=== PATIENT | male | born 1945 | race Caucasian/White ===

== ENCOUNTER 2017-10-25 11:58 | Emergency (ER) | payer MEDICARE ==
[~2017-10-25] VITALS: Ht 180.3 cm; Wt 113.4 kg
[2017-10-25] MEDS ORDERED: morphine INJ 10 MG/ML 1ML (SYR OR VIAL) IM STA (12:48)
--- NOTE | 2017-10-25 12:50 | ED Integumentary General ---
General Chief Complaint: Skin/Wound Problems Stated Complaint: LUMP ON BACK OF NECK Nursing Triage Note: dr attempted to naomi neck abscess, unable to get anything out Source: patient, caregiver Exam Limitations: no limitations History of Present Illness Date Seen by Provider: Oct 25, 2017 Time Seen by Provider: 12:40 Initial Comments 71-year-old male patient presents to the emergency department for complaints of a lump of the back of the neck. Patient states it's been there for years and has previously gotten inflamed. Today it is much worse. Reports being seen by Dr. Pitt today who attempted to the naomi the area without success. Timing/Duration: getting worse, other (worse 1 week) Severity: moderate Possible Cause: no cause identified Modifying Factors: worse with other (worse with palpation) Allergies and Home Medications Allergies Coded Allergies: No Known Drug Allergies (Unverified , 10/25/17) Home Medications Hydrocodone/Acetaminophen 1 Each Tablet, 1 EACH PO Q4H PRN for pain Prescribed by: REYES REDMOND on 10/25/17 1347 Sulfamethoxazole/Trimethoprim 1 Each Tablet, 1 EACH PO BID Prescribed by: REYES REDMOND on 10/25/17 1347 Patient Home Medication List Home Medication List Reviewed: Yes Constitutional: No chills, No fever, No malaise EENTM: no symptoms reported Respiratory: no symptoms reported Cardiovascular: no symptoms reported Gastrointestinal: no symptoms reported Musculoskeletal: no symptoms reported Skin: see HPI, lumps (posterior neck) Psychiatric/Neurological: No Symptoms Reported All Other Systems Reviewed Negative Unless Noted: Yes (Negative excepted noted.) Past Xsvfvvn-Pxhnuu-Izzpvj Hx Patient Social History Recent Foreign Travel: No Contact w/Someone Who Travel: No Recent Infectious Disease Expo: No Respiratory History of Respiratory Disorde: Yes Respiratory Disorders: Pneumonia Cardiovascular History of Cardiac Disorders: Yes (heart failure with lower extremity edema) Cardiac Disorders: Atrial Fibrillation (paroxysmal atrial fibrillation), Cardiomyopathy, Hypertension Neurological History of Neurological Disord: Yes (neuritis and neuralgia; dizziness) Gastrointestinal History of Gastrointestinal Di: Yes Gastrointestinal Disorders: Gastroesophageal Reflux, Hepatitis (alcohol- induced hepatitis) Musculoskeletal History of Musculoskeletal Dis: Yes (generalized muscle weakness, unsteadiness on feet) Endocrine History of Endocrine Disorders: Yes Endocrine Disorders: Diabetes, Non-Insulin dep Reviewed Nursing Assessment Reviewed/Agree w Nursing PMH: Yes Family Medical History Significant Family History: No Pertinent Family Hx Physical Exam Vital Signs Vital Signs - First Documented 10/25/17 12:32 Temp 97.9 Pulse 81 Resp 20 B/P (MAP) 101/62 (75) Pulse Ox 98 O2 Delivery Room Air Capillary Refill : Less Than 3 Seconds General Appearance: WD/WN, no apparent distress HEENT: PERRL/EOMI, pharynx normal Neck: full range of motion, supple, other (6 x 6 cm area of swelling, fluctuance, erythema, and warmth with a central scab. Tender to palpation. Findings consistent with an infected sebaceous cyst.) Cardiovascular: regular rate, rhythm, no murmur Respiratory: lungs clear, normal breath sounds, no respiratory distress, no accessory muscle use Extremities: normal capillary refill Neurologic/Psychiatric: alert, normal mood/affect, oriented x 3 Skin: normal color, warm/dry, other (6 x6 cm area of swelling, fluctuance, erythema, and warmth with a central scabof the posterior neck. Tender to palpation. Findings consistent with an infected sebaceous cyst.) Skin Problem Location: neck (posterior neck) Skin Problem Character: abscess, erythema, swelling, tenderness, thickening, warm I&D : Site: posterior neck Blade Size: 11 I & D Procedure: betadine prep, sterile drapes applied, sterile dressing applied Packing/Drain: 1/4 Jimmy Drain (0 Prolene to secure the jimmy drain) Progress 2 cm incision made over the fluctuant area. a large amount of foul smelling yellowish-green, thick, chunky drainage expressed. blood loss minimal. patient tolerated the procedure well. Progress/Results/Core Measures Results/Orders My Orders Orders - REYES REDMOND Morphine Injection (Morphine Injection (10/25/17 12:48) Wound Culture (10/25/17 12:48) Lidocaine/Epi 2% 1:100,000 (Xylocaine/Ep (10/25/17 13:00) Sulfamethoxazole/Trimet Ds Tab (Bactrim (10/25/17 14:00) Hydrocodone/Apap 5/325 Tablet (Lortab 5 (10/25/17 14:00) Medications Given in ED Vital Signs/I&O Vital Sign - Last 12Hours 10/25/17 10/25/17 12:32 14:25 Temp 97.9 97.9 Pulse 81 81 Resp 20 20 B/P (MAP) 101/62 (75) 101/62 (75) Pulse Ox 98 98 O2 Delivery Room Air Room Air Blood Pressure Mean: 75 Departure Communication (Admissions) Progress Notes Patient seen and evaluated. Incision and drainage performed. Plan for discharge to home. Impression Impression: Primary Impression: Abscess of skin of neck Additional Impression: Sebaceous cyst Disposition: Condition: Improved Departure-Patient Inst. Decision time for Depature: 13:44 Referrals: CRUZITO CHASE RICHARD A DO (PCP/Family) Primary Care Physician Patient Instructions: Abscess Incision and Drainage (DC) Add. Discharge Instructions: All discharge instructions reviewed with patient and/or family. Voiced understanding. Medications as instructed. Continue usual home medications. Remove the dressing and Shower with antibacterial soap beginning tomorrow. Pat the wound dry and to redress the wound after the shower. Change the dressing twice daily with gauze, ABDs pad, and tape. Follow-up with Dr. Chase within the next 5-7 days for recheck and drain removal. Discuss possible need for cyst excision with Dr. Chase. Call for appointment time. Return to the emergency department for worsened redness, fever, or any other concerns. Scripts Hydrocodone/Acetaminophen (Hydrocodone-Acetamin 5-325 mg) 1 Each Tablet 1 EACH PO Q4H Y for pain, #20 TAB 0 Refills Prov: REYES REDMOND 10/25/17 Sulfamethoxazole/Trimethoprim (Bactrim Ds Tablet) 1 Each Tablet 1 EACH PO BID, #20 TAB 0 Refills Prov: REYES REDMOND 10/25/17 Images Head/Face 1 - Cellulitis, Swelling, Tenderness, Other-See Progress Note (sebaceous cyst abscess) Copy Copies To 1: MACHO PITT GRETCHEN L PA Oct 25, 2017 12:50
[2017-10-25] MEDS ORDERED: LIDOCAINE/EPI 2% 1:100,00 (XYLOCAINE) 20 ML VIAL INJ ONE (13:00)
[2017-10-25] MEDS ORDERED: HYDR-3812 PO (13:47)
[2017-10-25] MEDS ORDERED: SULF1TAB35 PO (13:47)
[2017-10-25] MEDS ORDERED: HYDROcodone/APAP 5 MG/325 MG (LORTAB) TAB PO ONE (14:00)
[2017-10-25] MEDS ORDERED: TRIM/SULFAMETH 160/800 (SEPTRA DS) TAB PO ONE (14:00)
[2017-10-25 14:25] VITALS: BP 101/62
== END 2017-10-25 14:02 | disposition home or self-care (01) ==
LOC: EDUNIT# 11:58 → ER 12:03
DX: L72.3 Sebaceous cyst (principal); L02.11 Cutaneous abscess of neck; K21.9 Gastro-esophageal reflux disease without esophagitis; E11.9 Type 2 diabetes mellitus without complications; I48.91 Unspecified atrial fibrillation; I10 Essential (primary) hypertension; Z87.01 Personal history of pneumonia (recurrent)
CPT/HCPCS: 87070; 87205; 96372

== ENCOUNTER 2017-12-12 05:35 | Outpatient (CLI) | payer MEDICARE ==
[~2017-12-12] VITALS: Ht 180.3 cm; Wt 113.4 kg
[~2017-12-12 05:35] MED LIST: HYDR-3812 PO; SULF1TAB35 PO
[2017-12-13] MEDS ORDERED: CYAN100088 PO (10:14)
[2017-12-13] MEDS ORDERED: DIGO125T PO (10:14)
[2017-12-13] MEDS ORDERED: LISI10TA2 PO (10:14)
[2017-12-13] MEDS ORDERED: DILT240C87 PO (10:14)
[2017-12-13] MEDS ORDERED: POLY119P5 PO (10:14)
[2017-12-13] MEDS ORDERED: HYDR-3812 PO (10:14)
[2017-12-13] MEDS ORDERED: TRAZ150T72 PO (10:14)
[2017-12-13] MEDS ORDERED: METF500T5 PO (10:14)
[2017-12-13] MEDS ORDERED: WARF2.5T82 PO (10:14)
[2017-12-13] MEDS ORDERED: POTA-51 PO (10:14)
[2017-12-13] MEDS ORDERED: FOLI1TAB24 PO (10:14)
[2017-12-13] MEDS ORDERED: MULT-593 PO (10:14)
[2017-12-13] MEDS ORDERED: ACET325T49 PO (10:14)
[2017-12-13] MEDS ORDERED: WARF-47 PO (10:14)
== END 2017-12-12 16:00 ==
LOC: PREOP 05:35
PROVIDERS: ATTEND Specialist
DX: Z01.818 Encounter for other preprocedural examination (principal); H26.499 Other secondary cataract, unspecified eye

== ENCOUNTER 2017-12-20 08:07 | Day surgery (SDC) | payer MEDICARE ==
[~2017-12-20] VITALS: Ht 180.3 cm; Wt 113.4 kg
[~2017-12-20 08:07] MED LIST changes: +ACET325T49 PO; +CYAN100088 PO; +DIGO125T PO; +DILT240C87 PO; +FOLI1TAB24 PO; +LISI10TA2 PO; +METF500T5 PO; +MULT-593 PO; +POLY119P5 PO; +POTA-51 PO; +TRAZ150T72 PO; +WARF-47 PO; +WARF2.5T82 PO
[2017-12-20 08:16] VITALS: BP 133/79
[2017-12-20] MEDS: TETRACAINE 0.5% OPHTH SOLN 4 ML BTL (SINGLE DOSE ONLY) OU PRN ×4 (08:21→08:51)
[2017-12-20] MEDS: TROPICAMIDE 1% OPH SOLN (MYDRIACYL) 15 ML BTL OU PRN ×3 (08:25→08:51)
[2017-12-20] MEDS: PHENYLEPHRINE 10% OPHTH (NEO-SYN) 5 ML BTL OU PRN ×3 (08:25→08:51)
[2017-12-20 09:43] VITALS: BP 133/79
--- NOTE | 2017-12-20 09:46 | Ophthalmology Operative Report ---
YAG Capsulotomy PREOPERATIVE DIAGNOSIS: Secondary Cataract Both Eye POSTOPERATIVE DIAGNOSIS: Secondary Cataract Both Eye PROCEDURE: YAG Capsulotomy, both eye SURGEON: Dennys Adams ANESTHESIA: Topical anesthesia COMPLICATIONS: None ESTIMATED BLOOD LOSS: Minimal DESCRIPTION OF PROCEDURE: After proper informed consent was obtained, the patient's, a 72 male both eye received one drop of Tropicamide and one drop of Tetracaine. The patient was then placed at the YAG laser and using a power of [4.0 ] millijoules and [R 28, L 29 ] bursts were used to fashion a central capsulotomy. The patient tolerated the procedure well without complications and the patient's pressure was [11, 12 ] shortly after the laser. DENNYS ADAMS MD Dec 20, 2017 09:45
--- NOTE | 2017-12-20 09:46 | Ophthalmologist Pre-Op Note ---
Pre-Operative Progress Note H&P Reviewed The H&P was reviewed, patient examined and no changes noted. Date H&P Reviewed: Dec 20, 2017 Time H&P Reviewed: 09:46 Pre-Op Dx Secondary Cataract, Both Eye DARYN ADAMS MD Dec 20, 2017 09:46
== END 2017-12-20 09:43 | disposition home or self-care (01) ==
LOC: SDC 08:07
PROVIDERS: ATTEND Specialist
DX: H26.40 Unspecified secondary cataract (principal); E11.36 Type 2 diabetes mellitus with diabetic cataract; I48.91 Unspecified atrial fibrillation; I42.9 Cardiomyopathy, unspecified; R17 Unspecified jaundice; M79.2 Neuralgia and neuritis, unspecified; F17.200 Nicotine dependence, unspecified, uncomplicated; Z79.01 Long term (current) use of anticoagulants; Z79.84 Long term (current) use of oral hypoglycemic drugs; Z79.899 Other long term (current) drug therapy
CPT/HCPCS: 82962

== ENCOUNTER 2018-07-09 01:35 | Inpatient (IN) | payer MEDICARE ==
[~2018-07-09] VITALS: Ht 180.3 cm; Wt 81.4 kg
[2018-07-09] VITALS (28 sets, daily range): BP systolic 82–138; BP diastolic 46–89
[~2018-07-09 01:35] MED LIST changes: +METF-397 PO; -METF500T5 PO
[2018-07-09] MEDS ORDERED: NS IV 1000 ML 1,000 ML IV ONE (01:44)
[2018-07-09 01:48] LABS: BASOPHILS # (AUTO) 0.1 10^3/uL (0.0-0.1); BASOPHILS % (AUTO) 1 % (0-10); EOSINOPHILS # (AUTO) 0.2 10^3/uL (0.0-0.3); EOSINOPHILS % (AUTO) 2 % (0-10); HEMATOCRIT 32 % (40-54); HEMOGLOBIN 10.5 G/DL (13.3-17.7); LYMPHOCYTES # (AUTO) 2.4 X 10^3 (1.0-4.0); LYMPHOCYTES % (AUTO) 23 % (12-44); MEAN CORPUSCULAR HEMOGLOBIN 33 PG (25-34); MEAN CORPUSCULAR HGB CONC 33 G/DL (32-36); MEAN CORPUSCULAR VOLUME 101 FL (80-99); MEAN PLATELET VOLUME 9.8 FL (7.4-10.4); MONOCYTES % (AUTO) 9 % (0-12); NEUTROPHILS # (AUTO) 6.7 X 10^3 (1.8-7.8); NEUTROPHILS % (AUTO) 65 % (42-75); PLATELET COUNT 365 10^3/uL (130-400); RED BLOOD COUNT 3.14 10^6/uL (4.35-5.85); RED CELL DISTRIBUTION WIDTH 17.6 % (10.0-14.5); WHITE BLOOD COUNT 10.3 10^3/uL (4.3-11.0)
[2018-07-09 01:56] LABS: PROTHROMBIN TIME PATIENT 13.3 SEC (12.2-14.7)
[2018-07-09] MEDS ORDERED: CHLO25CA10 PO (02:07)
[2018-07-09] MEDS ORDERED: FURO-125 PO (02:07)
[2018-07-09] MEDS ORDERED: PANT40TA2 PO (02:07)
[2018-07-09] MEDS ORDERED: PREG50CA2 PO (02:07)
[2018-07-09] MEDS ORDERED: AMOX500C2 PO (02:07)
[2018-07-09 02:15] LABS: ALANINE AMINOTRANSFERASE 11 U/L (0-55); ALBUMIN 2.6 GM/DL (3.2-4.5); ALKALINE PHOSPHATASE 123 U/L (40-136); BILIRUBIN,TOTAL 0.4 MG/DL (0.1-1.0); BUN/CREATININE RATIO 13; CALCIUM 8.9 MG/DL (8.5-10.1); CARBON DIOXIDE 25 MMOL/L (21-32); CHLORIDE 103 MMOL/L (98-107); GFR ESTIMATED > 60; GLUCOSE 106 MG/DL (70-105); POTASSIUM 4.4 MMOL/L (3.6-5.0); SODIUM 137 MMOL/L (135-145); TOTAL PROTEIN 5.6 GM/DL (6.4-8.2)
--- NOTE | 2018-07-09 02:18 | ED General ---
General Chief Complaint: Cardiac/General Problems Stated Complaint: POSSIBLE HYPOTENSION Nursing Triage Note: BROUGHT IN BY [facility] FOR LOW BLOOD PRESSURE, LETHARGY, LOW SPO2 S/P FALL APPROX. 2230 07/08/18 Nursing Sepsis Screen: No Definite Risk Source of Information: Patient, Caregiver, EMS, [facility] Records Exam Limitations: Physical Impairments History of Present Illness Date Seen by Provider: Jul 09, 2018 Time Seen by Provider: 01:33 Initial Comments This 72-year-old gentleman from [facility] presents to the emergency room via EMS with altered mental status, hypotension, and hypoxia. He reportedly was found down after a fall in his room. They felt he likely slid out of his bed. Initially there was felt to be no injury. However , around 23:00 he developed slurred speech and hypotension. These symptoms worsened and EMS was activated. His fall was unwitnessed. Patient answers some questions on assessment and denies pain. He is hypoxic and requiring oxygen supplementation. He has a wet sounding cough. [facility] staff reports he was readmitted to them on July 02 after having been admitted at [facility] for treatment of pneumonia. He has history of GI bleed and is presently on warfarin for atrial fibrillation. Allergies and Home Medications Allergies Coded Allergies: No Known Drug Allergies (Unverified , 10/25/17) Home Medications Acetaminophen 325 Mg Tablet, 650 MG PO Q6H PRN for PAIN/FEVER, (Reported) Cyanocobalamin (Vitamin B-12) 1,000 Mcg Tablet, 1,000 MCG PO DAILY, (Reported) Digoxin 125 Mcg Tablet, 125 MCG PO DAILY, (Reported) Diltiazem HCl 240 Mg Capsule.er, 240 MG PO DAILY, (Reported) Folic Acid 1 Mg Tablet, 1 MG PO DAILY, (Reported) Lisinopril 10 Mg Tablet, 10 MG PO DAILY, (Reported) Metformin HCl 500 Mg Tablet, 500 MG PO BID WITH MEALS, (Reported) Multivitamin with Minerals 1 Each Tablet, 1 EACH PO DAILY, (Reported) Pantoprazole Sodium 40 Mg Tablet.dr, 40 MG PO DAILY, (Reported) Potassium Chloride 20 Meq Tablet.er, 20 MEQ PO DAILY, (Reported) Trazodone HCl 150 Mg Tablet, 150 MG PO HS, (Reported) Warfarin Sodium 2.5 Mg Tablet, 2.5 MG PO Q48H, (Reported) alternate with 2mg dose Patient Home Medication List Home Medication List Reviewed: Yes Review of Systems Review of Systems Constitutional: see HPI, weakness EENTM: no symptoms reported Respiratory: cough Cardiovascular: see HPI Gastrointestinal: no symptoms reported Genitourinary: no symptoms reported Musculoskeletal: no symptoms reported Skin: see HPI Psychiatric/Neurological: See HPI Hematologic/Lymphatic: No Symptoms Reported Immunological/Allergic: no symptoms reported Past Atvvqzz-Wapzmk-Enfask Hx Past Med/Social Hx: Reviewed Nursing Past Med/Soc Hx Patient Social History Alcohol Use: Past History Recreational Drug Use: No Smoking Status: Unknown if Ever Smoked 2nd Hand Smoke Exposure: No Recent Foreign Travel: No Contact w/Someone Who Travel: No Recent Infectious Disease Expo: No Recent Hopitalizations: No Immunizations Up To Date Tetanus Booster (TDap): Unknown Seasonal Allergies Seasonal Allergies: No Past Medical History Surgeries: No (UNKNOWN) Respiratory: Yes Pneumonia Cardiac: Yes (heart failure with lower extremity edema) Atrial Fibrillation, Cardiomyopathy, Hypertension Neurological: Yes (neuritis and neuralgia; dizziness) Genitourinary: No Gastrointestinal: Yes Gastroesophageal Reflux, Hepatitis Musculoskeletal: Yes (generalized muscle weakness, unsteadiness on feet) Endocrine: Yes Diabetes, Non-Insulin dep HEENT: No Cancer: No Psychosocial: No Blood Disorders: No Family Medical History No Pertinent Family Hx Physical Exam-Suspected Sepsis Physical Exam Vital Signs Vital Signs - First Documented Capillary Refill : Less Than 3 Seconds Blood Pressure Mean: 61 Height, Weight, BMI Height: 5'11.00" Weight: 230lbs. 0.0oz. 104.940186sa; BMI Method:Estimated General Appearance: No Apparent Distress, WD/WN, Other (lethargic) HEENT: PERRL/EOMI, Normal ENT Inspection Neck: Normal Inspection Respiratory: No Accessory Muscle Use, No Respiratory Distress, Crackles (coarse , wet) Cardiovascular: Regular Rate, Rhythm, No Edema, No Murmur Gastrointestinal: Normal Bowel Sounds, Non Tender, Soft Extremity: Normal Inspection, No Pedal Edema Neurologic/Psychiatric: Alert, Disoriented, Other (weak) Skin: normal color, other (Pale and cool) Focused Exam Lactate Level 07/09/18 01:50: Lactic Acid Level 1.00 Lactic Acid Level Progress/Results/Core Measures Suspected Sepsis Recent Fever Within 48 Hours: No Infection Criteria Present: Documented Infection New/Unexplained Altered Menta: No Sepsis Screen: No Definite Risk SIRS Temperature:98.1 Pulse: 72 Respiratory Rate: 20 Laboratory Tests 07/09/18 01:40: White Blood Count 10.3 Blood Pressure 84 /49 Mean: 61 07/09/18 01:50: Lactic Acid Level 1.00 Laboratory Tests 07/09/18 01:40: Creatinine 0.90, INR Comment 1.0, Platelet Count 365, Total Bilirubin 0.4 Results/Orders Lab Results Laboratory Tests Test 07/09/18 01:40 07/09/18 01:50 07/09/18 02:20 07/09/18 06:00 Range/Units White Blood Count 10.3 4.3-11.0 10^3/uL Red Blood Count 3.14 L 4.35-5.85 10^6/uL Hemoglobin 10.5 L 13.3-17.7 G/DL Hematocrit 32 L 40-54 % Mean Corpuscular Volume 101 H 80-99 FL Mean Corpuscular Hemoglobin 33 25-34 PG Mean Corpuscular Hemoglobin Concent 33 32-36 G/DL Red Cell Distribution Width 17.6 H 10.0-14.5 % Platelet Count 365 130-400 10^3/uL Mean Platelet Volume 9.8 7.4-10.4 FL Neutrophils (%) (Auto) 65 42-75 % Lymphocytes (%) (Auto) 23 12-44 % Monocytes (%) (Auto) 9 0-12 % Eosinophils (%) (Auto) 2 0-10 % Basophils (%) (Auto) 1 0-10 % Neutrophils # (Auto) 6.7 1.8-7.8 X 10^3 Lymphocytes # (Auto) 2.4 1.0-4.0 X 10^3 Monocytes # (Auto) 1.0 0.0-1.0 X 10^3 Eosinophils # (Auto) 0.2 0.0-0.3 10^3/uL Basophils # (Auto) 0.1 0.0-0.1 10^3/uL Prothrombin Time 13.3 12.2-14.7 SEC INR Comment 1.0 0.8-1.4 Activated Partial Thromboplast Time 35 24-35 SEC Sodium Level 137 135-145 MMOL/L Potassium Level 4.4 3.6-5.0 MMOL/L Chloride Level 103 98-107 MMOL/L Carbon Dioxide Level 25 21-32 MMOL/L Anion Gap 9 5-14 MMOL/L Blood Urea Nitrogen 12 7-18 MG/DL Creatinine 0.90 0.60-1.30 MG/DL Estimat Glomerular Filtration Rate > 60 BUN/Creatinine Ratio 13 Glucose Level 106 H 70-105 MG/DL Calcium Level 8.9 8.5-10.1 MG/DL Corrected Calcium 10.0 8.5-10.1 MG/DL Total Bilirubin 0.4 0.1-1.0 MG/DL Aspartate Amino Transf (AST/SGOT) 15 5-34 U/L Alanine Aminotransferase (ALT/SGPT) 11 0-55 U/L Alkaline Phosphatase 123 40-136 U/L B-Type Natriuretic Peptide 83.2 <100.0 PG/ML Total Protein 5.6 L 6.4-8.2 GM/DL Albumin 2.6 L 3.2-4.5 GM/DL Lactic Acid Level 1.00 0.50-2.00 MMOL/L Digoxin Level 0.69 L 0.80-2.00 NG/ML Urine Color YELLOW Urine Clarity CLEAR Urine pH 5 5-9 Urine Specific [place] 1.015 L 1.016-1.022 Urine Protein NEGATIVE NEGATIVE Urine Glucose (UA) NEGATIVE NEGATIVE Urine Ketones NEGATIVE NEGATIVE Urine Nitrite NEGATIVE NEGATIVE Urine Bilirubin NEGATIVE NEGATIVE Urine Urobilinogen NORMAL NORMAL MG/DL Urine Leukocyte Esterase 1+ H NEGATIVE Urine RBC (Auto) NEGATIVE NEGATIVE Urine RBC RARE /HPF Urine WBC RARE /HPF Urine Squamous Epithelial Cells RARE /HPF Urine Crystals NONE /LPF Urine Bacteria TRACE /HPF Urine Casts PRESENT /LPF Urine Hyaline Casts 2-5 H /LPF Urine Mucus MODERATE H /LPF Urine Culture Indicated NO Blood Gas Puncture Site L RAD Blood Gas Patient Temperature 97.0 Arterial Blood pH 7.34 *L 7.37-7.43 Arterial Blood Partial Pressure CO2 49 H 35-45 MMHG Arterial Blood Partial Pressure O2 46 L 79-93 MMHG Arterial Blood HCO3 26 23-27 MMOL/L Arterial Blood Total CO2 27.8 21.0-31.0 MMOL/L Arterial Blood Oxygen Saturation 79 L 94-100 % Arterial Blood Base Excess 0.9 -2.5-2.5 MMOL/L Brian Test YES-POS Blood Gas Ventilator Setting NO Blood Gas Inspired Oxygen 2L Glucometer 107 70-110 MG/DL Micro Results Microbiology 07/09/18 Influenza Types A,B Antigen (YOSSI) - Final, Complete My Orders Orders - LIONEL MAC MD Cbc With Automated Diff (07/09/18 01:43) Comprehensive Metabolic Panel (07/09/18 01:43) Blood Culture (07/09/18 01:43) Sputum Culture (07/09/18 01:43) Urinalysis (07/09/18 01:43) Urine Culture (07/09/18 01:43) Protime With Inr (07/09/18 01:43) Partial Thromboplastin Time (07/09/18 01:43) Chest 1 View, Ap/Pa Only (07/09/18 01:43) Saline Lock/Iv-Start (07/09/18 01:43) Saline Lock/Iv-Start (07/09/18 01:43) Vital Signs Adult Sepsis Patie Q15M (07/09/18 01:43) O2 (07/09/18 01:43) Remove Rings In Anticipation O (07/09/18 01:43) Lactic Acid Analyzer (07/09/18 01:43) Saline Lock/Iv-Start (07/09/18 01:44) Ns Iv 1000 Ml (Sodium Chloride 0.9%) (07/09/18 01:44) BNP (07/09/18 01:44) Influenza A And B Antigens (07/09/18 01:44) Ct Head/Cervical Spine Wo (07/09/18 02:06) Ct Chest/Abdomen/Pelvis Wo (07/09/18 02:09) Gleason Cath (07/09/18 02:09) Piperacillin Sodium/Tazobactam (Zosyn Vi (07/09/18 03:00) Digoxin (07/09/18 02:59) Medications Given in ED Current Medications Medications Dose Ordered Sig/Benito Route Start Time Stop Time Status Last Admin Dose Admin Piperacillin Sod/ Tazobactam Sod 4.5 gm/Sodium Chloride 100 ml @ 200 mls/hr ONCE ONCE IV 07/09/18 03:00 07/09/18 03:29 DC 07/09/18 03:03 200 MLS/HR Sodium Chloride 1,000 ml @ 0 mls/hr Q0M ONCE IV 07/09/18 01:44 07/09/18 01:45 DC 07/09/18 01:52 0 MLS/HR Vital Signs/I&O 1107/09/18 07/09/18 07/09/18 01:36 01:36 04:11 04:20 Temp 98.1 98.1 Pulse 72 64 Resp 20 14 B/P (MAP) 84/49 (61) 108/58 (75) Pulse Ox 98 97 94 O2 Delivery Simple Mask Simple Mask Simple Mask Room Air O2 Flow Rate 10.00 10.00 6.00 07/09/18 07/09/18 07/09/18 07/09/18 04:29 04:45 05:00 05:14 Temp 96.4 Pulse 65 64 64 Resp 12 11 12 B/P (MAP) 102/68 (79) 107/61 (76) 89/48 (62) Pulse Ox 94 94 93 93 O2 Delivery Room Air Room Air Room Air Nasal Cannula O2 Flow Rate 2.00 07/09/18 07/09/18 07/09/18 07/09/18 05:14 05:15 05:28 05:30 Pulse 64 61 65 65 Resp 12 14 B/P (MAP) 82/46 (58) 93/59 (70) Pulse Ox 96 94 100 O2 Delivery Nasal Cannula Nasal Cannula O2 Flow Rate 2.00 2.00 07/09/18 07/09/18 07/09/18 07/09/18 05:45 06:00 06:02 06:15 Temp 97.0 Pulse 62 64 63 Resp 11 12 12 B/P (MAP) 105/63 (77) 109/62 (78) 112/62 (79) Pulse Ox 99 100 100 O2 Delivery Nasal Cannula Nasal Cannula Nasal Cannula O2 Flow Rate 2.00 2.00 2.00 07/09/18 07/09/18 07/09/18 06:30 06:45 06:50 Pulse 64 65 Resp 12 B/P (MAP) 104/64 (77) 111/57 (75) Pulse Ox 95 94 92 O2 Delivery Nasal Cannula Nasal Cannula Nasal Cannula O2 Flow Rate 2.00 2.00 2.00 Capillary Refill : Less Than 3 Seconds Blood Pressure Mean: 61 Progress Note : Progress Note Hypotension resolved with 2 L IV fluids. There was concern that he may have an intracranial or intra-abdominal bleed given the hypotension and change in mental status. CT scan of the head revealed no intracranial hemorrhage. CT of the chest, abdomen and pelvis revealed a right lower lobe pneumonia but no evidence of internal bleeding. Antibiotics were started in the ER after blood cultures were drawn. Diagnostic Imaging Diagonstic Imaging: Xray Plain Films/CT/US/NM/MRI: chest Comments Chest x-ray viewed by me. Report not yet available. Probable basilar atelectasis with no overt pneumonia identified. Diagonstic Imaging: CT Plain Films/CT/US/NM/MRI: c-spine, head Comments CT head and C-spine viewed by me and stat rad report reviewed. No acute findings identified. Diagonstic Imaging: CT Plain Films/CT/US/NM/MRI: chest, abdomen, pelvis Comments CT viewed by me and [facility] report reviewed. There is a right lower lobe pneumonia and small pleural effusion. No evidence of internal bleeding. Departure Communication (Admissions) Time/Spoke to Admitting Phy: 03:00 Dr. Pitt Impression Primary Impression: Right lower lobe pneumonia Qualified Codes: J18.1 - Lobar pneumonia, unspecified organism Additional Impressions: Hypoxia Hypotension Qualified Codes: I95.9 - Hypotension, unspecified Altered mental status Qualified Codes: R41.82 - Altered mental status, unspecified Fall Qualified Codes: W19.XXXA - Unspecified fall, initial encounter Disposition: ADMITTED INPATIENT Condition: Improved Admissions Decision to Admit Reason: Admit from ER (General) Decision to Admit/Date: Jul 09, 2018 Time/Decision to Admit Time: 01:35 Departure-Patient Inst. Referrals: MACHO PITT DO (PCP/Family) Primary Care Physician LIONEL MAC MD Jul 09, 2018 02:18
[2018-07-09 02:27] LABS: BILIRUBIN,URINE NEGATIVE (NEGATIVE); CLARITY,URINE CLEAR; COLOR,URINE YELLOW; GLUCOSE, URINE (UA) NEGATIVE (NEGATIVE); KETONES,URINE NEGATIVE (NEGATIVE); LEUKOCYTE ESTERASE ,URINE 1+ (NEGATIVE); NITRITE,URINE NEGATIVE (NEGATIVE); PH,URINE 5 (5-9); PROTEIN,URINE NEGATIVE (NEGATIVE); UROBILINOGEN,URINE NORMAL (NORMAL)
[2018-07-09 02:48] LABS: BACTERIA,URINE TRACE /HPF; RBC,URINE RARE /HPF; SQUAMOUS EPITHELIAL CELL,UR RARE /HPF; WBC,URINE RARE /HPF
[2018-07-09] MEDS ORDERED: PIPERACILLIN SODIUM/TAZOBACTAM 4.5 GM in NS (IVPB) 100 ML IV ONE (03:00)
[2018-07-09] MEDS ORDERED: NS IV 1000 ML 1,000 ML ONE (05:07)
[2018-07-09] MEDS ORDERED: PHARMACY TO DOSE IV SCH (05:30)
[2018-07-09] MEDS ORDERED: CATHETER FLUSH 10 ML SYR IV PRN (05:30)
[2018-07-09] MEDS ORDERED: ONDANSETRON 4 MG/2 ML (SDV) Z0FRAN IV PRN (05:30)
--- NOTE | 2018-07-09 05:32 | Pulmonary Consultation ---
History of Present Illness History of Present Illness Date of Consultation 07/09/18 05:27 Date of Admission Allergies and Home Medications Allergies Coded Allergies: No Known Drug Allergies (Unverified , 10/25/17) Home Medications Acetaminophen 325 Mg Tablet, 650 MG PO Q6H PRN for PAIN/FEVER, (Reported) Cyanocobalamin (Vitamin B-12) 1,000 Mcg Tablet, 1,000 MCG PO DAILY, (Reported) Digoxin 125 Mcg Tablet, 125 MCG PO DAILY, (Reported) Diltiazem HCl 240 Mg Capsule.er, 240 MG PO DAILY, (Reported) Folic Acid 1 Mg Tablet, 1 MG PO DAILY, (Reported) Lisinopril 10 Mg Tablet, 10 MG PO DAILY, (Reported) Metformin HCl 500 Mg Tablet, 500 MG PO BID WITH MEALS, (Reported) Multivitamin with Minerals 1 Each Tablet, 1 EACH PO DAILY, (Reported) Pantoprazole Sodium 40 Mg Tablet.dr, 40 MG PO DAILY, (Reported) Potassium Chloride 20 Meq Tablet.er, 20 MEQ PO DAILY, (Reported) Trazodone HCl 150 Mg Tablet, 150 MG PO HS, (Reported) Warfarin Sodium 2.5 Mg Tablet, 2.5 MG PO Q48H, (Reported) alternate with 2mg dose Past Ehqxdqi-Leghjl-Znymoi Hx Patient Social History Alcohol Use: Past History Recreational Drug Use: No Smoking Status: Unknown if Ever Smoked 2nd Hand Smoke Exposure: No Recent Foreign Travel: No Contact w/Someone Who Travel: No Recent Infectious Disease Expo: No Recent Hopitalizations: No Immunizations Up To Date Tetanus Booster (TDap): Unknown Seasonal Allergies Seasonal Allergies: No Past Medical History Surgeries: No (UNKNOWN) Respiratory: Yes Pneumonia Cardiac: Yes (heart failure with lower extremity edema) Atrial Fibrillation, Cardiomyopathy, Hypertension Neurological: Yes (neuritis and neuralgia; dizziness) Genitourinary: No Gastrointestinal: Yes Gastroesophageal Reflux, Hepatitis Musculoskeletal: Yes (generalized muscle weakness, unsteadiness on feet) Endocrine: Yes Diabetes, Non-Insulin dep HEENT: No Cancer: No Psychosocial: No Blood Disorders: No Family Medical History No Pertinent Family Hx Sepsis Event Evaluation Height, Weight, BMI Height: 5'11.00" Weight: 180lbs. 6.0oz. 81.956012vh; 25.2 BMI Method:Estimated Exam Exam Vital Signs Date Time Temp Pulse Resp B/P (MAP) Pulse Ox O2 Delivery O2 Flow Rate FiO2 07/09/18 05:14 93 Nasal Cannula 2.00 07/09/18 04:29 96.4 65 12 102/68 (79) 94 Room Air 07/09/18 04:11 98.1 64 14 108/58 (75) 97 Simple Mask 6.00 07/09/18 01:36 Simple Mask 10.00 07/09/18 01:36 98.1 72 20 84/49 (61) 98 Simple Mask 10.00 I & O 07/09/18 07:00 Intake Total 2400 ml Balance 2400 ml Height & Weight Height: 5'11.00" Weight: 180lbs. 6.0oz. 81.194425pc; 25.2 BMI Method:Estimated Capillary Refill: Less Than 3 Seconds Results Lab Laboratory Tests 07/09/18 01:40 Assessment/Plan Assessment/Plan Pneumonia with hypoxia -Change Abx to Jamin Talbot for now -Pt was recently in hospital at [facility] cultures -Urine strep, legionella ag -oxygen Hypotension probably secondary to dehydration -NS at 125 -Will give 1 liter bolus NS Confusion/dementia DVT/GI ppx -SCDs -protonix -Lovenox NEREYDA DUMONT DO Jul 09, 2018 05:32
[2018-07-09] MEDS: CATHETER FLUSH 10 ML SYR IV SCH ×3 (05:35→21:49)
[2018-07-09] MEDS: NS IV 1000 ML 1,000 ML IV SCH ×2 (05:36→15:22)
[2018-07-09] MEDS ORDERED: RT-ALBUTEROL SULF 2.5 MG/3 ML PRE-MIX VIAL INH PRN (05:45)
[2018-07-09] MEDS ORDERED: NS IV 1000 ML 1,000 ML IV SCH (05:45)
[2018-07-09 06:09] LABS: ABG BASE EXCESS 0.9 MMOL/L (-2.5-2.5); ABG OXYGEN SATURATION 79 % (94-100); ABG PCO2 49 MMHG (35-45); ABG PO2 46 MMHG (79-93); ABG TCO2 27.8 MMOL/L (21.0-31.0)
[2018-07-09 06:13] LABS: ALLENS TEST YES-POS
[2018-07-09 06:14] LABS: INSPIRED O2 2L; VENTILATOR NO
[2018-07-09 06:15] LABS: ABG PH 7.34 (7.37-7.43)
--- NOTE | 2018-07-09 06:29 | Diagnostic Imaging Report ---
CLINICAL INDICATION: Patient with low blood pressure, lethargy, low oxygen saturation status post fall approximately 2230 hours on 07/08/2018 . EXAM: Head CT without IV contrast. Axial CT scan of the cervical spine with sagittal and coronal reformations. COMPARISON: None. FINDINGS: Head CT: There is no evidence of acute cerebral infarct, intracranial hemorrhage, or gross mass effect. There is diffuse brain parenchymal volume loss seen. There is patchy and confluent areas of low-attenuation white matter changes throughout both cerebral hemispheres, likely representing chronic small vessel ischemic disease. There is normal petit-white matter distinction. There is no significant midline shift or herniation. There is no evidence of hydrocephalus. The basal cisterns are unremarkable. The skull, extracranial soft tissue, and orbits are unremarkable. The paranasal sinuses are unremarkable. Temporal bones show no significant abnormality. Cervical spine: There is no acute cervical spine fracture or dislocation. There is chronic compression deformity involving the upper endplate of the T2 vertebra and inferior endplate of the C3 vertebra. There is diffuse disc bulge at the C4-C5 with associated usqpmrbd-[id number] bilateral neural foramen narrowing. There is at least mild central canal narrowing. There is wqiuvmch-mm-cqzpec loss of intervertebral disc height at the C4-C5 level. There are degenerative spurs seen throughout cervical spine and facet arthropathy. The neck soft tissue structures show no significant abnormality for patient's age. There is an incompletely visualized right pleural effusion and azygous lobe. IMPRESSION: 1: Age-related brain parenchymal changes with no evidence of acute intracranial process or intracranial hemorrhage. There is no skull fracture. 2: Multilevel cervical spine degenerative disease with no acute fracture or dislocation. 3: Right pleural effusion and azygous lobe. I agree with [employer] report. Dictated by: Dictated on workstation # [id number]
[2018-07-09] MEDS: RT-ALBUTEROL/IPRATROPIUM 3 ML (DUONEB) VIAL INH SCH ×3 (06:49→14:16)
--- NOTE | 2018-07-09 07:04 | Diagnostic Imaging Report ---
Clinical indication: Patient brought in by EMS with low blood pressure, lethargy, low oxygen saturation status post fall. Exam: Portable chest x-ray upright view. Comparison: None. Findings: There is decreased aeration right lung with patchy airspace opacification right lung base concerning for infiltrate or atelectasis. There is concern for right pleural effusion. There is no pneumothorax. Azygous lobe is seen. Left lung is clear. There is cardiomegaly with no significant pulmonary vascular congestion. There are degenerative spurs involving the thoracic spine. Impression: 1: There is right basilar atelectasis versus infiltrate and small right pleural effusion. 2: There is cardiomegaly with no significant pulmonary vascular congestion. Dictated by: Dictated on workstation # [id number]
[2018-07-09] MEDS ORDERED: VANCOMYCIN 1,750 MG/NS 500 ML IVPB IV NR ×2 (07:35)
--- NOTE | 2018-07-09 07:38 | History & Physicial ---
History of Present Illness History of Present Illness Reason for visit/HPI Patient recent resident of [facility] and [facility]. Patient had an unwitnessed fall. Patient's blood pressure 50/30, lethargic and low pulse ox. Patient recently and [facility] for pneumonia. Patient in acute mental status change and slurred speech. Patient transferred to emergency room area Chest x-ray shows opacified right lung base concerning for infiltrate or atelectasis and right pleural effusion. Patient has are moist and difficult to understand. Patient admitted to ICU Date of Admission Jul 09, 2018 at 03:27 Time Seen by a Provider: 07:33 I consulted on this patient on 07/09/18 07:26 Attending Physician Sigifredo Pitt DO Admitting Physician Sigifredo Pitt DO Consult Allergies and Home Medications Allergies Coded Allergies: No Known Drug Allergies (Unverified , 10/25/17) Home Medications Acetaminophen 325 Mg Tablet, 650 MG PO Q6H PRN for PAIN/FEVER, (Reported) Cyanocobalamin (Vitamin B-12) 1,000 Mcg Tablet, 1,000 MCG PO DAILY, (Reported) Digoxin 125 Mcg Tablet, 125 MCG PO DAILY, (Reported) Diltiazem HCl 240 Mg Capsule.er, 240 MG PO DAILY, (Reported) Folic Acid 1 Mg Tablet, 1 MG PO DAILY, (Reported) Lisinopril 10 Mg Tablet, 10 MG PO DAILY, (Reported) Metformin HCl 500 Mg Tablet, 500 MG PO BID WITH MEALS, (Reported) Multivitamin with Minerals 1 Each Tablet, 1 EACH PO DAILY, (Reported) Pantoprazole Sodium 40 Mg Tablet.dr, 40 MG PO DAILY, (Reported) Potassium Chloride 20 Meq Tablet.er, 20 MEQ PO DAILY, (Reported) Trazodone HCl 150 Mg Tablet, 150 MG PO HS, (Reported) Warfarin Sodium 2.5 Mg Tablet, 2.5 MG PO Q48H, (Reported) alternate with 2mg dose Patient Home Medication List Home Medication List Reviewed: No Past Tfubvka-Bdbedf-Htlbgo Hx Patient Social History Employed/Student: retired Alcohol Use: Regular Use Number of Drinks Today: 1 Alcohol Beverage of Choice: Whiskey, Wine Recreational Drug Use: No Smoking Status: Unknown if Ever Smoked 2nd Hand Smoke Exposure: No Physical Abuse Screen: No Sexual Abuse: No Recent Foreign Travel: No Contact w/other who traveled: No Recent Hopitalizations: No Recent Infectious Disease Expo: No Immunizations Up To Date Tetanus Booster (TDap): Unknown Date of Pneumonia Vaccine: May 07, 2018 Date of Influenza Vaccine: May 14, 2018 Seasonal Allergies Seasonal Allergies: No Surgeries No (UNKNOWN) Respiratory Yes Cardiovascular Yes (heart failure with lower extremity edema) Atrial Fibrillation, Cardiomyopathy, Hypertension Neurological Yes (neuritis and neuralgia; dizziness) Genitourinary Yes (current UTI) Gastrointestinal Yes (ileus) Gastroesophageal Reflux, Liver Disease/Jaundice, Gastrointestinal Bleed, Hepatitis Musculoskeletal Yes (generalized muscle weakness, unsteadiness on feet) Endocrine History of Endocrine Disorders: Yes Endocrine Disorders: Diabetes, Non-Insulin dep HEENT History of HEENT Disorders: No Loss of Vision: Denies Hearing Impairment: Denies Cancer No Psychosocial History of Psychiatric Problem: Yes Behavioral Health Disorders: Anxiety, Depression Integumentary History of Skin or Integumenta: No Blood Transfusions History of Blood Disorders: Yes (anemia) Family Medical History Significant Family History: No Pertinent Family Hx Review of Systems Constitutional: weakness EENTM: no symptoms reported Respiratory: other (Congestion and chest) Cardiovascular: no symptoms reported, other (History of atrial fib but sounds sinus) Gastrointestinal: no symptoms reported Genitourinary: no symptoms reported, other (Recent history of UTI) Physical Exam Vital Signs Vital Signs - First Documented Capillary Refill : Less Than 3 Seconds Height, Weight, BMI Height: 5'11.00" Weight: 180lbs. 6.0oz. [id number]; 25.2 BMI Method:Estimated General Appearance: No Apparent Distress, WD/WN Eyes: Bilateral Eye Normal Inspection HEENT: Normal ENT Inspection Neck: Full Range of Motion, Normal Inspection Respiratory: No Accessory Muscle Use, No Respiratory Distress, Other (Lung congestion) Cardiovascular: Regular Rate, Rhythm Assessment/Plan Assessment and Plan Unwitnessed fall. Hypotension. Lethargy. Acute mental status change. Pneumonia. DO NOT RESUSCITATE. Hypoxia. History of atrial fibrillation Admission Diagnosis Admission Status: Inpatient Order (span 2 midnights) Reason for Inpatient Admission: On weakness for. Hypotension. Pathology. Treatment status change. Pneumonia. Hypoxia Clinical Quality Measures DVT/VTE Risk/Contraindication: Risk Factor Score Per Nursin RFS Level Per Nursing on Admit: 4+=Very High SIGIFREDO PITT DO Jul 09, 2018 07:38
[2018-07-09] MEDS: ENOXAPARIN 40 MG/0.4 ML (LOVENOX) SYR SC SCH (08:16)
[2018-07-09] MEDS: PIPERACILLIN/TAZO 4.5 GM/NS 100 ML IV SCH ×4 (08:17→17:42)
--- NOTE | 2018-07-09 08:36 | Diagnostic Imaging Report ---
Clinical indication: Patient brought in by EMS for low blood pressure, lethargy, low oxygen saturation. Patient status post fall approximately 2230 hrs on 07/08/2018. Exam: CT scan of the chest, abdomen, and pelvis performed without IV or enteric contrast. Sagittal and coronal reformatted images are created. Comparison: None. Findings: CT chest: Azygous lobe is seen. There is a small to moderate-sized right pleural effusion. There is patchy consolidation involving the posterior aspect of the right lower lobe with volume loss seen. There is also mild patchy consolidation involving the left lung base posteriorly which may represent atelectasis versus infiltrate. There is a 7 mm nodule involving the lateral periphery of the middle lobe with adjacent consolidation. The remainder of the lungs are clear. Limited visualization of the thyroid gland is unremarkable. There is subcentimeter mediastinal and hilar lymph nodes. There is coronary artery calcification seen. There is mild pericardial fluid seen. There is no axillary lymphadenopathy. Extrathoracic soft tissue shows gynecomastia bilaterally. There is a mild compression deformity of the T6 vertebra with no cortical disruption which appears to be chronic. CT abdomen and pelvis: There is a chronic appearing anterior wedge compression deformity of the T12 vertebra and chronic Schmorl's nodes. There is also prominent chronic Schmorl's node involving the upper L1 endplate. There are hypertrophic spurs and facet arthropathy involving the lumbar spine. The liver, spleen, and adrenal glands are unremarkable. There is small hyperdense stone seen within the fundus of the gallbladder. There is no significant gallbladder wall thickening. There is a moderate amount of fluid in the gallbladder. There is mild atrophy of the pancreas. There is mild to moderate fat stranding adjacent to both kidneys which may be age-related. There is a roughly 10 mm cyst involving the upper posterior lateral aspect of the left kidney. There is also a cyst involving the posterior lateral aspect of the mid left kidney. There is no renal mass, hydronephrosis, or renal stones seen. There is a Gleason catheter seen within the bladder which is near completely decompressed. There is marked bladder wall thickening seen. There is a small to moderate amount of stool within the rectum. There is colonic diverticula involving the sigmoid colon, descending colon, and ascending colon regions. There is no evidence of diverticulitis. Appendix is unremarkable. There is no significant intra-abdominal free air or free fluid. There are small subcentimeter mesenteric lymph nodes seen. These are nonspecific. There are small subcentimeter periaortic lymph nodes also seen. There is no intestinal obstruction seen. There is no intra-abdominal mass. There are phleboliths seen in the pelvis. There are vascular calcifications seen. The extra-abdominal and extra pelvic soft tissue structures are unremarkable. Abdominal aorta is nonaneurysmal. Impression: 1: There is a small to moderate-sized right pleural effusion with right basilar atelectasis. Superimposed infiltrate can't be completely excluded. 2: There is mild left lung base atelectasis versus infiltrate posteriorly. 3: There is diffuse bladder wall thickening and the bladder is near completely decompressed with Gleason catheter within it. This may be related to bladder contraction or dystonia. Cystitis also can't be completely excluded. 4: There is fat stranding adjacent to both kidneys with no other acute abnormality seen. Urinalysis would help exclude any possibility of pyelonephritis. 5: Cholelithiasis with no CT evidence of cholecystitis. 6: Diverticulosis with no CT evidence of diverticulitis. 7: Likely chronic appearing compression deformities of the T6 vertebra, T12, and L1 vertebra. I agree with [employer] report. Dictated by: Dictated on workstation # [id number]
[2018-07-09] MEDS ORDERED: AZITHROMYCIN 500 MG/NS 250 ML IVPB IV SCH ×2 (09:00)
[2018-07-09 09:35] LABS: ABG BASE EXCESS -0.8 MMOL/L (-2.5-2.5); ABG OXYGEN SATURATION 100 % (94-100); ABG PCO2 47 MMHG (35-45); ABG PO2 280 MMHG (79-93); ABG TCO2 26.1 MMOL/L (21.0-31.0)
[2018-07-09 09:36] LABS: ABG PH 7.33 (7.37-7.43); ALLENS TEST YES-POS
[2018-07-09 09:37] LABS: INSPIRED O2 15; PATIENT TEMP 96.9; VENTILATOR NO
--- NOTE | 2018-07-09 09:39 | Diagnostic Imaging Report ---
Clinical indication: Patient with extreme wheezing and shortness of air. Exam: Portable chest x-ray upright view. Comparisons: Chest x-ray dated 07/09/2018. Findings: There is development of a small to moderate-sized right pleural effusion and slight increase groundglass opacification involving the right lung base concerning for lung infiltrate and/or atelectasis. There is mild patchy left lung base atelectasis versus infiltrate. There is no left pleural effusion. There is no pneumothorax. Stable cardiomegaly. Pulmonary vasculature is mildly congested. Azygous lobe is noted. The remainder of this exam shows no significant interval change compared to the prior study of comparison. Impression: 1: Slight increase of the small to moderate right pleural effusion and slightly increased right basilar atelectasis versus infiltrate. 2: There is development of mild left basilar atelectasis versus infiltrate. Dictated by: Dictated on workstation # [id number]
--- NOTE | 2018-07-09 09:54 | Speech Therapy Progress Note ---
Therapy Progress Note Patient was seen in the ICU this am per physician's order for dysphagia evaluation. Nursing was waiting on Respiratory Therapy to arrive to do their assessment to determine safety to proceed with the dysphagia evaluation. Patient was noted to present with fullness in the laryngeal area due to excessive phlegm. Patient was also noted to have difficulty breathing with O2 canula in place. Respiratory Therapy staff arrived and following assessment determined patient was not safe for PO trials. ST will follow up with second attempt for dysphagia evaluation when he is cleared for PO trials. JOE LYONS Jul 09, 2018 09:54
--- NOTE | 2018-07-09 10:07 | Pulmonary Progress Note ---
Standard Progress Note Progress Notes Time Seen by Provider: 09:50 Called to bedside secondary to progressive respiratory distress. Pt is now on NRB. He is lethargic however following commands. RT attempt BiPAP however pt did not tolerated. Repeat labs and CXR are pending. PT is currently a DNR. His BS are diminished bilaterally and coarse. Pt does move all extremities with heavy prompting. This 72-year-old gentleman from [facility] presents to the emergency room via EMS with altered mental status, hypotension, and hypoxia. He reportedly was found down after a fall in his room. They felt he likely slid out of his bed. Initially there was felt to be no injury. However , around 23:00 he developed slurred speech and hypotension. These symptoms worsened and EMS was activated. His fall was unwitnessed. Patient answers some questions on assessment and denies pain. He is hypoxic and requiring oxygen supplementation. He has a wet sounding cough. [facility] staff reports he was readmitted to them on July 02 after having been admitted at [facility] for treatment of pneumonia. He has history of GI bleed and is presently on warfarin for atrial fibrillation. Assessment & Plan Pneumonia with hypoxia -Change Abx to Jamin Talbot for now -Pt was recently in hospital at [facility] -Villafuerte cultures -Urine strep, legionella ag -oxygen Respiratory failure -BiPAP - pt did not tolerate -Will place patient on Vapotherm -currently on NRB -Repeat labs and CXR - pending Hypotension probably secondary to dehydration -NS at 125 -Will give 1 liter bolus NS Confusion/dementia - DVT/GI ppx -SCDs -protonix -Lovenox UPdate 1100: -Called to bedside stat secondary to worsening respiratory status. Pt now appears not to be able to protect his airway. He is gargling. He will move right side however appears to be weaker on the left side. PT appears to be having waxing and waning symptoms since 2300 last night. Pt has not received any sedation. Critical Care: Critically Ill Patient Time spent with patient (mins): 60 Focused Exam Lactate Level 07/09/18 01:50: Lactic Acid Level 1.00 Time of Focused Exam: 11:11 Respiratory: Accessory Muscle Use, Crackles, Decreased Breath Sounds, Respiratory Distress, Rhonci Cardiovascular: Regular Rate, Rhythm, No Edema, No Gallop Capillary Refill: Less Than 3 Seconds Skin: warm/dry, cool NEREYDA DUMONT DO Jul 09, 2018 10:07
[2018-07-09 10:16] LABS: BUN/CREATININE RATIO 13; CALCIUM 8.2 MG/DL (8.5-10.1); CARBON DIOXIDE 25 MMOL/L (21-32); CHLORIDE 108 MMOL/L (98-107); CREATININE SERUM 0.71 MG/DL (0.60-1.30); GFR ESTIMATED > 60; GLUCOSE 125 MG/DL (70-105); PHOSPHORUS 4.3 MG/DL (2.3-4.7); POTASSIUM 3.4 MMOL/L (3.6-5.0); SODIUM 140 MMOL/L (135-145)
[2018-07-09] MEDS: MAGNESIUM 1 GM/100 ML IVPB 100 ML IV SCH ×4 (11:45→15:22)
[2018-07-09] MEDS ORDERED: methylPREDNISolone 125 MG (Solu-MEDROL) VIAL IVP NR (11:45)
[2018-07-09] MEDS ORDERED: FUROSEMIDE 40 MG/4 ML INJ (LASIX) IVP NR (11:45)
--- NOTE | 2018-07-09 11:54 | Diagnostic Imaging Report ---
PROCEDURE: CT angiography of the head and CT angiography of the neck with and without contrast. TECHNIQUE: Contiguous noncontrast images were obtained from the skull base through the vertex. After intravenous contrast administration, helical CT angiography of the neck was performed. Source data was reformatted into multiple MIP projections. Delayed post contrast acquisition was also obtained. INDICATION: Altered mental status. COMPARISON: CT head performed earlier same day 9 hours prior. FINDINGS: Noncontrast CT head: No hyperdense hemorrhage or space-occupying mass. No hydrocephalus or midline shift. Global atrophy is unchanged. Periventricular white matter hypoattenuation is stable and compatible with chronic microvascular ischemic disease. No acute skull fracture. CTA neck: Conventional three-vessel branching pattern from the aortic arch. The bilateral common carotid arteries are widely patent. There is atherosclerotic plaquing of the proximal internal carotid arteries bilaterally which results in less than 25% stenosis on the right and approximately 30-40% stenosis on the left NASCET criteria. The cervical portions of bilateral internal carotid arteries are widely patent. External carotid arteries are patent centrally. The left vertebral artery is dominant with a hypoplastic right vertebral artery. However, both vertebral arteries remain patent throughout the neck. The right vertebral artery terminates in PICA. No cervical lymphadenopathy. Airway is patent. Lung apices are clear. CTA head: The distal internal carotid arteries are patent. No supraclinoid saccular aneurysm. Calcified plaquing is present in the distal internal carotid arteries which does not appear to be flow-limiting. The bilateral M1 and M2 divisions of the middle cerebral arteries are patent. The left vertebral intracranial segments supplies the basilar artery. Basilar artery is widely patent without significant stenosis. The bilateral posterior cerebral arteries are patent. There is no saccular aneurysm within the posterior or anterior communicating arteries. No basilar tip aneurysm. IMPRESSION: 1. No acute intracranial hemorrhage. 2. No occlusion or high-grade stenosis within the major neck arteries. 3. No intracranial major artery occlusion or significant stenosis. Dictated by: Dictated on workstation # [id number]
[2018-07-09] MEDS: POTASSIUM CL 10MEQ/50ML IVPB 50 ML IV SCH ×6 (12:15→18:13)
[2018-07-09] MEDS: methylPREDNISolone 40 MG/ML (Solu-MEDROL) VIAL IV SCH (18:15)
[2018-07-09 19:38] LABS: BUN/CREATININE RATIO 10; CALCIUM 8.9 MG/DL (8.5-10.1); CARBON DIOXIDE 26 MMOL/L (21-32); CHLORIDE 102 MMOL/L (98-107); GFR ESTIMATED > 60; GLUCOSE 196 MG/DL (70-105); MAGNESIUM 1.7 MG/DL (1.8-2.4); PHOSPHORUS 3.9 MG/DL (2.3-4.7); POTASSIUM 4.1 MMOL/L (3.6-5.0); SODIUM 137 MMOL/L (135-145)
[2018-07-09] MEDS ORDERED: VANCOMYCIN 1250 MG/NS 250 ML IVPB IV SCH ×2 (20:00)
[2018-07-09] MEDS: RT-ALBUTEROL SULF 2.5 MG/3 ML PRE-MIX VIAL INH SCH (22:19)
[2018-07-10] VITALS (12 sets, daily range): BP systolic 102–136; BP diastolic 57–105
[2018-07-10] MEDS: methylPREDNISolone 40 MG/ML (Solu-MEDROL) VIAL IV SCH (00:47)
[2018-07-10] MEDS: PIPERACILLIN/TAZO 4.5 GM/NS 100 ML IV SCH ×2 (00:47)
[2018-07-10] MEDS ORDERED: 1/2 NS IV SOLUTION 1,000 ML IV PRN (01:58)
[2018-07-10] MEDS ORDERED: LORazepam 1 MG (ATIVAN) TAB PO PRN (02:00)
[2018-07-10] MEDS ORDERED: ONDANSETRON 4 MG (ZOFRAN) ORAL DISSOLVE TAB SL PRN (02:00)
[2018-07-10] MEDS ORDERED: ANTACID SUSP 30 ML UDC (MYLANTA) PO PRN (02:00)
[2018-07-10] MEDS ORDERED: SENNA W/DOCUSATE (SENOKOT S) TABLET PO PRN (02:00)
[2018-07-10] MEDS ORDERED: ONDANSETRON 4 MG/2 ML (SDV) Z0FRAN IV PRN (02:00)
[2018-07-10] MEDS ORDERED: D5 1/2 NS 1000 ML IV SOLUTION 1,000 ML IV PRN (02:00)
[2018-07-10] MEDS ORDERED: LORazepam INJ 2 MG/ML (ATIVAN) VIAL ONE (03:17)
[2018-07-10] MEDS: LORazepam INJ 2 MG/ML (ATIVAN) VIAL IV PRN (03:21)
[2018-07-10 03:42] LABS: BASOPHILS % (AUTO) 0 % (0-10); EOSINOPHILS % (AUTO) 0 % (0-10); HEMATOCRIT 34 % (40-54); HEMOGLOBIN 11.1 G/DL (13.3-17.7); LYMPHOCYTES # (AUTO) 0.6 X 10^3 (1.0-4.0); LYMPHOCYTES % (AUTO) 9 % (12-44); MEAN CORPUSCULAR HEMOGLOBIN 32 PG (25-34); MEAN CORPUSCULAR HGB CONC 33 G/DL (32-36); MEAN CORPUSCULAR VOLUME 99 FL (80-99); MEAN PLATELET VOLUME 10.1 FL (7.4-10.4); MONOCYTES # (AUTO) 0.1 X 10^3 (0.0-1.0); MONOCYTES % (AUTO) 1 % (0-12); NEUTROPHILS # (AUTO) 5.8 X 10^3 (1.8-7.8); NEUTROPHILS % (AUTO) 90 % (42-75); PLATELET COUNT 355 10^3/uL (130-400); RED BLOOD COUNT 3.43 10^6/uL (4.35-5.85); RED CELL DISTRIBUTION WIDTH 16.6 % (10.0-14.5); WHITE BLOOD COUNT 6.4 10^3/uL (4.3-11.0)
[2018-07-10 04:05] LABS: BAND NEUTROPHILS 0 %; BASOPHILS % (MANUAL) 0 %; BUN/CREATININE RATIO 11; CALCIUM 8.8 MG/DL (8.5-10.1); CARBON DIOXIDE 24 MMOL/L (21-32); CHLORIDE 103 MMOL/L (98-107); CREATININE SERUM 0.65 MG/DL (0.60-1.30); EOSINOPHILS % (MANUAL) 0 %; GFR ESTIMATED > 60; GLUCOSE 199 MG/DL (70-105); LYMPHOCYTES % (MANUAL) 4 %; MAGNESIUM 1.4 MG/DL (1.8-2.4); MONOCYTES % (MANUAL) 4 %; NEUTROPHILS % (MANUAL) 92 %; PHOSPHORUS 3.3 MG/DL (2.3-4.7); POTASSIUM 3.7 MMOL/L (3.6-5.0); SODIUM 138 MMOL/L (135-145)
[2018-07-10 04:06] LABS: ANISOCYTOSIS SLIGHT; HYPOCHROMASIA SLIGHT; TARGET CELLS SLIGHT
[2018-07-10 04:07] LABS: PROTHROMBIN TIME PATIENT 13.1 SEC (12.2-14.7)
[2018-07-10] MEDS: NS IV 1000 ML 1,000 ML IV SCH (04:33)
--- NOTE | 2018-07-10 05:25 | Pulmonary Progress Note ---
Subjective Time Seen by a Provider: 05:32 Subjective/Events-last exam PT is doing better respiratory olivas. He is now on RA oxygen. Sepsis Event Evaluation Height, Weight, BMI Height: 5'11.00" Weight: 180lbs. 6.0oz. 81.093527sx; 25.2 BMI Method:Estimated Focused Exam Lactate Level 07/09/18 01:50: Lactic Acid Level 1.00 Time of Focused Exam: 11:11 Exam Exam Vital Signs Date Time Temp Pulse Resp B/P (MAP) Pulse Ox O2 Delivery O2 Flow Rate FiO2 07/10/18 04:00 Nasal Cannula 2.00 07/10/18 04:00 89 29 132/77 (95) Nasal Cannula 2.00 07/10/18 03:00 81 15 136/75 (95) Nasal Cannula 2.00 07/10/18 02:00 96 13 135/79 (97) Nasal Cannula 2.00 07/10/18 01:00 90 07/10/18 01:00 90 13 102/66 (78) Nasal Cannula 2.00 07/10/18 00:10 97.6 07/10/18 00:00 86 18 111/57 (75) Nasal Cannula 2.00 07/10/18 00:00 Nasal Cannula 2.00 07/09/18 23:00 84 17 112/72 (85) 99 Nasal Cannula 2.00 07/09/18 22:19 100 Nasal Cannula 2.50 07/09/18 22:00 81 10 121/89 (100) 100 Nasal Cannula 2.00 07/09/18 21:00 84 15 107/65 (79) 100 Nasal Cannula 2.00 07/09/18 20:51 97.8 07/09/18 20:00 86 18 115/71 (86) 100 Nasal Cannula 2.00 07/09/18 20:00 Nasal Cannula 2.00 07/09/18 19:00 91 07/09/18 19:00 91 28 112/66 (81) 100 Nasal Cannula 2.00 07/09/18 18:00 92 13 117/66 (83) 100 Nasal Cannula 2.00 07/09/18 17:00 93 14 121/68 (85) 100 Nasal Cannula 2.00 07/09/18 16:21 97.5 Nasal Cannula 2.00 07/09/18 16:15 Nasal Cannula 2.00 07/09/18 16:00 88 12 114/82 (93) 100 Nasal Cannula 2.00 07/09/18 15:00 92 12 122/67 (85) 92 Vapotherm 40.00 07/09/18 14:16 96 Room Air 07/09/18 14:00 85 13 126/80 (95) 100 Vapotherm 40.00 07/09/18 13:00 90 07/09/18 13:00 96 9 138/75 (96) 94 Vapotherm 40.00 07/09/18 12:00 91 8 104/70 (81) 100 Vapotherm 40.00 07/09/18 12:00 Nasal Cannula 2.00 07/09/18 11:00 96 29 126/62 (83) 97 Vapotherm 40.00 07/09/18 10:00 87 11 132/77 (95) 93 Vapotherm 40.00 07/09/18 09:46 100 Vapotherm 10.00 100 07/09/18 09:00 97.0 Vapotherm 40.00 07/09/18 09:00 93 21 138/75 (96) 94 Vapotherm 40.00 07/09/18 08:38 Nasal Cannula 2.00 07/09/18 08:00 79 10 121/61 (81) 100 Nasal Cannula 2.00 07/09/18 07:00 69 07/09/18 07:00 69 13 123/62 (82) 100 Nasal Cannula 2.00 07/09/18 06:50 92 Nasal Cannula 2.00 07/09/18 06:45 65 12 111/57 (75) 94 Nasal Cannula 2.00 07/09/18 06:30 64 11 104/64 (77) 95 Nasal Cannula 2.00 07/09/18 06:15 63 12 112/62 (79) 100 Nasal Cannula 2.00 07/09/18 06:02 97.0 07/09/18 06:00 64 12 109/62 (78) 100 Nasal Cannula 2.00 07/09/18 05:45 62 11 105/63 (77) 99 Nasal Cannula 2.00 07/09/18 05:30 65 14 93/59 (70) 100 Nasal Cannula 2.00 07/09/18 05:28 65 94 I & O 07/10/18 07:00 Intake Total 5580.0 ml Output Total 5700 ml Balance -120.0 ml Height & Weight Height: 5'11.00" Weight: 180lbs. 6.0oz. 81.949613nj; 25.2 BMI Method:Estimated General Appearance: No Apparent Distress, WD/WN, Other (lethargic) HEENT: PERRL/EOMI, Normal ENT Inspection Neck: Normal Inspection Respiratory: Accessory Muscle Use, Crackles, Decreased Breath Sounds, Respiratory Distress, Rhonci Cardiovascular: Regular Rate, Rhythm, No Edema, No Gallop Capillary Refill: Less Than 3 Seconds Extremity: Normal Inspection, No Pedal Edema Neurologic/Psychiatric: Alert, Disoriented, Other (weak) Results Lab Laboratory Tests 07/09/18 01:40 07/09/18 09:49 07/09/18 19:13 07/10/18 03:25 Assessment/Plan Assessment/Plan Pneumonia with hypoxia - D/C Zosyn, Vanco-- No leukocytosis or fever since admission -Pt was recently in hospital at [facility] -Villafuerte cultures neg thus far -Urine strep, legionella ag -oxygen Right pleural effusion secondary to congestion -Hep lock IVF - Confusion/dementia Alcohol dependance -Alcohol withdrawal protocol -- pt has only received 1mg of Ativan through the night. DVT/GI ppx -SCDs -protonix -Lovenox RN states patient just wants to go home and drink alcohol. Will consult hospice for education. Transfer to floor. PT is ok from pulmonary standpoint for discharge without Abx. NEREYDA DUMONT DO Jul 10, 2018 05:25
[2018-07-10] MEDS ORDERED: KCL 20 MEQ TAB (K-DUR) PO SCH (06:00)
[2018-07-10] MEDS ORDERED: MAGNESIUM 1 GM/100 ML IVPB 100 ML IV SCH (06:00)
[2018-07-10] MEDS ORDERED: POTASSIUM CL 10MEQ/50ML IVPB 50 ML IV SCH (06:00)
[2018-07-10] MEDS: CATHETER FLUSH 10 ML SYR IV SCH ×3 (06:30→23:54)
--- NOTE | 2018-07-10 07:37 | Diagnostic Imaging Report ---
INDICATION: Pneumonia, hypoxemia Portable chest 3:17 AM There is a right pleural effusion. There may be some infiltrate in the right lung. Left lung is clear. Impression: Right pleural effusion with questionable infiltrate. No change from previous day. Dictated by: Dictated on workstation # [id number]
--- NOTE | 2018-07-10 07:53 | Progress Note (SOAP) ---
Subjective Time Seen by a Provider: 07:51 Subjective/Events-last exam Patient doing better today. Patient on room area. Patient be transferred to medical floor. We'll probably discharge tomorrow Focused Exam Lactate Level 07/09/18 01:50: Lactic Acid Level 1.00 Time of Focused Exam: 11:11 Objective Exam Vital Signs Date Time Temp Pulse Resp B/P (MAP) Pulse Ox O2 Delivery O2 Flow Rate FiO2 07/10/18 06:00 111 127/105 (112) Nasal Cannula 2.00 07/10/18 05:00 89 26 131/84 (100) Nasal Cannula 2.00 07/10/18 04:00 Nasal Cannula 2.00 07/10/18 04:00 89 29 132/77 (95) Nasal Cannula 2.00 07/10/18 03:00 81 15 136/75 (95) Nasal Cannula 2.00 07/10/18 02:00 96 13 135/79 (97) Nasal Cannula 2.00 07/10/18 01:00 90 07/10/18 01:00 90 13 102/66 (78) Nasal Cannula 2.00 07/10/18 00:10 97.6 07/10/18 00:00 86 18 111/57 (75) Nasal Cannula 2.00 07/10/18 00:00 Nasal Cannula 2.00 07/09/18 23:00 84 17 112/72 (85) 99 Nasal Cannula 2.00 07/09/18 22:19 100 Nasal Cannula 2.50 07/09/18 22:00 81 10 121/89 (100) 100 Nasal Cannula 2.00 07/09/18 21:00 84 15 107/65 (79) 100 Nasal Cannula 2.00 07/09/18 20:51 97.8 07/09/18 20:00 86 18 115/71 (86) 100 Nasal Cannula 2.00 07/09/18 20:00 Nasal Cannula 2.00 07/09/18 19:00 91 07/09/18 19:00 91 28 112/66 (81) 100 Nasal Cannula 2.00 07/09/18 18:00 92 13 117/66 (83) 100 Nasal Cannula 2.00 07/09/18 17:00 93 14 121/68 (85) 100 Nasal Cannula 2.00 07/09/18 16:21 97.5 Nasal Cannula 2.00 07/09/18 16:15 Nasal Cannula 2.00 07/09/18 16:00 88 12 114/82 (93) 100 Nasal Cannula 2.00 07/09/18 15:00 92 12 122/67 (85) 92 Vapotherm 40.00 07/09/18 14:16 96 Room Air 07/09/18 14:00 85 13 126/80 (95) 100 Vapotherm 40.00 07/09/18 13:00 90 07/09/18 13:00 96 9 138/75 (96) 94 Vapotherm 40.00 07/09/18 12:00 91 8 104/70 (81) 100 Vapotherm 40.00 07/09/18 12:00 Nasal Cannula 2.00 07/09/18 11:00 96 29 126/62 (83) 97 Vapotherm 40.00 07/09/18 10:00 87 11 132/77 (95) 93 Vapotherm 40.00 07/09/18 09:46 100 Vapotherm 10.00 100 07/09/18 09:00 97.0 Vapotherm 40.00 07/09/18 09:00 93 21 138/75 (96) 94 Vapotherm 40.00 07/09/18 08:38 Nasal Cannula 2.00 07/09/18 08:00 79 10 121/61 (81) 100 Nasal Cannula 2.00 I & O 07/10/18 07:00 Intake Total 5830.0 ml Output Total 5925 ml Balance -95.0 ml Capillary Refill : Less Than 3 SecondsLess Than 3 Seconds General Appearance: No Apparent Distress, Thin HEENT: Normal ENT Inspection Neck: Normal Inspection Respiratory: No Accessory Muscle Use, No Respiratory Distress, Decreased Breath Sounds Cardiovascular: No Murmur Gastrointestinal: non tender, soft Results Lab Laboratory Tests 07/09/18 09:49 07/09/18 19:13 07/10/18 03:25 Laboratory Tests 07/09/18 09:26: Blood Gas Puncture Site RT RAD, Blood Gas Patient Temperature 96.9, Arterial Blood pH 7.33*L, Arterial Blood Partial Pressure CO2 47H, Arterial Blood Partial Pressure O2 280H, Arterial Blood HCO3 25, Arterial Blood Total CO2 26.1 , Arterial Blood Oxygen Saturation 100, Arterial Blood Base Excess -0.8, Brian Test YES-POS, Blood Gas Ventilator Setting NO, Blood Gas Inspired Oxygen 15 07/09/18 09:49: Sodium Level 140, Potassium Level 3.4L, Chloride Level 108H, Carbon Dioxide Level 25, Anion Gap 7, Blood Urea Nitrogen 9, Creatinine 0.71, Estimat Glomerular Filtration Rate > 60, BUN/Creatinine Ratio 13, Glucose Level 125H, Calcium Level 8.2L, Phosphorus Level 4.3, Magnesium Level 1.0*L, Troponin I < 0.30, B-Type Natriuretic Peptide 123.9H 07/09/18 18:09: Glucometer 239H 07/09/18 19:13: Sodium Level 137, Potassium Level 4.1, Chloride Level 102, Carbon Dioxide Level 26, Anion Gap 9, Blood Urea Nitrogen 7, Creatinine 0.70, Estimat Glomerular Filtration Rate > 60, BUN/Creatinine Ratio 10, Glucose Level 196H, Calcium Level 8.9, Phosphorus Level 3.9, Magnesium Level 1.7L 07/10/18 03:25: White Blood Count 6.4, Red Blood Count 3.43L, Hemoglobin 11.1L, Hematocrit 34L, Mean Corpuscular Volume 99, Mean Corpuscular Hemoglobin 32, Mean Corpuscular Hemoglobin Concent 33, Red Cell Distribution Width 16.6H, Platelet Count 355, Mean Platelet Volume 10.1, Neutrophils (%) (Auto) 90H, Lymphocytes (%) (Auto) 9L , Monocytes (%) (Auto) 1, Eosinophils (%) (Auto) 0, Basophils (%) (Auto) 0, Neutrophils # (Auto) 5.8, Lymphocytes # (Auto) 0.6L, Monocytes # (Auto) 0.1, Eosinophils # (Auto) 0.0, Basophils # (Auto) 0.0, Neutrophils % (Manual) 92, Lymphocytes % (Manual) 4, Monocytes % (Manual) 4, Eosinophils % (Manual) 0, Basophils % (Manual) 0, Band Neutrophils 0, Hypochromasia SLIGHT, Anisocytosis SLIGHT, Target Cells SLIGHT, Prothrombin Time 13.1, INR Comment 1.0, Sodium Level 138, Potassium Level 3.7, Chloride Level 103, Carbon Dioxide Level 24, Anion Gap 11, Blood Urea Nitrogen 7, Creatinine 0.65, Estimat Glomerular Filtration Rate > 60, BUN/Creatinine Ratio 11, Glucose Level 199H, Calcium Level 8.8, Phosphorus Level 3.3, Magnesium Level 1.4L Microbiology 07/09/18 Blood Culture - Preliminary, Resulted No growth 07/09/18 Influenza Types A,B Antigen (YOSSI) - Final, Complete Assessment/Plan Assessment/Plan Assess & Plan/Chief Complaint Pneumonia with hypoxia. Right pleural effusion. Weakness. Hypotension. DO NOT RESUSCITATE. Mental status change. History of atrial fibrillation Clinical Quality Measures Admission Status Admission Dx Unwitnessed fall. Hypotension. Lethargy. Acute mental status change. Pneumonia. DO NOT RESUSCITATE. Hypoxia. History of atrial fibrillation DVT/VTE Risk/Contraindication: Risk Factor Score Per Nursin RFS Level Per Nursing on Admit: 4+=Very High MACHO PITT DO Jul 10, 2018 07:53
[2018-07-10] MEDS: ENOXAPARIN 40 MG/0.4 ML (LOVENOX) SYR SC SCH (08:46)
[2018-07-10] MEDS ORDERED: RT-ALBUTEROL/IPRATROPIUM 3 ML (DUONEB) VIAL INH PRN (09:00)
[2018-07-10] MEDS ORDERED: THIAMINE INJECTION 100 MG, FOLIC ACID INJECTION 1 MG, MAGNESIUM SULFATE 2 GM, VITAMIN M... IV SCH ×5 (09:00)
--- NOTE | 2018-07-10 09:14 | ST Dysphagia Evaluation ---
Speech Evaluation-General Medical Diagnosis Altered Mental Status Onset Date: Jul 09, 2018 Therapy Diagnosis Therapy Diagnosis: Oral Pharyngeal Dysphagia Precautions Precautions: Fall, Aspiration Precautions/Isolations: Standard Precautions Referral Referring Physician: Dr. Field Medical History HTN, Hypotension, Cardiac issues, Hypoxia Current History Hypertension, Dysphagia Reviewed History: Yes Social History Home: Long Term Speech PLF/Current-Dysphagia Prior Level of Function Patient was admitted from the residential due to hypertension. He was receiving skilled ST at the residential for dysphagia and cognitive- communication deficits. Subjective Patient alert, cooperative however he exhibited moderate confusion. Oral Motor Skills Dentition: Natural Ability to Follow Directions: Fair Oral Expression Ability: Moderate Impairment (Patient is able to speak, however content is irrelavent and inappropriate.) Face Facial Symmetry: Symmetrical Oral-Facial Assessment Oral-Facial Dentition: Normal Dysphagia Evaluation Consistencies Presented: Thin Liquid, Mechanical Soft, Between Thick Liquid, Honey Thick Liquid, Pureed Pharyngeal Phase: Clears Throat Funct. Velo/Pharyngeal Symptom: Cough After Swallow Dietary Recommendations: Mechanical Soft Liquid Recommendations: Honey Consistancy Swallowing Precautions: Alternate Liquids/Solids, Decreased Bolus 1/2 Tsp, Decreased Rate of Oral Intake, Liquids from Cup, Small Bites and Sips, Sitting 90 Degrees 30 Post Intake Patient was on a mechanical soft diet with regular thin liquids while in the residential. Upon hospital admit he was NPO due to excessive secretions in his oral pharyngeal area. Dysphagia Evaluation Summary Patient was alert and cooperative with dysphagia evaluation. He was presented with 1/2 tsp of thin liquids x2 with cough noted post swallow. Honey consistency liquid presented of 1/2 tsp and small sips x2 from a cup with no coughing noted post swallow. Puree consistency was presented with tsp. without difficulty. Mechanical soft consistency was presented with tsp. without difficulty. Swallow function/initiation is within functional limits. Patient was put on Dysphagia Level 2 and honey consistency liquids with his nurse, Sharmaine's verbal agreement. Barriers to Learning Patient has decreased cognition. Speech Short Term Goals Short Term Goals Short Term Goals Patient will tolerate modified diet of Dysphagia Level 2 without s/s of aspiration with 90% meals consumed. Patient will follow through with verbal/visual compensatory strategy training at 80% Speech [employer] Goals Alf Goals Patient will maintain adequate nutrition/hydration with effective swallow function. Speech-Plan Patient/Family Goals Patient/Family Goals: Patient wants to have a regular diet with thin liquids and return to the residential. Treatment Plan Speech Therapy Treatment Plan: Continue Plan of Care Patient is recommended for skilled ST services to focus on dysphagia and safety of oral intake. Frequency: 2 times per week Estimated Hrs Per Day: .5 hour per day Rehab Potential: Guarded Barriers to Learning: Patient has decreased cognition. Pt/Family Agrees to Plan: Yes Safety Risks/Education Teaching Recipient: Patient Teaching Methods: Discussion Response to Teaching: Verbalize Understanding Time Speech Therapy Time In: 08:30 Speech Therapy Time Out: 08:45 Total Billed Time: 15 Billed Treatment Time 1AYLA BETHAN[address] ST Jul 10, 2018 09:14
[2018-07-10] MEDS: RT-ALBUTEROL SULF 2.5 MG/3 ML PRE-MIX VIAL INH SCH (10:39)
[2018-07-10] MEDS: RT-ALBUTEROL/IPRATROPIUM 3 ML (DUONEB) VIAL INH SCH ×2 (14:51→21:11)
[2018-07-10] MEDS ORDERED: TROUGH ORDER-PHARMACY XX NR (19:00)
[2018-07-11] MEDS: LORazepam INJ 2 MG/ML (ATIVAN) VIAL IM/IV PRN ×2 (00:52→01:54)
[2018-07-11] MEDS: RT-ALBUTEROL/IPRATROPIUM 3 ML (DUONEB) VIAL INH SCH ×4 (04:14→20:13)
[2018-07-11 04:46] LABS: BASOPHILS % (AUTO) 0 % (0-10); EOSINOPHILS # (AUTO) 0.1 10^3/uL (0.0-0.3); EOSINOPHILS % (AUTO) 1 % (0-10); HEMATOCRIT 32 % (40-54); HEMOGLOBIN 10.5 G/DL (13.3-17.7); LYMPHOCYTES # (AUTO) 1.8 X 10^3 (1.0-4.0); LYMPHOCYTES % (AUTO) 21 % (12-44); MEAN CORPUSCULAR HEMOGLOBIN 33 PG (25-34); MEAN CORPUSCULAR HGB CONC 33 G/DL (32-36); MEAN CORPUSCULAR VOLUME 100 FL (80-99); MEAN PLATELET VOLUME 10.4 FL (7.4-10.4); MONOCYTES # (AUTO) 0.6 X 10^3 (0.0-1.0); MONOCYTES % (AUTO) 7 % (0-12); NEUTROPHILS # (AUTO) 6.3 X 10^3 (1.8-7.8); NEUTROPHILS % (AUTO) 71 % (42-75); PLATELET COUNT 362 10^3/uL (130-400); RED CELL DISTRIBUTION WIDTH 16.7 % (10.0-14.5); WHITE BLOOD COUNT 8.8 10^3/uL (4.3-11.0)
[2018-07-11 05:10] LABS: ALANINE AMINOTRANSFERASE 13 U/L (0-55); ALKALINE PHOSPHATASE 112 U/L (40-136); BILIRUBIN,TOTAL 0.4 MG/DL (0.1-1.0); BUN/CREATININE RATIO 12; CALCIUM 9.2 MG/DL (8.5-10.1); CARBON DIOXIDE 26 MMOL/L (21-32); CHLORIDE 103 MMOL/L (98-107); GFR ESTIMATED > 60; GLUCOSE 139 MG/DL (70-105); MAGNESIUM 1.4 MG/DL (1.8-2.4); PHOSPHORUS 2.1 MG/DL (2.3-4.7); POTASSIUM 3.4 MMOL/L (3.6-5.0); SODIUM 138 MMOL/L (135-145); TOTAL PROTEIN 6.1 GM/DL (6.4-8.2)
[2018-07-11] MEDS: LORazepam INJ 2 MG/ML (ATIVAN) VIAL IV PRN ×2 (05:49→07:07)
[2018-07-11] MEDS: CATHETER FLUSH 10 ML SYR IV SCH ×3 (06:02→20:09)
[2018-07-11 06:23] LABS: PROTHROMBIN TIME PATIENT 13.3 SEC (12.2-14.7)
--- NOTE | 2018-07-11 06:43 | Pulmonary Progress Note ---
Sepsis Event Evaluation Height, Weight, BMI Height: 5'11.00" Weight: 179lbs. 9.0oz. 81.501785rk; 25.2 BMI Method:Estimated Focused Exam Lactate Level 07/09/18 01:50: Lactic Acid Level 1.00 Time of Focused Exam: 11:11 Exam Exam Vital Signs Date Time Temp Pulse Resp B/P (MAP) Pulse Ox O2 Delivery O2 Flow Rate FiO2 07/10/18 21:11 94 Room Air 07/10/18 21:00 Room Air 07/10/18 20:00 97.8 82 17 105/62 (76) 98 Room Air 07/10/18 16:00 98.0 70 17 118/69 (85) 98 Room Air 07/10/18 14:51 92 Room Air 07/10/18 12:00 97.8 132 18 134/78 (96) 90 Nasal Cannula 2.00 07/10/18 12:00 Room Air 07/10/18 08:00 97.7 108 132/76 (94) 90 Nasal Cannula 2.00 07/10/18 08:00 Room Air 07/10/18 07:00 129 122/88 (99) Nasal Cannula 2.00 I & O 07/11/18 07:00 Intake Total 960 ml Output Total 200 ml Balance 760 ml Height & Weight Height: 5'11.00" Weight: 179lbs. 9.0oz. 81.891759za; 25.2 BMI Method:Estimated General Appearance: No Apparent Distress, Thin HEENT: Normal ENT Inspection Neck: Normal Inspection Respiratory: No Accessory Muscle Use, No Respiratory Distress, Decreased Breath Sounds Cardiovascular: No Murmur Capillary Refill: Less Than 3 Seconds Gastrointestinal: non tender, soft Extremity: Normal Inspection, No Pedal Edema Neurologic/Psychiatric: Alert, Disoriented, Other (weak) Results Lab Laboratory Tests 07/09/18 09:49 07/09/18 19:13 07/10/18 03:25 07/11/18 04:05 Assessment/Plan Assessment/Plan Pneumonia with hypoxia - D/C Zosyn, Vanco-- No leukocytosis or fever since admission -Vill[place]te cultures neg thus far -Urine strep, legionella ag -oxygen Right pleural effusion secondary to congestion -Hep lock IVF Confusion/dementia Alcohol dependance -Alcohol withdrawal protocol . DVT/GI ppx -SCDs -protonix -Lovenox PT is ok from pulmonary standpoint for discharge without Abx. NEREYDA DUMONT DO Jul 11, 2018 06:43
--- NOTE | 2018-07-11 07:27 | Diagnostic Imaging Report ---
INDICATION: Pneumonia. FINDINGS: There is cardiomegaly. Mediastinum is unremarkable. There are some right basilar atelectasis and/or pneumonitis with a small right pleural effusion. Left lung is clear. There is no pneumothorax. IMPRESSION: Minimal right basilar atelectasis and/or pneumonitis and small right pleural effusion. Cardiomegaly. Dictated by: Dictated on workstation # [id number]
--- NOTE | 2018-07-11 07:34 | Progress Note (SOAP) ---
Subjective Time Seen by a Provider: 07:32 Subjective/Events-last exam Patient doing better this morning. Patient having no problems breathing. Plan to discharge today Focused Exam Lactate Level 07/09/18 01:50: Lactic Acid Level 1.00 Time of Focused Exam: 11:11 Objective Exam Vital Signs Date Time Temp Pulse Resp B/P (MAP) Pulse Ox O2 Delivery O2 Flow Rate FiO2 07/10/18 21:11 94 Room Air 07/10/18 21:00 Room Air 07/10/18 20:00 97.8 82 17 105/62 (76) 98 Room Air 07/10/18 16:00 98.0 70 17 118/69 (85) 98 Room Air 07/10/18 14:51 92 Room Air 07/10/18 12:00 97.8 132 18 134/78 (96) 90 Nasal Cannula 2.00 07/10/18 12:00 Room Air 07/10/18 08:00 97.7 108 132/76 (94) 90 Nasal Cannula 2.00 07/10/18 08:00 Room Air I & O 07/11/18 07:00 Intake Total 960 ml Output Total 200 ml Balance 760 ml Capillary Refill : Less Than 3 SecondsLess Than 3 Seconds General Appearance: No Apparent Distress, WD/WN HEENT: Normal ENT Inspection Neck: Full Range of Motion, Normal Inspection Respiratory: Lungs Clear, No Accessory Muscle Use, No Respiratory Distress, Decreased Breath Sounds Cardiovascular: Regular Rate, Rhythm, No Murmur Gastrointestinal: non tender, soft Results Lab Laboratory Tests 07/11/18 04:05 Laboratory Tests 07/10/18 09:30: Troponin I < 0.30 07/10/18 11:09: Glucometer 230H 07/10/18 18:08: Glucometer 202H 07/10/18 23:55: Glucometer 163H 07/11/18 04:05: White Blood Count 8.8, Red Blood Count 3.20L, Hemoglobin 10.5L, Hematocrit 32L, Mean Corpuscular Volume 100H, Mean Corpuscular Hemoglobin 33, Mean Corpuscular Hemoglobin Concent 33, Red Cell Distribution Width 16.7H, Platelet Count 362, Mean Platelet Volume 10.4, Neutrophils (%) (Auto) 71, Lymphocytes (%) (Auto) 21 , Monocytes (%) (Auto) 7, Eosinophils (%) (Auto) 1, Basophils (%) (Auto) 0, Neutrophils # (Auto) 6.3, Lymphocytes # (Auto) 1.8, Monocytes # (Auto) 0.6, Eosinophils # (Auto) 0.1, Basophils # (Auto) 0.0, Sodium Level 138, Potassium Level 3.4L, Chloride Level 103, Carbon Dioxide Level 26, Anion Gap 9, Blood Urea Nitrogen 7, Creatinine 0.60, Estimat Glomerular Filtration Rate > 60, BUN/ Creatinine Ratio 12, Glucose Level 139H, Calcium Level 9.2, Corrected Calcium 10.0, Phosphorus Level 2.1L, Magnesium Level 1.4L, Total Bilirubin 0.4, Aspartate Amino Transf (AST/SGOT) 14, Alanine Aminotransferase (ALT/SGPT) 13, Alkaline Phosphatase 112, Total Protein 6.1L, Albumin 3.0L 07/11/18 05:20: Prothrombin Time 13.3, INR Comment 1.0 07/11/18 05:46: Glucometer 437*H 07/11/18 06:11: Glucometer 106 Microbiology 07/09/18 Blood Culture - Preliminary, Resulted No growth 07/09/18 MRSA Screen - Final, Complete MRSA not isolated 07/09/18 Urine Culture - Final, Complete NO GROWTH Assessment/Plan Assessment/Plan Assess & Plan/Chief Complaint Pneumonia with hypoxia. Right pleural effusion. Weakness. Hypotension. DO NOT RESUSCITATE. Mental status change. History of atrial fibrillation. . Pneumonia with hypoxia. Right pleural effusion. Weakness. Hypertension. DO NOT RESUSCITATE. Mental status change. History of atrial fibrillation. Patient doing better. Spoke to pulmonology and okay with pulmonology for discharge today. Clinical Quality Measures Admission Status Admission Dx Unwitnessed fall. Hypotension. Lethargy. Acute mental status change. Pneumonia. DO NOT RESUSCITATE. Hypoxia. History of atrial fibrillation DVT/VTE Risk/Contraindication: Risk Factor Score Per Nursin RFS Level Per Nursing on Admit: 4+=Very High MACHO PITT DO Jul 11, 2018 07:33
--- NOTE | 2018-07-11 07:37 | Discharge Inst-Skilled Nursing ---
Discharge Inst-Skilled NF Consult/Follow Up/Orders Follow Up Appt.: Stay Skilled NF Admit to: [facility] Certification (SNF) I certify that SNF services are required to be given on an inpatient basis because of the above named patient's need for fpc care on a continuing basis for the conditions(s) for which he/she was receiving inpatient hospital services prior to his/her transfer to the SNF. [facility] Facility Order: Nursing Services, Physical Therapy-Evaluate & Treat Discharge Diet: Other Diet (Diet the same before leaving fpc. Hospital) Daily Activity as Tolerated: Yes New & Resume Previous Orders Sigifredo Pitt Jul 11, 2018 07:36 SIGIFREDO PITT DO Jul 11, 2018 07:37
[2018-07-11 08:00] VITALS: BP 190/72
[2018-07-11] MEDS: ENOXAPARIN 40 MG/0.4 ML (LOVENOX) SYR SC SCH (08:18)
[2018-07-11] MEDS: MAGNESIUM 1 GM/100 ML IVPB 100 ML IV SCH ×2 (08:46→08:52)
[2018-07-11 08:52] VITALS: BP 135/72
[2018-07-11 12:00] VITALS: BP 149/71
--- NOTE | 2018-07-11 14:35 | Speech Therapy Daily Note ---
Speech Daily Progress Note Subjective Date Seen by Provider: Jul 11, 2018 Time Seen by Provider: 12:30 Patient was confused and required frequent redirection. Objective Patient was seen for dysphagia therapy for lunch. Patient was able to consume 90 % of his modified meal with moderate visual and/or verbal cues. No s/s of aspiration noted. Treatment Plan Continue Plan of Care Speech Short Term Goals Short Term Goals Short Term Goals Patient will tolerate modified diet of Dysphagia Level 2 without s/s of aspiration with 90% meals consumed. Patient will follow through with verbal/visual compensatory strategy training at 80% Speech Longterm Goals Longterm Goals Patient will maintain adequate nutrition/hydration with effective swallow function. Speech-Plan Patient/Family Goals Patient/Family Goals: [facility] Treatment Plan Speech Therapy Treatment Plan: Continue Plan of Care [facility] will [facility] jail upon discharge. Frequency: 2 times per week Estimated Hrs Per Day: .5 hour per day Rehab Potential: Guarded Barriers to Learning: Patient's cognitive deficits. Pt/Family Agrees to Plan: Yes Safety Risks/Education Teaching Recipient: Patient Teaching Methods: Discussion Response to Teaching: Verbalize Understanding, Reinforcement Needed Time Speech Therapy Time In: 12:30 Speech Therapy Time Out: 13:05 Total Billed Time: 35 Billed Treatment Time 1, DYST DEE DEE Herman Jul 11, 2018 14:35
[2018-07-11 16:29] VITALS: BP 138/71
[2018-07-11 19:40] VITALS: BP 136/78
--- NOTE | 2018-07-14 07:39 | Discharge Summary ---
Diagnosis/Chief Complaint Date of Admission Jul 09, 2018 at 03:27 Date of Discharge Jul 11, 2018 at 22:00 Discharge Date: Jul 11, 2018 Discharge Time: 07:37 Discharge Diagnosis Unwitnessed fall. Pneumonia with hypoxia. Hypotension. Dehydration. Anemia. Dementia. Hypomagnesemia. Right pleural effusion. Cholelithiasis. Diverticulosis. Acute mental status change. DO NOT RESUSCITATE. History of atrial fib Reason Hospital Visit Patient recent resident of [facility] and [facility]. Patient had an unwitnessed fall. Patient's blood pressure 50/30, lethargic and low pulse ox. Patient recently and [facility] for pneumonia. Patient in acute mental status change and slurred speech. Patient transferred to emergency room area Chest x-ray shows opacified right lung base concerning for infiltrate or atelectasis and right pleural effusion. Patient has are moist and difficult to understand. Patient admitted to ICU Discharge Summary Consultations Pulmonology Discharge Physical Examination Allergies: Coded Allergies: No Known Drug Allergies (Unverified , 10/25/17) Vitals & I&Os Vital Signs Date Time Temp Pulse Resp B/P (MAP) Pulse Ox O2 Delivery O2 Flow Rate FiO2 07/11/18 21:00 Room Air 07/11/18 20:13 95 07/11/18 19:40 97.4 76 18 136/78 (97) 07/10/18 12:00 2.00 07/09/18 09:46 100 Hospital Course Patient did improve. Patient sent back to [facility] Labs (last 24 hrs) Laboratory Tests 07/09/18 01:40: White Blood Count 10.3, Red Blood Count 3.14L, Hemoglobin 10.5L, Hematocrit 32L , Mean Corpuscular Volume 101H, Mean Corpuscular Hemoglobin 33, Mean Corpuscular Hemoglobin Concent 33, Red Cell Distribution Width 17.6H, Platelet Count 365, Mean Platelet Volume 9.8, Neutrophils (%) (Auto) 65, Lymphocytes (%) (Auto) 23, Monocytes (%) (Auto) 9, Eosinophils (%) (Auto) 2, Basophils (%) (Auto ) 1, Neutrophils # (Auto) 6.7, Lymphocytes # (Auto) 2.4, Monocytes # (Auto) 1.0 , Eosinophils # (Auto) 0.2, Basophils # (Auto) 0.1, Prothrombin Time 13.3, INR Comment 1.0, Activated Partial Thromboplast Time 35, Sodium Level 137, Potassium Level 4.4, Chloride Level 103, Carbon Dioxide Level 25, Anion Gap 9, Blood Urea Nitrogen 12, Creatinine 0.90, Estimat Glomerular Filtration Rate > 60 , BUN/Creatinine Ratio 13, Glucose Level 106H, Calcium Level 8.9, Corrected Calcium 10.0, Total Bilirubin 0.4, Aspartate Amino Transf (AST/SGOT) 15, Alanine Aminotransferase (ALT/SGPT) 11, Alkaline Phosphatase 123, B-Type Natriuretic Peptide 83.2, Total Protein 5.6L, Albumin 2.6L 07/09/18 01:50: Lactic Acid Level 1.00, Digoxin Level 0.69L 07/09/18 02:20: Urine Color YELLOW, Urine Clarity CLEAR, Urine pH 5, Urine Specific [place] 1.015L, Urine Protein NEGATIVE, Urine Glucose (UA) NEGATIVE, Urine Ketones NEGATIVE, Urine Nitrite NEGATIVE, Urine Bilirubin NEGATIVE, Urine Urobilinogen NORMAL, Urine Leukocyte Esterase 1+H, Urine RBC (Auto) NEGATIVE, Urine RBC RARE , Urine WBC RARE, Urine Squamous Epithelial Cells RARE, Urine Crystals NONE, Urine Bacteria TRACE, Urine Casts PRESENT, Urine Hyaline Casts 2-5H, Urine Mucus MODERATEH, Urine Culture Indicated NO, Urine Legionella pneumophilia Ag Negative, Streptococcus pneumoniae Antigen Negative 07/09/18 03:27: Lab Scanned Report Referred Lab Report 07/09/18 06:00: Blood Gas Puncture Site L RAD, Blood Gas Patient Temperature 97.0, Arterial Blood pH 7.34*L, Arterial Blood Partial Pressure CO2 49H, Arterial Blood Partial Pressure O2 46L, Arterial Blood HCO3 26, Arterial Blood Total CO2 27.8, Arterial Blood Oxygen Saturation 79L, Arterial Blood Base Excess 0.9, Brian Test YES-POS, Blood Gas Ventilator Setting NO, Blood Gas Inspired Oxygen 2L, Glucometer 107 07/09/18 09:26: Blood Gas Puncture Site RT RAD, Blood Gas Patient Temperature 96.9, Arterial Blood pH 7.33*L, Arterial Blood Partial Pressure CO2 47H, Arterial Blood Partial Pressure O2 280H, Arterial Blood HCO3 25, Arterial Blood Total CO2 26.1 , Arterial Blood Oxygen Saturation 100, Arterial Blood Base Excess -0.8, Brian Test YES-POS, Blood Gas Ventilator Setting NO, Blood Gas Inspired Oxygen 15 07/09/18 09:49: Sodium Level 140, Potassium Level 3.4L, Chloride Level 108H, Carbon Dioxide Level 25, Anion Gap 7, Blood Urea Nitrogen 9, Creatinine 0.71, Estimat Glomerular Filtration Rate > 60, BUN/Creatinine Ratio 13, Glucose Level 125H, Calcium Level 8.2L, Phosphorus Level 4.3, Magnesium Level 1.0*L, Troponin I < 0.30, B-Type Natriuretic Peptide 123.9H 07/09/18 18:09: Glucometer 239H 07/09/18 19:13: Sodium Level 137, Potassium Level 4.1, Chloride Level 102, Carbon Dioxide Level 26, Anion Gap 9, Blood Urea Nitrogen 7, Creatinine 0.70, Estimat Glomerular Filtration Rate > 60, BUN/Creatinine Ratio 10, Glucose Level 196H, Calcium Level 8.9, Phosphorus Level 3.9, Magnesium Level 1.7L 07/10/18 03:25: Sodium Level 138, Potassium Level 3.7, Chloride Level 103, Carbon Dioxide Level 24, Anion Gap 11, Blood Urea Nitrogen 7, Creatinine 0.65, Estimat Glomerular Filtration Rate > 60, BUN/Creatinine Ratio 11, Glucose Level 199H, Calcium Level 8.8, Phosphorus Level 3.3, Magnesium Level 1.4L, White Blood Count 6.4, Red Blood Count 3.43L, Hemoglobin 11.1L, Hematocrit 34L, Mean Corpuscular Volume 99, Mean Corpuscular Hemoglobin 32, Mean Corpuscular Hemoglobin Concent 33, Red Cell Distribution Width 16.6H, Platelet Count 355, Mean Platelet Volume 10.1, Neutrophils (%) (Auto) 90H, Lymphocytes (%) (Auto) 9L, Monocytes (%) (Auto ) 1, Eosinophils (%) (Auto) 0, Basophils (%) (Auto) 0, Neutrophils # (Auto) 5.8 , Lymphocytes # (Auto) 0.6L, Monocytes # (Auto) 0.1, Eosinophils # (Auto) 0.0, Basophils # (Auto) 0.0, Neutrophils % (Manual) 92, Lymphocytes % (Manual) 4, Monocytes % (Manual) 4, Eosinophils % (Manual) 0, Basophils % (Manual) 0, Band Neutrophils 0, Hypochromasia SLIGHT, Anisocytosis SLIGHT, Target Cells SLIGHT, Prothrombin Time 13.1, INR Comment 1.0 07/10/18 09:30: Troponin I < 0.30 07/10/18 11:09: Glucometer 230H 07/10/18 18:08: Glucometer 202H 07/10/18 23:55: Glucometer 163H 07/11/18 04:05: White Blood Count 8.8, Red Blood Count 3.20L, Hemoglobin 10.5L, Hematocrit 32L, Mean Corpuscular Volume 100H, Mean Corpuscular Hemoglobin 33, Mean Corpuscular Hemoglobin Concent 33, Red Cell Distribution Width 16.7H, Platelet Count 362, Mean Platelet Volume 10.4, Neutrophils (%) (Auto) 71, Lymphocytes (%) (Auto) 21 , Monocytes (%) (Auto) 7, Eosinophils (%) (Auto) 1, Basophils (%) (Auto) 0, Neutrophils # (Auto) 6.3, Lymphocytes # (Auto) 1.8, Monocytes # (Auto) 0.6, Eosinophils # (Auto) 0.1, Basophils # (Auto) 0.0, Sodium Level 138, Potassium Level 3.4L, Chloride Level 103, Carbon Dioxide Level 26, Anion Gap 9, Blood Urea Nitrogen 7, Creatinine 0.60, Estimat Glomerular Filtration Rate > 60, BUN/ Creatinine Ratio 12, Glucose Level 139H, Calcium Level 9.2, Corrected Calcium 10.0, Phosphorus Level 2.1L, Magnesium Level 1.4L, Total Bilirubin 0.4, Aspartate Amino Transf (AST/SGOT) 14, Alanine Aminotransferase (ALT/SGPT) 13, Alkaline Phosphatase 112, Total Protein 6.1L, Albumin 3.0L 07/11/18 05:20: Prothrombin Time 13.3, INR Comment 1.0 07/11/18 05:46: Glucometer 437*H 07/11/18 06:11: Glucometer 106 07/11/18 09:10: Troponin I < 0.30 07/11/18 13:51: Glucometer 198H 07/11/18 18:18: Glucometer 125H Microbiology 07/09/18 Blood Culture - Preliminary, Resulted No growth 07/09/18 MRSA Screen - Final, Complete MRSA not isolated 07/09/18 Urine Culture - Final, Complete NO GROWTH Laboratory Tests 07/09/18 01:40 07/09/18 09:49 07/09/18 19:13 07/10/18 03:25 07/11/18 04:05 Pending Labs Microbiology Date/Time Source Procedure Growth Status 07/09/18 02:04 Peripheral Rt Hand Blood Culture - Preliminary No growth Resulted 07/09/18 01:50 Peripheral Rt Forearm Blood Culture - Preliminary No growth Resulted 07/09/18 04:35 Nasal MRSA Screen - Final MRSA not isolated Complete 07/09/18 01:48 Nasopharynx Influenza Types A,B Antigen (YOSSI) - Final Complete 07/09/18 02:20 Urine Straight Cath, In/Out Urine Culture - Final NO GROWTH Complete Laboratory Tests 07/09/18 01:40: White Blood Count 10.3, Red Blood Count 3.14, Hemoglobin 10.5, Hematocrit 32, Mean Corpuscular Volume 101, Mean Corpuscular Hemoglobin 33, Mean Corpuscular Hemoglobin Concent 33, Red Cell Distribution Width 17.6, Platelet Count 365, Mean Platelet Volume 9.8, Neutrophils (%) (Auto) 65, Lymphocytes (%) (Auto) 23, Monocytes (%) (Auto) 9, Eosinophils (%) (Auto) 2, Basophils (%) (Auto) 1, Neutrophils # (Auto) 6.7, Lymphocytes # (Auto) 2.4, Monocytes # (Auto) 1.0, Eosinophils # (Auto) 0.2, Basophils # (Auto) 0.1, Prothrombin Time 13.3, INR Comment 1.0, Activated Partial Thromboplast Time 35, Sodium Level 137, Potassium Level 4.4, Chloride Level 103, Carbon Dioxide Level 25, Anion Gap 9, Blood Urea Nitrogen 12, Creatinine 0.90, Estimat Glomerular Filtration Rate > 60 , BUN/Creatinine Ratio 13, Glucose Level 106, Calcium Level 8.9, Corrected Calcium 10.0, Total Bilirubin 0.4, Aspartate Amino Transf (AST/SGOT) 15, Alanine Aminotransferase (ALT/SGPT) 11, Alkaline Phosphatase 123, B-Type Natriuretic Peptide 83.2, Total Protein 5.6, Albumin 2.6 07/09/18 01:50: Lactic Acid Level 1.00, Digoxin Level 0.69 07/09/18 02:20: Urine Color YELLOW, Urine Clarity CLEAR, Urine pH 5, Urine Specific [place] 1.015, Urine Protein NEGATIVE, Urine Glucose (UA) NEGATIVE, Urine Ketones NEGATIVE, Urine Nitrite NEGATIVE, Urine Bilirubin NEGATIVE, Urine Urobilinogen NORMAL, Urine Leukocyte Esterase 1+, Urine RBC (Auto) NEGATIVE, Urine RBC RARE, Urine WBC RARE, Urine Squamous Epithelial Cells RARE, Urine Crystals NONE, Urine Bacteria TRACE, Urine Casts PRESENT, Urine Hyaline Casts 2-5, Urine Mucus MODERATE, Urine Culture Indicated NO, Urine Legionella pneumophilia Ag Negative , Streptococcus pneumoniae Antigen Negative 07/09/18 03:27: Lab Scanned Report Referred Lab Report 07/09/18 06:00: Blood Gas Puncture Site L RAD, Blood Gas Patient Temperature 97.0, Arterial Blood pH 7.34, Arterial Blood Partial Pressure CO2 49, Arterial Blood Partial Pressure O2 46, Arterial Blood HCO3 26, Arterial Blood Total CO2 27.8, Arterial Blood Oxygen Saturation 79, Arterial Blood Base Excess 0.9, Brian Test YES-POS, Blood Gas Ventilator Setting NO, Blood Gas Inspired Oxygen 2L, Glucometer 107 07/09/18 09:26: Blood Gas Puncture Site RT RAD, Blood Gas Patient Temperature 96.9, Arterial Blood pH 7.33, Arterial Blood Partial Pressure CO2 47, Arterial Blood Partial Pressure O2 280, Arterial Blood HCO3 25, Arterial Blood Total CO2 26.1, Arterial Blood Oxygen Saturation 100, Arterial Blood Base Excess -0.8, Brian Test YES-POS, Blood Gas Ventilator Setting NO, Blood Gas Inspired Oxygen 15 07/09/18 09:49: Sodium Level 140, Potassium Level 3.4, Chloride Level 108, Carbon Dioxide Level 25, Anion Gap 7, Blood Urea Nitrogen 9, Creatinine 0.71, Estimat Glomerular Filtration Rate > 60, BUN/Creatinine Ratio 13, Glucose Level 125, Calcium Level 8.2, Phosphorus Level 4.3, Magnesium Level 1.0, Troponin I < 0.30, B-Type Natriuretic Peptide 123.9 07/09/18 18:09: Glucometer 239 07/09/18 19:13: Sodium Level 137, Potassium Level 4.1, Chloride Level 102, Carbon Dioxide Level 26, Anion Gap 9, Blood Urea Nitrogen 7, Creatinine 0.70, Estimat Glomerular Filtration Rate > 60, BUN/Creatinine Ratio 10, Glucose Level 196, Calcium Level 8.9, Phosphorus Level 3.9, Magnesium Level 1.7 07/10/18 03:25: Sodium Level 138, Potassium Level 3.7, Chloride Level 103, Carbon Dioxide Level 24, Anion Gap 11, Blood Urea Nitrogen 7, Creatinine 0.65, Estimat Glomerular Filtration Rate > 60, BUN/Creatinine Ratio 11, Glucose Level 199, Calcium Level 8.8, Phosphorus Level 3.3, Magnesium Level 1.4, White Blood Count 6.4, Red Blood Count 3.43, Hemoglobin 11.1, Hematocrit 34, Mean Corpuscular Volume 99, Mean Corpuscular Hemoglobin 32, Mean Corpuscular Hemoglobin Concent 33, Red Cell Distribution Width 16.6, Platelet Count 355, Mean Platelet Volume 10.1, Neutrophils (%) (Auto) 90, Lymphocytes (%) (Auto) 9, Monocytes (%) (Auto) 1, Eosinophils (%) (Auto) 0, Basophils (%) (Auto) 0, Neutrophils # (Auto) 5.8, Lymphocytes # (Auto) 0.6, Monocytes # (Auto) 0.1, Eosinophils # (Auto) 0.0, Basophils # (Auto) 0.0, Neutrophils % (Manual) 92, Lymphocytes % (Manual) 4, Monocytes % (Manual) 4, Eosinophils % (Manual) 0, Basophils % (Manual) 0, Band Neutrophils 0, Hypochromasia SLIGHT, Anisocytosis SLIGHT, Target Cells SLIGHT, Prothrombin Time 13.1, INR Comment 1.0 07/10/18 09:30: Troponin I < 0.30 07/10/18 11:09: Glucometer 230 07/10/18 18:08: Glucometer 202 07/10/18 23:55: Glucometer 163 07/11/18 04:05: White Blood Count 8.8, Red Blood Count 3.20, Hemoglobin 10.5, Hematocrit 32, Mean Corpuscular Volume 100, Mean Corpuscular Hemoglobin 33, Mean Corpuscular Hemoglobin Concent 33, Red Cell Distribution Width 16.7, Platelet Count 362, Mean Platelet Volume 10.4, Neutrophils (%) (Auto) 71, Lymphocytes (%) (Auto) 21 , Monocytes (%) (Auto) 7, Eosinophils (%) (Auto) 1, Basophils (%) (Auto) 0, Neutrophils # (Auto) 6.3, Lymphocytes # (Auto) 1.8, Monocytes # (Auto) 0.6, Eosinophils # (Auto) 0.1, Basophils # (Auto) 0.0, Sodium Level 138, Potassium Level 3.4, Chloride Level 103, Carbon Dioxide Level 26, Anion Gap 9, Blood Urea Nitrogen 7, Creatinine 0.60, Estimat Glomerular Filtration Rate > 60, BUN/ Creatinine Ratio 12, Glucose Level 139, Calcium Level 9.2, Corrected Calcium 10.0, Phosphorus Level 2.1, Magnesium Level 1.4, Total Bilirubin 0.4, Aspartate Amino Transf (AST/SGOT) 14, Alanine Aminotransferase (ALT/SGPT) 13, Alkaline Phosphatase 112, Total Protein 6.1, Albumin 3.0 07/11/18 05:20: Prothrombin Time 13.3, INR Comment 1.0 07/11/18 05:46: Glucometer 437 07/11/18 06:11: Glucometer 106 07/11/18 09:10: Troponin I < 0.30 07/11/18 13:51: Glucometer 198 07/11/18 18:18: Glucometer 125 Discharge Home Medications: Active Scripts Active Reported Protonix (Pantoprazole Sodium) 40 Mg Tablet.dr 40 Mg PO BID Lyrica (Pregabalin) 50 Mg Capsule 50 Mg PO Q8H Lasix (Furosemide) 20 Mg Tablet 20 Mg PO DAILY Chlordiazepoxide HCl 25 Mg Capsule 25 Mg PO BID Amoxicillin 500 Mg Capsule 500 Mg PO Q8H 7 Days START DATE 07-08-18 END DATE 07-14-18 Warfarin Sodium 2.5 Mg Tablet 2.5 Mg PO DAILY Trazodone HCl 150 Mg Tablet 150 Mg PO HS Potassium Chloride 20 Meq Tablet.er 20 Meq PO DAILY Multiple Vitamin (Multivitamin with Minerals) 1 Each Tablet 1 Tab PO DAILY Metformin HCl 500 Mg Tablet 500 Mg PO BID WITH MEALS Lisinopril 10 Mg Tablet 10 Mg PO DAILY HOLD FOR SBP <100 OR PULSE <60 Folic Acid 1 Mg Tablet 1 Mg PO DAILY Diltiazem ER (Diltiazem HCl) 240 Mg Capsule.er 240 Mg PO DAILY HOLD FOR SBP<100 OR PULSE <60 Digoxin 125 Mcg Tablet 125 Mcg PO DAILY HOLD FOR HR<60 B-12 (Cyanocobalamin (Vitamin B-12)) 1,000 Mcg Tablet 1,000 Mcg PO DAILY Acetaminophen 325 Mg Tablet 650 Mg PO Q6H PRN Instructions to patient/family Please see electronic discharge instructions given to patient. Clinical Quality Measures DVT/VTE Risk/Contraindication: Risk Factor Score Per Nursin RFS Level Per Nursing on Admit: 4+=Very High MACHO PITT DO Jul 14, 2018 07:39
== END 2018-07-11 22:00 | DRG 193 ==
LOC: EDUNIT# 01:35 → ER 01:36 → ICU 03:27 → 4TH 07-10 10:39
PROVIDERS: ADMIT Family Medicine; ATTEND Internal Medicine
DX: J18.1 Lobar pneumonia, unspecified organism (principal); J96.90 Respiratory failure, unspecified, unspecified whether with hypoxia or hypercapnia; J90 Pleural effusion, not elsewhere classified; I42.9 Cardiomyopathy, unspecified; E86.0 Dehydration; D64.9 Anemia, unspecified; E83.42 Hypomagnesemia; Z66 Do not resuscitate; I48.91 Unspecified atrial fibrillation; I10 Essential (primary) hypertension; K21.9 Gastro-esophageal reflux disease without esophagitis; K75.9 Inflammatory liver disease, unspecified; E11.9 Type 2 diabetes mellitus without complications; R26.81 Unsteadiness on feet; M62.81 Muscle weakness (generalized); F03.90 Unspecified dementia, unspecified severity, without behavioral disturbance, psychotic disturbance, mood disturbance, and anxiety; F41.9 Anxiety disorder, unspecified; F32.9 Major depressive disorder, single episode, unspecified; K80.20 Calculus of gallbladder without cholecystitis without obstruction; K57.90 Diverticulosis of intestine, part unspecified, without perforation or abscess without bleeding; F10.20 Alcohol dependence, uncomplicated; W19.XXXA Unspecified fall, initial encounter; Y92.193 Bedroom in other specified residential institution as the place of occurrence of the external cause; Z79.01 Long term (current) use of anticoagulants; Z79.84 Long term (current) use of oral hypoglycemic drugs
CPT/HCPCS: 36415; 36600; 51702; 70450; 70496; 70498; 71045; 71250; 72125; 74176; 80048; 80053; 80162; 81000; 82805; 82962; 83605; 83735; 83880; 84100; 84484; 85007; 85025; 85027; 85610; 85730; 87040; 87081; 87088; 87449; 87804; 87899; 94640; 94760

== ENCOUNTER → 2018-09-03 | Outpatient (CLI) | payer MEDICARE ==
[~2018-09-03] MED LIST changes: +AMOX500C2 PO; +CHLO25CA10 PO; +FURO-125 PO; +PANT40TA2 PO; +PREG50CA2 PO
--- NOTE | 2018-09-03 19:34 | Diagnostic Imaging Report ---
INDICATION: Rule out pneumonia. No chest complaints. History of COPD. EXAMINATION: Two-view chest from 09/03/2018 Comparison made to 07/11/2018. FINDINGS: Two views of the chest There is a right pleural effusion increased from previous imaging, underlying atelectasis or infiltrate is likely. There is a vague density in the left lung base. This could represent a new infiltrate. A mass is difficult to completely exclude and followup is recommended after treatment to assure complete resolution. Azygos lobe noted similar to prior. The lungs are hyperinflated with chronic findings noted. Heart prominent and stable. No acute vascular change is appreciated. IMPRESSION: 1. Right effusion and infiltrate with vague density left lung base, new from previous imaging, likely a developing infiltrate; please see above discussion and recommendations. Other findings as above. Dictated by: Dictated on workstation # [id number]
== END ==
LOC: RAD 17:45
PROVIDERS: ATTEND Nurse Practitioner Family
DX: J90 Pleural effusion, not elsewhere classified (principal); J98.4 Other disorders of lung; J18.9 Pneumonia, unspecified organism; J44.9 Chronic obstructive pulmonary disease, unspecified
CPT/HCPCS: 71046

== ENCOUNTER → 2018-12-03 | Outpatient (CLI) | payer MEDICARE ==
[2018-12-03 19:16] LABS: HEMATOCRIT 39 % (40-54); HEMOGLOBIN 13.5 G/DL (13.3-17.7); MEAN CORPUSCULAR HEMOGLOBIN 29 PG (25-34); MEAN CORPUSCULAR VOLUME 83 FL (80-99); WHITE BLOOD COUNT 7.7 10^3/uL (4.3-11.0)
[2018-12-03 19:17] LABS: BASOPHILS # (AUTO) 0.1 10^3/uL (0.0-0.1); BASOPHILS % (AUTO) 1 % (0-10); EOSINOPHILS # (AUTO) 0.1 10^3/uL (0.0-0.3); EOSINOPHILS % (AUTO) 2 % (0-10); LYMPHOCYTES % (AUTO) 26 % (12-44); MEAN CORPUSCULAR HGB CONC 34 G/DL (32-36); MEAN PLATELET VOLUME 9.7 FL (7.4-10.4); MONOCYTES # (AUTO) 0.7 X 10^3 (0.0-1.0); MONOCYTES % (AUTO) 9 % (0-12); NEUTROPHILS # (AUTO) 4.8 X 10^3 (1.8-7.8); NEUTROPHILS % (AUTO) 63 % (42-75); PLATELET COUNT 206 10^3/uL (130-400); RED CELL DISTRIBUTION WIDTH 16.9 % (10.0-14.5)
[2018-12-03 20:09] LABS: INR 1.6 (0.8-1.4); PROTHROMBIN TIME PATIENT 20.1 SEC (12.2-14.7)
[2018-12-03 20:34] LABS: BUN/CREATININE RATIO 12; CALCIUM 9.1 MG/DL (8.5-10.1); CARBON DIOXIDE 26 MMOL/L (21-32); CHLORIDE 91 MMOL/L (98-107); CREATININE SERUM 0.57 MG/DL (0.60-1.30); GFR ESTIMATED > 60; GLUCOSE 130 MG/DL (70-105); POTASSIUM 4.3 MMOL/L (3.6-5.0); SODIUM 130 MMOL/L (135-145)
[2018-12-03 20:35] LABS: ALANINE AMINOTRANSFERASE 8 U/L (0-55); ALBUMIN 4.2 GM/DL (3.2-4.5); ALKALINE PHOSPHATASE 103 U/L (40-136)
[2018-12-04 15:10] LABS: CHOLESTEROL 156 MG/DL (< 200); HDL CHOLESTEROL 72 MG/DL (40-60); TRIGLYCERIDES 71 MG/DL (<150); VLDL CHOLESTEROL 14 MG/DL (5-40)
== END ==
LOC: LAB FS 18:50
PROVIDERS: ATTEND Family Medicine
DX: E11.22 Type 2 diabetes mellitus with diabetic chronic kidney disease (principal); N18.9 Chronic kidney disease, unspecified
CPT/HCPCS: 36415; 80053; 80061; 83036; 85025; 85610

== ENCOUNTER 2019-05-25 13:06 | Inpatient (IN) | payer MEDICARE ==
[~2019-05-25] VITALS: Ht 188 cm; Wt 96.1 kg
[2019-05-25] MEDS ORDERED: PIPERACILLIN/TAZOBACTAM (BULK) 4.5 GM in NS (IVPB) 100 ML IV ONE (14:00)
[2019-05-25] MEDS ORDERED: VANCOMYCIN INJECTION 1,000 MG in NS (IVPB) 250 ML IV SCH (14:00)
--- NOTE | 2019-05-25 14:27 | Diagnostic Imaging Report ---
INDICATION: Swelling. Open wound. COMPARISON: None. FINDINGS: Three views of the right foot demonstrate no acute fracture or dislocation. There are no focal osseous lesions. There is mild generalized soft tissue swelling. Joint spaces are well maintained. No radiopaque foreign bodies are seen. There is diffuse calcified arteriosclerosis. IMPRESSION: Mild generalized soft tissue swelling of the right foot, but no acute-appearing underlying osseous abnormality. Please note however that osteomyelitis cannot be excluded based on radiographs alone. If there is concern for osteomyelitis, MRI is recommended. If MRI is contraindicated, triple-phase bone scan could be performed. Dictated by: Dictated on workstation # [id number]
--- NOTE | 2019-05-25 14:31 | Diagnostic Imaging Report ---
INDICATION: Swelling. Open wound to the foot. COMPARISON: None. FINDINGS: Four views of the tibia and fibula were obtained and show no fractures, dislocations, or other acute bony abnormalities. Joint spaces are well maintained throughout. There is mild generalized soft tissue swelling. No radiopaque foreign bodies are identified. IMPRESSION: Mild generalized soft tissue swelling, but otherwise unremarkable radiographic exam of the tibia and fibula. Dictated by: Dictated on workstation # [id number]
[2019-05-25] MEDS ORDERED: PIPERACILLIN/TAZO 4.5 GM VIAL (ZOSYN) IV ONE (14:53)
[2019-05-25] MEDS ORDERED: NS (IVPB) 100 ML ONE (14:53)
[2019-05-25] MEDS ORDERED: VANCOMYCIN 1000 MG/VIAL ONE (14:53)
[2019-05-25] MEDS ORDERED: NS (IVPB) 250 ML ONE (14:54)
--- NOTE | 2019-05-25 14:59 | ED Integumentary General ---
General Chief Complaint: Skin/Wound Problems Stated Complaint: RT FOOT/BUTTOCK WOUND; RT LEG SWELLING History of Present Illness Date Seen by Provider: May 25, 2019 Time Seen by Provider: 13:00 Initial Comments The patient is a 73-year-old male with a history of hypertension, hyperlipidemia, paroxysmal atrial fibrillation on warfarin, [id number] diabetes and alcohol abuse. The patient present with concern for rapidly progressive redness and swelling in association with an ulceration to the right lateral forefoot, plantar aspect. Caregiver states this ulceration only appeared yesterday. Erythema and swelling extend much of the way up the right calf. No associated fevers, nausea or vomiting or other systemic symptoms. Patient states he is not having any pain but acknowledges significant neuropathy to his feet bilaterally. Allergies and Home Medications Allergies Coded Allergies: No Known Drug Allergies (Unverified , 10/25/17) Home Medications Acetaminophen 325 Mg Tablet, 650 MG PO Q6H PRN for PAIN-MILD OR TEMPATURE, (Reported) Amoxicillin 500 Mg Capsule, 500 MG PO Q8H, (Reported) START DATE 07-08-18 END DATE 07-14-18 Chlordiazepoxide HCl 25 Mg Capsule, 25 MG PO BID, (Reported) Cyanocobalamin (Vitamin B-12) 1,000 Mcg Tablet, 1,000 MCG PO DAILY, (Reported) Digoxin 125 Mcg Tablet, 125 MCG PO DAILY, (Reported) HOLD FOR HR<60 Diltiazem HCl 240 Mg Capsule.er, 240 MG PO DAILY, (Reported) HOLD FOR SBP<100 OR PULSE <60 Folic Acid 1 Mg Tablet, 1 MG PO DAILY, (Reported) Furosemide 20 Mg Tablet, 20 MG PO DAILY, (Reported) Lisinopril 10 Mg Tablet, 10 MG PO DAILY, (Reported) HOLD FOR SBP <100 OR PULSE <60 Metformin HCl 500 Mg Tablet, 500 MG PO BID WITH MEALS, (Reported) Multivitamin with Minerals 1 Each Tablet, 1 TAB PO DAILY, (Reported) Pantoprazole Sodium 40 Mg Tablet.dr, 40 MG PO BID, (Reported) Potassium Chloride 20 Meq Tablet.er, 20 MEQ PO DAILY, (Reported) Pregabalin 50 Mg Capsule, 50 MG PO Q8H, (Reported) Trazodone HCl 150 Mg Tablet, 150 MG PO HS, (Reported) Warfarin Sodium 2.5 Mg Tablet, 2.5 MG PO DAILY, (Reported) Patient Home Medication List Home Medication List Reviewed: Yes Review of Systems Review of Systems Constitutional: see HPI All Other Systems Reviewed Negative Unless Noted: Yes (Negative excepted noted.) Past Geaploi-Ntxeau-Bjkiha Hx Past Med/Social Hx: Reviewed Nursing Past Med/Soc Hx Patient Social History Alcohol Beverage of Choice: Whiskey, Wine 2nd Hand Smoke Exposure: No Recent Hopitalizations: No Immunizations Up To Date Tetanus Booster (TDap): Unknown Date of Pneumonia Vaccine: May 07, 2018 Date of Influenza Vaccine: May 14, 2018 Seasonal Allergies Seasonal Allergies: No Past Medical History Surgeries: No (UNKNOWN) Respiratory: Yes Pneumonia Cardiac: Yes (heart failure with lower extremity edema) Atrial Fibrillation, Cardiomyopathy, Hypertension Neurological: Yes (neuritis and neuralgia; dizziness) Genitourinary: Yes (current UTI) Gastrointestinal: Yes (ileus) Gastroesophageal Reflux, Liver Disease/Jaundice, Gastrointestinal Bleed, Hepatitis Musculoskeletal: Yes (generalized muscle weakness, unsteadiness on feet) Endocrine: Yes Diabetes, Non-Insulin dep HEENT: No Loss of Vision: Denies Hearing Impairment: Denies Cancer: No Psychosocial: Yes Anxiety, Depression Integumentary: No Blood Disorders: Yes (anemia) Family Medical History Reviewed Nursing Family Hx No Pertinent Family Hx Physical Exam Vital Signs Capillary Refill : General Appearance: no apparent distress Comments This is an elderly male appearing nontoxic and in no acute distress. Head is normocephalic and atraumatic. Neck is supple and nontender. Oropharynx is moist. Lungs are clear to auscultation in all stations. There is a normal S1 and S2 without rubs or gallops and capillary refill is appropriate, less than 2 seconds globally. Abdomen is soft, nontender and nondistended. Skin is warm and dry without cyanosis, clubbing or edema. Psychiatrically, the patient demonstrates appropriate mood and affect and is alert. Examination of the right lower extremity is remarkable for significant generalized erythema and swelling and warmth to the entire right foot and right ankle and right calf to about the midpoint in association with a shallow ulceration to the lateral right forefoot, about 2 cm in diameter. No crepitus. No duskiness. Right lower extremity is neurovascularly intact with 1+ pulses appreciated distally. Progress/Results/Core Measures Results/Orders Lab Results Laboratory Tests Test 05/25/19 14:25 Range/Units My Orders Orders - YUDELKA RUBIO MD Cbc With Automated Diff (05/25/19 13:51) Comprehensive Metabolic Panel (05/25/19 13:51) Erythrocyte Sedimentation Rate (05/25/19 13:51) Hs C Reactive Protein (05/25/19 13:51) Foot 3 View Right (05/25/19 13:51) Tibia Fibula 2 View Right (05/25/19 13:51) Ed Iv/Invasive Line Start (05/25/19 13:51) Vancomycin Injection (Vancomycin Injecti (05/25/19 14:00) Piperacillin/Tazobactam (Bulk) (Zosyn In (05/25/19 14:00) Lactic Acid Analyzer (05/25/19 13:51) Blood Culture (05/25/19 13:51) Digoxin (05/25/19 14:42) Blood Culture (05/25/19 14:48) Vancomycin Injection (Vancomycin Injecti (05/25/19 14:53) Piperacillin Sodium/Tazobactam (Zosyn Vi (05/25/19 14:53) Ns (Ivpb) (Sodium Chloride 0.9% Ivpb Bag (05/25/19 14:53) Ns (Ivpb) (Sodium Chloride 0.9%) (05/25/19 14:54) Progress Progress Note : Progress Note Patient will require admission for IV antibiotics and further care for his rapidly progressive diabetic soft tissue infection. We'll check labs and will draw cultures and give broad-spectrum antibiotics and will plan for admission. Will obtain plain films as well. Update 1514: Patient resting comfortably in no acute distress upon reassessment. He is graciously accepted in transfer to [facility] for inpatient admission by Dr. Garcia. Departure Impression Primary Impression: Diabetic foot infection Disposition: ADMITTED INPATIENT Condition: Stable Departure-Patient Inst. Referrals: MACHO PITT DO (PCP/Family) Primary Care Physician YUDELKA RUBIO MD May 25, 2019 14:59
[2019-05-25 15:28] LABS: CHLORIDE 88 MMOL/L (98-107); SODIUM 125 MMOL/L (135-145)
[2019-05-25 15:29] LABS: ALANINE AMINOTRANSFERASE 22 U/L (0-55); ALBUMIN 3.3 GM/DL (3.2-4.5); ALKALINE PHOSPHATASE 153 U/L (40-136); BILIRUBIN,TOTAL 0.4 MG/DL (0.1-1.0); BUN/CREATININE RATIO 14; CALCIUM 9.1 MG/DL (8.5-10.1); CARBON DIOXIDE 22 MMOL/L (21-32); GFR ESTIMATED > 60; GLUCOSE 154 MG/DL (70-105); TOTAL PROTEIN 6.2 GM/DL (6.4-8.2)
[2019-05-25] MEDS ORDERED: NS IV 1000 ML 1,000 ML IV SCH (15:33)
[2019-05-25] MEDS ORDERED: NS IV 1000 ML 1,000 ML ONE (15:35)
[2019-05-25 15:36] LABS: HEMATOCRIT 34 % (40-54); HEMOGLOBIN 11.8 G/DL (13.3-17.7); MEAN CORPUSCULAR HEMOGLOBIN 34 PG (25-34); MEAN CORPUSCULAR HGB CONC 35 G/DL (32-36); MEAN CORPUSCULAR VOLUME 99 FL (80-99); MEAN PLATELET VOLUME 9.3 FL (7.4-10.4); NEUTROPHILS % (AUTO) 69 % (42-75); PLATELET COUNT 308 10^3/uL (130-400); RED CELL DISTRIBUTION WIDTH 12.9 % (10.0-14.5); WHITE BLOOD COUNT 12.7 10^3/uL (4.3-11.0)
[2019-05-25 15:37] LABS: BASOPHILS # (AUTO) 0.1 10^3/uL (0.0-0.1); BASOPHILS % (AUTO) 1 % (0-10); EOSINOPHILS # (AUTO) 0.2 10^3/uL (0.0-0.3); EOSINOPHILS % (AUTO) 1 % (0-10); ERYTHROCYTE SEDIMENTATION RATE 28 MM/HR (0-30); LYMPHOCYTES # (AUTO) 2.1 X 10^3 (1.0-4.0); LYMPHOCYTES % (AUTO) 17 % (12-44); MONOCYTES # (AUTO) 1.5 X 10^3 (0.0-1.0); MONOCYTES % (AUTO) 12 % (0-12); NEUTROPHILS # (AUTO) 8.7 X 10^3 (1.8-7.8)
--- NOTE | 2019-05-25 16:00 | NUR ---
Notified patient that there will be a delay in transfer due to the ambulance being out of the [facility]. Other services have been called and no one is available to take the transfer. Will page out transfer when [facility] is available.
[2019-05-25] MEDS ORDERED: LORazepam INJ 2 MG/ML (ATIVAN) VIAL IVP ONE (18:15)
--- NOTE | 2019-05-25 19:40 | NUR ---
Called dispatch to page out transfer at this time.
--- NOTE | 2019-05-25 20:02 | NUR ---
Patient transferred at this time to via [facility] via [facility]. Report given to haven.
[2019-05-25 21:00] VITALS: BP 113/58
--- NOTE | 2019-05-25 21:00 | NUR ---
MACHO MAIER admitted to room 405-1, with an admitting diagnosis of CELLULITIS TO FOOT, on 05/25/19 from ED, accompanied by EMS STAFF.MACHO MAIER introduced to surroundings, call light, bed controls, phone, TV, temperature control, lights, meal times, smoking policy, visitor policy, side rail policy, bathrooms and showers. Patient Rights given to patient in the handbook. MACHO MAIER verbalizes understanding that [facility] is not responsible for the loss or damage to any personal effects or valuables that are kept in the patients possession during their hospitalization. Patient and/or family were informed about the Rapid Response Team and its purpose.
[2019-05-25] MEDS ORDERED: 1/2 NS IV SOLUTION 1,000 ML IV PRN (21:39)
[2019-05-25] MEDS ORDERED: HYDROmorphone 2 MG/ML VIAL (DILAUDID) IVP PRN (21:45)
[2019-05-25] MEDS ORDERED: POLYETHYLENE GLYCOL 17 GM (MIRALAX) PACK PO PRN (21:45)
[2019-05-25] MEDS ORDERED: LORazepam INJ 2 MG/ML (ATIVAN) VIAL IM/IV PRN (21:45)
[2019-05-25] MEDS ORDERED: ACETAMINOPHEN 325 MG TABLET PO PRN (21:45)
[2019-05-25] MEDS ORDERED: MELATONIN 3 MG TABLET PO PRN (21:45)
[2019-05-25] MEDS ORDERED: SENNA W/DOCUSATE (SENOKOT S) TABLET PO PRN (21:45)
[2019-05-25] MEDS ORDERED: ENOXAPARIN 40 MG/0.4 ML (LOVENOX) SYR SC SCH (21:45)
[2019-05-25] MEDS ORDERED: ANTACID SUSP 30 ML UDC (MYLANTA) PO PRN (21:45)
[2019-05-25] MEDS ORDERED: ONDANSETRON 4 MG (ZOFRAN) ORAL DISSOLVE TAB SL PRN (21:45)
[2019-05-25] MEDS ORDERED: D5 1/2 NS 1000 ML IV SOLUTION 1,000 ML IV PRN (21:45)
--- NOTE | 2019-05-25 23:55 | NUR ---
PT HAD ORDER FOR IV ZOSYN DUE AT 2200. PT HAD ARRIVED TO HOSPITAL AT 2100 AND PHARMACY HAD LEFT FOR THE NIGHT AND UNABLE TO MIX ZOSYN. BLENDING OPERATOR, STAR, TOLD THIS RN HE DID NOT WANT TO HAVE NURSING STAFF OR HIMSELF MIX ZOSYN AND TO HOLD MED UNTIL TOMORROW AM.
[2019-05-26] VITALS: BP 126/67
[2019-05-26] MEDS ORDERED: ACETAMINOPHEN 325 MG TABLET PO PRN
[2019-05-26] MEDS: PIPERACILLIN/TAZO 4.5 GM/NS 100 ML IV SCH ×8 (00:01→19:22)
[2019-05-26] MEDS: LORazepam 1 MG (ATIVAN) TAB PO PRN (01:20)
[2019-05-26 04:00] VITALS: BP 112/70
[2019-05-26 06:19] LABS: BASOPHILS % (AUTO) 1 % (0-10); EOSINOPHILS # (AUTO) 0.2 10^3/uL (0.0-0.3); EOSINOPHILS % (AUTO) 3 % (0-10); HEMATOCRIT 34 % (40-54); HEMOGLOBIN 11.7 G/DL (13.3-17.7); LYMPHOCYTES # (AUTO) 1.6 X 10^3 (1.0-4.0); LYMPHOCYTES % (AUTO) 20 % (12-44); MEAN CORPUSCULAR HEMOGLOBIN 34 PG (25-34); MEAN CORPUSCULAR HGB CONC 34 G/DL (32-36); MEAN CORPUSCULAR VOLUME 99 FL (80-99); MEAN PLATELET VOLUME 9.4 FL (7.4-10.4); MONOCYTES # (AUTO) 0.9 X 10^3 (0.0-1.0); MONOCYTES % (AUTO) 11 % (0-12); NEUTROPHILS # (AUTO) 5.2 X 10^3 (1.8-7.8); NEUTROPHILS % (AUTO) 66 % (42-75); PLATELET COUNT 258 10^3/uL (130-400); RED CELL DISTRIBUTION WIDTH 13.1 % (10.0-14.5); WHITE BLOOD COUNT 7.9 10^3/uL (4.3-11.0)
[2019-05-26 06:40] LABS: ALANINE AMINOTRANSFERASE 25 U/L (0-55); ALKALINE PHOSPHATASE 151 U/L (40-136); BILIRUBIN,TOTAL 0.6 MG/DL (0.1-1.0); BUN/CREATININE RATIO 12; CALCIUM 8.6 MG/DL (8.5-10.1); CARBON DIOXIDE 26 MMOL/L (21-32); CHLORIDE 97 MMOL/L (98-107); CREATININE SERUM 0.78 MG/DL (0.60-1.30); GFR ESTIMATED > 60; GLUCOSE 158 MG/DL (70-105); POTASSIUM 3.9 MMOL/L (3.6-5.0); SODIUM 132 MMOL/L (135-145); TOTAL PROTEIN 5.6 GM/DL (6.4-8.2)
[2019-05-26 08:00] VITALS: BP 95/54
[2019-05-26] MEDS ORDERED: CATHETER FLUSH 10 ML SYR IV PRN (08:00)
--- NOTE | 2019-05-26 08:08 | NUR ---
VANCOMYCIN DOSING SCR 0.78 (USED 1.0); CRCL ~ 76; VANC 1 GM GIVEN IN ED AT 16:25 - MISTY YAÑEZ DOSED VANC 1 GM DAILY@14 - REVIEWED AND DOSE SHOULD BE VANC 15 MG/KG X 96 KG ~ 1500 MG Q12H CHECK TROUGH / 0700 HOLD DOSE AND CONTACT PHARMACY IF LEVEL IS GREATER THAN 20
[2019-05-26] MEDS ORDERED: RIVA20TA PO (10:32)
[2019-05-26] MEDS ORDERED: GABA-488 PO (10:32)
[2019-05-26] MEDS ORDERED: DILT240C53 PO (10:32)
--- NOTE | 2019-05-26 11:47 | NUR ---
SPOKE WITH THE PATIENT ABOUT HIS MEDICATIONS. HE STATES HE DOES NOT HAVE A LIST OF THEM BUT HE GETS THEM ALL FILLED AT [facility] IN [place]. HE STATES [facility] IS SUPPOSED TO COME IN AND SET UP HIS PILL SLEEPING [facility] [employer] HOWEVER THEY HAVE NOT BEEN COMING EVERY WEEK. I CALLED AND HAD A LIST OF RECENTLY FILLED MEDICATIONS FAXED OVER FROM [facility] WELL A LIST FROM [facility]. THE LIST FROM [facility] HAD VITAMIN B12, MTV, AND TRAZODONE ON IT THAT HAVE NOT BEEN FILLED RECENTLY. TRAZODONE WAS LAST FILLED IN DECEMBER FOR 150MG HS #30. HE STATES HE DOES NOT TAKE ANYTHING OTC. [facility] DID FILL VITAMIN B12 1000MCG BUT NOT SINCE 03-11-19 #30. I DID NOT INCLUDE THE TRAZODONE, VITAMIN B12, OR MTV ON THE MED REC AT THIS TIME. IN ADDITION TO WHAT IS ON THE LIST FROM [facility] FILLED GABAPENTIN 300MG TID 05-06-19 #90 - I DID ADD IT TO THE MED REC AT THIS TIME.
[2019-05-26 12:00] VITALS: BP 119/58
[2019-05-26] MEDS: VANCOMYCIN INJECTION 1,500 MG in NS IV 500 ML 500 ML IV SCH ×2 (12:16→23:24)
--- NOTE | 2019-05-26 12:20 | History & Physical-Hospitalist ---
History of Present Illness HPI/Chief Complaint Sigifredo Gray is a 73yoM with PMH HTN, HLD, T2DM, who presented with right leg swelling and erythema. He reports that it all started one day ago and rapidly progressed. He was unaware of the ulcer on his foot. He denies fevers and chills. He denies abdominal pain, nausea, vomiting, diarrhea, dysuria, chest pain, dyspnea, or cough. He reports that his diabetes is well controlled and his blood sugar is usually around 130 when he checks it. He smokes cigarettes and drinks alcohol daily. He denies any history of withdrawal. He denies any history of CAD, CVD, and PAD. Source: patient Exam Limitations: no limitations Date Seen 05/26/19 Time Seen by a Provider: 08:45 Attending Physician Cara Sands MD PCP Mohamud Salas MD Referring Physician Date of Admission May 25, 2019 at 18:30 Home Medications & Allergies Home Medications Reviewed patient Home Medication Reconciliation performed by pharmacy medication reconciliations instrument and controls technician and/or nursing. Patients Allergies have been reviewed. Allergies Allergies Coded Allergies No Known Drug Allergies (Unverified10/25/17) Past Ziewikm-Ntoxvd-Huwkwh Hx Past Med/Social Hx: Reviewed Nursing Past Med/Soc Hx Patient Social History Alcohol Use: Regular Use Number of Drinks Today: Alcohol Beverage of Choice: Whiskey, Wine Recreational Drug Use: No Smoking Status: Current Everyday Smoker Type Used: Cigars 2nd Hand Smoke Exposure: Yes Recent Foreign Travel: No Contact w/other who traveled: No Recent Hopitalizations: No Recent Infectious Disease Expo: No Immunizations Up To Date Tetanus Booster (TDap): Unknown Date of Pneumonia Vaccine: Aug 26, 2015 Date of Influenza Vaccine: May 14, 2018 Seasonal Allergies Seasonal Allergies: No Past Medical History Cardiac: Atrial Fibrillation, Cardiomyopathy, Hypertension Gastrointestinal: Gastroesophageal Reflux, Liver Disease/Jaundice, Gastrointestinal Bleed, Hepatitis Endocrine: Diabetes, Non-Insulin dep Loss of Vision: Denies Hearing Impairment: Denies Psychosocial: Anxiety, Depression History of Blood Disorders: Yes (anemia) Family History Reviewed Nursing Family Hx No Pertinent Family Hx Review of Systems Constitutional: no symptoms reported, see HPI EENTM: no symptoms reported Respiratory: no symptoms reported Cardiovascular: no symptoms reported Gastrointestinal: no symptoms reported Genitourinary: no symptoms reported Musculoskeletal: no symptoms reported Skin: change in color Psychiatric/Neurological: No Symptoms Reported Physical Exam Physical Exam Vital Signs Vital Signs - First Documented 05/25/19 14:00 Temp 37.4 Pulse 83 Resp 16 B/P (MAP) 113/49 (70) Pulse Ox 96 Capillary Refill : Less Than 3 Seconds Height, Weight, BMI Height: 5'11.00" Weight: 179lbs. 9.0oz. 81.029438fy; 27.18 BMI Method:Estimated General Appearance: No Apparent Distress, WD/WN HEENT: PERRL/EOMI, Pharynx Normal Neck: Normal Inspection, Supple Respiratory: Lungs Clear, Normal Breath Sounds, No Respiratory Distress Cardiovascular: Regular Rate, Rhythm, No Edema, No Murmur Gastrointestinal: Normal Bowel Sounds, Non Tender, Soft Extremity: Inflammation, Pedal Edema Neurologic/Psychiatric: Alert, Oriented x3, No Motor/Sensory Deficits Skin: Erythema, Other (right plantar ulceration) Lymphatic: No Adenopathy Results Results/Procedures Labs Laboratory Tests 05/25/19 14:25 05/26/19 05:30 Patient resulted labs reviewed. Imaging: Reviewed Imaging Report Assessment/Plan Admission Diagnosis Severe sepsis due to diabetic foot infection Admission Status: Inpatient Order (span 2 midnights) Reason for Inpatient Admission: T2DM Lactic acidosis Hyponatremia Alcohol abuse Assessment and Plan Severe sepsis due to diabetic foot infection -Leukocytosis and tachycardia on arrival with lactic acidosis -Diabetic foot infection of right foot -XR without signs of osteomyelitis -ESR normal, CRP mildly elevated -Started on Vanc/Zosyn -Obtain wound culture -Consult wound, appreciate recommendations Lactic acidosis -Resolved -3.5 on arrival, improved with fluids Hyponatremia -125 on arrival, 132 following fluid resuscitation -Hypovolemic vs beer potomania -Continue to monitor T2DM with foot infection -Metformin monotherapy at home -Accuchecks ACHS and SSI A ordered -Check A1C EtOH abuse -EtOH 15 on arrival -CIWA protocol initiated -Monitor for signs of withdrawal Paroxysmal atrial fibrillation -EKG with NSR on arrival -Continue diltiazem and Xarelto Diagnosis/Problems Diagnosis/Problems (1) Severe sepsis Status: Acute (2) Lactic acidosis Status: Acute (3) Type 2 diabetes mellitus Status: Chronic Qualifiers: Diabetes mellitus alf insulin use: without alf use Diabetes mellitus complication status: with skin complications Diabetes mellitus complication detail: with foot ulcer Qualified Codes: E11.621 - Type 2 diabetes mellitus with foot ulcer; L97.509 - Non-pressure chronic ulcer of other part of unspecified foot with unspecified severity (4) Hyponatremia Status: Acute (5) Current smoker Status: Chronic (6) Alcohol abuse Status: Chronic (7) Diabetic foot infection Status: Acute Clinical Quality Measures DVT/VTE Risk/Contraindication: Risk Factor Score Per Nursin RFS Level Per Nursing on Admit: 4+=Very High CARA SANDS MD May 26, 2019 12:20
--- NOTE | 2019-05-26 12:29 | NUR ---
RD ASSESSMENT PMHx: T2DM, HTN, HLD, GERD, Hepatitis, afib, ETOH abuse PT INTERACTION: Pt was awake and pleasant during nutrition assessment. Pt states current appetite is "not good," and hasn't been good for the past several months. Pt states no issues with chewing/swallowing at this time. Pt states no issues with n/v/d/c at this time and states last BM was two days ago. Pt states no recent wt changes. Note unable to determine recent wt hx, per chart review. Pt states current management of DM is "pretty good." Note presence of wound on pt's right foot. ABNORMAL NUTRITION-RELATED LAB VALUES: Na 132 (L); Cl 97 (L); glu 158 (H); Hgb 11.7 (L); Hct 34 (L); alb 3.0 (L); Pro 5.6 (L); Alkphos 151 (H); AST 35 H Est. kcal needs: 6958-5021 kcal (20-25 kcal/kg) Est. Pro needs: 115-135 g Pro (1.2-1.4 g Pro/kg) PES STATEMENT: Inadequate oral intake related to loss of appetite | increased protein needs as evidenced by Wound (right foot) | Pt interview INTERVENTION: Change current diet order to CHO 60g/m 3 snack, due to elevated blood glucose levels and DM management. Encouraged pt to eat when able. Pt may benefit from nutrition supplementation if PO intake declines to below 50%. MONITOR/EVALUATE: PO Intake Weight Status Hydration Status Stool Output Lab Values Ramesh Esquivel, MS, RD [phone]
[2019-05-26] MEDS ORDERED: DILTIAZEM 240 MG (CARDIZEM CD) CAP PO NR (12:30)
[2019-05-26] MEDS ORDERED: RIVAROXABAN 20 MG TABLET (XARELTO) PO NR (12:30)
[2019-05-26] MEDS ORDERED: FLU QUADRIvalent (5+ YOA) 2019-2020 (AFLURIA) 0.5 ML IM ONE ×2 (12:45→16:00)
[2019-05-26] MEDS: inSUlin ASPART (NovoLOG) 1 UNIT/0.01 ML (CHARGE PER UNIT) SC SCH ×3 (12:53→22:25)
[2019-05-26] MEDS: GABAPENTIN 300 MG (NEURONTIN) CAP PO SCH ×3 (12:58→22:32)
--- NOTE | 2019-05-26 13:49 | NUR ---
Pastoral care visit.
[2019-05-26] MEDS ORDERED: VANCOMYCIN 1 GM/NS 250 ML IVPB IV SCH ×2 (14:00)
[2019-05-26 15:49] VITALS: BP 115/70
[2019-05-26 19:22] VITALS: BP 109/63
[2019-05-26] MEDS: LORazepam INJ 2 MG/ML (ATIVAN) VIAL IV PRN ×2 (19:22→22:42)
--- NOTE | 2019-05-26 21:52 | NUR ---
pt niece/power of city attorney tegan valverde called to check on pt status-pt gave this rn permission to speak with her after he himself spoke with her &password was set up.
[2019-05-26] MEDS: PREGABALIN 50 MG (LYRICA) CAP PO SCH (22:26)
[2019-05-26] MEDS: ZINC OXIDE 16% OINT (BUTT PASTE) 113 GM TUBE TOP SCH (22:27)
--- NOTE | 2019-05-26 22:31 | NUR ---
PT REFUSED GABAPENTIN
[2019-05-27] MEDS: PIPERACILLIN/TAZO 4.5 GM/NS 100 ML IV SCH ×2 (00:08)
[2019-05-27 00:48] VITALS: BP 138/77
[2019-05-27 04:00] VITALS: BP 151/88
[2019-05-27] MEDS ORDERED: PIPERACILLIN/TAZO 4.5 GM/NS 100 ML IV SCH ×2 (04:00)
[2019-05-27] MEDS: LORazepam 1 MG (ATIVAN) TAB PO PRN ×2 (04:12→06:58)
[2019-05-27] MEDS: inSUlin ASPART (NovoLOG) 1 UNIT/0.01 ML (CHARGE PER UNIT) SC SCH ×2 (06:08→12:12)
[2019-05-27] MEDS ORDERED: TROUGH ORDER-PHARMACY XX NR (07:00)
[2019-05-27] MEDS ORDERED: PANTOPRAZOLE 40 MG (PROTONIX) TAB PO SCH (07:00)
[2019-05-27 07:48] LABS: BUN/CREATININE RATIO 7; CALCIUM 8.7 MG/DL (8.5-10.1); CARBON DIOXIDE 25 MMOL/L (21-32); CHLORIDE 101 MMOL/L (98-107); CREATININE SERUM 0.68 MG/DL (0.60-1.30); GFR ESTIMATED > 60; GLUCOSE 119 MG/DL (70-105); MAGNESIUM 1.5 MG/DL (1.6-2.4); PHOSPHORUS 2.7 MG/DL (2.3-4.7); POTASSIUM 3.9 MMOL/L (3.6-5.0); SODIUM 134 MMOL/L (135-145)
[2019-05-27 08:00] VITALS: BP 154/88
[2019-05-27] MEDS ORDERED: RIVAROXABAN 20 MG TABLET (XARELTO) PO SCH (08:00)
[2019-05-27] MEDS ORDERED: DIGOXIN 0.125 MG (LANOXIN) TAB PO SCH (09:00)
[2019-05-27] MEDS ORDERED: FUROSEMIDE 20 MG (LASIX) TAB PO SCH (09:00)
[2019-05-27] MEDS ORDERED: DILTIAZEM 240 MG (CARDIZEM CD) CAP PO SCH (09:00)
[2019-05-27] MEDS: ZINC OXIDE 16% OINT (BUTT PASTE) 113 GM TUBE TOP SCH (09:14)
[2019-05-27] MEDS: PREGABALIN 50 MG (LYRICA) CAP PO SCH (09:14)
[2019-05-27] MEDS ORDERED: AMOX-358 PO (11:08)
--- NOTE | 2019-05-27 11:12 | D/C HH Face to Face Order ---
D/C Face to Face Orders Reconcile Patient Problems Problems Reviewed?: Yes Instructions for Patient [facility] [employer], Patient Instructions/FollowUp: Take medications as prescribed. Follow up with Dr. Johnson for wound care. Home Health will provide dressing changes. Physician to follow Patient: Surajsilvana Discharge Diet for Home: No Restrictions Patient Data-Allergies,Ht & Wt Patient Allergies: Coded Allergies: No Known Drug Allergies (Unverified , 10/25/17) Height (Feet): 5 Height (Inches): 11.00 Weight (Pounds): 179 Weight (Ounces): 9.0 Home Health Need/Face to Face Date of Face to Face: May 27, 2019 Clinical Findings: Wound infection I have seen Pt atsx-up-[id number]: Yes Discharged To: Home Diagnosis/Conditions: Diabetic foot ulcer Problems/Diagnosis/Condition: (1) Diabetic foot infection Patient is Homebound due to: Enoch fall risk due to instabilty Homebound Status Due to the above stated illness, injury or surgical procedure (medical condition or diagnosis) and associated clinical findings, the patient is homebound because of his/her inability to leave home except with aid of a supportive device and/or person AND leaving the home requires a considerable and taxing effort or is medically contraindicated. Pt req the following assistanc: Aid of another person Home Health Nursing Orders Home Health Services Order: Nursing Services, Wound Care-Eval/Treat wound care per Dr. Johnson's instructions Home Health Infusion Therapy Line Start Date: May 26, 2019 Certify Stmt I certify that this patient is under my care and that I, a nurse practitioner or a physician; a inside sales assistant working with me, had a face to face encounter that - meets the physician face to face encounter requirements with this patient as dated. ADITHYA SANDS MD May 27, 2019 11:12
[2019-05-27 12:00] VITALS: BP 130/72
--- NOTE | 2019-05-27 12:41 | NUR ---
CM/SS, respond to consult to finalize discharge services. [facility]: Patient is established with [facility]/Kobi Cruz, provided clinical, orders, instructions for nursing and wound care. SUMMARY: Visited with patient who shared that his nieces are his POA's. He understands he is discharged today, he is up in chair at bedside. Found out from patient that contact information for POA's is not current, contacted Chantal Isaac to update. Visited with Chantal who resides in [place], she pays for two in-home caregivers for patient. She shared that he became a about 2 years ago and since that time he has slept in the recliner because he won't return to the bed after losing his . Because of his perineum/groin/buttock wounds, we discussed the importance of offloading and sleeping in bed if possible. Family and caregivers to try to encourage. Chantal will call caregivers to transport patient home. Klarissa Biggs, POA [address], [address] [place] [address] PH: [phone] Anuja Klarissa Castillo, PO[address] [place] [address] PH: [phone] Caregiver: DAVID Dennison PH: [phone]
[2019-05-27] MEDS ORDERED: VANCOMYCIN INJECTION 1,500 MG in NS IV 500 ML 500 ML IV SCH (13:00)
--- NOTE | 2019-05-27 14:01 | Discharge Summary ---
Discharge Summary Hospital Course Problems/Dx: (1) Severe sepsis Status: Resolved (2) Lactic acidosis Status: Resolved (3) Type 2 diabetes mellitus Status: Chronic Qualifiers: Qualified Codes: E11.621 - Type 2 diabetes mellitus with foot ulcer; L97.509 - Non-pressure chronic ulcer of other part of unspecified foot with unspecified severity (4) Hyponatremia Status: Resolved (5) Current smoker Status: Chronic (6) Alcohol abuse Status: Chronic (7) Diabetic foot infection Status: Acute Hospital Course Date of Admission: May 25, 2019 at 18:30 Admission Diagnosis : Sepsis due to diabetic foot infection Family Physician/Provider: Malissa Garrett MD Date of Discharge: 05/27/19 Discharge Diagnosis: Sepsis due to diabetic foot infection Hospital Course: Sigifredo Gray is a 73yoM with PMH T2DM who was admitted with sepsis due to a diabetic foot ulcer. He also had a surrounding cellulitis which improved rapidly with IV antibiotics. The workup did not reveal any underlying osteomyelitis. Wound care was consulted and he will follow up with Dr. Johnson as an outpatient. He was transitioned to Augmentin to complete a 10-day course of antibiotics. He was set up with home health who will help with wound care. Labs and Pending Lab Test: Laboratory Tests 05/26/19 15:56: Glucometer 126H 05/26/19 22:00: Glucometer 157H 05/27/19 05:44: Glucometer 136H 05/27/19 07:10: Sodium Level 134L, Potassium Level 3.9, Chloride Level 101, Carbon Dioxide Level 25, Anion Gap 8, Blood Urea Nitrogen 5L, Creatinine 0.68, Estimat Glomerular Filtration Rate > 60, BUN/Creatinine Ratio 7, Glucose Level 119H, Calcium Level 8.7, Phosphorus Level 2.7, Magnesium Level 1.5L 05/27/19 10:59: Glucometer 148H 05/27/19 11:04: Vancomycin Level Trough 16.4 Microbiology 05/25/19 Blood Culture - Preliminary, Resulted No growth Home Meds Active Augmentin 875-125 Tablet (Amoxicillin/Potassium Clav) 1 Each Tablet 1 Each PO BID 10 Days Reported Xarelto (Rivaroxaban) 20 Mg Tablet 20 Mg PO DAILY Gabapentin 300 Mg Capsule 300 Mg PO TID Cartia Xt (Diltiazem HCl) 240 Mg Cap.er.24h 240 Mg PO DAILY Protonix (Pantoprazole Sodium) 40 Mg Tablet.dr 40 Mg PO DAILY Lyrica (Pregabalin) 50 Mg Capsule 50 Mg PO BID LAST FILLED #60 8--19 Lasix (Furosemide) 20 Mg Tablet 20 Mg PO DAILY Potassium Chloride 20 Meq Tablet.er 20 Meq PO DAILY Metformin HCl 500 Mg Tablet 500 Mg PO DAILY Lisinopril 10 Mg Tablet 10 Mg PO DAILY Folic Acid 1 Mg Tablet 1 Mg PO DAILY Digoxin 125 Mcg Tablet 125 Mcg PO DAILY Assessment/Pt Instructions See "discharge instructions" Discharge Planning: <30 minutes discharge planning Discharge Instructions Discharge Diet: No Restrictions, ADA Diet Activity as Tolerated: Yes Consultations Wound care Discharge Physical Examination Vital Signs Vital Signs Date Time Temp Pulse Resp B/P (MAP) Pulse Ox O2 Delivery O2 Flow Rate FiO2 05/27/19 13:17 05/27/19 13:00 82 05/27/19 12:00 36.6 20 98 Room Air General Appearance: No Apparent Distress, WD/WN HEENT: PERRL/EOMI, Pharynx Normal Respiratory: Lungs Clear, Normal Breath Sounds, No Respiratory Distress Cardiovascular: Regular Rate, Rhythm, No Murmur Gastrointestinal: Normal Bowel Sounds, Non Tender, Soft Extremity: Non Tender, Swelling (right leg 2+ edema, right foot ulcer), Other Skin: Normal Color, Warm/Dry Neurologic/Psychiatric: Alert, Oriented x3 Allergies: Coded Allergies: No Known Drug Allergies (Unverified , 10/25/17) Copy Copies To 1: MALISSA GARRETT MD Discharge Summary Date of Admission May 25, 2019 at 18:30 Date of Discharge May 27, 2019 at 13:19 Discharge Date: May 27, 2019 Discharge Time: 08:45 Admission Diagnosis Severe sepsis due to diabetic foot infection Consults/Procedures Consulations Wound Discharge Diagnosis Severe sepsis due to diabetic foot infection (1) Severe sepsis Status: Resolved (2) Lactic acidosis Status: Resolved (3) Type 2 diabetes mellitus Status: Chronic Qualifiers: Qualified Codes: E11.621 - Type 2 diabetes mellitus with foot ulcer; L97.509 - Non-pressure chronic ulcer of other part of unspecified foot with unspecified severity (4) Hyponatremia Status: Resolved (5) Current smoker Status: Chronic (6) Alcohol abuse Status: Chronic (7) Diabetic foot infection Status: Acute Clinical Quality Measures DVT/VTE Risk/Contraindication: Risk Factor Score Per Nursin RFS Level Per Nursing on Admit: 4+=Very High ADITHYA SANDS MD May 27, 2019 13:56
== END 2019-05-27 13:19 | disposition home health service (06) | DRG 872 ==
LOC: EDUNIT# 13:06 → ER FS 13:07 → 4TH 18:30
PROVIDERS: ADMIT Internal Medicine; ATTEND Internal Medicine
DX: A41.9 Sepsis, unspecified organism (principal); E11.621 Type 2 diabetes mellitus with foot ulcer; L03.115 Cellulitis of right lower limb; E87.2 Acidosis; E11.42 Type 2 diabetes mellitus with diabetic polyneuropathy; Z79.84 Long term (current) use of oral hypoglycemic drugs; I48.0 Paroxysmal atrial fibrillation; E87.1 Hypo-osmolality and hyponatremia; I10 Essential (primary) hypertension; E78.5 Hyperlipidemia, unspecified; I42.9 Cardiomyopathy, unspecified; K21.9 Gastro-esophageal reflux disease without esophagitis; F41.9 Anxiety disorder, unspecified; F32.9 Major depressive disorder, single episode, unspecified; F10.10 Alcohol abuse, uncomplicated; Z23 Encounter for immunization
CPT/HCPCS: 36415; 73590; 73630; 80048; 80053; 80162; 80202; 80320; 82962; 83036; 83605; 83735; 84100; 85025; 85652; 86141; 87040; 87070; 87075; 87077; 87186; 87205; 93005; 96361; 96365; 96367; 96375

== ENCOUNTER 2019-06-01 16:39 | Inpatient (IN) | payer MEDICARE ==
[~2019-06-01] VITALS: Ht 188 cm; Wt 98.4 kg
[~2019-06-01 16:39] MED LIST changes: +AMOX-358 PO; +DILT240C53 PO; +GABA-488 PO; +RIVA20TA PO
--- NOTE | 2019-06-01 17:00 | NUR ---
Assisted pt with urinal at this time.
--- NOTE | 2019-06-01 17:05 | ED Integumentary General ---
General Chief Complaint: Skin/Wound Problems Stated Complaint: YEAST INFECTION Nursing Triage Note: Pt to Rm 3 via [facility] EMS with C/O yeast infection on sacrum and iglesia area. Pt was seen here last week and has been applying barrier cream to area since. Source: patient Exam Limitations: no limitations History of Present Illness Date Seen by Provider: Jun 01, 2019 Time Seen by Provider: 17:01 Initial Comments To ER per EMS ([facility]) with complaints of perineal yeast infection. He was admitted here last week for wound with secondary cellulitis to the right lateral foot, x-rays were done and osteomyelitis was not felt likely. He was given IV antibiotics, cellulitis cleared. He states he still on antibiotics but has a lot of pain and burning and itching to his groin. He's been using topical barrier ointment without relief. No fevers or chills. He is currently on Bactrim and Augmentin Timing/Duration: week, getting worse Severity: moderate Location: genitalia Possible Cause: no cause identified Allergies and Home Medications Allergies Coded Allergies: No Known Drug Allergies (Unverified , 10/25/17) Home Medications Amoxicillin/Potassium Clav 1 Each Tablet, 1 EACH PO BID Prescribed by: ADITHYA SANDS on 05/27/19 1108 Clotrimazole 15 Gm Cream..g., 2 GM TP BID Prescribed by: SERAFIN BOONE on 06/01/19 1818 Digoxin 125 Mcg Tablet, 125 MCG PO DAILY, (Reported) Diltiazem HCl 240 Mg Cap.er.24h, 240 MG PO DAILY, (Reported) Folic Acid 1 Mg Tablet, 1 MG PO DAILY, (Reported) Furosemide 20 Mg Tablet, 20 MG PO DAILY, (Reported) Gabapentin 300 Mg Capsule, 300 MG PO TID, (Reported) Lisinopril 10 Mg Tablet, 10 MG PO DAILY, (Reported) Metformin HCl 500 Mg Tablet, 500 MG PO DAILY, (Reported) Pantoprazole Sodium 40 Mg Tablet.dr, 40 MG PO DAILY, (Reported) Potassium Chloride 20 Meq Tablet.er, 20 MEQ PO DAILY, (Reported) Pregabalin 50 Mg Capsule, 50 MG PO BID, (Reported) LAST FILLED #60 04-14-19 Rivaroxaban 20 Mg Tablet, 20 MG PO DAILY, (Reported) Patient Home Medication List Home Medication List Reviewed: Yes Review of Systems Review of Systems Constitutional: see HPI EENTM: see HPI Respiratory: no symptoms reported Cardiovascular: no symptoms reported Genitourinary: no symptoms reported Musculoskeletal: no symptoms reported Skin: see HPI Psychiatric/Neurological: No Symptoms Reported Endocrine: No Symptoms Reported Past Ftocbui-Joyncb-Hjloqv Hx Patient Social History Alcohol Use: Regular Use Number of Drinks Today: HH Alcohol Beverage of Choice: Whiskey, Wine Recreational Drug Use: No Smoking Status: Current Everyday Smoker Type Used: Cigars 2nd Hand Smoke Exposure: Yes Recent Foreign Travel: No Contact w/Someone Who Travel: No Recent Infectious Disease Expo: No Recent Hopitalizations: No Physical Abuse: No Sexual Abuse: No Mistreated: No Fear: No Immunizations Up To Date Tetanus Booster (TDap): Unknown Date of Pneumonia Vaccine: Aug 26, 2015 Date of Influenza Vaccine: May 14, 2018 Seasonal Allergies Seasonal Allergies: No Past Medical History Surgeries: No (UNKNOWN) Respiratory: Yes Pneumonia Cardiac: Yes (heart failure with lower extremity edema) Atrial Fibrillation, Cardiomyopathy, Hypertension Neurological: Yes (neuritis and neuralgia; dizziness) Genitourinary: Yes (current UTI) Gastrointestinal: Yes (ileus) Gastroesophageal Reflux, Liver Disease/Jaundice, Gastrointestinal Bleed, Hepatitis Musculoskeletal: Yes (generalized muscle weakness, unsteadiness on feet) Endocrine: Yes Diabetes, Non-Insulin dep HEENT: No Loss of Vision: Denies Hearing Impairment: Denies Cancer: No Psychosocial: Yes Anxiety, Depression Integumentary: No Blood Disorders: Yes (anemia) Family Medical History No Pertinent Family Hx Physical Exam Vital Signs Vital Signs - First Documented 06/01/19 16:46 Temp 37.6 Pulse 93 Resp 18 B/P (MAP) 136/68 (90) Pulse Ox 97 O2 Delivery Room Air Capillary Refill : Less Than 3 Seconds General Appearance: WD/WN, no apparent distress HEENT: PERRL/EOMI, normal ENT inspection Neck: non-tender, full range of motion Respiratory: no respiratory distress, no accessory muscle use Gastrointestinal: normal bowel sounds, non tender Neurologic/Psychiatric: alert, normal mood/affect, oriented x 3 Skin: normal color, warm/dry Skin Problem Character: other (EXCORIATION/MACERATION TO INGUINAL FOLDS BILATERALLY. ) Lymphatic: other (there is a quarter sized area of rather shallow ulceration to the lateral aspect of the forefoot on the right. There is no surrounding erythema to suggest cellulitis.) Progress/Results/Core Measures Results/Orders Lab Results Laboratory Tests Test 06/01/19 17:24 06/01/19 19:02 Range/Units White Blood Count 12.9 H 4.3-11.0 10^3/uL Red Blood Count 3.62 L 4.35-5.85 10^6/uL Hemoglobin 12.4 L 13.3-17.7 G/DL Hematocrit 35 L 40-54 % Mean Corpuscular Volume 96 80-99 FL Mean Corpuscular Hemoglobin 34 25-34 PG Mean Corpuscular Hemoglobin Concent 36 32-36 G/DL Red Cell Distribution Width 13.1 10.0-14.5 % Platelet Count 297 130-400 10^3/uL Mean Platelet Volume 9.3 7.4-10.4 FL Neutrophils (%) (Auto) 76 H 42-75 % Lymphocytes (%) (Auto) 13 12-44 % Monocytes (%) (Auto) 10 0-12 % Eosinophils (%) (Auto) 1 0-10 % Basophils (%) (Auto) 0 0-10 % Neutrophils # (Auto) 9.7 H 1.8-7.8 X 10^3 Lymphocytes # (Auto) 1.7 1.0-4.0 X 10^3 Monocytes # (Auto) 1.3 H 0.0-1.0 X 10^3 Eosinophils # (Auto) 0.2 0.0-0.3 10^3/uL Basophils # (Auto) 0.0 0.0-0.1 10^3/uL Prothrombin Time 26.7 H 12.2-14.7 SEC INR Comment 2.3 H 0.8-1.4 Activated Partial Thromboplast Time 61 H 24-35 SEC Sodium Level 133 L 135-145 MMOL/L Potassium Level 5.2 H 3.6-5.0 MMOL/L Chloride Level 97 L 98-107 MMOL/L Carbon Dioxide Level 22 21-32 MMOL/L Anion Gap 14 5-14 MMOL/L Blood Urea Nitrogen 6 L 7-18 MG/DL Creatinine 0.68 0.60-1.30 MG/DL Estimat Glomerular Filtration Rate > 60 BUN/Creatinine Ratio 9 Glucose Level 153 H 70-105 MG/DL Calcium Level 8.9 8.5-10.1 MG/DL Corrected Calcium 9.5 8.5-10.1 MG/DL Magnesium Level 1.4 L 1.6-2.4 MG/DL Total Bilirubin 0.4 0.1-1.0 MG/DL Aspartate Amino Transf (AST/SGOT) 30 5-34 U/L Alanine Aminotransferase (ALT/SGPT) 26 0-55 U/L Alkaline Phosphatase 183 H 40-136 U/L Total Protein 6.5 6.4-8.2 GM/DL Albumin 3.2 3.2-4.5 GM/DL Serum Alcohol 13 H <10 MG/DL Urine Color YELLOW Urine Clarity CLEAR Urine pH 6.5 5-9 Urine Specific Kerrick 1.010 L 1.016-1.022 Urine Protein 1+ H NEGATIVE Urine Glucose (UA) NEGATIVE NEGATIVE Urine Ketones NEGATIVE NEGATIVE Urine Nitrite NEGATIVE NEGATIVE Urine Bilirubin NEGATIVE NEGATIVE Urine Urobilinogen NORMAL NORMAL MG/DL Urine Leukocyte Esterase 3+ H NEGATIVE Urine RBC (Auto) 1+ H NEGATIVE Urine RBC 0-2 /HPF Urine WBC 2-5 /HPF Urine Squamous Epithelial Cells 2-5 /HPF Urine Crystals NONE /LPF Urine Bacteria TRACE /HPF Urine Casts NONE /LPF Urine Mucus NEGATIVE /LPF Urine Yeast FEW H /HPF Urine Culture Indicated NO My Orders Orders - SERAFIN BOONE INFRASTRUCTURE PROJECT MANAGER Cbc With Automated Diff (06/01/19 16:55) Comprehensive Metabolic Panel (06/01/19 16:55) Ua Culture If Indicated (06/01/19 17:57) Chest 1 View, Ap/Pa Only (06/01/19 19:15) Protime With Inr (06/01/19 19:27) Partial Thromboplastin Time (06/01/19 19:27) Alcohol (06/01/19 19:27) Magnesium (06/01/19 19:27) Potassium Chloride (Tablet) (Klor Con Ta (06/01/19 19:45) Magnesium Oxide Tablet (Mag Ox Tablet) (06/01/19 19:45) Vital Signs/I&O 06/01/19 16:46 Temp 37.6 Pulse 93 Resp 18 B/P (MAP) 136/68 (90) Pulse Ox 97 O2 Delivery Room Air Blood Pressure Mean: 90 Diagnostic Imaging Diagonstic Imaging: Xray Plain Films/CT/US/NM/MRI: chest Comments NAME: MACHO MAIER MED REC#: [id number] PT STATUS: REG ER : 1945 PHYSICIAN: SERAFIN BOONE APRN ADMIT DATE: 06/01/19/ER Signed Date of Exam:06/01/19 CHEST 1 VIEW, AP/PA ONLY Indication: Immunosuppression Portable chest 7:21 PM Heart size and pulmonary vascularity are normal. Lungs are clear. There are no effusions or pneumothoraces. IMPRESSION: Negative chest Dictated by: Dictated on workstation # [id number] Dict: 06/01/191926 Trans: 06/01/191927 [id number] Interpreted by: HARDEEP RUIZ MD Electronically signed by: HARDEEP RUIZ MD 06/01/191927 Departure Communication (Admissions) Time/Spoke to Admitting Phy: 18:[address] Landeros who agrees to admit, I've also spoken with the patient's niece Chantal and Anuja, both very frustrated with the "run around" they've been receiving but were very appreciative pleasant on the phone.. They were repo rtedly told today by social work/risk management that if he presented to the emergency room tonight he could be readmitted, this may simply be a misunderstanding. Either way, this plan was not relayed to us in ER. Pt is unable to care for self at home, drinks wine every day. He'd prefer to go home. However after much deliberation the patient finally agrees to be admitted since he cannot adequately care for self at home, he would agree at this point in time to receive some usp for several weeks potentially in a snf if that's what was necessary. I'll admit him to Dr. Landeros who was most gracious and agreed to admit, will put him on CIWA protocol and consult social worker school tomorrow for further arrangements. Nurse asked patient for a urine, he refused, asked patient if she could do a straight catheter, he also refused, she then sat the head of his bed up and he replied "FUCK YOU" to her. Impression Primary Impression: Intertrigo Additional Impressions: Alcoholism inability to care for self Wound of right foot Penile edema Disposition: 01 HOME, SELF-CARE Condition: Stable Admissions Decision to Admit Reason: Admit from ER (General) Decision to Admit/Date: Jun 01, 2019 Time/Decision to Admit Time: 19:24 Departure-Patient Inst. Referrals: MALISSA GARRETT MD (PCP/Family) Primary Care Physician Add. Discharge Instructions: 1. Continue the antibiotics that Stephanie. At the topical antifungal cream twice daily for 14 days. All discharge instructions reviewed with patient and/or family. Voiced understanding. Scripts Clotrimazole (Clotrimazole) 15 Gm Cream..g. 2 GM TP BID for 14 Days, #2 TUBE Prov: SERAFIN BOONE APRN 06/01/19 SERAFIN BOONE APRN Jun 01, 2019 17:04
--- NOTE | 2019-06-01 17:25 | NUR ---
Kemar from lab in room to draw blood at this time.
[2019-06-01 17:30] LABS: BASOPHILS % (AUTO) 0 % (0-10); EOSINOPHILS # (AUTO) 0.2 10^3/uL (0.0-0.3); EOSINOPHILS % (AUTO) 1 % (0-10); HEMATOCRIT 35 % (40-54); HEMOGLOBIN 12.4 G/DL (13.3-17.7); LYMPHOCYTES # (AUTO) 1.7 X 10^3 (1.0-4.0); LYMPHOCYTES % (AUTO) 13 % (12-44); MEAN CORPUSCULAR HEMOGLOBIN 34 PG (25-34); MEAN CORPUSCULAR HGB CONC 36 G/DL (32-36); MEAN CORPUSCULAR VOLUME 96 FL (80-99); MEAN PLATELET VOLUME 9.3 FL (7.4-10.4); MONOCYTES # (AUTO) 1.3 X 10^3 (0.0-1.0); MONOCYTES % (AUTO) 10 % (0-12); NEUTROPHILS # (AUTO) 9.7 X 10^3 (1.8-7.8); NEUTROPHILS % (AUTO) 76 % (42-75); PLATELET COUNT 297 10^3/uL (130-400); RED CELL DISTRIBUTION WIDTH 13.1 % (10.0-14.5); WHITE BLOOD COUNT 12.9 10^3/uL (4.3-11.0)
[2019-06-01 17:52] LABS: ALANINE AMINOTRANSFERASE 26 U/L (0-55); ALBUMIN 3.2 GM/DL (3.2-4.5); ALKALINE PHOSPHATASE 183 U/L (40-136); BILIRUBIN,TOTAL 0.4 MG/DL (0.1-1.0); BUN/CREATININE RATIO 9; CALCIUM 8.9 MG/DL (8.5-10.1); CARBON DIOXIDE 22 MMOL/L (21-32); CHLORIDE 97 MMOL/L (98-107); CREATININE SERUM 0.68 MG/DL (0.60-1.30); GFR ESTIMATED > 60; GLUCOSE 153 MG/DL (70-105); POTASSIUM 5.2 MMOL/L (3.6-5.0); SODIUM 133 MMOL/L (135-145); TOTAL PROTEIN 6.5 GM/DL (6.4-8.2)
[2019-06-01] MEDS ORDERED: CLOT15CR5 TP (18:18)
--- NOTE | 2019-06-01 18:53 | NUR ---
Dr. Muñoz and Julita Lundy in room at this time, talking with pt.
[2019-06-01 19:10] LABS: BILIRUBIN,URINE NEGATIVE (NEGATIVE); CLARITY,URINE CLEAR; COLOR,URINE YELLOW; GLUCOSE, URINE (UA) NEGATIVE (NEGATIVE); KETONES,URINE NEGATIVE (NEGATIVE); LEUKOCYTE ESTERASE ,URINE 3+ (NEGATIVE); NITRITE,URINE NEGATIVE (NEGATIVE); PH,URINE 6.5 (5-9); PROTEIN,URINE 1+ (NEGATIVE); UROBILINOGEN,URINE NORMAL (NORMAL)
[2019-06-01 19:20] LABS: BACTERIA,URINE TRACE /HPF; RBC,URINE 0-2 /HPF
[2019-06-01 19:21] LABS: YEAST,URINE FEW /HPF
--- NOTE | 2019-06-01 19:29 | Diagnostic Imaging Report ---
Indication: Immunosuppression Portable chest 7:21 PM Heart size and pulmonary vascularity are normal. Lungs are clear. There are no effusions or pneumothoraces. IMPRESSION: Negative chest Dictated by: Dictated on workstation # [id number]
[2019-06-01 19:44] LABS: INR 2.3 (0.8-1.4); PROTHROMBIN TIME PATIENT 26.7 SEC (12.2-14.7)
[2019-06-01 19:50] LABS: MAGNESIUM 1.4 MG/DL (1.6-2.4)
[2019-06-01] MEDS: KCL 10 MEQ TAB (MICRO K) PO ONE ×2 (19:53→19:55)
[2019-06-01] MEDS: MAGNESIUM OXIDE (MAG-OX)400 MG TAB PO ONE ×2 (19:54→19:55)
[2019-06-01] MEDS ORDERED: LORazepam INJ 2 MG/ML (ATIVAN) VIAL IVP PRN (20:15)
[2019-06-01] MEDS ORDERED: NYSTATIN CREAM (MYCOSTATIN) 30 GM TUBE TP ONE (20:19)
[2019-06-01] MEDS ORDERED: LIDOCAINE UROJET 2% GEL 10 ML PKG ONE (21:00)
[2019-06-01] MEDS ORDERED: NYSTATIN CREAM (MYCOSTATIN) 30 GM TUBE TP SCH (21:00)
[2019-06-01 22:42] VITALS: BP 138/86
[2019-06-01] MEDS ORDERED: 1/2 NS IV SOLUTION 1,000 ML IV PRN (23:05)
[2019-06-01] MEDS ORDERED: D5 1/2 NS 1000 ML IV SOLUTION 1,000 ML IV PRN (23:15)
[2019-06-01] MEDS ORDERED: LORazepam INJ 2 MG/ML (ATIVAN) VIAL IV PRN (23:15)
[2019-06-01] MEDS ORDERED: LORazepam INJ 2 MG/ML (ATIVAN) VIAL IM/IV PRN (23:15)
[2019-06-01] MEDS ORDERED: ONDANSETRON 4 MG (ZOFRAN) ORAL DISSOLVE TAB SL PRN (23:15)
[2019-06-01] MEDS ORDERED: fentaNYL INJECTION 100 MCG/2 ML AMP IV PRN (23:15)
[2019-06-01] MEDS ORDERED: ONDANSETRON 4 MG/2 ML (SDV) Z0FRAN IV PRN (23:15)
[2019-06-01] MEDS ORDERED: SENNA W/DOCUSATE (SENOKOT S) TABLET PO PRN (23:15)
[2019-06-01] MEDS ORDERED: ANTACID SUSP 30 ML UDC (MYLANTA) PO PRN (23:15)
[2019-06-01] MEDS: DOXYCYCLINE 100 MG (VIBRAMYCIN) TABLET PO SCH (23:51)
[2019-06-01] MEDS: D5 1/2 NS 1000 ML IV SOLUTION 1,000 ML IV SCH (23:52)
[2019-06-02] MEDS: LORazepam 1 MG (ATIVAN) TAB PO PRN (00:01)
[2019-06-02 00:41] VITALS: BP 151/79
[2019-06-02] MEDS: NS IV 1000 ML 1,000 ML IV SCH ×2 (03:32→10:32)
[2019-06-02 04:25] VITALS: BP 148/85
[2019-06-02] MEDS: inSUlin ASPART (NovoLOG) 1 UNIT/0.01 ML (CHARGE PER UNIT) SC SCH ×4 (05:42→21:04)
[2019-06-02 06:38] LABS: BASOPHILS % (AUTO) 0 % (0-10); EOSINOPHILS # (AUTO) 0.1 10^3/uL (0.0-0.3); EOSINOPHILS % (AUTO) 2 % (0-10); HEMATOCRIT 34 % (40-54); HEMOGLOBIN 11.7 G/DL (13.3-17.7); LYMPHOCYTES # (AUTO) 1.5 X 10^3 (1.0-4.0); LYMPHOCYTES % (AUTO) 17 % (12-44); MEAN CORPUSCULAR HEMOGLOBIN 34 PG (25-34); MEAN CORPUSCULAR HGB CONC 35 G/DL (32-36); MEAN CORPUSCULAR VOLUME 97 FL (80-99); MEAN PLATELET VOLUME 9.3 FL (7.4-10.4); MONOCYTES # (AUTO) 0.8 X 10^3 (0.0-1.0); MONOCYTES % (AUTO) 9 % (0-12); NEUTROPHILS # (AUTO) 6.6 X 10^3 (1.8-7.8); NEUTROPHILS % (AUTO) 73 % (42-75); PLATELET COUNT 259 10^3/uL (130-400); RED CELL DISTRIBUTION WIDTH 13.2 % (10.0-14.5); WHITE BLOOD COUNT 9.1 10^3/uL (4.3-11.0)
[2019-06-02 06:55] LABS: ALANINE AMINOTRANSFERASE 25 U/L (0-55); ALBUMIN 2.9 GM/DL (3.2-4.5); ALKALINE PHOSPHATASE 165 U/L (40-136); BILIRUBIN,TOTAL 0.9 MG/DL (0.1-1.0); BUN/CREATININE RATIO 8; CALCIUM 8.3 MG/DL (8.5-10.1); CARBON DIOXIDE 24 MMOL/L (21-32); CHLORIDE 97 MMOL/L (98-107); CREATININE SERUM 0.64 MG/DL (0.60-1.30); GFR ESTIMATED > 60; GLUCOSE 128 MG/DL (70-105); POTASSIUM 4.4 MMOL/L (3.6-5.0); SODIUM 131 MMOL/L (135-145); TOTAL PROTEIN 5.8 GM/DL (6.4-8.2)
[2019-06-02] MEDS: D5 1/2 NS 1000 ML IV SOLUTION 1,000 ML IV SCH (07:43)
[2019-06-02 08:00] VITALS: BP 130/67
[2019-06-02] MEDS: THIAMINE INJECTION 100 MG, FOLIC ACID INJECTION 1 MG, MAGNESIUM SULFATE 2 GM, VITAMIN M... IV SCH ×5 (08:23)
[2019-06-02] MEDS: PANTOPRAZOLE 40 MG (PROTONIX) VIAL IV SCH (08:24)
[2019-06-02] MEDS: DOXYCYCLINE 100 MG (VIBRAMYCIN) TABLET PO SCH ×2 (08:24→20:16)
[2019-06-02] MEDS: NYSTATIN CREAM (MYCOSTATIN) 30 GM TUBE TP SCH ×3 (08:27→20:17)
[2019-06-02] MEDS: NICOTINE 21 MG (NICODERM) PATCH TD SCH (08:28)
[2019-06-02] MEDS: ENOXAPARIN 40 MG/0.4 ML (LOVENOX) SYR SC SCH (10:31)
--- NOTE | 2019-06-02 10:59 | Physical Therapy Evaluation ---
PT Evaluation-General Medical Diagnosis Admission Date Jun 01, 2019 at 19:21 Medical Diagnosis: generalized weakness/right foot wound Onset Date: Jun 01, 2019 Therapy Diagnosis Therapy Diagnosis: debility/weakness Height/Weight Height (Feet): 5 Height (Inches): 11.00 Weight (Pounds): 179 Weight (Ounces): 9.0 Precautions Precautions/Isolations: Fall Prevention, Standard Precautions Referral Physician: Leti Reason for Referral: Evaluation/Treatment Medical History Pertinent Medical History: Atrial Fib, Alcoholism, DM, GERD, HTN, Smoking Additional Medical History hepatitis Current History EMS with c/o yeast infection of sacrum and iglesia area and inability to care for self Reviewed History: Yes Social History Home: Single Level Current Living Status: Alone Prior Prior Level of Function SCALE: Activities may be completed with or without assistive devices. 3-Qqgnkcnpbt-yjjwssc completes the activity by him/herself with no assistance from a helper. 5-Set-up or Clean-up Assistance-helper sets up or cleans up; patient completes activity. [place]ber[place] assists only prior to or following the activity. 4-Supervision or Touching Assistance-helper provides verbal cues and/or touching/steadying and/or contact guard assistance as patient completes activity. Assistance may be provided throughout the activity or intermittently. 3-Partial/Moderate Assistance-helper does LESS THAN HALF the effort. Narberth lifts, holds or supports trunk or limbs, but provides less than half the effort. 2-Substantial/Maximal Assistance-helper does MORE THAN HALF the effort. [place] lifts or holds trunk or limbs and provides more than half the effort. 8-Ndqudyuzr-yhchdh does ALL the effort. Patient does none of the effort to complete the activity. Or, the assistance of 2 or more helpers is required for the patient to complete the activity. If activity was not attempted, code reason: 7-Patient Refused. 9-Not Applicable-not attempted and the patient did not perform the activity before the current illness, exacerbation or injury. 10-Not Attempted due to Environmental Limitations-(lack of equipment, weather restraints, etc.). 88-Not Attempted due to Medical Conditions or Safety Concerns. Bed Mobility: 5 Transfers (B,C,W/C): 5 Gait: 5 Prior Devices Use: Walker PT Evaluation-Current Subjective Patient reluctantly agrees to PT. Pain Numeric Pain Scale: 5-Moderate Pain Location: Soft Tissue Location Body Site: Genital Pain Description: Burning Objective Patient Orientation: Normal For Age Problem Solving: Poor Attachments: Gleason Catheter, IV ROM/Strength ROM Lower Extremities bilateral LE WFL Strength Lower Extremities 3-/5 grossly bilateral LE Integumentary/Posture Integumentary noted edema and redness genital region and bilateral LE Bladder Incontinence: Gleason Cath Posture WFL Neuromuscular (Tone, Coordination, Reflexes) noted tremor right UE/diminished coordination Sensory Vision: Functional Hearing: Functional Sensation Right Lower Extremit: Impaired Sensation Left Lower Extremity: Impaired Transfers Roll Left to Right (QC): 4 Sit to Lying (QC): 4 Lying to Sitting/Side of Bed(Q: 4 Sit to Stand (QC): 4 Chair/Dzo-ve-Zmuwg Xfer(QC): 4 Gait Does the Patient Walk?: Yes Mode of Locomotion: Walk Anticipated Mode of Locomotion: Walk Distance (FIM): 1=up to 49 ft Walk 10 feet (QC): 4 Walk 50 ft with 2 Turns(QC): 88 Walk 150 ft (QC): 88 Walking 10ft/uneven surface-QC: 10 Gait Assistive Device: FWW Comments/Gait Description noted right LE lag with shuffle gait sequence Balance Sitting Static: Fair Sitting Dynamic: Fair Standing Static: Fair Standing Dynamic: Fair Assessment/Needs 73 y.o. male, will benefit from skilled PT to address functional strength and mobility to improve current LOF. Per physician, patient will benefit from custodial due to inability to care for self at home. Rehab Potential: Guarded Post Rehab Potential-Barriers: compliance PT Custodial Goals Methods And Procedures Analyst Goals PT Methods And Procedures Analyst Goals Time Frame: Jun 20, 2019 Sit to Lying (QC): 5 Lying-Sitting on Side/Bed(QC): 5 Sit to Stand (QC): 5 Roll Left to Right (QC): 5 Chair/Cmm-en-Unbap Xfer(QC): 5 Car Transfer (QC): 5 Does the Patient Walk: Yes Distance: 150' Walk 10 feet (QC): 5 Walk 10ft-Uneven Surface(QC): 5 Walk 50ft with 2 Turns (QC): 5 Walk 150 ft (QC): 5 Gait Assistive Device: FWW PT Plan Problem List Problem List: Activity Tolerance, Functional Strength, Safety, Balance, Gait, Transfer, Bed Mobility Treatment/Plan Treatment Plan: Continue Plan of Care Treatment Plan: Bed Mobility, Education, Functional Activity Mushtaq, Functional Strength, Gait, Safety, Transfers Treatment Duration: Jun 20, 2019 Frequency: 6 times per week Estimated Hrs Per Day: .25 hour per day Patient and/or Family Agrees t: Yes Discharge Recommendations Therapy Discharge Recommendati: Other, See Comments (custodial facility) Time/GCodes Time In: 900 Time Out: 921 Total Billed Treatment Time: 21 Total Billed Treatment 1 visit EVModC 21 min FIORELLA CHAVEZ PT Jun 02, 2019 10:59
[2019-06-02] MEDS ORDERED: inSUlin ASPART (NovoLOG) 1 UNIT/0.01 ML (CHARGE PER UNIT) SC SCH (11:00)
--- NOTE | 2019-06-02 11:05 | History & Physical-Hospitalist ---
[facility] 06/02/19 1105: History of Present Illness HPI/Chief Complaint Pt presents with a diabetic foot ulcer and anogenital skin infection that have been present for about 1 week. He was discharged on May.26 to home with home healthcare assistance. He states he was brought back to the hospital for a wound check, and readmitted after the appointment. He reports that the cream for the anogenital infection has helped a lot, but is unsure of the progress on his foot ulcer. 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 He appears in significant stress/pain from these intermittent attacks. He was unable to care for himself at home even with some assistnace from home health, and likely will need some long-term after this stay in order to fully recover from his infections. Source: patient Exam Limitations: no limitations Date Seen 06/02/19 Time Seen by a Provider: 10:13 Attending Physician Miri Landeros Pankaj K MD Referring Physician Date of Admission Jun 01, 2019 at 19:21 Home Medications & Allergies Home Medications Reviewed patient Home Medication Reconciliation performed by pharmacy medication reconciliations water technician and/or nursing. Patients Allergies have been reviewed. Allergies Allergies Coded Allergies No Known Drug Allergies (Unverified10/25/17) Past Exbuirk-Gztvow-Trxlbr Hx Patient Social History Marrital Status: Alcohol Use: Regular Use Number of Drinks Today: HH Alcohol Beverage of Choice: Whiskey, Wine Recreational Drug Use: No Smoking Status: Current Everyday Smoker Type Used: Cigars 2nd Hand Smoke Exposure: Yes Recent Foreign Travel: No Contact w/other who traveled: No Recent Hopitalizations: No Recent Infectious Disease Expo: No Immunizations Up To Date Tetanus Booster (TDap): Unknown Date of Pneumonia Vaccine: Aug 26, 2015 Date of Influenza Vaccine: May 26, 2019 Seasonal Allergies Seasonal Allergies: No Past Medical History Surgeries: Orthopedic (Right lower leg pins place, left lower leg broken unsure if any hardware ), Tonsillectomy Cardiac: Atrial Fibrillation, Cardiomyopathy, Hypertension Gastrointestinal: Gastroesophageal Reflux, Liver Disease/Jaundice, Gastrointestinal Bleed, Hepatitis Endocrine: Diabetes, Non-Insulin dep Loss of Vision: Denies Hearing Impairment: Denies Psychosocial: Anxiety, Depression History of Blood Disorders: Yes (anemia) Family History Diabetes mellitus G8 BROTHER FH: testicular cancer 19 FATHER Unknown cancer 19 MOTHER No Pertinent Family Hx Review of Systems Constitutional: chills; No dizziness, No fever EENTM: ear pain (Bilaterally intermittent minor), nose congestion; No blurred vision, No double vision, No vision loss Respiratory: No cough, No short of breath Cardiovascular: No chest pain; palpitations Gastrointestinal: No abdominal pain, No constipation, No diarrhea Genitourinary: dysuria, pain Musculoskeletal: No joint swelling, No neck pain Skin: lesions, rash (Anogenital ) Psychiatric/Neurological: Numbness (Distal hands right more significant), Paresthesia, Tremors (Bilateral hands) Physical Exam Physical Exam Vital Signs Vital Signs - First Documented 06/01/19 16:46 Temp 37.6 Pulse 93 Resp 18 B/P (MAP) 136/68 (90) Pulse Ox 97 O2 Delivery Room Air Capillary Refill : Less Than 3 Seconds Height, Weight, BMI Height: 5'11.00" Weight: 179lbs. 9.0oz. 81.129048nu; 27.98 BMI Method:Estimated General Appearance: WD/WN, Mild Distress Eyes: Bilateral Eye Normal Inspection, Bilateral Eye PERRL, Bilateral Eye EOMI HEENT: PERRL/EOMI, Moist Mucous Membranes Neck: Full Range of Motion, Non Tender, Supple Respiratory: Chest Non Tender, Lungs Clear, Normal Breath Sounds, No Respiratory Distress Cardiovascular: Regular Rate, Rhythm, No Gallop, No Murmur, Other (Peripheral edema right leg) Back: Normal Inspection, No CVA Tenderness, No Vertebral Tenderness Extremity: Normal Range of Motion, Pedal Edema (Right), Other (Ulcer on plantar surface of right foot) Neurologic/Psychiatric: Alert, Oriented x3, Normal Mood/Affect Skin: Normal Color, Warm/Dry Results Results/Procedures Labs Laboratory Tests 06/01/19 17:24 06/02/19 06:30 Patient resulted labs reviewed. Assessment/Plan Admission Diagnosis Diabetic foot ulcer, anogenital fungal infection, diabetes, hypertension, unable to care for self, Assessment and Plan Assessment: Diabetic foot ulcer, Infection of anogenital region Diabetes Anemia, Dehydration, Hypocalcemia Alcohol abuse Plan: Manage diabetes NovoLog sliding scale Continue Nystatin cream to anogenital infection Continue gabapentin for neuropathic pain Alcohol withdrawal procedures, Ativan Monitor hypocalcemia, redraw labs in AM Clinical Quality Measures DVT/VTE Risk/Contraindication: Risk Factor Score Per Nursin RFS Level Per Nursing on Admit: 4+=Very High MIRI LANDEROS DO 06/02/192025: History of Present Illness HPI/Chief Complaint Chief complaint: Generalized weakness HPI: This is a 73yoWM alcoholic clinic Pt of Dr. Salas who was in the hospital last week for right foot wound, insisted on going home, private caregivers arranged but he seems to be struggling with maintaining his status at home, was brought to the ER after multiple phone calls from the daughters who live in [facility] about his welfare. Apparently he has failed oral antibiotics, will be placed inpatient status with PT and OT evaluation and will be in the midst of [place]ing [place] [facility] [place]. He does have a history of alcoholism, his blood-alcohol level was 18 when admitted, will place him on detox protocol and Pt reporting that he is not convinced he wants to go into a [place] [facility] [place] facility. Will consult social work. Past Dvtutim-Tyvicg-Ifqjwk Hx Past Med/Social Hx: Reviewed Nursing Past Med/Soc Hx, Reviewed and Corrections made Patient Social History Marrital Status: Family History Diabetes mellitus G8 BROTHER FH: testicular cancer 19 FATHER Unknown cancer 19 MOTHER Review of Systems Constitutional: see HPI Psychiatric/Neurological: See HPI Physical Exam Physical Exam General Appearance: No Apparent Distress, WD/WN, Anxious, Chronically ill Respiratory: Lungs Clear Cardiovascular: Regular Rate, Rhythm Neurologic/Psychiatric: Alert, Oriented x3 Skin: Other (right foot wound dressing in place) Assessment/Plan Admission Diagnosis Assessment: Right foot ulcer Cellulitis ETOHism Unable to care for self Plan: PO abx Monitor closely Admission Status: Inpatient Order (span 2 midnights) Reason for Inpatient Admission: Failed PO abx, ETOHism with withdrawal Diagnosis/Problems Diagnosis/Problems (1) Wound of right foot (2) Generalized weakness (3) Intertrigo (4) Alcoholism Status: Acute (5) Hyponatremia Status: Resolved Resolution Date/Time: 05/27/19 @ 14:00 (6) Alcohol abuse Status: Chronic (7) Current smoker Status: Chronic Supervisory-Addendum Brief Verification & Attestation Participated in pt care: history, MDM, physical Personally performed: exam, history, MDM, supervision of care Care discussed with: Medical Student Procedures: n/a Results interpretation: Verified all documentation Verification and Attestation of Medical Student E/M Service A medical student performed and documented this service in my presence. I reviewed and verified all information documented by the medical student and made modifications to such information, when appropriate. I personally performed the physical exam and medical decision making. Miri Landeros, Jun 02, 2019,20:26 [facility] Jun 02, 2019 11:05 MIRI LANDEROS DO Jun 02, 2019 20:26
[2019-06-02] MEDS ORDERED: SULF-222 PO (11:32)
--- NOTE | 2019-06-02 11:34 | NUR ---
PATIENT WAS RECENTLY ADMITTED AND DISCHARGED. HE IS UNABLE TO ANSWER QUESTIONS ABOUT HIS MEDICATIONS. SINCE I DID HIS MED REC ON 05-26-19 [facility] HAS ONLY FILLED AUGMENTIN 875MG BID X 10 DAYS ON 05-27-19 AND [facility] FILLED BACTRIM BID X 10 DAYS ON 05-27-19. BOTH PHARMACIES STATE BOTH SCRIPTS WERE PICKED UP. WHEN I ASKED THE PATIENT IF HE IS TAKING BOTH HE DOES NOT SEEM TO KNOW HE WAS RECENTLY PRESCRIBED ANTIBIOTICS. I PUT THEM BOTH ON THE MED REC AT THIS TIME AND LEFT ALL OTHER MEDICATIONS THEY WERE PREVIOUSLY REPORTED. SEE NOTES ON PREVIOUS ACCOUNT FOR DETAILS.
[2019-06-02 12:00] VITALS: BP 144/61
--- NOTE | 2019-06-02 15:16 | NUR ---
Pastoral care visit, pt asleep in chair.
[2019-06-02 16:23] VITALS: BP 146/72
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
--- NOTE | 2019-06-02 19:24 | Wound Care Assessment ---
Wound Care Assessment Date Seen by Provider: Jun 02, 2019 Time Seen by Provider: 18:30 Chief Complaint R foot ulcer. HPI The patient is a 73 year old male with a Garza Grade 2 DFU of the R 5th submet and cellulitis, readmitted for recurrent infection. The ulcer appears unchanged from previous admission. Dakin's dressings ordered. He should be continued on oral antibiotics at discharge. Will follow-up in Wound Clinic. Past Medical History: Admits Diabetes Type II, Admits Heart Disease (Cardi omyopathy with CHF, Atrial Fib, pneumonia, lymphedema) Smoking Status: Current Everyday Smoker Recreational Drug Use: No Alcohol Use: Regular Use Review of Systems Pulmonary: No Dyspnea Cardiovascular: No: Chest Pain Neurological: Confusion (does not believe he is in the hospital.) Exam Vital Signs Date Time Temp Pulse Resp B/P (MAP) Pulse Ox O2 Delivery O2 Flow Rate FiO2 06/02/19 16:23 36.9 92 20 146/72 (96) 97 Room Air Capillary Refill : Less Than 3 SecondsLess Than 3 Seconds General Appearance: mild distress HEENT: normal ENT inspection Neck: normal inspection Respiratory: no respiratory distress Extremities: other (R 5th MTH -- 1.8 x 2.1 x 0.3 cm, 50% slough, 50% granulation, mod. s.s. drainage.) Results Laboratory Tests 06/02/19 05:26: Glucometer 139H 06/02/19 06:30: White Blood Count 9.1, Red Blood Count 3.47L, Hemoglobin 11.7L, Hematocrit 34L, Mean Corpuscular Volume 97, Mean Corpuscular Hemoglobin 34, Mean Corpuscular Hemoglobin Concent 35, Red Cell Distribution Width 13.2, Platelet Count 259, Mean Platelet Volume 9.3, Neutrophils (%) (Auto) 73, Lymphocytes (%) (Auto) 17, Monocytes (%) (Auto) 9, Eosinophils (%) (Auto) 2, Basophils (%) (Auto) 0, Neutrophils # (Auto) 6.6, Lymphocytes # (Auto) 1.5, Monocytes # (Auto) 0.8, Eosinophils # (Auto) 0.1, Basophils # (Auto) 0.0, Sodium Level 131L, Potassium Level 4.4, Chloride Level 97L, Carbon Dioxide Level 24, Anion Gap 10, Blood Urea Nitrogen 5L, Creatinine 0.64, Estimat Glomerular Filtration Rate > 60, BUN/Creatinine Ratio 8, Glucose Level 128H, Calcium Level 8.3L, Corrected Calcium 9.2, Total Bilirubin 0.9, Aspartate Amino Transf (AST/SGOT) 26, Alanine Aminotransferase (ALT/SGPT) 25, Alkaline Phosphatase 165H, Total Protein 5.8L, Albumin 2.9L 06/02/19 10:31: Glucometer 170H 06/02/19 15:55: Glucometer 196H Assessment/Plan/Dx 1. R 5th MTH Garza Grade 2 diabetic ulcer. 2. Cardiomyopathy, CHF, refractory lymphedema. 3. Korsakoff syndrome Plan: Dakin's dressings, Jacky's Butt paste to perineum. Will follow-up patient in Wound Clinic. Out of town until 06/08/19. ERAN BURTON MD Jun 02, 2019 19:24
[2019-06-02 19:50] VITALS: BP 157/78
[2019-06-02] MEDS: ZINC OXIDE 16% OINT (BUTT PASTE) 113 GM TUBE TOP SCH (20:16)
[2019-06-02] MEDS ORDERED: NON-FORMULARY MEDICATION 1 EA EA (Pregabalin (Lyrica) 50 MG) PO SCH (21:00)
[2019-06-02] MEDS: GABAPENTIN 300 MG (NEURONTIN) CAP PO SCH (21:46)
[2019-06-03 00:46] VITALS: BP 156/82
[2019-06-03] MEDS: NS IV 1000 ML 1,000 ML IV SCH ×2 (02:45→20:56)
[2019-06-03 04:30] VITALS: BP 170/81
[2019-06-03] MEDS: LORazepam 1 MG (ATIVAN) TAB PO PRN ×2 (05:46→22:44)
[2019-06-03] MEDS: KCL 20 MEQ TAB (K-DUR) PO SCH (05:46)
[2019-06-03] MEDS: inSUlin ASPART (NovoLOG) 1 UNIT/0.01 ML (CHARGE PER UNIT) SC SCH ×4 (05:47→22:18)
[2019-06-03 06:39] LABS: BASOPHILS # (AUTO) 0.1 10^3/uL (0.0-0.1); BASOPHILS % (AUTO) 1 % (0-10); EOSINOPHILS # (AUTO) 0.2 10^3/uL (0.0-0.3); EOSINOPHILS % (AUTO) 3 % (0-10); HEMATOCRIT 37 % (40-54); HEMOGLOBIN 12.5 G/DL (13.3-17.7); LYMPHOCYTES # (AUTO) 1.2 X 10^3 (1.0-4.0); LYMPHOCYTES % (AUTO) 14 % (12-44); MEAN CORPUSCULAR HEMOGLOBIN 34 PG (25-34); MEAN CORPUSCULAR HGB CONC 34 G/DL (32-36); MEAN CORPUSCULAR VOLUME 99 FL (80-99); MEAN PLATELET VOLUME 9.6 FL (7.4-10.4); MONOCYTES # (AUTO) 0.5 X 10^3 (0.0-1.0); MONOCYTES % (AUTO) 5 % (0-12); NEUTROPHILS # (AUTO) 6.7 X 10^3 (1.8-7.8); NEUTROPHILS % (AUTO) 78 % (42-75); PLATELET COUNT 229 10^3/uL (130-400); RED CELL DISTRIBUTION WIDTH 13.1 % (10.0-14.5); WHITE BLOOD COUNT 8.7 10^3/uL (4.3-11.0)
[2019-06-03 06:57] LABS: ALANINE AMINOTRANSFERASE 26 U/L (0-55); ALKALINE PHOSPHATASE 170 U/L (40-136); BUN/CREATININE RATIO 7; CALCIUM 8.2 MG/DL (8.5-10.1); CARBON DIOXIDE 24 MMOL/L (21-32); CHLORIDE 101 MMOL/L (98-107); GFR ESTIMATED > 60; GLUCOSE 151 MG/DL (70-105); SODIUM 133 MMOL/L (135-145); TOTAL PROTEIN 6.1 GM/DL (6.4-8.2)
[2019-06-03 08:00] VITALS: BP 158/80
[2019-06-03] MEDS ORDERED: NON-FORMULARY MEDICATION 1 EA EA (Diltiazem HCl (Cartia Xt) 240 MG) PO SCH (09:00)
[2019-06-03] MEDS: DIGOXIN 0.125 MG (LANOXIN) TAB PO SCH (09:00)
[2019-06-03] MEDS: FOLIC ACID 1 MG TAB PO SCH (09:00)
[2019-06-03] MEDS: ENOXAPARIN 40 MG/0.4 ML (LOVENOX) SYR SC SCH (09:00)
[2019-06-03] MEDS ORDERED: NON-FORMULARY MEDICATION 1 EA EA (Potassium Chloride 20 MEQ) PO SCH (09:00)
[2019-06-03] MEDS: PREGABALIN 50 MG (LYRICA) CAP PO SCH ×2 (09:00→20:54)
[2019-06-03] MEDS: DILTIAZEM 240 MG (CARDIZEM CD) CAP PO SCH (09:01)
[2019-06-03] MEDS: PANTOPRAZOLE 40 MG (PROTONIX) TAB PO SCH (09:01)
[2019-06-03] MEDS: lisINopril 10 MG (PRINIVIL) TABLET PO SCH (09:01)
[2019-06-03] MEDS: RIVAROXABAN 20 MG TABLET (XARELTO) PO SCH (09:01)
[2019-06-03] MEDS: GABAPENTIN 300 MG (NEURONTIN) CAP PO SCH ×3 (09:01→20:55)
[2019-06-03] MEDS: FUROSEMIDE 20 MG (LASIX) TAB PO SCH (09:01)
[2019-06-03] MEDS: DOXYCYCLINE 100 MG (VIBRAMYCIN) TABLET PO SCH ×2 (09:01→20:54)
[2019-06-03] MEDS: THIAMINE INJECTION 100 MG, FOLIC ACID INJECTION 1 MG, MAGNESIUM SULFATE 2 GM, VITAMIN M... IV SCH ×5 (09:03)
[2019-06-03] MEDS: NICOTINE 21 MG (NICODERM) PATCH TD SCH (09:11)
[2019-06-03] MEDS: ZINC OXIDE 16% OINT (BUTT PASTE) 113 GM TUBE TOP SCH ×3 (09:19→20:55)
[2019-06-03] MEDS: PANTOPRAZOLE 40 MG (PROTONIX) VIAL IV SCH (09:24)
[2019-06-03] MEDS: NYSTATIN CREAM (MYCOSTATIN) 30 GM TUBE TP SCH ×3 (09:24→20:55)
--- NOTE | 2019-06-03 11:13 | Physical Therapy Daily Note ---
PT Daily Note-Current Subjective Patient in bed pre tx, agrees to PT, has pain on his bottom, it is pretty red, nursing is aware and putting barrier cream on it. Appearance Patient in bed post tx with nurse call, phone, tray, bed alarm on and has telesitter. Mental Status Patient Orientation: Person, Confused Attachments: Gleason Catheter, IV Transfers SCALE: Activities may be completed with or without assistive devices. 4-Ebxprtdvkg-supibae completes the activity by him/herself with no assistance from a helper. 5-Set-up or Clean-up Assistance-helper sets up or cleans up; patient completes activity. [place] assists only prior to or following the activity. 4-Supervision or Touching Assistance-helper provides verbal cues and/or touching/steadying and/or contact guard assistance as patient completes activity. Assistance may be provided throughout the activity or intermittently. 3-Partial/Moderate Assistance-helper does LESS THAN HALF the effort. [place] lifts, holds or supports trunk or limbs, but provides less than half the effort. 2-Substantial/Maximal Assistance-helper does MORE THAN HALF the effort. [place] l ifts or holds trunk or limbs and provides more than half the effort. 3-Kbtlltkmm-acyyoi does ALL the effort. Patient does none of the effort to complete the activity. Or, the assistance of 2 or more helpers is required for the patient to complete the activity. If activity was not attempted, code reason: 7-Patient Refused. 9-Not Applicable-not attempted and the patient did not perform the activity before the current illness, exacerbation or injury. 10-Not Attempted due to Environmental Limitations-(lack of equipment, weather restraints, etc.). 88-Not Attempted due to Medical Conditions or Safety Concerns. Roll Left to Right (QC): 4 Sit to Lying (QC): 3 Sit to Stand (QC): 3 Chair/Www-cd-Wmkrd Xfer(QC): 4 min assist for sit to stand and supine <-> sit, SBA for bed mobility and CGA for transfers. Gait Training Distance: 20' Walk 10 feet (QC): 4 Gait Persons Needed: 1 Gait Assistive Device: FWW Patient ambulated 10' forward and 10' back, very shaky and unsteady but no LOB. Exercises Seated Therapy Exercises: Ankle pumps, Long arc quads Seated Reps: 15 Treatments bed mobility and transfers, ambulation, LE exercise Assessment Current Status: Fair Progress weak and shaky, confused PT System Administrator Goals System Administrator Goals PT Chcf Goals Time Frame: Jun 20, 2019 Sit to Lying (QC): 5 Lying-Sitting on Side/Bed(QC): 5 Sit to Stand (QC): 5 Roll Left to Right (QC): 5 Chair/Ccz-zg-Drpqi Xfer(QC): 5 Car Transfer (QC): 5 Does the Patient Walk: Yes Distance: 150' Walk 10 feet (QC): 5 Walk 10ft-Uneven Surface(QC): 5 Walk 50ft with 2 Turns (QC): 5 Walk 150 ft (QC): 5 Gait Assistive Device: FWW PT Plan Problem List Problem List: Activity Tolerance, Functional Strength, Safety, Balance, Gait, Transfer, Bed Mobility Treatment/Plan Treatment Plan: Continue Plan of Care Treatment Plan: Bed Mobility, Education, Functional Activity Mushtaq, Functional Strength, Gait, Safety, Transfers Treatment Duration: Jun 20, 2019 Frequency: 6 times per week Estimated Hrs Per Day: .25 hour per day Patient and/or Family Agrees t: Yes Safety Risks/Education Patient Education: Gait Training, Transfer Techniques, Correct Positioning, Safety Issues Teaching Recipient: Patient Teaching Methods: Demonstration, Discussion Response to Teaching: Reinforcement Needed Time/GCodes Time In: 1048 Time Out: 1106 Total Billed Treatment Time: 18 Total Billed Treatment 1 visit FA 18' ALEX JUAREZ PT Jun 03, 2019 11:13
--- NOTE | 2019-06-03 11:51 | Progress Note - Hospitalist ---
[facility] 06/03/19 1151: Subjective HPI/CC On Admission Date Seen by Provider: Jun 03, 2019 Time Seen by Provider: 07:20 Chief complaint: Generalized weakness HPI: This is a 73yoWM alcoholic clinic Pt of Dr. Salas who was in the hospital last week for right foot wound, insisted on going home, private caregivers arranged but he seems to be struggling with maintaining his status at home, was brought to the ER after multiple phone calls from the daughters who live in [place] about his welfare. Apparently he has failed oral antibiotics, will be placed inpatient status with PT and OT evaluation and will be in the midst of transitioning to longterm placement. He does have a history of alcoholism, his blood-alcohol level was 18 when admitted, will place him on detox protocol and Pt reporting that he is not convinced he wants to go into a longterm. Will consult social work. Subjective/Events-last exam Pt is complaining that his shooting neuropathy pains are strong and really bothersome. He states he did sleep very well last night and thinks it was a combination of the pain and not getting comfortable. He states the antifungal cream for his anogenital rash has been helping a lot and it has gotten better enough that he can adjust his body without the high pain level it was causing. He states the rash is not completely pain free, but is significantly better. He states his foot is still sore from that ulcer, but the pts main complaint is the neuropathic pain. He states he would really like to go home where he can have a cigar and drink a glass of wine. When I asked him about a nicotine patch he stated he refused that because he knows some people that went on the patch and shortly after starting it. I told him this was a nicotine patch to help with the cigar cravings not a pain medication patch and that from nicotine patch is very unlikely. He seemed like he did not quite understand what I was telling him and just refused to accept the patch. To which I told him was completely fine and his choice. He is very passive aggressive in his statements and would like to go home. Review of Systems Pulmonary: No Dyspnea, No Cough Gastrointestinal: No: Abdominal Pain, Diarrhea Focused Exam Respiratory: Chest Non Tender, Lungs Clear, Normal Breath Sounds, No Accessory Muscle Use, No Respiratory Distress Cardiovascular: Regular Rate, Rhythm, No Gallop, No Murmur Objective Exam Vital Signs Vital Signs Date Time Temp Pulse Resp B/P (MAP) Pulse Ox O2 Delivery O2 Flow Rate FiO2 06/03/19 08:00 38.7 106 20 158/80 (106) 97 Room Air Capillary Refill : Less Than 3 SecondsLess Than 3 Seconds General Appearance: WD/WN, Moderate Distress Neck: Full Range of Motion, Supple Respiratory: Chest Non Tender, Lungs Clear, Normal Breath Sounds, No Accessory Muscle Use, No Respiratory Distress Cardiovascular: Regular Rate, Rhythm, No Gallop, No Murmur Neurologic/Psychiatric: Alert, Oriented x3, Normal Mood/Affect (Mild aggitation) Skin: Normal Color, Warm/Dry Results/Procedures Lab Laboratory Tests 06/03/19 06:25 Patient resulted labs reviewed. Assessment/Plan Assessment and Plan Assess & Plan/Chief Complaint Assessment: Diabetic foot ulcer, Infection of anogenital region Diabetes Anemia, Dehydration, Hypocalcemia Alcohol abuse Tobacco abuse Plan: Manage diabetes NovoLog sliding scale Continue Nystatin cream to anogenital infection Continue gabapentin for neuropathic pain Alcohol withdrawal procedures, Ativan Monitor hypocalcemia, redraw labs in AM Consult wound care for diabetic ulcer Offer nicotine patch for withdrawal symptoms Clinical Quality Measures DVT/VTE Risk/Contraindication: Risk Factor Score Per Nursin RFS Level Per Nursing on Admit: 4+=Very High MIRI GOMEZ DO 06/03/19 1938: Subjective Subjective/Events-last exam Pt is doing okay Very sarcastic and cranky [facility] coming to assess him Fever noted but ulceration managed by Dr. Gomez likely the source White count is normal Catheter maintained Overall doing okay from a clinical standpoint but overall prognosis is pretty poor considering the long standing alcoholism and severe debility Review of Systems General: Fatigue Neurological: Confusion Objective Exam General Appearance: No Apparent Distress, WD/WN, Chronically ill Respiratory: Lungs Clear Cardiovascular: Regular Rate, Rhythm Extremity: Pedal Edema Neurologic/Psychiatric: Alert, No Motor/Sensory Deficits, Depressed Affect, Disoriented Assessment/Plan Assessment and Plan Assess & Plan/Chief Complaint Severe debility need NH placement Diagnosis/Problems Diagnosis/Problems (1) Wound of right foot Status: Acute (2) Hyponatremia Status: Resolved Resolution Date/Time: 05/27/19 @ 14:00 (3) Generalized weakness (4) Intertrigo (5) Alcoholism Status: Acute (6) Type 2 diabetes mellitus Status: Chronic (7) Alcohol abuse Status: Chronic (8) Current smoker Status: Chronic Supervisory-Addendum Brief Verification & Attestation Participated in pt care: history, MDM, physical Personally performed: exam, history, MDM, supervision of care Care discussed with: Medical Student Procedures: n/a Results interpretation: Verified all documentation Verification and Attestation of Medical Student E/M Service A medical student performed and documented this service in my presence. I reviewed and verified all information documented by the medical student and made modifications to such information, when appropriate. I personally performed the physical exam and medical decision making. Miri Gomez, Jun 03, 2019,19:38 [facility] Jun 03, 2019 11:51 MIRI GOMEZ DO Jun 03, 2019 19:38
[2019-06-03 12:00] VITALS: BP 130/65
[2019-06-03] MEDS ORDERED: ACETAMINOPHEN 325 MG TABLET PO PRN (12:00)
--- NOTE | 2019-06-03 12:29 | NUR ---
CM/SS, final discharge planning. [facility]. Will finalize when patient is medically stable for release. CARE Assessment pending, JUSTIN/Allyn will contact [facility] to confirm it remains current from his recent stay with [facility] earlier in 2019. Admin/Joseluis visited patient this a.m., packet provided. Updated patient's niece, Chantal Gray.
[2019-06-03 16:11] VITALS: BP 117/69
[2019-06-03 20:52] VITALS: BP 142/67
[2019-06-03] MEDS: DAKIN'S 1/4 STRENGTH (0.125%) 473 ML BTL TOP SCH (20:55)
[2019-06-04] VITALS: BP 133/70
[2019-06-04 03:38] VITALS: BP 136/70
[2019-06-04] MEDS: LORazepam 1 MG (ATIVAN) TAB PO PRN (05:32)
[2019-06-04] MEDS: KCL 20 MEQ TAB (K-DUR) PO SCH (05:32)
[2019-06-04 06:07] LABS: BASOPHILS % (AUTO) 1 % (0-10); EOSINOPHILS # (AUTO) 0.2 10^3/uL (0.0-0.3); EOSINOPHILS % (AUTO) 3 % (0-10); HEMATOCRIT 35 % (40-54); HEMOGLOBIN 11.9 G/DL (13.3-17.7); LYMPHOCYTES # (AUTO) 1.6 X 10^3 (1.0-4.0); LYMPHOCYTES % (AUTO) 18 % (12-44); MEAN CORPUSCULAR HEMOGLOBIN 34 PG (25-34); MEAN CORPUSCULAR HGB CONC 34 G/DL (32-36); MEAN CORPUSCULAR VOLUME 99 FL (80-99); MEAN PLATELET VOLUME 9.7 FL (7.4-10.4); MONOCYTES # (AUTO) 0.6 X 10^3 (0.0-1.0); MONOCYTES % (AUTO) 7 % (0-12); NEUTROPHILS # (AUTO) 6.1 X 10^3 (1.8-7.8); NEUTROPHILS % (AUTO) 71 % (42-75); PLATELET COUNT 262 10^3/uL (130-400); RED CELL DISTRIBUTION WIDTH 13.2 % (10.0-14.5); WHITE BLOOD COUNT 8.5 10^3/uL (4.3-11.0)
[2019-06-04] MEDS: inSUlin ASPART (NovoLOG) 1 UNIT/0.01 ML (CHARGE PER UNIT) SC SCH ×2 (06:30→12:09)
[2019-06-04 06:38] LABS: ALANINE AMINOTRANSFERASE 27 U/L (0-55); ALKALINE PHOSPHATASE 164 U/L (40-136); BILIRUBIN,TOTAL 1.1 MG/DL (0.1-1.0); BUN/CREATININE RATIO 5; CALCIUM 8.4 MG/DL (8.5-10.1); CARBON DIOXIDE 23 MMOL/L (21-32); CHLORIDE 100 MMOL/L (98-107); CREATININE SERUM 0.58 MG/DL (0.60-1.30); GFR ESTIMATED > 60; GLUCOSE 108 MG/DL (70-105); SODIUM 131 MMOL/L (135-145); TOTAL PROTEIN 6.2 GM/DL (6.4-8.2)
[2019-06-04] MEDS: NS IV 1000 ML 1,000 ML IV SCH (06:55)
[2019-06-04 08:37] VITALS: BP 145/76
[2019-06-04] MEDS ORDERED: NICO-588 TD (09:57)
[2019-06-04] MEDS ORDERED: INSU100V16 SC (09:57)
[2019-06-04] MEDS ORDERED: SODI473S7 TOP (09:57)
[2019-06-04] MEDS ORDERED: DOXY100T2 PO (09:57)
[2019-06-04] MEDS ORDERED: NYST15CR TP (09:58)
--- NOTE | 2019-06-04 09:58 | Discharge Summary ---
Discharge Summary Reconcile Patient Problems Problems Reviewed?: Yes Hospital Course Hospital Course Date of Admission: Jun 01, 2019 at 19:21 Admission Diagnosis : Family Physician/Provider: Mohamud Salas MD Date of Discharge: 06/04/19 Discharge Diagnosis: Right foot DM ulcer, ETOHism Labs and Pending Lab Test: Laboratory Tests 06/03/19 11:16: Glucometer 207H 06/03/19 16:13: Glucometer 167H 06/03/19 21:18: Glucometer 129H 06/04/19 05:40: White Blood Count 8.5, Red Blood Count 3.54L, Hemoglobin 11.9L, Hematocrit 35L, Mean Corpuscular Volume 99, Mean Corpuscular Hemoglobin 34, Mean Corpuscular Hemoglobin Concent 34, Red Cell Distribution Width 13.2, Platelet Count 262, Mean Platelet Volume 9.7, Neutrophils (%) (Auto) 71, Lymphocytes (%) (Auto) 18, Monocytes (%) (Auto) 7, Eosinophils (%) (Auto) 3, Basophils (%) (Auto) 1, Neutrophils # (Auto) 6.1, Lymphocytes # (Auto) 1.6, Monocytes # (Auto) 0.6, Eosinophils # (Auto) 0.2, Basophils # (Auto) 0.0, Sodium Level 131L, Potassium Level 4.0, Chloride Level 100, Carbon Dioxide Level 23, Anion Gap 8, Blood Urea Nitrogen 3L, Creatinine 0.58L, Estimat Glomerular Filtration Rate > 60, BUN/Creatinine Ratio 5, Glucose Level 108H, Calcium Level 8.4L, Corrected Calcium 9.2, Total Bilirubin 1.1H, Aspartate Amino Transf (AST/SGOT) 45H, Alanine Aminotransferase (ALT/SGPT) 27, Alkaline Phosphatase 164H, Total Protein 6.2L, Albumin 3.0L 06/04/19 06:13: Glucometer 126H Home Meds Active Augmentin 875-125 Tablet (Amoxicillin/Potassium Clav) 1 Each Tablet 1 Each PO BID 10 Days Reported Sulfamethoxazole-Tmp Ds Tablet (Sulfamethoxazole/Trimethoprim) 1 Each Tablet 1 Tab PO BID 10 DAY SUPPLY FILLED 05-27-19 Xarelto (Rivaroxaban) 20 Mg Tablet 20 Mg PO DAILY Gabapentin 300 Mg Capsule 300 Mg PO TID Cartia Xt (Diltiazem HCl) 240 Mg Cap.er.24h 240 Mg PO DAILY Protonix (Pantoprazole Sodium) 40 Mg Tablet.dr 40 Mg PO DAILY Lyrica (Pregabalin) 50 Mg Capsule 50 Mg PO BID LAST FILLED #60 04-14-19 Lasix (Furosemide) 20 Mg Tablet 20 Mg PO DAILY Potassium Chloride 20 Meq Tablet.er 20 Meq PO DAILY Metformin HCl 500 Mg Tablet 500 Mg PO DAILY Lisinopril 10 Mg Tablet 10 Mg PO DAILY Folic Acid 1 Mg Tablet 1 Mg PO DAILY Digoxin 125 Mcg Tablet 125 Mcg PO DAILY Follow Up Appt.: [facility] Skilled [facility] Admit to: [facility] Certification (SNF) I certify that SNF services are required to be given on an inpatient basis because of the above named patient's need for fpc care on a continuing basis for the conditions(s) for which he/she was receiving inpatient hospital services prior to his/her transfer to the SNF. Penitentiary Facility Order: Nursing Services, Netsuite Consultant-Evaluate & Treat, Physical Therapy-Evaluate & Treat, Speech Language-Evaluate & Treat, Wound Care-Eval/Treat Oxygen Delivery Method: Room Air Discharge Diet: ADA Diet Miri Landeros Jun 04, 2019 09:57 Discharge Physical Exam General: Alert Lungs: Clear to Auscultation Heart: Regular Rate MIRI LANDEROS DO Jun 04, 2019 09:58
[2019-06-04] MEDS: NYSTATIN CREAM (MYCOSTATIN) 30 GM TUBE TP SCH ×2 (10:21→13:31)
[2019-06-04] MEDS: ZINC OXIDE 16% OINT (BUTT PASTE) 113 GM TUBE TOP SCH ×2 (10:21→13:31)
[2019-06-04] MEDS: PREGABALIN 50 MG (LYRICA) CAP PO SCH (10:21)
[2019-06-04] MEDS: DILTIAZEM 240 MG (CARDIZEM CD) CAP PO SCH (10:21)
[2019-06-04] MEDS: FUROSEMIDE 20 MG (LASIX) TAB PO SCH (10:22)
[2019-06-04] MEDS: DIGOXIN 0.125 MG (LANOXIN) TAB PO SCH (10:22)
[2019-06-04] MEDS: RIVAROXABAN 20 MG TABLET (XARELTO) PO SCH (10:22)
[2019-06-04] MEDS: GABAPENTIN 300 MG (NEURONTIN) CAP PO SCH ×2 (10:22→13:30)
[2019-06-04] MEDS: DAKIN'S 1/4 STRENGTH (0.125%) 473 ML BTL TOP SCH (10:22)
[2019-06-04] MEDS: FOLIC ACID 1 MG TAB PO SCH (10:22)
[2019-06-04] MEDS: PANTOPRAZOLE 40 MG (PROTONIX) TAB PO SCH (10:23)
[2019-06-04] MEDS: DOXYCYCLINE 100 MG (VIBRAMYCIN) TABLET PO SCH (10:23)
[2019-06-04] MEDS: lisINopril 10 MG (PRINIVIL) TABLET PO SCH (10:26)
[2019-06-04] MEDS: PANTOPRAZOLE 40 MG (PROTONIX) VIAL IV SCH (10:46)
[2019-06-04] MEDS: NICOTINE 21 MG (NICODERM) PATCH TD SCH (10:46)
[2019-06-04] MEDS: THIAMINE INJECTION 100 MG, FOLIC ACID INJECTION 1 MG, MAGNESIUM SULFATE 2 GM, VITAMIN M... IV SCH ×5 (10:46)
--- NOTE | 2019-06-04 12:01 | Discharge Summary ---
[facility] 06/04/19 1147: Discharge Summary Hospital Course Problems/Dx: (1) Wound of right foot Status: Acute Assessment & Plan: Assessment: Diabetic foot ulcer right plantar surface Plan: Continue to change dressing Continue oral antibiotic treatment (2) Hyponatremia Status: Resolved (3) Generalized weakness (4) Intertrigo (5) Alcoholism Status: Acute (6) Type 2 diabetes mellitus Status: Chronic Assessment & Plan: Assessment: Diabetes with complications including foot ulcer and polyneuropathy Plan: Tightly monitor blood glucose levels using insulin treatment Perform daily foot exams Change dressing on foot ulcer BID Recommend eye exam Qualifiers: (7) Alcohol abuse Status: Chronic Assessment & Plan: Assessment: Chronic alcohol abuse Plan: Recommend alcohol cessation with proper management of withdrawal symptoms (8) Current smoker Status: Chronic Hospital Course Date of Admission: Jun 01, 2019 at 19:21 Admission Diagnosis : Family Physician/Provider: Mohamud Salas MD Date of Discharge: 06/04/19 Discharge Diagnosis: [ ] Hospital Course: [ ] 06/01/19: Pt was admitted via the ER for perineal fungal infection and diabetic foot ulcer with the inability for self care at home. Nystatin cream was initiated for fungal groin infection. Began management of diabetes and HTN 06/02/19: Continued diabetes, HTN, and fungal infection management. Continued to monitor diabetic foot ulcer. 06/03/19: Continued diabetes, HTN, and fungal infection management. Continued to monitor diabetic foot ulcer. Discussed discharge to residential with patient who was agreeable to plan 06/04/19: No further treatment initiated. Continued diabetes, HTN, and fungal infection management. Continued to monitor diabetic foot ulcer. Discharge patient to [facility]. Labs and Pending Lab Test: Laboratory Tests 06/03/19 16:13: Glucometer 167H 06/03/19 21:18: Glucometer 129H 06/04/19 05:40: White Blood Count 8.5, Red Blood Count 3.54L, Hemoglobin 11.9L, Hematocrit 35L, Mean Corpuscular Volume 99, Mean Corpuscular Hemoglobin 34, Mean Corpuscular Hemoglobin Concent 34, Red Cell Distribution Width 13.2, Platelet Count 262, Mean Platelet Volume 9.7, Neutrophils (%) (Auto) 71, Lymphocytes (%) (Auto) 18, Monocytes (%) (Auto) 7, Eosinophils (%) (Auto) 3, Basophils (%) (Auto) 1, Neutrophils # (Auto) 6.1, Lymphocytes # (Auto) 1.6, Monocytes # (Auto) 0.6, Eosinophils # (Auto) 0.2, Basophils # (Auto) 0.0, Sodium Level 131L, Potassium Level 4.0, Chloride Level 100, Carbon Dioxide Level 23, Anion Gap 8, Blood Urea Nitrogen 3L, Creatinine 0.58L, Estimat Glomerular Filtration Rate > 60, BUN/Creatinine Ratio 5, Glucose Level 108H, Calcium Level 8.4L, Corrected Calcium 9.2, Total Bilirubin 1.1H, Aspartate Amino Transf (AST/SGOT) 45H, Alanine Aminotransferase (ALT/SGPT) 27, Alkaline Phosphatase 164H, Total Protein 6.2L, Albumin 3.0L 06/04/19 06:13: Glucometer 126H 06/04/19 11:12: Glucometer 176H Home Meds Active Nystatin 15 Gm Cream..g. 0 Gm TP TID 7 Days Novolog (Insulin Aspart) 100 Unit/1 Ml Susp 0 Unit SC ACHS 30 Days Dakin's (Sodium Hypochlorite) 473 Ml Solution 0 Ml TOP BID 30 Days Nicotine Patch (Nicotine) 1 Each Patch.td24 21 Mg TD DAILY 30 Days Doxycycline Hyclate 100 Mg Tablet 100 Mg PO BID 7 Days Reported Xarelto (Rivaroxaban) 20 Mg Tablet 20 Mg PO DAILY Gabapentin 300 Mg Capsule 300 Mg PO TID Cartia Xt (Diltiazem HCl) 240 Mg Cap.er.24h 240 Mg PO DAILY Protonix (Pantoprazole Sodium) 40 Mg Tablet.dr 40 Mg PO DAILY Lyrica (Pregabalin) 50 Mg Capsule 50 Mg PO BID LAST FILLED #60 04-14-19 Lasix (Furosemide) 20 Mg Tablet 20 Mg PO DAILY Potassium Chloride 20 Meq Tablet.er 20 Meq PO DAILY Lisinopril 10 Mg Tablet 10 Mg PO DAILY Folic Acid 1 Mg Tablet 1 Mg PO DAILY Digoxin 125 Mcg Tablet 125 Mcg PO DAILY Assessment/Pt Instructions Continue applying the Nystatin antifungal cream to the rash in the groin area. Continue to take all prescribed medication as directed for high blood pressure, diabetes, and neuropathic pain. Discharge Instructions Discharge Diet: ADA Diet Discharge Physical Examination Vital Signs Vital Signs Date Time Temp Pulse Resp B/P (MAP) Pulse Ox O2 Delivery O2 Flow Rate FiO2 06/04/19 08:37 37.5 95 18 145/76 (99) 95 Room Air General Appearance: WD/WN, Mild Distress HEENT: PERRL/EOMI, Pharynx Normal Respiratory: Chest Non Tender, Lungs Clear, Normal Breath Sounds, No Accessory Muscle Use, No Respiratory Distress Cardiovascular: Regular Rate, Rhythm, No Gallop, No Murmur, Normal Peripheral Pulses Extremity: Normal Range of Motion, No Calf Tenderness Skin: Normal Color, Warm/Dry, Other (Ulceration of right foot plantar surface ) Neurologic/Psychiatric: Alert, Oriented x3, Normal Mood/Affect Allergies: Coded Allergies: No Known Drug Allergies (Unverified , 10/25/17) Discharge Summary Date of Admission Jun 01, 2019 at 19:21 Date of Discharge Discharge Date: Jun 04, 2019 Admission Diagnosis Assessment: Right foot ulcer Cellulitis ETOHism Unable to care for self Plan: PO abx Monitor closely Discharge Diagnosis Assessment: Diabetic foot ulcer, Infection of anogenital region Diabetes Anemia, Dehydration, Hypocalcemia Alcohol abuse Tobacco abuse Plan: Manage diabetes NovoLog sliding scale Continue Nystatin cream to anogenital infection Continue gabapentin for neuropathic pain Alcohol withdrawal procedures, Ativan Monitor hypocalcemia, redraw labs in AM Consult wound care for diabetic ulcer Offer nicotine patch for withdrawal symptoms (1) Wound of right foot Status: Acute (2) Hyponatremia Status: Resolved (3) Generalized weakness (4) Intertrigo (5) Alcoholism Status: Acute (6) Type 2 diabetes mellitus Status: Chronic Qualifiers: (7) Alcohol abuse Status: Chronic (8) Current smoker Status: Chronic Clinical Quality Measures DVT/VTE Risk/Contraindication: Risk Factor Score Per Nursin RFS Level Per Nursing on Admit: 4+=Very High MIRI GOMEZ DO 06/04/196: Discharge Summary Hospital Course Was the Problem List Reviewed?: Yes Hospital Course Hospital course: Pt had an uneventful three day hospital course after he was admitted for generalized weakness, failed oral antibiotic for right foot infection, diabetic type, placed on Doxyclicline, discontinued Augmentin and Bactrim, Pt placed on gentle IV fluids and wound care was consulted. Alcohol withdrawal protocol followed and overall Pt had such poor prognosis not much more could be done to modify his risk factors, he remains a re-admission risk due to his very debilitated state and history of alcoholism so he was placed on skilled care to the residential with close follow-up with [facility]. Assessment/Pt Instructions NHP Discharge Planning: <30 minutes discharge planning Discharge Instructions Discharge Diet: ADA Diet Activity as Tolerated: Yes Discharge Physical Examination Allergies: Coded Allergies: No Known Drug Allergies (Unverified , 10/25/17) Supervisory-Addendum Brief Verification & Attestation Participated in pt care: history, MDM, physical Personally performed: exam, history, MDM, supervision of care Care discussed with: Medical Student Procedures: n/a Results interpretation: Verified all documentation Verification and Attestation of Medical Student E/M Service A medical student performed and documented this service in my presence. I reviewed and verified all information documented by the medical student and made modifications to such information, when appropriate. I personally performed the physical exam and medical decision making. Miri Gomez, Jun 04, 2019,21:15 [facility] Jun 04, 2019 11:47 MIRI GOMEZ DO Jun 04, 2019 21:16
[2019-06-04 12:25] VITALS: BP 151/69
--- NOTE | 2019-06-04 13:03 | NUR ---
CM/SS. Patient discharged to new Medicare skilled placement with [facility] via their transport scheduled for this p.m. CARE Assessment completed with patient, processed with [facility]. Faxed CARE, orders, and instructions to [facility]. Updated niece Chantal of all arrangements. Chantal and Anuja plan to followup with [facility] regarding potential for VA benefits for assisted living or in-home supports. Patient pleasant today, his caregiver has provided fresh clothing and Chantal reports that other clothing and supplies have been taken to [facility], including wine and cigars.
[2019-06-04 13:38] VITALS: BP 151/69
--- NOTE | 2019-06-04 15:30 | NUR ---
NOTE THAT [facility] CALLED WANTED CLARIFICATION ABOUT [facility] INSTRUCTIONS -- DR GOMEZ WAS CALLED SHE WANTED [facility] A -- THIS INFO WAS FAXED TO [facility] [place]
== END 2019-06-04 13:38 | DRG 638 ==
LOC: EDUNIT# 16:39 → ER 16:40 → 4TH 19:21
PROVIDERS: ADMIT Internal Medicine; ATTEND Internal Medicine
DX: E11.621 Type 2 diabetes mellitus with foot ulcer (principal); L97.519 Non-pressure chronic ulcer of other part of right foot with unspecified severity; L03.115 Cellulitis of right lower limb; B37.2 Candidiasis of skin and nail; L30.4 Erythema intertrigo; E87.1 Hypo-osmolality and hyponatremia; I42.9 Cardiomyopathy, unspecified; E11.42 Type 2 diabetes mellitus with diabetic polyneuropathy; E86.0 Dehydration; N48.89 Other specified disorders of penis; I48.91 Unspecified atrial fibrillation; I11.0 Hypertensive heart disease with heart failure; I50.9 Heart failure, unspecified; F17.290 Nicotine dependence, other tobacco product, uncomplicated; K21.9 Gastro-esophageal reflux disease without esophagitis; K75.9 Inflammatory liver disease, unspecified; M62.81 Muscle weakness (generalized); R26.81 Unsteadiness on feet; F41.9 Anxiety disorder, unspecified; F32.9 Major depressive disorder, single episode, unspecified; D64.9 Anemia, unspecified; E83.51 Hypocalcemia; F10.10 Alcohol abuse, uncomplicated; Z74.1 Need for assistance with personal care
CPT/HCPCS: 36415; 71045; 80053; 80320; 81000; 82962; 83735; 85025; 85610; 85730; 96374

== ENCOUNTER → 2019-06-08 | Outpatient (CLI) | payer MEDICARE, OTHER ==
[~2019-06-08] MED LIST changes: +CLOT15CR5 TP; +DOXY100T2 PO; +INSU100V16 SC; +NICO-588 TD; +NYST15CR TP; +SODI473S7 TOP; +SULF-222 PO
== END ==
LOC: WOUNDCARE 08:03
PROVIDERS: ATTEND Surgery
DX: E11.621 Type 2 diabetes mellitus with foot ulcer (principal); E11.52 Type 2 diabetes mellitus with diabetic peripheral angiopathy with gangrene; E11.42 Type 2 diabetes mellitus with diabetic polyneuropathy; L97.512 Non-pressure chronic ulcer of other part of right foot with fat layer exposed; I70.261 Atherosclerosis of native arteries of extremities with gangrene, right leg; I89.0 Lymphedema, not elsewhere classified
CPT/HCPCS: 11042

== ENCOUNTER → 2019-06-16 | Outpatient (CLI) | payer OTHER | LOC: WOUNDCARE 12:59 | PROVIDERS: ATTEND Surgery | DX: E11.621 Type 2 diabetes mellitus with foot ulcer (principal); E11.42 Type 2 diabetes mellitus with diabetic polyneuropathy; E11.52 Type 2 diabetes mellitus with diabetic peripheral angiopathy with gangrene; L97.512 Non-pressure chronic ulcer of other part of right foot with fat layer exposed; I70.235 Atherosclerosis of native arteries of right leg with ulceration of other part of foot; I89.0 Lymphedema, not elsewhere classified | CPT/HCPCS: 11042 ==

== ENCOUNTER → 2019-06-23 | Outpatient (CLI) | payer OTHER | LOC: WOUNDCARE 12:50 | PROVIDERS: ATTEND Surgery | DX: E11.621 Type 2 diabetes mellitus with foot ulcer (principal); E11.42 Type 2 diabetes mellitus with diabetic polyneuropathy; L97.512 Non-pressure chronic ulcer of other part of right foot with fat layer exposed; I70.235 Atherosclerosis of native arteries of right leg with ulceration of other part of foot; I89.0 Lymphedema, not elsewhere classified; E11.52 Type 2 diabetes mellitus with diabetic peripheral angiopathy with gangrene | CPT/HCPCS: 99213 ==

== ENCOUNTER → 2019-06-30 | Outpatient (CLI) | payer OTHER | LOC: WOUNDCARE 12:32 | PROVIDERS: ATTEND Surgery | DX: E11.621 Type 2 diabetes mellitus with foot ulcer (principal); E11.42 Type 2 diabetes mellitus with diabetic polyneuropathy; E11.52 Type 2 diabetes mellitus with diabetic peripheral angiopathy with gangrene; L97.512 Non-pressure chronic ulcer of other part of right foot with fat layer exposed; I70.235 Atherosclerosis of native arteries of right leg with ulceration of other part of foot; I89.0 Lymphedema, not elsewhere classified ==

== ENCOUNTER → 2019-07-14 | Outpatient (CLI) | payer MEDICARE | LOC: WOUNDCARE 13:00 | PROVIDERS: ATTEND Surgery | DX: E11.621 Type 2 diabetes mellitus with foot ulcer (principal); E11.42 Type 2 diabetes mellitus with diabetic polyneuropathy; L97.512 Non-pressure chronic ulcer of other part of right foot with fat layer exposed; I70.235 Atherosclerosis of native arteries of right leg with ulceration of other part of foot; I89.0 Lymphedema, not elsewhere classified; E11.52 Type 2 diabetes mellitus with diabetic peripheral angiopathy with gangrene | CPT/HCPCS: 99213 ==

== ENCOUNTER 2019-09-21 16:17 | Emergency (ER) | payer MEDICARE ==
[~2019-09-21] VITALS: Ht 187 cm; Wt 99.7 kg
[~2019-09-21 16:17] MED LIST changes: -DIGO125T PO; +DIGO125T3 PO
[2019-09-21] MEDS ORDERED: cefTRIAXone 500 MG/1.43 ML vial (IM ONLY) IM ONE (16:45)
[2019-09-21] MEDS ORDERED: LIDOCAINE 1% INJ 20 ML 20 ML VIAL INJ ONE (16:45)
--- NOTE | 2019-09-21 16:48 | ED Integumentary General ---
General Chief Complaint: Skin/Wound Problems Stated Complaint: SWOLLEN LEG Nursing Triage Note: RIGHT FOOT ULCER AND LEG SWELLING. CHRONIC FOOT ULCER AND HAS NOT FOLLOWED UP FOR CARE AFTER THE LAST ANTIBIOTIC. Source: patient, family Exam Limitations: no limitations History of Present Illness Date Seen by Provider: Sep 21, 2019 Time Seen by Provider: 16:30 Initial Comments Patient presents with 3 days of redness and swelling of his right foot and lower leg. Currently being treated for diabetic foot ulcer and wound clinic. Was on doxycycline until about a week ago and then stopped. Has not had follow-up with his primary care provider and presents to the ER today. Denies fever or chills, denies significant pain. Allergies and Home Medications Allergies Coded Allergies: No Known Drug Allergies (Unverified , 10/25/17) Home Medications Digoxin 125 Mcg Tablet, 125 MCG PO DAILY, (Reported) Diltiazem HCl 240 Mg Cap.er.24h, 240 MG PO DAILY, (Reported) Doxycycline Hyclate 100 Mg Tablet, 100 MG PO BID Prescribed by: REGAN GOMEZ on 06/04/19956 Doxycycline Hyclate 100 Mg Capsule, 100 MG PO BID Prescribed by: LUIS SHIN on 09/21/19 1653 Folic Acid 1 Mg Tablet, 1 MG PO DAILY, (Reported) Furosemide 20 Mg Tablet, 20 MG PO DAILY, (Reported) Gabapentin 300 Mg Capsule, 300 MG PO TID, (Reported) Insulin Aspart 100 Unit/1 Ml Susp, 0 UNIT SC ACHS Prescribed by: REGAN GOMEZ on 06/04/19956 Lisinopril 10 Mg Tablet, 10 MG PO DAILY, (Reported) Nicotine 1 Each Patch.td24, 21 MG TD DAILY Prescribed by: REGAN GOMEZ on 06/04/19956 Nystatin 15 Gm Cream..g., 0 GM TP TID Prescribed by: REGAN GOMEZ on 06/04/19957 Pantoprazole Sodium 40 Mg Tablet.dr, 40 MG PO DAILY, (Reported) Potassium Chloride 20 Meq Tablet.er, 20 MEQ PO DAILY, (Reported) Pregabalin 50 Mg Capsule, 50 MG PO BID, (Reported) LAST FILLED #60 04-14-19 Rivaroxaban 20 Mg Tablet, 20 MG PO DAILY, (Reported) Sodium Hypochlorite 473 Ml Solution, 0 ML TOP BID Prescribed by: REGAN GOMEZ on 06/04/19956 Patient Home Medication List Home Medication List Reviewed: Yes Review of Systems Review of Systems Constitutional: no symptoms reported, see HPI; No fever, No malaise, No weakness Respiratory: No cough, No short of breath Cardiovascular: No chest pain, No edema, No palpitations Musculoskeletal: see HPI Skin: see HPI, change in color Past Mpjarym-Wvslio-Ciwysw Hx Past Med/Social Hx: Reviewed Nursing Past Med/Soc Hx Patient Social History Alcohol Use: Regular Use Number of Drinks Today: Alcohol Beverage of Choice: Whiskey, Wine Recreational Drug Use: No Type Used: Cigars 2nd Hand Smoke Exposure: Yes Recent Foreign Travel: No Contact w/Someone Who Travel: No Recent Infectious Disease Expo: No Recent Hopitalizations: No Physical Abuse: No Sexual Abuse: No Mistreated: No Fear: No Immunizations Up To Date Tetanus Booster (TDap): Unknown Date of Pneumonia Vaccine: Aug 26, 2015 Date of Influenza Vaccine: May 26, 2019 Seasonal Allergies Seasonal Allergies: No Past Medical History Surgeries: No (UNKNOWN) Orthopedic, Tonsillectomy Respiratory: Yes Pneumonia Cardiac: Yes (heart failure with lower extremity edema) Atrial Fibrillation, Cardiomyopathy, Hypertension Neurological: Yes (neuritis and neuralgia; dizziness) Genitourinary: Yes (current UTI) Gastrointestinal: Yes (ileus) Gastroesophageal Reflux, Liver Disease/Jaundice, Gastrointestinal Bleed, Hepatitis Musculoskeletal: Yes (generalized muscle weakness, unsteadiness on feet) Endocrine: Yes Diabetes, Non-Insulin dep HEENT: No Loss of Vision: Denies Hearing Impairment: Denies Cancer: No Psychosocial: Yes Anxiety, Depression Integumentary: No Blood Disorders: Yes (anemia) Family Medical History Diabetes mellitus G8 BROTHER FH: testicular cancer 19 FATHER Unknown cancer 19 MOTHER No Pertinent Family Hx Physical Exam Vital Signs Vital Signs - First Documented 09/21/19 16:37 Temp 36.1 Pulse 80 Resp 18 B/P (MAP) 131/58 (82) Pulse Ox 98 O2 Delivery Room Air Capillary Refill : Less Than 3 Seconds General Appearance: WD/WN, no apparent distress Cardiovascular: regular rate, rhythm, no edema Respiratory: chest non-tender, lungs clear Extremities: normal range of motion, non-tender, other (RLE- chronic ulcer plantar, R foot. Edema and erythema of foot and distal leg) Neurologic/Psychiatric: normal mood/affect, oriented x 3 Progress/Results/Core Measures Results/Orders My Orders Orders - LUIS SHIN DO Ceftriaxone For Im Use (Rocephin For Im (09/21/19 16:45) Lidocaine 1% Inj 20 Ml (Xylocaine 1% Inj (09/21/19 16:45) Medications Given in ED Current Medications Medications Dose Ordered Sig/Benito Route Start Time Stop Time Status Last Admin Dose Admin Ceftriaxone Sodium 500 mg ONCE ONCE IM 09/21/19 16:45 09/21/19 16:46 DC 09/21/19 17:00 500 MG Lidocaine HCl 1 ml ONCE ONCE INJ 09/21/19 16:45 09/21/19 16:46 DC 09/21/19 17:00 1 ML Vital Signs/I&O 09/21/19 09/21/19 16:37 17:01 Temp 36.1 36.1 Pulse 80 80 Resp 18 18 B/P (MAP) 131/58 (82) 131/58 Pulse Ox 98 98 O2 Delivery Room Air Room Air Blood Pressure Mean: 82 Departure Impression Primary Impression: Cellulitis of right lower extremity Additional Impression: Diabetic foot ulcer Qualified Codes: E08.621 - Diabetes mellitus due to underlying condition with foot ulcer; L97.519 - Non-pressure chronic ulcer of other part of right foot with unspecified severity Disposition: HOME, SELF-CARE Condition: Stable Departure-Patient Inst. Referrals: MALISSA GARRETT MD (PCP/Family) Primary Care Physician Patient Instructions: Wound Care (DC), Foot Care for Diabetics, Cellulitis (Skin Infection), Adult (DC) Scripts Doxycycline Hyclate (Doxycycline Hyclate) 100 Mg Capsule 100 MG PO BID for 7 Days, #20 CAP Prov: LUIS SHIN DO 09/21/19 LUIS SHIN DO Sep 21, 2019 16:48
[2019-09-21] MEDS ORDERED: DOXY100C2 PO (16:53)
[2019-09-21 17:01] VITALS: BP 131/58
== END 2019-09-21 17:08 | disposition home or self-care (01) ==
LOC: EDUNIT# 16:17 → ER FS 16:19
DX: L03.115 Cellulitis of right lower limb (principal); E08.621 Diabetes mellitus due to underlying condition with foot ulcer; L97.519 Non-pressure chronic ulcer of other part of right foot with unspecified severity; I11.0 Hypertensive heart disease with heart failure; I50.9 Heart failure, unspecified; I48.91 Unspecified atrial fibrillation; K21.9 Gastro-esophageal reflux disease without esophagitis; F41.9 Anxiety disorder, unspecified; F32.9 Major depressive disorder, single episode, unspecified; D64.9 Anemia, unspecified; Z79.4 Long term (current) use of insulin; Z79.01 Long term (current) use of anticoagulants; Z77.22 Contact with and (suspected) exposure to environmental tobacco smoke (acute) (chronic); Z80.43 Family history of malignant neoplasm of testis

== ENCOUNTER → 2019-09-24 | Outpatient (CLI) | payer MEDICARE ==
[~2019-09-24] MED LIST changes: +DOXY100C2 PO
--- NOTE | 2019-09-24 16:55 | Diagnostic Imaging Report ---
INDICATION: Right foot ulcer. TIME OF EXAM: 2:34 p.m. TECHNIQUE: Three views of the right foot were obtained. FINDINGS: There is a fracture involving the distal fifth metatarsal. This appears to be acute. There is also fracture at the base of the proximal phalanx of the fifth toe. There appear to be some bony destructive changes at the proximal aspect of the proximal phalanx fifth toe. There are also some probable destructive changes of the distal fifth metatarsal. There is adjacent soft tissue gas present and findings are suggestive of osteomyelitis. There is moderate amount of soft tissue swelling along the dorsum of the foot. Generalized demineralization is seen. Remaining metatarsals and phalanges are intact. Midfoot and hindfoot are unremarkable. There are vascular calcifications. IMPRESSION: Bony destructive changes of the distal fifth metatarsal and proximal phalanx of the fifth toe with adjacent soft tissue swelling and soft tissue gas, consistent with osteomyelitis. There also appears to be a probable fracture of the distal fifth metatarsal and proximal phalanx fifth toe as well. Dictated by: Dictated on workstation # [id number]
== END ==
LOC: RAD FS 14:24
PROVIDERS: ATTEND Family Medicine
DX: I83.209 Varicose veins of unspecified lower extremity with both ulcer of unspecified site and inflammation (principal)
CPT/HCPCS: 73630

== ENCOUNTER 2019-09-28 14:56 | Inpatient (IN) | payer MEDICARE ==
[~2019-09-28] VITALS: Ht 187 cm; Wt 99.8 kg
[2019-09-28] MEDS ORDERED: VANCOMYCIN INJECTION 1,000 MG in NS (IVPB) 250 ML IV SCH (16:30)
[2019-09-28] MEDS ORDERED: PIPERACILLIN SODIUM/TAZOBACTAM 4.5 GM in NS (IVPB) 100 ML IV ONE (16:30)
--- NOTE | 2019-09-28 16:42 | NUR ---
PHARMACY NOTIFEID OF NEEDING MEDICATIONS SENT TO ER.
[2019-09-28 16:44] LABS: BASOPHILS % (AUTO) 1 % (0-10); EOSINOPHILS # (AUTO) 0.2 10^3/uL (0.0-0.3); EOSINOPHILS % (AUTO) 2 % (0-10); HEMATOCRIT 36 % (40-54); HEMOGLOBIN 12.5 G/DL (13.3-17.7); LYMPHOCYTES # (AUTO) 1.9 X 10^3 (1.0-4.0); LYMPHOCYTES % (AUTO) 23 % (12-44); MEAN CORPUSCULAR HEMOGLOBIN 32 PG (25-34); MEAN CORPUSCULAR HGB CONC 35 G/DL (32-36); MEAN CORPUSCULAR VOLUME 91 FL (80-99); MEAN PLATELET VOLUME 8.8 FL (7.4-10.4); MONOCYTES # (AUTO) 0.9 X 10^3 (0.0-1.0); MONOCYTES % (AUTO) 11 % (0-12); NEUTROPHILS # (AUTO) 5.4 X 10^3 (1.8-7.8); NEUTROPHILS % (AUTO) 64 % (42-75); PLATELET COUNT 310 10^3/uL (130-400); RED CELL DISTRIBUTION WIDTH 14.3 % (10.0-14.5); WHITE BLOOD COUNT 8.4 10^3/uL (4.3-11.0)
--- NOTE | 2019-09-28 17:03 | ED Lower Extremity ---
General Chief Complaint: Lower Extremity Stated Complaint: FOOT WOUND Nursing Triage Note: PT TO TRIAGE VIA W/C WITH C/O RIGHT FOOT INFECTION. PT STATES HE WAS SEEN BY [facility] IN LAST WEEK AND THEY TOOK A WOULD CX. PT REPORTS THAT THE PROVIDER CONTACTED HIM AND SAID THAT THE INFECTION HAD GOTTEN INTO HIS FOOT AND THAT HE NEEDED TO COME TO THE EMERGENCY DEPARTMENT TO BE ADMITTED. PT WAS UNDER THE ASSUMPTION THAT HE WOULD BE ABLE TO PRESENT TO ED AND BE ADMITTED DIRECTLY. Nursing Sepsis Screen: No Definite Risk Source: patient Exam Limitations: no limitations History of Present Illness Date Seen by Provider: Sep 28, 2019 Time Seen by Provider: 16:10 Initial Comments To ER with right foot infection. He is diabetic and has been battling this for many months. He is currently on doxycycline. He used to follow with Dr. Johnson but he was subsequently released by Dr. Gomez to follow up with primary care doctor Josue. They did a wound culture last week, he was called today to be informed that "the infection had spread to the bone" and he needed to come to the emergency room to be admitted. Onset: other Severity: moderate Pain/Injury Location: right foot Method of Injury: unknown Allergies and Home Medications Allergies Coded Allergies: No Known Drug Allergies (Unverified , 10/25/17) Home Medications Digoxin 125 Mcg Tablet, 125 MCG PO DAILY, (Reported) Diltiazem HCl 240 Mg Cap.er.24h, 240 MG PO DAILY, (Reported) Doxycycline Hyclate 100 Mg Tablet, 100 MG PO BID Prescribed by: REGAN GOMEZ on 06/04/19956 Doxycycline Hyclate 100 Mg Capsule, 100 MG PO BID Prescribed by: LUIS SHIN on 09/21/19 1653 Folic Acid 1 Mg Tablet, 1 MG PO DAILY, (Reported) Furosemide 20 Mg Tablet, 20 MG PO DAILY, (Reported) Gabapentin 300 Mg Capsule, 300 MG PO TID, (Reported) Insulin Aspart 100 Unit/1 Ml Susp, 0 UNIT SC ACHS Prescribed by: REGAN GOMEZ on 06/04/19956 Lisinopril 10 Mg Tablet, 10 MG PO DAILY, (Reported) Nicotine 1 Each Patch.td24, 21 MG TD DAILY Prescribed by: REGAN GOMEZ on 06/04/19956 Nystatin 15 Gm Cream..g., 0 GM TP TID Prescribed by: REGAN GOMEZ on 06/04/19 0958 Pantoprazole Sodium 40 Mg Tablet.dr, 40 MG PO DAILY, (Reported) Potassium Chloride 20 Meq Tablet.er, 20 MEQ PO DAILY, (Reported) Pregabalin 50 Mg Capsule, 50 MG PO BID, (Reported) LAST FILLED #60 04-14-19 Rivaroxaban 20 Mg Tablet, 20 MG PO DAILY, (Reported) Sodium Hypochlorite 473 Ml Solution, 0 ML TOP BID Prescribed by: REGAN GOMEZ on 06/04/19 0957 Patient Home Medication List Home Medication List Reviewed: Yes Review of Systems Constitutional: see HPI EENTM: see HPI Respiratory: no symptoms reported Cardiovascular: no symptoms reported Genitourinary: no symptoms reported Musculoskeletal: see HPI Skin: no symptoms reported Psychiatric/Neurological: No Symptoms Reported Past Csgdxpt-Mpanap-Blpevn Hx Patient Social History Alcohol Use: Regular Use Number of Drinks Today: Alcohol Beverage of Choice: Whiskey, Wine Recreational Drug Use: No Smoking Status: Current Everyday Smoker Type Used: Cigars 2nd Hand Smoke Exposure: Yes Recent Foreign Travel: No Contact w/Someone Who Travel: No Recent Infectious Disease Expo: No Recent Hopitalizations: No Physical Abuse: No Sexual Abuse: No Mistreated: No Fear: No Immunizations Up To Date Tetanus Booster (TDap): Unknown Date of Pneumonia Vaccine: Aug 26, 2015 Date of Influenza Vaccine: May 26, 2019 Seasonal Allergies Seasonal Allergies: No Past Medical History Surgeries: No (UNKNOWN) Orthopedic, Tonsillectomy Respiratory: Yes Pneumonia Cardiac: Yes (heart failure with lower extremity edema) Atrial Fibrillation, Cardiomyopathy, Hypertension Neurological: Yes (neuritis and neuralgia; dizziness) Genitourinary: Yes (current UTI) Gastrointestinal: Yes (ileus) Gastroesophageal Reflux, Liver Disease/Jaundice, Gastrointestinal Bleed, Hepatitis Musculoskeletal: Yes (generalized muscle weakness, unsteadiness on feet) Endocrine: Yes Diabetes, Non-Insulin dep HEENT: No Loss of Vision: Denies Hearing Impairment: Denies Cancer: No Psychosocial: Yes Anxiety, Depression Integumentary: No Blood Disorders: Yes (anemia) Family Medical History Diabetes mellitus G8 BROTHER FH: testicular cancer 19 FATHER Unknown cancer 19 MOTHER No Pertinent Family Hx Physical Exam Vital Signs Vital Signs - First Documented 09/28/19 16:08 Temp 36.7 Pulse 84 B/P (MAP) 138/71 (93) O2 Delivery Room Air Capillary Refill : Less Than 3 Seconds Height, Weight, BMI Height: 5'11.00" Weight: 179lbs. 9.0oz. 81.859093fr; 25.00 BMI Method:Estimated General Appearance: WD/WN, no apparent distress HEENT: PERRL/EOMI, normal ENT inspection Respiratory: no respiratory distress, no accessory muscle use Hips: bilateral hip non-tender, bilateral hip normal inspection, bilateral hip normal range of motion Legs: bilateral leg non-tender, bilateral leg normal inspection, bilateral leg normal range of motion Knees: bilateral knee non-tender, bilateral knee normal inspection, bilateral knee normal range of motion Ankles: bilateral ankle non-tender, bilateral ankle normal inspection, bilateral ankle normal range of motion Feet: right foot pain, right foot soft tissue tenderness, right foot swelling, right foot other (erythema and swelling to the right foot with a wound to the lateral dorsal aspect of the foot and 2 larger deeper ulcers to the lateral plantar surface of the right foot) Neurologic/Psychiatric: alert, normal mood/affect, oriented x 3 Skin: normal color, warm/dry Progress/Results/Core Measures Results/Orders Lab Results Laboratory Tests Test 09/28/19 16:30 Range/Units White Blood Count 8.4 4.3-11.0 10^3/uL Red Blood Count 3.96 L 4.35-5.85 10^6/uL Hemoglobin 12.5 L 13.3-17.7 G/DL Hematocrit 36 L 40-54 % Mean Corpuscular Volume 91 80-99 FL Mean Corpuscular Hemoglobin 32 25-34 PG Mean Corpuscular Hemoglobin Concent 35 32-36 G/DL Red Cell Distribution Width 14.3 10.0-14.5 % Platelet Count 310 130-400 10^3/uL Mean Platelet Volume 8.8 7.4-10.4 FL Neutrophils (%) (Auto) 64 42-75 % Lymphocytes (%) (Auto) 23 12-44 % Monocytes (%) (Auto) 11 0-12 % Eosinophils (%) (Auto) 2 0-10 % Basophils (%) (Auto) 1 0-10 % Neutrophils # (Auto) 5.4 1.8-7.8 X 10^3 Lymphocytes # (Auto) 1.9 1.0-4.0 X 10^3 Monocytes # (Auto) 0.9 0.0-1.0 X 10^3 Eosinophils # (Auto) 0.2 0.0-0.3 10^3/uL Basophils # (Auto) 0.0 0.0-0.1 10^3/uL Prothrombin Time 29.3 H 12.2-14.7 SEC INR Comment 2.6 H 0.8-1.4 Sodium Level 125 *L 135-145 MMOL/L Potassium Level 4.7 3.6-5.0 MMOL/L Chloride Level 93 L 98-107 MMOL/L Carbon Dioxide Level 24 21-32 MMOL/L Anion Gap 8 5-14 MMOL/L Blood Urea Nitrogen 5 L 7-18 MG/DL Creatinine 0.66 0.60-1.30 MG/DL Estimat Glomerular Filtration Rate > 60 BUN/Creatinine Ratio 8 Glucose Level 118 H 70-105 MG/DL Lactic Acid Level 0.95 0.50-2.00 MMOL/L Calcium Level 8.9 8.5-10.1 MG/DL Corrected Calcium 9.8 8.5-10.1 MG/DL Total Bilirubin 0.7 0.1-1.0 MG/DL Aspartate Amino Transf (AST/SGOT) 14 5-34 U/L Alanine Aminotransferase (ALT/SGPT) 11 0-55 U/L Alkaline Phosphatase 197 H 40-136 U/L Total Protein 7.1 6.4-8.2 GM/DL Albumin 2.9 L 3.2-4.5 GM/DL My Orders Orders - SERAFIN BOONE APRN Cbc With Automated Diff (09/28/19 16:22) Comprehensive Metabolic Panel (09/28/19 16:22) Protime With Inr (09/28/19 16:22) Foot, Right, 3 View (09/28/19 16:22) Blood Culture (09/28/19 16:22) Lactic Acid Analyzer (09/28/19 16:22) Ed Iv/Invasive Line Start (09/28/19 16:22) Piperacillin Sodium/Tazobactam (Zosyn Vi (09/28/19 16:30) Vancomycin Injection (Vancomycin Injecti (09/28/19 16:30) Wound Culture (09/28/19 16:22) Medications Given in ED Current Medications Medications Dose Ordered Sig/Benito Route Start Time Stop Time Status Last Admin Dose Admin Piperacillin Sod/ Tazobactam Sod 4.5 gm/Sodium Chloride 100 ml @ 200 mls/hr ONCE ONCE IV 09/28/19 16:30 09/28/19 16:59 DC 09/28/19 16:56 200 MLS/HR Vital Signs/I&O 09/28/19 16:08 Temp 36.7 Pulse 84 B/P (MAP) 138/71 (93) O2 Delivery Room Air Blood Pressure Mean: 93 Departure Communication (Admissions) Time/Spoke to Consulting Phy: 17:[address] CONTRERAS, he'll consult She also states that he drinks about 4 glasses of wine a night. Impression Primary Impression: Wound of right foot Additional Impression: Type 2 diabetes mellitus Disposition: 01 HOME, SELF-CARE Condition: Stable Admissions Decision to Admit Reason: Admit from ER (General) Decision to Admit/Date: Sep 28, 2019 Time/Decision to Admit Time: 17:44 Departure-Patient Inst. Referrals: MALISSA GARRETT MD (PCP/Family) Primary Care Physician SERAFIN BOONE APRN Sep 28, 2019 17:03
[2019-09-28 17:07] LABS: ALANINE AMINOTRANSFERASE 11 U/L (0-55); ALBUMIN 2.9 GM/DL (3.2-4.5); ALKALINE PHOSPHATASE 197 U/L (40-136); BILIRUBIN,TOTAL 0.7 MG/DL (0.1-1.0); BUN/CREATININE RATIO 8; CALCIUM 8.9 MG/DL (8.5-10.1); CARBON DIOXIDE 24 MMOL/L (21-32); CHLORIDE 93 MMOL/L (98-107); CREATININE SERUM 0.66 MG/DL (0.60-1.30); GFR ESTIMATED > 60; GLUCOSE 118 MG/DL (70-105); POTASSIUM 4.7 MMOL/L (3.6-5.0); TOTAL PROTEIN 7.1 GM/DL (6.4-8.2)
[2019-09-28 17:10] LABS: SODIUM 125 MMOL/L (135-145)
--- NOTE | 2019-09-28 17:10 | Diagnostic Imaging Report ---
INDICATION: Infection, pain. COMPARISON: September 24, 2019. TECHNIQUE: Three radiographs of the right foot dated September 28, 2019. FINDINGS: Comminuted fracturing of the [id number]-[id number] fifth metatarsal is again identified. Displacement has slightly increased since the prior examination. Soft tissue gas is noted about this location with increasing lucencies involving the base of the fifth digit proximal phalanx and involving the distal aspect of the fifth metatarsal. No new fracture or dislocation. Severe degenerative changes within the hindfoot are again noted. Advanced vascular calcifications. Soft tissue swelling is present, particularly involving the forefoot. IMPRESSION: 1. Slightly increasing osseous destruction associated with the [id number] fifth metatarsal and proximal fifth phalanx is concerning for underlying osteomyelitis. 2. Persistent fracturing of the fifth metatarsal and fifth digit proximal phalanx.. 3. No new fracture or dislocation. Dictated by: Dictated on workstation # [id number]
[2019-09-28 17:20] LABS: INR 2.6 (0.8-1.4); PROTHROMBIN TIME PATIENT 29.3 SEC (12.2-14.7)
--- NOTE | 2019-09-28 18:31 | NUR ---
MACHO MAIER admitted to room 425-1, with an admitting diagnosis of osteomeylitis, on 09/28/19 from ED via stretcher, accompanied by staff .MACHO MAIER introduced to surroundings, call light, bed controls, phone, TV, temperature control, lights, meal times, smoking policy, visitor policy, side rail policy, bathrooms and showers. Patient Rights given to patient in the handbook. MACHO MAIER verbalizes understanding that [facility] is not responsible for the loss or damage to any personal effects or valuables that are kept in the patients posession during their hospitalization. MACHO MAIER verbalizes understanding of Interdisciplinary Patient Education. Patient and/or family were informed about the Rapid Response Team and its purpose.
[2019-09-28 18:41] VITALS: BP 145/69
[2019-09-28] MEDS ORDERED: VANCOMYCIN 1 GM/NS 250 ML IVPB IV ONE ×2 (19:30)
--- NOTE | 2019-09-28 19:47 | History & Physical ---
ESTHER LEONARDO,MED STUDENT [birth year]1946: HPI History of Present Illness: Sigifredo Gray is a 73 year old male who is being admitted with osteomyelitis. He states he has had a wound on his right foot for about one month. He is unsure of how it started. He states it was healing well initially, but his right calf and leg started swelling and turning red about a week ago. He was started on doxycycline by his PCP and cultures were obtained. They showed that the infecti on had spread to the bone, and he was told to come to the ER to be admitted. He is a diabetic and takes metformin. He denies fever or chills. Source: patient Exam Limitations: no limitations Date seen by provider: Sep 28, 2019 Time Seen by Provider: 06:05 Attending Physician Austen Darby MD PCP Mohamud Salas MD Consult Date of Admission Sep 28, 2019 at 17:36 Home Medications Home Medications Reviewed patient Home Medication Reconciliation performed by pharmacy medication reconciliations cardiac catheterization technician and/or nursing. Patients Allergies have been reviewed. Allergies Coded Allergies: No Known Drug Allergies (Unverified , 10/25/17) LBB-Cvrvnj-Nzynno Hx Patient Social History Alcohol Use: Regular Use (4-5 glasses of wine per day) Recreational Drug Use: No Smoking Status: Current Everyday Smoker Type Used: Cigars 2nd Hand Smoke Exposure: Yes Recent Foreign Travel: No Contact w/other who traveled: No Recent Hopitalizations: No Recent Infectious Disease Expo: No Immunizations Up To Date Tetanus Booster (TDap): Unknown Date of Pneumonia Vaccine: Aug 26, 2015 Date of Influenza Vaccine: May 26, 2019 Past Medical History 1. Atrial Fibrillation 2. Hypertension 3. Cardiomegaly 4. Neuropathy 5. GERD 6. Hepatitis 7. Diabetes Mellitus, non insulin dependent 8. Anemia Surgical History: 1. right foot/ankle 2. thumb skin graft 3. tonsilectomy Family Medical History Significant Family History: No Pertinent Family Hx, Cancer (mother-breast, father-unknown), Diabetes (mother, brother) Family History: Diabetes mellitus G8 BROTHER FH: testicular cancer 19 FATHER Unknown cancer 19 MOTHER Review of Systems (CHC) Constitutional: No dizziness, No fever; malaise; No weakness EENTM: No ear pain, No blurred vision, No double vision, No eye pain, No nose congestion Respiratory: No cough, No short of breath, No wheezing Cardiovascular: No chest pain; edema, other (irregular heartbeat) Gastrointestinal: abdominal pain; No constipation, No diarrhea, No nausea, No vomiting Genitourinary: No dysuria, No frequency Musculoskeletal: No joint pain, No muscle pain Skin: other (open wound to right foot ) Psychiatric/Neurological: Denies Headache; Numbness (hands and feet), Tingling (hands and feet) Other Hematologic: on blood thinners, reports easy bleeding and bruising Physical Exam-([facility]) Physical Exam Vital Signs VS - Last 72 Hours, by Label 09/28/19 09/28/19 09/28/19 16:08 18:20 18:41 Temp 36.7 36.7 36.6 Pulse 84 84 81 Resp 16 20 B/P (MAP) 138/71 (93) 135/78 (93) 145/69 Pulse Ox 94 94 O2 Delivery Room Air Room Air Room Air Capillary Refill : Less Than 3 Seconds General Appearance: WD/WN, no apparent distress Eyes: Bilateral Eye EOMI HEENT: No scleral icterus (R), No scleral icterus (L), No pharyngeal erythema; other (pinpoint pupils ) Neck: non-tender; No lymphadenopathy (R), No lymphadenopathy (L) Respiratory: lungs clear, no respiratory distress, no accessory muscle use Cardiovascular: regular rate, rhythm, other (murmur heard at right sternal border and apex) Peripheral Pulses: 2+ Dorsalis Pedis (R), 2+ Left Dors-Pedis (L), 2+ Radial Pulses (R), 2+ Radial Pulses (L) Gastrointestinal: normal bowel sounds, non tender, soft; No distended Extremities: pedal edema, swelling, other (open wound to pedal surface of right 5th metatarsal, serosanginous drainage) Neurologic/Psychiatric: alert, normal mood/affect, oriented x 3 Skin: normal color, warm/dry Assessment/Plan Assessment/Plan Assessment & Plan Assessment: -Osteomyelitis of right 5th metatarsal -Diabetes Mellitus, non-insulin dependent -Hyponatremia Plan: -IV vancomycin and zosyn -fluid restriction AUSTEN DARBY MD 09/28/19 2201: HPI History of Present Illness: Time Seen by Provider: 18:15 Home Medications Allergies Coded Allergies: No Known Drug Allergies (Unverified , 10/25/17) IMH-Nacuho-Vkyyrj Hx Family Medical History Family History: Diabetes mellitus G8 BROTHER FH: testicular cancer 19 FATHER Unknown cancer 19 MOTHER Physical Exam-([facility]) Physical Exam General Appearance: no apparent distress Eyes: Bilateral Eye EOMI Respiratory: lungs clear, no respiratory distress, no accessory muscle use Cardiovascular: regular rate, rhythm Gastrointestinal: normal bowel sounds, non tender, soft Extremities: pedal edema, other (open wound to pedal surface of right 5th metatarsal, serosanginous drainage) Neurologic/Psychiatric: alert, normal mood/affect Assessment/Plan Assessment/Plan Admission Status: Inpatient Order (span 2 midnights) Reason for Inpatient Admission: Osteomyelitis with underlying DMII Assessment & Plan Osteomyelitis- Surgery consult, vanc/zosyn Hyponatremia- was an issue at last admission, free fluid restriction, NS, consider further work-up if not improved with volume Supervisory-Addendum Brief Verification & Attestation Participated in pt care: history, MDM, physical Personally performed: exam, history, MDM Care discussed with: Medical Student Procedures: n/a Verification and Attestation of Medical Student E/M Service A medical student performed this service in my presence. I reviewed and verified all information documented by the medical student and made modifications to such information, when appropriate. I personally performed the physical exam and medical decision making. Austen Darby, Sep 28, 2019,22:01 ESTHER LEONARDO,MED STUDENT Sep 28, 2019 19:47 AUSTEN DARBY MD Sep 28, 2019 22:01
[2019-09-28] MEDS ORDERED: NS IV 1000 ML 1,000 ML ONE (19:58)
[2019-09-28 20:00] VITALS: BP 132/77
[2019-09-28] MEDS ORDERED: ANTACID SUSP 30 ML UDC (MYLANTA) PO PRN (20:00)
[2019-09-28] MEDS ORDERED: SENNA W/DOCUSATE (SENOKOT S) TABLET PO PRN (20:00)
[2019-09-28] MEDS ORDERED: ONDANSETRON 4 MG/2 ML (SDV) Z0FRAN IV PRN (20:00)
[2019-09-28] MEDS ORDERED: ONDANSETRON 4 MG (ZOFRAN) ORAL DISSOLVE TAB SL PRN (20:00)
[2019-09-28] MEDS: NS IV 1000 ML 1,000 ML IV SCH (20:10)
[2019-09-28] MEDS ORDERED: LORazepam INJ 2 MG/ML (ATIVAN) VIAL ONE (20:14)
[2019-09-28] MEDS ORDERED: LORazepam INJ 2 MG/ML (ATIVAN) VIAL IVP NR (20:24)
[2019-09-28] MEDS: MAGNESIUM OXIDE (MAG-OX)400 MG TAB PO SCH (21:33)
--- NOTE | 2019-09-28 22:25 | NUR ---
DR DARBY NOTIFIED OF PTS DVT SCORE. SHE ORDERED TO HOLD OFF ON ORDER TONIGHT AND TOMORROW WHEN POSSIBLE SURGERY IS SCHEDULED SHE WILL CONTINUE WITH ORDER OR HOLD TILL AFTER SURGERY.
[2019-09-28] MEDS: PIPERACILLIN/TAZO 4.5 GM/NS 100 ML IV SCH ×2 (23:10)
[2019-09-29] VITALS: BP 156/80
[2019-09-29] MEDS ORDERED: LORazepam 1 MG (ATIVAN) TAB PO PRN (00:30)
--- NOTE | 2019-09-29 00:31 | NUR ---
PT IS ON END TIDAL, CO2 IS LOW AT THIS TIME. PT IS IN AND OUT OF SLEEP. HE DID SCORE HIGH ENOUGH ON CIWA SCALE FOR 1 MG ATIVAN. I CALLED RT, SPOKE TO AYLA, SHE RECOMMENDED TO REPOSITION PT AND TO HOLD ATIVAN D/T C02 BEING LOW. ATIVAN NOT ADMINISTERED AT THIS TIME
--- NOTE | 2019-09-29 03:49 | NUR ---
PT HAS BEEN ASLEEP SINCE 29. HE HAD REFUSED BEING REPOSITIONED OR TO PUT HEAD OF BED DOWN. HE TOLD STAFF HE HAS SLEPT IN A CHAIR FOR 30 YEARS. CONTINUE TO MONITOR AND USE CIWA SCALE Q H ORDERED.
[2019-09-29 04:00] VITALS: BP 150/77
[2019-09-29] MEDS: NS IV 1000 ML 1,000 ML IV SCH ×3 (05:27→20:58)
[2019-09-29] MEDS: LORazepam INJ 2 MG/ML (ATIVAN) VIAL IV PRN ×2 (05:31→20:48)
[2019-09-29] MEDS: THIAMINE 100 MG (VITAMIN B-1) TAB PO SCH (06:33)
[2019-09-29] MEDS: PIPERACILLIN/TAZO 4.5 GM/NS 100 ML IV SCH ×8 (06:33→23:01)
[2019-09-29] MEDS: MULTIVIT W/MINERALS TAB (THERAGRAN M) PO SCH (06:33)
[2019-09-29 06:49] LABS: BASOPHILS % (AUTO) 1 % (0-10); EOSINOPHILS # (AUTO) 0.2 10^3/uL (0.0-0.3); EOSINOPHILS % (AUTO) 2 % (0-10); HEMATOCRIT 33 % (40-54); HEMOGLOBIN 11.5 G/DL (13.3-17.7); LYMPHOCYTES # (AUTO) 1.5 X 10^3 (1.0-4.0); LYMPHOCYTES % (AUTO) 20 % (12-44); MEAN CORPUSCULAR HEMOGLOBIN 32 PG (25-34); MEAN CORPUSCULAR HGB CONC 34 G/DL (32-36); MEAN CORPUSCULAR VOLUME 92 FL (80-99); MEAN PLATELET VOLUME 9.1 FL (7.4-10.4); MONOCYTES # (AUTO) 0.7 X 10^3 (0.0-1.0); MONOCYTES % (AUTO) 9 % (0-12); NEUTROPHILS # (AUTO) 5.3 X 10^3 (1.8-7.8); NEUTROPHILS % (AUTO) 69 % (42-75); PLATELET COUNT 285 10^3/uL (130-400); RED CELL DISTRIBUTION WIDTH 14.4 % (10.0-14.5); WHITE BLOOD COUNT 7.6 10^3/uL (4.3-11.0)
[2019-09-29 07:16] LABS: ALANINE AMINOTRANSFERASE 10 U/L (0-55); ALBUMIN 2.6 GM/DL (3.2-4.5); ALKALINE PHOSPHATASE 161 U/L (40-136); BILIRUBIN,TOTAL 0.7 MG/DL (0.1-1.0); BUN/CREATININE RATIO 8; CALCIUM 8.5 MG/DL (8.5-10.1); CARBON DIOXIDE 22 MMOL/L (21-32); CHLORIDE 99 MMOL/L (98-107); CREATININE SERUM 0.63 MG/DL (0.60-1.30); GFR ESTIMATED > 60; GLUCOSE 103 MG/DL (70-105); POTASSIUM 4.2 MMOL/L (3.6-5.0); SODIUM 128 MMOL/L (135-145); TOTAL PROTEIN 6.3 GM/DL (6.4-8.2)
[2019-09-29] MEDS: FOLIC ACID 1 MG TAB PO SCH (07:46)
[2019-09-29] MEDS: VANCOMYCIN 1500 MG/NS 500 ML IVPB IV SCH ×4 (07:46→19:18)
[2019-09-29] MEDS: MAGNESIUM OXIDE (MAG-OX)400 MG TAB PO SCH ×2 (07:46→20:41)
[2019-09-29 08:00] VITALS: BP 134/61
--- NOTE | 2019-09-29 10:12 | Progress Note ---
Subjective Date Seen by a Provider: Sep 29, 2019 Time Seen by a Provider: 10:00 Subjective/Events-last exam doing well. no complaints, decreased redness erythema right foot. no fev er/chills. Focused Exam Lactate Level 09/28/19 16:30: Lactic Acid Level 0.95 Objective Exam Vital Signs Date Time Temp Pulse Resp B/P (MAP) Pulse Ox O2 Delivery O2 Flow Rate FiO2 09/29/19 08:00 36.4 82 18 134/61 (85) 97 Room Air 09/29/19 07:00 77 09/29/19 04:00 36.4 81 18 150/77 (101) 95 Room Air 09/29/19 01:32 Room Air 21 09/29/19 01:00 78 09/29/19 00:00 36.0 78 18 156/80 (105) 91 Room Air 09/28/19 20:35 86 09/28/19 20:22 Room Air 21 09/28/19 20:00 36.2 79 20 132/77 (95) 94 Room Air 09/28/19 19:00 Room Air 09/28/19 18:41 36.6 81 20 145/69 94 Room Air 09/28/19 18:20 36.7 84 16 135/78 (93) 94 Room Air 09/28/19 16:08 36.7 84 138/71 (93) Room Air I & O 09/29/19 06:59 Intake Total 1890 ml Balance 1890 ml Capillary Refill : Less Than 3 Seconds General Appearance: No Apparent Distress HEENT: PERRL/EOMI Neck: Full Range of Motion Respiratory: Chest Non Tender, Wheezing Cardiovascular: Regular Rate, Rhythm Gastrointestinal: normal bowel sounds, non tender, soft Extremity: Other (open wound plantar lateral right distal foot) Neurologic/Psychiatric: Alert, Oriented x3 Skin: Normal Color Lymphatic: No Adenopathy Results Lab Laboratory Tests 09/28/19 16:30: White Blood Count 8.4, Red Blood Count 3.96L, Hemoglobin 12.5L, Hematocrit 36L, Mean Corpuscular Volume 91, Mean Corpuscular Hemoglobin 32, Mean Corpuscular Hemoglobin Concent 35, Red Cell Distribution Width 14.3, Platelet Count 310, Mean Platelet Volume 8.8, Neutrophils (%) (Auto) 64, Lymphocytes (%) (Auto) 23, Monocytes (%) (Auto) 11, Eosinophils (%) (Auto) 2, Basophils (%) (Auto) 1, Neutrophils # (Auto) 5.4, Lymphocytes # (Auto) 1.9, Monocytes # (Auto) 0.9, Eosinophils # (Auto) 0.2, Basophils # (Auto) 0.0, Prothrombin Time 29.3H, INR Comment 2.6H, Sodium Level 125*L, Potassium Level 4.7, Chloride Level 93L, Carbon Dioxide Level 24, Anion Gap 8, Blood Urea Nitrogen 5L, Creatinine 0.66, Estimat Glomerular Filtration Rate > 60, BUN/Creatinine Ratio 8, Glucose Level 118H, Lactic Acid Level 0.95, Calcium Level 8.9, Corrected Calcium 9.8, Total Bilirubin 0.7, Aspartate Amino Transf (AST/SGOT) 14, Alanine Aminotransferase (ALT/SGPT) 11, Alkaline Phosphatase 197H, Total Protein 7.1, Albumin 2.9L 09/28/19 21:26: Glucometer 153H 09/29/19 05:54: Glucometer 114H 09/29/19 06:21: White Blood Count 7.6, Red Blood Count 3.62L, Hemoglobin 11.5L, Hematocrit 33L, Mean Corpuscular Volume 92, Mean Corpuscular Hemoglobin 32, Mean Corpuscular Hemoglobin Concent 34, Red Cell Distribution Width 14.4, Platelet Count 285, Mean Platelet Volume 9.1, Neutrophils (%) (Auto) 69, Lymphocytes (%) (Auto) 20, Monocytes (%) (Auto) 9, Eosinophils (%) (Auto) 2, Basophils (%) (Auto) 1, Neutrophils # (Auto) 5.3, Lymphocytes # (Auto) 1.5, Monocytes # (Auto) 0.7, Eo sinophils # (Auto) 0.2, Basophils # (Auto) 0.0, Sodium Level 128L, Potassium Level 4.2, Chloride Level 99, Carbon Dioxide Level 22, Anion Gap 7, Blood Urea Nitrogen 5L, Creatinine 0.63, Estimat Glomerular Filtration Rate > 60, BUN/Creatinine Ratio 8, Glucose Level 103, Calcium Level 8.5, Corrected Calcium 9.6, Total Bilirubin 0.7, Aspartate Amino Transf (AST/SGOT) 16, Alanine Aminotransferase (ALT/SGPT) 10, Alkaline Phosphatase 161H, Total Protein 6.3L, Albumin 2.6L Assessment/Plan Assessment/Plan Assess & Plan/Chief Complaint 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 plan for resection and vac placement. Clinical Quality Measures DVT/VTE Risk/Contraindication: Risk Factor Score Per Nursin RFS Level Per Nursing on Admit: 4+=Very High Other: PT POSSIBLY HAS SURGERY IN NEXT FEW DAYS. DR DARBY ORDERED TO HOLD UNTIL THEY KNOW WHEN SURGERY WILL BE SCHEDULED IN CASE SURGEON WANTS TO PERFORM SURGERY TODAY KRISTINA CONTRERAS MD Sep 29, 2019 10:12
--- NOTE | 2019-09-29 10:21 | Progress Note-Pre Operative ---
Pre-Operative Progress Note H&P Reviewed The H&P was reviewed, patient examined and no changes noted. Date Seen by Provider: Sep 29, 2019 Time Seen by Provider: 10:20 Date H&P Reviewed: Sep 29, 2019 Time H&P Reviewed: 10:20 Pre-Operative Diagnosis: 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 KRISTINA CONTRERAS MD Sep 29, 2019 10:20
--- NOTE | 2019-09-29 10:25 | CONSULTATION REPORT ---
DATE OF SERVICE: 09/28/2019 ADMITTING PHYSICIAN: Dr. Landeros. ATTENDING PRIMARY CARE PHYSICIAN: Dr. Salas. HISTORY OF PRESENT ILLNESS: The patient is a 73-year-old male, who presented to the emergency department with the right foot infection. He has a longstanding history of diabetes and has had diabetic foot issues for years. He has had an issue with the right foot along the lateral aspect for several months and has been on several rounds of antibiotics. He has also seen by wound care and subsequently released. He was seen by his primary care physician where there was no open wound identified and wound cultures done, which were positive. Upon examination, there was some redness, erythema as well as open wounds along the plantar aspect of the right fifth metacarpophalangeal joint with some surrounding redness and erythema. X-ray consistent with osteomyelitis of the fifth metatarsal and digit. PAST MEDICAL HISTORY: Insulin-dependent diabetes, hypertension, atrial fibrillation, cardiomyopathy, recurrent urinary tract infection, neuralgia, gastroesophageal reflux disease, history of hepatitis, anxiety and depression. PAST SURGICAL HISTORY: 1. Tonsillectomy. 2. Orthopedic procedure. ALLERGIES: No known drug allergies. MEDICATIONS: 1. Digoxin 125 mcg daily. 2. Diltiazem 240 mg daily. 3. Doxycycline 100 mg b.i.d. 4. Folic acid 1 mg daily. 5. Furosemide 20 mg daily. 6. Gabapentin 300 mg t.i.d. 7. Insulin before meals and night. 8. Lisinopril 10 mg daily. 9. Nicotine patch daily. 10. Protonix 40 mg daily. 11. Potassium 20 mEq daily. 12. Pregabalin 50 mg b.i.d. 13. Rivaroxaban 20 mg daily. 14. Sodium hypochlorite b.i.d. SOCIAL HISTORY: Positive smoke. Positive daily alcohol. FAMILY HISTORY: Father, testicular cancer. Brother diabetes. REVIEW OF SYSTEMS: This is a well-nourished male in no acute distress. He is not experiencing any shortness of breath or difficulty breathing. No chest pain, palpitations, diaphoresis. No nausea, vomiting, no diarrhea, constipation, no red blood per rectum, no dark tarry stools. No fever, chills, no recent inadvertent weight loss. All other review of systems negative. PHYSICAL EXAMINATION: VITAL SIGNS: Temperature 36.7, blood pressure 138/71, pulse 84 and pulse ox 94% on room air. CHEST: Few scattered rales bilaterally. HEART: Regular, no murmurs. EXTREMITIES: Bilateral lower extremity edema with chronic venous insufficiency changes as well as bilateral ankle and feet changes consistent with Charcot as foot. HEENT: No scleral icterus. NECK: No cervical lymphadenopathy. ABDOMEN: Soft, nontender and nondistended. SKIN: Along the right lateral foot along the plantar aspect, there are three areas of opening with drainage with some mild surrounding redness and erythema. LABORATORY DATA: WBC 8.4, hemoglobin 12.5, hematocrit 36 and platelets 310. BUN 5 and creatinine 0.66. ASSESSMENT AND PLAN: A 73-year-old male with a history of insulin-dependent diabetes with diabetic foot ulceration with failed medical management of open wound of the right lateral foot and osteomyelitis encompassing the fifth metatarsal and digit. The option was given to proceed with a transmetatarsal amputation and wound VAC closure versus a [id number]-[id number] amputation and he would like to proceed with a more conservative approach and proceed with the former. We will continue with IV antibiotics and plan for right fifth metatarsal and phalanx amputation with secondary closure with a wound VAC. Job ID: [id number] DocumentID: [id number] Dictated Date: 09/29/2019 10:08:58 Senior Javascript Engineer Date: 09/29/2019 10:23:55 Dictated By: KRISTINA CONTRERAS MD [facility] CENTERBrodie
[2019-09-29 12:00] VITALS: BP 129/61
[2019-09-29] MEDS ORDERED: DOXY100C2 PO (12:19)
[2019-09-29] MEDS ORDERED: METF-397 PO (12:40)
--- NOTE | 2019-09-29 12:40 | NUR ---
CM/SS visited with patient for discharge planning consult. Home Health: The patient is currently using [facility]. [facility] called the patients nurse for update on discharge plans. Will contact them if family is still wanting to use them. DPOA: Is both [place] of the patient, Chantal ([phone]) and Gabriella ([phone]). They both live out of the state. Workers: Chantal stated that they have hired two workers (not licensed) to clean, cook, and change the patient when needed. The patient was lying in bed at time of visit. He appeared to be slightly confused when trying to have a conversation. He could not tell this SS much. CM/SS asked the patient if he currently lived at home and he stated "no" but when asked if his address (one of face sheet) was current and correct he stated "yes". The patients DPOA Chantal states that he does drink alcohol in the evenings and that he does well with healing in a nursing facility due to him being monitored. She thinks he would be safe to go back home after wound treatment. Chantal states that she is worried that [facility] is not being consistent with his treatment. CM/SS will contact the other DPOA to formulate discharge plans.
--- NOTE | 2019-09-29 12:58 | NUR ---
UNABLE TO GET THE PATIENT AWAKE TO DISCUSS HIS MEDICATIONS. I [facility] [place] A CURRENT MEDICATION LIST SENT OVER FROM [facility] IN [place]. [facility] FILLED: 09-22-19 METFORMIN 500MG DAILY #30 09-22-19 XARELTO 20MG DAILY #30 09-08-19 LYRICA 50MG BID #60 09-08-19 FUROSEMIDE 20MG DAILY #30 09-08-19 LISINOPRIL 10MG DAILY #30 09-08-19 PANTOPRAZOLE 40MG DAILY #30 09-08-19 POTASSIUM CHLORIDE 20MEQ DAILY #30 09-08-19 DIGOXIN 0.125MG DAILY #30 08-25-19 DILTIAZEM ER 240MG DAILY #90 [facility] FILLED: 09-21-19 DOXYCYCLINE HYCLATE 100MG CAP BID #20 (VERIFIED WITH THEM IT WAS PICKED UP) PREVIOUS TO THE ABOVE FILL THEY HAVE NOT FILLED ANYTHING SINCE 2016 IN ADDITION TO THE ABOVE FILLED MEDICATIONS THE LIST FROM [facility] INCLUDES: VITAMIN B-12 DAILY (PATIENT PREVIOUSLY REPORTED NO OTC MEDS AT LAST VISIT) TRAZODONE 150MG HS (LAST FILLED #30 01-09-19) FOLIC ACID 1MG DAILY (LAST FILLED #30 04-24-19) CHLORDIAZEPOXIDE HCL 25MG TID (NOT ON FILE WITH [facility]) I DID NOT INCLUDE ANY OF THE ABOVE 4 MEDICATIONS ON THE MED REC SINCE THEY HAVE NOT BEEN FILLED RECENTLY.
--- NOTE | 2019-09-29 15:18 | Progress Note ---
ESTHER LEONARDO,MED STUDENT 09/29/19 1518: Subjective Subjective/Events-last exam Patient seen and examined this morning. He had just recently been given Ativan per [facility] protocol. He is sleeping as I enter the room and is awoken easily. He states he is feeling fine. Denies feeling fever/chills or increase in pain Review of Systems General: Chills HEENT: No Head Aches Pulmonary: No Dyspnea, No Cough Cardiovascular: Edema; No: Chest Pain Gastrointestinal: No: Nausea, Vomiting, Abdominal Pain Focused Exam Lactate Level 09/28/19 16:30: Lactic Acid Level 0.95 Time of Focused Exam: 09:23 Respiratory: Lungs Clear, No Accessory Muscle Use Cardiovascular: Regular Rate, Rhythm, Systolic Murmur (11/29), Other (pedal edema) Peripheral Pulses: 1+ Dorsalis Pedis (R), 1+ Left Dors-Pedis (L); 2+ Radial Pulses (R), 2+ Radial Pulses (L) Skin: normal color, warm/dry, other (dressing to right foot in place, no drainage noted) Objective Exam Last Set of Vital Signs Vital Signs Date Time Temp Pulse Resp B/P (MAP) Pulse Ox O2 Delivery O2 Flow Rate FiO2 09/29/19 13:00 88 09/29/19 12:00 36.8 18 129/61 (83) 94 Room Air 09/29/19 01:32 21 Capillary Refill : Less Than 3 Seconds I&O Intake and Output 09/29/19 00:00 Intake Total 720 ml Balance 720 ml Intake Oral 100 ml IV Total 620 ml Daily Weight Change No No Results/Procedures Lab Laboratory Tests 09/28/19 16:30: White Blood Count 8.4, Red Blood Count 3.96L, Hemoglobin 12.5L, Hematocrit 36L, Mean Corpuscular Volume 91, Mean Corpuscular Hemoglobin 32, Mean Corpuscular Hemoglobin Concent 35, Red Cell Distribution Width 14.3, Platelet Count 310, Mean Platelet Volume 8.8, Neutrophils (%) (Auto) 64, Lymphocytes (%) (Auto) 23, Monocytes (%) (Auto) 11, Eosinophils (%) (Auto) 2, Basophils (%) (Auto) 1, Neutrophils # (Auto) 5.4, Lymphocytes # (Auto) 1.9, Monocytes # (Auto) 0.9, Eosinophils # (Auto) 0.2, Basophils # (Auto) 0.0, Prothrombin Time 29.3H, INR Comment 2.6H, Sodium Level 125*L, Potassium Level 4.7, Chloride Level 93L, Carbon Dioxide Level 24, Anion Gap 8, Blood Urea Nitrogen 5L, Creatinine 0.66, Estimat Glomerular Filtration Rate > 60, BUN/Creatinine Ratio 8, Glucose Level 118H, Lactic Acid Level 0.95, Calcium Level 8.9, Corrected Calcium 9.8, Total Bilirubin 0.7, Aspartate Amino Transf (AST/SGOT) 14, Alanine Aminotransferase (ALT/SGPT) 11, Alkaline Phosphatase 197H, Total Protein 7.1, Albumin 2.9L 09/28/19 21:26: Glucometer 153H 09/29/19 05:54: Glucometer 114H 09/29/19 06:21: White Blood Count 7.6, Red Blood Count 3.62L, Hemoglobin 11.5L, Hematocrit 33L, Mean Corpuscular Volume 92, Mean Corpuscular Hemoglobin 32, Mean Corpuscular Hemoglobin Concent 34, Red Cell Distribution Width 14.4, Platelet Count 285, Me an Platelet Volume 9.1, Neutrophils (%) (Auto) 69, Lymphocytes (%) (Auto) 20, Monocytes (%) (Auto) 9, Eosinophils (%) (Auto) 2, Basophils (%) (Auto) 1, Neutrophils # (Auto) 5.3, Lymphocytes # (Auto) 1.5, Monocytes # (Auto) 0.7, Eosinophils # (Auto) 0.2, Basophils # (Auto) 0.0, Sodium Level 128L, Potassium Level 4.2, Chloride Level 99, Carbon Dioxide Level 22, Anion Gap 7, Blood Urea Nitrogen 5L, Creatinine 0.63, Estimat Glomerular Filtration Rate > 60, BUN/Creatinine Ratio 8, Glucose Level 103, Calcium Level 8.5, Corrected Calcium 9.6, Total Bilirubin 0.7, Aspartate Amino Transf (AST/SGOT) 16, Alanine Aminotransferase (ALT/SGPT) 10, Alkaline Phosphatase 161H, Total Protein 6.3L, Albumin 2.6L 09/29/19 11:16: Glucometer 117H Assessment/Plan Assessment/Plan Assessment & Plan Assessment: -Osteomyelitis of right 5th metatarsal -Diabetes Mellitus, non-insulin dependent -Hyponatremia -Systolic murmur Plan: -IV vancomycin and zosyn, surgery consulted for osteomyelitis, should go to OR soon -Only slight improvement of hyponatremia with fluid restriction and NS, will do further workup -Echocardiogram -Continue [facility] protocol Clinical Quality Measures DVT/VTE Risk/Contraindication: Risk Factor Score Per Nursin RFS Level Per Nursing on Admit: 4+=Very High Other: PT POSSIBLY HAS SURGERY IN NEXT FEW DAYS. DR RESENDEZ ORDERED TO HOLD UNTIL THEY KNOW WHEN SURGERY WILL BE SCHEDULED IN CASE SURGEON WANTS TO PERFORM SURGERY TODAY MARCIE RESENDEZ MD 09/29/19 1614: Assessment/Plan Assessment/Plan Assessment & Plan Osteomyelitis- vanc and zosyn, Surgery consulted, plan for excision and wound vac DMII- sliding scale insulin Hyponatremia- likely multifactorial, has history of alcohol use and CHF and liver disease. Check urine and serum osmolality and urine electrolytes. CHF- outpatient chart review notes diagnoses of CHF, resume home furosemide and digoxin Atrial fibrillation- outpatient chart review notes, on rivaroxabn, hold in anticipate of surgery, resume as soon as possible. Supervisory-Addendum Brief Verification & Attestation Participated in pt care: history, MDM, physical Personally performed: exam, history, MDM Care discussed with: Medical Student Procedures: n/a Verification and Attestation of Medical Student E/M Service A medical student performed this service in my presence. I reviewed and verified all information documented by the medical student and made modifications to such information, when appropriate. I did not check peripheral pulses, but agree with remainder of exam documentation. See my assessment and plan section. I personally performed the physical exam and medical decision making. Marcie Resendez, Sep 29, 2019,16:11 ESTHER LEONARDO,MED STUDENT Sep 29, 2019 15:18 MARCIE RESENDEZ MD Sep 29, 2019 16:14
--- NOTE | 2019-09-29 15:36 | NUR ---
RD ASSESSMENT PMHx: afib; HTN; GERD; hepatitis; DM; ETOH abuse PT INTERACTION: Pt was awake and pleasant during nutrition assessment. Pt states current appetite is poor, but getting better. Note avg PO intake of 75% x2meal, per chart review. Pt states following a regular diet at home and has no issues with chewing/swallowing food. Pt states no recent issues with n/v/c/d at this time. Note last BM was 2/4 and pt currently on bowel regimen of senna PRN, per chart review. Pt states no recent wt changes. Note recent 8# wt gain x4mon, per chart review. Pt states current DM management is "really good" and states that his recent HbA1c was good, but could not recall what it was. Note pt has presence of wound on right foot, per chart review. ABNORMAL NUTRITION-RELATED LAB VALUES LOW: Na 128; BUN 5; Pro 6.3; alb 2.6 HIGH: alkphos 161 Est. kcal needs: 1785-4746 kcal | 20-25 kcal/kg Est. Pro needs: 120-140 g Pro | 1.2-1.4 g Pro/kg PES STATEMENT: Inadequate protein intake (NI-5.6.1) related to increased protein needs as evidenced by presence of wounds (right foot) INTERVENTION: Continue with current diet order of CHO 60g/m 1snack diet. Add Ensure HP (vary) to meals TID. Provides 160 kcal and 16 g Pro per serving for perceived benefit to wound healing. Will continue to follow and reassess as pt needs and status change. MONITOR/EVALUATE: PO Intake; Plan of Care; Hydration Status; Weight Status; Lab Values Ramesh Esquivel, , RD, LD
[2019-09-29 16:00] VITALS: BP 148/76
[2019-09-29 19:58] VITALS: BP 142/74
[2019-09-29] MEDS: inSUlin ASPART (NovoLOG) 1 UNIT/0.01 ML (CHARGE PER UNIT) SC SCH (20:41)
[2019-09-29] MEDS: PREGABALIN 50 MG (LYRICA) CAP PO SCH (20:41)
[2019-09-30] VITALS (14 sets, daily range): BP systolic 96–182; BP diastolic 59–135
[2019-09-30] MEDS: LORazepam INJ 2 MG/ML (ATIVAN) VIAL IV PRN ×3 (02:00→08:46)
--- NOTE | 2019-09-30 04:50 | NUR ---
ELECTRICAL FOREMAN, STAR, NOTIFIED THIS RN THAT PT HAS SURGERY AT 1300 TODAY, 09/30/19. THIS RN LET HIM KNOW THERE WASNT ANY ORDER FOR NPO FOR PT. STAR ADVISED TO MAKE PT NPO AT THIS TIME. PCT, MYCHAL, MADE AWARE OF THAT PT IS TO BE NPO AT THIS TIME. Addendum: 09/30/19 at 0552 by SAMANTHA RICO RN NURSES NOTE FROM DR CONTRERAS FOUND BY THIS NURSE OPTOMETRIC AIDE WITH NPO ORDERS FOR AFTER 0200 THIS AM. THIS NURSE OPTOMETRIC AIDE AND PCT HAD NOT GIVEN PT ANYTHING TO DRINK OR EAT AFTER MIDNIGHT.
[2019-09-30] MEDS: NS IV 1000 ML 1,000 ML IV SCH ×2 (04:56→14:19)
[2019-09-30] MEDS: THIAMINE 100 MG (VITAMIN B-1) TAB PO SCH (06:15)
[2019-09-30] MEDS: KCL 20 MEQ TAB (K-DUR) PO SCH (06:15)
[2019-09-30] MEDS: MULTIVIT W/MINERALS TAB (THERAGRAN M) PO SCH (06:16)
[2019-09-30] MEDS: PIPERACILLIN/TAZO 4.5 GM/NS 100 ML IV SCH ×4 (06:21→18:21)
[2019-09-30] MEDS ORDERED: TROUGH ORDER-PHARMACY XX NR (06:30)
[2019-09-30 06:38] LABS: HEMOGLOBIN 11.4 G/DL (13.3-17.7); MEAN PLATELET VOLUME 9.2 FL (7.4-10.4); RED CELL DISTRIBUTION WIDTH 14.4 % (10.0-14.5); WHITE BLOOD COUNT 7.5 10^3/uL (4.3-11.0)
[2019-09-30 06:57] LABS: ALANINE AMINOTRANSFERASE 14 U/L (0-55); ALBUMIN 2.6 GM/DL (3.2-4.5); ALKALINE PHOSPHATASE 150 U/L (40-136); BILIRUBIN,TOTAL 0.7 MG/DL (0.1-1.0); BUN/CREATININE RATIO 8; CALCIUM 8.4 MG/DL (8.5-10.1); CARBON DIOXIDE 23 MMOL/L (21-32); CHLORIDE 104 MMOL/L (98-107); CREATININE SERUM 0.64 MG/DL (0.60-1.30); GFR ESTIMATED > 60; GLUCOSE 93 MG/DL (70-105); POTASSIUM 3.9 MMOL/L (3.6-5.0); SODIUM 133 MMOL/L (135-145); TOTAL PROTEIN 6.5 GM/DL (6.4-8.2)
[2019-09-30] MEDS: inSUlin ASPART (NovoLOG) 1 UNIT/0.01 ML (CHARGE PER UNIT) SC SCH ×4 (06:58→21:39)
[2019-09-30 07:03] LABS: VANCOMYCIN,TROUGH 23.6 UG/ML (10.0-20.0)
[2019-09-30] MEDS: VANCOMYCIN 1500 MG/NS 500 ML IVPB IV SCH ×2 (07:32)
--- NOTE | 2019-09-30 07:32 | NUR ---
PT'S VANCO TROUGH WAS 23.6 TODAY. THIS RN CONTACTED PHARMACY AND ALERTED OF LEVEL BEING ABOVE NORMAL.
[2019-09-30] MEDS: FOLIC ACID 1 MG TAB PO SCH ×2 (08:27→09:56)
[2019-09-30] MEDS: PANTOPRAZOLE 40 MG (PROTONIX) TAB PO SCH ×2 (08:27→09:57)
[2019-09-30] MEDS: DIGOXIN 0.125 MG (LANOXIN) TAB PO SCH (08:27)
[2019-09-30] MEDS: PREGABALIN 50 MG (LYRICA) CAP PO SCH ×3 (08:28→20:13)
[2019-09-30] MEDS: MAGNESIUM OXIDE (MAG-OX)400 MG TAB PO SCH ×2 (08:28→20:13)
[2019-09-30] MEDS: FUROSEMIDE 20 MG (LASIX) TAB PO SCH ×2 (08:28→09:56)
[2019-09-30] MEDS: lisINopril 10 MG (PRINIVIL) TABLET PO SCH (08:29)
--- NOTE | 2019-09-30 09:05 | NUR ---
patient high blood pressure as well as complaint of trouble breathing this AM. this RN was instructed to to stat Troponin and EKG as well as give PO cardiac medications, IV lasix, and hep lock fluids
[2019-09-30] MEDS ORDERED: FUROSEMIDE 40 MG/4 ML INJ (LASIX) IVP NR (09:15)
--- NOTE | 2019-09-30 09:45 | Consultation-Cardiology ---
HPI-Cardiology Cardiology Consultation: Date of Consultation 09/30/19 Time Seen by a Provider: 09:30 Date of Admission 09-28-2019 Attending Physician Marcie Darby MD Admitting Physician Mohamud Salas MD Consulting Physician Rocío Ramirez MD HPI: Chief Complaint: Chest pain A-fib Mr. Gray is a 73 year old male admitted to 425 from the ED on 09-28-2019. He has a right foot wound for which he had previously been following with Dr. Gomez. He was seen by his PCP and found to have osteomylitis. He has been evaluated by Dr. Mackey for partial amputation. He was scheduled for surgery this morning when he reported c/o increasing SOB and chest pressure. He is lethargic at the time of this interview. He awakens fairly easily, but has to continuously be awakened. He did receive IV Ativan recently which may be attributing to some of his lethargy. He has PAF and is currently in a-fib with a controlled rate. He had been on xarelto for stroke prophylaxis, but this is currently on hold d/t surgery. He is currently not reporting any CP. He does report lose cough. Review of Systems-Cardiology Review of Systems Constitutional: No chills Ears/Nose/Throat: No epistaxis Respiratory: As described under HPI Cardiovascular: As described under HPI Gastrointestinal: No diarrhea, No nausea Genitourinary: No hematuria Skin: other (wound to right foot) Psychiatric/Neurological: anxiety, depression Hematologic: No bleeding abnormalities Other comments Limited ROS to the extent it could be obtained is as noted above ILW-Ttlbev-Jlygwh Hx Patient Social History Alcohol Use: Regular Use (4-5 glasses of wine per day) Recreational Drug Use: No Smoking Status: Current Everyday Smoker Type Used: Cigars 2nd Hand Smoke Exposure: Yes Recent Foreign Travel: No Recent Infectious Disease Expo: No Hospitalization with Isolation: Denies Immunizations Up To Date Tetanus Booster (TDap): Unknown Date of Pneumonia Vaccine: Aug 26, 2015 Date of Influenza Vaccine: May 26, 2019 Past Medical History PMH As described under Assessment. Family Medical History Family Medical History: Denies any family h/o CAD Family History: Diabetes mellitus G8 BROTHER FH: testicular cancer 19 FATHER Unknown cancer 19 MOTHER Allergies and Home Medications Allergies Coded Allergies: No Known Drug Allergies (Unverified , 10/25/17) Home Medications Digoxin 125 Mcg Tablet, 125 MCG PO DAILY, (Reported) Diltiazem HCl 240 Mg Cap.er.24h, 240 MG PO DAILY, (Reported) Doxycycline Hyclate 100 Mg Capsule, 100 MG PO BID, (Reported) 10 DAY SUPPLY FILLED 09-21-19 Furosemide 20 Mg Tablet, 20 MG PO DAILY, (Reported) Lisinopril 10 Mg Tablet, 10 MG PO DAILY, (Reported) Metformin HCl 500 Mg Tablet, 500 MG PO DAILY, (Reported) Pantoprazole Sodium 40 Mg Tablet.dr, 40 MG PO DAILY, (Reported) Potassium Chloride 20 Meq Tablet.er, 20 MEQ PO DAILY, (Reported) Pregabalin 50 Mg Capsule, 50 MG PO BID, (Reported) Rivaroxaban 20 Mg Tablet, 20 MG PO DAILY, (Reported) Patient Home Medication List Home Medication List Reviewed: Yes Physical Exam-Cardiology Physical Exam Vital Signs/I&O 09/30/19 10/01/19 10/01/19 10/01/19 22:56 00:00 01:00 04:29 Temp 37.6 37.5 Pulse 93 95 97 Resp 18 18 B/P (MAP) 141/80 (100) 151/79 (103) Pulse Ox 92 95 95 O2 Delivery Nasal Cannula Nasal Cannula Nasal Cannula O2 Flow Rate 3.00 3.00 3.00 10/01/19 10/01/19 10/01/19 07:00 08:00 08:12 Temp 37.2 Pulse 95 95 Resp 18 B/P (MAP) 122/58 (79) Pulse Ox 95 O2 Delivery Nasal Cannula Nasal Cannula O2 Flow Rate 3.00 3.00 10/01/19 00:00 Intake Total 682.5 ml Balance 682.5 ml Capillary Refill : Less Than 3 Seconds Constitutional: well-developed, other (thin) HEENT: hearing is well preserved; No xanthelasmas are seen Neck: No carotid bruit; carotid pulses are 2 + bilaterally Respiratory: No accessory muscle use, No respiratory distress; chest expansion is symmetric, chest is bilaterally symmetric, other (coarse breath sounds with lose cough) Cardiovascular: regular rate-rhythm; No JVD; S1 and S2 Gastrointestinal: No tender; audible bowel sounds Extremities: no lower extremity edema bilateral Neurologic/Psychiatric: other (moves extremities) Skin: normal color, warm/dry, other (dressing to right foot in place, no drainage noted) Data Review Labs Laboratory Tests 09/30/19 10:10: Troponin I < 0.028, Thyroid Stimulating Hormone (TSH) 3.14 09/30/19 11:12: Glucometer 106 09/30/19 14:03: Vancomycin Level Trough 19.0 09/30/19 16:03: Glucometer 103 09/30/19 17:15: Glucometer 109 09/30/19 21:02: Glucometer 188H 10/01/19 05:42: Glucometer 99 10/01/19 05:52: White Blood Count 6.0, Red Blood Count 5.17, Hemoglobin 15.9#, Hematocrit 45, Mean Corpuscular Volume 88, Mean Corpuscular Hemoglobin 31, Mean Corpuscular Hemoglobin Concent 35, Red Cell Distribution Width 12.8, Platelet Count 338, Mean Platelet Volume 10.0, Sodium Level 140, Potassium Level 5.0, Chloride Level 108H, Carbon Dioxide Level 26, Anion Gap 6, Blood Urea Nitrogen 19H, Creatinine 0.89, Estimat Glomerular Filtration Rate > 60, BUN/Creatinine Ratio 21, Glucose Level 89, Calcium Level 9.8 Microbiology 09/28/19 Blood Culture - Preliminary, Resulted No growth 09/28/19 Gram Stain - Final, Resulted 09/28/19 Wound Culture - Preliminary, Resulted Gram Pos Mixed Bacterial [place] Staphylococcus aureus ECG Impression ECG Initial ECG Rhythm: Normal Sinus (10:05 EKG) A/P-Cardiology Assessment/Admission Diagnosis Chest discomfort of undetermined etiology SOB likely multi-factorial r/t diastolic CHF and acute exacerbation of COPD PAF - currently SR (maintained on Dig and Cardizem) Echocardiogram of Sep 30, 2019: LVEF 60-65%. Grade 2 diastolic dysfunction. Mild MR. AoV thickening consistent with sclerosis. RVSP 22mmHg Acute, likely on chronic diastolic CHF Right foot wound with osteomylitis - partial amputation of foot per Dr. Mackey - pending Xarelto for stroke prophylaxis - currently being held pending surgery COPD DM 2 Tobaccoism - cessation advised GERD Anxiety/depression ETOH abuse - reports 4-5 glassed of wine and whiskey daily Discussion and Recomendations Chest discomfort of undetermined etiology - no evidence of ACS thus far - repeat serial troponin and EKG Multi-factorial dyspnea likely d/t diastolic CHF and acute exacerbation of COPD Diuretics as indicated H/O PAF - currently SR - continue Dig and Cardizem (which he has previously been maintained) Echocardiogram as noted above CXR pending Previously on Xarelto for stroke prophylaxis - currently being held pending surgery - advise resumption as soon as possible, when deemed surgically safe Monitor lab Replace electrolytes as indicated Further recs will be based on his hospital course We would like to thank medical services for this consult Clinical Quality Measures DVT/VTE Risk/Contraindication: Risk Factor Score Per Nursin RFS Level Per Nursing on Admit: 4+=Very High Other: PT POSSIBLY HAS SURGERY IN NEXT FEW DAYS. DR DARBY ORDERED TO HOLD UNTIL THEY KNOW WHEN SURGERY WILL BE SCHEDULED IN CASE SURGEON WANTS TO PERFORM SURGERY TODAY ESTHER MACKEY Sep 30, 2019 09:45
[2019-09-30 09:47] LABS: ABG BASE EXCESS -0.5 MMOL/L (-2.5-2.5); ABG OXYGEN SATURATION 94 % (94-100); ABG PCO2 38 MMHG (35-45); ABG PH 7.41 (7.37-7.43); ABG PO2 71 MMHG (79-93); ABG TCO2 24.7 MMOL/L (21.0-31.0)
[2019-09-30 09:48] LABS: ALLENS TEST POSITIVE; INSPIRED O2 2; PATIENT TEMP 36.6; VENTILATOR NO
[2019-09-30] MEDS ORDERED: HOLD METFORMIN - RECEIVED CONTRAST 20 ML VIAL IV SCH (10:30)
[2019-09-30] MEDS ORDERED: NS 100 ML (IVPB) BAG IV ONE (10:30)
[2019-09-30] MEDS ORDERED: IOHEXOL 350 MG/ML 100 ML (OMNIPAQUE 350) VIAL IV ONE (10:30)
--- NOTE | 2019-09-30 10:50 | Diagnostic Imaging Report ---
INDICATION: Hypoxia. Chest pain. COMPARISON: 06/01/2019 FINDINGS: Frontal and lateral radiograph views of the chest were obtained and show mild cardiomegaly with interval development of mild pulmonary vascular congestion. Small bibasilar effusions are also noted, right greater than left. No pneumothorax is seen on either side. Osseous structures show no gross acute abnormalities. IMPRESSION: 1. Mild cardiomegaly with interval development of mild pulmonary vascular congestion and small bibasilar effusions. Dictated by: Dictated on workstation # [id number]
--- NOTE | 2019-09-30 11:41 | Diagnostic Imaging Report ---
PROCEDURE: CT angiography of the chest with contrast. TECHNIQUE: Multiple contiguous axial images were obtained through the chest after uneventful bolus administration of intravenous contrast. 3D reconstructed CTA MIP acquisitions were also performed. Auto Exposure Controls were utilized during the CT exam to meet ALARA standards for radiation dose reduction. INDICATION: Hypoxia and elevated d-dimer. Correlation is made with prior CT from 07/09/2018. Evaluation of the pulmonary arterial system is without thromboembolism. No filling defects are seen within central, lobar or segmental branches. The thoracic aorta is normal in caliber. No dissection is seen. There are coronary arterial calcifications. No pericardial fluid is seen. Small bilateral pleural effusions are identified. A right upper lobe nodule previously described is stable approximately 8 mm compared with 7 mm on prior. There are areas of bibasilar consolidation or atelectasis. Upper abdomen is unremarkable. IMPRESSION: 1. No evidence of pulmonary embolism or thoracic aortic dissection. 2. Bilateral pleural effusions with bibasilar infiltrates or atelectasis. Dictated by: Dictated on workstation # [id number]
--- NOTE | 2019-09-30 12:18 | Consultation-Cardiology ---
HPI-Cardiology Cardiology Consultation: Date of Consultation 09/30/19 Time Seen by a Provider: 12:00 Date of Admission Attending Physician Marcie Darby MD Admitting Physician Mohamud Salas MD Consulting Physician GAYLE KNIGHT MD, MA, FACP, FACC, FSCAI, CCDS Primary Leather Goods Assembler: Dr Barajas HPI: Chief Complaint: CC: Chest discomfort, A-fib HPI Mr. Gray is a 73 year old male admitted to [facility] from the ED on 09-28-2019. He has a right foot wound for which he had previously been following with Dr. Gomez. He was seen by his PCP and found to have osteomyelitis. He has been evaluated by Dr. Mackey for partial amputation. He was scheduled for surgery this morning when he reported c/o increasing SOB and vague chest discomfort. Currently he does not describe any chest discomfort of shortness of breath. He is lethargic at the time of this interview. He awakens fairly easily, but has to continuously be awakened. He did receive IV Ativan recently which may be contributing to some of his lethargy. He has PAF and is currently in a-fib with a controlled rate. He had been on xarelto for stroke prophylaxis, but this is currently on hold d/t surgery. He is currently not reporting any CP. He does report lose cough. Review of Systems-Cardiology Review of Systems Constitutional: No chills Ears/Nose/Throat: No epistaxis Respiratory: As described under HPI Cardiovascular: As described under HPI Gastrointestinal: No diarrhea, No nausea Genitourinary: No hematuria Skin: other (wound to right foot) Psychiatric/Neurological: anxiety, depression Hematologic: No bleeding abnormalities DVG-Clsjyf-Zqeoua Hx Patient Social History Alcohol Use: Regular Use (4-5 glasses of wine per day) Recreational Drug Use: No Smoking Status: Current Everyday Smoker Type Used: Cigars 2nd Hand Smoke Exposure: Yes Recent Foreign Travel: No Recent Infectious Disease Expo: No Hospitalization with Isolation: Denies Immunizations Up To Date Tetanus Booster (TDap): Unknown Date of Pneumonia Vaccine: Aug 26, 2015 Date of Influenza Vaccine: May 26, 2019 Past Medical History PMH As described under Assessment. Family Medical History Family Medical History: Denies any family h/o CAD Family History: Diabetes mellitus G8 BROTHER FH: testicular cancer 19 FATHER Unknown cancer 19 MOTHER Allergies and Home Medications Allergies Coded Allergies: No Known Drug Allergies (Unverified , 10/25/17) Home Medications Digoxin 125 Mcg Tablet, 125 MCG PO DAILY, (Reported) Diltiazem HCl 240 Mg Cap.er.24h, 240 MG PO DAILY, (Reported) Doxycycline Hyclate 100 Mg Capsule, 100 MG PO BID, (Reported) 10 DAY SUPPLY FILLED 09-21-19 Furosemide 20 Mg Tablet, 20 MG PO DAILY, (Reported) Lisinopril 10 Mg Tablet, 10 MG PO DAILY, (Reported) Metformin HCl 500 Mg Tablet, 500 MG PO DAILY, (Reported) Pantoprazole Sodium 40 Mg Tablet.dr, 40 MG PO DAILY, (Reported) Potassium Chloride 20 Meq Tablet.er, 20 MEQ PO DAILY, (Reported) Pregabalin 50 Mg Capsule, 50 MG PO BID, (Reported) Rivaroxaban 20 Mg Tablet, 20 MG PO DAILY, (Reported) Patient Home Medication List Home Medication List Reviewed: Yes Physical Exam-Cardiology Physical Exam Vital Signs/I&O 09/30/19 09/30/19 09/30/19 09/30/19 01:00 02:16 04:00 07:00 Temp 36.2 Pulse 70 74 82 Resp 22 B/P (MAP) 145/77 (99) Pulse Ox 92 O2 Delivery Room Air Room Air 09/30/19 09/30/19 09/30/19 09/30/19 08:00 08:00 08:04 09:37 Temp 36.6 Pulse 56 Resp 22 B/P (MAP) 182/90 (120) Pulse Ox 96 91 O2 Delivery Room Air Room Air Room Air Nasal Cannula O2 Flow Rate 2.00 09/29/19 23:59 Intake Total 1115 ml Balance 1115 ml Capillary Refill : Less Than 3 Seconds Constitutional: well-developed, other (thin) HEENT: hearing is well preserved; No xanthelasmas are seen Neck: No carotid bruit; carotid pulses are 2 + bilaterally Respiratory: No accessory muscle use, No respiratory distress; chest expansion is symmetric, chest is bilaterally symmetric, other (coarse breath sounds with lose cough) Cardiovascular: regular rate-rhythm; No JVD; S1 and S2 Gastrointestinal: No tender; audible bowel sounds Extremities: no lower extremity edema bilateral Neurologic/Psychiatric: other (moves extremities) Skin: normal color, warm/dry, other (dressing to right foot in place, no drainage noted) Data Review Labs Laboratory Tests 09/29/19 16:24: Glucometer 151H 09/29/19 19:00: 09/29/19 20:25: Glucometer 190H 09/30/19 06:25: White Blood Count 7.5, Red Blood Count 3.64L, Hemoglobin 11.4L, Hematocrit 34L, Mean Corpuscular Volume 94, Mean Corpuscular Hemoglobin 31, Mean Corpuscular Hemoglobin Concent 33, Red Cell Distribution Width 14.4, Platelet Count 228, Mean Platelet Volume 9.2, D-Dimer 1.20H, Sodium Level 133L, Potassium Level 3.9, Chloride Level 104, Carbon Dioxide Level 23, Anion Gap 6, Blood Urea Nitrogen 5L , Creatinine 0.64, Estimat Glomerular Filtration Rate > 60, BUN/Creatinine Ratio 8, Glucose Level 93, Calcium Level 8.4L, Corrected Calcium 9.5, Total Bilirubin 0.7, Aspartate Amino Transf (AST/SGOT) 24, Alanine Aminotransferase (ALT/SGPT) 14, Alkaline Phosphatase 150H, Troponin I < 0.028, B-Type Natriuretic Peptide 636.9H, Total Protein 6.5, Albumin 2.6L, Vancomycin Level Trough 23.6H 09/30/19 09:37: Blood Gas Puncture Site RB, Blood Gas Patient Temperature 36.6, Arterial Blood pH 7.41, Arterial Blood Partial Pressure CO2 38, Arterial Blood Partial Pressure O2 71L, Arterial Blood HCO3 24, Arterial Blood Total CO2 24.7, Arterial Blood Oxygen Saturation 94, Arterial Blood Base Excess -0.5, Brian Test POSITIVE, Blood Gas Ventilator Setting NO, Blood Gas Inspired Oxygen 2 09/30/19 10:10: Troponin I < 0.028, Thyroid Stimulating Hormone (TSH) 3.14 09/30/19 11:12: Glucometer 106 Microbiology 09/28/19 Blood Culture - Preliminary, Resulted No growth 09/28/19 Gram Stain - Final, Resulted 09/28/19 Wound Culture - Preliminary, Resulted Gram Pos Mixed Bacterial Ariadna A/P-Cardiology Assessment/Admission Diagnosis Non-specific chest discomfort and vague symptoms of shortness of breath (none currently) without any evidence of ACS COPD H/o PAF - currently SR (maintained on Dig and Cardizem) Echocardiogram of Sep 30, 2019: LVEF 60-65%. Grade 2 diastolic dysfunction. Mild MR. AoV thickening consistent with sclerosis. RVSP 22mmHg Probably chronic, mild diastolic CHF Right foot wound with osteomyelitis - partial amputation of foot per Dr. Mackey - pending Xarelto for stroke prophylaxis - currently being held pending surgery COPD DM 2 H/o PAD for which he has seen Dr Barajas but has not been compliant with w/u or f/u Tobaccoism - cessation advised GERD Anxiety/depression ETOH abuse - reports 4-5 glassed of wine and whiskey daily Discussion and Recomendations * Cardiac risk for noncardiac surgery is estimated to be intermediate * I discussed his cardiac risk with him and answered questions. He seems to understand his risk * Diuretics as indicated * Continue Dig and Cardizem (which he has previously been maintained) * Previously on Xarelto for stroke prophylaxis - currently being held pending surgery - advise resumption as soon as possible, when deemed surgically safe * Monitor lab * I discussed his case with Dr Darby on the phone this am Clinical Quality Measures DVT/VTE Risk/Contraindication: Risk Factor Score Per Nursin RFS Level Per Nursing on Admit: 4+=Very High Other: PT POSSIBLY HAS SURGERY IN NEXT FEW DAYS. DR DARBY ORDERED TO HOLD UNTIL THEY KNOW WHEN SURGERY WILL BE SCHEDULED IN CASE SURGEON WANTS TO PERFORM SURGERY TODAY GAYLE KNIGHT MD FACP FAC CCDS Sep 30, 2019 12:18
[2019-09-30] MEDS ORDERED: LIDOCAINE PF 2% 5 ML (XYLOCAINE) VIAL ONE (13:19)
[2019-09-30] MEDS ORDERED: proPOfol 200 MG/20 ML (DIPRIVAN) VIAL IV ONE (13:19)
[2019-09-30] MEDS ORDERED: ONDANSETRON 4 MG/2 ML (SDV) Z0FRAN ONE (13:19)
[2019-09-30] MEDS ORDERED: SEVOFLURANE (ULTANE) 15 ML INHAL SOLN ONE ×5 (13:21→15:42)
[2019-09-30] MEDS ORDERED: fentaNYL INJECTION 100 MCG/2 ML AMP ONE (13:21)
--- NOTE | 2019-09-30 13:32 | NUR ---
CM/SS follow up with patient. CM/SS attempted to discuss discharge plans with the patient. He was able to communicate a little better than he was yesterday but appeared to be still slightly confused. CM/SS discussed a possible stay at a facility to help manage his wound care and other medical needs. The patient was undetermined at this time if he would be willing to go to a facility at discharge. The patient was appreciative of the visited and shook this SS hand. CM/SS called the patients DPCHRISTIANNE Licea who lives in [place] on her work phone ([phone]). She states she works till 5:30 but SS could leave a message for her if she is unavailable. Anuja verbalized that the patient has been to two different facilities for treatments of wounds in the past. This was verified through past medical [place] [facility] [place] [facility]. The DPOA stated that he liked [facility] for the facility set up. She reported that the patient is still allowed his wine at the facility but does really well there. CM/SS informed Anuja that patient is difficult to hold a conversation with at times and seems confused. She reports this is not his baseline, he is usually very talkative and articulate. She is concerned it could be from the Ativan. He does have a history of Alcohol use since he was around 12 per Anuja. CM/SS discussed different Home Health options with DPCHRISTIANNE due to them not being satisfied with [facility]. CM/SS called [facility] to find out if his Care Assessment is current or if a new one will be needed for facility placement. Still waiting for a call back. CM/SS also attempted to call [facility] to inform them that the patient is not home. The voicemail was not set up. Will continue to follow up for discharge planning.
--- NOTE | 2019-09-30 13:48 | Progress Note ---
ESTHER LEONARDO,MED STUDENT 09/30/19 1348: Subjective Subjective/Events-last exam Patient seen and examined this morning. The nurse reports agitation overnight, so he is getting Ativan. He complains of "feeling like something is jumping in his chest" throughout the night, shortness of breath and chest pain. Blood pressure this morning was elevated to 182/90. Review of Systems General: No Chills, No Night Sweats HEENT: No Head Aches Pulmonary: Dyspnea, Cough Cardiovascular: Chest Pain, Palpitations Gastrointestinal: No: Nausea, Vomiting, Abdominal Pain Focused Exam Lactate Level 09/28/19 16:30: Lactic Acid Level 0.95 Time of Focused Exam: 08:08 Respiratory: Chest Non Tender, No Accessory Muscle Use, No Respiratory Distress, Rhonci Cardiovascular: Systolic Murmur, Irregularly Irregular Peripheral Pulses: 2+ Radial Pulses (R), 2+ Radial Pulses (L) Skin: normal color, warm/dry Objective Exam Last Set of Vital Signs Vital Signs Date Time Temp Pulse Resp B/P (MAP) Pulse Ox O2 Delivery O2 Flow Rate FiO2 09/30/19 12:00 36.0 74 20 135/59 (84) 96 Room Air 09/30/19 09:37 2.00 09/29/19 01:32 21 Capillary Refill : Less Than 3 Seconds I&O Intake and Output 09/30/19 00:00 Intake Total 2285 ml Balance 2285 ml Intake Oral 650 ml IV Total 1635 ml # Voids 7 # Bowel Movements 2 HEENT: PERRLA, EOMI Psych/Mental Status: Other (lethargic) Results/Procedures Lab Laboratory Tests 09/29/19 16:24: Glucometer 151H 09/29/19 19:00: 09/29/19 20:25: Glucometer 190H 09/30/19 06:25: White Blood Count 7.5, Red Blood Count 3.64L, Hemoglobin 11.4L, Hematocrit 34L, Mean Corpuscular Volume 94, Mean Corpuscular Hemoglobin 31, Mean Corpuscular Hemoglobin Concent 33, Red Cell Distribution Width 14.4, Platelet Count 228, Mean Platelet Volume 9.2, D-Dimer 1.20H, Sodium Level 133L, Potassium Level 3.9, Chloride Level 104, Carbon Dioxide Level 23, Anion Gap 6, Blood Urea Nitrogen 5L , Creatinine 0.64, Estimat Glomerular Filtration Rate > 60, BUN/Creatinine Ratio 8, Glucose Level 93, Calcium Level 8.4L, Corrected Calcium 9.5, Total Bilirubin 0.7, Aspartate Amino Transf (AST/SGOT) 24, Alanine Aminotransferase (ALT/SGPT) 14, Alkaline Phosphatase 150H, Troponin I < 0.028, B-Type Natriuretic Peptide 636.9H, Total Protein 6.5, Albumin 2.6L, Vancomycin Level Trough 23.6H 09/30/19 09:37: Blood Gas Puncture Site RB, Blood Gas Patient Temperature 36.6, Arterial Blood pH 7.41, Arterial Blood Partial Pressure CO2 38, Arterial Blood Partial Pressure O2 71L, Arterial Blood HCO3 24, Arterial Blood Total CO2 24.7, Arterial Blood Oxygen Saturation 94, Arterial Blood Base Excess -0.5, Brian Test POSITIVE, Blood Gas Ventilator Setting NO, Blood Gas Inspired Oxygen 2 09/30/19 10:10: Troponin I < 0.028, Thyroid Stimulating Hormone (TSH) 3.14 09/30/19 11:12: Glucometer 106 Microbiology 09/28/19 Blood Culture - Preliminary, Resulted No growth 09/28/19 Gram Stain - Final, Resulted 09/28/19 Wound Culture - Preliminary, Resulted Gram Pos Mixed Bacterial Ariadna Staphylococcus aureus Assessment/Plan Assessment/Plan Assessment & Plan Assessment & Plan Osteomyelitis of right 5th metatarsal- IV vanc and zosyn, surgery consulted Diabetes Mellitus, non-insulin dependent- on sliding scale insulin Hyponatremia- continuing to improve, awaiting results of serum osmolality, urine sodium CHF- chest xray showed bilateral basilar effusions and pulmonary vascular congestion, will do IV lasix to help with fluid overload Paroxysmal Atrial Fibrillation- appreciate cardiology consult Clinical Quality Measures DVT/VTE Risk/Contraindication: Risk Factor Score Per Nursin RFS Level Per Nursing on Admit: 4+=Very High Other: PT POSSIBLY HAS SURGERY IN NEXT FEW DAYS. DR RESENDEZ ORDERED TO HOLD UNTIL THEY KNOW WHEN SURGERY WILL BE SCHEDULED IN CASE SURGEON WANTS TO PERFORM SURGERY TODAY AUSTEN RESENDEZ MD 09/30/19 3235: Assessment/Plan Assessment/Plan Assessment & Plan Pt with new complaint of chest pain/palpitations this am, troponin okay and EKG with a fib (chronic), also has hypoxia which was not present on admission, check BNP, echo already done and pending, consult Cardiology. Check D dimer and if elevated CTA chest given he is high risk for thrombosis and not on anticoagulation due to planned surgery. Supervisory-Addendum Brief Verification & Attestation Participated in pt care: history, MDM, physical Personally performed: exam, history, MDM Care discussed with: Medical Student Procedures: n/a Verification and Attestation of Medical Student E/M Service A medical student performed this service in my presence. I reviewed and verified all information documented by the medical student and made modifications to such information, when appropriate. I personally performed the physical exam (I did not check peripheral pulses, remainder of physical exam documentation reflects my exam) and medical decision making. Austen Resendez, Sep 30, 2019,14:41 ESTHER LEONARDO,MED STUDENT Sep 30, 2019 13:48 AUSTEN RESENDEZ MD Sep 30, 2019 14:42
--- NOTE | 2019-09-30 14:20 | NUR ---
patient to surgery at this time
[2019-09-30] MEDS ORDERED: PROMETHAZINE INJ 25 MG/ML (PHENERGAN) AMP ONE (14:42)
[2019-09-30] MEDS ORDERED: HYDROmorphone 2 MG/ML VIAL (DILAUDID) ONE (14:42)
[2019-09-30] MEDS ORDERED: morphine INJ 10 MG/ML 1ML (SYR OR VIAL) ONE (14:42)
[2019-09-30] MEDS ORDERED: LIDOCAINE/EPI 1%-1:100,000 (XYLOCAINE) 20ML ONE (14:44)
[2019-09-30] MEDS ORDERED: PHENYLEPHRINE 100 MCG/ML 10 ML (ANESTHESIA) SYR ONE (14:55)
--- NOTE | 2019-09-30 15:42 | Progress Note-Post Operative ---
Post-Operative Progess Note Surgeon (s)/Head Packager (s) Surgeon KRISTINA CONTRERAS MD Head Packager: none Pre-Operative Diagnosis 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 Post-Operative Diagnosis same Procedure & Operative Findings Date of Procedure 09/30/19 Procedure Performed/Findings excision right 5th metatarsal and phalanx. Anesthesia Type general LMA Estimated Blood Loss Estimated blood loss (mL): minimal Specimens/Packing Specimens Removed right 5th metatarsal and phalanx KRISTINA CONTRERAS MD Sep 30, 2019 15:42
[2019-09-30] MEDS ORDERED: HYDROmorphone 2 MG/ML VIAL (DILAUDID) IV ONE (16:00)
[2019-09-30] MEDS ORDERED: ONDANSETRON 4 MG/2 ML (SDV) Z0FRAN IVP PRN (16:00)
--- NOTE | 2019-09-30 16:00 | NUR ---
REPORT RECEIVED FROM AUGUSTUS Olivera RN. PT IN RECOVERY. WILL ASSUME CARE OF PT WHEN HE ARRIVES TO THE FLOOR
--- NOTE | 2019-09-30 16:04 | Anesthesia-General Post-Op ---
General Patient Condition Mental Status/LOC: Same as Preop Cardiovascular: Satisfactory Nausea/Vomiting: Absent Respiratory: Satisfactory Pain: Controlled Complications: Absent Post Op Complications Complications None Follow Up Care/Instructions Patient Instructions None needed. Anesthesia/Patient Condition Patient Condition Patient is doing well, no complaints, stable vital signs, no apparent adverse anesthesia problems. No complications reported per nursing. TONEY QUILES CRNA Sep 30, 2019 16:04
[2019-09-30] MEDS ORDERED: PROMETHAZINE INJ 25 MG/ML (PHENERGAN) AMP IVP NR (16:14)
[2019-09-30] MEDS ORDERED: morphine INJ 10 MG/ML 1ML (SYR OR VIAL) IVP NR (16:18)
--- NOTE | 2019-09-30 17:00 | NUR ---
PT BACK TO ROOM FROM RECOVERY. REPORT RECEIVED FROM ANTON MAURICE. PT DROWSY. DENIES ANY PAIN. BILATERAL UPPER LOBES CTA. HRR. BS ACTIVE. RIGHT FOOT RED/WARM WITH EDEMA NOTED. PEDAL PULSE PRESENT. WOUND VAC IN PLACE. RIGHT FOOT ELEVATED ON PILLOW. PT DENIES ANY NEEDS AT THIS TIME, RESTING COMFORTABLY WITH EYES CLOSED.
--- NOTE | 2019-09-30 17:15 | NUR ---
NS INFUSING AT 125ML/HR TO RIGHT WRIST.
--- NOTE | 2019-09-30 18:50 | NUR ---
DR DARBY NOTIFIED OF FLUIDS RUNNING AT 125ML/HR AND NO PAIN MEDICATION ORDERED. ORDER RECEIVED TO D/C IV FLUIDS AND HYDROCODONE 5-325 Q4HR PRN.
[2019-09-30] MEDS: VANCOMYCIN INJECTION 1,250 MG in NS (IVPB) 250 ML IV SCH (20:12)
[2019-10-01] VITALS (7 sets, daily range): BP systolic 114–151; BP diastolic 56–80
--- NOTE | 2019-10-01 01:35 | OPERATIVE REPORT ---
DATE OF SERVICE: 09/30/2019 ATTENDING PRIMARY CARE PHYSICIAN: DR. Salas. ADMITTING PHYSICIAN: Dr. Landeros. PREOPERATIVE DIAGNOSES: Osteomyelitis, right fifth metatarsal and phalanx. POSTOPERATIVE DIAGNOSES: Osteomyelitis, right fifth metatarsal and phalanx. PROCEDURE: Resection, right fifth metatarsal and phalanx and wound VAC placement. SURGEON: Kristina Mackey MD. ANESTHESIA: General laryngeal mask airway. ESTIMATED BLOOD LOSS: 150 mL. FINDINGS: Significant bone degeneration of the metatarsal and phalanx. DISPOSITION: The patient tolerated the procedure well. INDICATIONS: The patient is a 73-year-old male, who presented to the Emergency Department with right foot infection. He has a longstanding history of diabetes and diabetic foot issues for years. He has had an issue with the right foot diabetic open wound for several months and has undergone several months of antibiotics. He was seen by wound care and subsequently released. He was seen by his primary care physician where the open wound was identified and cultures were positive. Upon examination, there is redness, erythema and open wound along the plantar aspect of the right fifth metacarpophalangeal joint with surrounding redness and erythema. X-ray was consistent with osteomyelitis and significant bone degeneration of the fifth metatarsal and digit. DESCRIPTION OF PROCEDURE: The patient was brought to the operating room, laid supine on the table. After adequate IV pain and stated medications and general laryngeal mask airway intubation, the foot was prepped and draped in standard surgical fashion. A 1% lidocaine with epinephrine was used to anesthetize the skin surrounding the left digit and metatarsal and the skin was opened using a 15 blade. We then proceeded to score the skin around the base of the fifth digit and the fifth digit and metatarsal were then fully excised en bloc to the tarsal bone using electrocautery as well as blunt dissection. Good hemostasis was observed. The open wounds of the plantar aspect of the foot were also resected as well. Once good hemostasis was observed, a wound VAC was then applied and placed on 125 mmHg suction. The patient tolerated the procedure well. We will admit him back to the floor and continue with IV antibiotics as well as medical management with tight glycemic control. We will also consult socially responsible investment adviser for home needs and long-term placement. Job ID: [id number] DocumentID: [id number] Dictated Date: 09/30/2019 15:48:35 Supervisor Weaving Date: 10/01/2019 01:34:19 Dictated By: KRISTINA MACKEY MD MTDD
[2019-10-01] MEDS: PIPERACILLIN/TAZO 4.5 GM/NS 100 ML IV SCH ×6 (02:40→17:24)
[2019-10-01] MEDS: inSUlin ASPART (NovoLOG) 1 UNIT/0.01 ML (CHARGE PER UNIT) SC SCH ×4 (05:44→21:06)
[2019-10-01] MEDS: THIAMINE 100 MG (VITAMIN B-1) TAB PO SCH (06:03)
[2019-10-01] MEDS: KCL 20 MEQ TAB (K-DUR) PO SCH (06:03)
[2019-10-01] MEDS: MULTIVIT W/MINERALS TAB (THERAGRAN M) PO SCH (06:03)
[2019-10-01] MEDS: HYDROcodone/APAP 5 MG/325 MG (LORTAB) TAB PO PRN (06:06)
[2019-10-01 06:41] LABS: HEMOGLOBIN 15.9 G/DL (13.3-17.7); RED CELL DISTRIBUTION WIDTH 12.8 % (10.0-14.5)
[2019-10-01 07:06] LABS: BUN/CREATININE RATIO 21; CARBON DIOXIDE 26 MMOL/L (21-32); CHLORIDE 108 MMOL/L (98-107); CREATININE SERUM 0.89 MG/DL (0.60-1.30); GFR ESTIMATED > 60; SODIUM 140 MMOL/L (135-145)
[2019-10-01 07:07] LABS: CALCIUM 9.8 MG/DL (8.5-10.1); GLUCOSE 89 MG/DL (70-105)
[2019-10-01] MEDS: PANTOPRAZOLE 40 MG (PROTONIX) TAB PO SCH (08:52)
[2019-10-01] MEDS: DIGOXIN 0.125 MG (LANOXIN) TAB PO SCH (08:52)
[2019-10-01] MEDS: lisINopril 10 MG (PRINIVIL) TABLET PO SCH (08:53)
[2019-10-01] MEDS: PREGABALIN 50 MG (LYRICA) CAP PO SCH ×2 (08:53→21:06)
[2019-10-01] MEDS: FUROSEMIDE 20 MG (LASIX) TAB PO SCH (08:53)
[2019-10-01] MEDS: MAGNESIUM OXIDE (MAG-OX)400 MG TAB PO SCH (08:53)
[2019-10-01] MEDS: FOLIC ACID 1 MG TAB PO SCH (09:55)
--- NOTE | 2019-10-01 10:00 | Progress Note - Cardiology ---
Cardiology SOAP Progress Note Subjective: Sitting up in bed. Much more alert today. No c/o CP, dyspnea, palpitations. Objective: I&O/Vital Signs 10/01/19 10/02/19 10/02/19 10/02/19 23:25 01:00 03:26 07:24 Temp 36.4 36.7 Pulse 78 80 73 Resp 22 20 B/P (MAP) 114/56 (75) 116/61 (79) Pulse Ox 94 96 O2 Delivery Nasal Cannula Nasal Cannula Nasal Cannula O2 Flow Rate 2.00 2.00 2.00 10/02/19 00:00 Intake Total 1986.5 ml Balance 1986.5 ml Weight (Pounds): 179 Weight (Ounces): 9.0 Weight (Calculated Kilograms): 81.006757 Constitutional: well-developed, other (thin) Respiratory: No accessory muscle use, No respiratory distress; chest expansion is symmetric, chest is bilaterally symmetric, other (coarse breath sounds with lose cough) Cardiovascular: regular rate-rhythm; No JVD; S1 and S2 Gastrointestional: No tender; audible bowel sounds Extremities: no lower extremity edema bilateral Neurologic/Psychiatric: other (moves extremities) Skin: normal color, warm/dry, other (S/P partial amputation of right foot; dressing and wound vac in place) Results/Procedures: Labs Laboratory Tests 10/01/19 11:04: Glucometer 165H 10/01/19 17:13: Glucometer 180H 10/01/19 20:49: Glucometer 266H 10/02/19 05:11: Glucometer 104 10/02/19 05:20: White Blood Count 8.4, Red Blood Count 2.98L, Hemoglobin 9.5#L, Hematocrit 29L, Mean Corpuscular Volume 96, Mean Corpuscular Hemoglobin 32, Mean Corpuscular Hemoglobin Concent 33, Red Cell Distribution Width 14.4, Platelet Count 198, Mean Platelet Volume 9.6, Sodium Level 131L, Potassium Level 3.9, Chloride Level 102, Carbon Dioxide Level 22, Anion Gap 7, Blood Urea Nitrogen 9, Creatinine 0.70, Estimat Glomerular Filtration Rate > 60, BUN/Creatinine Ratio 13, Glucose Level 93, Calcium Level 8.0L, Corrected Calcium 9.4, Total Bilirubin 0.8, Aspartate Amino Transf (AST/SGOT) 19, Alanine Aminotransferase (ALT/SGPT) 14, Alkaline Phosphatase 120, Total Protein 5.9L, Albumin 2.3L Microbiology 09/28/19 Blood Culture - Preliminary, Resulted No growth 09/28/19 Gram Stain - Final, Complete 09/28/19 Wound Culture - Final, Complete Gram Pos Mixed Bacterial Ariadna Staphylococcus aureus Procedures NAME: [facility]O [facility] REC#: [id number] PT STATUS: ADM IN : 1945 PHYSICIAN: AUSTEN DARBY MD ADMIT DATE: 09/28/19 Signed Date of Exam:09/30/19 CT ANGIO CHEST W PROCEDURE: CT angiography of the chest with contrast. TECHNIQUE: Multiple contiguous axial images were obtained through the chest after uneventful bolus administration of intravenous contrast. 3D reconstructed CTA MIP acquisitions were also performed. Auto Exposure Controls were utilized during the CT exam to meet ALARA standards for radiation dose reduction. INDICATION: Hypoxia and elevated d-dimer. Correlation is made with prior CT from 07/09/2018. Evaluation of the pulmonary arterial system is without thromboembolism. No filling defects are seen within central, lobar or segmental branches. The thoracic aorta is normal in caliber. No dissection is seen. There are coronary arterial calcifications. No pericardial fluid is seen. Small bilateral pleural effusions are identified. A right upper lobe nodule previously described is stable approximately 8 mm compared with 7 mm on prior. There are areas of bibasilar consolidation or atelectasis. Upper abdomen is unremarkable. IMPRESSION: 1. No evidence of pulmonary embolism or thoracic aortic dissection. 2. Bilateral pleural effusions with bibasilar infiltrates or atelectasis. Dictated by: Dictated on workstation # [id number] Dict: 09/30/19 1132 Trans: 09/30/19 155 [facility] [id number] Interpreted by: GINA HAYDEN MD Electronically signed by: GINA HAYDEN MD 09/30/19 5788 A/P: Assessment: Non-specific chest discomfort and vague symptoms of shortness of breath (none currently) without any evidence of ACS - no further c/o COPD H/o PAF - currently SR (maintained on Dig and Cardizem) Echocardiogram of Sep 30, 2019: LVEF 60-65%. Grade 2 diastolic dysfunction. Mild MR. AoV thickening consistent with sclerosis. RVSP 22mmHg Probably chronic, mild diastolic CHF Right foot wound with osteomyelitis - s/p partial right foot amputation per Dr. Mackey on 09-30-2019 Xarelto for stroke prophylaxis - currently being held pending surgery COPD DM 2 H/o PAD for which he has seen Dr Barajas but has not been compliant with w/u or f/u Tobaccoism - cessation advised GERD Anxiety/depression ETOH abuse - reports 4-5 glassed of wine and whiskey daily Plan: * Continue current medication regimen * Previously on Xarelto for stroke prophylaxis - held d/t surgery - advise resumption as soon as possible, when deemed surgically safe * Monitor lab ESTHER MACKEY Oct 01, 2019 10:00
--- NOTE | 2019-10-01 11:15 | Progress Note ---
ESTHER LEONARDO,MED STUDENT 10/01/19 1115: Subjective Subjective/Events-last exam Patient seen and examined this morning. He denies any pain in his foot or chest pain this morning. Nursing says he slept well throughout the night, and that family was concerned about him receiving ativan, because it has made him agitated in the past. Review of Systems General: No Chills, No Fatigue Pulmonary: No Dyspnea; Cough Cardiovascular: No: Chest Pain, Palpitations Gastrointestinal: No: Nausea, Vomiting, Abdominal Pain Musculoskeletal: No: leg pain Focused Exam Lactate Level 09/28/19 16:30: Lactic Acid Level 0.95 Objective Exam Last Set of Vital Signs Vital Signs Date Time Temp Pulse Resp B/P (MAP) Pulse Ox O2 Delivery O2 Flow Rate FiO2 10/01/19 08:12 Nasal Cannula 3.00 10/01/19 08:00 37.2 95 18 122/58 (79) 95 09/29/19 01:32 21 Capillary Refill : Greater Than 3 SecondsLess Than 3 Seconds I&O Intake and Output 10/01/19 00:00 Intake Total 922.5 ml Balance 922.5 ml Intake Oral 300 ml IV Total 622.5 ml # Voids 5 General: Alert, Oriented X3, No Acute Distress HEENT: EOMI Lungs: Clear to Auscultation, Normal Air Movement Heart: Other (systolic murmur) Abdomen: Normal Bowel Sounds, Soft, No Tenderness Extremities: Normal Pulses, No Tenderness/Swelling, Other (right 5th metatarsal amputated, no surrounding erythema or drainage noted) Results/Procedures Lab Laboratory Tests 09/30/19 11:12: Glucometer 106 09/30/19 14:03: Vancomycin Level Trough 19.0 09/30/19 16:03: Glucometer 103 09/30/19 17:15: Glucometer 109 09/30/19 21:02: Glucometer 188H 10/01/19 05:42: Glucometer 99 10/01/19 05:52: White Blood Count 6.0, Red Blood Count 5.17, Hemoglobin 15.9#, Hematocrit 45, Mean Corpuscular Volume 88, Mean Corpuscular Hemoglobin 31, Mean Corpuscular Hemoglobin Concent 35, Red Cell Distribution Width 12.8, Platelet Count 338, Mean Platelet Volume 10.0, Sodium Level 140, Potassium Level 5.0, Chloride Level 108H, Carbon Dioxide Level 26, Anion Gap 6, Blood Urea Nitrogen 19H, Creatinine 0.89, Estimat Glomerular Filtration Rate > 60, BUN/Creatinine Ratio 21, Glucose Level 89, Calcium Level 9.8 Microbiology 09/28/19 Blood Culture - Preliminary, Resulted No growth 09/28/19 Gram Stain - Final, Resulted 09/28/19 Wound Culture - Preliminary, Resulted Gram Pos Mixed Bacterial Ariadna Staphylococcus aureus Assessment/Plan Assessment/Plan Assessment & Plan s/p right 5th metatarsal amputation- on IV vanc and zosyn, surgery managing Diabetes Mellitus, non-insulin dependent- on sliding scale insulin Hyponatremia- improved this morning CHF- chest xray showed bilateral basilar effusions and pulmonary vascular congestion, on oral lasix Paroxysmal Atrial Fibrillation- appreciate cardiology consult, will wait to star t patients rivaroxaban when surgery clears it Clinical Quality Measures DVT/VTE Risk/Contraindication: Risk Factor Score Per Nursin RFS Level Per Nursing on Admit: 4+=Very High Other: PT POSSIBLY HAS SURGERY IN NEXT FEW DAYS. DR DARBY ORDERED TO HOLD UNTIL THEY KNOW WHEN SURGERY WILL BE SCHEDULED IN CASE SURGEON WANTS TO PERFORM SURGERY TODAY AUSTEN DARBY MD 10/01/19 1256: Assessment/Plan Assessment/Plan Assessment & Plan Discharge planning- will likely need alf stay, has required with previous admissions, discussed with social work and will send referrals. Supervisory-Addendum Brief Verification & Attestation Participated in pt care: history, MDM, physical Personally performed: exam, history, MDM Care discussed with: Medical Student Procedures: n/a I personally have seen and evaluated the patient and repeated the history and physical exam. I agree with the documentation by the medical student except I did not check peripheral pulses. ESTHER LEONARDO,MED STUDENT Oct 01, 2019 11:15 AUSTEN DARBY MD Oct 01, 2019 12:56
--- NOTE | 2019-10-01 13:03 | Progress Note ---
Subjective Date Seen by a Provider: Oct 01, 2019 Time Seen by a Provider: 12:50 Subjective/Events-last exam Patient reports doing well. Does report pain of the right foot. No F ever/chills. Tolerating diet. Working with PT. Focused Exam Lactate Level 09/28/19 16:30: Lactic Acid Level 0.95 Objective Exam Vital Signs Date Time Temp Pulse Resp B/P (MAP) Pulse Ox O2 Delivery O2 Flow Rate FiO2 10/01/19 12:43 87 10/01/19 12:00 36.3 86 20 128/70 (89) 97 Nasal Cannula 3.00 10/01/19 11:14 97 Nasal Cannula 3.00 10/01/19 08:12 Nasal Cannula 3.00 10/01/19 08:00 Nasal Cannula 3.00 10/01/19 08:00 37.2 95 18 122/58 (79) 95 Nasal Cannula 3.00 10/01/19 07:00 95 10/01/19 04:29 37.5 97 18 151/79 (103) 95 Nasal Cannula 3.00 10/01/19 01:00 95 10/01/19 00:00 37.6 93 18 141/80 (100) 95 Nasal Cannula 3.00 09/30/19 22:56 92 Nasal Cannula 3.00 09/30/19 20:15 Nasal Cannula 3.00 09/30/19 19:32 36.6 86 20 144/78 (100) 98 Nasal Cannula 3.00 09/30/19 19:30 93 Nasal Cannula 3.00 09/30/19 19:00 83 09/30/19 18:46 97 Nasal Cannula 3.00 09/30/19 17:02 36.3 73 18 146/74 (98) 93 Simple Mask 3.00 09/30/19 17:00 OxyMask 3 09/30/19 17:00 36.1 20 135/75 (95) 96 OxyMask 3 09/30/19 16:50 20 96/135 (122) 72 OxyMask 3 09/30/19 16:45 OxyMask 3 09/30/19 16:40 20 139/75 (96) 96 OxyMask 3 09/30/19 16:30 20 136/75 (95) 97 OxyMask 4 09/30/19 16:30 OxyMask 3 09/30/19 16:20 20 135/72 (93) 95 OxyMask 4 09/30/19 16:15 OxyMask 5 09/30/19 16:10 20 130/80 (97) 95 OxyMask 4 09/30/19 16:00 20 135/82 (99) 98 OxyMask 5 09/30/19 16:00 OxyMask 5 09/30/19 15:57 36.3 26 123/68 (86) 98 OxyMask 5 09/30/19 15:57 OxyMask 5 09/30/19 13:00 72 I & O 10/01/19 07:00 Intake Total 1322.5 ml Balance 1322.5 ml Capillary Refill : Less Than 3 SecondsLess Than 3 Seconds General Appearance: No Apparent Distress, WD/WN Neck: Full Range of Motion, Normal Inspection, Supple Respiratory: Normal Breath Sounds, No Accessory Muscle Use, No Respiratory Distress Cardiovascular: Regular Rate, Rhythm, No Murmur Gastrointestinal: normal bowel sounds, non tender, soft Extremity: Normal Capillary Refill, Normal Range of Motion, Swelling (Right foot), Other (Wound vac applied to lateral 5th toe amp site. C/D/I.) Neurologic/Psychiatric: Alert, Oriented x3 Results Lab Laboratory Tests 09/30/19 14:03: Vancomycin Level Trough 19.0 09/30/19 16:03: Glucometer 103 09/30/19 17:15: Glucometer 109 09/30/19 21:02: Glucometer 188H 10/01/19 05:42: Glucometer 99 10/01/19 05:52: White Blood Count 6.0, Red Blood Count 5.17, Hemoglobin 15.9#, Hematocrit 45, Mean Corpuscular Volume 88, Mean Corpuscular Hemoglobin 31, Mean Corpuscular Hemoglobin Concent 35, Red Cell Distribution Width 12.8, Platelet Count 338, Mean Platelet Volume 10.0, Sodium Level 140, Potassium Level 5.0, Chloride Level 108H, Carbon Dioxide Level 26, Anion Gap 6, Blood Urea Nitrogen 19H, Creatinine 0.89, Estimat Glomerular Filtration Rate > 60, BUN/Creatinine Ratio 21, Glucose Level 89, Calcium Level 9.8 10/01/19 11:04: Glucometer 165H Microbiology 09/28/19 Blood Culture - Preliminary, Resulted No growth 09/28/19 Gram Stain - Final, Complete 09/28/19 Wound Culture - Final, Complete Gram Pos Mixed Bacterial Ariadna Staphylococcus aureus Assessment/Plan Assessment/Plan Assess & Plan/Chief Complaint A 73 year old male with 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 S/P Resection, right fifth metatarsal and phalanx and wound VAC placement. VSS Continue with wound vac. IV abx. Pain and Nausea meds prn. PT Tight Glycemic control. Clinical Quality Measures DVT/VTE Risk/Contraindication: Risk Factor Score Per Nursin RFS Level Per Nursing on Admit: 4+=Very High Other: PT POSSIBLY HAS SURGERY IN NEXT FEW DAYS. DR DARBY ORDERED TO HOLD UNTIL THEY KNOW WHEN SURGERY WILL BE SCHEDULED IN CASE SURGEON WANTS TO PERFORM SURGERY TODAY АНДРЕЙ MARINELLI APRN Oct 01, 2019 13:03
--- NOTE | 2019-10-01 13:23 | Physical Therapy Evaluation ---
PT Evaluation-General Medical Diagnosis Admission Date Sep 28, 2019 at 17:36 Medical Diagnosis: osteomyelitis right foot Onset Date: Sep 27, 2019 Therapy Diagnosis Therapy Diagnosis: generalized weakness/debility Height/Weight Height (Feet): 5 Height (Inches): 11.00 Weight (Pounds): 179 Weight (Ounces): 9.0 Precautions Precautions/Isolations: Contact Isolation, Fall Prevention Weight Bear Status Right Lower Extremity: Right Non Weight Bearing Left Lower Extremity: Left Weight Bearing/Tolerated Check with Surgery for right foot weight bearing due to right 5th metatarsal and phalange amputation with wound vac placement Referral Physician: Mal Reason for Referral: Evaluation/Treatment Medical History Pertinent Medical History: Atrial Fib, Alcoholism, DM, GERD, HTN, Smoking Additional Medical History liver disease/depression Current History ER with right foot infection x several months surgery 09/30/19 right foot 5th metatarsal and phalanx resection with wound vac placement Reviewed History: Yes Social History Home: Single Level Current Living Status: Alone Prior Prior Level of Function SCALE: Activities may be completed with or without assistive devices. 0-Jjneamdwsj-latotkl completes the activity by him/herself with no assistance from a helper. 5-Set-up or Clean-up Assistance-helper sets up or cleans up; patient completes activity. [place] assists only prior to or following the activity. 4-Supervision or Touching Assistance-helper provides verbal cues and/or touching/steadying and/or contact guard assistance as patient completes activity. Assistance may be provided throughout the activity or intermittently. 3-Partial/Moderate Assistance-helper does LESS THAN HALF the effort. [place] lifts, holds or supports trunk or limbs, but provides less than half the effort. 2-Substantial/Maximal Assistance-helper does MORE THAN HALF the effort. [place] lifts or holds trunk or limbs and provides more than half the effort. 1-Wnpsxkjbw-rhuhse does ALL the effort. Patient does none of the effort to complete the activity. Or, the assistance of 2 or more helpers is required for the patient to complete the activity. If activity was not attempted, code reason: 7-Patient Refused. 9-Not Applicable-not attempted and the patient did not perform the activity before the current illness, exacerbation or injury. 10-Not Attempted due to Environmental Limitations-(lack of equipment, weather restraints, etc.). 88-Not Attempted due to Medical Conditions or Safety Concerns. Bed Mobility: 6 Transfers (B,C,W/C): 6 Gait: 6 Indoor Mobility (Ambulation): Independent Stairs: Independent Prior Devices Use: Walker PT Evaluation-Current Subjective Patient agrees to PT. Pain Numeric Pain Scale: 0-No Pain Location: No Pain Reported Objective Patient Orientation: Normal For Age Attachments: IV wound vac right foot ROM/Strength ROM Lower Extremities bilateral LE WFL Strength Lower Extremities right LE 3-/5 grossly/left LE 3/5 grossly Integumentary/Posture Integumentary refer to nursing notes Bowel Incontinence: No Bladder Incontinence: Yes Posture WFL Neuromuscular (Tone, Coordination, Reflexes) grossly intact Sensory Vision: Functional Hearing: Functional Sensation Right Lower Extremit: Impaired Sensation Left Lower Extremity: Impaired Transfers Roll Left to Right (QC): 6 Sit to Lying (QC): 6 Sit to Stand (QC): 2 Chair/Lhq-io-Mfkuy Xfer(QC): 2 patient unable to comply with NWB right LE with skilled verbal instruction and patient becoming highly agitated Gait Does the Patient Walk?: No and Walking Goal NOT indicated Anticipated Mode of Locomotion: Wheelchair (until right foot is healed and advancement of weight bearing status improves) Balance Sitting Static: Normal Sitting Dynamic: Normal Standing Static: Fair Standing Dynamic: Fair Assessment/Needs 73 y.o. male, will benefit from skilled PT to address functional strength and mobility to improve current LOF. Patient is currently NWB right LE and unable to comply with this. Education initiated with patient becoming highly agitated. PT will continue to address needs. Rehab Potential: Guarded Post Rehab Potential-Barriers: compliance PT Shelter Goals Field Administrative Assistant Goals PT Shelter Goals Time Frame: Oct 17, 2019 Roll Left & Right (QC): 6 Sit to Lying (QC): 6 Lying-Sitting on Side/Bed(QC): 6 Sit to Stand (QC): 4 Chair/Yvl-pc-Mdhww Xfer(QC): 4 Toilet Transfer (QC): 4 Does the Patient Walk: No and Walking Goal NOT indicated PT Plan Problem List Problem List: Activity Tolerance, Functional Strength, Safety, Balance, Gait, Transfer, Other (NWB right LE) Treatment/Plan Treatment Plan: Continue Plan of Care Treatment Plan: Education, Functional Activity Mushtaq, Functional Strength, Safety, Therapeutic Exercise, Transfers Treatment Duration: Oct 17, 2019 Frequency: 6 times per week Estimated Hrs Per Day: .25 hour per day Patient and/or Family Agrees t: Yes Discharge Recommendations Therapy Discharge Recommendati: Other, See Comments (penitentiary facility) Time/GCodes Time In: 1258 Time Out: 1310 Total Billed Treatment Time: 12 Total Billed Treatment 1 visit EVModC 12 min FIORELLA CHAVEZ PT Oct 01, 2019 13:23
--- NOTE | 2019-10-01 13:53 | Progress Note - Cardiology ---
Cardiology SOAP Progress Note Subjective: Some pain at surgical site on R foot No cp or palp or syncope No shortness of breath at rest Chronic gen malaise No N/V Objective: I&O/Vital Signs 10/01/19 10/01/19 10/01/19 10/01/19 04:29 07:00 08:00 08:00 Temp 37.5 37.2 Pulse 97 95 95 Resp 18 18 B/P (MAP) 151/79 (103) 122/58 (79) Pulse Ox 95 95 O2 Delivery Nasal Cannula Nasal Cannula Nasal Cannula O2 Flow Rate 3.00 3.00 3.00 10/01/19 10/01/19 10/01/19 10/01/19 08:12 11:14 12:00 12:43 Temp 36.3 Pulse 86 87 Resp 20 B/P (MAP) 128/70 (89) Pulse Ox 97 97 O2 Delivery Nasal Cannula Nasal Cannula Nasal Cannula O2 Flow Rate 3.00 3.00 3.00 10/01/19 00:00 Intake Total 682.5 ml Balance 682.5 ml Weight (Pounds): 179 Weight (Ounces): 9.0 Weight (Calculated Kilograms): 81.762488 Constitutional: well-developed, other (thin) Respiratory: No accessory muscle use, No respiratory distress; chest expansion is symmetric, chest is bilaterally symmetric, other (coarse breath sounds with lose cough) Cardiovascular: regular rate-rhythm; No JVD; S1 and S2 Gastrointestional: No tender; audible bowel sounds Extremities: no lower extremity edema bilateral Neurologic/Psychiatric: other (moves extremities) Skin: normal color, warm/dry, other (S/P partial amputation of right foot; dressing and wound vac in place) Results/Procedures: Labs Laboratory Tests 09/30/19 14:03: Vancomycin Level Trough 19.0 09/30/19 16:03: Glucometer 103 09/30/19 17:15: Glucometer 109 09/30/19 21:02: Glucometer 188H 10/01/19 05:42: Glucometer 99 10/01/19 05:52: White Blood Count 6.0, Red Blood Count 5.17, Hemoglobin 15.9#, Hematocrit 45, Mean Corpuscular Volume 88, Mean Corpuscular Hemoglobin 31, Mean Corpuscular Hemoglobin Concent 35, Red Cell Distribution Width 12.8, Platelet Count 338, Mean Platelet Volume 10.0, Sodium Level 140, Potassium Level 5.0, Chloride Level 108H, Carbon Dioxide Level 26, Anion Gap 6, Blood Urea Nitrogen 19H, Creatinine 0.89, Estimat Glomerular Filtration Rate > 60, BUN/Creatinine Ratio 21, Glucose Level 89, Calcium Level 9.8 10/01/19 11:04: Glucometer 165H Microbiology 09/28/19 Blood Culture - Preliminary, Resulted No growth 09/28/19 Gram Stain - Final, Complete 09/28/19 Wound Culture - Final, Complete Gram Pos Mixed Bacterial Ariadna Staphylococcus aureus A/P: Assessment: Non-specific chest discomfort and vague symptoms of shortness of breath (none currently) without any evidence of ACS - no further c/o COPD H/o PAF - currently SR (maintained on Dig and Cardizem) Echocardiogram of Sep 30, 2019: LVEF 60-65%. Grade 2 diastolic dysfunction. Mild MR. AoV thickening consistent with sclerosis. RVSP 22mmHg Probably chronic, mild diastolic CHF Right foot wound with osteomyelitis - s/p partial right foot amputation per Dr. Mackey on 09-30-2019 Xarelto for stroke prophylaxis - currently being held pending surgery COPD DM 2 H/o PAD for which he has seen Dr Barajas but has not been compliant with w/u or f/u Tobaccoism - cessation advised GERD Anxiety/depression ETOH abuse - reports 4-5 glassed of wine and whiskey daily Plan: * Continue current medication regimen * Previously on Xarelto for stroke prophylaxis - held d/t surgery - advise resumption as soon as possible, when deemed surgically safe * Monitor lab * I spoke with him in detail and answered CV-related questions GAYLE KNIGHT MD FACP FACC CCDS Oct 01, 2019 13:53
--- NOTE | 2019-10-01 16:26 | NUR ---
CM/SS visit with patient to continue discharge planning. Referral sent to [facility] and [facility]. The patient was sitting up in his chair and seemed more alert than when SS talked to him this morning. CM/SS visited with the patient this morning and told him we would revisit conversation later. CM/SS informed the patient of conversation with [facility]. CM/SS contacted [facility] to give an update. Anuja stated that the patients worker would be stopping by the hospital today to visit the patient.The patient stated that he is willing to go to a facility for a short period of time to heal. The patient weighed the pros and cons of his stay at both [facility] and [facility] and [facility]. the patient states he liked them both but really prefers [facility] and [facility]. A referral was sent to [facility] who stated they would be able to look it over tonight and let us know. There were no other needs at this time, will contact both [facility] to let them know of plans.
[2019-10-01] MEDS: VANCOMYCIN INJECTION 1,250 MG in NS (IVPB) 250 ML IV SCH (19:31)
[2019-10-02] MEDS: HYDROcodone/APAP 5 MG/325 MG (LORTAB) TAB PO PRN (01:41)
[2019-10-02] MEDS: PIPERACILLIN/TAZO 4.5 GM/NS 100 ML IV SCH ×4 (01:42→09:32)
[2019-10-02 03:26] VITALS: BP 116/61
[2019-10-02 05:42] LABS: HEMOGLOBIN 9.5 G/DL (13.3-17.7); MEAN PLATELET VOLUME 9.6 FL (7.4-10.4); RED CELL DISTRIBUTION WIDTH 14.4 % (10.0-14.5); WHITE BLOOD COUNT 8.4 10^3/uL (4.3-11.0)
[2019-10-02] MEDS: MULTIVIT W/MINERALS TAB (THERAGRAN M) PO SCH (06:06)
[2019-10-02] MEDS: KCL 20 MEQ TAB (K-DUR) PO SCH (06:06)
[2019-10-02] MEDS: inSUlin ASPART (NovoLOG) 1 UNIT/0.01 ML (CHARGE PER UNIT) SC SCH ×2 (06:06→11:30)
[2019-10-02 06:09] LABS: ALANINE AMINOTRANSFERASE 14 U/L (0-55); ALBUMIN 2.3 GM/DL (3.2-4.5); ALKALINE PHOSPHATASE 120 U/L (40-136); BILIRUBIN,TOTAL 0.8 MG/DL (0.1-1.0); BUN/CREATININE RATIO 13; CARBON DIOXIDE 22 MMOL/L (21-32); CHLORIDE 102 MMOL/L (98-107); GFR ESTIMATED > 60; GLUCOSE 93 MG/DL (70-105); POTASSIUM 3.9 MMOL/L (3.6-5.0); SODIUM 131 MMOL/L (135-145); TOTAL PROTEIN 5.9 GM/DL (6.4-8.2)
[2019-10-02 08:00] VITALS: BP 136/68
[2019-10-02] MEDS: PREGABALIN 50 MG (LYRICA) CAP PO SCH (09:30)
[2019-10-02] MEDS: PANTOPRAZOLE 40 MG (PROTONIX) TAB PO SCH (09:30)
[2019-10-02] MEDS: DIGOXIN 0.125 MG (LANOXIN) TAB PO SCH (09:30)
[2019-10-02] MEDS: FOLIC ACID 1 MG TAB PO SCH (09:30)
[2019-10-02] MEDS: FUROSEMIDE 20 MG (LASIX) TAB PO SCH (09:30)
[2019-10-02] MEDS: lisINopril 10 MG (PRINIVIL) TABLET PO SCH (09:30)
--- NOTE | 2019-10-02 09:52 | Progress Note - Cardiology ---
Cardiology SOAP Progress Note Subjective: Sitting up in a recliner at the bedside. Denies any c/o CP, palpitations, dyspnea. Objective: I&O/Vital Signs 10/01/19 10/02/19 10/02/19 10/02/19 23:25 01:00 03:26 07:24 Temp 36.4 36.7 Pulse 78 80 73 Resp 22 20 B/P (MAP) 114/56 (75) 116/61 (79) Pulse Ox 94 96 O2 Delivery Nasal Cannula Nasal Cannula Nasal Cannula O2 Flow Rate 2.00 2.00 2.00 10/02/19 00:00 Intake Total 1986.5 ml Balance 1986.5 ml Weight (Pounds): 179 Weight (Ounces): 9.0 Weight (Calculated Kilograms): 81.946608 Constitutional: well-developed, other (thin) Respiratory: No accessory muscle use, No respiratory distress; chest expansion is symmetric, chest is bilaterally symmetric, other (good air entry; prolonged expiratory phase) Cardiovascular: regular rate-rhythm; No JVD; S1 and S2 Gastrointestional: No tender; audible bowel sounds Extremities: no lower extremity edema bilateral Neurologic/Psychiatric: other (moves extremities) Skin: normal color, warm/dry, other (S/P partial amputation of right foot; dressing and wound vac in place) Results/Procedures: Labs Laboratory Tests 10/01/19 11:04: Glucometer 165H 10/01/19 17:13: Glucometer 180H 10/01/19 20:49: Glucometer 266H 10/02/19 05:11: Glucometer 104 10/02/19 05:20: White Blood Count 8.4, Red Blood Count 2.98L, Hemoglobin 9.5#L, Hematocrit 29L, Mean Corpuscular Volume 96, Mean Corpuscular Hemoglobin 32, Mean Corpuscular Hemoglobin Concent 33, Red Cell Distribution Width 14.4, Platelet Count 198, Mean Platelet Volume 9.6, Sodium Level 131L, Potassium Level 3.9, Chloride Level 102, Carbon Dioxide Level 22, Anion Gap 7, Blood Urea Nitrogen 9, Creatinine 0.70, Estimat Glomerular Filtration Rate > 60, BUN/Creatinine Ratio 13, Glucose Level 93, Calcium Level 8.0L, Corrected Calcium 9.4, Total Bilirubin 0.8, Aspartate Amino Transf (AST/SGOT) 19, Alanine Aminotransferase (ALT/SGPT) 14, Alkaline Phosphatase 120, Total Protein 5.9L, Albumin 2.3L Microbiology 09/28/19 Blood Culture - Preliminary, Resulted No growth 09/28/19 Gram Stain - Final, Complete 09/28/19 Wound Culture - Final, Complete Gram Pos Mixed Bacterial Ariadna Staphylococcus aureus Laboratory Tests 10/01/19 05:52 10/02/19 05:20 A/P: Assessment: Non-specific chest discomfort and vague symptoms of shortness of breath (none currently) without any evidence of ACS - no further c/o COPD H/o PAF - currently SR (maintained on Dig and Cardizem) Echocardiogram of Sep 30, 2019: LVEF 60-65%. Grade 2 diastolic dysfunction. Mild MR. AoV thickening consistent with sclerosis. RVSP 22mmHg Probably chronic, mild diastolic CHF Right foot wound with osteomyelitis - s/p partial right foot amputation per Dr. Mackey on 09-30-2019 Xarelto for stroke prophylaxis - currently being held pending surgery COPD DM 2 H/o PAD for which he has seen Dr Barajas but has not been compliant with w/u or f/u Tobaccoism - cessation advised GERD Anxiety/depression ETOH abuse - reports 4-5 glassed of wine and whiskey daily Plan: * Continue current medication regimen * Previously on Xarelto for stroke prophylaxis - held d/t surgery - advise resumption as soon as possible, when deemed surgically safe * Monitor lab * I spoke with him in detail and answered CV-related questions ESTHER MACKEY Oct 02, 2019 09:52
--- NOTE | 2019-10-02 10:03 | Physical Therapy Daily Note ---
PT Daily Note-Current Subjective Patient is agreeable to therapy at this time. Appearance Patient is in recliner with feet up, call light and bedside table within reach. Mental Status Patient Orientation: Normal For Age Attachments: Oxygen, IV Transfers SCALE: Activities may be completed with or without assistive devices. 6-Jaclovewiz-erupyiu completes the activity by him/herself with no assistance from a helper. 5-Set-up or Clean-up Assistance-helper sets up or cleans up; patient completes activity. Wilton assists only prior to or following the activity. 4-Supervision or Touching Assistance-helper provides verbal cues and/or touching/steadying and/or contact guard assistance as patient completes activity. Assistance may be provided throughout the activity or intermittently. 3-Partial/Moderate Assistance-helper does LESS THAN HALF the effort. Wilton lift s, holds or supports trunk or limbs, but provides less than half the effort. 2-Substantial/Maximal Assistance-helper does MORE THAN HALF the effort. Wilton lifts or holds trunk or limbs and provides more than half the effort. 8-Tmwetlnql-dupqvn does ALL the effort. Patient does none of the effort to complete the activity. Or, the assistance of 2 or more helpers is required for the patient to complete the activity. If activity was not attempted, code reason: 7-Patient Refused. 9-Not Applicable-not attempted and the patient did not perform the activity before the current illness, exacerbation or injury. 10-Not Attempted due to Environmental Limitations-(lack of equipment, weather restraints, etc.). 88-Not Attempted due to Medical Conditions or Safety Concerns. Roll Left & Right (QC): 6 Lying to Sitting/Side of Bed(Q: 6 Sit to Stand (QC): 3 Chair/Lec-lh-Eeqnp Xfer(QC): 3 transfer bed to recliner with use of FWW and unable to maintain NWB right foot Weight Bearing Right Lower Extremity: Right Non Weight Bearing Left Lower Extremity: Left Weight Bearing/Tolerated Check with Surgery for right foot weight bearing due to right 5th metatarsal and phalange amputation with wound vac placement Gait Training Does the Patient Walk?: No and Walking Goal NOT indicated Exercises Supine Ex: Ankle pumps (10BLE), Heel Slides (10BLE), Straight leg raise (10BLE) Seated Therapy Exercises: Long arc quads (10BLE), Hip flexion (10BLE) Treatments BLE exercises, bed mobility, transfers. Assessment Patient tolerates exercises well. In transferring patient is not compliant with non weight bearing status. PT Shelter Goals Shelter Goals PT Spot Billing Clerk Goals Time Frame: Oct 17, 2019 Roll Left & Right (QC): 6 Sit to Lying (QC): 6 Lying-Sitting on Side/Bed(QC): 6 Sit to Stand (QC): 4 Chair/Awn-il-Qpodc Xfer(QC): 4 Toilet Transfer (QC): 4 Does the Patient Walk: No and Walking Goal NOT indicated PT Plan Problem List Problem List: Activity Tolerance, Functional Strength, Safety, Balance, Transfer Treatment/Plan Treatment Plan: Continue Plan of Care Treatment Plan: Education, Functional Activity Mushtaq, Functional Strength, Safety, Therapeutic Exercise, Transfers Treatment Duration: Oct 17, 2019 Frequency: 6 times per week Estimated Hrs Per Day: .25 hour per day Patient and/or Family Agrees t: Yes Safety Risks/Education Patient Education: Transfer Techniques, Reviewed Precautions Teaching Recipient: Patient Teaching Methods: Discussion Response to Teaching: Reinforcement Needed Discharge Recommendations Therapy Discharge Recommendati: Other, See Comments (assisted facility) Time/GCodes Time In: 847 Time Out: 901 Total Billed Treatment Time: 14 Total Billed Treatment 1 visit FA 14 FIORELLA CHAVEZ PT Oct 02, 2019 10:03
[2019-10-02 12:00] VITALS: BP 145/71
--- NOTE | 2019-10-02 12:39 | Progress Note ---
Subjective Subjective/Events-last exam Patient seen and examined this morning. States he is feeling well and is not having much pain in his foot. Denies shortness of breath, chest pain, fever, abdominal pain, n/v. Review of Systems General: No Chills Pulmonary: No Dyspnea; Cough Cardiovascular: No: Chest Pain, Palpitations, Edema Gastrointestinal: No: Nausea, Vomiting, Abdominal Pain Objective Exam Last Set of Vital Signs Vital Signs Date Time Temp Pulse Resp B/P (MAP) Pulse Ox O2 Delivery O2 Flow Rate FiO2 10/02/19 08:00 Nasal Cannula 2.00 10/02/19 08:00 36.6 80 20 136/68 (90) 95 09/29/19 01:32 21 Capillary Refill : Less Than 3 SecondsLess Than 3 Seconds I&O Intake and Output 10/02/19 00:00 Intake Total 2506.5 ml Balance 2506.5 ml Intake Oral 2004 ml IV Total 502.5 ml # Voids 6 General: Alert, Oriented X3, No Acute Distress HEENT: EOMI Lungs: Normal Air Movement, Other (rales) Heart: Regular Rate, Other (systolic murmur) Abdomen: Normal Bowel Sounds, Soft, No Tenderness Extremities: Other (mild bilateral lower extremity edema) Skin: Other (wond vac to right foot, no surrounding erythema or swelling) Results/Procedures Lab Laboratory Tests 10/01/19 17:13: Glucometer 180H 10/01/19 20:49: Glucometer 266H 10/02/19 05:11: Glucometer 104 10/02/19 05:20: White Blood Count 8.4, Red Blood Count 2.98L, Hemoglobin 9.5#L, Hematocrit 29L, Mean Corpuscular Volume 96, Mean Corpuscular Hemoglobin 32, Mean Corpuscular Hemoglobin Concent 33, Red Cell Distribution Width 14.4, Platelet Count 198, Mean Platelet Volume 9.6, Sodium Level 131L, Potassium Level 3.9, Chloride Level 102, Carbon Dioxide Level 22, Anion Gap 7, Blood Urea Nitrogen 9, Creatinine 0.70, Estimat Glomerular Filtration Rate > 60, BUN/Creatinine Ratio 13, Glucose Level 93, Calcium Level 8.0L, Corrected Calcium 9.4, Total Bilirubin 0.8, Aspartate Amino Transf (AST/SGOT) 19, Alanine Aminotransferase (ALT/SGPT) 14, Alkaline Phosphatase 120, Total Protein 5.9L, Albumin 2.3L 10/02/19 11:40: Glucometer 144H Microbiology 09/28/19 Blood Culture - Preliminary, Resulted No growth 09/28/19 Gram Stain - Final, Complete 09/28/19 Wound Culture - Final, Complete Gram Pos Mixed Bacterial Ariadna Staphylococcus aureus Assessment/Plan Assessment/Plan Assessment & Plan s/p right 5th metatarsal amputation- on IV vanc and zosyn, surgery managing Diabetes Mellitus, non-insulin dependent- on sliding scale insulin Hyponatremia-likely multifactorial CHF- chest xray showed bilateral basilar effusions and pulmonary vascular congestion, on oral lasix Paroxysmal Atrial Fibrillation- appreciate cardiology consult, patients rivaroxaban scheduled to restart tonight Should be able to d/c to long-term soon Clinical Quality Measures DVT/VTE Risk/Contraindication: Risk Factor Score Per Nursin RFS Level Per Nursing on Admit: 4+=Very High Other: PT POSSIBLY HAS SURGERY IN NEXT FEW DAYS. DR DARBY ORDERED TO HOLD UNTIL THEY KNOW WHEN SURGERY WILL BE SCHEDULED IN CASE SURGEON WANTS TO PERFORM SURGERY TODAY ESTHER LEONARDO,MED STUDENT Oct 02, 2019 12:39
--- NOTE | 2019-10-02 13:09 | Progress Note ---
Subjective Date Seen by a Provider: Oct 02, 2019 Time Seen by a Provider: 13:00 Subjective/Events-last exam Patient sitting up in bed eating lunch. Denies any right foot pain. Tolerating diet. Working with PT. No fever/chills. Wound vac in place. Objective Exam Vital Signs Date Time Temp Pulse Resp B/P (MAP) Pulse Ox O2 Delivery O2 Flow Rate FiO2 10/02/19 08:00 Nasal Cannula 2.00 10/02/19 08:00 36.6 80 20 136/68 (90) 95 Nasal Cannula 2.00 10/02/19 07:24 Nasal Cannula 2.00 10/02/19 06:47 71 10/02/19 03:26 36.7 73 20 116/61 (79) 96 Nasal Cannula 2.00 10/02/19 01:00 80 10/01/19 23:25 36.4 78 22 114/56 (75) 94 Nasal Cannula 2.00 10/01/19 20:00 Nasal Cannula 2.00 10/01/19 20:00 36.8 83 18 148/74 (98) 97 Nasal Cannula 3.00 10/01/19 19:10 96 Nasal Cannula 2.00 10/01/19 19:00 90 10/01/19 16:00 36.3 78 20 139/75 (96) 97 Nasal Cannula 3.00 10/01/19 15:24 Nasal Cannula I & O 10/02/19 07:00 Intake Total 2206.5 ml Balance 2206.5 ml Capillary Refill : Less Than 3 SecondsLess Than 3 Seconds General Appearance: No Apparent Distress, WD/WN Neck: Full Range of Motion, Normal Inspection, Non Tender Respiratory: Normal Breath Sounds, No Accessory Muscle Use, No Respiratory Distress Cardiovascular: Regular Rate, Rhythm, No Murmur Gastrointestinal: normal bowel sounds, non tender, soft Extremity: Normal Capillary Refill, Normal Range of Motion, Swelling (Right foot), Other (Right foot wound vac C/D/I.) Neurologic/Psychiatric: Alert, Oriented x3 Skin: Normal Color, Warm/Dry, Other (Right foot wound no redness, erythema, or drainage. Wound vac in place.) Results Lab Laboratory Tests 10/01/19 17:13: Glucometer 180H 10/01/19 20:49: Glucometer 266H 10/02/19 05:11: Glucometer 104 10/02/19 05:20: White Blood Count 8.4, Red Blood Count 2.98L, Hemoglobin 9.5#L, Hematocrit 29L, Mean Corpuscular Volume 96, Mean Corpuscular Hemoglobin 32, Mean Corpuscular Hemoglobin Concent 33, Red Cell Distribution Width 14.4, Platelet Count 198, Mean Platelet Volume 9.6, Sodium Level 131L, Potassium Level 3.9, Chloride Level 102, Carbon Dioxide Level 22, Anion Gap 7, Blood Urea Nitrogen 9, Creatinine 0.70, Estimat Glomerular Filtration Rate > 60, BUN/Creatinine Ratio 13, Glucose Level 93, Calcium Level 8.0L, Corrected Calcium 9.4, Total Bilirubin 0.8, Aspartate Amino Transf (AST/SGOT) 19, Alanine Aminotransferase (ALT/SGPT) 14, Alkaline Phosphatase 120, Total Protein 5.9L, Albumin 2.3L 10/02/19 11:40: Glucometer 144H Microbiology 09/28/19 Blood Culture - Preliminary, Resulted No growth 09/28/19 Gram Stain - Final, Complete 09/28/19 Wound Culture - Final, Complete Gram Pos Mixed Bacterial Ariadna Staphylococcus aureus Assessment/Plan Assessment/Plan Assess & Plan/Chief Complaint A 73 year old male with 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 S/P Resection, right fifth metatarsal and phalanx and wound VAC placement. VSS WBC WNL Continue with wound vac. IV abx. Pain and Nausea meds prn. PT Tight Glycemic control. ok to restart anticoagulation. Clinical Quality Measures DVT/VTE Risk/Contraindication: Risk Factor Score Per Nursin RFS Level Per Nursing on Admit: 4+=Very High Other: PT POSSIBLY HAS SURGERY IN NEXT FEW DAYS. DR DARBY ORDERED TO HOLD UNTIL THEY KNOW WHEN SURGERY WILL BE SCHEDULED IN CASE SURGEON WANTS TO PERFORM SURGERY TODAY АНДРЕЙ MARINELLI SR. MANAGER Oct 02, 2019 13:09
--- NOTE | 2019-10-02 14:35 | NUR ---
Swing Bed Note: Qualifies for swing bed for continued need of IV abx et continued wound care (Osteomyelitis) Anticipate admission to swing bed today 10/02/18. Thank you for this referral!
--- NOTE | 2019-10-02 14:50 | Discharge Summary ---
Discharge Summary Hospital Course Hospital Course Date of Admission: Sep 28, 2019 at 17:36 Admission Diagnosis : Family Physician/Provider: Mohamud Salas MD Date of Discharge: 10/02/19 Discharge Diagnosis: Right fifth metatarsal osteomyelitis s/p resection Diabetes mellitus Hyponatremia Hospital Course: Pt admitted and Surgery consulted, had resection of fifth right metatarsal, tr eated with zosyn and vancomycin. Cultures positive for MRSA sensitive to clindamycin. Discharged to swing bed with wound vac in place and on zosyn and vancomycin. Labs and Pending Lab Test: Laboratory Tests 10/01/19 17:13: Glucometer 180H 10/01/19 20:49: Glucometer 266H 10/02/19 05:11: Glucometer 104 10/02/19 05:20: White Blood Count 8.4, Red Blood Count 2.98L, Hemoglobin 9.5#L, Hematocrit 29L, Mean Corpuscular Volume 96, Mean Corpuscular Hemoglobin 32, Mean Corpuscular Hemoglobin Concent 33, Red Cell Distribution Width 14.4, Platelet Count 198, Mean Platelet Volume 9.6, Sodium Level 131L, Potassium Level 3.9, Chloride Level 102, Carbon Dioxide Level 22, Anion Gap 7, Blood Urea Nitrogen 9, Creatinine 0.70, Estimat Glomerular Filtration Rate > 60, BUN/Creatinine Ratio 13, Glucose Level 93, Calcium Level 8.0L, Corrected Calcium 9.4, Total Bilirubin 0.8, Aspart ate Amino Transf (AST/SGOT) 19, Alanine Aminotransferase (ALT/SGPT) 14, Alkaline Phosphatase 120, Total Protein 5.9L, Albumin 2.3L 10/02/19 11:40: Glucometer 144H Microbiology 09/28/19 Blood Culture - Preliminary, Resulted No growth 09/28/19 Gram Stain - Final, Complete 09/28/19 Wound Culture - Final, Complete Gram Pos Mixed Bacterial Ariadna Staphylococcus aureus Home Meds Active Reported Metformin HCl 500 Mg Tablet 500 Mg PO DAILY Doxycycline Hyclate 100 Mg Capsule 100 Mg PO BID 10 Days 10 DAY SUPPLY FILLED 09-21-19 Xarelto (Rivaroxaban) 20 Mg Tablet 20 Mg PO DAILY Cartia Xt (Diltiazem HCl) 240 Mg Cap.er.24h 240 Mg PO DAILY Protonix (Pantoprazole Sodium) 40 Mg Tablet.dr 40 Mg PO DAILY Lyrica (Pregabalin) 50 Mg Capsule 50 Mg PO BID Lasix (Furosemide) 20 Mg Tablet 20 Mg PO DAILY Potassium Chloride 20 Meq Tablet.er 20 Meq PO DAILY Lisinopril 10 Mg Tablet 10 Mg PO DAILY Digoxin 125 Mcg Tablet 125 Mcg PO DAILY Assessment/Pt DC Instructions See above Discharge Physical Examination Allergies: Coded Allergies: No Known Drug Allergies (Unverified , 10/25/17) General Appearance: No Apparent Distress, WD/WN Respiratory: Crackles (right) Cardiovascular: Regular Rate, Rhythm, No Murmur Skin: Normal Color, Warm/Dry, Other (wound vac in place on right foot) Neurologic/Psychiatric: Alert, Normal Mood/Affect Clinical Quality Measures DVT/VTE Risk/Contraindication: Risk Factor Score Per Nursin RFS Level Per Nursing on Admit: 4+=Very High Other: PT POSSIBLY HAS SURGERY IN NEXT FEW DAYS. DR DARBY ORDERED TO HOLD UNTIL THEY KNOW WHEN SURGERY WILL BE SCHEDULED IN CASE SURGEON WANTS TO PERFORM SURGERY TODAY AUSTEN DARBY MD Oct 02, 2019 14:50
[2019-10-02] MEDS ORDERED: RIVAROXABAN 20 MG TABLET (XARELTO) PO SCH (17:00)
--- NOTE | 2019-10-02 17:03 | Progress Note - Cardiology ---
Cardiology SOAP Progress Note Subjective: Some discomfort at site of foot surgery No cp or palp or syncope No shortness of breath at rest Gen malaise present Objective: I&O/Vital Signs 10/02/19 10/02/19 10/02/19 10/02/19 06:47 07:24 08:00 08:00 Temp 36.6 Pulse 71 80 Resp 20 B/P (MAP) 136/68 (90) Pulse Ox 95 O2 Delivery Nasal Cannula Nasal Cannula Nasal Cannula O2 Flow Rate 2.00 2.00 2.00 10/02/19 10/02/19 12:00 12:44 Temp 36.1 Pulse 66 68 Resp 20 B/P (MAP) 145/71 (95) Pulse Ox 97 O2 Delivery Nasal Cannula O2 Flow Rate 2.00 10/02/19 00:00 Intake Total 1986.5 ml Balance 1986.5 ml Weight (Pounds): 179 Weight (Ounces): 9.0 Weight (Calculated Kilograms): 81.929742 Constitutional: well-developed, other (thin) Respiratory: No accessory muscle use, No respiratory distress; chest expansion is symmetric, chest is bilaterally symmetric, other (good air entry; prolonged expiratory phase) Cardiovascular: regular rate-rhythm; No JVD; S1 and S2 Gastrointestional: No tender; audible bowel sounds Extremities: no lower extremity edema bilateral Neurologic/Psychiatric: other (moves extremities) Skin: normal color, warm/dry, other (S/P partial amputation of right foot; dressing and wound vac in place) Results/Procedures: Labs Laboratory Tests 10/01/19 17:13: Glucometer 180H 10/01/19 20:49: Glucometer 266H 10/02/19 05:11: Glucometer 104 10/02/19 05:20: White Blood Count 8.4, Red Blood Count 2.98L, Hemoglobin 9.5#L, Hematocrit 29L, Mean Corpuscular Volume 96, Mean Corpuscular Hemoglobin 32, Mean Corpuscular Hemoglobin Concent 33, Red Cell Distribution Width 14.4, Platelet Count 198, Mean Platelet Volume 9.6, Sodium Level 131L, Potassium Level 3.9, Chloride Level 102, Carbon Dioxide Level 22, Anion Gap 7, Blood Urea Nitrogen 9, Creatinine 0.70, Estimat Glomerular Filtration Rate > 60, BUN/Creatinine Ratio 13, Glucose Level 93, Calcium Level 8.0L, Corrected Calcium 9.4, Total Bilirubin 0.8, Aspartate Amino Transf (AST/SGOT) 19, Alanine Aminotransferase (ALT/SGPT) 14, Alkaline Phosphatase 120, Total Protein 5.9L, Albumin 2.3L 10/02/19 11:40: Glucometer 144H Microbiology 09/28/19 Blood Culture - Preliminary, Resulted No growth 09/28/19 Gram Stain - Final, Complete 09/28/19 Wound Culture - Final, Complete Gram Pos Mixed Bacterial Ariadna Staphylococcus aureus Laboratory Tests 10/01/19 05:52 10/02/19 05:20 A/P: Assessment: Non-specific chest discomfort and vague symptoms of shortness of breath (none currently) without any evidence of ACS - no further c/o Mild hyponatremia, probably due to diuretic use COPD H/o PAF - currently SR (maintained on Dig and Cardizem) Echocardiogram of Sep 30, 2019: LVEF 60-65%. Grade 2 diastolic dysfunction. Mild MR. AoV thickening consistent with sclerosis. RVSP 22mmHg Probably chronic, mild diastolic CHF Right foot wound with osteomyelitis - s/p partial right foot amputation per Dr. Mackey on 09-30-2019 Xarelto for stroke prophylaxis - currently being held pending surgery COPD DM 2 H/o PAD for which he has seen Dr Barajas but has not been compliant with w/u or f/u Tobaccoism - cessation advised GERD Anxiety/depression ETOH abuse - reports 4-5 glassed of wine and whiskey daily Plan: * Continue current medication regimen * Previously on Xarelto for stroke prophylaxis - held d/t surgery - advise resumption as soon as possible, when deemed surgically safe * Monitor lab * I spoke with him and answered CV-related questions GAYLE KNIGHT MD FACP FACC CCDS Oct 02, 2019 17:03
--- OUTSIDE RECORDS SUMMARY | 2019-10-04 13:54 | XMS REPORT | Continuity of Care Document ---
Author Organization Unknown Address Unknown Phone Unavailable Allergies Active Description Code Type Severity Reaction Onset Reported/Identified Relationship to Patient Clinical Status Yes No Known Drug Allergies [id number] Drug Allergy Unknown N/A 10/25/2017 Medications There is no data. Problems Date Dx Coded Attending Type Code Diagnosis Diagnosed By 10/25/2017 REYES ESPINAL Ot E11.9 TYPE 2 DIABETES MELLITUS WITHOUT COMPLIC 10/25/2017 REYES ESPINAL Ot I 10 ESSENTIAL (PRIMARY) HYPERTENSION 10/25/2017 REYES ESPINAL Ot I48.91 UNSPECIFIED ATRIAL FIBRILLATION 10/25/2017 REYES ESPINAL Ot K21.9 GASTRO-ESOPHAGEAL REFLUX DISEASE WITHOUT 10/25/2017 REYES ESPINAL Ot L02.11 CUTANEOUS ABSCESS OF NECK 10/25/2017 REYES ESPINAL Ot L72.3 SEBACEOUS CYST 10/25/2017 REYES ESPINAL Ot R22.1 LOCALIZED SWELLING, MASS AND LUMP, NECK 10/25/2017 REYES ESPINAL Ot Z87.01 PERSONAL HISTORY OF PNEUMONIA (RECURRENT 12/12/2017 DARYN ADAMS MD Ot H26.499 OTHER SECONDARY CATARACT, UNSPECIFIED EY 12/12/2017 DARYN ADAMS MD Ot Z01.818 ENCOUNTER FOR OTHER PREPROCEDURAL EXAMIN 12/13/2017 DARYN ADAMS MD Ot H26.499 OTHER SECONDARY CATARACT, UNSPECIFIED EY 12/13/2017 DARYN ADAMS MD Ot Z01.818 ENCOUNTER FOR OTHER PREPROCEDURAL EXAMIN 12/20/2017 DARYN ADAMS MD Ot E11.36 TYPE 2 DIABETES MELLITUS WITH DIABETIC C 12/20/2017 DARYN ADAMS MD Ot F17.200 NICOTINE DEPENDENCE, UNSPECIFIED, UNCOMP 12/20/2017 DARYN ADAMS MD Ot H26.40 UNSPECIFIED SECONDARY CATARACT 12/20/2017 DARYN ADAMS MD Ot I42 .9 CARDIOMYOPATHY, UNSPECIFIED 12/20/2017 DARYN ADAMS MD Ot I48.91 UNSPECIFIED ATRIAL FIBRILLATION 12/20/2017 DARYN ADAMS MD Ot M79 .2 NEURALGIA AND NEURITIS, UNSPECIFIED 12/20/2017 DARYN ADAMS MD Ot R17 UNSPECIFIED JAUNDICE 12/20/2017 DARYN ADAMS MD Ot Z79.01 CARE HOME (CURRENT) USE OF ANTICOAGULANT 12/20/2017 DARYN ADAMS MD Ot Z79.84 CARE HOME (CURRENT) USE OF ORAL HYPOGLYC 12/20/2017 DARYN ADAMS MD, Ot Z79.899 OTHER PUBLIC UTILITIES SALES REPRESENTATIVE (CURRENT) DRUG THERAPY 12/23/2017 DARYN ADAMS MD, Ot E11.36 TYPE 2 DIABETES MELLITUS WITH DIABETIC C 12/23/2017 DARYN ADAMS MD Ot F17.200 NICOTINE DEPENDENCE, UNSPECIFIED, UNCOMP 12/23/2017 DARYN ADAMS MD Ot H26.40 UNSPECIFIED SECONDARY CATARACT 12/23/2017 DARYN ADAMS MD Ot I42 .9 CARDIOMYOPATHY, UNSPECIFIED 12/23/2017 DARYN ADAMS MD Ot I48.91 UNSPECIFIED ATRIAL FIBRILLATION 12/23/2017 DARYN ADAMS MD, Ot M79 .2 NEURALGIA AND NEURITIS, UNSPECIFIED 12/23/2017 DARYN ADAMS MD Ot R17 UNSPECIFIED JAUNDICE 12/23/2017 DARYN ADAMS MD Ot Z79.01 CARE HOME (CURRENT) USE OF ANTICOAGULANT 12/23/2017 DARYN ADAMS MD Ot Z79.84 CARE HOME (CURRENT) USE OF ORAL HYPOGLYC 12/23/2017 DARYN ADAMS MD Ot Z79.899 OTHER CARE HOME (CURRENT) DRUG THERAPY 07/11/2018 GOMEZ DO REGAN Ot D64.9 ANEMIA, UNSPECIFIED 07/11/2018 JASON DO REGAN Ot E11.9 TYPE 2 DIABETES MELLITUS WITHOUT COMPLIC 07/11/2018 JASON DO REGAN Ot E83.42 HYPOMAGNESEMIA 07/11/2018 JASON DO REGAN Ot E86.0 DEHYDRATION 07/11/2018 JASON DO REGAN Ot F03.90 UNSPECIFIED DEMENTIA WITHOUT BEHAVIORAL 07/11/2018 JASON AL REGAN Ot F10.20 ALCOHOL DEPENDENCE, UNCOMPLICATED 07/11/2018 JASON AL REGAN Ot F32.9 MAJOR DEPRESSIVE DISORDER, SINGLE EPISOD 07/11/2018 JASON AL REGAN Ot F41.9 ANXIETY DISORDER, UNSPECIFIED 07/11/2018 GOMEZ DO REGAN Ot I10 ESSENTIAL (PRIMARY) HYPERTENSION 07/11/2018 JASON AL REGAN Ot I42.9 CARDIOMYOPATHY, UNSPECIFIED 07/11/2018 JASON DO REGAN Ot I48.91 UNSPECIFIED ATRIAL FIBRILLATION 07/11/2018 JASON DO REGAN Ot J18.1 LOBAR PNEUMONIA, UNSPECIFIED ORGANISM 07/11/2018 JASON AL REGAN Ot J90 PLEURAL EFFUSION, NOT ELSEWHERE CLASSIFI 07/11/2018 JASON AL REGAN Ot J96.90 RESPIRATORY FAILURE, UNSP, UNSP W HYPOXI 07/11/2018 JASON AL REGAN Ot K21.9 GASTRO-ESOPHAGEAL REFLUX DISEASE WITHOUT 07/11/2018 JASON AL REGAN Ot K57.90 DVRTCLOS OF INTEST, PART UNSP, W/O PERF 07/11/2018 JASON AL REGAN Ot K75.9 INFLAMMATORY LIVER DISEASE, UNSPECIFIED 07/11/2018 JASON AL REGAN Ot K80.20 CALCULUS OF GALLBLADDER W/O CHOLECYSTITI 07/11/2018 JASON AL REGAN Ot M62.81 MUSCLE WEAKNESS (GENERALIZED) 07/11/2018 JASON AL REGAN Ot R26.81 UNSTEADINESS ON FEET 07/11/2018 JASON AL REGAN Ot W19.XX XA UNSPECIFIED FALL, INITIAL ENCOUNTER 07/11/2018 JASON AL REGAN Ot Y92.19 3 BEDROOM IN [facility] RESIDENTIAL INSTITUTION A 07/11/2018 JASON AL REGAN Ot Z66 DO NOT RESUSCITATE 07/11/2018 JASON AL REGAN Ot Z79.01 PUBLIC UTILITIES SALES REPRESENTATIVE (CURRENT) USE OF ANTICOAGULANT 07/11/2018 JASON AL REGAN Ot Z79.84 PUBLIC UTILITIES SALES REPRESENTATIVE (CURRENT) USE OF ORAL HYPOGLYC 09/04/2018 AMY HEREDIA APRN Ot J18.9 PNEUMONIA, UNSPECIFIED ORGANISM 09/04/2018 AMY HEREDIA APRN Ot J44.9 CHRONIC OBSTRUCTIVE PULMONARY DISEASE, U 09/04/2018 AMY HEREDIA COLORED LEATHER SETTER Ot J90 PLEURAL EFFUSION, NOT ELSEWHERE CLASSIFI 09/04/2018 AMY HEREDIA COLORED LEATHER SETTER Ot J98.4 OTHER DISORDERS OF LUNG 09/09/2018 AMY HEREDIA COLORED LEATHER SETTER Ot J18.9 PNEUMONIA, UNSPECIFIED ORGANISM 09/09/2018 AMY HEREDIA COLORED LEATHER SETTER Ot J44.9 CHRONIC OBSTRUCTIVE PULMONARY DISEASE, U 09/09/2018 AMY HEREDIA COLORED LEATHER SETTER Ot J90 PLEURAL EFFUSION, NOT ELSEWHERE CLASSIFI 09/09/2018 AMY HEREDIA COLORED LEATHER SETTER Ot J98.4 OTHER DISORDERS OF LUNG 09/22/2018 AMY HEREDIA COLORED LEATHER SETTER Ot J18.9 PNEUMONIA, UNSPECIFIED ORGANISM 09/22/2018 AMY HEREDIA COLORED LEATHER SETTER Ot J44.9 CHRONIC OBSTRUCTIVE PULMONARY DISEASE, U 09/22/2018 AMY HEREDIA COLORED LEATHER SETTER Ot J90 PLEURAL EFFUSION, NOT ELSEWHERE CLASSIFI 09/22/2018 AMY HEREDIA COLORED LEATHER SETTER Ot J98.4 OTHER DISORDERS OF LUNG 12/09/2018 GERRY GILL, MALISSA K Ot E11.22 TYPE 2 DIABETES MELLITUS W DIABETIC CIVIL ENGINEERING PROFESSOR 12/09/2018 TOMÁS GARRETT MDJ K Ot N18.9 CHRONIC KIDNEY DISEASE, UNSPECIFIED 12/22/2018 MINDY GARRETT MDKAJ K Ot E11.22 TYPE 2 DIABETES MELLITUS W DIABETIC CIVIL ENGINEERING PROFESSOR 12/22/2018 MALISSA GARRETT MD K Ot N18.9 CHRONIC KIDNEY DISEASE, UNSPECIFIED 01/07/2019 MALISSA GARRETT MD K Ot E11.22 TYPE 2 DIABETES MELLITUS W DIABETIC CIVIL ENGINEERING PROFESSOR 01/07/2019 MINDY GARRETT MDKAJ K Ot N18.9 CHRONIC KIDNEY DISEASE, UNSPECIFIED 05/04/2019 MINDY GARRETT MDKAJ K Ot E11.22 TYPE 2 DIABETES MELLITUS W DIABETIC CIVIL ENGINEERING PROFESSOR 05/04/2019 MALISSA GARRETT MD K Ot N18.9 CHRONIC KIDNEY DISEASE, UNSPECIFIED 05/25/2019 AMY HEREDIA COLORED LEATHER SETTER Ot J18.9 PNEUMONIA, UNSPECIFIED ORGANISM 05/25/2019 AMY HEREDIA COLORED LEATHER SETTER Ot J44.9 CHRONIC OBSTRUCTIVE PULMONARY DISEASE, U 05/25/2019 AMY HEREDIA COLORED LEATHER SETTER Ot J90 PLEURAL EFFUSION, NOT ELSEWHERE CLASSIFI 05/25/2019 AMY HEREDIA APRN Ot J98.4 OTHER DISORDERS OF LUNG 05/25/2019 MALISSA GARRETT MD Ot E11.22 TYPE 2 DIABETES MELLITUS W DIABETIC CIVIL ENGINEERING PROFESSOR 05/25/2019 MALISSA GARRETT MD Ot N18.9 CHRONIC KIDNEY DISEASE, UNSPECIFIED 05/25/2019 AMY HEREDIA APRN Ot J18.9 PNEUMONIA, UNSPECIFIED ORGANISM 05/25/2019 AMY HEREDIA APRN Ot J44.9 CHRONIC OBSTRUCTIVE PULMONARY DISEASE, U 05/25/2019 AMY HEREDIA APRN Ot J90 PLEURAL EFFUSION, NOT ELSEWHERE CLASSIFI 05/25/2019 AMY HEREDIA APRN Ot J98.4 OTHER DISORDERS OF LUNG 05/25/2019 MALISSA GARRETT MD Ot E11.22 TYPE 2 DIABETES MELLITUS W DIABETIC CIVIL ENGINEERING PROFESSOR 05/25/2019 MALISSA GARRETT MD Ot N18.9 CHRONIC KIDNEY DISEASE, UNSPECIFIED 05/27/2019 ADITHYA SANDS MD Ot A41. 9 SEPSIS, UNSPECIFIED ORGANISM 05/27/2019 ADITHYA SANDS MD Ot E11. 42 TYPE 2 DIABETES MELLITUS WITH DIABETIC P 05/27/2019 ADITHYA SANDS MD Ot E11.621 TYPE 2 DIABETES MELLITUS WITH FOOT ULCER 05/27/2019 ADITHYA SANDS MD Ot E78. 5 HYPERLIPIDEMIA, UNSPECIFIED 05/27/2019 ADITHYA SANDS MD Ot E87. 1 HYPO-OSMOLALITY AND HYPONATREMIA 05/27/2019 ADITHYA SANDS MD Ot E87. 2 ACIDOSIS 05/27/2019 ADITHYA SANDS MD Ot F10. 10 ALCOHOL ABUSE, UNCOMPLICATED 05/27/2019 ADITHYA SANDS MD Ot F17.210 NICOTINE DEPENDENCE, CIGARETTES, UNCOMPL 05/27/2019 ADITHYA SANDS MD Ot F32. 9 MAJOR DEPRESSIVE DISORDER, SINGLE EPISOD 05/27/2019 ADITHYA SANDS MD Ot F41. 9 ANXIETY DISORDER, UNSPECIFIED 05/27/2019 ADITHYA SANDS MD Ot I10 ESSENTIAL (PRIMARY) HYPERTENSION 05/27/2019 ADITHYA SANDS MD Ot I42. 9 CARDIOMYOPATHY, UNSPECIFIED 05/27/2019 ADITHYA SANDS MD Ot I48. 0 PAROXYSMAL ATRIAL FIBRILLATION 05/27/2019 ADITHYA SANDS MD, Ot K21. 9 GASTRO-ESOPHAGEAL REFLUX DISEASE WITHOUT 05/27/2019 ADITHYA SANDS MD Ot L03.115 CELLULITIS OF RIGHT LOWER LIMB 05/27/2019 WICHO GILL, ADITHYA Henriquez Ot R65. 20 SEVERE SEPSIS WITHOUT SEPTIC SHOCK 05/27/2019 WICHO GILL, ADITHYA Henriquez Ot Z23 ENCOUNTER FOR IMMUNIZATION 05/27/2019 ADITHYA SANDS MD Ot Z79. 84 CARE HOME (CURRENT) USE OF ORAL HYPOGLYC 06/02/2019 GOMEZ DO, REGAN Ot B37.2 CANDIDIASIS OF SKIN AND NAIL 06/02/2019 JASON DO, REGAN Ot D64.9 ANEMIA, UNSPECIFIED 06/02/2019 GOMEZ DO, REGAN Ot E11.42 TYPE 2 DIABETES MELLITUS WITH DIABETIC P 06/02/2019 JASON DO, REGAN Ot E11.62 1 TYPE 2 DIABETES MELLITUS WITH FOOT ULCER 06/02/2019 JASON DO REGAN Ot E83.51 HYPOCALCEMIA 06/02/2019 JASON DO, REGAN Ot E86.0 DEHYDRATION 06/02/2019 JASON DO, REGAN Ot F10.10 ALCOHOL ABUSE, UNCOMPLICATED 06/02/2019 GOMEZ DO, REGAN Ot F17.29 0 NICOTINE DEPENDENCE, OTHER TOBACCO PRODU 06/02/2019 JASON DO, REGAN Ot F32.9 MAJOR DEPRESSIVE DISORDER, SINGLE EPISOD 06/02/2019 JASON DO, REGAN Ot F41.9 ANXIETY DISORDER, UNSPECIFIED 06/02/2019 JASON DO REGAN Ot I11.0 HYPERTENSIVE HEART DISEASE WITH HEART FA 06/02/2019 JASON DO, REGAN Ot I42.9 CARDIOMYOPATHY, UNSPECIFIED 06/02/2019 GOMEZ DO, REGAN Ot I48.91 UNSPECIFIED ATRIAL FIBRILLATION 06/02/2019 JASON DO, REGAN Ot I50.9 HEART FAILURE, UNSPECIFIED 06/02/2019 JASON DO, REGAN Ot K21.9 GASTRO-ESOPHAGEAL REFLUX DISEASE WITHOUT 06/02/2019 JASON DO, REGAN Ot K75.9 INFLAMMATORY LIVER DISEASE, UNSPECIFIED 06/02/2019 AJSON DO REGAN Ot L97.51 9 NON-PRS CHRONIC ULCER OTH PRT RIGHT FOOT 06/02/2019 JASON AL REGAN Ot M62.81 MUSCLE WEAKNESS (GENERALIZED) 06/02/2019 JASON AL REGAN Ot N48.89 OTHER SPECIFIED DISORDERS OF PENIS 06/02/2019 JASON AL REGAN Ot R26.81 UNSTEADINESS ON FEET 06/02/2019 JASON AL REGAN Ot Z74.1 NEED FOR ASSISTANCE WITH PERSONAL CARE 06/03/2019 JASON AL REGAN Ot B37.2 CANDIDIASIS OF SKIN AND NAIL 06/03/2019 JASON AL REGAN Ot D64.9 ANEMIA, UNSPECIFIED 06/03/2019 JASON AL REGAN Ot E11.42 TYPE 2 DIABETES MELLITUS WITH DIABETIC P 06/03/2019 JASON AL REGAN Ot E11.62 1 TYPE 2 DIABETES MELLITUS WITH FOOT ULCER 06/03/2019 JASON AL REGAN Ot E83.51 HYPOCALCEMIA 06/03/2019 JASON AL REGAN Ot E86.0 DEHYDRATION 06/03/2019 JASON AL REGAN Ot F10.10 ALCOHOL ABUSE, UNCOMPLICATED 06/03/2019 JASON AL REGAN Ot F17.29 0 NICOTINE DEPENDENCE, OTHER TOBACCO PRODU 06/03/2019 JASON AL REGAN Ot F32.9 MAJOR DEPRESSIVE DISORDER, SINGLE EPISOD 06/03/2019 JASON AL REGAN Ot F41.9 ANXIETY DISORDER, UNSPECIFIED 06/03/2019 JASON AL REGAN Ot I11.0 HYPERTENSIVE HEART DISEASE WITH HEART FA 06/03/2019 JASON AL REGAN Ot I42.9 CARDIOMYOPATHY, UNSPECIFIED 06/03/2019 JASON AL REGAN Ot I48.91 UNSPECIFIED ATRIAL FIBRILLATION 06/03/2019 JASON AL REGAN Ot I50.9 HEART FAILURE, UNSPECIFIED 06/03/2019 JASON AL REGAN Ot K21.9 GASTRO-ESOPHAGEAL REFLUX DISEASE WITHOUT 06/03/2019 JASON AL REGAN Ot K75.9 INFLAMMATORY LIVER DISEASE, UNSPECIFIED 06/03/2019 JASON AL REGAN Ot L97.51 9 NON-PRS CHRONIC ULCER OTH PRT RIGHT FOOT 06/03/2019 JASON AL REGAN Ot M62.81 MUSCLE WEAKNESS (GENERALIZED) 06/03/2019 JASON AL REGAN Ot N48.89 OTHER SPECIFIED DISORDERS OF PENIS 06/03/2019 JASON AL REGAN Ot R26.81 UNSTEADINESS ON FEET 06/03/2019 JAOSN AL REGAN Ot Z74.1 NEED FOR ASSISTANCE WITH PERSONAL CARE 06/04/2019 JASON AL REGAN Ot B37.2 CANDIDIASIS OF SKIN AND NAIL 06/04/2019 JASON AL REGAN Ot D64.9 ANEMIA, UNSPECIFIED 06/04/2019 JASON AL, REGAN Ot E11.42 TYPE 2 DIABETES MELLITUS WITH DIABETIC P 06/04/2019 JASON AL REGAN Ot E11.62 1 TYPE 2 DIABETES MELLITUS WITH FOOT ULCER 06/04/2019 JASON AL REGAN Ot E83.51 HYPOCALCEMIA 06/04/2019 JASON AL REGAN Ot E86.0 DEHYDRATION 06/04/2019 JASON AL REGAN Ot F10.10 ALCOHOL ABUSE, UNCOMPLICATED 06/04/2019 JASON AL REGAN Ot F17.29 0 NICOTINE DEPENDENCE, OTHER TOBACCO PRODU 06/04/2019 JASON AL REGAN Ot F32.9 MAJOR DEPRESSIVE DISORDER, SINGLE EPISOD 06/04/2019 JASON AL REGAN Ot F41.9 ANXIETY DISORDER, UNSPECIFIED 06/04/2019 JASON AL REGAN Ot I11.0 HYPERTENSIVE HEART DISEASE WITH HEART FA 06/04/2019 JASON AL REGAN Ot I42.9 CARDIOMYOPATHY, UNSPECIFIED 06/04/2019 JASON AL REGAN Ot I48.91 UNSPECIFIED ATRIAL FIBRILLATION 06/04/2019 JASON AL REGAN Ot I50.9 HEART FAILURE, UNSPECIFIED 06/04/2019 JASON AL REGAN Ot K21.9 GASTRO-ESOPHAGEAL REFLUX DISEASE WITHOUT 06/04/2019 JASON AL REGAN Ot K75.9 INFLAMMATORY LIVER DISEASE, UNSPECIFIED 06/04/2019 JASON AL REGAN Ot L97.51 9 NON-PRS CHRONIC ULCER OTH PRT RIGHT FOOT 06/04/2019 JASON AL REGAN Ot M62.81 MUSCLE WEAKNESS (GENERALIZED) 06/04/2019 JASON AL REGAN Ot N48.89 OTHER SPECIFIED DISORDERS OF PENIS 06/04/2019 JASON AL REGAN Ot R26.81 UNSTEADINESS ON FEET 06/04/2019 JASON AL REGAN Ot Z74.1 NEED FOR ASSISTANCE WITH PERSONAL CARE 06/04/2019 JASON AL REGAN Ot B37.2 CANDIDIASIS OF SKIN AND NAIL 06/04/2019 GOMEZ DO, REGAN Ot D64.9 ANEMIA, UNSPECIFIED 06/04/2019 JASON AL, REGAN Ot E11.42 TYPE 2 DIABETES MELLITUS WITH DIABETIC P 06/04/2019 JASON AL REGAN Ot E11.62 1 TYPE 2 DIABETES MELLITUS WITH FOOT ULCER 06/04/2019 JASON AL REGAN Ot E83.51 HYPOCALCEMIA 06/04/2019 GOMEZ DO, REGAN Ot E86.0 DEHYDRATION 06/04/2019 JASON AL REGAN Ot E87.1 HYPO-OSMOLALITY AND HYPONATREMIA 06/04/2019 JASON AL REGAN Ot F10.10 ALCOHOL ABUSE, UNCOMPLICATED 06/04/2019 JASON AL, REGAN Ot F17.29 0 NICOTINE DEPENDENCE, OTHER TOBACCO PRODU 06/04/2019 JASON AL REGAN Ot F32.9 MAJOR DEPRESSIVE DISORDER, SINGLE EPISOD 06/04/2019 JASON AL REGAN Ot F41.9 ANXIETY DISORDER, UNSPECIFIED 06/04/2019 JASON AL REGAN Ot I11.0 HYPERTENSIVE HEART DISEASE WITH HEART FA 06/04/2019 JASON AL REGAN Ot I42.9 CARDIOMYOPATHY, UNSPECIFIED 06/04/2019 JASON AL REGAN Ot I48.91 UNSPECIFIED ATRIAL FIBRILLATION 06/04/2019 JASON AL REGAN Ot I50.9 HEART FAILURE, UNSPECIFIED 06/04/2019 JASON AL REGAN Ot K21.9 GASTRO-ESOPHAGEAL REFLUX DISEASE WITHOUT 06/04/2019 JASON AL REGAN Ot K75.9 INFLAMMATORY LIVER DISEASE, UNSPECIFIED 06/04/2019 JASON AL REGAN Ot L03.11 5 CELLULITIS OF RIGHT LOWER LIMB 06/04/2019 JASON AL REGAN Ot 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 06/04/2019 JASON AL REGAN Ot L97.51 9 NON-PRS CHRONIC ULCER OTH PRT RIGHT FOOT 06/04/2019 JASON AL REGAN Ot M62.81 MUSCLE WEAKNESS (GENERALIZED) 06/04/2019 JASON AL REGAN Ot N48.89 OTHER SPECIFIED DISORDERS OF PENIS 06/04/2019 JASON AL REGAN Ot R26.81 UNSTEADINESS ON FEET 06/04/2019 JASON AL REGAN Ot Z74.1 NEED FOR ASSISTANCE WITH PERSONAL CARE 06/05/2019 YAN, AMY E COLORED LEATHER SETTER Ot J18.9 PNEUMONIA, UNSPECIFIED ORGANISM 06/05/2019 AMY HEREDIA COLORED LEATHER SETTER Ot J44.9 CHRONIC OBSTRUCTIVE PULMONARY DISEASE, U 06/05/2019 AMY HEREDIA COLORED LEATHER SETTER Ot J90 PLEURAL EFFUSION, NOT ELSEWHERE CLASSIFI 06/05/2019 AMY HEREDIA COLORED LEATHER SETTER Ot J98.4 OTHER DISORDERS OF LUNG 06/05/2019 MALISSA GARRETT MD Ot E11.22 TYPE 2 DIABETES MELLITUS W DIABETIC CIVIL ENGINEERING PROFESSOR 06/05/2019 MALISSA GARRETT MD Ot N18.9 CHRONIC KIDNEY DISEASE, UNSPECIFIED 06/10/2019 ERAN BURTON MD, Ot E11.42 TYPE 2 DIABETES MELLITUS WITH DIABETIC P 06/10/2019 ERAN BURTON MD, Ot 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 PERIPHERAL AN 06/10/2019 ERAN BURTON MD, Ot E11.621 TYPE 2 DIABETES MELLITUS WITH FOOT ULCER 06/10/2019 ERAN BURTON MD, Ot I70.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 06/10/2019 ERAN BURTON MD, Ot I89 .0 LYMPHEDEMA, NOT ELSEWHERE CLASSIFIED 06/10/2019 ERAN BURTON MD, Ot L97.512 NON-PRS CHRONIC ULCER OTH PRT RIGHT FOOT 06/14/2019 ERAN BURTON MD, Ot E11.42 TYPE 2 DIABETES MELLITUS WITH DIABETIC P 06/14/2019 ERAN BURTON MD, Ot 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 PERIPHERAL AN 06/14/2019 ERAN BURTON MD, Ot E11.621 TYPE 2 DIABETES MELLITUS WITH FOOT ULCER 06/14/2019 ERAN BURTON MD Ot I70.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 06/14/2019 ERAN BURTON MD, Ot I89 .0 LYMPHEDEMA, NOT ELSEWHERE CLASSIFIED 06/14/2019 ERAN BURTON MD, Ot L97.512 NON-PRS CHRONIC ULCER OTH PRT RIGHT FOOT 06/18/2019 ERAN UBRTON MD, Ot E11.42 TYPE 2 DIABETES MELLITUS WITH DIABETIC P 06/18/2019 ERAN BURTON MD, Ot 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 PERIPHERAL AN 06/18/2019 ERAN BURTON MD, Ot E11.621 TYPE 2 DIABETES MELLITUS WITH FOOT ULCER 06/18/2019 ERAN BURTON MD Ot I70.235 ATHSCL ELIM IRA ARTERIES OF RIGHT LEG W UL 06/18/2019 ERAN BURTON MD Ot I89 .0 LYMPHEDEMA, NOT ELSEWHERE CLASSIFIED 06/18/2019 ERAN BURTON MD, Ot L97.512 NON-PRS CHRONIC ULCER OTH PRT RIGHT FOOT 06/26/2019 ERAN BURTON MD, Ot E11.42 TYPE 2 DIABETES MELLITUS WITH DIABETIC P 06/26/2019 ERAN BURTON MD Ot 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 PERIPHERAL AN 06/26/2019 ERAN BURTON MD, Ot E11.621 TYPE 2 DIABETES MELLITUS WITH FOOT ULCER 06/26/2019 ERAN BURTON MD, Ot I70.235 ATHSCL ELIM IRA ARTERIES OF RIGHT LEG W UL 06/26/2019 ERAN BURTON MD, Ot I89 .0 LYMPHEDEMA, NOT ELSEWHERE CLASSIFIED 06/26/2019 ERAN BURTON MD, Ot L97.512 NON-PRS CHRONIC ULCER OTH PRT RIGHT FOOT 07/02/2019 ERAN BURTON MD, Ot E11.42 TYPE 2 DIABETES MELLITUS WITH DIABETIC P 07/02/2019 ERAN BURTON MD, Ot 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 PERIPHERAL AN 07/02/2019 ERAN BURTON MD, Ot E11.621 TYPE 2 DIABETES MELLITUS WITH FOOT ULCER 07/02/2019 ERAN BURTON MD, Ot I70.235 ATHSCL ELIM IRA ARTERIES OF RIGHT LEG W UL 07/02/2019 ERAN BURTON MD, Ot I89 .0 LYMPHEDEMA, NOT ELSEWHERE CLASSIFIED 07/02/2019 ERAN BURTON MD, Ot L97.512 NON-PRS CHRONIC ULCER OTH PRT RIGHT FOOT 07/16/2019 ERAN BURTON MD, Ot E11.42 TYPE 2 DIABETES MELLITUS WITH DIABETIC P 07/16/2019 ERAN BURTON MD, Ot 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 PERIPHERAL AN 07/16/2019 ERAN BURTON MD, Ot E11.621 TYPE 2 DIABETES MELLITUS WITH FOOT ULCER 07/16/2019 ERAN BURTON MD, Ot I70.235 ATHSCL ELIM IRA ARTERIES OF RIGHT LEG W UL 07/16/2019 ERAN BURTON MD, Ot I89 .0 LYMPHEDEMA, NOT ELSEWHERE CLASSIFIED 07/16/2019 ERAN BURTON MD, Ot L97.512 NON-PRS CHRONIC ULCER OTH PRT RIGHT FOOT 07/20/2019 ERAN BURTON MD, Ot E11.42 TYPE 2 DIABETES MELLITUS WITH DIABETIC P 07/20/2019 ERAN BURTON MD Ot 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 PERIPHERAL AN 07/20/2019 ERAN BURTON MD, Ot E11.621 TYPE 2 DIABETES MELLITUS WITH FOOT ULCER 07/20/2019 ERAN BURTON MD, Ot I70.235 ATHSCL ELIM IRA ARTERIES OF RIGHT LEG W UL 07/20/2019 ERAN BURTON MD, Ot I89 .0 LYMPHEDEMA, NOT ELSEWHERE CLASSIFIED 07/20/2019 ERAN BURTON MD, Ot L97.512 NON-PRS CHRONIC ULCER OTH PRT RIGHT FOOT 08/24/2019 ERAN BURTON MD, Ot E11.42 TYPE 2 DIABETES MELLITUS WITH DIABETIC P 08/24/2019 ERAN BURTON MD, Ot 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 PERIPHERAL AN 08/24/2019 ERAN BURTON MD, Ot E11.621 TYPE 2 DIABETES MELLITUS WITH FOOT ULCER 08/24/2019 ERAN BURTON MD, Ot I70.235 ATHSCL ELIM IRA ARTERIES OF RIGHT LEG W UL 08/24/2019 ERAN BURTON MD, Ot I89 .0 LYMPHEDEMA, NOT ELSEWHERE CLASSIFIED 08/24/2019 ERAN BURTON MD, Ot L97.512 NON-PRS CHRONIC ULCER OTH PRT RIGHT FOOT 09/23/2019 ROVENSTINE DO, LUIS López Ot D64.9 ANEMIA, UNSPECIFIED 09/23/2019 ROVENSTINE DO, LUIS López Ot E08.621 DIABETES MELLITUS DUE TO UNDERLYING COND 09/23/2019 ROVENSTINE DO, LUIS López Ot F32.9 MAJOR DEPRESSIVE DISORDER, SINGLE EPISOD 09/23/2019 ROVENSTINE DO, LUIS López Ot F41.9 ANXIETY DISORDER, UNSPECIFIED 09/23/2019 ROVENSTINE DO, LUIS López Ot I11.0 HYPERTENSIVE HEART DISEASE WITH HEART FA 09/23/2019 ROVENSTINE DO, LUIS López Ot I48.91 UNSPECIFIED ATRIAL FIBRILLATION 09/23/2019 ROVENSTINE DO, LUIS López Ot I50.9 HEART FAILURE, UNSPECIFIED 09/23/2019 ROVENSTINE DO, LUIS López Ot K21.9 GASTRO-ESOPHAGEAL REFLUX DISEASE WITHOUT 09/23/2019 ROVENSTINE DO, LUIS López Ot L03.115 CELLULITIS OF RIGHT LOWER LIMB 09/23/2019 ROVENSTINE DO, LUIS López Ot L97.519 NON-PRS CHRONIC ULCER OTH PRT RIGHT FOOT 09/23/2019 ROVENSTINE DOLIUS Ot Z77.22 CNTCT W AND EXPSR TO ENVIRON TOBACCO SMO 09/23/2019 ROVENSTINE DOLUIS Ot Z79.01 CARE HOME (CURRENT) USE OF ANTICOAGULANT 09/23/2019 ROVENSTINE LUIS AL Ot 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 09/23/2019 ROVENSTINE DOLUIS Ot Z80.43 FAMILY HISTORY OF MALIGNANT NEOPLASM OF 09/26/2019 MALISSA GARRETT MD Ot 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 10/01/2019 AUSTEN DARBY MD, Ot E11.42 TYPE 2 DIABETES MELLITUS WITH DIABETIC P 10/01/2019 AUSTEN DARBY MD, Ot E11.610 TYPE 2 DIABETES MELLITUS W DIABETIC NEUR 10/01/2019 AUSTEN DARBY MD, Ot E11.621 TYPE 2 DIABETES MELLITUS WITH FOOT ULCER 10/01/2019 AUSTEN DARBY MD, Ot E11.69 TYPE 2 DIABETES MELLITUS WITH OTHER SPEC 10/01/2019 AUSTEN DARBY MD, Ot E87 .1 HYPO-OSMOLALITY AND HYPONATREMIA 10/01/2019 AUSTEN DARBY MD, Ot F17.290 NICOTINE DEPENDENCE, OTHER TOBACCO PRODU 10/01/2019 AUSTEN DARBY MD, Ot F32 .9 MAJOR DEPRESSIVE DISORDER, SINGLE EPISOD 10/01/2019 AUSTEN DARBY MD, Ot F41 .9 ANXIETY DISORDER, UNSPECIFIED 10/01/2019 AUSTEN DARBY MD, Ot I11 .0 HYPERTENSIVE HEART DISEASE WITH HEART FA 10/01/2019 AUSTEN DARBY MD, Ot I42 .9 CARDIOMYOPATHY, UNSPECIFIED 10/01/2019 AUSTEN DARBY MD, Ot I48.91 UNSPECIFIED ATRIAL FIBRILLATION 10/01/2019 AUSTEN DARBY MD, Ot I50 .9 HEART FAILURE, UNSPECIFIED 10/01/2019 AUSTEN DARBY MD, Ot I87 .2 VENOUS INSUFFICIENCY (CHRONIC) (PERIPHER 10/01/2019 AUSTEN DARBY MD Ot K21 .9 GASTRO-ESOPHAGEAL REFLUX DISEASE WITHOUT 10/01/2019 AUSTEN DARBY MD Ot K75 .9 INFLAMMATORY LIVER DISEASE, UNSPECIFIED 10/01/2019 AUSTEN DARBY MD, Ot L97.414 NON-PRS CHR ULCER OF RIGHT HEEL AND MIDF 10/01/2019 AUSTEN DARBY MD, Ot L97.514 NON-PRS CHRONIC ULCER OTH PRT RIGHT FOOT 10/01/2019 AUSTEN DARBY MD, Ot M86 .9 OSTEOMYELITIS, UNSPECIFIED 10/01/2019 AUSTEN DARBY MD, Ot R01 .1 CARDIAC MURMUR, UNSPECIFIED 10/01/2019 AUSTEN DARBY MD, Ot Z79.84 CARE HOME (CURRENT) USE OF ORAL HYPOGLYC 10/01/2019 AUSTEN DARBY MD, Ot Z87.440 PERSONAL HISTORY OF URINARY (TRACT) INFE Procedures There is no data. Results Test Result Range Gram stain microscopy - 10/25/17 13:40 GRAM STAIN RESULT FEW GRAM POSITIVE RODS NRG Bacteria identification in wound by cult ure - 10/25/17 13:40 Bacteria identification in wound by culture [id number] NRG FREE TEXT EXTERNAL SLOW GROWING NRG QUANTITY OF GROWTH Scant Growth NRG Capillary blood glucose measurement by g lucometer (mass/volume) - 12/20/17 08:15 Capillary blood glucose measurement by glucometer (mas s/volume) 130 mg/dL 70-110 Complete blood count (CBC) with automate d white blood cell (WBC) differential - 07/09/18 01:40 Blood leukocytes automated count (number/volume) 10.3 10*3/uL 4.3-11.0 Blood erythrocytes automated count (number/volume) 3.14 10*6/uL 4.35-5.85 Venous blood hemoglobin measurement (mass/volume) 10.5 g/dL 13.3-17.7 Blood hematocrit (volume fraction) 32 % 40-54 Automated erythrocyte mean corpuscular volume 101 [foz_us] 80-99 Automated erythrocyte mean corpuscular h emoglobin (mass per erythrocyte) 33 pg 25-34 Automated erythrocyte mean corpuscular h emoglobin concentration measurement (mass/volume) 33 g/dL 32-36 Automated erythrocyte distribution width ratio 17. 6 % 10.0- 14.5 Automated blood platelet count (count/volume) 365 10*3/uL 130-400 Automated blood platelet mean volume measurement 9.8 [foz_us] 7.4-10.4 Automated blood neutrophils/100 leukocytes 65 % 42-75 Automated blood lymphocytes/100 leukocytes 23 % 12-44 Blood monocytes/100 leukocytes 9 % 0-12 Automated blood eosinophils/100 leukocytes 2 % 0-10 Automated blood basophils/100 leukocytes 1 % 0-10 Blood neutrophils automated count (number/volume) 6.7 10*3 1.8-7.8 Blood lymphocytes automated count (number/volume) 2.4 10*3 1.0-4.0 Blood monocytes automated count (number/volume) 1. 0 10*3 0.0-1.0 Automated eosinophil count 0.2 10*3/uL 0 .0-0.3 Automated blood basophil count (count/volume) 0.1 10*3/uL 0.0-0.1 PT panel in platelet poor plasma by coag ulation assay - 07/09/18 01:40 Prothrombin time (PT) in platelet poor plasma by coagu lation assay 13.3 s 12.2-14.7 INR in platelet poor plasma or blood by coagulation as say 1.0 0.8-1.4 Activated partial thromboplastin time (a PTT) in platelet poor plasma bycoagulation assay - 07/09/18 01:40 Activated partial thromboplastin time (a PTT) in platelet poor plasma bycoagulation assay 35 s 24-35 Comprehensive metabolic panel - 07/09/18 01:40 Serum or plasma sodium measurement (moles/volume) 137 mmol/L 135-145 Serum or plasma potassium measurement (moles/volume) 4.4 mmol/L 3.6-5.0 Serum or plasma chloride measurement (moles/volume) 103 mmol/L 98-107 Carbon dioxide 25 mmol/L 21-32 Serum or plasma anion gap determination (moles/volume) 9 mmol/L 5-14 Serum or plasma urea nitrogen measurement (mass/volume ) 12 mg/dL 7-18 Serum or plasma creatinine measurement (mass/volume) 0.90 mg/dL 0.60-1.30 Serum or plasma urea nitrogen/creatinine mass ratio 13 NRG Serum or plasma creatinine measurement w ith calculation of estimated glomerular filtration rate > NRG Serum or plasma glucose measurement (mass/volume) 106 mg/dL 70-105 Serum or plasma calcium measurement (mass/volume) 8.9 mg/dL 8.5-10.1 Serum or plasma total bilirubin measurement (mass/volu me) 0.4 mg/dL 0.1-1.0 Serum or plasma alkaline phosphatase chucky surement (enzymatic activity/volume) 123 U/L 40-136 Serum or plasma aspartate aminotransfera se measurement (enzymatic activity/volume) 15 U/L 5-34 Serum or plasma alanine aminotransferase measurement (enzymatic activity/volume) 11 U/L 0-55 Serum or plasma protein measurement (mass/volume) 5.6 g/dL 6.4-8.2 Serum or plasma albumin measurement (mass/volume) 2.6 g/dL 3.2-4.5 CALCIUM CORRECTED 10.0 mg/dL 8.5-10.1 Serum or plasma lithium measurement (mol es/volume) - 07/09/18 01:40 BNP level 83.2 pg/mL <100.0 Influenza virus A and B antigen detectio n - 07/09/18 01:48 FLU RESULT NEGATIVE FOR INFLUENZA A AND B ANTIGENS BY IA NRG Blood lactic acid measurement (moles/vol ume) - 07/09/18 01:50 Blood lactic acid measurement (moles/volume) 1.00 mmol/L 0.50-2.00 Digoxin - 07/09/18 01:50 Digoxin 0.69 ng/mL 0.80-2.00 Bacterial blood culture - 07/09/18 01:50 Bacterial blood culture NG NRG Bacterial blood culture - 07/09/18 02:04 Bacterial blood culture NG NRG Complete urinalysis with reflex to cultu re - 07/09/18 02:20 Urine color determination YELLOW NRG Urine clarity determination CLEAR NR G Urine pH measurement by test strip 5 5-9 Specific gravity of urine by test strip 1.015 1.016-1.022 Urine protein assay by test strip, semi-quantitative NEGATIVE NEGATIVE Urine glucose detection by automated test strip NE GATIVE NEGATIVE Erythrocytes detection in urine sediment by light micr oscopy NEGATIVE NEGATIVE Urine ketones detection by automated test strip NE GATIVE NEGATIVE Urine nitrite detection by test strip NEGATIVE NEGATIVE Urine total bilirubin detection by test strip NEGA TIVE NEGATIVE Urine urobilinogen measurement by automated test strip (mass/volume) NORMAL NORMAL Urine leukocyte esterase detection by dipstick 1+ NEGATIVE Automated urine sediment erythrocyte cou nt by microscopy (number/high power field) RARE NRG Automated urine sediment leukocyte count by microscopy (number/high power field) RARE NRG Bacteria detection in urine sediment by light microsco py TRACE NRG Squamous epithelial cells detection in u rine sediment by light microscopy RARE NRG Crystals detection in urine sediment by light microsco py NONE NRG Casts detection in urine sediment by light microscopy PRESENT NRG Mucus detection in urine sediment by light microscopy MODERATE NRG Complete urinalysis with reflex to culture NO NRG Hyaline casts detection in urine sediment by light yossi roscopy 2-5 NRG Urine Legionella pneumophila antigen ass ay - 07/09/18 02:20 Urine Legionella pneumophila antigen assay Negativ e NRG Streptococcus pneumoniae antigen detecti on - 07/09/18 02:20 Streptococcus pneumoniae antigen detection Negativ e NRG Bacterial urine culture - 07/09/18 02:20 Bacterial urine culture NG NRG Methicillin resistant Staphylococcus aur eus (MRSA) screening culture - 07/09/18 04:35 Methicillin resistant Staphylococcus aureus (MRSA) scr eening culture NEG NRG Arterial blood gas measurement - 8 06:00 Blood pCO2 49 mm[Hg] 35-45 Blood pO2 46 mm[Hg] 79-93 Arterial blood bicarbonate measurement (moles/volume) 26 mmol/L 23-27 Arterial blood base excess by calculation 0.9 mmol /L -2.5-2.5 Arterial blood oxygen saturation measurement 79 % 94-100 * Inhaled oxygen flow rate 2L NRG Arterial blood pH measurement with patient temperature correction 7.34 7.37-7.43 Arterial blood carbon dioxide, total measurement (mole s/volume) 27.8 mmol/L 21.0-31.0 Body site L RAD NRG Assessment of wrist artery patency prior to arterial p uncture YES-POS NRG Setting of ventilation mode NO NR G Measurement of body temperature 97.0 NRG Capillary blood glucose measurement by g lucometer (mass/volume) - 07/09/18 06:00 Capillary blood glucose measurement by glucometer (mas s/volume) 107 mg/dL 70-110 Arterial blood gas measurement - 8 09:26 Blood pCO2 47 mm[Hg] 35-45 Blood pO2 280 mm[Hg] 79-93 Arterial blood bicarbonate measurement (moles/volume) 25 mmol/L 23-27 Arterial blood base excess by calculation -0.8 mmo l/L -2.5-2.5 Arterial blood oxygen saturation measurement 100 % 94-100 * Inhaled oxygen flow rate 15 NRG Arterial blood pH measurement with patient temperature correction 7.33 7.37-7.43 Arterial blood carbon dioxide, total measurement (mole s/volume) 26.1 mmol/L 21.0-31.0 Body site RT RAD NRG Assessment of wrist artery patency prior to arterial p uncture YES-POS NRG Setting of ventilation mode NO NR G Measurement of body temperature 96.9 NRG Whole blood basic metabolic panel - 06/26 12/11 09:49 Serum or plasma sodium measurement (moles/volume) 140 mmol/L 135-145 Serum or plasma potassium measurement (moles/volume) 3.4 mmol/L 3.6-5.0 Serum or plasma chloride measurement (moles/volume) 108 mmol/L 98-107 Carbon dioxide 25 mmol/L 21-32 Serum or plasma anion gap determination (moles/volume) 7 mmol/L 5-14 Serum or plasma urea nitrogen measurement (mass/volume ) 9 mg/dL 7-18 Serum or plasma creatinine measurement (mass/volume) 0.71 mg/dL 0.60-1.30 Serum or plasma urea nitrogen/creatinine mass ratio 13 NRG Serum or plasma creatinine measurement w ith calculation of estimated glomerular filtration rate > NRG Serum or plasma glucose measurement (mass/volume) 125 mg/dL 70-105 Serum or plasma calcium measurement (mass/volume) 8.2 mg/dL 8.5-10.1 Serum or plasma phosphate measurement (m ass/volume) - 07/09/18 09:49 Serum or plasma phosphate measurement (mass/volume) 4.3 mg/dL 2.3-4.7 Magnesium - 07/09/18 09:49 Magnesium 1.0 mg/dL 1.8-2.4 Serum or plasma troponin i.cardiac measu rement (mass/volume) - 07/09/18 09:49 Serum or plasma troponin i.cardiac measurement (mass/v olume) < ng/mL <0.30 Serum or plasma lithium measurement (mol es/volume) - 07/09/18 09:49 BNP level 123.9 pg/mL <100.0 Capillary blood glucose measurement by g lucometer (mass/volume) - 07/09/18 18:09 Capillary blood glucose measurement by glucometer (mas s/volume) 239 mg/dL 70-110 Whole blood basic metabolic panel - 06/26 12/11 19:13 Serum or plasma sodium measurement (moles/volume) 137 mmol/L 135-145 Serum or plasma potassium measurement (moles/volume) 4.1 mmol/L 3.6-5.0 Serum or plasma chloride measurement (moles/volume) 102 mmol/L 98-107 Carbon dioxide 26 mmol/L 21-32 Serum or plasma anion gap determination (moles/volume) 9 mmol/L 5-14 Serum or plasma urea nitrogen measurement (mass/volume ) 7 mg/dL 7-18 Serum or plasma creatinine measurement (mass/volume) 0.70 mg/dL 0.60-1.30 Serum or plasma urea nitrogen/creatinine mass ratio 10 NRG Serum or plasma creatinine measurement w ith calculation of estimated glomerular filtration rate > NRG Serum or plasma glucose measurement (mass/volume) 196 mg/dL 70-105 Serum or plasma calcium measurement (mass/volume) 8.9 mg/dL 8.5-10.1 Serum or plasma phosphate measurement (m ass/volume) - 07/09/18 19:13 Serum or plasma phosphate measurement (mass/volume) 3.9 mg/dL 2.3-4.7 Magnesium - 07/09/18 19:13 Magnesium 1.7 mg/dL 1.8-2.4 Complete blood count (CBC) with automate d white blood cell (WBC) differential - 07/10/18 03:25 Blood leukocytes automated count (number/volume) 6.4 10*3/uL 4.3-11.0 Blood erythrocytes automated count (number/volume) 3.43 10*6/uL 4.35-5.85 Venous blood hemoglobin measurement (mass/volume) 11.1 g/dL 13.3-17.7 Blood hematocrit (volume fraction) 34 % 40-54 Automated erythrocyte mean corpuscular volume 99 [ foz_us] 80-99 Automated erythrocyte mean corpuscular h emoglobin (mass per erythrocyte) 32 pg 25-34 Automated erythrocyte mean corpuscular h emoglobin concentration measurement (mass/volume) 33 g/dL 32-36 Automated erythrocyte distribution width ratio 16. 6 % 10.0- 14.5 Automated blood platelet count (count/volume) 355 10*3/uL 130-400 Automated blood platelet mean volume measurement 10.1 [foz_us] 7.4-10.4 Automated blood neutrophils/100 leukocytes 90 % 42-75 Automated blood lymphocytes/100 leukocytes 9 % 12-44 Blood monocytes/100 leukocytes 1 % 0-12 Automated blood eosinophils/100 leukocytes 0 % 0-10 Automated blood basophils/100 leukocytes 0 % 0-10 Blood neutrophils automated count (number/volume) 5.8 10*3 1.8-7.8 Blood lymphocytes automated count (number/volume) 0.6 10*3 1.0-4.0 Blood monocytes automated count (number/volume) 0. 1 10*3 0.0-1.0 Automated eosinophil count 0.0 10*3/uL 0 .0-0.3 Automated blood basophil count (count/volume) 0.0 10*3/uL 0.0-0.1 Whole blood basic metabolic panel - 06/26 01/10 03:25 Serum or plasma sodium measurement (moles/volume) 138 mmol/L 135-145 Serum or plasma potassium measurement (moles/volume) 3.7 mmol/L 3.6-5.0 Serum or plasma chloride measurement (moles/volume) 103 mmol/L 98-107 Carbon dioxide 24 mmol/L 21-32 Serum or plasma anion gap determination (moles/volume) 11 mmol/L 5-14 Serum or plasma urea nitrogen measurement (mass/volume ) 7 mg/dL 7-18 Serum or plasma creatinine measurement (mass/volume) 0.65 mg/dL 0.60-1.30 Serum or plasma urea nitrogen/creatinine mass ratio 11 NRG Serum or plasma creatinine measurement w ith calculation of estimated glomerular filtration rate > NRG Serum or plasma glucose measurement (mass/volume) 199 mg/dL 70-105 Serum or plasma calcium measurement (mass/volume) 8.8 mg/dL 8.5-10.1 Serum or plasma phosphate measurement (m ass/volume) - 07/10/18 03:25 Serum or plasma phosphate measurement (mass/volume) 3.3 mg/dL 2.3-4.7 Magnesium - 07/10/18 03:25 Magnesium 1.4 mg/dL 1.8-2.4 Blood manual differential performed dete ction - 07/10/18 03:25 Blood monocytes/100 leukocytes 4 % NRG Manual blood segmented neutrophils/100 leukocytes 92 % NRG Blood band neutrophils/100 leukocytes 0 % NRG Manual blood lymphocytes/100 leukocytes 4 % NRG Manual eosinophils/100 leukocytes in nose 0 % NRG Manual blood basophils/100 leukocytes 0 % NRG Blood anisocytosis detection by light microscopy S LIGHT NRG Blood hypochromia detection by light microscopy SL IGHT NRG Blood target cells detection by light microscopy S LIGHT NRG PT panel in platelet poor plasma by coag ulation assay - 07/10/18 03:25 Prothrombin time (PT) in platelet poor plasma by coagu lation assay 13.1 s 12.2-14.7 INR in platelet poor plasma or blood by coagulation as say 1.0 0.8-1.4 Serum or plasma troponin i.cardiac measu rement (mass/volume) - 07/10/18 09:30 Serum or plasma troponin i.cardiac measurement (mass/v olume) < ng/mL <0.30 Capillary blood glucose measurement by g lucometer (mass/volume) - 07/10/18 11:09 Capillary blood glucose measurement by glucometer (mas s/volume) 230 mg/dL 70-110 Capillary blood glucose measurement by g lucometer (mass/volume) - 07/10/18 18:08 Capillary blood glucose measurement by glucometer (mas s/volume) 202 mg/dL 70-110 Capillary blood glucose measurement by g lucometer (mass/volume) - 07/10/18 23:55 Capillary blood glucose measurement by glucometer (mas s/volume) 163 mg/dL 70-110 Complete blood count (CBC) with automate d white blood cell (WBC) differential - 07/11/18 04:05 Blood leukocytes automated count (number/volume) 8.8 10*3/uL 4.3-11.0 Blood erythrocytes automated count (number/volume) 3.20 10*6/uL 4.35-5.85 Venous blood hemoglobin measurement (mass/volume) 10.5 g/dL 13.3-17.7 Blood hematocrit (volume fraction) 32 % 40-54 Automated erythrocyte mean corpuscular volume 100 [foz_us] 80-99 Automated erythrocyte mean corpuscular h emoglobin (mass per erythrocyte) 33 pg 25-34 Automated erythrocyte mean corpuscular h emoglobin concentration measurement (mass/volume) 33 g/dL 32-36 Automated erythrocyte distribution width ratio 16. 7 % 10.0- 14.5 Automated blood platelet count (count/volume) 362 10*3/uL 130-400 Automated blood platelet mean volume measurement 10.4 [foz_us] 7.4-10.4 Automated blood neutrophils/100 leukocytes 71 % 42-75 Automated blood lymphocytes/100 leukocytes 21 % 12-44 Blood monocytes/100 leukocytes 7 % 0-12 Automated blood eosinophils/100 leukocytes 1 % 0-10 Automated blood basophils/100 leukocytes 0 % 0-10 Blood neutrophils automated count (number/volume) 6.3 10*3 1.8-7.8 Blood lymphocytes automated count (number/volume) 1.8 10*3 1.0-4.0 Blood monocytes automated count (number/volume) 0. 6 10*3 0.0-1.0 Automated eosinophil count 0.1 10*3/uL 0 .0-0.3 Automated blood basophil count (count/volume) 0.0 10*3/uL 0.0-0.1 Comprehensive metabolic panel - 07/11/18 04:05 Serum or plasma sodium measurement (moles/volume) 138 mmol/L 135-145 Serum or plasma potassium measurement (moles/volume) 3.4 mmol/L 3.6-5.0 Serum or plasma chloride measurement (moles/volume) 103 mmol/L 98-107 Carbon dioxide 26 mmol/L 21-32 Serum or plasma anion gap determination (moles/volume) 9 mmol/L 5-14 Serum or plasma urea nitrogen measurement (mass/volume ) 7 mg/dL 7-18 Serum or plasma creatinine measurement (mass/volume) 0.60 mg/dL 0.60-1.30 Serum or plasma urea nitrogen/creatinine mass ratio 12 NRG Serum or plasma creatinine measurement w ith calculation of estimated glomerular filtration rate > NRG Serum or plasma glucose measurement (mass/volume) 139 mg/dL 70-105 Serum or plasma calcium measurement (mass/volume) 9.2 mg/dL 8.5-10.1 Serum or plasma total bilirubin measurement (mass/volu me) 0.4 mg/dL 0.1-1.0 Serum or plasma alkaline phosphatase chucky surement (enzymatic activity/volume) 112 U/L 40-136 Serum or plasma aspartate aminotransfera se measurement (enzymatic activity/volume) 14 U/L 5-34 Serum or plasma alanine aminotransferase measurement (enzymatic activity/volume) 13 U/L 0-55 Serum or plasma protein measurement (mass/volume) 6.1 g/dL 6.4-8.2 Serum or plasma albumin measurement (mass/volume) 3.0 g/dL 3.2-4.5 CALCIUM CORRECTED 10.0 mg/dL 8.5-10.1 Serum or plasma phosphate measurement (m ass/volume) - 07/11/18 04:05 Serum or plasma phosphate measurement (mass/volume) 2.1 mg/dL 2.3-4.7 Magnesium - 07/11/18 04:05 Magnesium 1.4 mg/dL 1.8-2.4 PT panel in platelet poor plasma by coag ulation assay - 07/11/18 05:20 Prothrombin time (PT) in platelet poor plasma by coagu lation assay 13.3 s 12.2-14.7 INR in platelet poor plasma or blood by coagulation as say 1.0 0.8-1.4 Capillary blood glucose measurement by g lucometer (mass/volume) - 07/11/18 05:46 Capillary blood glucose measurement by glucometer (mas s/volume) 437 mg/dL 70-110 Capillary blood glucose measurement by g lucometer (mass/volume) - 07/11/18 06:11 Capillary blood glucose measurement by glucometer (mas s/volume) 106 mg/dL 70-110 Serum or plasma troponin i.cardiac measu rement (mass/volume) - 07/11/18 09:10 Serum or plasma troponin i.cardiac measurement (mass/v olume) < ng/mL <0.30 Capillary blood glucose measurement by g lucometer (mass/volume) - 07/11/18 13:51 Capillary blood glucose measurement by glucometer (mas s/volume) 198 mg/dL 70-110 Capillary blood glucose measurement by g lucometer (mass/volume) - 07/11/18 18:18 Capillary blood glucose measurement by glucometer (mas s/volume) 125 mg/dL 70-110 Complete blood count (CBC) with automate d white blood cell (WBC) differential - 12/03/18 18:00 Blood leukocytes automated count (number/volume) 7.7 10*3/uL 4.3-11.0 Blood erythrocytes automated count (number/volume) 4.73 10*6/uL 4.35-5.85 Venous blood hemoglobin measurement (mass/volume) 13.5 g/dL 13.3-17.7 Blood hematocrit (volume fraction) 39 % 40-54 Automated erythrocyte mean corpuscular volume 83 [ foz_us] 80-99 Automated erythrocyte mean corpuscular h emoglobin (mass per erythrocyte) 29 pg 25-34 Automated erythrocyte mean corpuscular h emoglobin concentration measurement (mass/volume) 34 g/dL 32-36 Automated erythrocyte distribution width ratio 16. 9 % 10.0- 14.5 Automated blood platelet count (count/volume) 206 10*3/uL 130-400 Automated blood platelet mean volume measurement 9.7 [foz_us] 7.4-10.4 Automated blood neutrophils/100 leukocytes 63 % 42-75 Automated blood lymphocytes/100 leukocytes 26 % 12-44 Blood monocytes/100 leukocytes 9 % 0-12 Automated blood eosinophils/100 leukocytes 2 % 0-10 Automated blood basophils/100 leukocytes 1 % 0-10 Blood neutrophils automated count (number/volume) 4.8 10*3 1.8-7.8 Blood lymphocytes automated count (number/volume) 2.0 10*3 1.0-4.0 Blood monocytes automated count (number/volume) 0. 7 10*3 0.0-1.0 Automated eosinophil count 0.1 10*3/uL 0 .0-0.3 Automated blood basophil count (count/volume) 0.1 10*3/uL 0.0-0.1 PT panel in platelet poor plasma by coag ulation assay - 12/03/18 18:00 Prothrombin time (PT) in platelet poor plasma by coagu lation assay 20.1 s 12.2-14.7 INR in platelet poor plasma or blood by coagulation as say 1.6 0.8-1.4 Comprehensive metabolic panel - 12/03/18 18:00 Serum or plasma sodium measurement (moles/volume) 130 mmol/L 135-145 Serum or plasma potassium measurement (moles/volume) 4.3 mmol/L 3.6-5.0 Serum or plasma chloride measurement (moles/volume) 91 mmol/L 98-107 Carbon dioxide 26 mmol/L 21-32 Serum or plasma anion gap determination (moles/volume) 13 mmol/L 5-14 Serum or plasma urea nitrogen measurement (mass/volume ) 7 mg/dL 7-18 Serum or plasma creatinine measurement (mass/volume) 0.57 mg/dL 0.60-1.30 Serum or plasma urea nitrogen/creatinine mass ratio 12 NRG Serum or plasma creatinine measurement w ith calculation of estimated glomerular filtration rate > NRG Serum or plasma glucose measurement (mass/volume) 130 mg/dL 70-105 Serum or plasma calcium measurement (mass/volume) 9.1 mg/dL 8.5-10.1 Serum or plasma total bilirubin measurement (mass/volu me) 1.0 mg/dL 0.1-1.0 Serum or plasma alkaline phosphatase chucky surement (enzymatic activity/volume) 103 U/L 40-136 Serum or plasma aspartate aminotransfera se measurement (enzymatic activity/volume) 17 U/L 5-34 Serum or plasma alanine aminotransferase measurement (enzymatic activity/volume) 8 U/L 0-55 Serum or plasma protein measurement (mass/volume) 7.0 g/dL 6.4-8.2 Serum or plasma albumin measurement (mass/volume) 4.2 g/dL 3.2-4.5 CALCIUM CORRECTED 8.9 mg/dL 8.5-10.1 Lipid 1996 panel - 12/03/18 18:00 Serum or plasma triglyceride measurement (mass/volume) 71 mg/dL <150 Serum or plasma cholesterol measurement (mass/volume) 156 mg/dL < 200 Serum or plasma cholesterol in HDL measurement (mass/v olume) 72 mg/dL 40-60 Cholesterol in LDL [mass/volume] in serum or plasma by direct assay 68 mg/dL 1-129 Serum or plasma cholesterol in VLDL measurement (mass/ volume) 14 mg/dL 5-40 Hemoglobin A1c - 12/03/18 18:00 Blood hemoglobin A1C measurement (mass/volume) 6.6 % 4.0-5.6 MEAN BLOOD GLUCOSE 143 % <=126 CMP - 03/31/19 14:16 GLUCOSE 126 mg/dL 65-99 UREA NITROGEN (BUN) 6 mg/dL 7-25 CREATININE 0.76 mg/dL 0.70-1.18 eGFR NON-AFR. FRENCH 91 mL/min/1.73m2 > OR = 60 eGFR 105 mL/min/1.73m2 > OR = 60 BUN/CREATININE RATIO 8 (calc) 6-22 SODIUM 135 mmol/L 135-146 POTASSIUM 5.0 mmol/L 3.5-5.3 CHLORIDE 98 mmol/L 98-110 CARBON DIOXIDE 26 mmol/L 20-32 CALCIUM 9.7 mg/dL 8.6-10.3 PROTEIN, TOTAL 6.6 g/dL 6.1-8.1 ALBUMIN 3.8 g/dL 3.6-5.1 GLOBULIN 2.8 g/dL (calc) 1.9-3.7 ALBUMIN/GLOBULIN RATIO 1.4 (calc) 1.0-2. 5 BILIRUBIN, TOTAL 0.6 mg/dL 0.2-1.2 ALKALINE PHOSPHATASE 87 U/L 40-115 AST 20 U/L 10-35 ALT 11 U/L 9-46 CBC - 03/31/19 14:16 WHITE BLOOD CELL COUNT 10.4 Thousand/uL 3.8-10.8 RED BLOOD CELL COUNT 3.94 Million/uL 4.2 0-5.80 HEMOGLOBIN 13.7 g/dL 13.2-17.1 HEMATOCRIT 40.2 % 38.5-50.0 MCV 102.0 fL 80.0-100.0 MCH 34.8 pg 27.0-33.0 MCHC 34.1 g/dL 32.0-36.0 RDW 13.8 % 11.0-15.0 PLATELET COUNT 257 Thousand/uL 140-400 MPV 10.3 fL 7.5-12.5 ABSOLUTE NEUTROPHILS 6521 cells/uL 1500- 7800 ABSOLUTE LYMPHOCYTES 2746 cells/uL 850-3 900 ABSOLUTE MONOCYTES 894 cells/uL 200-950 ABSOLUTE EOSINOPHILS 156 cells/uL 15-500 ABSOLUTE BASOPHILS 83 cells/uL 0-200 NEUTROPHILS 62.7 % NRG LYMPHOCYTES 26.4 % NRG MONOCYTES 8.6 % NRG EOSINOPHILS 1.5 % NRG BASOPHILS 0.8 % NRG A1C - 03/31/19 14:16 HEMOGLOBIN A1c 5.1 % of total Hgb <5.7 Comprehensive metabolic panel - 05/25/19 14:25 Serum or plasma sodium measurement (moles/volume) 125 mmol/L 135-145 Serum or plasma potassium measurement (moles/volume) 5.0 mmol/L 3.6-5.0 Serum or plasma chloride measurement (moles/volume) 88 mmol/L 98-107 Carbon dioxide 22 mmol/L 21-32 Serum or plasma anion gap determination (moles/volume) 15 mmol/L 5-14 Serum or plasma urea nitrogen measurement (mass/volume ) 11 mg/dL 7-18 Serum or plasma creatinine measurement (mass/volume) 0.80 mg/dL 0.60-1.30 Serum or plasma urea nitrogen/creatinine mass ratio 14 NRG Serum or plasma creatinine measurement w ith calculation of estimated glomerular filtration rate > NRG Serum or plasma glucose measurement (mass/volume) 154 mg/dL 70-105 Serum or plasma calcium measurement (mass/volume) 9.1 mg/dL 8.5-10.1 Serum or plasma total bilirubin measurement (mass/volu me) 0.4 mg/dL 0.1-1.0 Serum or plasma alkaline phosphatase chucky surement (enzymatic activity/volume) 153 U/L 40-136 Serum or plasma aspartate aminotransfera se measurement (enzymatic activity/volume) 40 U/L 5-34 Serum or plasma alanine aminotransferase measurement (enzymatic activity/volume) 22 U/L 0-55 Serum or plasma protein measurement (mass/volume) 6.2 g/dL 6.4-8.2 Serum or plasma albumin measurement (mass/volume) 3.3 g/dL 3.2-4.5 CALCIUM CORRECTED 9.7 mg/dL 8.5-10.1 Blood lactic acid measurement (moles/vol ume) - 05/25/19 14:25 Blood lactic acid measurement (moles/volume) 3.53 mmol/L 0.50-2.00 Complete blood count (CBC) with automate d white blood cell (WBC) differential - 05/25/19 14:25 Blood leukocytes automated count (number/volume) 12.7 10*3/uL 4.3-11.0 Blood erythrocytes automated count (number/volume) 3.43 10*6/uL 4.35-5.85 Venous blood hemoglobin measurement (mass/volume) 11.8 g/dL 13.3-17.7 Blood hematocrit (volume fraction) 34 % 40-54 Automated erythrocyte mean corpuscular volume 99 [ foz_us] 80-99 Automated erythrocyte mean corpuscular h emoglobin (mass per erythrocyte) 34 pg 25-34 Automated erythrocyte mean corpuscular h emoglobin concentration measurement (mass/volume) 35 g/dL 32-36 Automated erythrocyte distribution width ratio 12. 9 % 10.0- 14.5 Automated blood platelet count (count/volume) 308 10*3/uL 130-400 Automated blood platelet mean volume measurement 9.3 [foz_us] 7.4-10.4 Automated blood neutrophils/100 leukocytes 69 % 42-75 Automated blood lymphocytes/100 leukocytes 17 % 12-44 Blood monocytes/100 leukocytes 12 % 0-12 Automated blood eosinophils/100 leukocytes 1 % 0-10 Automated blood basophils/100 leukocytes 1 % 0-10 Blood neutrophils automated count (number/volume) 8.7 10*3 1.8-7.8 Blood lymphocytes automated count (number/volume) 2.1 10*3 1.0-4.0 Blood monocytes automated count (number/volume) 1. 5 10*3 0.0-1.0 Automated eosinophil count 0.2 10*3/uL 0 .0-0.3 Automated blood basophil count (count/volume) 0.1 10*3/uL 0.0-0.1 Erythrocyte sedimentation rate by gerardo gren method - 05/25/19 14:25 Erythrocyte sedimentation rate by westergren method 28 mm 0- 30 Serum or plasma C reactive protein measu rement (mass/volume) - 05/25/19 14:25 Serum or plasma C reactive protein measurement (mass/v olume) 2.04 mg/dL 0.00-0.50 [id number] - 05/25/19 14:25 [id number] 0.75 ng/mL 0.80-2.00 Bacterial blood culture - 05/25/19 14:25 Bacterial blood culture NG NRG Bacterial blood culture - 05/25/19 14:45 Bacterial blood culture NG NRG Serum or plasma ethanol measurement (mas s/volume) - 05/25/19 18:00 Serum or plasma ethanol measurement (mass/volume) 15 mg/dL <10 Serum or plasma lactate measurement (mol es/volume) - 05/25/19 18:39 Serum or plasma lactate measurement (moles/volume) 1.79 mmol/L 0.50-2.00 Complete blood count (CBC) with automate d white blood cell (WBC) differential - 05/26/19 05:30 Blood leukocytes automated count (number/volume) 7.9 10*3/uL 4.3-11.0 Blood erythrocytes automated count (number/volume) 3.45 10*6/uL 4.35-5.85 Venous blood hemoglobin measurement (mass/volume) 11.7 g/dL 13.3-17.7 Blood hematocrit (volume fraction) 34 % 40-54 Automated erythrocyte mean corpuscular volume 99 [ foz_us] 80-99 Automated erythrocyte mean corpuscular h emoglobin (mass per erythrocyte) 34 pg 25-34 Automated erythrocyte mean corpuscular h emoglobin concentration measurement (mass/volume) 34 g/dL 32-36 Automated erythrocyte distribution width ratio 13. 1 % 10.0- 14.5 Automated blood platelet count (count/volume) 258 10*3/uL 130-400 Automated blood platelet mean volume measurement 9.4 [foz_us] 7.4-10.4 Automated blood neutrophils/100 leukocytes 66 % 42-75 Automated blood lymphocytes/100 leukocytes 20 % 12-44 Blood monocytes/100 leukocytes 11 % 0-12 Automated blood eosinophils/100 leukocytes 3 % 0-10 Automated blood basophils/100 leukocytes 1 % 0-10 Blood neutrophils automated count (number/volume) 5.2 10*3 1.8-7.8 Blood lymphocytes automated count (number/volume) 1.6 10*3 1.0-4.0 Blood monocytes automated count (number/volume) 0. 9 10*3 0.0-1.0 Automated eosinophil count 0.2 10*3/uL 0 .0-0.3 Automated blood basophil count (count/volume) 0.0 10*3/uL 0.0-0.1 Comprehensive metabolic panel - 05/26/19 05:30 Serum or plasma sodium measurement (moles/volume) 132 mmol/L 135-145 Serum or plasma potassium measurement (moles/volume) 3.9 mmol/L 3.6-5.0 Serum or plasma chloride measurement (moles/volume) 97 mmol/L 98-107 Carbon dioxide 26 mmol/L 21-32 Serum or plasma anion gap determination (moles/volume) 9 mmol/L 5-14 Serum or plasma urea nitrogen measurement (mass/volume ) 9 mg/dL 7-18 Serum or plasma creatinine measurement (mass/volume) 0.78 mg/dL 0.60-1.30 Serum or plasma urea nitrogen/creatinine mass ratio 12 NRG Serum or plasma creatinine measurement w ith calculation of estimated glomerular filtration rate > NRG Serum or plasma glucose measurement (mass/volume) 158 mg/dL 70-105 Serum or plasma calcium measurement (mass/volume) 8.6 mg/dL 8.5-10.1 Serum or plasma total bilirubin measurement (mass/volu me) 0.6 mg/dL 0.1-1.0 Serum or plasma alkaline phosphatase chucky surement (enzymatic activity/volume) 151 U/L 40-136 Serum or plasma aspartate aminotransfera se measurement (enzymatic activity/volume) 35 U/L 5-34 Serum or plasma alanine aminotransferase measurement (enzymatic activity/volume) 25 U/L 0-55 Serum or plasma protein measurement (mass/volume) 5.6 g/dL 6.4-8.2 Serum or plasma albumin measurement (mass/volume) 3.0 g/dL 3.2-4.5 CALCIUM CORRECTED 9.4 mg/dL 8.5-10.1 Hemoglobin A1c measurement - 05/26/19 05 :30 Blood hemoglobin A1C measurement (mass/volume) 6.2 % 4.0-5.6 MEAN BLOOD GLUCOSE 131 % <=126 Capillary blood glucose measurement by g lucometer (mass/volume) - 05/26/19 11:13 Capillary blood glucose measurement by glucometer (mas s/volume) 212 mg/dL 70-110 Capillary blood glucose measurement by g lucometer (mass/volume) - 05/26/19 15:56 Capillary blood glucose measurement by glucometer (mas s/volume) 126 mg/dL 70-110 Capillary blood glucose measurement by g lucometer (mass/volume) - 05/26/19 22:00 Capillary blood glucose measurement by glucometer (mas s/volume) 157 mg/dL 70-110 Bacteria identification in isolate by an aerobe culture - 05/27/19 04:25 Bacteria identification in isolate by anaerobe culture NOANA NRG Gram stain microscopy - 05/27/19 04:25 Gram stain microscopy No bacteria seen NRG Bacteria identification in wound by cult ure - 05/27/19 04:25 Bacteria identification in wound by culture GRAM P OS M NRG FREE TEXT EXTERNAL METHICILLIN-RESISTANT STAPH AUU EUS NRG QUANTITY OF GROWTH SMALL AMOUNT NRG FREE TEXT ENTRY 2 SUSCEPTIBILITY REPORTED 05/30/19 14:25 NRG CALL POSITIVES (F1 HELP) PRECAUTIONS NR G PBP2 NOTE: RESISTANT ORGANISM/CONTACT NRG Dirithromycin susceptibility test by dis k diffusion - 05/27/19 04:25 Oxacillin susceptibility test by minimum inhibitory co ncentration > NRG Clindamycin susceptibility test by minimum inhibitory concentration <= NRG Erythromycin susceptibility test by minimum inhibitory concentration <= NRG Trimethoprim/sulfamethoxazole susceptibi lity test by minimum inhibitoryconcentration <= NRG Vancomycin susceptibility test by minimum inhibitory c oncentration 1 NRG Levofloxacin susceptibility test by minimum inhibitory concentration <= NRG Rifampin susceptibility test by minimum inhibitory con centration <= NRG Cefazolin susceptibility test by minimum inhibitory co ncentration > NRG Linezolid susceptibility test by minimum inhibitory co ncentration 2 NRG Penicillin G susceptibility test by minimum inhibitory concentration > NRG Moxifloxacin susceptibility test by minimum inhibitory concentration <= NRG Minocycline susc YOSSI <= NRG Capillary blood glucose measurement by g lucometer (mass/volume) - 05/27/19 05:44 Capillary blood glucose measurement by glucometer (mas s/volume) 136 mg/dL 70-110 Vancomycin trough - 05/27/19 07:10 Vancomycin trough 18.9 ug/mL 10.0-20.0 Whole blood basic metabolic panel - 10/14 07:10 Serum or plasma sodium measurement (moles/volume) 134 mmol/L 135-145 Serum or plasma potassium measurement (moles/volume) 3.9 mmol/L 3.6-5.0 Serum or plasma chloride measurement (moles/volume) 101 mmol/L 98-107 Carbon dioxide 25 mmol/L 21-32 Serum or plasma anion gap determination (moles/volume) 8 mmol/L 5-14 Serum or plasma urea nitrogen measurement (mass/volume ) 5 mg/dL 7-18 Serum or plasma creatinine measurement (mass/volume) 0.68 mg/dL 0.60-1.30 Serum or plasma urea nitrogen/creatinine mass ratio 7 NRG Serum or plasma creatinine measurement w ith calculation of estimated glomerular filtration rate > NRG Serum or plasma glucose measurement (mass/volume) 119 mg/dL 70-105 Serum or plasma calcium measurement (mass/volume) 8.7 mg/dL 8.5-10.1 Serum or plasma phosphate measurement (m ass/volume) - 05/27/19 07:10 Serum or plasma phosphate measurement (mass/volume) 2.7 mg/dL 2.3-4.7 Magnesium - 05/27/19 07:10 Magnesium 1.5 mg/dL 1.6-2.4 Capillary blood glucose measurement by g lucometer (mass/volume) - 05/27/19 10:59 Capillary blood glucose measurement by glucometer (mas s/volume) 148 mg/dL 70-110 Vancomycin trough - 05/27/19 11:04 Vancomycin trough 16.4 ug/mL 10.0-20.0 Complete blood count (CBC) with automate d white blood cell (WBC) differential - 06/01/19 17:24 Blood leukocytes automated count (number/volume) 12.9 10*3/uL 4.3-11.0 Blood erythrocytes automated count (number/volume) 3.62 10*6/uL 4.35-5.85 Venous blood hemoglobin measurement (mass/volume) 12.4 g/dL 13.3-17.7 Blood hematocrit (volume fraction) 35 % 40-54 Automated erythrocyte mean corpuscular volume 96 [ foz_us] 80-99 Automated erythrocyte mean corpuscular h emoglobin (mass per erythrocyte) 34 pg 25-34 Automated erythrocyte mean corpuscular h emoglobin concentration measurement (mass/volume) 36 g/dL 32-36 Automated erythrocyte distribution width ratio 13. 1 % 10.0- 14.5 Automated blood platelet count (count/volume) 297 10*3/uL 130-400 Automated blood platelet mean volume measurement 9.3 [foz_us] 7.4-10.4 Automated blood neutrophils/100 leukocytes 76 % 42-75 Automated blood lymphocytes/100 leukocytes 13 % 12-44 Blood monocytes/100 leukocytes 10 % 0-12 Automated blood eosinophils/100 leukocytes 1 % 0-10 Automated blood basophils/100 leukocytes 0 % 0-10 Blood neutrophils automated count (number/volume) 9.7 10*3 1.8-7.8 Blood lymphocytes automated count (number/volume) 1.7 10*3 1.0-4.0 Blood monocytes automated count (number/volume) 1. 3 10*3 0.0-1.0 Automated eosinophil count 0.2 10*3/uL 0 .0-0.3 Automated blood basophil count (count/volume) 0.0 10*3/uL 0.0-0.1 Comprehensive metabolic panel - 06/01/19 17:24 Serum or plasma sodium measurement (moles/volume) 133 mmol/L 135-145 Serum or plasma potassium measurement (moles/volume) 5.2 mmol/L 3.6-5.0 Serum or plasma chloride measurement (moles/volume) 97 mmol/L 98-107 Carbon dioxide 22 mmol/L 21-32 Serum or plasma anion gap determination (moles/volume) 14 mmol/L 5-14 Serum or plasma urea nitrogen measurement (mass/volume ) 6 mg/dL 7-18 Serum or plasma creatinine measurement (mass/volume) 0.68 mg/dL 0.60-1.30 Serum or plasma urea nitrogen/creatinine mass ratio 9 NRG Serum or plasma creatinine measurement w ith calculation of estimated glomerular filtration rate > NRG Serum or plasma glucose measurement (mass/volume) 153 mg/dL 70-105 Serum or plasma calcium measurement (mass/volume) 8.9 mg/dL 8.5-10.1 Serum or plasma total bilirubin measurement (mass/volu me) 0.4 mg/dL 0.1-1.0 Serum or plasma alkaline phosphatase chucky surement (enzymatic activity/volume) 183 U/L 40-136 Serum or plasma aspartate aminotransfera se measurement (enzymatic activity/volume) 30 U/L 5-34 Serum or plasma alanine aminotransferase measurement (enzymatic activity/volume) 26 U/L 0-55 Serum or plasma protein measurement (mass/volume) 6.5 g/dL 6.4-8.2 Serum or plasma albumin measurement (mass/volume) 3.2 g/dL 3.2-4.5 CALCIUM CORRECTED 9.5 mg/dL 8.5-10.1 PT panel in platelet poor plasma by coag ulation assay - 06/01/19 17:24 Prothrombin time (PT) in platelet poor plasma by coagu lation assay 26.7 s 12.2-14.7 INR in platelet poor plasma or blood by coagulation as say 2.3 0.8-1.4 Activated partial thromboplastin time (a PTT) in platelet poor plasma bycoagulation assay - 06/01/19 17:24 Activated partial thromboplastin time (a PTT) in platelet poor plasma bycoagulation assay 61 s 24-35 Magnesium - 06/01/19 17:24 Magnesium 1.4 mg/dL 1.6-2.4 Serum or plasma ethanol measurement (mas s/volume) - 06/01/19 17:24 Serum or plasma ethanol measurement (mass/volume) 13 mg/dL <10 Complete urinalysis with reflex to cultu re - 06/01/19 19:02 Urine color determination YELLOW NRG Urine clarity determination CLEAR NR G Urine pH measurement by test strip 6.5 5-9 Specific gravity of urine by test strip 1.010 1.016-1.022 Urine protein assay by test strip, semi-quantitative 1+ NEGATIVE Urine glucose detection by automated test strip NE GATIVE NEGATIVE Erythrocytes detection in urine sediment by light micr oscopy 1+ NEGATIVE Urine ketones detection by automated test strip NE GATIVE NEGATIVE Urine nitrite detection by test strip NEGATIVE NEGATIVE Urine total bilirubin detection by test strip NEGA TIVE NEGATIVE Urine urobilinogen measurement by automated test strip (mass/volume) NORMAL NORMAL Urine leukocyte esterase detection by dipstick 3+ NEGATIVE Automated urine sediment erythrocyte cou nt by microscopy (number/high power field) [HPF] NRG Automated urine sediment leukocyte count by microscopy (number/high power field) [HPF] NRG Bacteria detection in urine sediment by light microsco py TRACE NRG Squamous epithelial cells detection in u rine sediment by light microscopy 2-5 NRG Crystals detection in urine sediment by light microsco py NONE NRG Casts detection in urine sediment by light microscopy NONE NRG Mucus detection in urine sediment by light microscopy NEGATIVE NRG Complete urinalysis with reflex to culture NO NRG Yeast detection in urine sediment by light microscopy FEW NRG Capillary blood glucose measurement by g lucometer (mass/volume) - 06/02/19 05:26 Capillary blood glucose measurement by glucometer (mas s/volume) 139 mg/dL 70-110 Complete blood count (CBC) with automate d white blood cell (WBC) differential - 06/02/19 06:30 Blood leukocytes automated count (number/volume) 9.1 10*3/uL 4.3-11.0 Blood erythrocytes automated count (number/volume) 3.47 10*6/uL 4.35-5.85 Venous blood hemoglobin measurement (mass/volume) 11.7 g/dL 13.3-17.7 Blood hematocrit (volume fraction) 34 % 40-54 Automated erythrocyte mean corpuscular volume 97 [ foz_us] 80-99 Automated erythrocyte mean corpuscular h emoglobin (mass per erythrocyte) 34 pg 25-34 Automated erythrocyte mean corpuscular h emoglobin concentration measurement (mass/volume) 35 g/dL 32-36 Automated erythrocyte distribution width ratio 13. 2 % 10.0- 14.5 Automated blood platelet count (count/volume) 259 10*3/uL 130-400 Automated blood platelet mean volume measurement 9.3 [foz_us] 7.4-10.4 Automated blood neutrophils/100 leukocytes 73 % 42-75 Automated blood lymphocytes/100 leukocytes 17 % 12-44 Blood monocytes/100 leukocytes 9 % 0-12 Automated blood eosinophils/100 leukocytes 2 % 0-10 Automated blood basophils/100 leukocytes 0 % 0-10 Blood neutrophils automated count (number/volume) 6.6 10*3 1.8-7.8 Blood lymphocytes automated count (number/volume) 1.5 10*3 1.0-4.0 Blood monocytes automated count (number/volume) 0. 8 10*3 0.0-1.0 Automated eosinophil count 0.1 10*3/uL 0 .0-0.3 Automated blood basophil count (count/volume) 0.0 10*3/uL 0.0-0.1 Comprehensive metabolic panel - 06/02/19 06:30 Serum or plasma sodium measurement (moles/volume) 131 mmol/L 135-145 Serum or plasma potassium measurement (moles/volume) 4.4 mmol/L 3.6-5.0 Serum or plasma chloride measurement (moles/volume) 97 mmol/L 98-107 Carbon dioxide 24 mmol/L 21-32 Serum or plasma anion gap determination (moles/volume) 10 mmol/L 5-14 Serum or plasma urea nitrogen measurement (mass/volume ) 5 mg/dL 7-18 Serum or plasma creatinine measurement (mass/volume) 0.64 mg/dL 0.60-1.30 Serum or plasma urea nitrogen/creatinine mass ratio 8 NRG Serum or plasma creatinine measurement w ith calculation of estimated glomerular filtration rate > NRG Serum or plasma glucose measurement (mass/volume) 128 mg/dL 70-105 Serum or plasma calcium measurement (mass/volume) 8.3 mg/dL 8.5-10.1 Serum or plasma total bilirubin measurement (mass/volu me) 0.9 mg/dL 0.1-1.0 Serum or plasma alkaline phosphatase chucky surement (enzymatic activity/volume) 165 U/L 40-136 Serum or plasma aspartate aminotransfera se measurement (enzymatic activity/volume) 26 U/L 5-34 Serum or plasma alanine aminotransferase measurement (enzymatic activity/volume) 25 U/L 0-55 Serum or plasma protein measurement (mass/volume) 5.8 g/dL 6.4-8.2 Serum or plasma albumin measurement (mass/volume) 2.9 g/dL 3.2-4.5 CALCIUM CORRECTED 9.2 mg/dL 8.5-10.1 Capillary blood glucose measurement by g lucometer (mass/volume) - 06/02/19 10:31 Capillary blood glucose measurement by glucometer (mas s/volume) 170 mg/dL 70-110 Capillary blood glucose measurement by g lucometer (mass/volume) - 06/02/19 15:55 Capillary blood glucose measurement by glucometer (mas s/volume) 196 mg/dL 70-110 Capillary blood glucose measurement by g lucometer (mass/volume) - 06/02/19 21:04 Capillary blood glucose measurement by glucometer (mas s/volume) 196 mg/dL 70-110 Capillary blood glucose measurement by g lucometer (mass/volume) - 06/03/19 05:07 Capillary blood glucose measurement by glucometer (mas s/volume) 160 mg/dL 70-110 Complete blood count (CBC) with automate d white blood cell (WBC) differential - 06/03/19 06:25 Blood leukocytes automated count (number/volume) 8.7 10*3/uL 4.3-11.0 Blood erythrocytes automated count (number/volume) 3.69 10*6/uL 4.35-5.85 Venous blood hemoglobin measurement (mass/volume) 12.5 g/dL 13.3-17.7 Blood hematocrit (volume fraction) 37 % 40-54 Automated erythrocyte mean corpuscular volume 99 [ foz_us] 80-99 Automated erythrocyte mean corpuscular h emoglobin (mass per erythrocyte) 34 pg 25-34 Automated erythrocyte mean corpuscular h emoglobin concentration measurement (mass/volume) 34 g/dL 32-36 Automated erythrocyte distribution width ratio 13. 1 % 10.0- 14.5 Automated blood platelet count (count/volume) 229 10*3/uL 130-400 Automated blood platelet mean volume measurement 9.6 [foz_us] 7.4-10.4 Automated blood neutrophils/100 leukocytes 78 % 42-75 Automated blood lymphocytes/100 leukocytes 14 % 12-44 Blood monocytes/100 leukocytes 5 % 0-12 Automated blood eosinophils/100 leukocytes 3 % 0-10 Automated blood basophils/100 leukocytes 1 % 0-10 Blood neutrophils automated count (number/volume) 6.7 10*3 1.8-7.8 Blood lymphocytes automated count (number/volume) 1.2 10*3 1.0-4.0 Blood monocytes automated count (number/volume) 0. 5 10*3 0.0-1.0 Automated eosinophil count 0.2 10*3/uL 0 .0-0.3 Automated blood basophil count (count/volume) 0.1 10*3/uL 0.0-0.1 Comprehensive metabolic panel - 06/03/19 06:25 Serum or plasma sodium measurement (moles/volume) 133 mmol/L 135-145 Serum or plasma potassium measurement (moles/volume) 4.0 mmol/L 3.6-5.0 Serum or plasma chloride measurement (moles/volume) 101 mmol/L 98-107 Carbon dioxide 24 mmol/L 21-32 Serum or plasma anion gap determination (moles/volume) 8 mmol/L 5-14 Serum or plasma urea nitrogen measurement (mass/volume ) 4 mg/dL 7-18 Serum or plasma creatinine measurement (mass/volume) 0.60 mg/dL 0.60-1.30 Serum or plasma urea nitrogen/creatinine mass ratio 7 NRG Serum or plasma creatinine measurement w ith calculation of estimated glomerular filtration rate > NRG Serum or plasma glucose measurement (mass/volume) 151 mg/dL 70-105 Serum or plasma calcium measurement (mass/volume) 8.2 mg/dL 8.5-10.1 Serum or plasma total bilirubin measurement (mass/volu me) 1.0 mg/dL 0.1-1.0 Serum or plasma alkaline phosphatase chucky surement (enzymatic activity/volume) 170 U/L 40-136 Serum or plasma aspartate aminotransfera se measurement (enzymatic activity/volume) 39 U/L 5-34 Serum or plasma alanine aminotransferase measurement (enzymatic activity/volume) 26 U/L 0-55 Serum or plasma protein measurement (mass/volume) 6.1 g/dL 6.4-8.2 Serum or plasma albumin measurement (mass/volume) 3.0 g/dL 3.2-4.5 CALCIUM CORRECTED 9.0 mg/dL 8.5-10.1 Capillary blood glucose measurement by g lucometer (mass/volume) - 06/03/19 11:16 Capillary blood glucose measurement by glucometer (mas s/volume) 207 mg/dL 70-110 Capillary blood glucose measurement by g lucometer (mass/volume) - 06/03/19 16:13 Capillary blood glucose measurement by glucometer (mas s/volume) 167 mg/dL 70-110 Capillary blood glucose measurement by g lucometer (mass/volume) - 06/03/19 21:18 Capillary blood glucose measurement by glucometer (mas s/volume) 129 mg/dL 70-110 Complete blood count (CBC) with automate d white blood cell (WBC) differential - 06/04/19 05:40 Blood leukocytes automated count (number/volume) 8.5 10*3/uL 4.3-11.0 Blood erythrocytes automated count (number/volume) 3.54 10*6/uL 4.35-5.85 Venous blood hemoglobin measurement (mass/volume) 11.9 g/dL 13.3-17.7 Blood hematocrit (volume fraction) 35 % 40-54 Automated erythrocyte mean corpuscular volume 99 [ foz_us] 80-99 Automated erythrocyte mean corpuscular h emoglobin (mass per erythrocyte) 34 pg 25-34 Automated erythrocyte mean corpuscular h emoglobin concentration measurement (mass/volume) 34 g/dL 32-36 Automated erythrocyte distribution width ratio 13. 2 % 10.0- 14.5 Automated blood platelet count (count/volume) 262 10*3/uL 130-400 Automated blood platelet mean volume measurement 9.7 [foz_us] 7.4-10.4 Automated blood neutrophils/100 leukocytes 71 % 42-75 Automated blood lymphocytes/100 leukocytes 18 % 12-44 Blood monocytes/100 leukocytes 7 % 0-12 Automated blood eosinophils/100 leukocytes 3 % 0-10 Automated blood basophils/100 leukocytes 1 % 0-10 Blood neutrophils automated count (number/volume) 6.1 10*3 1.8-7.8 Blood lymphocytes automated count (number/volume) 1.6 10*3 1.0-4.0 Blood monocytes automated count (number/volume) 0. 6 10*3 0.0-1.0 Automated eosinophil count 0.2 10*3/uL 0 .0-0.3 Automated blood basophil count (count/volume) 0.0 10*3/uL 0.0-0.1 Comprehensive metabolic panel - 06/04/19 05:40 Serum or plasma sodium measurement (moles/volume) 131 mmol/L 135-145 Serum or plasma potassium measurement (moles/volume) 4.0 mmol/L 3.6-5.0 Serum or plasma chloride measurement (moles/volume) 100 mmol/L 98-107 Carbon dioxide 23 mmol/L 21-32 Serum or plasma anion gap determination (moles/volume) 8 mmol/L 5-14 Serum or plasma urea nitrogen measurement (mass/volume ) 3 mg/dL 7-18 Serum or plasma creatinine measurement (mass/volume) 0.58 mg/dL 0.60-1.30 Serum or plasma urea nitrogen/creatinine mass ratio 5 NRG Serum or plasma creatinine measurement w ith calculation of estimated glomerular filtration rate > NRG Serum or plasma glucose measurement (mass/volume) 108 mg/dL 70-105 Serum or plasma calcium measurement (mass/volume) 8.4 mg/dL 8.5-10.1 Serum or plasma total bilirubin measurement (mass/volu me) 1.1 mg/dL 0.1-1.0 Serum or plasma alkaline phosphatase chucky surement (enzymatic activity/volume) 164 U/L 40-136 Serum or plasma aspartate aminotransfera se measurement (enzymatic activity/volume) 45 U/L 5-34 Serum or plasma alanine aminotransferase measurement (enzymatic activity/volume) 27 U/L 0-55 Serum or plasma protein measurement (mass/volume) 6.2 g/dL 6.4-8.2 Serum or plasma albumin measurement (mass/volume) 3.0 g/dL 3.2-4.5 CALCIUM CORRECTED 9.2 mg/dL 8.5-10.1 Capillary blood glucose measurement by g lucometer (mass/volume) - 06/04/19 06:13 Capillary blood glucose measurement by glucometer (mas s/volume) 126 mg/dL 70-110 Capillary blood glucose measurement by g lucometer (mass/volume) - 06/04/19 11:12 Capillary blood glucose measurement by glucometer (mas s/volume) 176 mg/dL 70-110 CULTURE, ANAEROBIC AND AEROBIC - 0 14:28 CULTURE, ANAEROBIC BACTERIA W/GRAM STAIN SEE NOTE NRG CULTURE, AEROBIC BACTERIA SEE NOTE NRG Complete blood count (CBC) with automate d white blood cell (WBC) differential - 09/28/19 16:30 Blood leukocytes automated count (number/volume) 8.4 10*3/uL 4.3-11.0 Blood erythrocytes automated count (number/volume) 3.96 10*6/uL 4.35-5.85 Venous blood hemoglobin measurement (mass/volume) 12.5 g/dL 13.3-17.7 Blood hematocrit (volume fraction) 36 % 40-54 Automated erythrocyte mean corpuscular volume 91 [ foz_us] 80-99 Automated erythrocyte mean corpuscular h emoglobin (mass per erythrocyte) 32 pg 25-34 Automated erythrocyte mean corpuscular h emoglobin concentration measurement (mass/volume) 35 g/dL 32-36 Automated erythrocyte distribution width ratio 14. 3 % 10.0- 14.5 Automated blood platelet count (count/volume) 310 10*3/uL 130-400 Automated blood platelet mean volume measurement 8.8 [foz_us] 7.4-10.4 Automated blood neutrophils/100 leukocytes 64 % 42-75 Automated blood lymphocytes/100 leukocytes 23 % 12-44 Blood monocytes/100 leukocytes 11 % 0-12 Automated blood eosinophils/100 leukocytes 2 % 0-10 Automated blood basophils/100 leukocytes 1 % 0-10 Blood neutrophils automated count (number/volume) 5.4 10*3 1.8-7.8 Blood lymphocytes automated count (number/volume) 1.9 10*3 1.0-4.0 Blood monocytes automated count (number/volume) 0. 9 10*3 0.0-1.0 Automated eosinophil count 0.2 10*3/uL 0 .0-0.3 Automated blood basophil count (count/volume) 0.0 10*3/uL 0.0-0.1 Blood lactic acid measurement (moles/vol ume) - 09/28/19 16:30 Blood lactic acid measurement (moles/volume) 0.95 mmol/L 0.50-2.00 Comprehensive metabolic panel - 09/28/19 16:30 Serum or plasma sodium measurement (moles/volume) 125 mmol/L 135-145 Serum or plasma potassium measurement (moles/volume) 4.7 mmol/L 3.6-5.0 Serum or plasma chloride measurement (moles/volume) 93 mmol/L 98-107 Carbon dioxide 24 mmol/L 21-32 Serum or plasma anion gap determination (moles/volume) 8 mmol/L 5-14 Serum or plasma urea nitrogen measurement (mass/volume ) 5 mg/dL 7-18 Serum or plasma creatinine measurement (mass/volume) 0.66 mg/dL 0.60-1.30 Serum or plasma urea nitrogen/creatinine mass ratio 8 NRG Serum or plasma creatinine measurement w ith calculation of estimated glomerular filtration rate > NRG Serum or plasma glucose measurement (mass/volume) 118 mg/dL 70-105 Serum or plasma calcium measurement (mass/volume) 8.9 mg/dL 8.5-10.1 Serum or plasma total bilirubin measurement (mass/volu me) 0.7 mg/dL 0.1-1.0 Serum or plasma alkaline phosphatase chucky surement (enzymatic activity/volume) 197 U/L 40-136 Serum or plasma aspartate aminotransfera se measurement (enzymatic activity/volume) 14 U/L 5-34 Serum or plasma alanine aminotransferase measurement (enzymatic activity/volume) 11 U/L 0-55 Serum or plasma protein measurement (mass/volume) 7.1 g/dL 6.4-8.2 Serum or plasma albumin measurement (mass/volume) 2.9 g/dL 3.2-4.5 CALCIUM CORRECTED 9.8 mg/dL 8.5-10.1 PT panel in platelet poor plasma by coag ulation assay - 09/28/19 16:30 Prothrombin time (PT) in platelet poor plasma by coagu lation assay 29.3 s 12.2-14.7 INR in platelet poor plasma or blood by coagulation as say 2.6 0.8-1.4 Gram stain microscopy - 09/28/19 16:30 Gram stain microscopy Moderate Gram positive cocci in clusters NRG Bacteria identification in wound by cult ure - 09/28/19 16:30 Bacteria identification in wound by culture [id number] [facility] FREE TEXT EXTERNAL SUSCEPTIBILITY REPORTED 10/01 9:2 5 NRG QUANTITY OF GROWTH Rare NRG FREE TEXT ENTRY 2 PRESUMPTIVE MRSA; SCREENING AT NR FREE TEXT ENTRY 3 VCP 10/01/19 9:00. CALLED TO 4TH BUD NR PBP2 10/01/19 9:00 BY , WILL REPORT TO RN NR Bacterial blood culture - 09/28/19 16:30 Bacterial blood culture NG [facility] Dirithromycin susceptibility test by dis k diffusion - 09/28/19 16:30 Oxacillin susceptibility test by minimum inhibitory co ncentration > NRG Clindamycin susceptibility test by minimum inhibitory concentration <= NRG Erythromycin susceptibility test by minimum inhibitory concentration > NRG Trimethoprim/sulfamethoxazole susceptibi lity test by minimum inhibitoryconcentration <= NRG Vancomycin susceptibility test by minimum inhibitory c oncentration 1 NRG Levofloxacin susceptibility test by minimum inhibitory concentration 4 NRG Rifampin susceptibility test by minimum inhibitory con centration <= NRG Cefazolin susceptibility test by minimum inhibitory co ncentration > NRG Linezolid susceptibility test by minimum inhibitory co ncentration 2 NRG Penicillin G susceptibility test by minimum inhibitory concentration > NRG Moxifloxacin susceptibility test by minimum inhibitory concentration 1 NRG Minocycline susc YOSSI <= NRG Bacterial blood culture - 09/28/19 16:51 Bacterial blood culture NG NRG Capillary blood glucose measurement by g lucometer (mass/volume) - 09/28/19 21:26 Capillary blood glucose measurement by glucometer (mas s/volume) 153 mg/dL 70-110 Capillary blood glucose measurement by g lucometer (mass/volume) - 09/29/19 05:54 Capillary blood glucose measurement by glucometer (mas s/volume) 114 mg/dL 70-110 Complete blood count (CBC) with automate d white blood cell (WBC) differential - 09/29/19 06:21 Blood leukocytes automated count (number/volume) 7.6 10*3/uL 4.3-11.0 Blood erythrocytes automated count (number/volume) 3.62 10*6/uL 4.35-5.85 Venous blood hemoglobin measurement (mass/volume) 11.5 g/dL 13.3-17.7 Blood hematocrit (volume fraction) 33 % 40-54 Automated erythrocyte mean corpuscular volume 92 [ foz_us] 80-99 Automated erythrocyte mean corpuscular h emoglobin (mass per erythrocyte) 32 pg 25-34 Automated erythrocyte mean corpuscular h emoglobin concentration measurement (mass/volume) 34 g/dL 32-36 Automated erythrocyte distribution width ratio 14. 4 % 10.0- 14.5 Automated blood platelet count (count/volume) 285 10*3/uL 130-400 Automated blood platelet mean volume measurement 9.1 [foz_us] 7.4-10.4 Automated blood neutrophils/100 leukocytes 69 % 42-75 Automated blood lymphocytes/100 leukocytes 20 % 12-44 Blood monocytes/100 leukocytes 9 % 0-12 Automated blood eosinophils/100 leukocytes 2 % 0-10 Automated blood basophils/100 leukocytes 1 % 0-10 Blood neutrophils automated count (number/volume) 5.3 10*3 1.8-7.8 Blood lymphocytes automated count (number/volume) 1.5 10*3 1.0-4.0 Blood monocytes automated count (number/volume) 0. 7 10*3 0.0-1.0 Automated eosinophil count 0.2 10*3/uL 0 .0-0.3 Automated blood basophil count (count/volume) 0.0 10*3/uL 0.0-0.1 Comprehensive metabolic panel - 09/29/19 06:21 Serum or plasma sodium measurement (moles/volume) 128 mmol/L 135-145 Serum or plasma potassium measurement (moles/volume) 4.2 mmol/L 3.6-5.0 Serum or plasma chloride measurement (moles/volume) 99 mmol/L 98-107 Carbon dioxide 22 mmol/L 21-32 Serum or plasma anion gap determination (moles/volume) 7 mmol/L 5-14 Serum or plasma urea nitrogen measurement (mass/volume ) 5 mg/dL 7-18 Serum or plasma creatinine measurement (mass/volume) 0.63 mg/dL 0.60-1.30 Serum or plasma urea nitrogen/creatinine mass ratio 8 NRG Serum or plasma creatinine measurement w ith calculation of estimated glomerular filtration rate > NRG Serum or plasma glucose measurement (mass/volume) 103 mg/dL 70-105 Serum or plasma calcium measurement (mass/volume) 8.5 mg/dL 8.5-10.1 Serum or plasma total bilirubin measurement (mass/volu me) 0.7 mg/dL 0.1-1.0 Serum or plasma alkaline phosphatase chucky surement (enzymatic activity/volume) 161 U/L 40-136 Serum or plasma aspartate aminotransfera se measurement (enzymatic activity/volume) 16 U/L 5-34 Serum or plasma alanine aminotransferase measurement (enzymatic activity/volume) 10 U/L 0-55 Serum or plasma protein measurement (mass/volume) 6.3 g/dL 6.4-8.2 Serum or plasma albumin measurement (mass/volume) 2.6 g/dL 3.2-4.5 CALCIUM CORRECTED 9.6 mg/dL 8.5-10.1 [id number] - 09/29/19 06:21 [id number] 273 % 280-300 Capillary blood glucose measurement by g lucometer (mass/volume) - 09/29/19 11:16 Capillary blood glucose measurement by glucometer (mas s/volume) 117 mg/dL 70-110 Capillary blood glucose measurement by g lucometer (mass/volume) - 09/29/19 16:24 Capillary blood glucose measurement by glucometer (mas s/volume) 151 mg/dL 70-110 Urine osmolality - 09/29/19 19:00 Urine osmolality 390 % 250-1200 SODIUM URINE RANDOM - 09/29/19 19:00 [id number] 90 % NRG CHLORIDE URINE RANDOM - 09/29/19 19:00 U CHLORIDE 78 % NRG Capillary blood glucose measurement by g lucometer (mass/volume) - 09/29/19 20:25 Capillary blood glucose measurement by glucometer (mas s/volume) 190 mg/dL 70-110 Comprehensive metabolic panel - 09/30/19 06:25 Serum or plasma sodium measurement (moles/volume) 133 mmol/L 135-145 Serum or plasma potassium measurement (moles/volume) 3.9 mmol/L 3.6-5.0 Serum or plasma chloride measurement (moles/volume) 104 mmol/L 98-107 Carbon dioxide 23 mmol/L 21-32 Serum or plasma anion gap determination (moles/volume) 6 mmol/L 5-14 Serum or plasma urea nitrogen measurement (mass/volume ) 5 mg/dL 7-18 Serum or plasma creatinine measurement (mass/volume) 0.64 mg/dL 0.60-1.30 Serum or plasma urea nitrogen/creatinine mass ratio 8 NRG Serum or plasma creatinine measurement w ith calculation of estimated glomerular filtration rate > NRG Serum or plasma glucose measurement (mass/volume) 93 mg/dL 70-105 Serum or plasma calcium measurement (mass/volume) 8.4 mg/dL 8.5-10.1 Serum or plasma total bilirubin measurement (mass/volu me) 0.7 mg/dL 0.1-1.0 Serum or plasma alkaline phosphatase chucky surement (enzymatic activity/volume) 150 U/L 40-136 Serum or plasma aspartate aminotransfera se measurement (enzymatic activity/volume) 24 U/L 5-34 Serum or plasma alanine aminotransferase measurement (enzymatic activity/volume) 14 U/L 0-55 Serum or plasma protein measurement (mass/volume) 6.5 g/dL 6.4-8.2 Serum or plasma albumin measurement (mass/volume) 2.6 g/dL 3.2-4.5 CALCIUM CORRECTED 9.5 mg/dL 8.5-10.1 Vancomycin trough - 09/30/19 06:25 Vancomycin trough 23.6 ug/mL 10.0-20.0 Automated blood complete blood count (he mogram) panel - 09/30/19 06:25 Blood leukocytes automated count (number/volume) 7.5 10*3/uL 4.3-11.0 Blood erythrocytes automated count (number/volume) 3.64 10*6/uL 4.35-5.85 Venous blood hemoglobin measurement (mass/volume) 11.4 g/dL 13.3-17.7 Blood hematocrit (volume fraction) 34 % 40-54 Automated erythrocyte mean corpuscular volume 94 [ foz_us] 80-99 Automated erythrocyte mean corpuscular h emoglobin (mass per erythrocyte) 31 pg 25-34 Automated erythrocyte mean corpuscular h emoglobin concentration measurement (mass/volume) 33 g/dL 32-36 Automated erythrocyte distribution width ratio 14. 4 % 10.0- 14.5 Automated blood platelet count (count/volume) 228 10*3/uL 130-400 Automated blood platelet mean volume measurement 9.2 [foz_us] 7.4-10.4 Serum or plasma troponin i.cardiac measu rement (mass/volume) - 09/30/19 06:25 Serum or plasma troponin i.cardiac measurement (mass/v olume) < ng/mL <0.028 Serum or plasma lithium measurement (mol es/volume) - 09/30/19 06:25 BNP PT 636.9 pg/mL <100.0 Fibrin D-dimer FEU measurement in platel et poor plasma (mass/volume) - 09/30/19 06:25 Fibrin D-dimer FEU measurement in platelet poor plasma (mass/volume) 1.20 ug/mL 0.00-0.49 Arterial blood gas measurement - 0 09:37 Blood pCO2 38 mm[Hg] 35-45 Blood pO2 71 mm[Hg] 79-93 Arterial blood bicarbonate measurement (moles/volume) 24 mmol/L 23-27 Arterial blood base excess by calculation -0.5 mmo l/L -2.5-2.5 Arterial blood oxygen saturation measurement 94 % 94-100 * Inhaled oxygen flow rate 2 NRG Arterial blood pH measurement with patient temperature correction 7.41 7.37-7.43 Arterial blood carbon dioxide, total measurement (mole s/volume) 24.7 mmol/L 21.0-31.0 Body site RB NRG Assessment of wrist artery patency prior to arterial p uncture POSITIVE NRG Setting of ventilation mode NO NR G Measurement of body temperature 36.6 NRG Serum or plasma troponin i.cardiac measu rement (mass/volume) - 09/30/19 10:10 Serum or plasma troponin i.cardiac measurement (mass/v olume) < ng/mL <0.028 THYROID STIMULATING HORMONE - 09/30/19 1 0:10 THYROID STIMULATING HORMONE 3.14 u[iU]/mL 0.35-4.94 Capillary blood glucose measurement by g lucometer (mass/volume) - 09/30/19 11:12 Capillary blood glucose measurement by glucometer (mas s/volume) 106 mg/dL 70-110 Vancomycin trough - 09/30/19 14:03 Vancomycin trough 19.0 ug/mL 10.0-20.0 Capillary blood glucose measurement by g lucometer (mass/volume) - 09/30/19 16:03 Capillary blood glucose measurement by glucometer (mas s/volume) 103 mg/dL 70-110 Capillary blood glucose measurement by g lucometer (mass/volume) - 09/30/19 17:15 Capillary blood glucose measurement by glucometer (mas s/volume) 109 mg/dL 70-110 Capillary blood glucose measurement by g lucometer (mass/volume) - 09/30/19 21:02 Capillary blood glucose measurement by glucometer (mas s/volume) 188 mg/dL 70-110 Capillary blood glucose measurement by g lucometer (mass/volume) - 10/01/19 05:42 Capillary blood glucose measurement by glucometer (mas s/volume) 99 mg/dL 70-110 Automated blood complete blood count (he mogram) panel - 10/01/19 05:52 Blood leukocytes automated count (number/volume) 6.0 10*3/uL 4.3-11.0 Blood erythrocytes automated count (number/volume) 5.17 10*6/uL 4.35-5.85 Venous blood hemoglobin measurement (mass/volume) 15.9 g/dL 13.3-17.7 Blood hematocrit (volume fraction) 45 % 40-54 Automated erythrocyte mean corpuscular volume 88 [ foz_us] 80-99 Automated erythrocyte mean corpuscular h emoglobin (mass per erythrocyte) 31 pg 25-34 Automated erythrocyte mean corpuscular h emoglobin concentration measurement (mass/volume) 35 g/dL 32-36 Automated erythrocyte distribution width ratio 12. 8 % 10.0- 14.5 Automated blood platelet count (count/volume) 338 10*3/uL 130-400 Automated blood platelet mean volume measurement 10.0 [foz_us] 7.4-10.4 Whole blood basic metabolic panel - 02/12 05:52 Serum or plasma sodium measurement (moles/volume) 140 mmol/L 135-145 Serum or plasma potassium measurement (moles/volume) 5.0 mmol/L 3.6-5.0 Serum or plasma chloride measurement (moles/volume) 108 mmol/L 98-107 Carbon dioxide 26 mmol/L 21-32 Serum or plasma anion gap determination (moles/volume) 6 mmol/L 5-14 Serum or plasma urea nitrogen measurement (mass/volume ) 19 mg/dL 7-18 Serum or plasma creatinine measurement (mass/volume) 0.89 mg/dL 0.60-1.30 Serum or plasma urea nitrogen/creatinine mass ratio 21 NRG Serum or plasma creatinine measurement w ith calculation of estimated glomerular filtration rate > NRG Serum or plasma glucose measurement (mass/volume) 89 mg/dL 70-105 Serum or plasma calcium measurement (mass/volume) 9.8 mg/dL 8.5-10.1 Capillary blood glucose measurement by g lucometer (mass/volume) - 10/01/19 11:04 Capillary blood glucose measurement by glucometer (mas s/volume) 165 mg/dL 70-110 Capillary blood glucose measurement by g lucometer (mass/volume) - 10/01/19 17:13 Capillary blood glucose measurement by glucometer (mas s/volume) 180 mg/dL 70-110 Capillary blood glucose measurement by g lucometer (mass/volume) - 10/01/19 20:49 Capillary blood glucose measurement by glucometer (mas s/volume) 266 mg/dL 70-110 Capillary blood glucose measurement by g lucometer (mass/volume) - 10/02/19 05:11 Capillary blood glucose measurement by glucometer (mas s/volume) 104 mg/dL 70-110 Automated blood complete blood count (he mogram) panel - 10/02/19 05:20 Blood leukocytes automated count (number/volume) 8.4 10*3/uL 4.3-11.0 Blood erythrocytes automated count (number/volume) 2.98 10*6/uL 4.35-5.85 Venous blood hemoglobin measurement (mass/volume) 9.5 g/dL 13.3-17.7 Blood hematocrit (volume fraction) 29 % 40-54 Automated erythrocyte mean corpuscular volume 96 [ foz_us] 80-99 Automated erythrocyte mean corpuscular h emoglobin (mass per erythrocyte) 32 pg 25-34 Automated erythrocyte mean corpuscular h emoglobin concentration measurement (mass/volume) 33 g/dL 32-36 Automated erythrocyte distribution width ratio 14. 4 % 10.0- 14.5 Automated blood platelet count (count/volume) 198 10*3/uL 130-400 Automated blood platelet mean volume measurement 9.6 [foz_us] 7.4-10.4 Comprehensive metabolic panel - 10/02/19 05:20 Serum or plasma sodium measurement (moles/volume) 131 mmol/L 135-145 Serum or plasma potassium measurement (moles/volume) 3.9 mmol/L 3.6-5.0 Serum or plasma chloride measurement (moles/volume) 102 mmol/L 98-107 Carbon dioxide 22 mmol/L 21-32 Serum or plasma anion gap determination (moles/volume) 7 mmol/L 5-14 Serum or plasma urea nitrogen measurement (mass/volume ) 9 mg/dL 7-18 Serum or plasma creatinine measurement (mass/volume) 0.70 mg/dL 0.60-1.30 Serum or plasma urea nitrogen/creatinine mass ratio 13 NRG Serum or plasma creatinine measurement w ith calculation of estimated glomerular filtration rate > NRG Serum or plasma glucose measurement (mass/volume) 93 mg/dL 70-105 Serum or plasma calcium measurement (mass/volume) 8.0 mg/dL 8.5-10.1 Serum or plasma total bilirubin measurement (mass/volu me) 0.8 mg/dL 0.1-1.0 Serum or plasma alkaline phosphatase chucky surement (enzymatic activity/volume) 120 U/L 40-136 Serum or plasma aspartate aminotransfera se measurement (enzymatic activity/volume) 19 U/L 5-34 Serum or plasma alanine aminotransferase measurement (enzymatic activity/volume) 14 U/L 0-55 Serum or plasma protein measurement (mass/volume) 5.9 g/dL 6.4-8.2 Serum or plasma albumin measurement (mass/volume) 2.3 g/dL 3.2-4.5 CALCIUM CORRECTED 9.4 mg/dL 8.5-10.1 Capillary blood glucose measurement by g lucometer (mass/volume) - 10/02/19 11:40 Capillary blood glucose measurement by glucometer (mas s/volume) 144 mg/dL 70-110 Capillary blood glucose measurement by g lucometer (mass/volume) - 10/02/19 15:54 Capillary blood glucose measurement by glucometer (mas s/volume) 185 mg/dL 70-110 Encounters ACCT No. Visit Date/Time Discharge Status Pt. Type Provider Facility Loc./Unit Complaint [id number] 09/24/2019 13:15:00 09/24/2019 23:59: 59 C[facility] [id number] 09/24/2019 13:15:00 Document Registration [id number] 03/31/2019 13:45:00 Document Registration [id number] 09/28/2019 17:36:00 14:49:00 DIS Inpatient WILNER GILL, AUSTEN Joy [facility] 4TH OSTEOMYELITIS R FOOT, L OW NA [id number] 09/24/2019 14:24:00 23:59:59 CLS Outpatient MALISSA GARRETT MD [facility] RAD FS [id number] 09/21/2019 16:19:00 020 17:08:00 DIS Outpatient LUIS SHIN DO [facility] ER FS SWOLLEN LEG [id number] 07/14/2019 13:00:00 23:59:59 CLS Outpatient ERAN BURTON MD [facility] WOUNDCARE [id number] 06/30/2019 12:32:00 23:59:59 CLS Outpatient ERAN BURTON MD [facility] WOUNDCARE [id number] 06/23/2019 12:50:00 23:59:59 CLS Outpatient ERAN BURTON MD [facility] WOUNDCARE [id number] 06/16/2019 12:59:00 23:59:59 CLS Outpatient ERAN BURTON MD [facility] WOUNDCARE [id number] 06/08/2019 08:03:00 23:59:59 CLS Outpatient ERAN BURTON MD [facility] WOUNDCARE [id number] 06/01/2019 19:21:00 13:38:00 DIS Outpatient REGAN GOMEZ DO [facility] 4TH GENERALIZED WEAKNESS, W OUND RT FOOT [id number] 05/25/2019 18:30:00 13:19:00 DIS Outpatient ADITHYA SANDS MD [facility] 4TH DIABETIC FOOT INFECTION [id number] 12/03/2018 18:50:00 23:59:59 CLS Outpatient GERRY GILL, MALISSA Herrmann [facility] LAB FS ROUTINE LABS [id number] 09/22/2018 07:30:00 23:59:59 CLS Preadmit AMY HEREDIA APRN [facility] RAD ATELECTASIS [id number] 09/03/2018 17:45:00 23:59:59 CLS Outpatient AMY HEREDIA APRN [facility] RAD COPD [id number] 07/09/2018 03:27:00 22:00:00 DIS Inpatient REGAN GOMEZ DO, [facility] 4TH PNEUMONIA,HYPOXIA,HYPOT ENSION,AMS [id number] 12/20/2017 08:07:00 09:43:00 DIS Outpatient DARYN ADAMS MD [facility] SDC YAG LASER BOTH EYES [id number] 12/12/2017 05:35:00 16:00:00 DIS Outpatient DARYN ADAMS MD [facility] PREOP YAG BOTH EYES [id number] 10/25/2017 12:03:00 018 14:02:00 DIS Emergency REYES ESPINAL [facility] ER LUMP ON BACK OF NECK [id number] 10/02/2019 14:59:[address] Inpatient WILNER GILL, AUSTEN Joy [facility] 4TH SWB:OSTEOMYELITIS
--- OUTSIDE RECORDS SUMMARY | 2019-10-04 19:05 | XMS REPORT | Continuity of Care Document ---
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 12/23/2017 DARYN ADAMS MD, [...] JAUNDICE 12/23/2017 DARYN ADAMS MD Ot Z79.01 INTERMEDIATE (CURRENT) USE OF ANTICOAGULANT 12/23/2017 DARYN ADAMS MD Ot Z79.84 INTERMEDIATE (CURRENT) USE OF ORAL HYPOGLYC 12/23/2017 DARYN ADAMS MD Ot Z79.899 OTHER INTERMEDIATE (CURRENT) DRUG THERAPY 07/11/2018 GOMEZ DO REGAN [...] AL REGAN Ot Y92.19 3 BEDROOM IN [facility] RESIDENTIAL INSTITUTION A 07/11/2018 JASON AL REGAN Ot Z66 DO NOT RESUSCITATE 07/11/2018 JASON AL REGAN Ot Z79.01 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 (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) USE OF ANTICOAGULANT 07/11/2018 JASON AL REGAN Ot Z79.84 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 (CURRENT) USE OF ORAL HYPOGLYC 09/04/2018 AMY HEREDIA APRN Ot J18.9 PNEUMONIA, UNSPECIFIED ORGANISM 09/04/2018 AMY HEREDIA APRN Ot J44.9 CHRONIC OBSTRUCTIVE PULMONARY DISEASE, U 09/04/2018 AMY HEREDIA ART DEALER Ot J90 PLEURAL EFFUSION, NOT ELSEWHERE CLASSIFI 09/04/2018 AMY HEREDIA ART DEALER Ot J98.4 OTHER DISORDERS OF LUNG 09/09/2018 AMY HEREDIA ART DEALER Ot J18.9 PNEUMONIA, UNSPECIFIED ORGANISM 09/09/2018 AMY HEREDIA ART DEALER Ot J44.9 CHRONIC OBSTRUCTIVE PULMONARY DISEASE, U 09/09/2018 AMY HEREDIA ART DEALER Ot J90 PLEURAL EFFUSION, NOT ELSEWHERE CLASSIFI 09/09/2018 AMY HEREDIA ART DEALER Ot J98.4 OTHER DISORDERS OF LUNG 09/22/2018 AMY HEREDIA ART DEALER Ot J18.9 PNEUMONIA, UNSPECIFIED ORGANISM 09/22/2018 AMY HEREDIA ART DEALER Ot J44.9 CHRONIC OBSTRUCTIVE PULMONARY DISEASE, U 09/22/2018 AMY HEREDIA ART DEALER Ot J90 PLEURAL EFFUSION, NOT ELSEWHERE CLASSIFI 09/22/2018 AMY HEREDIA ART DEALER Ot J98.4 OTHER DISORDERS OF LUNG 12/09/2018 GERRY GILL, MALISSA K Ot 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 12/09/2018 TOMÁS GARRETT MDJ K Ot N18.9 CHRONIC KIDNEY DISEASE, UNSPECIFIED 12/22/2018 MINDY GARRETT MDKAJ K Ot 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9 CHRONIC OBSTRUCTIVE PULMONARY DISEASE, U 05/25/2019 AMY HEREDIA ART DEALER Ot J90 PLEURAL EFFUSION, NOT ELSEWHERE CLASSIFI 05/25/2019 AMY HEREDIA APRN Ot J98.4 OTHER DISORDERS OF LUNG 05/25/2019 MALISSA GARRETT MD Ot 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 84 INTERMEDIATE (CURRENT) USE OF ORAL HYPOGLYC 06/02/2019 GOMEZ [...] Ot K75.9 INFLAMMATORY LIVER DISEASE, UNSPECIFIED 06/02/2019 JASON DO REGAN Ot L97.51 9 NON-PRS CHRONIC [...] Ot I48.91 UNSPECIFIED ATRIAL FIBRILLATION 06/03/2019 JASON LA REGAN Ot I50.9 HEART FAILURE, UNSPECIFIED 06/03/2019 [...] REGAN Ot R26.81 UNSTEADINESS ON FEET 06/03/2019 JASON AL REGAN Ot Z74.1 NEED FOR [...] WITH PERSONAL CARE 06/05/2019 YAN, AMY E ART DEALER Ot J18.9 PNEUMONIA, UNSPECIFIED ORGANISM 06/05/2019 AMY HEREDIA ART DEALER Ot J44.9 CHRONIC OBSTRUCTIVE PULMONARY DISEASE, U 06/05/2019 AMY HEREDIA ART DEALER Ot J90 PLEURAL EFFUSION, NOT ELSEWHERE CLASSIFI 06/05/2019 AMY HEREDIA ART DEALER Ot J98.4 OTHER DISORDERS OF LUNG 06/05/2019 MALISSA GARRETT MD Ot 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 06/05/2019 MALISSA GARRETT MD Ot N18.9 CHRONIC KIDNEY DISEASE, UNSPECIFIED 06/10/2019 ERAN BURTON MD, Ot E11.42 TYPE 2 DIABETES MELLITUS WITH DIABETIC P 06/10/2019 ERAN BURTON MD, Ot 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 PERIPHERAL AN 06/10/2019 ERAN BURTON MD, Ot E11.621 TYPE 2 DIABETES MELLITUS WITH FOOT ULCER 06/10/2019 ERAN BURTON MD, Ot I70.261 ATHSCL [place] ARTERIES OF EXTREMITIES W 06/10/2019 ERAN BURTON [...] 06/14/2019 ERAN BURTON MD Ot I70.261 ATHSCL [place]HE ARTERIES OF EXTREMITIES W 06/14/2019 ERAN BURTON MD, Ot I89 .0 LYMPHEDEMA, NOT ELSEWHERE CLASSIFIED 06/14/2019 ERAN BURTON MD, Ot L97.512 NON-PRS CHRONIC ULCER OTH PRT RIGHT FOOT 06/18/2019 ERAN BURTON MD, Ot E11.42 TYPE 2 DIABETES MELLITUS WITH DIABETIC P 06/18/2019 ERAN BURTON MD, Ot 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 PERIPHERAL AN 06/18/2019 ERAN BURTON MD, Ot E11.621 TYPE 2 DIABETES MELLITUS WITH FOOT ULCER 06/18/2019 ERAN BURTON MD Ot I70.235 ATHSCL [place] ARTERIES OF RIGHT LEG W UL 06/18/2019 [...] 06/26/2019 ERAN BURTON MD, Ot I70.235 ATHSCL [place]HE ARTERIES OF RIGHT LEG W UL 06/26/2019 REAN BUTRON MD, Ot I89 .0 LYMPHEDEMA, NOT ELSEWHERE [...] 07/02/2019 ERAN BURTON MD, Ot I70.235 ATHSCL [place] ARTERIES OF RIGHT LEG W UL 07/02/2019 [...] 07/16/2019 ERAN BURTON MD, Ot I70.235 ATHSCL [place] ARTERIES OF RIGHT LEG W UL 07/16/2019 [...] 07/20/2019 ERAN BURTON MD, Ot I70.235 ATHSCL [place]HE ARTERIES OF RIGHT LEG W UL 07/20/2019 [...] 08/24/2019 ERAN BURTON MD, Ot I70.235 ATHSCL [place] ARTERIES OF RIGHT LEG W UL 08/24/2019 ERAN BURTON MD, Ot I89 .0 LYMPHEDEMA, NOT ELSEWHERE CLASSIFIED 08/24/2019 ERAN BURTON MD, Ot L97.512 NON-PRS CHRONIC ULCER OTH PRT RIGHT FOOT 09/23/2019 ROVENSTINE DO, LUIS Lópze Ot D64.9 ANEMIA, UNSPECIFIED 09/23/2019 ROVENSTINE DO, [...] ULCER OTH PRT RIGHT FOOT 09/23/2019 ROVENSTINE DOLUIS Ot Z77.22 CNTCT W AND EXPSR TO ENVIRON TOBACCO SMO 09/23/2019 ROVENSTINE DOLUIS Ot Z79.01 INTERMEDIATE (CURRENT) USE OF ANTICOAGULANT 09/23/2019 ROVENSTINE LUIS AL Ot Z79.4 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 Results Test Result Range Gram stain microscopy - 10/25/17 13:40 GRAM STAIN RESULT FEW GRAM POSITIVE RODS NRG Bacteria identification in wound by cult ure - 10/25/17 13:40 Bacteria identification in wound by culture [id number] NRG FREE TEXT EXTERNAL SLOW GROWING [...] 7-25 CREATININE 0.76 mg/dL 0.70-1.18 eGFR NON-AFR. [place]UDI ARAB[place] 91 mL/min/1.73m2 > OR = 60 eGFR [...] protein measurement (mass/v olume) 2.04 mg/dL 0.00-0.50 [id number] - 05/25/19 14:25 [id number] 0.75 ng/mL 0.80-2.00 Bacterial blood culture - [...] 16:30 Bacteria identification in wound by culture [id number] [facility] FREE TEXT EXTERNAL SUSCEPTIBILITY REPORTED 10/01 9:2 5 NRG QUANTITY OF GROWTH Rare NRG FREE TEXT ENTRY 2 PRESUMPTIVE MRSA; SCREENING AT NR FREE TEXT ENTRY 3 VCP 10/01/19 9:00. CALLED TO 4TH BUD NR PBP2 10/01/19 9:00 BY , WILL REPORT TO RN NR Bacterial blood culture - 09/28/19 16:30 Bacterial blood culture NG [facility] Dirithromycin susceptibility test by dis k diffusion [...] g/dL 3.2-4.5 CALCIUM CORRECTED 9.6 mg/dL 8.5-10.1 [id number] - 09/29/19 06:21 [id number] 273 % 280-300 Capillary blood glucose measurement by g lucometer (mass/volume) - 09/29/19 11:16 Capillary blood glucose measurement by glucometer (mas s/volume) 117 mg/dL 70-110 Capillary blood glucose measurement by g lucometer (mass/volume) - 09/29/19 16:24 Capillary blood glucose measurement by glucometer (mas s/volume) 151 mg/dL 70-110 Urine osmolality - 09/29/19 19:00 Urine osmolality 390 % 250-1200 SODIUM URINE RANDOM - 09/29/19 19:00 [id number] 90 % NRG CHLORIDE URINE RANDOM - [...] Status Pt. Type Provider Facility Loc./Unit Complaint [id number] 09/24/2019 13:15:00 09/24/2019 23:59: 59 [facility] [id number] 09/24/2019 13:15:00 Document Registration [id number] 03/31/2019 13:45:00 Document Registration [id number] 09/28/2019 17:36:00 14:49:00 DIS Inpatient WILNER GILL, AUSTEN Joy [facility] 4TH OSTEOMYELITIS R FOOT, L OW NA [id number] 09/24/2019 14:24:00 23:59:59 CLS Outpatient MALISSA GARRETT MD [facility] RAD FS I83.029 [id number] 09/21/2019 16:19:00 020 17:08:00 DIS Outpatient LUIS SHIN DO [facility] ER FS SWOLLEN LEG [id number] 07/14/2019 13:00:00 23:59:59 CLS Outpatient ERAN BURTON MD [facility] WOUNDCARE [id number] 06/30/2019 12:32:00 23:59:59 CLS Outpatient ERAN BURTON MD [facility] WOUNDCARE [id number] 06/23/2019 12:50:00 23:59:59 CLS Outpatient ERAN BURTON MD [facility] WOUNDCARE [id number] 06/16/2019 12:59:00 23:59:59 CLS Outpatient ERAN BURTON MD [facility] WOUNDCARE [id number] 06/08/2019 08:03:00 23:59:59 CLS Outpatient ERAN BURTON MD [facility] WOUNDCARE [id number] 06/01/2019 19:21:00 13:38:00 DIS Outpatient REGAN GOMEZ DO [facility] 4TH GENERALIZED WEAKNESS, W OUND RT FOOT [id number] 05/25/2019 18:30:00 13:19:00 DIS Outpatient ADITHYA SANDS MD [facility] 4TH DIABETIC FOOT INFECTION [id number] 12/03/2018 18:50:00 23:59:59 CLS Outpatient GERRY GILL, MALISSA Herrmann [facility] LAB FS ROUTINE LABS [id number] 09/22/2018 07:30:00 23:59:59 CLS Preadmit AMY HEREDIA APRN [facility] RAD ATELECTASIS [id number] 09/03/2018 17:45:00 23:59:59 CLS Outpatient AMY HEREDIA APRN [facility] RAD COPD [id number] 07/09/2018 03:27:00 22:00:00 DIS Inpatient REGAN GOMEZ DO, V [facility] 4TH PNEUMONIA,HYPOXIA,HYPOT ENSION,AMS [id number] 12/20/2017 08:07:00 09:43:00 DIS Outpatient DARYN ADAMS MD [facility] SDC YAG LASER BOTH EYES [id number] 12/12/2017 05:35:00 16:00:00 DIS Outpatient DARYN ADAMS MD [facility] PREOP YAG BOTH EYES [id number] 10/25/2017 12:03:00 018 14:02:00 DIS Emergency REYES ESPINAL [facility] ER LUMP ON BACK OF NECK [id number] 10/02/2019 14:59:[address] Inpatient WILNER GILL, AUSTEN Joy [facility] 4TH SWB:OSTEOMYELITIS
[2019-10-06] MEDS ORDERED: MIRT-47 PO (11:24)
[2019-10-06] MEDS ORDERED: FOLI1TAB24 PO (11:24)
[2019-10-06] MEDS ORDERED: [UNRECOGNIZED DRUG - CODE] IV (11:24)
[2019-10-06] MEDS ORDERED: ACHD5005 PO (11:24)
[2019-10-06] MEDS ORDERED: NYST15CR TP (11:24)
[2019-10-06] MEDS ORDERED: DOCU-244 PO (11:24)
== END 2019-10-02 14:49 | disposition swing bed (61) | DRG 617 ==
LOC: EDUNIT# 14:56 → ER 14:57 → 4TH 17:36
PROVIDERS: ADMIT Family Medicine; ATTEND Family Medicine
PROC: 0Y6N0ZF Detachment at Left Foot, Partial 5th Ray, Open Approach (ICD-10-PCS; principal; 2019-09-30 14:20)
DX: E11.69 Type 2 diabetes mellitus with other specified complication (principal); M86.8X7 Other osteomyelitis, ankle and foot; L97.414 Non-pressure chronic ulcer of right heel and midfoot with necrosis of bone; E87.1 Hypo-osmolality and hyponatremia; I42.9 Cardiomyopathy, unspecified; I50.32 Chronic diastolic (congestive) heart failure; E11.621 Type 2 diabetes mellitus with foot ulcer; L97.514 Non-pressure chronic ulcer of other part of right foot with necrosis of bone; E11.610 Type 2 diabetes mellitus with diabetic neuropathic arthropathy; E11.42 Type 2 diabetes mellitus with diabetic polyneuropathy; I87.2 Venous insufficiency (chronic) (peripheral); R01.1 Cardiac murmur, unspecified; F17.290 Nicotine dependence, other tobacco product, uncomplicated; I11.0 Hypertensive heart disease with heart failure; I48.0 Paroxysmal atrial fibrillation; K75.9 Inflammatory liver disease, unspecified; J44.9 Chronic obstructive pulmonary disease, unspecified; K21.9 Gastro-esophageal reflux disease without esophagitis; F41.9 Anxiety disorder, unspecified; F32.9 Major depressive disorder, single episode, unspecified; Z79.84 Long term (current) use of oral hypoglycemic drugs; Z87.440 Personal history of urinary (tract) infections
CPT/HCPCS: 36415; 36600; 71046; 71275; 73630; 80048; 80053; 80202; 82436; 82805; 82962; 83605; 83880; 83930; 83935; 84300; 84443; 84484; 85025; 85027; 85379; 85610; 87040; 87070; 87077; 87186; 87205; 93005; 93306; 94760; 96365; 96367

== ENCOUNTER 2019-10-02 14:32 | Inpatient (IN) | payer MEDICARE ==
[~2019-10-02] VITALS: Ht 187 cm; Wt 99.8 kg
--- NOTE | 2019-10-02 14:38 | NUR ---
Swing Bed Note: Qualifies for swing bed for continued need of IV abx et continued wound care (Osteomyelitis) Anticipate admission to swing bed today 10/02/18. Thank you for this referral!
--- NOTE | 2019-10-02 14:38 | NUR ---
Admission Drug Regimen Review: Date: 10/02/19 Time: 1439 Review Completed, No Issues found
[2019-10-02] MEDS ORDERED: ONDANSETRON 4 MG (ZOFRAN) ORAL DISSOLVE TAB SL PRN (15:00)
[2019-10-02] MEDS ORDERED: ONDANSETRON 4 MG/2 ML (SDV) Z0FRAN IVP PRN ×2 (15:00→15:30)
[2019-10-02] MEDS ORDERED: ANTACID SUSP 30 ML UDC (MYLANTA) PO PRN (15:00)
[2019-10-02] MEDS ORDERED: LIDOCAINE/EPI 1%-1:100,000 (XYLOCAINE) 20ML ONE (15:00)
[2019-10-02] MEDS ORDERED: SENNA W/DOCUSATE (SENOKOT S) TABLET PO PRN (15:00)
--- NOTE | 2019-10-02 15:30 | Physical Therapy Evaluation ---
PT Evaluation-General Medical Diagnosis Admission Date Oct 02, 2019 at 14:59 Medical Diagnosis: osteomyelitis right foot Onset Date: Sep 27, 2019 Therapy Diagnosis Therapy Diagnosis: debility/weakness Height/Weight Height (Feet): 5 Height (Inches): 11.00 Weight (Pounds): 179 Weight (Ounces): 9.0 Precautions Precautions/Isolations: Fall Prevention, Standard Precautions, Contact/Enteric Isolation Weight Bear Status Right Lower Extremity: Right Weight Bearing/Tolerated Left Lower Extremity: Left Weight Bearing/Tolerated As directed by Surgery per orders, however, was NWB right foot prior Referral Physician: Mal Reason for Referral: Evaluation/Treatment Medical History Pertinent Medical History: Atrial Fib, Alcoholism, DM, GERD, HTN, Smoking Additional Medical History s/p right 5th metatarsal/phalange amputation Current History SWB status Reviewed History: Yes Social History Home: Single Level Current Living Status: Alone Prior Prior Level of Function SCALE: Activities may be completed with or without assistive devices. 6-Aqduhhlcvi-yahjdhs completes the activity by him/herself with no assistance from a helper. 5-Set-up or Clean-up Assistance-helper sets up or cleans up; patient completes activity. Rebuck assists only prior to or following the activity. 4-Supervision or Touching Assistance-helper provides verbal cues and/or christie martha/steadying and/or contact guard assistance as patient completes activity. Assistance may be provided throughout the activity or intermittently. 3-Partial/Moderate Assistance-helper does LESS THAN HALF the effort. Rebuck lifts, holds or supports trunk or limbs, but provides less than half the effort. 2-Substantial/Maximal Assistance-helper does MORE THAN HALF the effort. Rebuck lifts or holds trunk or limbs and provides more than half the effort. 0-Rachzzrpp-lweato does ALL the effort. Patient does none of the effort to complete the activity. Or, the assistance of 2 or more helpers is required for the patient to complete the activity. If activity was not attempted, code reason: 7-Patient Refused. 9-Not Applicable-not attempted and the patient did not perform the activity before the current illness, exacerbation or injury. 10-Not Attempted due to Environmental Limitations-(lack of equipment, weather restraints, etc.). 88-Not Attempted due to Medical Conditions or Safety Concerns. Bed Mobility: 6 Transfers (B,C,W/C): 6 Gait: 6 Stairs: 6 Indoor Mobility (Ambulation): Independent Stairs: Independent Prior Devices Use: Walker PT Evaluation-Current Subjective Patient reluctantly agrees to PT. Pain Numeric Pain Scale: 0-No Pain Location: No Pain Reported Objective Patient Orientation: Confused Attachments: Oxygen wound vac right foot ROM/Strength ROM Lower Extremities bilateral LE WFL Strength Lower Extremities left LE 3/5 grossly/right LE 3-/5 grossly Integumentary/Posture Integumentary refer to nursing notes Bowel Incontinence: Yes Bladder Incontinence: Yes Posture WFL Neuromuscular (Tone, Coordination, Reflexes) grossly intact Sensory Vision: Functional Hearing: Functional Sensation Right Lower Extremit: Impaired Sensation Left Lower Extremity: Impaired Transfers Roll Left to Right (QC): 5 Sit to Lying (QC): 5 Lying to Sitting/Side of Bed(Q: 5 Sit to Stand (QC): 3 Chair/Mft-eh-Wywns Xfer(QC): 3 Toilet Transfer: 3 Car Transfer (QC): 88 patient was NWB right foot and unable to comply, however, per order history patient is either PWB or WBAT right foot Gait Does the Patient Walk?: No and Walking Goal IS indicated Walk 10 feet (QC): 88 Walk 50 ft with 2 Turns(QC): 88 Walk 150 ft (QC): 88 Walking 10ft/uneven surface-QC: 88 Stairs 1 Step (curb) (QC): 88 4 Steps (QC): 88 12 Steps (QC): 9 Balance Sitting Static: Normal Sitting Dynamic: Normal Standing Static: Fair Standing Dynamic: Fair Picking up an Object (QC): 88 Treatment Patient performed bilateral LE exercises in supine 8 reps each AP, HS and SLR/seated LAQ/education with patient on weight bearing status right foot, however, patient is unable to comply. Patient transfers with FWW and mod assist bed to recliner. Assessment/Needs 73 y.o. male, will benefit from skilled PT to address functional strength and mobility to improve current LOF to safely return to home or care facility at maximum LOF. Rehab Potential: Guarded Post Rehab Potential-Barriers: compliance PT Extractor Tender Raw Stock Goals Nursing Home Goals PT Extractor Tender Raw Stock Goals Time Frame: Oct 17, 2019 Roll Left & Right (QC): 5 Sit to Lying (QC): 5 Lying-Sitting on Side/Bed(QC): 5 Sit to Stand (QC): 5 Chair/Lmr-uk-Mryaj Xfer(QC): 5 Toilet Transfer (QC): 5 Car Transfer (QC): 5 Does the Patient Walk: No and Walking Goal IS indicated Walk 10 feet (QC): 4 Walk 50ft with 2 Turns (QC): 4 Walk 150 ft (QC): 88 Walking 10ft on Uneven Surface: 88 1 Step (curb) (QC): 4 4 Steps (QC): 88 12 Steps (QC): 88 Picking up an Object (QC): 4 PT Plan Problem List Problem List: Activity Tolerance, Functional Strength, Balance, Gait, Transfer, Bed Mobility Treatment/Plan Treatment Plan: Continue Plan of Care Treatment Plan: Bed Mobility, Education, Functional Activity Mushtaq, Functional Strength, Gait, Safety, Therapeutic Exercise, Transfers Treatment Duration: Oct 17, 2019 Frequency: 6 times per week Estimated Hrs Per Day: .25 hour per day Patient and/or Family Agrees t: Yes Safety Risks/Education Patient Education: Safety Issues Teaching Recipient: Patient Teaching Methods: Discussion Response to Teaching: Reinforcement Needed Discharge Recommendations Therapy Discharge Recommendati: Other, See Comments (half-way facility) Time/GCodes Time In: 1500 Time Out: 1523 Total Billed Treatment Time: 23 Total Billed Treatment 1 visit EVLowC 8 min FA 15 min FIORELLA CHAVEZ PT Oct 02, 2019 15:30
--- NOTE | 2019-10-02 15:45 | NUR ---
CM/SOHEILA received a phone call from [facility] that stated they will except the patient skilled for Saturday. CM/SS called patients DPOA to inform her of discharge plans. No other needs.
[2019-10-02 16:00] VITALS: BP 139/73
[2019-10-02] MEDS: inSUlin ASPART (NovoLOG) 1 UNIT/0.01 ML (CHARGE PER UNIT) SC SCH ×2 (18:19→20:31)
[2019-10-02] MEDS: RIVAROXABAN 20 MG TABLET (XARELTO) PO SCH (18:19)
[2019-10-02] MEDS: PIPERACILLIN/TAZOBACTAM (BULK) 4.5 GM in NS (IVPB) 100 ML IV SCH (18:21)
[2019-10-02 20:00] VITALS: BP 130/67
[2019-10-02] MEDS: VANCOMYCIN INJECTION 1,250 MG in NS (IVPB) 250 ML IV SCH (20:31)
[2019-10-02] MEDS: PREGABALIN 50 MG (LYRICA) CAP PO SCH (20:31)
[2019-10-03] MEDS: PIPERACILLIN/TAZOBACTAM (BULK) 4.5 GM in NS (IVPB) 100 ML IV SCH ×3 (02:24→18:32)
[2019-10-03 05:10] VITALS: BP 115/59
[2019-10-03] MEDS: MULTIVIT W/MINERALS TAB (THERAGRAN M) PO SCH (05:44)
[2019-10-03] MEDS: inSUlin ASPART (NovoLOG) 1 UNIT/0.01 ML (CHARGE PER UNIT) SC SCH ×4 (05:44→20:27)
[2019-10-03] MEDS ORDERED: KCL 20 MEQ TAB (K-DUR) PO SCH (07:00)
[2019-10-03 07:35] LABS: HEMOGLOBIN 9.3 G/DL (13.3-17.7); RED CELL DISTRIBUTION WIDTH 14.5 % (10.0-14.5); WHITE BLOOD COUNT 6.9 10^3/uL (4.3-11.0)
[2019-10-03 07:52] LABS: BUN/CREATININE RATIO 13; CALCIUM 8.2 MG/DL (8.5-10.1); CARBON DIOXIDE 23 MMOL/L (21-32); CHLORIDE 101 MMOL/L (98-107); CREATININE SERUM 0.69 MG/DL (0.60-1.30); GFR ESTIMATED > 60; GLUCOSE 107 MG/DL (70-105); POTASSIUM 4.3 MMOL/L (3.6-5.0); SODIUM 130 MMOL/L (135-145)
[2019-10-03] MEDS ORDERED: FUROSEMIDE 20 MG (LASIX) TAB PO SCH (09:00)
--- NOTE | 2019-10-03 09:29 | Physical Therapy Daily Note ---
PT Daily Note-Current Subjective States that he is doing okay. Transfers SCALE: Activities may be completed with or without assistive devices. 9-Hrjchzqpfc-[id number] completes the activity by him/herself with no assistance from a helper. 5-Set-up or Clean-up Assistance-helper sets up or cleans up; patient completes activity. [place] assists only prior to or following the activity. 4-Supervision or Touching Assistance-helper provides verbal cues and/or touching/steadying and/or contact guard assistance as patient completes activity. Assistance may be provided throughout the activity or intermittently. 3-Partial/Moderate Assistance-helper does LESS THAN HALF the effort. [place] lifts, holds or supports trunk or limbs, but provides less than half the effort. 2-Substantial/Maximal Assistance-helper does MORE THAN HALF the effort. [place] lifts or holds trunk or limbs and provides more than half the effort. 2-Kfokgxtod-muhsjn does ALL the effort. Patient does none of the effort to complete the activity. Or, the assistance of 2 or more helpers is required for the patient to complete the activity. If activity was not attempted, code reason: 7-Patient Refused. 9-Not Applicable-not attempted and the patient did not perform the activity before the current illness, exacerbation or injury. 10-Not Attempted due to Environmental Limitations-(lack of equipment, weather restraints, etc.). 88-Not Attempted due to Medical Conditions or Safety Concerns. Weight Bearing Right Lower Extremity: Right Weight Bearing/Tolerated Left Lower Extremity: Left Weight Bearing/Tolerated As directed by Surgery per orders, however, was NWB right foot prior Exercises Supine Ex: LE Protocol Supine Reps: 20 Assessment Current Status: Excellent Progress Patient did well with all exercises. PT Lottery Manager Goals Lottery Manager Goals PT [facility] Goals Time Frame: Oct 17, 2019 Roll Left & Right (QC): 5 Sit to Lying (QC): 5 Lying-Sitting on Side/Bed(QC): 5 Sit to Stand (QC): 5 Chair/Ymq-hg-Wyewy Xfer(QC): 5 Toilet Transfer (QC): 5 Car Transfer (QC): 5 Does the Patient Walk: No and Walking Goal IS indicated Walk 10 feet (QC): 4 Walk 50ft with 2 Turns (QC): 4 Walk 150 ft (QC): 88 Walking 10ft on Uneven Surface: 88 1 Step (curb) (QC): 4 4 Steps (QC): 88 12 Steps (QC): 88 Picking up an Object (QC): 4 PT Plan Treatment/Plan Treatment Plan: Continue Plan of Care Treatment Plan: Bed Mobility, Education, Functional Activity Mushtaq, Functional Strength, Gait, Safety, Therapeutic Exercise, Transfers Treatment Duration: Oct 17, 2019 Frequency: 6 times per week Estimated Hrs Per Day: .25 hour per day Patient and/or Family Agrees t: Yes Time/GCodes Time In: 899 Time Out: 914 Total Billed Treatment Time: 15 Total Billed Treatment 1, EX x 15 RUI RAUSCH PT Oct 03, 2019 09:29
[2019-10-03] MEDS: DIGOXIN 0.125 MG (LANOXIN) TAB PO SCH (10:38)
[2019-10-03] MEDS: PANTOPRAZOLE 40 MG (PROTONIX) TAB PO SCH (10:38)
[2019-10-03] MEDS: PREGABALIN 50 MG (LYRICA) CAP PO SCH ×2 (10:38→20:26)
[2019-10-03] MEDS: FOLIC ACID 1 MG TAB PO SCH (10:38)
[2019-10-03] MEDS: lisINopril 10 MG (PRINIVIL) TABLET PO SCH (10:38)
--- NOTE | 2019-10-03 12:22 | Progress Note - Cardiology ---
Cardiology SOAP Progress Note Subjective: No cp or palp or syncope or shortness of breath at rest Notes gen weakness Notes discomfort at site of surgery that is slowly improving Objective: I&O/Vital Signs 10/03/19 05:10 Temp 36.7 Pulse 68 Resp 20 B/P (MAP) 115/59 (77) Pulse Ox 96 O2 Delivery Nasal Cannula O2 Flow Rate 2.00 10/03/19 00:00 Intake Total 1062.5 ml Output Total 200 ml Balance 862.5 ml Weight (Pounds): 179 Weight (Ounces): 9.0 Weight (Calculated Kilograms): 81.501172 Constitutional: AAO x 3, well-developed, well-nourished Respiratory: No accessory muscle use; other (fair air entry, prolonged exp phase) Cardiovascular: regular rate-rhythm, S1 and S2, systolic murmur (soft ADINA at card base) Gastrointestional: No tender; soft; No guarding, No rebound; audible bowel sounds Extremities: other (mild to mod edema and redness of R leg and foot, s/p lateral toe amputation and wound-vac in place); No clubbing; cyanosis Neurologic/Psychiatric: oriented x 3, other (moves all limbs equally) Results/Procedures: Labs Laboratory Tests 10/02/19 15:54: Glucometer 185H 10/02/19 20:22: Glucometer 157H 10/03/19 05:40: Glucometer 141H 10/03/19 06:15: White Blood Count 6.9, Red Blood Count 2.98L, Hemoglobin 9.3L, Hematocrit 28L, Mean Corpuscular Volume 95, Mean Corpuscular Hemoglobin 31, Mean Corpuscular He moglobin Concent 33, Red Cell Distribution Width 14.5, Platelet Count 232, Mean Platelet Volume 10.0, Sodium Level 130L, Potassium Level 4.3, Chloride Level 101, Carbon Dioxide Level 23, Anion Gap 6, Blood Urea Nitrogen 9, Creatinine 0.69, Estimat Glomerular Filtration Rate > 60, BUN/Creatinine Ratio 13, Glucose Level 107H, Calcium Level 8.2L 10/03/19 11:21: Glucometer 134H Laboratory Tests 10/03/19 06:15 A/P: Assessment: Worsening hyponatremia, probably due to diuretic use COPD H/o PAF - currently SR (maintained on Dig and Cardizem) Echocardiogram of Sep 30, 2019: LVEF 60-65%. Grade 2 diastolic dysfunction. Mild MR. AoV thickening consistent with sclerosis. RVSP 22mmHg Probably chronic, mild diastolic CHF Right foot wound with osteomyelitis - s/p partial right foot amputation per Dr. Mackey on 09-30-2019 Xarelto for stroke prophylaxis - currently being held pending surgery COPD DM 2 H/o PAD for which he has seen Dr Barajas but has not been compliant with w/u or f/u Tobaccoism - cessation advised GERD Anxiety/depression H/o ETOH abuse - reports 4-5 glassed of wine and whiskey daily Plan: * D/c diuretics due to worsening hyponatremia * D/c K due to d/c diuretics * Monitor labs and follow closely * Card risk factor mod discussed with him and questions answered GAYLE KNIGHT MD FACP FACC CCDS Oct 03, 2019 12:22
[2019-10-03] MEDS: HYDROcodone/APAP 5 MG/325 MG (LORTAB) TAB PO PRN ×2 (13:00→20:26)
[2019-10-03] MEDS: NYSTATIN CREAM (MYCOSTATIN) 30 GM TUBE TP SCH ×2 (13:03→21:00)
[2019-10-03] MEDS: fluCOnazole (DIFLUCAN) 100 MG TAB PO SCH (13:03)
--- NOTE | 2019-10-03 13:09 | Progress Note - Hospitalist ---
Subjective HPI/CC On Admission Date Seen by Provider: Oct 03, 2019 Time Seen by Provider: 11:30 Subjective/Events-last exam Patient doing well Penis and scrotum are swollen Had yeast infection last time this happened Ice packs to the scrotum is helping I assessed the area with RN pediatric nephrologist and noted findings c/w yeast so will treat accordingly Wound vac in place Review of Systems Musculoskeletal: foot pain Objective Exam Vital Signs Vital Signs Date Time Temp Pulse Resp B/P (MAP) Pulse Ox O2 Delivery O2 Flow Rate FiO2 10/03/19 05:10 36.7 68 20 115/59 (77) 96 Nasal Cannula 2.00 Capillary Refill : Less Than 3 Seconds General Appearance: No Apparent Distress, WD/WN, Chronically ill Respiratory: Chest Non Tender, Lungs Clear, Normal Breath Sounds, No Accessory Muscle Use, No Respiratory Distress Cardiovascular: Regular Rate, Rhythm, No Edema, No Gallop, No JVD, No Murmur, Normal Peripheral Pulses Genital/Rectal: Other (edematous penis and scrotum with redness and white coating on skin) Neurologic/Psychiatric: Alert, Oriented x3, No Motor/Sensory Deficits, Normal Mood/Affect Results/Procedures Lab Laboratory Tests 10/03/19 06:15 Patient resulted labs reviewed. Assessment/Plan Assessment and Plan Assess & Plan/Chief Complaint Assessment: Toe amputation Osteomyelitis Yeast infection of penis and scrotum AF Hyponatremia OAC Plan: Monitor closely Diflucan Nystatin cream Monitor sodium level Diagnosis/Problems Diagnosis/Problems (1) Wound of right foot Status: Acute (2) Type 2 diabetes mellitus Status: Chronic (3) Hyponatremia Status: Resolved Resolution Date/Time: 05/27/19 @ 14:00 (4) Generalized weakness (5) Intertrigo (6) Alcohol abuse Status: Chronic (7) Current smoker Status: Chronic Clinical Quality Measures DVT/VTE Risk/Contraindication: Risk Factor Score Per Nursin REGAN GOMEZ DO Oct 03, 2019 13:09
[2019-10-03 18:00] VITALS: BP 144/72
[2019-10-03] MEDS: RIVAROXABAN 20 MG TABLET (XARELTO) PO SCH (18:32)
[2019-10-03] MEDS: VANCOMYCIN INJECTION 1,250 MG in NS (IVPB) 250 ML IV SCH (20:41)
[2019-10-04] MEDS: PIPERACILLIN/TAZOBACTAM (BULK) 4.5 GM in NS (IVPB) 100 ML IV SCH ×3 (02:35→18:14)
[2019-10-04] MEDS: MULTIVIT W/MINERALS TAB (THERAGRAN M) PO SCH (05:27)
[2019-10-04] MEDS: HYDROcodone/APAP 5 MG/325 MG (LORTAB) TAB PO PRN ×2 (05:28→20:17)
[2019-10-04] MEDS: inSUlin ASPART (NovoLOG) 1 UNIT/0.01 ML (CHARGE PER UNIT) SC SCH ×4 (05:28→21:00)
[2019-10-04 05:42] VITALS: BP 145/72
[2019-10-04 06:50] LABS: BASOPHILS # (AUTO) 0.1 10^3/uL (0.0-0.1); BASOPHILS % (AUTO) 1 % (0-10); EOSINOPHILS # (AUTO) 0.2 10^3/uL (0.0-0.3); EOSINOPHILS % (AUTO) 3 % (0-10); HEMATOCRIT 29 % (40-54); HEMOGLOBIN 9.6 G/DL (13.3-17.7); LYMPHOCYTES # (AUTO) 1.5 X 10^3 (1.0-4.0); LYMPHOCYTES % (AUTO) 22 % (12-44); MEAN CORPUSCULAR HEMOGLOBIN 32 PG (25-34); MEAN CORPUSCULAR HGB CONC 33 G/DL (32-36); MEAN CORPUSCULAR VOLUME 97 FL (80-99); MEAN PLATELET VOLUME 9.7 FL (7.4-10.4); MONOCYTES # (AUTO) 0.6 X 10^3 (0.0-1.0); MONOCYTES % (AUTO) 10 % (0-12); NEUTROPHILS # (AUTO) 4.2 X 10^3 (1.8-7.8); NEUTROPHILS % (AUTO) 64 % (42-75); PLATELET COUNT 215 10^3/uL (130-400); RED CELL DISTRIBUTION WIDTH 14.6 % (10.0-14.5); WHITE BLOOD COUNT 6.6 10^3/uL (4.3-11.0)
[2019-10-04 07:09] LABS: ALANINE AMINOTRANSFERASE 15 U/L (0-55); ALBUMIN 2.4 GM/DL (3.2-4.5); ALKALINE PHOSPHATASE 133 U/L (40-136); BILIRUBIN,TOTAL 0.4 MG/DL (0.1-1.0); BUN/CREATININE RATIO 14; CALCIUM 8.3 MG/DL (8.5-10.1); CARBON DIOXIDE 22 MMOL/L (21-32); CHLORIDE 103 MMOL/L (98-107); GFR ESTIMATED > 60; GLUCOSE 72 MG/DL (70-105); POTASSIUM 4.2 MMOL/L (3.6-5.0); SODIUM 133 MMOL/L (135-145); TOTAL PROTEIN 6.1 GM/DL (6.4-8.2)
[2019-10-04] MEDS: PREGABALIN 50 MG (LYRICA) CAP PO SCH ×2 (09:29→20:17)
[2019-10-04] MEDS: lisINopril 10 MG (PRINIVIL) TABLET PO SCH (09:29)
[2019-10-04] MEDS: PANTOPRAZOLE 40 MG (PROTONIX) TAB PO SCH (09:29)
[2019-10-04] MEDS: DIGOXIN 0.125 MG (LANOXIN) TAB PO SCH (09:29)
[2019-10-04] MEDS: FOLIC ACID 1 MG TAB PO SCH (09:29)
[2019-10-04] MEDS: fluCOnazole (DIFLUCAN) 100 MG TAB PO SCH (09:29)
[2019-10-04] MEDS: NYSTATIN CREAM (MYCOSTATIN) 30 GM TUBE TP SCH ×2 (09:30→21:00)
--- NOTE | 2019-10-04 13:27 | Progress Note - Hospitalist ---
Subjective HPI/CC On Admission Date Seen by Provider: Oct 04, 2019 Time Seen by Provider: 11:00 Subjective/Events-last exam Patient doing better Slow progress PICC line will be placed tomorrow Scrotum improved Diflucan and Nystatin cream ordered No BM yet in past 2 days and requesting meds Review of Systems General: Fatigue Gastrointestinal: Constipation Objective Exam Vital Signs Vital Signs Date Time Temp Pulse Resp B/P (MAP) Pulse Ox O2 Delivery O2 Flow Rate FiO2 10/04/19 18:10 91 Nasal Cannula 2.00 10/04/19 18:09 37.6 83 22 160/84 (109) Capillary Refill : Less Than 3 SecondsLess Than 3 Seconds General Appearance: No Apparent Distress, WD/WN Respiratory: Chest Non Tender, Lungs Clear, Normal Breath Sounds, No Accessory Muscle Use, No Respiratory Distress Cardiovascular: Regular Rate, Rhythm, No Edema, No Gallop, No JVD, No Murmur, Normal Peripheral Pulses Neurologic/Psychiatric: Alert, Oriented x3, No Motor/Sensory Deficits, Normal Mood/Affect Results/Procedures Lab Laboratory Tests 10/04/19 06:29 Patient resulted labs reviewed. Assessment/Plan Assessment and Plan Assess & Plan/Chief Complaint Assessment: Toe amputation Osteomyelitis Yeast infection of penis and scrotum AF Hyponatremia OAC Plan: Monitor closely Diflucan Nystatin cream Monitor sodium level DC to [place] tomorrow? Diagnosis/Problems Diagnosis/Problems (1) Wound of right foot Status: Acute (2) Type 2 diabetes mellitus Status: Chronic (3) Hyponatremia Status: Resolved Resolution Date/Time: 05/27/19 @ 14:00 (4) Generalized weakness (5) Intertrigo (6) Alcohol abuse Status: Chronic (7) Current smoker Status: Chronic Clinical Quality Measures DVT/VTE Risk/Contraindication: Risk Factor Score Per Nursin REGAN GOMEZ DO Oct 04, 2019 13:27
[2019-10-04] MEDS ORDERED: DOCUSATE SODIUM 100 MG (COLACE) CAP PO ONE ×2 (13:30→17:09)
--- NOTE | 2019-10-04 14:38 | Progress Note - Cardiology ---
Cardiology SOAP Progress Note Subjective: No cp or palp or syncope Mild discomfort at site of surg, improved No n/v/d Objective: I&O/Vital Signs 10/04/19 10/04/19 10/04/19 10/04/19 05:28 05:42 06:10 09:00 Temp 36.7 37.0 37.0 Pulse 66 Resp 18 B/P (MAP) 145/72 (96) Pulse Ox 93 O2 Delivery Room Air Room Air 10/04/19 09:37 Pulse 78 10/04/19 00:00 Intake Total 1810 ml Output Total 500 ml Balance 1310 ml Weight (Pounds): 179 Weight (Ounces): 9.0 Weight (Calculated Kilograms): 81.938717 Constitutional: AAO x 3, well-developed, well-nourished Respiratory: No accessory muscle use; other (fair air entry, prolonged exp phase) Cardiovascular: regular rate-rhythm, S1 and S2, systolic murmur (soft ADINA at card base) Gastrointestional: No tender; soft; No guarding, No rebound; audible bowel sounds Extremities: other (mild to mod edema and redness of R leg and foot, s/p lateral toe amputation and wound-vac in place); No clubbing; cyanosis Neurologic/Psychiatric: oriented x 3, other (moves all limbs equally) Results/Procedures: Labs Laboratory Tests 10/03/19 16:12: Glucometer 158H 10/03/19 20:02: Glucometer 201H 10/04/19 05:22: Glucometer 76 10/04/19 06:29: White Blood Count 6.6, Red Blood Count 3.00L, Hemoglobin 9.6L, Hematocrit 29L, Mean Corpuscular Volume 97, Mean Corpuscular Hemoglobin 32, Mean Corpuscular Hemoglobin Concent 33, Red Cell Distribution Width 14.6H, Platelet Count 215, Mean Platelet Volume 9.7, Neutrophils (%) (Auto) 64, Lymphocytes (%) (Auto) 22, Monocytes (%) (Auto) 10, Eosinophils (%) (Auto) 3, Basophils (%) (Auto) 1, Neutrophils # (Auto) 4.2, Lymphocytes # (Auto) 1.5, Monocytes # (Auto) 0.6, Eosinophils # (Auto) 0.2, Basophils # (Auto) 0.1, Sodium Level 133L, Potassium Level 4.2, Chloride Level 103, Carbon Dioxide Level 22, Anion Gap 8, Blood Urea Nitrogen 10, Creatinine 0.70, Estimat Glomerular Filtration Rate > 60, BUN/Creatinine Ratio 14, Glucose Level 72, Calcium Level 8.3L, Corrected Calcium 9.6, Total Bilirubin 0.4, Aspartate Amino Transf (AST/SGOT) 21, Alanine Aminotransferase (ALT/SGPT) 15, Alkaline Phosphatase 133, Total Protein 6.1L, Albumin 2.4L 10/04/19 11:52: Glucometer 117H Laboratory Tests 10/03/19 06:15 10/04/19 06:29 A/P: Assessment: Worsening hyponatremia, probably due to diuretic use COPD H/o PAF - currently SR (maintained on Dig and Cardizem) Echocardiogram of Sep 30, 2019: LVEF 60-65%. Grade 2 diastolic dysfunction. Mild MR. AoV thickening consistent with sclerosis. RVSP 22mmHg Probably chronic, mild diastolic CHF Right foot wound with osteomyelitis - s/p partial right foot amputation per Dr. Mackey on 09-30-2019 Xarelto for stroke prophylaxis - currently being held pending surgery COPD DM 2 H/o PAD for which he has seen Dr Barajas but has not been compliant with w/u or f/u Tobaccoism - cessation advised GERD Anxiety/depression H/o ETOH abuse - reports 4-5 glassed of wine and whiskey daily Plan: * Hyponatremia improving after d/c diuretics * Monitor labs and follow closely * Card risk factor mod discussed with him and questions answered GAYLE KNIGHT MD FACP FAC CCDS Oct 04, 2019 14:38
[2019-10-04] MEDS: RIVAROXABAN 20 MG TABLET (XARELTO) PO SCH (17:18)
[2019-10-04 18:09] VITALS: BP 160/84
--- NOTE | 2019-10-04 18:21 | NUR ---
PT REPORTS SOA THAT BEGAN BEGAN ABOUT AN HOUR AGO. 91% ON 2LNC. VS OBTAINED. UPPER LOBES CTA. BILATERAL LOWER LOBES FINE CRACKLES NOTED. DR GOMEZ NOTIFIED VIA PHONE.
[2019-10-04] MEDS ORDERED: FUROSEMIDE 40 MG/4 ML INJ (LASIX) IVP ONE (18:30)
[2019-10-04] MEDS: MIRTAZAPINE 15 MG (REMERON) TAB PO SCH (20:18)
[2019-10-04] MEDS: VANCOMYCIN INJECTION 1,250 MG in NS (IVPB) 250 ML IV SCH (20:26)
[2019-10-04] MEDS: DOCUSATE SODIUM 100 MG (COLACE) CAP PO SCH (20:27)
[2019-10-04] MEDS: RT-ALBUTEROL SULF 2.5 MG/3 ML PRE-MIX VIAL INH SCH (23:07)
--- NOTE | 2019-10-04 23:56 | NUR ---
PT CAN BE VERY RUDE AND DISRESPECTFUL TO STAFF AND OFTEN NEEDS REMINDED TO BE KIND AND RESPECTFUL Addendum: 10/04/19 at 2643 by GURU TEJADA RN Amended: Links added.
[2019-10-05] MEDS: PIPERACILLIN/TAZOBACTAM (BULK) 4.5 GM in NS (IVPB) 100 ML IV SCH ×3 (02:30→18:06)
[2019-10-05 06:33] VITALS: BP 122/77
[2019-10-05] MEDS: inSUlin ASPART (NovoLOG) 1 UNIT/0.01 ML (CHARGE PER UNIT) SC SCH ×4 (06:52→20:16)
[2019-10-05 07:56] LABS: BASOPHILS # (AUTO) 0.1 10^3/uL (0.0-0.1); BASOPHILS % (AUTO) 1 % (0-10); EOSINOPHILS # (AUTO) 0.2 10^3/uL (0.0-0.3); EOSINOPHILS % (AUTO) 4 % (0-10); HEMATOCRIT 32 % (40-54); HEMOGLOBIN 10.6 G/DL (13.3-17.7); LYMPHOCYTES # (AUTO) 1.6 X 10^3 (1.0-4.0); LYMPHOCYTES % (AUTO) 24 % (12-44); MEAN CORPUSCULAR HEMOGLOBIN 32 PG (25-34); MEAN CORPUSCULAR HGB CONC 33 G/DL (32-36); MEAN CORPUSCULAR VOLUME 96 FL (80-99); MEAN PLATELET VOLUME 9.5 FL (7.4-10.4); MONOCYTES # (AUTO) 0.9 X 10^3 (0.0-1.0); MONOCYTES % (AUTO) 14 % (0-12); NEUTROPHILS # (AUTO) 3.8 X 10^3 (1.8-7.8); NEUTROPHILS % (AUTO) 58 % (42-75); PLATELET COUNT 284 10^3/uL (130-400); RED CELL DISTRIBUTION WIDTH 14.9 % (10.0-14.5); WHITE BLOOD COUNT 6.6 10^3/uL (4.3-11.0)
[2019-10-05 08:18] LABS: ALANINE AMINOTRANSFERASE 16 U/L (0-55); ALBUMIN 2.8 GM/DL (3.2-4.5); ALKALINE PHOSPHATASE 163 U/L (40-136); BILIRUBIN,TOTAL 0.5 MG/DL (0.1-1.0); BUN/CREATININE RATIO 10; CALCIUM 9.1 MG/DL (8.5-10.1); CARBON DIOXIDE 24 MMOL/L (21-32); CHLORIDE 104 MMOL/L (98-107); CREATININE SERUM 0.78 MG/DL (0.60-1.30); GFR ESTIMATED > 60; GLUCOSE 89 MG/DL (70-105); POTASSIUM 4.3 MMOL/L (3.6-5.0); SODIUM 133 MMOL/L (135-145); TOTAL PROTEIN 7.1 GM/DL (6.4-8.2)
[2019-10-05] MEDS: MULTIVIT W/MINERALS TAB (THERAGRAN M) PO SCH (08:54)
[2019-10-05] MEDS: FOLIC ACID 1 MG TAB PO SCH (08:54)
[2019-10-05] MEDS: fluCOnazole (DIFLUCAN) 100 MG TAB PO SCH (08:54)
[2019-10-05] MEDS: PREGABALIN 50 MG (LYRICA) CAP PO SCH ×2 (08:54→20:09)
[2019-10-05] MEDS: DIGOXIN 0.125 MG (LANOXIN) TAB PO SCH (08:54)
[2019-10-05] MEDS: DOCUSATE SODIUM 100 MG (COLACE) CAP PO SCH ×2 (08:54→20:09)
[2019-10-05] MEDS: PANTOPRAZOLE 40 MG (PROTONIX) TAB PO SCH (08:55)
[2019-10-05] MEDS: lisINopril 10 MG (PRINIVIL) TABLET PO SCH (08:55)
[2019-10-05] MEDS: NYSTATIN CREAM (MYCOSTATIN) 30 GM TUBE TP SCH ×2 (08:56→20:16)
--- NOTE | 2019-10-05 09:48 | Progress Note - Cardiology ---
Cardiology SOAP Progress Note Subjective: Sitting up in recliner at the bedside. Wound vac to right foot. He denies any c/o CP, palpitations, dyspnea. States he is going to [facility] today. Objective: I&O/Vital Signs 10/06/19 06:00 Temp 37.3 Pulse 73 Resp 20 B/P (MAP) 134/68 (90) Pulse Ox 90 O2 Delivery Nasal Cannula O2 Flow Rate 2.00 10/06/19 00:00 Intake Total 1492 ml Output Total 875 ml Balance 617 ml Weight (Pounds): 179 Weight (Ounces): 9.0 Weight (Calculated Kilograms): 81.375875 Constitutional: AAO x 3, well-developed, well-nourished Respiratory: No accessory muscle use; other (fair air entry, prolonged exp phase) Cardiovascular: regular rate-rhythm, S1 and S2, systolic murmur (soft ADINA at card base) Gastrointestional: No tender; soft; No guarding, No rebound; audible bowel sounds Extremities: other (mod edema and redness of R leg and foot, s/p lateral toe amputation and wound-vac in place); No clubbing; cyanosis Neurologic/Psychiatric: oriented x 3, other (moves all limbs equally) Results/Procedures: Labs Laboratory Tests 10/05/19 15:45: Glucometer 164H 10/05/19 18:42: Vancomycin Level Trough 11.9 10/05/19 20:15: Glucometer 261H 10/06/19 05:00: White Blood Count 6.8, Red Blood Count 2.91L, Hemoglobin 9.3L, Hematocrit 28L, Mean Corpuscular Volume 96, Mean Corpuscular Hemoglobin 32, Mean Corpuscular Hemoglobin Concent 33, Red Cell Distribution Width 14.8H, Platelet Count 276, Mean Platelet Volume 9.8, Neutrophils (%) (Auto) 57, Lymphocytes (%) (Auto) 24, Monocytes (%) (Auto) 16H, Eosinophils (%) (Auto) 3, Basophils (%) (Auto) 1, Neutrophils # (Auto) 3.9, Lymphocytes # (Auto) 1.6, Monocytes # (Auto) 1.1H, Eosinophils # (Auto) 0.2, Basophils # (Auto) 0.0, Sodium Level 134L, Potassium Level 4.1, Chloride Level 103, Carbon Dioxide Level 24, Anion Gap 7, Blood Urea Nitrogen 8, Creatinine 0.76, Estimat Glomerular Filtration Rate > 60, BUN/Creatinine Ratio 11, Glucose Level 97, Calcium Level 8.5, Corrected Calcium 9.6, Total Bilirubin 0.4, Aspartate Amino Transf (AST/SGOT) 18, Alanine Aminotransferase (ALT/SGPT) 14, Alkaline Phosphatase 136, Total Protein 6.5, Albumin 2.6L 10/06/19 05:18: Glucometer 117H A/P: Assessment: Hyponatremia, probably due to diuretic use - improving COPD H/o PAF - currently SR (maintained on Dig and Cardizem) Echocardiogram of Sep 30, 2019: LVEF 60-65%. Grade 2 diastolic dysfunction. Mild MR. AoV thickening consistent with sclerosis. RVSP 22mmHg Probably chronic, mild diastolic CHF Right foot wound with osteomyelitis - s/p partial right foot amputation per Dr. Mackey on 09-30-2019 Xarelto for stroke prophylaxis COPD DM 2 H/o PAD for which he has seen Dr Barajas but has not been compliant with w/u or f/u Tobaccoism - cessation advised GERD Anxiety/depression H/o ETOH abuse - reports 4-5 glassed of wine and whiskey daily Plan: * Hyponatremia improved * Monitor labs * Xarelto has been resumed for stroke prophylaxis d/t PAF * Plan is to possibly discharge to [facility] today * Out pt f/u is advised * Card risk factor mod discussed with him and questions answered ESTHER MACKEY Oct 05, 2019 09:47
[2019-10-05] MEDS: RT-ALBUTEROL SULF 2.5 MG/3 ML PRE-MIX VIAL INH SCH ×3 (09:52→19:07)
--- NOTE | 2019-10-05 10:58 | NUR ---
Antione requested from pharm
--- NOTE | 2019-10-05 11:14 | Physical Therapy Daily Note ---
PT Daily Note-Current Subjective Patient declined OOB activity and agrees to exercises. Mental Status Patient Orientation: Person, Time, Situation Attachments: Oxygen, Gleason Catheter, IV wound vac Transfers SCALE: Activities may be completed with or without assistive devices. 7-Nkvtdambhw-lzspgii completes the activity by him/herself with no assistance from a helper. 5-Set-up or Clean-up Assistance-helper sets up or cleans up; patient completes activity. Florence assists only prior to or following the activity. 4-Supervision or Touching Assistance-helper provides verbal cues and/or touching/steadying and/or contact guard assistance as patient completes activity. Assistance may be provided throughout the activity or intermittently. 3-Partial/Moderate Assistance-helper does LESS THAN HALF the effort. Florence lifts, holds or supports trunk or limbs, but provides less than half the effort. 2-Substantial/Maximal Assistance-helper does MORE THAN HALF the effort. Florence lifts or holds trunk or limbs and provides more than half the effort. 3-Cpjdakstx-kflcib does ALL the effort. Patient does none of the effort to complete the activity. Or, the assistance of 2 or more helpers is required for the patient to complete the activity. If activity was not attempted, code reason: 7-Patient Refused. 9-Not Applicable-not attempted and the patient did not perform the activity before the current illness, exacerbation or injury. 10-Not Attempted due to Environmental Limitations-(lack of equipment, weather restraints, etc.). 88-Not Attempted due to Medical Conditions or Safety Concerns. Weight Bearing Right Lower Extremity: Right Weight Bearing/Tolerated Left Lower Extremity: Left Weight Bearing/Tolerated As directed by Surgery per orders, however, was NWB right foot prior Exercises Supine Ex: Ankle pumps, Quad Set, Heel Slides, Straight leg raise, Hip abd/add Supine Reps: 15 (2 sets AAROM right LE) Assessment Patient tolerated treatment well and remained in bed. Nursing in to place PIC line. PT Microstrategy Developer Goals Nursing Home Goals PT Microstrategy Developer Goals Time Frame: Oct 17, 2019 Roll Left & Right (QC): 5 Sit to Lying (QC): 5 Lying-Sitting on Side/Bed(QC): 5 Sit to Stand (QC): 5 Chair/Hez-fy-Toyyo Xfer(QC): 5 Toilet Transfer (QC): 5 Car Transfer (QC): 5 Does the Patient Walk: No and Walking Goal IS indicated Walk 10 feet (QC): 4 Walk 50ft with 2 Turns (QC): 4 Walk 150 ft (QC): 88 Walking 10ft on Uneven Surface: 88 1 Step (curb) (QC): 4 4 Steps (QC): 88 12 Steps (QC): 88 Picking up an Object (QC): 4 PT Plan Treatment/Plan Treatment Plan: Continue Plan of Care Treatment Plan: Bed Mobility, Education, Functional Activity Mushtaq, Functional Strength, Gait, Safety, Therapeutic Exercise, Transfers Treatment Duration: Oct 17, 2019 Frequency: 6 times per week Estimated Hrs Per Day: .25 hour per day Patient and/or Family Agrees t: Yes Time/GCodes Time In: 1053 Time Out: 1108 Total Billed Treatment Time: 15 Total Billed Treatment 1 visit EX 15 min FIORELLA CHAVEZ PT Oct 05, 2019 11:14
--- NOTE | 2019-10-05 11:49 | NUR ---
Received zosyn from pharmacy, pt currently having PICC line placed at bedside, will administer antibiotic when finished.
--- NOTE | 2019-10-05 11:58 | Progress Note - Hospitalist ---
Subjective HPI/CC On Admission Date Seen by Provider: Oct 05, 2019 Time Seen by Provider: 10:30 Subjective/Events-last exam Pt ready for [facility] tomorrow Wound vac and iv antibiotics maintained Overall doing very well Review of Systems General: Fatigue Musculoskeletal: foot pain Objective Exam Vital Signs Vital Signs Date Time Temp Pulse Resp B/P (MAP) Pulse Ox O2 Delivery O2 Flow Rate FiO2 10/05/19 20:10 37.4 10/05/19 19:07 97 Nasal Cannula 2.00 10/05/19 18:01 80 20 143/66 (91) Capillary Refill : Less Than 3 SecondsLess Than 3 Seconds General Appearance: No Apparent Distress, WD/WN, Chronically ill Respiratory: Chest Non Tender, Lungs Clear, Normal Breath Sounds, No Accessory Muscle Use, No Respiratory Distress Cardiovascular: Regular Rate, Rhythm, No Edema, No Gallop, No JVD, No Murmur, Normal Peripheral Pulses Results/Procedures Lab Laboratory Tests 10/05/19 07:30 Patient resulted labs reviewed. Assessment/Plan Assessment and Plan Assess & Plan/Chief Complaint Assessment: Toe amputation Osteomyelitis Yeast infection of penis and scrotum AF Hyponatremia OAC Plan: Monitor closely Diflucan Nystatin cream Monitor sodium level DC to [place] tomorrow? Diagnosis/Problems Diagnosis/Problems (1) Wound of right foot Status: Acute (2) Type 2 diabetes mellitus Status: Chronic (3) Hyponatremia Status: Resolved Resolution Date/Time: 05/27/19 @ 14:00 (4) Generalized weakness (5) Intertrigo (6) Alcohol abuse Status: Chronic (7) Current smoker Status: Chronic Clinical Quality Measures DVT/VTE Risk/Contraindication: Risk Factor Score Per Nursin REGAN GOMEZ DO Oct 05, 2019 11:58
--- NOTE | 2019-10-05 12:38 | Diagnostic Imaging Report ---
INDICATION: Post PICC line. FINDINGS: Right PICC catheter distal tip projects at the lower SVC in good alignment. Cardiomegaly, vascular congestion, right greater than left pleural effusions are all noted and mildly increased. IMPRESSION: PICC line in good position. Worsened failure pattern noted. Given the asymmetry, superimposed pneumonia in the right lung could not be excluded in the appropriate scenario. Dictated by: Dictated on workstation # [id number]
--- NOTE | 2019-10-05 13:27 | Progress Note - Cardiology ---
Cardiology SOAP Progress Note Subjective: No cp or palp or syncope or leg or foot discomfort No n/v/d Objective: I&O/Vital Signs 10/05/19 10/05/19 10/05/19 06:33 09:00 09:52 Temp 36.7 Pulse 78 B/P (MAP) 122/77 (92) Pulse Ox 18 93 O2 Delivery Nasal Cannula Nasal Cannula Nasal Cannula O2 Flow Rate 3.00 10/05/19 00:00 Intake Total 1120 ml Output Total 1250 ml Balance -130 ml Weight (Pounds): 179 Weight (Ounces): 9.0 Weight (Calculated Kilograms): 81.213363 Constitutional: AAO x 3, well-developed, well-nourished Respiratory: No accessory muscle use; other (fair air entry, prolonged exp phase) Cardiovascular: regular rate-rhythm, S1 and S2, systolic murmur (soft ADINA at card base) Gastrointestional: No tender; soft; No guarding, No rebound; audible bowel sounds Extremities: other (mod edema and redness of R leg and foot, s/p lateral toe amputation and wound-vac in place); No clubbing; cyanosis Neurologic/Psychiatric: oriented x 3, other (moves all limbs equally) Results/Procedures: Labs Laboratory Tests 10/04/19 16:04: Glucometer 112H 10/04/19 20:46: Glucometer 151H 10/05/19 06:49: Glucometer 92 10/05/19 07:30: White Blood Count 6.6, Red Blood Count 3.36L, Hemoglobin 10.6L, Hematocrit 32L, Mean Corpuscular Volume 96, Mean Corpuscular Hemoglobin 32, Mean Corpuscular Hemoglobin Concent 33, Red Cell Distribution Width 14.9H, Platelet Count 284, Mean Platelet Volume 9.5, Neutrophils (%) (Auto) 58, Lymphocytes (%) (Auto) 24, Monocytes (%) (Auto) 14H, Eosinophils (%) (Auto) 4, Basophils (%) (Auto) 1, Neutrophils # (Auto) 3.8, Lymphocytes # (Auto) 1.6, Monocytes # (Auto) 0.9, Eosinophils # (Auto) 0.2, Basophils # (Auto) 0.1, Sodium Level 133L, Potassium Level 4.3, Chloride Level 104, Carbon Dioxide Level 24, Anion Gap 5, Blood Urea Nitrogen 8, Creatinine 0.78, Estimat Glomerular Filtration Rate > 60, BUN/ Creatinine Ratio 10, Glucose Level 89, Calcium Level 9.1, Corrected Calcium 10.1, Total Bilirubin 0.5, Aspartate Amino Transf (AST/SGOT) 22, Alanine Aminotransferase (ALT/SGPT) 16, Alkaline Phosphatase 163H, Total Protein 7.1, Albumin 2.8L Laboratory Tests 10/04/19 06:29 10/05/19 07:30 A/P: Assessment: Hyponatremia, probably due to diuretic use - improving slowly COPD H/o PAF - currently SR (maintained on Dig and Cardizem) Echocardiogram of Sep 30, 2019: LVEF 60-65%. Grade 2 diastolic dysfunction. Mild MR. AoV thickening consistent with sclerosis. RVSP 22mmHg Probably chronic, mild diastolic CHF Right foot wound with osteomyelitis - s/p partial right foot amputation per Dr. Mackey on 09-30-2019 Xarelto for stroke prophylaxis COPD DM 2 H/o PAD for which he has seen Dr Barajas but has not been compliant with w/u or f/u Tobaccoism - cessation advised GERD Anxiety/depression H/o ETOH abuse - reports 4-5 glassed of wine and whiskey daily Plan: * Hyponatremia improving * Monitor labs * Xarelto has been resumed for stroke prophylaxis d/t PAF * Med Svce's plan is to possibly discharge to [facility] today * Outpt f/u is advised * Card risk factor mod discussed with him and questions answered GAYLE KNIGHT MD FACP FAC CCDS Oct 05, 2019 13:27
--- NOTE | 2019-10-05 16:48 | NUR ---
CM/SS follow up with and update discharge planning. Plan: The plan is for the patient to go skilled at [facility] tomorrow if the wound care supplies are delivered to the facility. The facility states they ordered the wound supplies on Saturday the . CM/SS called the patients JESSICA Licea to inform her of the updated plan. CM/SS informed the patient about the plan moving to tomorrow for discharge. He verbalized understanding. The facility is supposed to get a hold of CM/SS tomorrow morning with plan and pick up attendant time.
[2019-10-05 18:01] VITALS: BP 143/66
[2019-10-05] MEDS: RIVAROXABAN 20 MG TABLET (XARELTO) PO SCH (18:06)
[2019-10-05] MEDS ORDERED: TROUGH ORDER-PHARMACY XX NR (18:30)
[2019-10-05] MEDS ORDERED: VANCOMYCIN 1,750 MG/NS 500 ML IVPB IV SCH ×2 (19:30)
[2019-10-05] MEDS: MIRTAZAPINE 15 MG (REMERON) TAB PO SCH (20:09)
[2019-10-05] MEDS: HYDROcodone/APAP 5 MG/325 MG (LORTAB) TAB PO PRN (20:10)
[2019-10-06] MEDS: PIPERACILLIN/TAZOBACTAM (BULK) 4.5 GM in NS (IVPB) 100 ML IV SCH ×2 (02:30→09:39)
[2019-10-06] MEDS: MULTIVIT W/MINERALS TAB (THERAGRAN M) PO SCH (05:34)
[2019-10-06] MEDS: inSUlin ASPART (NovoLOG) 1 UNIT/0.01 ML (CHARGE PER UNIT) SC SCH ×2 (05:41→11:32)
[2019-10-06 06:00] VITALS: BP 134/68
[2019-10-06 06:06] LABS: BASOPHILS % (AUTO) 1 % (0-10); EOSINOPHILS # (AUTO) 0.2 10^3/uL (0.0-0.3); EOSINOPHILS % (AUTO) 3 % (0-10); HEMATOCRIT 28 % (40-54); HEMOGLOBIN 9.3 G/DL (13.3-17.7); LYMPHOCYTES # (AUTO) 1.6 X 10^3 (1.0-4.0); LYMPHOCYTES % (AUTO) 24 % (12-44); MEAN CORPUSCULAR HEMOGLOBIN 32 PG (25-34); MEAN CORPUSCULAR HGB CONC 33 G/DL (32-36); MEAN CORPUSCULAR VOLUME 96 FL (80-99); MEAN PLATELET VOLUME 9.8 FL (7.4-10.4); MONOCYTES # (AUTO) 1.1 X 10^3 (0.0-1.0); MONOCYTES % (AUTO) 16 % (0-12); NEUTROPHILS # (AUTO) 3.9 X 10^3 (1.8-7.8); NEUTROPHILS % (AUTO) 57 % (42-75); PLATELET COUNT 276 10^3/uL (130-400); RED CELL DISTRIBUTION WIDTH 14.8 % (10.0-14.5); WHITE BLOOD COUNT 6.8 10^3/uL (4.3-11.0)
[2019-10-06 06:23] LABS: ALANINE AMINOTRANSFERASE 14 U/L (0-55); ALBUMIN 2.6 GM/DL (3.2-4.5); ALKALINE PHOSPHATASE 136 U/L (40-136); BILIRUBIN,TOTAL 0.4 MG/DL (0.1-1.0); BUN/CREATININE RATIO 11; CALCIUM 8.5 MG/DL (8.5-10.1); CARBON DIOXIDE 24 MMOL/L (21-32); CHLORIDE 103 MMOL/L (98-107); CREATININE SERUM 0.76 MG/DL (0.60-1.30); GFR ESTIMATED > 60; GLUCOSE 97 MG/DL (70-105); POTASSIUM 4.1 MMOL/L (3.6-5.0); SODIUM 134 MMOL/L (135-145); TOTAL PROTEIN 6.5 GM/DL (6.4-8.2)
--- NOTE | 2019-10-06 07:50 | Therapy Team Discharge Summary ---
Therapy Discharge Summary Discharge Recommendations Date of Discharge Physical Therapy Patient seen by skilled PT to address NWB right foot due to 5th metatarsal and phalanx amputation. Patient performed bed mobility SBA to independent to EOB, supine and rolling. Patient unable to maintain NWB right foot due to weakness. Patient performed sit to stand and SPT mod assist with use of FWW. Patient compliant with exercises with PT encouragement. Wound vac in place right foot at all times. PT to continue at [place] to improve patient strength and functional mobility to safely return to home. Goals address but not attained. PT Enamel Shader Goals Residential Goals PT Residential Goals Time Frame: Oct 17, 2019 Roll Left to Right (QC): 5 Sit to Lying (QC): 5 Lying-Sitting on Side/Bed(QC): 5 Sit to Stand (QC): 5 Chair/Yec-sq-Rwutu Xfer(QC): 5 Car Transfer (QC): 5 Does the Patient Walk: No and Walking Goal IS indicated Walk 10 feet (QC): 4 Walk 10ft-Uneven Surface(QC): 88 Walk 50ft with 2 Turns (QC): 4 Walk 150 ft (QC): 88 1 Step (curb) (QC): 4 4 Steps (QC): 88 12 Steps (QC): 88 Picking up an Object (QC): 4 OT Residential Goals Residential Goals Toilet/Commode Transfer (QC): 5 1=Demonstrate adherence to instructed precautions during ADL tasks. 2=Patient will verbalize/demonstrate understanding of assistive devices/modifications for ADL. 3=Patient will improve strength/tolerance for activity to enable patient to perform ADL's. FIORELLA CHAVEZ PT Oct 06, 2019 07:50
[2019-10-06] MEDS: DIGOXIN 0.125 MG (LANOXIN) TAB PO SCH (09:39)
[2019-10-06] MEDS: lisINopril 10 MG (PRINIVIL) TABLET PO SCH (09:39)
[2019-10-06] MEDS: FOLIC ACID 1 MG TAB PO SCH (09:39)
[2019-10-06] MEDS: fluCOnazole (DIFLUCAN) 100 MG TAB PO SCH (09:39)
[2019-10-06] MEDS: PANTOPRAZOLE 40 MG (PROTONIX) TAB PO SCH (09:40)
[2019-10-06] MEDS: NYSTATIN CREAM (MYCOSTATIN) 30 GM TUBE TP SCH (09:40)
[2019-10-06] MEDS: PREGABALIN 50 MG (LYRICA) CAP PO SCH (09:48)
[2019-10-06] MEDS: DOCUSATE SODIUM 100 MG (COLACE) CAP PO SCH (09:48)
[2019-10-06] MEDS ORDERED: SILVER NITRATE APPLICATOR 1 PKT TP ONE (10:45)
--- NOTE | 2019-10-06 11:20 | NUR ---
PTD VANCOMYCIN PLAN: PLAN FOR DISCHARGE TODAY, WILL GIVE VANCOMYCIN 1,500MG IV X 1 DOSE NOW, AND THEN RESUME 1,750MG IV DAILY STARTING TOMORROW, RECOMMENDED CHECKING A TROUGH LEVEL ON 10/07 OR 10/08 TO EVALUATE CLEARANCE THAN THIN AT MINIMUM A WEEKLY VANCOMYCIN LEVEL TO EVALUATE CLEARANCE AND ACCUMULATION.
[2019-10-06] MEDS ORDERED: [UNRECOGNIZED DRUG - CODE] IV (11:24)
[2019-10-06] MEDS ORDERED: FOLI1TAB24 PO (11:24)
[2019-10-06] MEDS ORDERED: ACHD5005 PO (11:24)
[2019-10-06] MEDS ORDERED: DOCU-244 PO (11:24)
[2019-10-06] MEDS ORDERED: MIRT-47 PO (11:24)
[2019-10-06] MEDS ORDERED: NYST15CR TP (11:24)
--- NOTE | 2019-10-06 11:26 | Discharge Inst-Skilled Nursing ---
Discharge Inst-Skilled NF Reconcile Patient Problems Problems Reviewed?: Yes Patient Instructions Patient Problems: Left foot osteomyelitis Goal: [place] Consult/Follow Up/Orders Follow Up Appt.: [facility] rounds Skilled NF Admit to: [facility] Certification (SNF) I certify that SNF services are required to be given on an inpatient basis because of the above named patient's need for [place] [facility] care on a continuing basis for the conditions(s) for which he/she was receiving inpatient hospital services prior to his/her transfer to the SNF. Care Home Facility Order: Nursing Services, Air Purifier Servicer-Evaluate & Treat, Physical Therapy-Evaluate & Treat, Speech Language-Evaluate & Treat, Wound Care-Eval/Treat (wound vac) Oxygen Delivery Method: Nasal Cannula Resuscitation Status: Full Code New & Resume Previous Orders New Medications: Docusate Sodium (Dok) 100 Mg Capsule 100 MG PO BID for 30 Days, CAP Folic Acid (Folic Acid) 1 Mg Tablet 1 MG PO DAILY, #30 TAB Hydrocodone Bit/Acetaminophen (Hydrocodone/Acetaminophen 5/325mg Tablet) 1 Tab Tab 1 TAB PO Q4H PRN for PAIN-MODERATE (5-7), #30 TAB Mirtazapine (Mirtazapine) 15 Mg Tab.rapdis 15 MG PO HS, #30 TAB Nystatin (Nystatin) 15 Gm Cream..g. 0 GM TP BID, #1 TUBE Vancomycin HCl in Water (Vancomycin 1,750 mg/17.5 ml Vl) 1.75 Gm/17.5 Ml Vial 1.75 GM IV DAILY, #56 VIAL Continued Medications: Digoxin (Digoxin) 125 Mcg Tablet 125 MCG PO DAILY, TAB Diltiazem HCl (Cartia Xt) 240 Mg Cap.er.24h 240 MG PO DAILY, CAP Furosemide (Lasix) 20 Mg Tablet 20 MG PO DAILY, TAB Lisinopril (Lisinopril) 10 Mg Tablet 10 MG PO DAILY, TAB Pantoprazole Sodium (Protonix) 40 Mg Tablet.dr 40 MG PO DAILY, TAB Potassium Chloride (Potassium Chloride) 20 Meq Tablet.er 20 MEQ PO DAILY, TAB Pregabalin (Lyrica) 50 Mg Capsule 50 MG PO BID, CAP Rivaroxaban (Xarelto) 20 Mg Tablet 20 MG PO DAILY, TAB Discontinued Medications: Doxycycline Hyclate (Doxycycline Hyclate) 100 Mg Capsule 100 MG PO BID for 10 Days, CAP 10 DAY SUPPLY FILLED 09-21-19 Metformin HCl (Metformin HCl) 500 Mg Tablet 500 MG PO DAILY, TAB Miri Landeros Oct 06, 2019 11:25 MIRI LANDEROS DO Oct 06, 2019 11:26
[2019-10-06] MEDS ORDERED: VANCOMYCIN 1500 MG/NS 500 ML IVPB IV SCH ×2 (11:30)
--- NOTE | 2019-10-06 11:34 | Discharge Summary ---
Discharge Summary Hospital Course Was the Problem List Reviewed?: Yes Problems/Dx: (1) Wound of right foot Status: Acute (2) Type 2 diabetes mellitus Status: Chronic (3) Hyponatremia Status: Resolved (4) Generalized weakness (5) Intertrigo (6) Alcohol abuse Status: Chronic (7) Current smoker Status: Chronic Hospital Course Date of Admission: Oct 02, 2019 at 14:59 Admission Diagnosis : Family Physician/Provider: Mohamud Salas MD Date of Discharge: 10/06/19 Discharge Diagnosis: Left foot osteomyelitis, s/p partial left foot amputation Hospital Course: Hospital course: Pt had an uneventful hospital course for five days in swing bed after acute care due to osteomyelitis s/p amputation partially of the left foot. He did require Vancomycin maintained after picc line placed, he will have wound care maintained at intermediate. Overall prognosis remains guarded considering his severe comorbidities and difficulty ambulating. He will receive skilled therapy to strengthen and hopefully recover. Labs and Pending Lab Test: Laboratory Tests 10/05/19 15:45: Glucometer 164H 10/05/19 18:42: Vancomycin Level Trough 11.9 10/05/19 20:15: Glucometer 261H 10/06/19 05:00: White Blood Count 6.8, Red Blood Count 2.91L, Hemoglobin 9.3L, Hematocrit 28L, Mean Corpuscular Volume 96, Mean Corpuscular Hemoglobin 32, Mean Corpuscular Hemoglobin Concent 33, Red Cell Distribution Width 14.8H, Platelet Count 276, Mean Platelet Volume 9.8, Neutrophils (%) (Auto) 57, Lymphocytes (%) (Auto) 24, Monocytes (%) (Auto) 16H, Eosinophils (%) (Auto) 3, Basophils (%) (Auto) 1, Neutrophils # (Auto) 3.9, Lymphocytes # (Auto) 1.6, Monocytes # (Auto) 1.1H, Eosinophils # (Auto) 0.2, Basophils # (Auto) 0.0, Sodium Level 134L, Potassium Level 4.1, Chloride Level 103, Carbon Dioxide Level 24, Anion Gap 7, Blood Urea Nitrogen 8, Creatinine 0.76, Estimat Glomerular Filtration Rate > 60, BUN/Creatinine Ratio 11, Glucose Level 97, Calcium Level 8.5, Corrected Calcium 9.6, Total Bilirubin 0.4, Aspartate Amino Transf (AST/SGOT) 18, Alanine A minotransferase (ALT/SGPT) 14, Alkaline Phosphatase 136, Total Protein 6.5, Albumin 2.6L 10/06/19 05:18: Glucometer 117H Home Meds Active Dok (Docusate Sodium) 100 Mg Capsule 100 Mg PO BID 30 Days Folic Acid 1 Mg Tablet 1 Mg PO DAILY Nystatin 15 Gm Cream..g. 0 Gm TP BID Mirtazapine 15 Mg Tab.rapdis 15 Mg PO HS Hydrocodone/Acetaminophen 5/325mg Tablet (Acetaminophen/Hydrocodone Bitart) 1 Tab Tab 1 Tab PO Q4H PRN Vancomycin 1,750 mg/17.5 ml Vl (Vancomycin HCl in Water) 1.75 Gm/17.5 Ml Vial 1.75 Gm IV DAILY Reported Metformin HCl 500 Mg Tablet 500 Mg PO DAILY Doxycycline Hyclate 100 Mg Capsule 100 Mg PO BID 10 Days 10 DAY SUPPLY FILLED 09-21-19 Xarelto (Rivaroxaban) 20 Mg Tablet 20 Mg PO DAILY Cartia Xt (Diltiazem HCl) 240 Mg Cap.er.24h 240 Mg PO DAILY Protonix (Pantoprazole Sodium) 40 Mg Tablet.dr 40 Mg PO DAILY Lyrica (Pregabalin) 50 Mg Capsule 50 Mg PO BID Lasix (Furosemide) 20 Mg Tablet 20 Mg PO DAILY Potassium Chloride 20 Meq Tablet.er 20 Meq PO DAILY Lisinopril 10 Mg Tablet 10 Mg PO DAILY Digoxin 125 Mcg Tablet 125 Mcg PO DAILY Assessment/Pt Instructions [facility] 1 week [place] rounds Discharge Planning: <30 minutes discharge planning Discharge Physical Examination Vital Signs Vital Signs Date Time Temp Pulse Resp B/P (MAP) Pulse Ox O2 Delivery O2 Flow Rate FiO2 10/06/19 06:00 37.3 73 20 134/68 (90) 90 Nasal Cannula 2.00 General Appearance: No Apparent Distress, WD/WN, Chronically ill Allergies: Coded Allergies: No Known Drug Allergies (Unverified , 10/25/17) Discharge Summary Date of Admission Oct 02, 2019 at 14:59 Date of Discharge Discharge Date: Oct 06, 2019 Discharge Diagnosis Assessment: Toe amputation Osteomyelitis Yeast infection of penis and scrotum AF Hyponatremia OAC Plan: Monitor closely Diflucan Nystatin cream Monitor sodium level DC to [place] tomorrow? (1) Wound of right foot Status: Acute (2) Type 2 diabetes mellitus Status: Chronic (3) Hyponatremia Status: Resolved (4) Generalized weakness (5) Intertrigo (6) Alcohol abuse Status: Chronic (7) Current smoker Status: Chronic Clinical Quality Measures DVT/VTE Risk/Contraindication: Risk Factor Score Per Nursin REGAN GOMEZ DO Oct 06, 2019 11:34
[2019-10-06] MEDS: RT-ALBUTEROL SULF 2.5 MG/3 ML PRE-MIX VIAL INH SCH (14:01)
[2019-10-06 14:13] VITALS: BP 134/68
--- NOTE | 2019-10-06 15:51 | NUR ---
CM/SS finalized discharge plan. Plan: The patient is going skilled to [facility]. Transportation: Facility planned for a 2 p.m. continuous pickling line pickler helper time. DPOA: contacted Anuja to inform her of the patients discharge to facility. Summary: The patient is going to [facility]. The patient has been to the facility previously for wound care and did well. CM/SS set up a continuous pickling line pickler helper time for 2 p.m. today 10/06/19. The finalized orders have been faxed over to the facility and CM/SS received verbal confirmation. The patient will continue wound care at facility. Anita Vigil stated the wound vac is planned to be delivered to facility tomorrow. The patient stated he had all his needs met at this time.
[2019-10-07] MEDS ORDERED: VANCOMYCIN 1,750 MG/NS 500 ML IVPB IV SCH ×2 (11:30)
[2019-10-07] MEDS ORDERED: TROUGH ORDER-PHARMACY XX NR (18:30)
== END 2019-10-06 14:13 | DRG 560 ==
LOC: 4TH 14:59
PROVIDERS: ADMIT Family Medicine; ATTEND Internal Medicine
DX: Z47.81 Encounter for orthopedic aftercare following surgical amputation (principal); Z89.431 Acquired absence of right foot; Z89.421 Acquired absence of other right toe(s); E87.1 Hypo-osmolality and hyponatremia; B37.49 Other urogenital candidiasis; I50.32 Chronic diastolic (congestive) heart failure; J44.9 Chronic obstructive pulmonary disease, unspecified; I48.0 Paroxysmal atrial fibrillation; I34.0 Nonrheumatic mitral (valve) insufficiency; E11.69 Type 2 diabetes mellitus with other specified complication; F17.200 Nicotine dependence, unspecified, uncomplicated; F10.10 Alcohol abuse, uncomplicated; I73.9 Peripheral vascular disease, unspecified; K21.9 Gastro-esophageal reflux disease without esophagitis; F41.9 Anxiety disorder, unspecified; F32.9 Major depressive disorder, single episode, unspecified; L30.4 Erythema intertrigo; R53.1 Weakness; T50.2X5A Adverse effect of carbonic-anhydrase inhibitors, benzothiadiazides and other diuretics, initial encounter; Z79.01 Long term (current) use of anticoagulants; Z79.84 Long term (current) use of oral hypoglycemic drugs
CPT/HCPCS: 36415; 36569; 71045; 76937; 80048; 80053; 80202; 82962; 85025; 85027; 94640; 94760

== ENCOUNTER → 2019-10-20 | Outpatient (CLI) | payer MEDICARE ==
[~2019-10-20] MED LIST changes: +ACHD5005 PO; +DCS100C PO; +MIRT-47 PO; +[UNRECOGNIZED DRUG - CODE] IV
[2019-10-20 11:11] LABS: CREATININE SERUM 1.25 MG/DL (0.60-1.30); POTASSIUM 4.6 MMOL/L (3.6-5.0)
== END ==
LOC: LABNPT 10:48
PROVIDERS: ATTEND Internal Medicine
DX: M86.9 Osteomyelitis, unspecified (principal)
CPT/HCPCS: 80048; 80202

== ENCOUNTER → 2019-10-21 | Outpatient (CLI) | payer MEDICARE | LOC: LABNPT 12:42 | PROVIDERS: ATTEND Internal Medicine | DX: M86.9 Osteomyelitis, unspecified (principal) | CPT/HCPCS: 80202 ==

== ENCOUNTER → 2019-10-25 | Outpatient (CLI) | payer MEDICARE ==
[~2019-10-25] MED LIST changes: -HYDR-3812 PO
== END ==
LOC: LABNPT 14:11
PROVIDERS: ATTEND Urology
DX: Z01.89 Encounter for other specified special examinations (principal)
CPT/HCPCS: 80202

== ENCOUNTER 2019-10-28 13:19 | Emergency (ER) | payer MEDICARE ==
[~2019-10-28] VITALS: Ht 187 cm; Wt 98.0 kg
--- NOTE | 2019-10-28 13:35 | NUR ---
CALLED [facility] WHO STATES PT WAS NOT SUPPOSE TO COME THRU THE ER ET HE WAS TO GO TO THE LAB INSTEAD OF THE ER.
[2019-10-28 13:38] VITALS: BP 130/60
--- OUTSIDE RECORDS SUMMARY | 2019-11-02 06:39 | XMS REPORT | Continuity of Care Document ---
Author Organization Unknown Address Unknown Phone Unavailable Allergies Active Description Code Type Severity Reaction Onset Reported/Identified Relationship to Patient Clinical Status Yes No Known Drug Allergies [id number] Drug Allergy Unknown N/A 10/25/2017 Medications There [...] JAUNDICE 12/20/2017 DARYN ADAMS MD Ot Z79.01 [facility]IVING (CURRENT) USE OF ANTICOAGULANT 12/20/2017 DARYN ADAMS MD Ot Z79.84 SEN[facility]IVING (CURRENT) USE OF ORAL HYPOGLYC 12/20/2017 DARYN ADAMS MD, Ot Z79.899 OTHER COLLAR TURNER (CURRENT) DRUG THERAPY 12/23/2017 DARYN ADAMS MD, [...] JAUNDICE 12/23/2017 DARYN ADAMS MD Ot Z79.01 [facility] (CURRENT) USE OF ANTICOAGULANT 12/23/2017 DARYN ADAMS MD Ot Z79.84 SEN[facility] LIVING (CURRENT) USE OF ORAL HYPOGLYC 12/23/2017 DARYN ADAMS MD Ot Z79.899 OTHER SEN[facility]IVING (CURRENT) DRUG THERAPY 07/11/2018 GOMEZ DO REGAN [...] AL REGAN Ot Y92.19 3 BEDROOM IN [facility] RESIDENTIAL INSTITUTION A 07/11/2018 JASON AL REGAN Ot Z66 DO NOT RESUSCITATE 07/11/2018 JASON AL REGAN Ot Z79.01 COLLAR TURNER (CURRENT) USE OF ANTICOAGULANT 07/11/2018 JASON AL REGAN Ot Z79.84 COLLAR TURNER (CURRENT) USE OF ORAL HYPOGLYC 09/04/2018 AMY HEREDIA APRN Ot J18.9 PNEUMONIA, UNSPECIFIED ORGANISM 09/04/2018 AMY HEREDIA APRN Ot J44.9 CHRONIC OBSTRUCTIVE PULMONARY DISEASE, U 09/04/2018 AMY HEREDIA AIRCRAFT STRUCTURAL REPAIRER Ot J90 PLEURAL EFFUSION, NOT ELSEWHERE CLASSIFI 09/04/2018 AMY HEREDIA AIRCRAFT STRUCTURAL REPAIRER Ot J98.4 OTHER DISORDERS OF LUNG 09/09/2018 AMY HEREDIA AIRCRAFT STRUCTURAL REPAIRER Ot J18.9 PNEUMONIA, UNSPECIFIED ORGANISM 09/09/2018 AMY HEREDIA AIRCRAFT STRUCTURAL REPAIRER Ot J44.9 CHRONIC OBSTRUCTIVE PULMONARY DISEASE, U 09/09/2018 AMY EHREDIA AIRCRAFT STRUCTURAL REPAIRER Ot J90 PLEURAL EFFUSION, NOT ELSEWHERE CLASSIFI 09/09/2018 AMY HEREDIA AIRCRAFT STRUCTURAL REPAIRER Ot J98.4 OTHER DISORDERS OF LUNG 09/22/2018 AMY HEREDIA AIRCRAFT STRUCTURAL REPAIRER Ot J18.9 PNEUMONIA, UNSPECIFIED ORGANISM 09/22/2018 AMY HEREDIA AIRCRAFT STRUCTURAL REPAIRER Ot J44.9 CHRONIC OBSTRUCTIVE PULMONARY DISEASE, U 09/22/2018 AMY HEREDIA AIRCRAFT STRUCTURAL REPAIRER Ot J90 PLEURAL EFFUSION, NOT ELSEWHERE CLASSIFI 09/22/2018 AMY HEREDIA AIRCRAFT STRUCTURAL REPAIRER Ot J98.4 OTHER DISORDERS OF LUNG 12/09/2018 GERRY GILL, MALISSA K Ot 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 12/09/2018 TOMÁS GARRETT MDJ K Ot N18.9 CHRONIC KIDNEY DISEASE, UNSPECIFIED 12/22/2018 MNIDY GARRETT MDKAJ K Ot 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 12/22/2018 MALISSA GARRETT MD K Ot N18.9 CHRONIC KIDNEY DISEASE, UNSPECIFIED 01/07/2019 MALISSA GARRETT MD K Ot 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 01/07/2019 MINDY GARRETT MDKAJ K Ot N18.9 CHRONIC KIDNEY DISEASE, UNSPECIFIED 05/04/2019 MINDY GARRETT MDKAJ K Ot 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 05/04/2019 MALISSA GARRETT MD K Ot N18.9 CHRONIC KIDNEY DISEASE, UNSPECIFIED 05/25/2019 AMY HEREDIA AIRCRAFT STRUCTURAL REPAIRER Ot J18.9 PNEUMONIA, UNSPECIFIED ORGANISM 05/25/2019 AMY HEREDIA AIRCRAFT STRUCTURAL REPAIRER Ot J44.9 CHRONIC OBSTRUCTIVE PULMONARY DISEASE, U 05/25/2019 AMY HEREDIA AIRCRAFT STRUCTURAL REPAIRER Ot J90 PLEURAL EFFUSION, NOT ELSEWHERE CLASSIFI 05/25/2019 AMY HEREDIA APRN Ot J98.4 OTHER DISORDERS OF LUNG 05/25/2019 MALISSA GARRETT MD Ot 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 06/05/2019 MALISSA GARRETT MD Ot N18.9 CHRONIC KIDNEY DISEASE, UNSPECIFIED 06/10/2019 ERAN BURTON MD, Ot E11.42 TYPE 2 DIABETES MELLITUS WITH DIABETIC P 06/10/2019 ERAN BURTON MD, Ot 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 PERIPHERAL AN 06/10/2019 ERAN BURTON MD, Ot E11.621 TYPE 2 DIABETES MELLITUS WITH FOOT ULCER 06/10/2019 ERAN BURTON MD, Ot I70.261 ATHSCL [place] ARTERIES OF EXTREMITIES W 06/10/2019 ERAN BURTON [...] 06/14/2019 ERAN BURTON MD Ot I70.261 ATHSCL [place] ARTERIES OF EXTREMITIES W 06/14/2019 ERAN BURTON [...] 06/18/2019 ERAN BURTON MD Ot I70.235 ATHSCL [place] ARTERIES OF RIGHT LEG W UL 06/18/2019 [...] 06/26/2019 ERAN BURTON MD, Ot I70.235 ATHSCL [place] ARTERIES OF RIGHT LEG W UL 06/26/2019 [...] 07/02/2019 ERAN BURTON MD, Ot I70.235 ATHSCL [place] ARTERIES OF RIGHT LEG W UL 07/02/2019 [...] 07/16/2019 ERAN BURTON MD, Ot I70.235 ATHSCL [place] ARTERIES OF RIGHT LEG W UL 07/16/2019 [...] 07/20/2019 ERAN BURTON MD, Ot I70.235 ATHSCL [place] ARTERIES OF RIGHT LEG W UL 07/20/2019 [...] 08/24/2019 ERAN BURTON MD, Ot I70.235 ATHSCL [place] ARTERIES OF RIGHT LEG W UL 08/24/2019 ERAN BURTON MD, Ot I89 .0 LYMPHEDEMA, NOT ELSEWHERE CLASSIFIED 08/24/2019 ERAN BURTON MD, Ot L97.512 NON-PRS CHRONIC ULCER OTH PRT RIGHT FOOT 09/21/2019 ROVENSTINE DO, LUIS López Ot D64.9 ANEMIA, UNSPECIFIED 09/21/2019 ROVENSTINE DO, LUIS López Ot E08.621 DIABETES MELLITUS DUE TO UNDERLYING COND 09/21/2019 ROVENSTINE DO, LUIS López Ot F32.9 MAJOR DEPRESSIVE DISORDER, SINGLE EPISOD 09/21/2019 ROVENSTINE DO, LUIS López Ot F41.9 ANXIETY DISORDER, UNSPECIFIED 09/21/2019 ROVENSTINE DO, LUIS López Ot I11.0 HYPERTENSIVE HEART DISEASE WITH HEART FA 09/21/2019 ROVENSTINE DO, LUIS López Ot I48.91 UNSPECIFIED ATRIAL FIBRILLATION 09/21/2019 ROVENSTINE DO, LUIS López Ot I50.9 HEART FAILURE, UNSPECIFIED 09/21/2019 ROVENSTINE DO, LUIS López Ot K21.9 GASTRO-ESOPHAGEAL REFLUX DISEASE WITHOUT 09/21/2019 ROVENSTINE DO, LUIS López Ot L03.115 CELLULITIS OF RIGHT LOWER LIMB 09/21/2019 ROVENSTINE DO, LUIS López Ot L97.519 NON-PRS CHRONIC ULCER OTH PRT RIGHT FOOT 09/21/2019 ROVENSTINE DO, LUIS Maribel Ot Z77.22 CNTCT W AND EXPSR TO ENVIRON TOBACCO SMO 09/21/2019 ROVENSTINE DO, LUIS L Ot Z79.01 SENIOR LIVING (CURRENT) USE OF ANTICOAGULANT 09/21/2019 ROVENSTINE DO, LUIS López Ot Z79.4 COLLAR TURNER (CURRENT) USE OF INSULIN 09/21/2019 ROVENSTINE DO, LUIS López Ot Z80.43 FAMILY HISTORY OF MALIGNANT NEOPLASM OF 09/23/2019 ROVENSTINE DO, LUIS López Ot D64.9 ANEMIA, UNSPECIFIED 09/23/2019 ROVENSTINE DO, LUIS López Ot E08.621 DIABETES MELLITUS DUE TO UNDERLYING COND 09/23/2019 ROVENSTINE DO, LUIS López Ot F32.9 MAJOR DEPRESSIVE DISORDER, SINGLE EPISOD 09/23/2019 ROVENSTINE DO, LUIS López Ot F41.9 ANXIETY DISORDER, UNSPECIFIED 09/23/2019 ROVENSTINE DO, LUIS López Ot I11.0 HYPERTENSIVE HEART DISEASE WITH HEART FA 09/23/2019 ROVENSTINE DO, LUIS L Ot I48.91 UNSPECIFIED ATRIAL FIBRILLATION 09/23/2019 ROVENSTINE DO, LUIS López Ot I50.9 HEART FAILURE, UNSPECIFIED 09/23/2019 ROVENSTINE DO, LUIS López Ot K21.9 GASTRO-ESOPHAGEAL REFLUX DISEASE WITHOUT 09/23/2019 ROVENSTINE DO, LUIS L Ot L03.115 CELLULITIS OF RIGHT LOWER LIMB 09/23/2019 ROVENSTINE DO, LUIS López Ot L97.519 NON-PRS CHRONIC ULCER OTH PRT RIGHT FOOT 09/23/2019 ROVENSTINE DO, LUIS López Ot Z77.22 CNTCT W AND EXPSR TO ENVIRON TOBACCO SMO 09/23/2019 ROVENSTINE DO, LUIS L Ot Z79.01 COLLAR TURNER (CURRENT) USE OF ANTICOAGULANT 09/23/2019 ROVENSTINE DO, LUIS López Ot Z79.4 COLLAR TURNER (CURRENT) USE OF INSULIN 09/23/2019 ROVENSTINE DO, LUIS López Ot Z80.43 FAMILY HISTORY OF MALIGNANT NEOPLASM OF 09/26/2019 GERRY GILL, MALISSA Herrmann Ot I83.209 VARICOS VN UNSP LOW EXTRM [...] MELLITUS WITH OTHER SPEC 10/01/2019 AUSTEN DARBY MD Ot E87 .1 HYPO-OSMOLALITY AND HYPONATREMIA 10/01/2019 AUSTEN DARBY MD, Ot F17.290 NICOTINE DEPENDENCE, OTHER TOBACCO PRODU 10/01/2019 AUSTEN DARBY MD, Ot F32 .9 MAJOR DEPRESSIVE DISORDER, SINGLE EPISOD 10/01/2019 AUSTEN DARBY MD, Ot F41 .9 ANXIETY DISORDER, UNSPECIFIED 10/01/2019 AUSTEN DARBY MD Ot I11 .0 HYPERTENSIVE HEART DISEASE WITH HEART FA 10/01/2019 AUSTEN DARBY MD Ot I42 .9 CARDIOMYOPATHY, UNSPECIFIED 10/01/2019 AUSTEN DARBY MD Ot I48.91 UNSPECIFIED ATRIAL FIBRILLATION 10/01/2019 AUSTEN DARBY MD, Ot I50 .9 HEART FAILURE, UNSPECIFIED 10/01/2019 AUSTEN DARBY MD Ot I87 .2 VENOUS INSUFFICIENCY (CHRONIC) (PERIPHER 10/01/2019 AUSTEN DARBY MD Ot K21 .9 GASTRO-ESOPHAGEAL REFLUX DISEASE WITHOUT 10/01/2019 AUSTEN DARBY MD Ot K75 .9 INFLAMMATORY LIVER DISEASE, UNSPECIFIED 10/01/2019 AUSTEN DARBY MD Ot L97.414 NON-PRS CHR ULCER OF RIGHT HEEL AND MIDF 10/01/2019 AUSTEN DARBY MD Ot L97.514 NON-PRS CHRONIC ULCER OTH PRT RIGHT FOOT 10/01/2019 AUSTEN DARBY MD Ot M86 .9 OSTEOMYELITIS, UNSPECIFIED 10/01/2019 AUSTEN DARBY MD Ot R01 .1 CARDIAC MURMUR, UNSPECIFIED 10/01/2019 AUSTEN DARBY MD Ot Z79.84 COLLAR TURNER (CURRENT) USE OF ORAL HYPOGLYC 10/01/2019 AUSTEN DARBY MD, Ot Z87.440 PERSONAL HISTORY OF URINARY (TRACT) INFE 10/02/2019 AUSTEN DARBY MD, Ot E11.42 TYPE 2 DIABETES MELLITUS WITH DIABETIC P 10/02/2019 AUSTEN DARBY MD, Ot E11.610 TYPE 2 DIABETES MELLITUS W DIABETIC NEUR 10/02/2019 AUSTEN DARBY MD, Ot E11.621 TYPE 2 DIABETES MELLITUS WITH FOOT ULCER 10/02/2019 AUSTEN DARBY MD, Ot E11.69 TYPE 2 DIABETES MELLITUS WITH OTHER SPEC 10/02/2019 AUSTEN DARBY MD, Ot E87 .1 HYPO-OSMOLALITY AND HYPONATREMIA 10/02/2019 AUSTEN DARBY MD, Ot F17.290 NICOTINE DEPENDENCE, OTHER TOBACCO PRODU 10/02/2019 AUSTEN DARBY MD, Ot F32 .9 MAJOR DEPRESSIVE DISORDER, SINGLE EPISOD 10/02/2019 AUSTEN DARBY MD, Ot F41 .9 ANXIETY DISORDER, UNSPECIFIED 10/02/2019 AUSTEN DARBY MD Ot I11 .0 HYPERTENSIVE HEART DISEASE WITH HEART FA 10/02/2019 AUSTEN DARBY MD, Ot I42 .9 CARDIOMYOPATHY, UNSPECIFIED 10/02/2019 AUSTEN DARBY MD, Ot I48 .0 PAROXYSMAL ATRIAL FIBRILLATION 10/02/2019 AUSTEN DARBY MD, Ot I50.32 CHRONIC DIASTOLIC (CONGESTIVE) HEART CANDELARIO 10/02/2019 AUSTEN DARBY MD, Ot I87 .2 VENOUS INSUFFICIENCY (CHRONIC) (PERIPHER 10/02/2019 AUSTEN DARBY MD, Ot J44 .9 CHRONIC OBSTRUCTIVE PULMONARY DISEASE, U 10/02/2019 AUSTEN DARBY MD, Ot K21 .9 GASTRO-ESOPHAGEAL REFLUX DISEASE WITHOUT 10/02/2019 AUSTEN DARBY MD Ot K75 .9 INFLAMMATORY LIVER DISEASE, UNSPECIFIED 10/02/2019 AUSTEN DARBY MD, Ot L97.414 NON-PRS CHR ULCER OF RIGHT HEEL AND MIDF 10/02/2019 AUSTEN DARBY MD Ot L97.514 NON-PRS CHRONIC ULCER OTH PRT RIGHT FOOT 10/02/2019 AUSTEN DARBY MD Ot M86.8X7 OTHER OSTEOMYELITIS, ANKLE AND FOOT 10/02/2019 AUSTEN DARBY MD Ot R01 .1 CARDIAC MURMUR, UNSPECIFIED 10/02/2019 AUSTEN DARBY MD Ot Z79.84 SENIOR LIVING (CURRENT) USE OF ORAL HYPOGLYC 10/02/2019 AUSTEN DARBY MD Ot Z87.440 PERSONAL HISTORY OF URINARY (TRACT) INFE 10/06/2019 JASON AL, REGAN Ot B37.49 OTHER UROGENITAL CANDIDIASIS 10/06/2019 JASON AL REGAN Ot E11.69 TYPE 2 DIABETES MELLITUS WITH OTHER SPEC 10/06/2019 JASON AL, REGAN Ot E87.1 HYPO-OSMOLALITY AND HYPONATREMIA 10/06/2019 JASON AL, REGAN Ot F10.10 ALCOHOL ABUSE, UNCOMPLICATED 10/06/2019 JASON AL REGAN Ot F17.20 0 NICOTINE DEPENDENCE, UNSPECIFIED, UNCOMP 10/06/2019 JASON AL REGAN Ot F32.9 MAJOR DEPRESSIVE DISORDER, SINGLE EPISOD 10/06/2019 JASON AL REGAN Ot F41.9 ANXIETY DISORDER, UNSPECIFIED 10/06/2019 JASON AL REGAN Ot I34.0 NONRHEUMATIC MITRAL (VALVE) INSUFFICIENC 10/06/2019 JASON AL, REGAN Ot I48.0 PAROXYSMAL ATRIAL FIBRILLATION 10/06/2019 JASON AL, REGAN Ot I50.32 CHRONIC DIASTOLIC (CONGESTIVE) HEART CANDELARIO 10/06/2019 JASON AL, REGAN Ot I73.9 PERIPHERAL VASCULAR DISEASE, UNSPECIFIED 10/06/2019 JASON AL REGAN Ot J44.9 CHRONIC OBSTRUCTIVE PULMONARY DISEASE, U 10/06/2019 JASON AL REGAN Ot K21.9 GASTRO-ESOPHAGEAL REFLUX DISEASE WITHOUT 10/06/2019 JASON AL REGAN Ot T50.2X 5A ADVRS EFF OF CRBNC-ANHYDR INHIBTR, BENZO 10/06/2019 JASON AL REGAN Ot Z47.81 ENCOUNTER FOR ORTHOPEDIC AFTERCARE FOLLO 10/06/2019 JASON AL REGAN Ot Z79.01 COLLAR TURNER (CURRENT) USE OF ANTICOAGULANT 10/06/2019 JASON AL REGAN Ot Z89.42 1 ACQUIRED ABSENCE OF OTHER RIGHT TOE(S) 10/06/2019 JASON AL REGAN Ot Z89.43 1 ACQUIRED ABSENCE OF RIGHT FOOT 10/06/2019 GOMEZ DO, REGAN Ot B37.49 OTHER UROGENITAL CANDIDIASIS 10/06/2019 JASON AL, REGAN Ot E11.69 TYPE 2 DIABETES MELLITUS WITH OTHER SPEC 10/06/2019 JASON DO, REGAN Ot E87.1 HYPO-OSMOLALITY AND HYPONATREMIA 10/06/2019 GOMEZ DO, REGAN Ot F10.10 ALCOHOL ABUSE, UNCOMPLICATED 10/06/2019 GOMEZ DO, REGAN Ot F17.20 0 NICOTINE DEPENDENCE, UNSPECIFIED, UNCOMP 10/06/2019 GOMEZ DO, REGAN Ot F32.9 MAJOR DEPRESSIVE DISORDER, SINGLE EPISOD 10/06/2019 GOMEZ DO, REGAN Ot F41.9 ANXIETY DISORDER, UNSPECIFIED 10/06/2019 GOMEZ DO, REGAN Ot I34.0 NONRHEUMATIC MITRAL (VALVE) INSUFFICIENC 10/06/2019 GOMEZ DO, REGAN Ot I48.0 PAROXYSMAL ATRIAL FIBRILLATION 10/06/2019 GOMEZ DO, REGAN Ot I50.32 CHRONIC DIASTOLIC (CONGESTIVE) HEART CANDELARIO 10/06/2019 JASON AL, REGAN Ot I73.9 PERIPHERAL VASCULAR DISEASE, UNSPECIFIED 10/06/2019 JASON AL, REGAN Ot J44.9 CHRONIC OBSTRUCTIVE PULMONARY DISEASE, U 10/06/2019 JASON AL, REGAN Ot K21.9 GASTRO-ESOPHAGEAL REFLUX DISEASE WITHOUT 10/06/2019 JASON AL, REGAN Ot 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 10/06/2019 JASON AL REGAN Ot R53.1 WEAKNESS 10/06/2019 JASON AL, REGAN Ot T50.2X 5A ADVRS EFF OF CRBNC-ANHYDR INHIBTR, BENZO 10/06/2019 JASON AL REGAN Ot Z47.81 ENCOUNTER FOR ORTHOPEDIC AFTERCARE FOLLO 10/06/2019 JASON AL REGAN Ot Z79.01 COLLAR TURNER (CURRENT) USE OF ANTICOAGULANT 10/06/2019 JASON AL REGAN Ot Z79.84 COLLAR TURNER (CURRENT) USE OF ORAL HYPOGLYC 10/06/2019 JASON AL REGAN Ot Z89.42 1 ACQUIRED ABSENCE OF OTHER RIGHT TOE(S) 10/06/2019 JASON AL REGAN Ot Z89.43 1 ACQUIRED ABSENCE OF RIGHT FOOT 10/06/2019 JASON AL REGAN Ot B37.49 OTHER UROGENITAL CANDIDIASIS 10/06/2019 GOMEZ DO, REGAN Ot E11.69 TYPE 2 DIABETES MELLITUS WITH OTHER SPEC 10/06/2019 GOMEZ DO, REGAN Ot E87.1 HYPO-OSMOLALITY AND HYPONATREMIA 10/06/2019 GOMEZ DO, REGAN Ot F10.10 ALCOHOL ABUSE, UNCOMPLICATED 10/06/2019 GOMEZ DO, REGAN Ot F17.20 0 NICOTINE DEPENDENCE, UNSPECIFIED, UNCOMP 10/06/2019 GOMEZ DO, REGAN Ot F32.9 MAJOR DEPRESSIVE DISORDER, SINGLE EPISOD 10/06/2019 GOMEZ DO, REGAN Ot F41.9 ANXIETY DISORDER, UNSPECIFIED 10/06/2019 GOMEZ DO, REGAN Ot I34.0 NONRHEUMATIC MITRAL (VALVE) INSUFFICIENC 10/06/2019 GOMEZ DO, REGAN Ot I48.0 PAROXYSMAL ATRIAL FIBRILLATION 10/06/2019 GOMEZ DO, REGAN Ot I50.32 CHRONIC DIASTOLIC (CONGESTIVE) HEART CANDELARIO 10/06/2019 GOMEZ DO, REGAN Ot I73.9 PERIPHERAL VASCULAR DISEASE, UNSPECIFIED 10/06/2019 JASON AL REGAN Ot J44.9 CHRONIC OBSTRUCTIVE PULMONARY DISEASE, U 10/06/2019 GOMEZ , REGAN Ot K21.9 GASTRO-ESOPHAGEAL REFLUX DISEASE WITHOUT 10/06/2019 GOMEZ , REGAN Ot T50.2X 5A ADVRS EFF OF CRBNC-ANHYDR INHIBTR, BENZO 10/06/2019 JASON AL REGAN Ot Z47.81 ENCOUNTER FOR ORTHOPEDIC AFTERCARE FOLLO 10/06/2019 JASON AL REGAN Ot Z79.01 SENIOR LIVING (CURRENT) USE OF ANTICOAGULANT 10/06/2019 JASON AL REGAN Ot Z89.42 1 ACQUIRED ABSENCE OF OTHER RIGHT TOE(S) 10/06/2019 JASON AL REGAN Ot Z89.43 1 ACQUIRED ABSENCE OF RIGHT FOOT 10/19/2019 GERRY GILL, MALISSA Herrmann Ot 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 10/21/2019 AMY HEREDIA APRN Ot J18.9 PNEUMONIA, UNSPECIFIED ORGANISM 10/21/2019 AMY HEREDIA APRN Ot J44.9 CHRONIC OBSTRUCTIVE PULMONARY DISEASE, U 10/21/2019 AMY HEREDIA APRN Ot J90 PLEURAL EFFUSION, NOT ELSEWHERE CLASSIFI 10/21/2019 AMY HEREDIA APRN Ot J98.4 OTHER DISORDERS OF LUNG 10/21/2019 MALISSA GARRETT MD Ot 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 10/21/2019 GERRY GILL, MALISSA Herrmann Ot N18.9 CHRONIC KIDNEY DISEASE, UNSPECIFIED 10/21/2019 ERAN BURTON MD, Ot E11.42 TYPE 2 DIABETES MELLITUS WITH DIABETIC P 10/21/2019 ERAN BURTON MD Ot 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 PERIPHERAL AN 10/21/2019 ERAN BURTON MD, Ot E11.621 TYPE 2 DIABETES MELLITUS WITH FOOT ULCER 10/21/2019 ERAN BURTON MD Ot I70.261 ATHSCL [place] ARTERIES OF EXTREMITIES W 10/21/2019 ERAN BURTON MD, Ot I89 .0 LYMPHEDEMA, NOT ELSEWHERE CLASSIFIED 10/21/2019 ERAN BURTON MD, Ot L97.512 NON-PRS CHRONIC ULCER OTH PRT RIGHT FOOT 10/21/2019 ERAN BURTON MD Ot E11.42 TYPE 2 DIABETES MELLITUS WITH DIABETIC P 10/21/2019 ERAN BURTON MD Ot 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 PERIPHERAL AN 10/21/2019 ERAN BURTON MD, Ot E11.621 TYPE 2 DIABETES MELLITUS WITH FOOT ULCER 10/21/2019 ERAN BURTON MD Ot I70.235 ATHSCL [place] ARTERIES OF RIGHT LEG W UL 10/21/2019 ERAN BURTON MD, Ot I89 .0 LYMPHEDEMA, NOT ELSEWHERE CLASSIFIED 10/21/2019 ERAN BURTON MD Ot L97.512 NON-PRS CHRONIC ULCER OTH PRT RIGHT FOOT 10/21/2019 ERAN BURTON MD Ot E11.42 TYPE 2 DIABETES MELLITUS WITH DIABETIC P 10/21/2019 ERAN BURTON MD Ot 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 PERIPHERAL AN 10/21/2019 ERAN BURTON MD Ot E11.621 TYPE 2 DIABETES MELLITUS WITH FOOT ULCER 10/21/2019 ERAN BURTON MD Ot I70.235 ATHSCL [place] ARTERIES OF RIGHT LEG W UL 10/21/2019 ERAN BURTON MD Ot I89 .0 LYMPHEDEMA, NOT ELSEWHERE CLASSIFIED 10/21/2019 ERAN BURTON MD Ot L97.512 NON-PRS CHRONIC ULCER OTH PRT RIGHT FOOT 10/21/2019 ERAN BURTON MD Ot E11.42 TYPE 2 DIABETES MELLITUS WITH DIABETIC P 10/21/2019 ERAN BURTON MD Ot 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 PERIPHERAL AN 10/21/2019 ERAN BURTON MD, Ot E11.621 TYPE 2 DIABETES MELLITUS WITH FOOT ULCER 10/21/2019 ERAN BURTON MD Ot I70.235 ATHSCL [place] ARTERIES OF RIGHT LEG W UL 10/21/2019 ERAN BURTON MD, Ot I89 .0 LYMPHEDEMA, NOT ELSEWHERE CLASSIFIED 10/21/2019 ERAN BURTON MD, Ot L97.512 NON-PRS CHRONIC ULCER OTH PRT RIGHT FOOT 10/21/2019 ERAN BURTON MD, Ot E11.42 TYPE 2 DIABETES MELLITUS WITH DIABETIC P 10/21/2019 ERAN BURTON MD, Ot 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 PERIPHERAL AN 10/21/2019 ERAN BURTON MD, Ot E11.621 TYPE 2 DIABETES MELLITUS WITH FOOT ULCER 10/21/2019 ERAN BURTON MD Ot I70.235 ATHSCL [place] ARTERIES OF RIGHT LEG W UL 10/21/2019 ERAN BURTON MD Ot I89 .0 LYMPHEDEMA, NOT ELSEWHERE CLASSIFIED 10/21/2019 ERAN BURTON MD Ot L97.512 NON-PRS CHRONIC ULCER OTH PRT RIGHT FOOT 10/21/2019 GERRY GILL, MALISSA Herrmann Ot 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 10/22/2019 NEAL GILL, LATASHA Quezada Ot M86 .9 OSTEOMYELITIS, UNSPECIFIED 10/27/2019 LATASHA DE JESUS MD, Ot M86 .9 OSTEOMYELITIS, UNSPECIFIED 10/30/2019 NEAL GILL, LATASHA Quezada Ot Z01.89 ENCOUNTER FOR OTHER SPECIFIED SPECIAL EX Procedures Code Description Performed By Per formed On [id number] DE TACHMENT AT LEFT FOOT, PARTIAL 5TH RAY 09/30/2019 Results Test Result Range Gram stain microscopy - 10/25/17 13:40 GRAM STAIN RESULT FEW GRAM POSITIVE RODS NRG Bacteria identification in wound by cult ure - 10/25/17 13:40 Bacteria identification in wound by culture [id number] NRG FREE TEXT EXTERNAL SLOW GROWING [...] 7-25 CREATININE 0.76 mg/dL 0.70-1.18 eGFR NON-AFR. BAHRAINI 91 mL/min/1.73m2 > OR = 60 eGFR [...] protein measurement (mass/v olume) 2.04 mg/dL 0.00-0.50 [id number] - 05/25/19 14:25 [id number] 0.75 ng/mL 0.80-2.00 Bacterial blood culture - [...] 16:30 Bacteria identification in wound by culture [id number] NR FREE TEXT EXTERNAL SUSCEPTIBILITY REPORTED 10/01 9:2 5 NRG QUANTITY OF GROWTH Rare NRG FREE TEXT ENTRY 2 PRESUMPTIVE MRSA; SCREENING AT NR FREE TEXT ENTRY 3 VCP 10/01/19 9:00. CALLED TO BUD SANDS NRG PBP2 10/01/19 9:00 BY , WILL REPORT TO RN NRG Bacterial blood culture - 09/28/19 16:30 Bacterial blood culture NG NRG Dirithromycin susceptibility test by dis k [...] g/dL 3.2-4.5 CALCIUM CORRECTED 9.6 mg/dL 8.5-10.1 [id number] - 09/29/19 06:21 [id number] 273 % 280-300 Capillary blood glucose measurement by g lucometer (mass/volume) - 09/29/19 11:16 Capillary blood glucose measurement by glucometer (mas s/volume) 117 mg/dL 70-110 Capillary blood glucose measurement by g lucometer (mass/volume) - 09/29/19 16:24 Capillary blood glucose measurement by glucometer (mas s/volume) 151 mg/dL 70-110 Urine osmolality - 09/29/19 19:00 Urine osmolality 390 % 250-1200 SODIUM URINE RANDOM - 09/29/19 19:00 [id number] 90 % NRG CHLORIDE URINE RANDOM - [...] by glucometer (mas s/volume) 185 mg/dL 70-110 Capillary blood glucose measurement by g lucometer (mass/volume) - 10/02/19 20:22 Capillary blood glucose measurement by glucometer (mas s/volume) 157 mg/dL 70-110 Capillary blood glucose measurement by g lucometer (mass/volume) - 10/03/19 05:40 Capillary blood glucose measurement by glucometer (mas s/volume) 141 mg/dL 70-110 Automated blood complete blood count (he mogram) panel - 10/03/19 06:15 Blood leukocytes automated count (number/volume) 6.9 10*3/uL 4.3-11.0 Blood erythrocytes automated count (number/volume) 2.98 10*6/uL 4.35-5.85 Venous blood hemoglobin measurement (mass/volume) 9.3 g/dL 13.3-17.7 Blood hematocrit (volume fraction) 28 % 40-54 Automated erythrocyte mean corpuscular volume 95 [ foz_us] 80-99 Automated erythrocyte mean corpuscular h emoglobin (mass per erythrocyte) 31 pg 25-34 Automated erythrocyte mean corpuscular h emoglobin concentration measurement (mass/volume) 33 g/dL 32-36 Automated erythrocyte distribution width ratio 14. 5 % 10.0- 14.5 Automated blood platelet count (count/volume) 232 10*3/uL 130-400 Automated blood platelet mean volume measurement 10.0 [foz_us] 7.4-10.4 Whole blood basic metabolic panel - 04/14 06:15 Serum or plasma sodium measurement (moles/volume) 130 mmol/L 135-145 Serum or plasma potassium measurement (moles/volume) 4.3 mmol/L 3.6-5.0 Serum or plasma chloride measurement (moles/volume) 101 mmol/L 98-107 Carbon dioxide 23 mmol/L 21-32 Serum or plasma anion gap determination (moles/volume) 6 mmol/L 5-14 Serum or plasma urea nitrogen measurement (mass/volume ) 9 mg/dL 7-18 Serum or plasma creatinine measurement (mass/volume) 0.69 mg/dL 0.60-1.30 Serum or plasma urea nitrogen/creatinine mass ratio 13 NRG Serum or plasma creatinine measurement w ith calculation of estimated glomerular filtration rate > NRG Serum or plasma glucose measurement (mass/volume) 107 mg/dL 70-105 Serum or plasma calcium measurement (mass/volume) 8.2 mg/dL 8.5-10.1 Capillary blood glucose measurement by g lucometer (mass/volume) - 10/03/19 11:21 Capillary blood glucose measurement by glucometer (mas s/volume) 134 mg/dL 70-110 Capillary blood glucose measurement by g lucometer (mass/volume) - 10/03/19 16:12 Capillary blood glucose measurement by glucometer (mas s/volume) 158 mg/dL 70-110 Capillary blood glucose measurement by g lucometer (mass/volume) - 10/03/19 20:02 Capillary blood glucose measurement by glucometer (mas s/volume) 201 mg/dL 70-110 Capillary blood glucose measurement by g lucometer (mass/volume) - 10/04/19 05:22 Capillary blood glucose measurement by glucometer (mas s/volume) 76 mg/dL 70-110 Complete blood count (CBC) with automate d white blood cell (WBC) differential - 10/04/19 06:29 Blood leukocytes automated count (number/volume) 6.6 10*3/uL 4.3-11.0 Blood erythrocytes automated count (number/volume) 3.00 10*6/uL 4.35-5.85 Venous blood hemoglobin measurement (mass/volume) 9.6 g/dL 13.3-17.7 Blood hematocrit (volume fraction) 29 % 40-54 Automated erythrocyte mean corpuscular volume 97 [ foz_us] 80-99 Automated erythrocyte mean corpuscular h emoglobin (mass per erythrocyte) 32 pg 25-34 Automated erythrocyte mean corpuscular h emoglobin concentration measurement (mass/volume) 33 g/dL 32-36 Automated erythrocyte distribution width ratio 14. 6 % 10.0- 14.5 Automated blood platelet count (count/volume) 215 10*3/uL 130-400 Automated blood platelet mean volume measurement 9.7 [foz_us] 7.4-10.4 Automated blood neutrophils/100 leukocytes 64 % 42-75 Automated blood lymphocytes/100 leukocytes 22 % 12-44 Blood monocytes/100 leukocytes 10 % 0-12 Automated blood eosinophils/100 leukocytes 3 % 0-10 Automated blood basophils/100 leukocytes 1 % 0-10 Blood neutrophils automated count (number/volume) 4.2 10*3 1.8-7.8 Blood lymphocytes automated count (number/volume) 1.5 10*3 1.0-4.0 Blood monocytes automated count (number/volume) 0. 6 10*3 0.0-1.0 Automated eosinophil count 0.2 10*3/uL 0 .0-0.3 Automated blood basophil count (count/volume) 0.1 10*3/uL 0.0-0.1 Comprehensive metabolic panel - 10/04/19 06:29 Serum or plasma sodium measurement (moles/volume) 133 mmol/L 135-145 Serum or plasma potassium measurement (moles/volume) 4.2 mmol/L 3.6-5.0 Serum or plasma chloride measurement (moles/volume) 103 mmol/L 98-107 Carbon dioxide 22 mmol/L 21-32 Serum or plasma anion gap determination (moles/volume) 8 mmol/L 5-14 Serum or plasma urea nitrogen measurement (mass/volume ) 10 mg/dL 7-18 Serum or plasma creatinine measurement (mass/volume) 0.70 mg/dL 0.60-1.30 Serum or plasma urea nitrogen/creatinine mass ratio 14 NRG Serum or plasma creatinine measurement w ith calculation of estimated glomerular filtration rate > NRG Serum or plasma glucose measurement (mass/volume) 72 mg/dL 70-105 Serum or plasma calcium measurement (mass/volume) 8.3 mg/dL 8.5-10.1 Serum or plasma total bilirubin measurement (mass/volu me) 0.4 mg/dL 0.1-1.0 Serum or plasma alkaline phosphatase chucky surement (enzymatic activity/volume) 133 U/L 40-136 Serum or plasma aspartate aminotransfera se measurement (enzymatic activity/volume) 21 U/L 5-34 Serum or plasma alanine aminotransferase measurement (enzymatic activity/volume) 15 U/L 0-55 Serum or plasma protein measurement (mass/volume) 6.1 g/dL 6.4-8.2 Serum or plasma albumin measurement (mass/volume) 2.4 g/dL 3.2-4.5 CALCIUM CORRECTED 9.6 mg/dL 8.5-10.1 Capillary blood glucose measurement by g lucometer (mass/volume) - 10/04/19 11:52 Capillary blood glucose measurement by glucometer (mas s/volume) 117 mg/dL 70-110 Capillary blood glucose measurement by g lucometer (mass/volume) - 10/04/19 16:04 Capillary blood glucose measurement by glucometer (mas s/volume) 112 mg/dL 70-110 Capillary blood glucose measurement by g lucometer (mass/volume) - 10/04/19 20:46 Capillary blood glucose measurement by glucometer (mas s/volume) 151 mg/dL 70-110 Capillary blood glucose measurement by g lucometer (mass/volume) - 10/05/19 06:49 Capillary blood glucose measurement by glucometer (mas s/volume) 92 mg/dL 70-110 Complete blood count (CBC) with automate d white blood cell (WBC) differential - 10/05/19 07:30 Blood leukocytes automated count (number/volume) 6.6 10*3/uL 4.3-11.0 Blood erythrocytes automated count (number/volume) 3.36 10*6/uL 4.35-5.85 Venous blood hemoglobin measurement (mass/volume) 10.6 g/dL 13.3-17.7 Blood hematocrit (volume fraction) 32 % 40-54 Automated erythrocyte mean corpuscular volume 96 [ foz_us] 80-99 Automated erythrocyte mean corpuscular h emoglobin (mass per erythrocyte) 32 pg 25-34 Automated erythrocyte mean corpuscular h emoglobin concentration measurement (mass/volume) 33 g/dL 32-36 Automated erythrocyte distribution width ratio 14. 9 % 10.0- 14.5 Automated blood platelet count (count/volume) 284 10*3/uL 130-400 Automated blood platelet mean volume measurement 9.5 [foz_us] 7.4-10.4 Automated blood neutrophils/100 leukocytes 58 % 42-75 Automated blood lymphocytes/100 leukocytes 24 % 12-44 Blood monocytes/100 leukocytes 14 % 0-12 Automated blood eosinophils/100 leukocytes 4 % 0-10 Automated blood basophils/100 leukocytes 1 % 0-10 Blood neutrophils automated count (number/volume) 3.8 10*3 1.8-7.8 Blood lymphocytes automated count (number/volume) 1.6 10*3 1.0-4.0 Blood monocytes automated count (number/volume) 0. 9 10*3 0.0-1.0 Automated eosinophil count 0.2 10*3/uL 0 .0-0.3 Automated blood basophil count (count/volume) 0.1 10*3/uL 0.0-0.1 Comprehensive metabolic panel - 10/05/19 07:30 Serum or plasma sodium measurement (moles/volume) 133 mmol/L 135-145 Serum or plasma potassium measurement (moles/volume) 4.3 mmol/L 3.6-5.0 Serum or plasma chloride measurement (moles/volume) 104 mmol/L 98-107 Carbon dioxide 24 mmol/L 21-32 Serum or plasma anion gap determination (moles/volume) 5 mmol/L 5-14 Serum or plasma urea nitrogen measurement (mass/volume ) 8 mg/dL 7-18 Serum or plasma creatinine measurement (mass/volume) 0.78 mg/dL 0.60-1.30 Serum or plasma urea nitrogen/creatinine mass ratio 10 NRG Serum or plasma creatinine measurement w ith calculation of estimated glomerular filtration rate > NRG Serum or plasma glucose measurement (mass/volume) 89 mg/dL 70-105 Serum or plasma calcium measurement (mass/volume) 9.1 mg/dL 8.5-10.1 Serum or plasma total bilirubin measurement (mass/volu me) 0.5 mg/dL 0.1-1.0 Serum or plasma alkaline phosphatase chucky surement (enzymatic activity/volume) 163 U/L 40-136 Serum or plasma aspartate aminotransfera se measurement (enzymatic activity/volume) 22 U/L 5-34 Serum or plasma alanine aminotransferase measurement (enzymatic activity/volume) 16 U/L 0-55 Serum or plasma protein measurement (mass/volume) 7.1 g/dL 6.4-8.2 Serum or plasma albumin measurement (mass/volume) 2.8 g/dL 3.2-4.5 CALCIUM CORRECTED 10.1 mg/dL 8.5-10.1 Capillary blood glucose measurement by g lucometer (mass/volume) - 10/05/19 11:16 Capillary blood glucose measurement by glucometer (mas s/volume) 119 mg/dL 70-110 Capillary blood glucose measurement by g lucometer (mass/volume) - 10/05/19 15:45 Capillary blood glucose measurement by glucometer (mas s/volume) 164 mg/dL 70-110 Vancomycin trough - 10/05/19 18:42 Vancomycin trough 11.9 ug/mL 10.0-20.0 Capillary blood glucose measurement by g lucometer (mass/volume) - 10/05/19 20:15 Capillary blood glucose measurement by glucometer (mas s/volume) 261 mg/dL 70-110 Complete blood count (CBC) with automate d white blood cell (WBC) differential - 10/06/19 05:00 Blood leukocytes automated count (number/volume) 6.8 10*3/uL 4.3-11.0 Blood erythrocytes automated count (number/volume) 2.91 10*6/uL 4.35-5.85 Venous blood hemoglobin measurement (mass/volume) 9.3 g/dL 13.3-17.7 Blood hematocrit (volume fraction) 28 % 40-54 Automated erythrocyte mean corpuscular volume 96 [ foz_us] 80-99 Automated erythrocyte mean corpuscular h emoglobin (mass per erythrocyte) 32 pg 25-34 Automated erythrocyte mean corpuscular h emoglobin concentration measurement (mass/volume) 33 g/dL 32-36 Automated erythrocyte distribution width ratio 14. 8 % 10.0- 14.5 Automated blood platelet count (count/volume) 276 10*3/uL 130-400 Automated blood platelet mean volume measurement 9.8 [foz_us] 7.4-10.4 Automated blood neutrophils/100 leukocytes 57 % 42-75 Automated blood lymphocytes/100 leukocytes 24 % 12-44 Blood monocytes/100 leukocytes 16 % 0-12 Automated blood eosinophils/100 leukocytes 3 % 0-10 Automated blood basophils/100 leukocytes 1 % 0-10 Blood neutrophils automated count (number/volume) 3.9 10*3 1.8-7.8 Blood lymphocytes automated count (number/volume) 1.6 10*3 1.0-4.0 Blood monocytes automated count (number/volume) 1. 1 10*3 0.0-1.0 Automated eosinophil count 0.2 10*3/uL 0 .0-0.3 Automated blood basophil count (count/volume) 0.0 10*3/uL 0.0-0.1 Comprehensive metabolic panel - 10/06/19 05:00 Serum or plasma sodium measurement (moles/volume) 134 mmol/L 135-145 Serum or plasma potassium measurement (moles/volume) 4.1 mmol/L 3.6-5.0 Serum or plasma chloride measurement (moles/volume) 103 mmol/L 98-107 Carbon dioxide 24 mmol/L 21-32 Serum or plasma anion gap determination (moles/volume) 7 mmol/L 5-14 Serum or plasma urea nitrogen measurement (mass/volume ) 8 mg/dL 7-18 Serum or plasma creatinine measurement (mass/volume) 0.76 mg/dL 0.60-1.30 Serum or plasma urea nitrogen/creatinine mass ratio 11 NRG Serum or plasma creatinine measurement w ith calculation of estimated glomerular filtration rate > NRG Serum or plasma glucose measurement (mass/volume) 97 mg/dL 70-105 Serum or plasma calcium measurement (mass/volume) 8.5 mg/dL 8.5-10.1 Serum or plasma total bilirubin measurement (mass/volu me) 0.4 mg/dL 0.1-1.0 Serum or plasma alkaline phosphatase chucky surement (enzymatic activity/volume) 136 U/L 40-136 Serum or plasma aspartate aminotransfera se measurement (enzymatic activity/volume) 18 U/L 5-34 Serum or plasma alanine aminotransferase measurement (enzymatic activity/volume) 14 U/L 0-55 Serum or plasma protein measurement (mass/volume) 6.5 g/dL 6.4-8.2 Serum or plasma albumin measurement (mass/volume) 2.6 g/dL 3.2-4.5 CALCIUM CORRECTED 9.6 mg/dL 8.5-10.1 Capillary blood glucose measurement by g lucometer (mass/volume) - 10/06/19 05:18 Capillary blood glucose measurement by glucometer (mas s/volume) 117 mg/dL 70-110 Capillary blood glucose measurement by g lucometer (mass/volume) - 10/06/19 11:20 Capillary blood glucose measurement by glucometer (mas s/volume) 134 mg/dL 70-110 Whole blood basic metabolic panel - 09/27 01/12 10:50 Serum or plasma sodium measurement (moles/volume) 133 mmol/L 135-145 Serum or plasma potassium measurement (moles/volume) 4.6 mmol/L 3.6-5.0 Serum or plasma chloride measurement (moles/volume) 104 mmol/L 98-107 Carbon dioxide 21 mmol/L 21-32 Serum or plasma anion gap determination (moles/volume) 8 mmol/L 5-14 Serum or plasma urea nitrogen measurement (mass/volume ) 30 mg/dL 7-18 Serum or plasma creatinine measurement (mass/volume) 1.25 mg/dL 0.60-1.30 Serum or plasma urea nitrogen/creatinine mass ratio 24 NRG Serum or plasma creatinine measurement w ith calculation of estimated glomerular filtration rate 57 NRG Serum or plasma glucose measurement (mass/volume) 179 mg/dL 70-105 Serum or plasma calcium measurement (mass/volume) 9.0 mg/dL 8.5-10.1 Vancomycin trough - 10/20/19 10:50 Vancomycin trough 26.0 ug/mL 10.0-20.0 Vancomycin trough - 10/21/19 12:00 Vancomycin trough 18.3 ug/mL 10.0-20.0 Vancomycin trough - 10/25/19 13:30 Vancomycin trough 36.7 ug/mL 10.0-20.0 Comprehensive metabolic panel - 10/28/19 13:57 Serum or plasma sodium measurement (moles/volume) 132 mmol/L 135-145 Serum or plasma potassium measurement (moles/volume) 5.3 mmol/L 3.6-5.0 Serum or plasma chloride measurement (moles/volume) 102 mmol/L 98-107 Carbon dioxide 22 mmol/L 21-32 Serum or plasma anion gap determination (moles/volume) 8 mmol/L 5-14 Serum or plasma urea nitrogen measurement (mass/volume ) 12 mg/dL 7-18 Serum or plasma creatinine measurement (mass/volume) 1.34 mg/dL 0.60-1.30 Serum or plasma urea nitrogen/creatinine mass ratio 9 NRG Serum or plasma creatinine measurement w ith calculation of estimated glomerular filtration rate 52 NRG Serum or plasma glucose measurement (mass/volume) 166 mg/dL 70-105 Serum or plasma calcium measurement (mass/volume) 8.8 mg/dL 8.5-10.1 Serum or plasma total bilirubin measurement (mass/volu me) 0.9 mg/dL 0.1-1.0 Serum or plasma alkaline phosphatase chucky surement (enzymatic activity/volume) 217 U/L 40-136 Serum or plasma aspartate aminotransfera se measurement (enzymatic activity/volume) 23 U/L 5-34 Serum or plasma alanine aminotransferase measurement (enzymatic activity/volume) 16 U/L 0-55 Serum or plasma protein measurement (mass/volume) 7.1 g/dL 6.4-8.2 Serum or plasma albumin measurement (mass/volume) 3.0 g/dL 3.2-4.5 CALCIUM CORRECTED 9.6 mg/dL 8.5-10.1 Vancomycin trough - 10/28/19 13:57 Vancomycin trough 14.1 ug/mL 10.0-20.0 Encounters ACCT No. Visit Date/Time Discharge Status Pt. Type Provider Facility Loc./Unit Complaint [id number] 09/24/2019 13:15:00 09/24/2019 23:59: 59 [facility] Outpatient [facility] [id number] 09/24/2019 13:15:00 Document Registration [id number] 03/31/2019 13:45:00 Document Registration [id number] 10/28/2019 13:46:00 23:59:59 CLS Outpatient LATASHA DE JESUS MD [facility] LAB ATB [id number] 10/28/2019 13:20:00 13:38:00 DIS Emergency MARCOS EZIO AL [facility] ER PICC LINE ISSUES [id number] 10/25/2019 14:11:00 23:59:59 CLS Outpatient NALLELY HORTA MD [facility] LABNPT [id number] 10/21/2019 12:42:00 23:59:59 CLS Outpatient LATASHA DE JESUS MD [facility] LABT OSTEOMYELITIS [id number] 10/20/2019 10:48:00 23:59:59 CLS Outpatient LATASHA DE JESUS MD [facility] LABNPT OSTEOMYELITIS [id number] 10/02/2019 14:59:00 14:13:00 DIS Inpatient REGAN GOMEZ DO, V [facility] 4TH SWB:OSTEOMYELITIS [id number] 09/28/2019 17:36:00 14:49:00 DIS Inpatient AUSTEN DARBY MD [facility] 4TH OSTEOMYELITIS R FOOT, L OW NA [id number] 09/24/2019 14:24:00 23:59:59 CLS Outpatient GERRY GILL, MALISSA Herrmann [facility] RAD FS [id number] 09/21/2019 16:19:00 17:08:00 DIS Emergency ROVENSTINE LUIS AL L [facility] ER FS SWOLLEN LEG [id number] 07/14/2019 13:00:00 23:59:59 CLS Outpatient ERAN BURTON MD [facility] WOUNDCARE [id number] 06/30/2019 12:32:00 23:59:59 CLS Outpatient ERAN BURTON MD [facility] WOUNDCARE [id number] 06/23/2019 12:50:00 23:59:59 CLS Outpatient ERAN BURTON MD [facility] WOUNDCARE [id number] 06/16/2019 12:59:00 23:59:59 CLS Outpatient ERAN BURTON MD [facility] WOUNDCARE [id number] 06/08/2019 08:03:00 23:59:59 CLS Outpatient ERAN BURTON MD [facility] WOUNDCARE [id number] 06/01/2019 19:21:00 13:38:00 DIS Inpatient REGAN GOMEZ DO [facility] 4TH GENERALIZED WEAKNESS, W OUND RT FOOT [id number] 05/25/2019 18:30:00 13:19:00 DIS Inpatient ADITHYA SANDS MD [facility] 4TH DIABETIC FOOT INFECTION [id number] 12/03/2018 18:50:00 23:59:59 CLS Outpatient GERRY GILL, MALISSA Herrmann [facility] LAB FS ROUTINE LABS [id number] 09/22/2018 07:30:00 23:59:59 CLS Preadmit AMY HEREDIA APRN [facility] RAD ATELECTASIS [id number] 09/03/2018 17:45:00 23:59:59 CLS Outpatient AMY HEREDIA APRN [facility] RAD COPD [id number] 07/09/2018 03:27:00 22:00:00 DIS Inpatient REGAN GOMEZ DO [facility] 4TH PNEUMONIA,HYPOXIA,HYPOT ENSION,AMS [id number] 12/20/2017 08:07:00 09:43:00 DIS Outpatient DARYN ADAMS MD [facility] SDC YAG LASER BOTH EYES [id number] 12/12/2017 05:35:00 04/19/2 018 16:00:00 DIS Outpatient BRYAN GILL, DARYN López [facility] PREOP YAG BOTH EYES [id number] 10/25/2017 12:03:00 018 14:02:00 DIS Emergency REYES ESPINAL [facility] ER LUMP ON BACK OF NECK
== END 2019-10-28 13:38 | disposition left against medical advice (07) ==
LOC: EDUNIT# 13:19 → ER 13:20
DX: Z45.2 Encounter for adjustment and management of vascular access device (principal)
CPT/HCPCS: 99281

== ENCOUNTER → 2019-10-28 | Outpatient (CLI) | payer MEDICARE ==
[2019-10-28 14:30] LABS: BILIRUBIN,TOTAL 0.9 MG/DL (0.1-1.0); CALCIUM 8.8 MG/DL (8.5-10.1); CREATININE SERUM 1.34 MG/DL (0.60-1.30); POTASSIUM 5.3 MMOL/L (3.6-5.0); TOTAL PROTEIN 7.1 GM/DL (6.4-8.2)
[2019-10-28 14:35] LABS: VANCOMYCIN,TROUGH 14.1 UG/ML (10.0-20.0)
== END ==
LOC: LAB 13:46
PROVIDERS: ATTEND Internal Medicine
DX: Z01.89 Encounter for other specified special examinations (principal)
CPT/HCPCS: 36415; 80053; 80202

== ENCOUNTER → 2019-11-02 | Outpatient (CLI) | payer MEDICARE ==
[2019-11-02 10:52] LABS: ALBUMIN 2.9 GM/DL (3.2-4.5); BILIRUBIN,TOTAL 0.7 MG/DL (0.1-1.0); CALCIUM 8.6 MG/DL (8.5-10.1); CREATININE SERUM 1.32 MG/DL (0.60-1.30); TOTAL PROTEIN 6.7 GM/DL (6.4-8.2)
[2019-11-02 10:58] LABS: VANCOMYCIN,TROUGH 15.1 UG/ML (10.0-20.0)
== END ==
LOC: LAB 10:04
PROVIDERS: ATTEND Internal Medicine
DX: M86.9 Osteomyelitis, unspecified (principal); Z79.899 Other long term (current) drug therapy
CPT/HCPCS: 36415; 80053; 80202

== ENCOUNTER → 2019-11-10 | Outpatient (CLI) | payer MEDICARE | LOC: LABNPT 10:50 | PROVIDERS: ATTEND Internal Medicine | DX: M86.9 Osteomyelitis, unspecified (principal); Z79.899 Other long term (current) drug therapy | CPT/HCPCS: 80202 ==

== ENCOUNTER → 2019-11-16 | Outpatient (CLI) | payer MEDICARE ==
[2019-11-16 10:28] LABS: CALCIUM 8.7 MG/DL (8.5-10.1); CREATININE SERUM 2.07 MG/DL (0.60-1.30)
[2019-11-16 10:35] LABS: VANCOMYCIN,TROUGH 17.8 UG/ML (10.0-20.0)
[2019-11-16 10:40] LABS: POTASSIUM 6.4 MMOL/L (3.6-5.0)
== END ==
LOC: LABNPT 09:58
PROVIDERS: ATTEND Internal Medicine
DX: M86.9 Osteomyelitis, unspecified (principal)
CPT/HCPCS: 80048; 80202

== ENCOUNTER 2019-11-25 09:55 | Outpatient (CLI) | payer MEDICARE ==
[~2019-11-25] VITALS: Ht 187 cm; Wt 98.0 kg
[2019-11-25 10:45] VITALS: BP 113/68
== END 2019-11-25 10:45 | disposition home or self-care (01) ==
LOC: SDC 09:55
PROVIDERS: ATTEND Nurse Practitioner Community Health
DX: M86.9 Osteomyelitis, unspecified (principal)

== ENCOUNTER 2020-06-09 08:35 | Emergency (ER) | payer MEDICARE ==
[~2020-06-09 08:35] MED LIST changes: +CLOT15CR28 TP; -CLOT15CR5 TP; -WARF2.5T82 PO; +WRF2.5T PO
--- NOTE | 2020-06-09 08:46 | ED Neurological Problem ---
General Chief Complaint: Neurological Problems Stated Complaint: SLURRED SPEECH Source: patient, EMS Exam Limitations: no limitations History of Present Illness Date Seen by Provider: Jun 09, 2020 Time Seen by Provider: 08:37 Initial Comments 74-year-old male who presents via EMS with complaint of slurred speech. Patient states that he woke up in a dream at 3 a.m. and was having difficulty speaking and some incoordination with using both his right and his left arm with simple tasks. Denies either right or left arm weakness or lateralizing to one side (incoordination or weakness). Denies history of CVA, however does admit to regularly drinking alcohol daily, but denies any excessive drinking last night. Denies recent illness, fever or chills, chest pain, palpitations, shortness of air or cough. Allergies and Home Medications Allergies Coded Allergies: No Known Drug Allergies (Unverified , 10/25/17) Home Medications Digoxin 125 Mcg Tablet, 125 MCG PO DAILY, (Reported) Diltiazem HCl 240 Mg Cap.er.24h, 240 MG PO DAILY, (Reported) Docusate Sodium 100 Mg Capsule, 100 MG PO BID Prescribed by: REGAN GOMEZ on 10/06/191123 Folic Acid 1 Mg Tablet, 1 MG PO DAILY Prescribed by: REGAN GOMEZ on 10/06/191123 Furosemide 20 Mg Tablet, 20 MG PO DAILY, (Reported) Hydrocodone Bit/Acetaminophen 1 Tab Tab, 1 TAB PO Q4H PRN for PAIN-MODERATE (5- 7) Prescribed by: REGAN GOMEZ on 10/06/191123 Lisinopril 10 Mg Tablet, 10 MG PO DAILY, (Reported) Mirtazapine 15 Mg Tab.rapdis, 15 MG PO HS Prescribed by: REGAN GOMEZ on 10/06/191123 Nystatin 15 Gm Cream..g., 0 GM TP BID Prescribed by: REGAN GOMEZ on 10/06/191123 Pantoprazole Sodium 40 Mg Tablet.dr, 40 MG PO DAILY, (Reported) Potassium Chloride 20 Meq Tablet.er, 20 MEQ PO DAILY, (Reported) Pregabalin 50 Mg Capsule, 50 MG PO BID, (Reported) Rivaroxaban 20 Mg Tablet, 20 MG PO DAILY, (Reported) Vancomycin HCl in Water 1.75 Gm/17.5 Ml Vial, 1.75 GM IV DAILY Prescribed by: REGAN GOMEZ on 10/06/19 1124 Patient Home Medication List Home Medication List Reviewed: Yes Review of Systems Review of Systems Constitutional: see HPI; No chills, No diaphoresis, No dizziness, No fever, No malaise, No weakness Eyes: Denies Blindness, Denies Blurred Vision, Denies Decreased Acuity Ears, Nose, Mouth, Throat: no symptoms reported Respiratory: No cough, No short of breath, No wheezing Cardiovascular: No chest pain, No edema, No palpitations, No syncope Gastrointestinal: No abdominal pain, No nausea, No vomiting Musculoskeletal: No back pain, No joint pain, No neck pain Skin: No change in color, No lesions, No rash Psychiatric/Neurological: See HPI; Denies Headache, Denies Numbness, Denies Tingling, Denies Unable to Move Lower Ext, Denies Unable to Move Upper Ext, Denies Weakness; Other (slurred speech and incoordination) Past Vrkjdnf-Moxaft-Yazypo Hx Past Med/Social Hx: Reviewed Nursing Past Med/Soc Hx Patient Social History Alcohol Use: Regular Use Alcohol Beverage of Choice: Whiskey, Wine Type Used: Cigars 2nd Hand Smoke Exposure: Yes Recent Hopitalizations: No Immunizations Up To Date Tetanus Booster (TDap): Unknown Date of Pneumonia Vaccine: Aug 26, 2015 Date of Influenza Vaccine: May 26, 2019 Seasonal Allergies Seasonal Allergies: No Past Medical History Surgeries: No (UNKNOWN) Orthopedic, Tonsillectomy Respiratory: Yes Pneumonia Currently Using CPAP: No Currently Using BIPAP: No Cardiac: Yes (heart failure with lower extremity edema) Atrial Fibrillation, Cardiomyopathy, Hypertension Neurological: Yes (neuritis and neuralgia; dizziness) Genitourinary: Yes (current UTI) Gastrointestinal: Yes (ileus) Gastroesophageal Reflux, Liver Disease/Jaundice, Gastrointestinal Bleed, Hepatitis Musculoskeletal: Yes (generalized muscle weakness, unsteadiness on feet) Endocrine: Yes Diabetes, Non-Insulin dep HEENT: No Loss of Vision: Denies Hearing Impairment: Denies Cancer: No Psychosocial: Yes Anxiety, Depression Integumentary: No Blood Disorders: Yes (anemia) Family Medical History Diabetes mellitus G8 BROTHER FH: testicular cancer 19 FATHER Unknown cancer 19 MOTHER No Pertinent Family Hx, Cancer, Diabetes Physical Exam Vital Signs Vital Signs - First Documented 06/09/20 08:39 Temp 36.3 Pulse 108 Resp 16 B/P (MAP) 121/76 (91) Pulse Ox 98 Capillary Refill : Height, Weight, BMI Height: 5'11.00" Weight: 179lbs. 9.0oz. 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, no motor/sensory deficits, alert, normal mood/affect, oriented x 3; No abnormal cerebellar tests, No aphasia, No facial droop, No motor weakness, No sensory deficit, No depressed affect, No disoriented x 3; other Crainal Nerves: normal hearing; No normal speech (slight slurred speech); PERRL; No abnormal eye position, No abnormal gag reflex, No abnormal pupil position; abnormal speech; No facial asymmetry, No facial droop, No facial paresthesias, No facial weakness, No gaze palsy, No hearing deficit (R), No hearing deficit (L), No tongue deviation to R, No tongue deviation to L Coordination/Gait: normal finger to nose, negative Romberg's sign Motor/Sensory: no motor deficit, no sensory deficit, no pronator drift Skin: normal color, warm/dry Stroke Onset of Symptoms Date of Onset of Symptoms: Jun 09, 2020 Time of Symptom Onset: 03:00 Onset of Symptoms: Yes NIH Stroke Scale Assessment Select: Initial Level of Consciousness: 0=Alert (0), Level of Consciousness- Questions: 0=Answers both month/age (0), LOC Commands: 0=Performs both tasks (0), Gaze: Normal (0), Visual [place]: 0=No visual loss (0), Facial Movement (Facial Paresis): 0=Normal symmetrical mnt (0), Motor Function-Arms Right: 0=No drift (0), Motor Function-Arms Left: 0=No drift (0), Motor Function-Legs Right: 0=No drift (0), Motor Function-Legs Left: 0=No drift (0), Limb Ataxia: 0=Absent (0), Sensory: 0=Normal:no loss (0), Best Language: 0=No aphasia (0), Dysarthria: 1=Mild to moderate loss (1), Extinction & Inattention: 0=No abnormality (0), Total: 1 Progress/Results/Core Measures Results/Orders Lab Results Laboratory Tests Test 06/09/20 08:45 Range/Units White Blood Count 9.1 4.3-11.0 10^3/uL Red Blood Count 3.57 L 4.35-5.85 10^6/uL Hemoglobin 11.2 L 13.3-17.7 G/DL Hematocrit 34 L 40-54 % Mean Corpuscular Volume 95 80-99 FL Mean Corpuscular Hemoglobin 31 25-34 PG Mean Corpuscular Hemoglobin Concent 33 32-36 G/DL Red Cell Distribution Width 18.5 H 10.0-14.5 % Platelet Count 263 130-400 10^3/uL Mean Platelet Volume 10.6 H 7.4-10.4 FL Immature Granulocyte % (Auto) 0 % Neutrophils (%) (Auto) 78 H 42-75 % Lymphocytes (%) (Auto) 15 12-44 % Monocytes (%) (Auto) 6 0-12 % Eosinophils (%) (Auto) 0 0-10 % Basophils (%) (Auto) 0 0-10 % Neutrophils # (Auto) 7.0 1.8-7.8 X 10^3 Lymphocytes # (Auto) 1.4 1.0-4.0 X 10^3 Monocytes # (Auto) 0.6 0.0-1.0 X 10^3 Eosinophils # (Auto) 0.0 0.0-0.3 10^3/uL Basophils # (Auto) 0.0 0.0-0.1 10^3/uL Immature Granulocyte # (Auto) 0.0 0.0-0.1 10^3/uL Sodium Level 126 L 135-145 MMOL/L Potassium Level 5.5 H 3.6-5.0 MMOL/L Chloride Level 91 L 98-107 MMOL/L Carbon Dioxide Level 14 L 21-32 MMOL/L Anion Gap 21 H 5-14 MMOL/L Blood Urea Nitrogen 27 H 7-18 MG/DL Creatinine 0.98 0.60-1.30 MG/DL Estimat Glomerular Filtration Rate > 60 BUN/Creatinine Ratio 28 Glucose Level 30 *L 70-105 MG/DL Calcium Level 8.8 8.5-10.1 MG/DL Corrected Calcium 9.2 8.5-10.1 MG/DL Total Bilirubin 0.4 0.1-1.0 MG/DL Aspartate Amino Transf (AST/SGOT) 37 H 5-34 U/L Alanine Aminotransferase (ALT/SGPT) 14 0-55 U/L Alkaline Phosphatase 268 H 40-136 U/L Troponin I < 0.30 <0.30 NG/ML Total Protein 7.0 6.4-8.2 GM/DL Albumin 3.5 3.2-4.5 GM/DL Serum Alcohol < 10 <10 MG/DL My Orders Orders - ANNETTEVENSTLUIS STARKS DO Ed Iv/Invasive Line Start (06/09/20 08:39) Ct Head Wo (06/09/20 08:39) Alcohol (06/09/20 08:39) Cbc With Automated Diff (06/09/20 08:39) Comprehensive Metabolic Panel (06/09/20 08:39) Troponin I Fs (06/09/20 08:39) Ekg Tracing (06/09/20 08:39) Vital Signs/I&O 06/09/20 08:39 Temp 36.3 Pulse 108 Resp 16 B/P (MAP) 121/76 (91) Pulse Ox 98 Progress Progress Note : Progress Note On arrival EMS stated his fingerstick glucose was 170. This was not repeated after arrival is patient is awake and alert, but with slight slurred speech. However, patient was asking for food right away and was fed peanut butter, Crackers as well as some juice. His initial labs showed a glucose was 30. Symptoms resolved after eating, slurred speech absent and patient states he is feeling much better. Initial ECG Impression Date: Jun 09, 2020 Diagnostic Imaging Diagonstic Imaging: CT Plain Films/CT/US/NM/MRI: head Comments COMPARISON: 07/09/2019 FINDINGS: The ventricles and cortical sulci are diffusely prominent, compatible with age-related volume loss. There are confluent areas of abnormal, low attenuation in the periventricular white matter. This is consistent with chronic small vessel ischemic changes. There is no midline shift or mass-effect. No acute intra-axial hemorrhage is seen. There are no abnormal areas of increased or decreased density to suggest acute hemorrhage or edema. No extra-axial masses or collections are present. The bony calvarium is intact. The visualized paranasal sinuses are unremarkable. The mastoid air cells are clear. IMPRESSION: 1. No acute intracranial abnormality. No CT evidence of mass, acute infarct or intracranial hemorrhage. 2. Chronic small vessel ischemic changes in the deep white matter. Dictated on workstation # [id number] Dict: 06/09/20904 Trans: 06/09/20907 CV [id number] Interpreted by: PORTIA TATE MD Electronically signed by: Departure Impression Primary Impression: Hypoglycemia Additional Impression: Slurred speech Disposition: 01 HOME, SELF-CARE Condition: Improved Departure-Patient Inst. Decision time for Depature: 09:54 Referrals: LATASHA DE JESUS MD (PCP/Family) Primary Care Physician Patient Instructions: Low Blood Sugar, Adult (DC) Add. Discharge Instructions: See Dr De Jesus in 2 to 3 days regarding today's episode of slurred speech and incoordination due to having a low blood sugar. He can evaluate your risk factors for stroke and further discuss ways to keep your blood sugar from dropping. All discharge instructions reviewed with patient and/or family. Voiced understanding. LUIS SHIN DO Jun 09, 2020 08:46
--- NOTE | 2020-06-09 09:08 | Diagnostic Imaging Report ---
INDICATION: Slurred speech. Weakness. TECHNIQUE: Routine non contrast-enhanced axial images were obtained from the skull base to the vertex. Auto Exposure Controls were utilized during the CT exam to meet ALARA standards for radiation dose reduction COMPARISON: 07/09/2019 FINDINGS: The ventricles and cortical sulci are diffusely prominent, compatible with age-related volume loss. There are confluent areas of abnormal, low attenuation in the periventricular white matter. This is consistent with chronic small vessel ischemic changes. There is no midline shift or mass-effect. No acute intra-axial hemorrhage is seen. There are no abnormal areas of increased or decreased density to suggest acute hemorrhage or edema. No extra-axial masses or collections are present. The bony calvarium is intact. The visualized paranasal sinuses are unremarkable. The mastoid air cells are clear. IMPRESSION: 1. No acute intracranial abnormality. No CT evidence of mass, acute infarct or intracranial hemorrhage. 2. Chronic small vessel ischemic changes in the deep white matter. Dictated by: Dictated on workstation # [id number]
[2020-06-09 09:21] LABS: BASOPHILS % (AUTO) 0 % (0-10); EOSINOPHILS % (AUTO) 0 % (0-10); HEMATOCRIT 34 % (40-54); HEMOGLOBIN 11.2 G/DL (13.3-17.7); LYMPHOCYTES # (AUTO) 1.4 X 10^3 (1.0-4.0); LYMPHOCYTES % (AUTO) 15 % (12-44); MEAN CORPUSCULAR HEMOGLOBIN 31 PG (25-34); MEAN CORPUSCULAR HGB CONC 33 G/DL (32-36); MEAN CORPUSCULAR VOLUME 95 FL (80-99); MEAN PLATELET VOLUME 10.6 FL (7.4-10.4); MONOCYTES # (AUTO) 0.6 X 10^3 (0.0-1.0); MONOCYTES % (AUTO) 6 % (0-12); NEUTROPHILS % (AUTO) 78 % (42-75); PLATELET COUNT 263 10^3/uL (130-400); WHITE BLOOD COUNT 9.1 10^3/uL (4.3-11.0)
[2020-06-09 09:52] LABS: BUN/CREATININE RATIO 28; CARBON DIOXIDE 14 MMOL/L (21-32); CHLORIDE 91 MMOL/L (98-107); CREATININE SERUM 0.98 MG/DL (0.60-1.30); GFR ESTIMATED > 60; GLUCOSE 30 MG/DL (70-105); POTASSIUM 5.5 MMOL/L (3.6-5.0); SODIUM 126 MMOL/L (135-145)
[2020-06-09 09:53] LABS: ALANINE AMINOTRANSFERASE 14 U/L (0-55); ALBUMIN 3.5 GM/DL (3.2-4.5); ALKALINE PHOSPHATASE 268 U/L (40-136); BILIRUBIN,TOTAL 0.4 MG/DL (0.1-1.0); CALCIUM 8.8 MG/DL (8.5-10.1)
[2020-06-09 10:44] VITALS: BP 125/79
== END 2020-06-09 10:45 | disposition home or self-care (01) ==
LOC: EDUNIT# 08:35 → ER FS 08:35
DX: E16.2 Hypoglycemia, unspecified (principal); R47.81 Slurred speech; I10 Essential (primary) hypertension; K21.9 Gastro-esophageal reflux disease without esophagitis; I48.91 Unspecified atrial fibrillation; F32.9 Major depressive disorder, single episode, unspecified; F41.9 Anxiety disorder, unspecified; Z83.3 Family history of diabetes mellitus; Z80.43 Family history of malignant neoplasm of testis; Z77.22 Contact with and (suspected) exposure to environmental tobacco smoke (acute) (chronic); Z79.01 Long term (current) use of anticoagulants
CPT/HCPCS: 36415; 70450; 80053; 82962; 84484; 85025; 99284; G0480; 80320

== ENCOUNTER 2020-07-29 15:00 | Inpatient (IN) | payer MEDICARE ==
[~2020-07-29] VITALS: Ht 187.9 cm; Wt 74.2 kg
[~2020-07-29 15:00] MED LIST changes: -NICO-588 TD; +NICO-685 TD
[2020-07-29 15:23] LABS: BASOPHILS # (AUTO) 0.1 10^3/uL (0.0-0.1); BASOPHILS % (AUTO) 1 % (0-10); EOSINOPHILS # (AUTO) 0.2 10^3/uL (0.0-0.3); EOSINOPHILS % (AUTO) 3 % (0-10); HEMATOCRIT 27 % (40-54); HEMOGLOBIN 8.4 g/dL (13.3-17.7); LYMPHOCYTES # (AUTO) 1.6 10^3/uL (1.0-4.0); LYMPHOCYTES % (AUTO) 24 % (12-44); MEAN CORPUSCULAR HEMOGLOBIN 32 pg (25-34); MEAN CORPUSCULAR HGB CONC 31 g/dL (32-36); MEAN CORPUSCULAR VOLUME 102 fL (80-99); MEAN PLATELET VOLUME 9.8 fL (9.0-12.2); MONOCYTES # (AUTO) 0.5 10^3/uL (0.0-1.0); MONOCYTES % (AUTO) 7 % (0-12); NEUTROPHILS # (AUTO) 4.3 10^3/uL (1.8-7.8); NEUTROPHILS % (AUTO) 65 % (42-75); PLATELET COUNT 269 10^3/uL (130-400); WHITE BLOOD COUNT 6.6 10^3/uL (4.3-11.0)
[2020-07-29 15:25] LABS: ALBUMIN 3.1 GM/DL (3.2-4.5); CHLORIDE 96 MMOL/L (98-107); SODIUM 131 MMOL/L (135-145)
[2020-07-29 15:26] LABS: CALCIUM 8.9 MG/DL (8.5-10.1)
[2020-07-29 15:28] LABS: GLUCOSE 141 MG/DL (70-105); TOTAL PROTEIN 6.7 GM/DL (6.4-8.2)
[2020-07-29 15:29] LABS: BILIRUBIN,TOTAL 0.4 MG/DL (0.1-1.0); CARBON DIOXIDE 23 MMOL/L (21-32)
[2020-07-29 15:31] LABS: ALKALINE PHOSPHATASE 231 U/L (40-136)
[2020-07-29 15:32] LABS: CREATININE SERUM 0.78 MG/DL (0.60-1.30); GFR ESTIMATED > 60
[2020-07-29 15:33] LABS: BUN/CREATININE RATIO 40
[2020-07-29 15:34] LABS: ALANINE AMINOTRANSFERASE 14 U/L (0-55)
[2020-07-29 15:35] LABS: MAGNESIUM 2.6 MG/DL (1.6-2.4)
--- NOTE | 2020-07-29 16:00 | NUR ---
1000 ml NS from EMS infused
--- NOTE | 2020-07-29 16:05 | Diagnostic Imaging Report ---
PROCEDURE: CT head without contrast. TECHNIQUE: Multiple contiguous axial images were obtained through the brain without the use of intravenous contrast. Auto Exposure Controls were utilized during the CT exam to meet ALARA standards for radiation dose reduction. INDICATION: Falls. COMPARISON: 06/09/2020. FINDINGS: There is no intracerebral hemorrhage. No focal or generalized cerebral edema. There is atrophy and white matter small vessel disease as well as intracranial atherosclerotic vascular calcifications stable from prior. No acute extra-axial fluid collection. No findings of elevation of the intracerebral pressures. There is membrane thickening of the right greater the left maxillary sinuses. The mastoids clear. There is no paranasal sinus air-fluid level. There is mild membrane thickening of the right frontal and anterior ethmoid air cells. Calvarium negative. IMPRESSION: Stable chronic senescent findings within the brain, mild paranasal sinus chronic membrane thickening without air-fluid level. No hemorrhage, edema or acute-appearing abnormality. Dictated by: Dictated on workstation # [id number]
--- NOTE | 2020-07-29 16:18 | ED General ---
General Chief Complaint: General Problems/Pain Stated Complaint: WEAKNESS Nursing Triage Note: Pt to ED via EMS. Pt reports being in recliner for a week. Pt reports sleeping in the recliner and the last time pt walked was a month ago. Pt reports recent falls and reports hitting head a month ago. Pt covered in urine and feces. Pt is cachectic, with severe bilat lower extremity edema. Pt has pressure ulcer to right buttock. Pt reports drinking whiskey daily. Pt reports having a healthcare worker, but worker has not been there because, "She is on [employer] party time." Nursing Sepsis Screen: No Definite Risk Source of Information: Patient, EMS Exam Limitations: No Limitations History of Present Illness Date Seen by Provider: Jul 29, 2020 Time Seen by Provider: 15:01 Initial Comments This 74-year-old gentleman presents to the emergency room via EMS from [place] with complaints of debility and inability to get out of his recliner for about a week. His brief is heavily stool and urine soaked. He also has worsening chronic edema of his feet and ankles. He reports falls over the past month including falls resulting in bumping his head. He believes the last time he bumped his head was about a month ago. He has swelling and inflammation around the right elbow bursa which he states is painful when he leans on it. He has multiple scabbed over skin tears on his extremities. He is somewhat disoriented. He has a caregiver but states "she could do better". He indicates he has not been able to successfully walk in about a week. EMS staff report neil t he is alcoholic. He does admit to drinking often but not necessarily every day. It is also reported that he has decubitus ulcers over the sacral area. Allergies and Home Medications Allergies Coded Allergies: No Known Drug Allergies (Unverified , 10/25/17) Home Medications Digoxin 125 Mcg Tablet, 125 MCG PO DAILY, (Reported) Diltiazem HCl 240 Mg Cap.er.24h, 240 MG PO DAILY, (Reported) LAST FILLED 05-25-2020 #30/30 DAY SUPPLY Docusate Sodium 100 Mg Capsule, 100 MG PO BID Prescribed by: REGAN GOMEZ on 10/06/19 1124 Fentanyl 1 Each Patch.td72, 50 MCG TD Q72H, (Reported) Furosemide 40 Mg Tablet, 40 MG PO DAILY, (Reported) Hydrocodone/Acetaminophen 1 Each Tablet, 1 EACH PO Q8H PRN for PAIN-MODERATE (5- 7), (Reported) Lisinopril 10 Mg Tablet, 10 MG PO DAILY, (Reported) Melatonin 5 Mg Tablet, 5 MG PO HS, (Reported) Mirtazapine 15 Mg Tablet, 15 MG PO HS, (Reported) Rivaroxaban 20 Mg Tablet, 20 MG PO DAILY, (Reported) LAST FILLED 05-25-2020 #30/30 DAY SUPPLY [Folic Acid] , 1 MG PO DAILY, (Reported) Patient Home Medication List Home Medication List Reviewed: Yes Review of Systems Review of Systems Constitutional: no symptoms reported EENTM: no symptoms reported Respiratory: no symptoms reported Cardiovascular: see HPI Gastrointestinal: no symptoms reported Genitourinary: see HPI Musculoskeletal: see HPI Skin: see HPI Psychiatric/Neurological: See HPI Hematologic/Lymphatic: No Symptoms Reported Immunological/Allergic: no symptoms reported Past Idtopqi-Lhiruj-Spvwyr Hx Past Med/Social Hx: Reviewed Nursing Past Med/Soc Hx Patient Social History Alcohol Use: Regular Use Number of Drinks Today: Alcohol Beverage of Choice: Whiskey, Wine Recreational Drug Use: No Smoking Status: Current Everyday Smoker Type Used: Cigars 2nd Hand Smoke Exposure: Yes Recent Foreign Travel: No Contact w/Someone Who Travel: No Recent Infectious Disease Expo: No Recent Hopitalizations: No Immunizations Up To Date Tetanus Booster (TDap): Unknown Date of Pneumonia Vaccine: Aug 26, 2015 Date of Influenza Vaccine: May 26, 2019 Seasonal Allergies Seasonal Allergies: No Past Medical History Surgeries: Yes Orthopedic, Tonsillectomy Respiratory: Yes Pneumonia Currently Using CPAP: No Currently Using BIPAP: No Cardiac: Yes (heart failure with lower extremity edema) Atrial Fibrillation, Cardiomyopathy, Hypertension Neurological: Yes (neuritis and neuralgia; dizziness) Genitourinary: Yes Gastrointestinal: Yes (ileus) Gastroesophageal Reflux, Liver Disease/Jaundice, Gastrointestinal Bleed, Hepatitis Musculoskeletal: Yes (generalized muscle weakness, unsteadiness on feet) Endocrine: Yes Diabetes, Non-Insulin dep HEENT: No Loss of Vision: Denies Hearing Impairment: Denies Cancer: No Psychosocial: Yes Anxiety, Depression Integumentary: No Blood Disorders: Yes (anemia) Family Medical History Diabetes mellitus G8 BROTHER FH: testicular cancer 19 FATHER Unknown cancer 19 MOTHER No Pertinent Family Hx, Cancer, Diabetes Physical Exam Vital Signs Vital Signs - First Documented 07/29/20 07/29/20 15:02 19:15 Temp 35.8 Pulse 105 Resp 20 B/P (MAP) 129/69 (89) Pulse Ox 100 O2 Delivery Room Air O2 Flow Rate 2.00 Capillary Refill : Less Than 3 Seconds Height, Weight, BMI Height: 5'11.00" Weight: 179lbs. 9.0oz. 81.157123hh; 19.00 BMI Method:Estimated General Appearance: No Apparent Distress, WD/WN, Other (Disheveled, heavily soiled) HEENT: PERRL/EOMI, Normal ENT Inspection Neck: Normal Inspection Respiratory: Lungs Clear, Normal Breath Sounds, No Accessory Muscle Use Cardiovascular: Regular Rate, Rhythm, No Edema, No Murmur Gastrointestinal: Normal Bowel Sounds, Non Tender, Distended (Distended bladder) Extremity: Normal Inspection, No Pedal Edema Neurologic/Psychiatric: Alert, No Motor/Sensory Deficits, Normal Mood/Affect, sponge hooker II-XII Norm as Tested, Other (Disoriented to month and year) Skin: Warm/Dry, Other (Heavily soiled with stool under his briefs. Sacral stage II decubitus ulcers.) Progress/Results/Core Measures Suspected Sepsis Recent Fever Within 48 Hours: No Infection Criteria Present: None New/Unexplained Altered Menta: No Sepsis Screen: No Definite Risk SIRS Temperature: Pulse: 105 Respiratory Rate: 20 Laboratory Tests 07/31/20 09:52: White Blood Count 5.1 08/02/20 05:20: White Blood Count 7.4 Blood Pressure 129 /69 Mean: 89 Laboratory Tests 07/31/20 09:52: Creatinine 0.75, Platelet Count 121L, Total Bilirubin 0.3 08/02/20 05:20: Creatinine 0.68, Platelet Count 233 Results/Orders Lab Results Laboratory Tests Test 08/01/20 13:30 08/01/20 15:36 08/01/20 20:44 08/02/20 05:20 Range/Units Iron Level 13 L 37-167 ug/dL Total Iron Binding Capacity 212 L 237-330 ug/dL Unsaturated Iron Binding Capacity 199 25-500 ug/dL Transferrin % Saturation 6 L 17-57 % Ferritin 67.4 32.0-356.0 ng/mL Vitamin B12 Level 1667 H 190-1100 pg/mL Folate 13.4 >=4.0 ng/mL Glucometer 117 H 102 70-110 MG/DL White Blood Count 7.4 4.3-11.0 10^3/uL Red Blood Count 2.58 L 4.30-5.52 10^6/uL Hemoglobin 8.3 L 13.3-17.7 g/dL Hematocrit 25 L 40-54 % Mean Corpuscular Volume 97 80-99 fL Mean Corpuscular Hemoglobin 32 25-34 pg Mean Corpuscular Hemoglobin Concent 33 32-36 g/dL Red Cell Distribution Width 15.7 H 10.0-14.5 % Platelet Count 233 130-400 10^3/uL Mean Platelet Volume 9.9 9.0-12.2 fL Immature Granulocyte % (Auto) 0 % Neutrophils (%) (Auto) 66 42-75 % Lymphocytes (%) (Auto) 22 12-44 % Monocytes (%) (Auto) 9 0-12 % Eosinophils (%) (Auto) 2 0-10 % Basophils (%) (Auto) 1 0-10 % Neutrophils # (Auto) 4.9 1.8-7.8 10^3/uL Lymphocytes # (Auto) 1.7 1.0-4.0 10^3/uL Monocytes # (Auto) 0.7 0.0-1.0 10^3/uL Eosinophils # (Auto) 0.1 0.0-0.3 10^3/uL Basophils # (Auto) 0.1 0.0-0.1 10^3/uL Immature Granulocyte # (Auto) 0.0 0.0-0.1 10^3/uL Sodium Level 133 L 135-145 MMOL/L Potassium Level 4.8 3.6-5.0 MMOL/L Chloride Level 98 98-107 MMOL/L Carbon Dioxide Level 25 21-32 MMOL/L Anion Gap 10 5-14 MMOL/L Blood Urea Nitrogen 14 7-18 MG/DL Creatinine 0.68 0.60-1.30 MG/DL Estimat Glomerular Filtration Rate > 60 BUN/Creatinine Ratio 21 Glucose Level 100 70-105 MG/DL Calcium Level 8.2 L 8.5-10.1 MG/DL Test 08/02/20 10:55 Range/Units Glucometer 120 H 70-110 MG/DL My Orders Vital Signs/I&O 12/8/20 12/8/20 12/8/20 12/8/20 04:07 06:40 08:00 08:00 Temp 37.5 36.4 Pulse 107 121 122 Resp 20 20 B/P (MAP) 124/69 (87) 126/85 (99) Pulse Ox 94 94 O2 Delivery Room Air Room Air Room Air 08/02/20 12:00 Temp 36.5 Pulse 110 Resp 20 B/P (MAP) 125/85 (98) Pulse Ox 94 O2 Delivery Room Air Capillary Refill : Less Than 3 Seconds Blood Pressure Mean: 89 Progress Note : Time: 18:09 Progress Note Work-up is complete and labs were reviewed. I am concerned about patient's overall wellbeing. I have discovered that he has not been taking his medications. He is uncertain if he took any medications today. He states his caregiver was not at his house today because she "had a soiree". [facility] in [place]. The only medications he has filled in the last month are Lasix and digoxin. He has not not filled any anticoagulants or Cardizem since May. He should be out of those medications. They did look in his clinic notes and discovered to the clinic has been trying to get him some home services. Patient received a liter of IV fluids. Patient needs to be admitted for further evaluation of his chronic conditions, reestablishment of his medications, monitoring of his wounds, and to ensure his safety before returning home. A dose of Lovenox was administered in the ER before admission. ECG Initial ECG Impression Date: Jul 29, 2020 Initial ECG Impression Time: 18:17 Initial ECG Rate: 110 Initial ECG Rhythm: A Fib/Flutter Initial ECG Impression: Atrial Fibrillation Comment Atrial fibrillation with no ST elevation or depression. Diagnostic Imaging Diagonstic Imaging: Xray Plain Films/CT/US/NM/MRI: chest Comments Chest x-ray viewed by me and report reviewed. See report below: NAME: MACHO MAIER [facility] REC#: [id number] PT STATUS: REG ER : 1945 PHYSICIAN: LIONEL MAC MD ADMIT DATE: 07/29/20/ER Draft Date of Exam:07/29/20 CHEST 1 VIEW, AP/PA ONLY Indication: Weakness Comparison: 10/05/2019 Findings: Blunting of the bilateral costophrenic angles may be due to small pleural effusions versus chronic subpleural scarring. No pneumothorax. Right basilar subsegmental atelectasis. Heart is normal in size. Impression: 1. Trace bilateral pleural effusions versus chronic subpleural scar. 2. No radiographic features of pneumonia. Dictated on workstation # [id number] Dict: 07/29/20 1628 Trans: 07/29/20 1631 [facility] [id number] Interpreted by: BLACK BROUSSARD MD Diagonstic Imaging: Xray Plain Films/CT/US/NM/MRI: pelvis Comments Pelvis x-ray viewed by me and report reviewed. See report below: NAME: MACHO MAIER [facility] REC#: [id number] PT STATUS: REG ER : 1945 PHYSICIAN: LIONEL MAC MD ADMIT DATE: 07/29/20/ER Draft Date of Exam:07/29/20 PELVIS INDICATION: Pelvic pain. COMPARISON: None available. TECHNIQUE: AP view of the pelvis. FINDINGS: Diffuse osseous demineralization is present. No displaced fracture. Assessment of the right hip is suboptimal due to internal rotation and suboptimal visualization of the femoral neck. No traumatic diastases of the SI joints or symphysis pubis. Benign calcifications are present in the pelvis. IMPRESSION: No gross osseous abnormality in the pelvis. Dictated on workstation # [id number] Dict: 07/29/20 1630 Trans: 07/29/20 1632 [facility] [id number] Interpreted by: BLACK BROUSSARD MD Diagonstic Imaging: Xray Plain Films/CT/US/NM/MRI: elbow Comments Right elbow x-ray viewed by me and report reviewed. See report below: NAME: MACHO MAIER [facility] REC#: [id number] PT STATUS: REG ER : 1945 PHYSICIAN: LIONEL MAC MD ADMIT DATE: 07/29/20/ER Draft Date of Exam:07/29/20 ELBOW, RIGHT, 3 VIEWS INDICATION: Elbow pain COMPARISON: None available TECHNIQUE: 3 radiographs of the right elbow dated 07/29/2020. FINDINGS: No acute fracture or dislocation. No destructive osseous process. Advanced vascular calcifications. Prominent soft tissue swelling is noted overlying the olecranon. 8 mm linear radiopaque density is noted within the soft tissues anterior to the mid humerus. IMPRESSION: 1. No acute osseous abnormality. 2. Prominent soft tissue swelling overlying the olecranon. This may relate to soft tissue injury/hematoma, though olecranon bursitis would be an additional consideration. 3. An 8 mm linear density anterior to the mid humerus, which could relate to a small foreign body. 4. Advanced vascular calcifications. Dictated on workstation # [id number] Dict: 07/29/20 1629 Trans: 07/29/20 1638 [id number] Interpreted by: KEVON VYAS MD Diagonstic Imaging: CT Plain Films/CT/US/NM/MRI: head Comments CT head viewed by me and report reviewed. See report below: NAME: MACHO MAIER [email or web address] REC#: [id number] PT STATUS: REG ER : 1945 PHYSICIAN: LIONEL MAC MD ADMIT DATE: 07/29/20/ER Draft Date of Exam:07/29/20 CT HEAD WO PROCEDURE: CT head without contrast. TECHNIQUE: Multiple contiguous axial images were obtained through the brain without the use of intravenous contrast. Auto Exposure Controls were utilized during the CT exam to meet ALARA standards for radiation dose reduction. INDICATION: Falls. COMPARISON: 06/09/2020. FINDINGS: There is no intracerebral hemorrhage. No focal or generalized cerebral edema. There is atrophy and white matter small vessel disease as well as intracranial atherosclerotic vascular calcifications stable from prior. No acute extra-axial fluid collection. No findings of elevation of the intracerebral pressures. There is membrane thickening of the right greater the left maxillary sinuses. The mastoids clear. There is no paranasal sinus air-fluid level. There is mild membrane thickening of the right frontal and anterior ethmoid air cells. Calvarium negative. IMPRESSION: Stable chronic senescent findings within the brain, mild paranasal sinus chronic membrane thickening without air-fluid level. No hemorrhage, edema or acute-appearing abnormality. Dictated on workstation # [id number] Dict: 07/29/20 1602 Trans: 07/29/20 1605 [facility] [id number] Interpreted by: JB SENA Departure Communication (Admissions) Time/Spoke to Admitting Phy: 17:15 Dr. Duong Impression Primary Impression: Debility Additional Impressions: Generalized weakness Confusion Anemia Qualified Codes: D64.9 - Anemia, unspecified Stage II decubitus ulcer Qualified Codes: L89.152 - Pressure ulcer of sacral region, stage 2 Atrial fibrillation Qualified Codes: I48.91 - Unspecified atrial fibrillation Disposition: 09 ADMITTED INPATIENT Condition: Stable Admissions Decision to Admit Reason: Admit from ER (General) Decision to Admit/Date: Jul 29, 2020 Time/Decision to Admit Time: 15:15 Departure-Patient Inst. Referrals: LATASHA DE JESUS MD (PCP/Family) Primary Care Physician LIONEL MAC MD Jul 29, 2020 16:17
--- NOTE | 2020-07-29 16:31 | Diagnostic Imaging Report ---
CHEST 1 VIEW, AP/PA ONLY Indication: Weakness Comparison: 10/05/2019 Findings: Blunting of the bilateral costophrenic angles may be due to small pleural effusions versus chronic subpleural scarring. No pneumothorax. Right basilar subsegmental atelectasis. Heart is normal in size. Impression: 1. Trace bilateral pleural effusions versus chronic subpleural scar. 2. No radiographic features of pneumonia. Dictated by: Dictated on workstation # [id number]
--- NOTE | 2020-07-29 16:32 | Diagnostic Imaging Report ---
INDICATION: Pelvic pain. COMPARISON: None available. TECHNIQUE: AP view of the pelvis. FINDINGS: Diffuse osseous demineralization is present. No displaced fracture. Assessment of the right hip is suboptimal due to internal rotation and suboptimal visualization of the femoral neck. No traumatic diastases of the SI joints or symphysis pubis. Benign calcifications are present in the pelvis. IMPRESSION: No gross osseous abnormality in the pelvis. Dictated by: Dictated on workstation # [id number]
--- NOTE | 2020-07-29 16:38 | Diagnostic Imaging Report ---
INDICATION: Elbow pain COMPARISON: None available TECHNIQUE: 3 radiographs of the right elbow dated 07/29/2020. FINDINGS: No acute fracture or dislocation. No destructive osseous process. Advanced vascular calcifications. Prominent soft tissue swelling is noted overlying the olecranon. 8 mm linear radiopaque density is noted within the soft tissues anterior to the mid humerus. IMPRESSION: 1. No acute osseous abnormality. 2. Prominent soft tissue swelling overlying the olecranon. This may relate to soft tissue injury/hematoma, though olecranon bursitis would be an additional consideration. 3. An 8 mm linear density anterior to the mid humerus, which could relate to a small foreign body. 4. Advanced vascular calcifications. Dictated by: Dictated on workstation # [id number]
[2020-07-29 17:15] LABS: BILIRUBIN,URINE NEGATIVE (NEGATIVE); CLARITY,URINE CLEAR; COLOR,URINE YELLOW; GLUCOSE, URINE (UA) NEGATIVE (NEGATIVE); KETONES,URINE 1+ (NEGATIVE); LEUKOCYTE ESTERASE ,URINE NEGATIVE (NEGATIVE); NITRITE,URINE NEGATIVE (NEGATIVE); PH,URINE 5.5 (5-9); PROTEIN,URINE TRACE (NEGATIVE)
[2020-07-29 17:22] LABS: AMORPHOUS SEDIMENT,UR FEW AMOR URATES /LPF; BACTERIA,URINE NEGATIVE /HPF
[2020-07-29] MEDS ORDERED: ENOXAPARIN 80 MG/0.8 ML (LOVENOX) SYR SC ONE (18:15)
--- NOTE | 2020-07-29 18:29 | NUR ---
ateempted to call for report-no answer on 4th
--- NOTE | 2020-07-29 18:36 | NUR ---
attempted to call nurse for report; no answer
--- NOTE | 2020-07-29 19:30 | NUR ---
PT TO FLOOR AT THIS TIME, ROOM 408. NO COMPLAINTS AT THIS TIME, CALL LIGHT IN REACH.
[2020-07-29] MEDS ORDERED: 1/2 NS IV SOLUTION 1,000 ML IV PRN (19:45)
[2020-07-29] MEDS ORDERED: LORazepam INJ 2 MG/ML (ATIVAN) VIAL IM/IV PRN (19:45)
[2020-07-29] MEDS ORDERED: CATHETER FLUSH 10 ML SYR IV PRN (19:45)
[2020-07-29] MEDS ORDERED: ONDANSETRON 4 MG/2 ML (SDV) Z0FRAN IV PRN ×2 (19:45)
[2020-07-29] MEDS ORDERED: SENNA W/DOCUSATE (SENOKOT S) TABLET PO PRN (19:45)
[2020-07-29] MEDS ORDERED: LORazepam 1 MG (ATIVAN) TAB PO PRN (19:45)
[2020-07-29] MEDS ORDERED: D5 1/2 NS 1000 ML IV SOLUTION 1,000 ML IV PRN (19:45)
[2020-07-29] MEDS ORDERED: ANTACID SUSP 30 ML UDC (MYLANTA) PO PRN (19:45)
[2020-07-29] MEDS ORDERED: ACETAMINOPHEN 500 MG TAB (TYLENOL) PO PRN (19:45)
[2020-07-29] MEDS ORDERED: ONDANSETRON 4 MG (ZOFRAN) ORAL DISSOLVE TAB SL PRN (19:45)
[2020-07-29 20:05] VITALS: BP 125/60
--- NOTE | 2020-07-29 20:16 | NUR ---
RECEIVED CALL FROM PT VLADIMIR BLAIR. ASKED PT IF IT WAS ALRIGHT WITH HIM FOR HER TO HAVE INFORMATION ABOUT HIS STAY PT REPLIED YES AND SET UP PT PASSWORD "MARCOURTNEY". DANIELLEECE ROSSY MADE AWARE OF PASSWORD AND WAS UPDATED WITH INFORMATION . THE NIECE ALSO STATED THAT [place] IS NOT TO BE GIVEN ANY INFORMATION ABOUT PT.
[2020-07-29 21:00] VITALS: BP 125/60
[2020-07-29] MEDS: MAGNESIUM OXIDE (MAG-OX)400 MG TAB PO SCH (22:14)
[2020-07-29] MEDS: CATHETER FLUSH 10 ML SYR IV SCH (22:16)
--- NOTE | 2020-07-29 22:35 | NUR ---
PT UNABLE TO PROVIDE HOME MED INFORMATION, UNABLE TO COMPLETE MED REC AT THIS TIME.
--- NOTE | 2020-07-29 23:22 | NUR ---
TELESITTERS ARE ALL IN USE AT THIS TIME, UNABLE TO LOCATE AVAILABLE TELESITTER. PT RESTING COMFORTABLY IN BED NO S/SX OF DISTRESS OR ALCOHOL WITHDRAWAL NOTED AT THIS TIME. PT ROOM RIGHT NEXT TO NURSES STATION, AND VISIBLE THROUGH STATION WINDOW. PT IS ASLEEP AND EASY TO AROUSE. WILL CONTINUE TO MONITOR CLOSELY FOR CHANGES FROM BASELINE.
[2020-07-29 23:30] VITALS: BP 11/79
[2020-07-30 04:00] VITALS: BP 119/71
[2020-07-30 05:30] LABS: BASOPHILS % (AUTO) 1 % (0-10); EOSINOPHILS # (AUTO) 0.2 10^3/uL (0.0-0.3); EOSINOPHILS % (AUTO) 3 % (0-10); HEMATOCRIT 25 % (40-54); HEMOGLOBIN 7.9 g/dL (13.3-17.7); LYMPHOCYTES # (AUTO) 1.5 10^3/uL (1.0-4.0); LYMPHOCYTES % (AUTO) 26 % (12-44); MEAN CORPUSCULAR HEMOGLOBIN 31 pg (25-34); MEAN CORPUSCULAR HGB CONC 32 g/dL (32-36); MEAN CORPUSCULAR VOLUME 98 fL (80-99); MEAN PLATELET VOLUME 9.6 fL (9.0-12.2); MONOCYTES # (AUTO) 0.4 10^3/uL (0.0-1.0); MONOCYTES % (AUTO) 6 % (0-12); NEUTROPHILS # (AUTO) 3.7 10^3/uL (1.8-7.8); NEUTROPHILS % (AUTO) 64 % (42-75); PLATELET COUNT 238 10^3/uL (130-400); WHITE BLOOD COUNT 5.8 10^3/uL (4.3-11.0)
[2020-07-30 05:31] LABS: ALBUMIN 2.8 GM/DL (3.2-4.5); CHLORIDE 98 MMOL/L (98-107); POTASSIUM 4.8 MMOL/L (3.6-5.0); SODIUM 135 MMOL/L (135-145)
[2020-07-30 05:33] LABS: CALCIUM 8.3 MG/DL (8.5-10.1)
[2020-07-30 05:34] LABS: GLUCOSE 108 MG/DL (70-105); TOTAL PROTEIN 5.6 GM/DL (6.4-8.2)
[2020-07-30 05:35] LABS: CARBON DIOXIDE 25 MMOL/L (21-32)
[2020-07-30 05:36] LABS: BILIRUBIN,TOTAL 0.5 MG/DL (0.1-1.0)
[2020-07-30 05:37] LABS: ALKALINE PHOSPHATASE 226 U/L (40-136); CREATININE SERUM 0.71 MG/DL (0.60-1.30); GFR ESTIMATED > 60
[2020-07-30 05:38] LABS: BUN/CREATININE RATIO 32
[2020-07-30 05:40] LABS: ALANINE AMINOTRANSFERASE 12 U/L (0-55)
[2020-07-30] MEDS: CATHETER FLUSH 10 ML SYR IV SCH ×3 (06:20→21:27)
[2020-07-30] MEDS: THIAMINE 100 MG (VITAMIN B-1) TAB PO SCH (06:24)
[2020-07-30] MEDS: MULTIVIT W/MINERALS TAB (THERAGRAN M) PO SCH (06:24)
[2020-07-30] MEDS ORDERED: FLU QUAD HIGH DOSE 240 MCG/0.7 ML 2020-21 (FLUZONE) IM ONE (06:45)
[2020-07-30 08:00] VITALS: BP 118/75
[2020-07-30] MEDS: FOLIC ACID 1 MG TAB PO SCH (08:43)
[2020-07-30] MEDS: DIGOXIN 0.125 MG (LANOXIN) TAB PO SCH (08:43)
[2020-07-30] MEDS: MAGNESIUM OXIDE (MAG-OX)400 MG TAB PO SCH ×2 (08:45→21:26)
[2020-07-30] MEDS ORDERED: HYDR-3817 PO (10:24)
[2020-07-30 12:00] VITALS: BP 104/55
--- NOTE | 2020-07-30 13:05 | Physical Therapy Evaluation ---
PT Evaluation-General Medical Diagnosis Admission Date Jul 29, 2020 at 17:54 Medical Diagnosis: debility Onset Date: Jul 29, 2020 Therapy Diagnosis Therapy Diagnosis: weakness Height/Weight Height (Feet): 5 Height (Inches): 11.00 Weight (Pounds): 179 Weight (Ounces): 9.0 Precautions Precautions/Isolations: Contact Isolation Referral Physician: Ad Reason for Referral: Evaluation/Treatment Medical History Pertinent Medical History: Atrial Fib, Alcoholism, DM, GERD, HTN, Smoking Current History Pt had been in recliner 1-2 weeks with decreasing ability to get up. Upon admission to ER, pt was heavily soiled and it was apparent he had not been tended too. Admitted for medical care. Reviewed History: Yes Social History Home: Single Level Current Living Status: Alone (has a caregiver) Prior Prior Level of Function SCALE: Activities may be completed with or without assistive devices. 8-Lixzlfdrbx-iedclss completes the activity by him/herself with no assistance from a helper. 5-Set-up or Clean-up Assistance-helper sets up or cleans up; patient completes activity. [place] assists only prior to or following the activity. 4-Supervision or Touching Assistance-helper provides verbal cues and/or touching/steadying and/or contact guard assistance as patient completes activity. Assistance may be provided throughout the activity or intermittently. 3-Partial/Moderate Assistance-helper does LESS THAN HALF the effort. [place] lifts, holds or supports trunk or limbs, but provides less than half the effort. 2-Substantial/Maximal Assistance-helper does MORE THAN HALF the effort. [place] lifts or holds trunk or limbs and provides more than half the effort. 3-Jjkdglvxc-ntxsxy does ALL the effort. Patient does none of the effort to complete the activity. Or, the assistance of 2 or more helpers is required for the patient to complete the activity. If activity was not attempted, code reason: 7-Patient Refused. 9-Not Applicable-not attempted and the patient did not perform the activity before the current illness, exacerbation or injury. 10-Not Attempted due to Environmental Limitations-(lack of equipment, weather restraints, etc.). 88-Not Attempted due to Medical Conditions or Safety Concerns. Pt reports he is typically able to walk with a cane or walker, "but not very well." PT Evaluation-Current Subjective Agrees to PT. Denies pain. Objective Patient Orientation: Person, Place, Time, Situation Attachments: Oxygen (in situ during and post treatment. ) ROM/Strength ROM Lower Extremities WFL Strength Lower Extremities 3/5 Integumentary/Posture Integumentary refer to nursing notes. Bowel Incontinence: Yes Bladder Incontinence: Yes Posture thoracic kyphosis, head forward. Neuromuscular (Tone, Coordination, Reflexes) WFL Sensory Vision: Functional Hearing: Functional Transfers Lying to Sitting/Side of Bed(Q: 3 Sit to Stand (QC): 3 Chair/Sja-cd-Lvdmx Xfer(QC): 3 Min assist with functional transfers with cues to sequence and initiate. Unsteady in static and dynamic standing with use of FWW and close CG to min assist. Gait Does the Patient Walk?: Yes Balance Sitting Static: Fair Sitting Dynamic: Fair Standing Static: Fair Standing Dynamic: Fair Treatment Out of bed to stand EOB then transfer to commode. Pt on commode post treatment with nurse tech and nurse present. Assessment/Needs Functional weakness noted. Will benefit from skilled PT to promote strength and mobiltiy to allow him to return home as beforel. Rehab Potential: Guarded PT Custodial Goals Custodial Goals PT Applique Cutter Goals Time Frame: Aug 06, 2020 Sit to Lying (QC): 6 Lying-Sitting on Side/Bed(QC): 6 Sit to Stand (QC): 6 Chair/Pwg-qk-Pietd Xfer(QC): 6 Walk 50ft with 2 Turns (QC): 6 PT Plan Problem List Problem List: Activity Tolerance, Functional Strength, Safety, Balance, Gait, Transfer, Bed Mobility Treatment/Plan Treatment Plan: Continue Plan of Care Treatment Plan: Bed Mobility, Education, Functional Activity Mushtaq, Functional Strength, Gait, Safety, Therapeutic Exercise, Transfers Treatment Duration: Aug 06, 2020 Frequency: 6 times per week Patient and/or Family Agrees t: Yes Safety Risks/Education Patient Education: Transfer Techniques, Safety Issues Teaching Recipient: Patient Teaching Methods: Discussion Response to Teaching: Reinforcement Needed Discharge Recommendations Therapy Discharge Recommendati: Post Acute PT Time/GCodes Time In: 1210 Time Out: 1225 Total Billed Treatment Time: 15 Total Billed Treatment visit EVM 15 BUD JOVEL PT Jul 30, 2020 13:05
--- NOTE | 2020-07-30 13:47 | History & Physical-Hospitalist ---
History of Present Illness HPI/Chief Complaint This is a 74-year-old unkept white male who was brought to the emergency room after being found in his chair covered in feces and urine. He had been unable to get up and walk for the last week. He does have a healthcare worker Carlene who was supposed to be coming and checking on him but evidently that has not been working out recently. He does have a history of heavy alcohol intake remittent Ronny in the past and he does admit to perhaps inviting periodically. He was found to have an pressure ulcer. He does not realize in [place] but he does know that this is the fifth and that it is Saturday in July. He says that since he had an amputation of his right little toe and a ankle fracture he has been much less ambulatory. He denies having any weight loss but he has obvious temporal wasting and some cachexia around his shoulders. Source: patient Exam Limitations: no limitations Date Seen 07/30/20 Time Seen by a Provider: 13:00 Attending Physician Steevn Duong MD PCP Twan Nowak MD Referring Physician Date of Admission Jul 29, 2020 at 17:54 Home Medications & Allergies Home Medications Reviewed patient Home Medication Reconciliation performed by pharmacy medication reconciliations laser/electro optics technician and/or nursing. Patients Allergies have been reviewed. 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) Alcohol Use: Regular Use Alcohol Beverage of Choice: Whiskey, Wine Recreational Drug Use: No Smoking Status: Current Everyday Smoker Type Used: Cigars 2nd Hand Smoke Exposure: Yes Recent Foreign Travel: No Contact w/other who traveled: No Recent Hopitalizations: No Recent Infectious Disease Expo: No Immunizations Up To Date Tetanus Booster (TDap): Unknown Date of Pneumonia Vaccine: Aug 26, 2015 Date of Influenza Vaccine: May 26, 2019 Seasonal Allergies Seasonal Allergies: No Past Medical History Surgeries: Orthopedic, Tonsillectomy Currently Using CPAP: No Currently Using BIPAP: No Cardiac: Atrial Fibrillation, Cardiomyopathy, Hypertension Gastrointestinal: Gastroesophageal Reflux, Liver Disease/Jaundice, Gastrointestinal Bleed, Hepatitis Endocrine: Diabetes, Non-Insulin dep Loss of Vision: Denies Hearing Impairment: Denies Psychosocial: Anxiety, Depression History of Blood Disorders: Yes (anemia) Family History Diabetes mellitus G8 BROTHER FH: testicular cancer 19 FATHER Unknown cancer 19 MOTHER No Pertinent Family Hx, Cancer, Diabetes Review of Systems Constitutional: see HPI, weakness, weight loss EENTM: no symptoms reported Respiratory: dyspnea on exertion Cardiovascular: no symptoms reported Gastrointestinal: no symptoms reported Genitourinary: decreased output Musculoskeletal: muscle weakness Skin: other (Vitiligo) Psychiatric/Neurological: No Symptoms Reported Physical Exam Physical Exam Vital Signs Vital Signs - First Documented 07/29/20 07/29/20 15:02 19:15 Temp 35.8 Pulse 105 Resp 20 B/P (MAP) 129/69 (89) Pulse Ox 100 O2 Delivery Room Air O2 Flow Rate 2.00 Capillary Refill : Less Than 3 Seconds Height, Weight, BMI Height: 5'11.00" Weight: 179lbs. 9.0oz. 81.546505ad; 21.01 BMI Method:Estimated General Appearance: Chronically ill, Other (Unkept) HEENT: Other (Poor dentition) Neck: Limited Range of Motion Respiratory: Crackles, Rales Cardiovascular: Irregularly Irregular, Tachycardia Gastrointestinal: Normal Bowel Sounds, No Organomegaly, Non Tender, Soft Rectal: Deferred Back: Normal Inspection Extremity: Pedal Edema, Other (Evidence of chronic venous stasis changes and deformity of the right ankle secondary to a fracture and amputation with a clean base of the right fifth lower digit) Neurologic/Psychiatric: Alert, No Motor/Sensory Deficits, Normal Mood/Affect Skin: Pallor Results Results/Procedures Labs Laboratory Tests 07/29/20 15:05 07/30/20 05:10 Patient resulted labs reviewed. 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
[2020-07-30 17:00] VITALS: BP 103/59
[2020-07-30 17:03] VITALS: BP 103/59
[2020-07-30 19:15] VITALS: BP 94/50
[2020-07-30] MEDS: LORazepam INJ 2 MG/ML (ATIVAN) VIAL IV PRN (21:26)
[2020-07-31 00:18] VITALS: BP 106/64
[2020-07-31] MEDS: THIAMINE 100 MG (VITAMIN B-1) TAB PO SCH (05:46)
[2020-07-31] MEDS: MULTIVIT W/MINERALS TAB (THERAGRAN M) PO SCH (05:46)
[2020-07-31] MEDS: CATHETER FLUSH 10 ML SYR IV SCH ×3 (05:46→20:48)
[2020-07-31 08:00] VITALS: BP 172/116
[2020-07-31] MEDS: FOLIC ACID 1 MG TAB PO SCH (08:43)
[2020-07-31] MEDS: DIGOXIN 0.125 MG (LANOXIN) TAB PO SCH (08:43)
[2020-07-31] MEDS: MAGNESIUM OXIDE (MAG-OX)400 MG TAB PO SCH ×2 (08:44→20:45)
[2020-07-31 09:00] VITALS: BP 109/98
--- NOTE | 2020-07-31 09:15 | NUR ---
DAUGHTER AMY PHONED TO GET UPDATE AND WOULD LIKE TO CALL WITH UPDATE ON PATIENT. THIS RN INFORMED NOT COMBATIVE AT THIS TIME AND IS COMFORTABLE SLEEPING AND HAS BEEN COOPERATIVE WITH THIS RN. WILL CONTINUE TO MONITOR PATIENT
[2020-07-31 10:02] LABS: HEMOGLOBIN 7.4 g/dL (13.3-17.7); MEAN PLATELET VOLUME 10.1 fL (9.0-12.2); WHITE BLOOD COUNT 5.1 10^3/uL (4.3-11.0)
[2020-07-31 10:23] LABS: ALANINE AMINOTRANSFERASE 13 U/L (0-55); ALBUMIN 2.6 GM/DL (3.2-4.5); ALKALINE PHOSPHATASE 187 U/L (40-136); BILIRUBIN,TOTAL 0.3 MG/DL (0.1-1.0); BUN/CREATININE RATIO 24; CALCIUM 8.2 MG/DL (8.5-10.1); CARBON DIOXIDE 26 MMOL/L (21-32); CHLORIDE 96 MMOL/L (98-107); CREATININE SERUM 0.75 MG/DL (0.60-1.30); GFR ESTIMATED > 60; GLUCOSE 180 MG/DL (70-105); POTASSIUM 4.9 MMOL/L (3.6-5.0); SODIUM 131 MMOL/L (135-145); TOTAL PROTEIN 5.3 GM/DL (6.4-8.2)
--- NOTE | 2020-07-31 11:56 | Progress Note - Hospitalist ---
Subjective HPI/CC On Admission Date Seen by Provider: Jul 31, 2020 Time Seen by Provider: 10:00 This is a 74-year-old unkept white male who was brought to the emergency room after being found in his chair covered in feces and urine. He had been unable to get up and walk for the last week. He does have a healthcare worker Carlene who was supposed to be coming and checking on him but evidently that has not been working out recently. He does have a history of heavy alcohol intake remittent Ronny in the past and he does admit to perhaps inviting periodically. He was found to have an pressure ulcer. He does not realize in [place] but he does know that this is the fifth and that it is Saturday in July. He says that since he had an amputation of his right little toe and a ankle fracture he has been much less ambulatory. He denies having any weight loss but he has obvious temporal wasting and some cachexia around his shoulders. Subjective/Events-last exam Patient is inappropriate this morning but does not really appear to be confused. He ate well yesterday has some diarrhea. Otherwise is really without complaint. Review of Systems Gastrointestinal: Diarrhea Neurological: Weakness Objective Exam Vital Signs Vital Signs Date Time Temp Pulse Resp B/P (MAP) Pulse Ox O2 Delivery O2 Flow Rate FiO2 07/31/20 09:00 98 109/98 (102) 07/31/20 09:00 Room Air 07/31/20 08:00 36.0 16 97 07/30/20 08:00 2.00 Capillary Refill : Less Than 3 Seconds General Appearance: Chronically ill Neck: Limited Range of Motion Respiratory: Chest Non Tender, No Accessory Muscle Use, No Respiratory D istress, Rhonci Cardiovascular: Regular Rate, Rhythm, No Edema, No Gallop Gastrointestinal: Normal Bowel Sounds, No Organomegaly, Soft Back: Normal Inspection Extremity: Pedal Edema, Other (Phonic venous stasis changes with deformity of the right foot with the right distal toe amputation) Neurologic/Psychiatric: Alert, No Motor/Sensory Deficits, Normal Mood/Affect Skin: Pallor Results/Procedures Lab Laboratory Tests 07/31/20 09:52 Patient resulted labs reviewed. 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
[2020-07-31 16:27] VITALS: BP 106/72
[2020-07-31] MEDS: PREGABALIN 50 MG (LYRICA) CAP PO SCH (20:45)
[2020-07-31] MEDS: MIRTAZAPINE 15 MG (REMERON) TAB PO SCH (20:46)
[2020-07-31 23:23] VITALS: BP 114/70
[2020-08-01] MEDS: LORazepam INJ 2 MG/ML (ATIVAN) VIAL IV PRN ×3 (01:26→05:16)
--- NOTE | 2020-08-01 02:45 | NUR ---
PT NOTED TO BE EXPERIENCING INCREASED SYMPTOMS OF ALCOHOL WITHDRAWAL THIS SHIFT. STATED HE SAW "SPOOKS" IN HIS ROOM AND THAT HE CAN HEAR THEM BUT HE IS NOT FRIGHTENED BY THEM AND THAT "THERE ARE OTHER PTS THAT SEE THEM TOO." PT ALSO NOTED TO BE DRINKING FROM URINAL WHEN THIS NURSE ENTERED ROOM AT 0300, EXPLAINED TO PT THAT THE URINAL WAS FOR URINATING INTO AND GAVE PT HIS WATER CUP. INCONTINENCE CARE PROVIDED ALSO AT THIS TIME. CONTINUING TO MONITOR PT VIA CIWA SCALE.
[2020-08-01 04:43] VITALS: BP 141/69
[2020-08-01] MEDS: CATHETER FLUSH 10 ML SYR IV SCH ×3 (06:21→21:51)
--- NOTE | 2020-08-01 06:49 | NUR ---
PT RESTING IN BED WITH EYES CLOSED, APPEARS TO BE COMFORTABLE, NO TREMORS NOTED AT THIS TIME.
[2020-08-01 09:00] VITALS: BP 127/75
[2020-08-01] MEDS ORDERED: DIGOXIN 0.125 MG (LANOXIN) TAB PO SCH (09:00)
--- NOTE | 2020-08-01 10:08 | Physical Therapy Progress Note ---
Therapy Progress Note Patient received ativan throughout the night and is currently too sedated to safely participate with skilled therapy. Will attempt later today. FIORELLA CHAVEZ PT Aug 01, 2020 10:08
--- NOTE | 2020-08-01 10:59 | Physical Therapy Progress Note ---
Therapy Progress Note Patient remains sedated from ativan and not safe to participate with therapy. Will continue to monitor patient. FIORELLA CHAVEZ PT Aug 01, 2020 10:59
[2020-08-01 12:00] VITALS: BP 134/78
--- NOTE | 2020-08-01 12:37 | Progress Note ---
Subjective Subjective/Events-last exam Afebrile, received 6 mg IV ativan total, is drowsy this morning, answers name but no other questions. Objective Exam Last Set of Vital Signs Vital Signs Date Time Temp Pulse Resp B/P (MAP) Pulse Ox O2 Delivery O2 Flow Rate FiO2 08/01/20 09:00 36.4 95 22 127/75 (92) 94 Room Air 07/30/20 08:00 2.00 Capillary Refill : Less Than 3 Seconds I&O l Intake and Output 08/01/20 00:00 Intake Total 1865 ml Balance 1865 ml Intake Oral 1865 ml # Voids 6 # Urine Diapers 2 # Bowel Movements 2 General: Other (lethargic, but answers to name) Lungs: Clear to Auscultation, Normal Air Movement Heart: Regular Rate, No Murmurs Extremities: No Edema Neuro: Other (oriented to self only) Assessment/Plan Assessment/Plan (1) Alcohol abuse Status: Chronic Assessment & Plan: Alcohol withdrawal protocol, required 6 mg ativan last 24 hours (2) Confusion Status: Acute Assessment & Plan: Possibly related to alcohol withdrawal, CT head without acu te findings. (3) Atrial fibrillation Status: Chronic Assessment & Plan: Possibly not taking home medications, resumed home rivaroxaban, diltiazem and digoxin Qualifiers: Qualified Codes: I48.91 - Unspecified atrial fibrillation (4) Anemia Status: Chronic Assessment & Plan: Present for a year or more, macrocytic, suspect alcohol related, will check B12, folate, iron studies and peripheral smear. On rivaroxaban, will also check stool occult blood. Qualifiers: Qualified Codes: D64.9 - Anemia, unspecified (5) Debility Status: Acute Assessment & Plan: PT/OT, may need placement for d/c. (6) Stage II decubitus ulcer Status: Acute Assessment & Plan: Wound care Qualifiers: Qualified Codes: L89.152 - Pressure ulcer of sacral region, stage 2 (7) Generalized weakness Status: Acute Assessment & Plan: PT (8) Type 2 diabetes mellitus Status: Chronic Assessment & Plan: Home meds, diabetic diet, sliding scale insulin. (9) DVT prophylaxis Assessment & Plan: Rivaroxaban Clinical Quality Measures DVT/VTE Risk/Contraindication: Risk Factor Score Per Nursin RFS Level Per Nursing on Admit: 3=High AUSTEN DARBY MD Aug 01, 2020:37
[2020-08-01] MEDS ORDERED: HYDR-3817 PO (13:10)
[2020-08-01] MEDS ORDERED: FOLIC ACID PO (13:10)
[2020-08-01] MEDS ORDERED: FURO40TA4 PO (13:10)
[2020-08-01] MEDS ORDERED: FENT1PAT58 TD (13:10)
[2020-08-01] MEDS ORDERED: MIRT15TA6 PO (13:10)
[2020-08-01] MEDS ORDERED: MELA5TAB14 PO (13:11)
--- NOTE | 2020-08-01 13:14 | NUR ---
SPOKE WITH THE PTS NIECE (PRIYA) AND GOT A MEDICATION LIST FROM [facility] TO COMPLETE THE MED REC [facility] FILLED THE FOLLOWIN05-25-2020 XARELTO 20MG #30/30DS- I INCLUDED THE PAST DUE FILL ON THE MED REC 05-25-2020 CARTIA XT 240 #30/30DS- I INCLUDED THE PAST DUE FILL ON THE MED REC 06-14-2020 FENTANYL 50MCG PATCH #10/30DS 06-17-2020 NORCO 7.5/325MG #84/28DS 07-12-2020 DIGOXIN 125MCG #30/30DS 07-12-2020 LISINOPRIL 10MG #30/30DS 07-12-2020 DOCUSATE 100MG #60/30DS 07-12-2020 FUROSEMIDE 40MG #30/30DS 07-12-2020 MELATONIN 5MG #90/90DS [id number] MIRTAZAPINE 15MG #30/30DS PT COULD NOT GIVE ME ANY INFORMATION ABOUT HIS MEDICATIONS WHEN I CALLED HIS ROOM PHONE, AND WHEN I ASKED PRIYA ABOUT THE FENTANYL PATCH CHENTED DID NOT KNOW THE LAST TIME A PATCH WAS APPLIED.
[2020-08-01] MEDS: MULTIVIT W/MINERALS TAB (THERAGRAN M) PO SCH (13:52)
[2020-08-01] MEDS: DIGOXIN 0.125 MG (LANOXIN) TAB PO SCH (13:52)
[2020-08-01] MEDS: FOLIC ACID 1 MG TAB PO SCH (13:52)
[2020-08-01] MEDS: THIAMINE 100 MG (VITAMIN B-1) TAB PO SCH (13:52)
[2020-08-01] MEDS: MAGNESIUM OXIDE (MAG-OX)400 MG TAB PO SCH (13:53)
[2020-08-01] MEDS: PANTOPRAZOLE 40 MG (PROTONIX) TAB PO SCH (13:53)
[2020-08-01] MEDS: PREGABALIN 50 MG (LYRICA) CAP PO SCH (13:53)
[2020-08-01] MEDS: lisINopril 10 MG (PRINIVIL) TABLET PO SCH (13:54)
[2020-08-01] MEDS: RIVAROXABAN 20 MG TABLET (XARELTO) PO SCH (13:54)
--- NOTE | 2020-08-01 13:55 | NUR ---
"RD ASSESSMENT PMHx: heavy ETOH use; afib; HTN; GERD; liver disease; hepatitis; DM; PT INTERACTION: Pt was semi-awake and pleasant during consult for MST score. Note pt has AMS, per chart review. Pt states current appetite is good. Note avg PO intake 100% x2d, per chart review. Pt did not say what diet he follows at home, and did not state any issues with chewing/swallowing food even when redirected. Pt states some recent issues with constipation/diarrhea. Note last BM was 07/31, and pt currently on bowel regimen of senna PRN, per chart review. Pt did not answer questions about current level of DM management when asked and redirected. Note unable to determine recent HbA1c, per chart review. Pt states unsure of recent wt changes. Not recent 15# wt loss x2mon, per chart review. Note this is significant wt loss at 8.4% x2mon. Upon visual assessment, pt appears to be undernourished with visible signs of muscle/fat wasting, and a BMI of 21.0 (Underweight BMI for age). Note presence of wound (coccyx/sacrum), per chart review. Given PO intake, wt hx, and visual assessment, pt meets criteria for malnutrition, per ASPEN guidelines. ABNORMAL NUTRITION-RELATED LAB VALUES LOW: Na 131; Cl 96; Ca 8.2; Pro 5.3; alb 2.6; HIGH: glu 180; Est. kcal needs: 6658-6013 kcal | 30-35 kcal/kg Est. Pro needs: 89-104 g Pro | 0.8-1.0 g Pro/kg PES STATEMENT: Inadequate protein intake (NI-5.6.1) related to increased protein needs as evidenced by presence of wounds (coccyx/sacrum). Acute disease related malnutrition (undernutrition) (NC-4.1.3) related to inadequate intake of protein/energy as evidenced by loss of subcutaneous fat, muscle loss, and unintentional wt loss of 8.4% x2mon. INTERVENTION: Continue with current diet order of Regular diet. Continue with current supplementation order of Ensure Enlive (vary) with meals TID. Provides 350 kcal and 20 g Pro per serving, for perceived benefit to wound healing. Did not offer diet education on DM management d/t pt's AMS. May attempt to offer again when pt is more lucid. Encouraged pt to eat when able. Will continue to follow and reassess as pt needs, intake, and status change. Ramesh Esquivel, MS RD LD [phone] cell"
--- NOTE | 2020-08-01 14:32 | Physical Therapy Progress Note ---
Therapy Progress Note Patient continues to be too sedated to safely participate with therapy. Will attempt in FIORELLA Carty PT Aug 01, 2020 14:32
[2020-08-01 15:38] VITALS: BP 102/63
[2020-08-01] MEDS: inSUlin ASPART (NovoLOG) 1 UNIT/0.01 ML (CHARGE PER UNIT) SC SCH ×2 (15:38→21:43)
--- NOTE | 2020-08-01 15:45 | NUR ---
CM/SS attempted to visit with patient for social service consult. The patient was resting and still had some sedation from Ativan overnight. CM/SS did not attempt to talk with patient as this time. APS report: [facility]: CM/SS faxed referral. Awaiting acceptance/denial. DPOA: The patient has 2 agents for DPOA Chantal and Anuja. CM/SS contacted the patient's DPOA Chantal to discuss discharge planning. Chantal reports that she is "upset and appalled" by what the patient's private paid caregiver did. CM/SS was unaware of the patient's current situation. According to Chantal, she has been private paying a caregiver named Dorothy Jolley. Chantal stated that at first she believes that Dorothy was doing a good job; however, she believes things started to change after home health discharged from services. Chantal reports that Dorothy was just giving the patient Whiskey and protein shakes; therefore, he has lost a lot of weight. She states the Dorothy wasn't cleaning the home (Now has bed bugs), changing the patient, feeding him properly. Chantal claims neglect. She did verbalize that sometimes it would be "weeks" before she was able to talk with him because she believes they put his phone on silent. Chantal reports that there is a homeless woman named Kasie who is eating his meals on wheels and staying in the home. This sw and Chantal discussed placement to a long term home. She states Anuja will likely make that decision. KERVIN/SOHEILA then received call from Anuja. KERVIN/SS gave update on what was discussed and informed her of report made. She would like this sw to send referral to [facility].
[2020-08-01 19:21] VITALS: BP 113/71
[2020-08-01] MEDS: MIRTAZAPINE 15 MG (REMERON) TAB PO SCH (21:51)
[2020-08-02 00:11] VITALS: BP 108/77
[2020-08-02] MEDS: LORazepam INJ 2 MG/ML (ATIVAN) VIAL IV PRN ×2 (00:52→02:08)
[2020-08-02 04:07] VITALS: BP 124/69
[2020-08-02 05:58] LABS: BASOPHILS # (AUTO) 0.1 10^3/uL (0.0-0.1); BASOPHILS % (AUTO) 1 % (0-10); EOSINOPHILS # (AUTO) 0.1 10^3/uL (0.0-0.3); EOSINOPHILS % (AUTO) 2 % (0-10); HEMATOCRIT 25 % (40-54); HEMOGLOBIN 8.3 g/dL (13.3-17.7); LYMPHOCYTES # (AUTO) 1.7 10^3/uL (1.0-4.0); LYMPHOCYTES % (AUTO) 22 % (12-44); MEAN CORPUSCULAR HEMOGLOBIN 32 pg (25-34); MEAN CORPUSCULAR HGB CONC 33 g/dL (32-36); MEAN CORPUSCULAR VOLUME 97 fL (80-99); MEAN PLATELET VOLUME 9.9 fL (9.0-12.2); MONOCYTES # (AUTO) 0.7 10^3/uL (0.0-1.0); MONOCYTES % (AUTO) 9 % (0-12); NEUTROPHILS # (AUTO) 4.9 10^3/uL (1.8-7.8); NEUTROPHILS % (AUTO) 66 % (42-75); PLATELET COUNT 233 10^3/uL (130-400); WHITE BLOOD COUNT 7.4 10^3/uL (4.3-11.0)
[2020-08-02 06:05] LABS: CHLORIDE 98 MMOL/L (98-107); POTASSIUM 4.8 MMOL/L (3.6-5.0); SODIUM 133 MMOL/L (135-145)
[2020-08-02 06:06] LABS: CALCIUM 8.2 MG/DL (8.5-10.1)
[2020-08-02 06:07] LABS: GLUCOSE 100 MG/DL (70-105)
[2020-08-02 06:08] LABS: CARBON DIOXIDE 25 MMOL/L (21-32)
[2020-08-02 06:11] LABS: CREATININE SERUM 0.68 MG/DL (0.60-1.30); GFR ESTIMATED > 60
[2020-08-02 06:12] LABS: BUN/CREATININE RATIO 21
[2020-08-02] MEDS: inSUlin ASPART (NovoLOG) 1 UNIT/0.01 ML (CHARGE PER UNIT) SC SCH ×4 (06:27→21:26)
[2020-08-02] MEDS: MULTIVIT W/MINERALS TAB (THERAGRAN M) PO SCH (06:39)
[2020-08-02] MEDS: CATHETER FLUSH 10 ML SYR IV SCH ×3 (06:39→23:08)
[2020-08-02 08:00] VITALS: BP 126/85
--- NOTE | 2020-08-02 08:23 | Progress Note ---
ANGELA ORDAZ MED STUDENT 08/02/20 0823: Subjective Subjective/Events-last exam Pt is only oriented to self this AM. When asked about where he was, he stated [place], [place]. Pt was unable to answer most questions. Pt was actively trying to answer questions today. Pt states that he is not feeling too bad today. Denies any pain. Focused Exam Respiratory: Chest Non Tender, Lungs Clear, Normal Breath Sounds, No Accessory Muscle Use, No Respiratory Distress Cardiovascular: Regular Rate, Rhythm, No Murmur, Normal Peripheral Pulses Peripheral Pulses: 2+ Carotid (R), 2+ Carotid (L); 1+ Dorsalis Pedis (R), 1+ Left Dors-Pedis (L); 2+ Radial Pulses (R), 2+ Radial Pulses (L) Skin: normal color, warm/dry Objective Exam Last Set of Vital Signs Vital Signs Date Time Temp Pulse Resp B/P (MAP) Pulse Ox O2 Delivery O2 Flow Rate FiO2 08/02/20 04:07 37.5 107 20 124/69 (87) 94 Room Air 07/30/20 08:00 2.00 Capillary Refill : Less Than 3 Seconds I&O Intake and Output 08/02/20 00:00 Intake Total 100 ml Balance 100 ml Intake Oral 100 ml # Voids 7 General: Mild Distress HEENT: PERRLA, EOMI Neck: No LAD Lungs: Clear to Auscultation, Normal Air Movement Heart: Regular Rate, No Murmurs Abdomen: Normal Bowel Sounds, Soft, No Tenderness Extremities: No Cyanosis, No Edema, Normal Pulses, Other (R leg and ankle tenderness) Results/Procedures Lab Laboratory Tests 08/01/20 13:30: Iron Level 13L, Total Iron Binding Capacity 212L, Unsaturated Iron Binding Capacity 199, Transferrin % Saturation 6L, Ferritin 67.4, Vitamin B12 Level 16 67H, Folate 13.4 08/01/20 15:36: Glucometer 117H 08/01/20 20:44: Glucometer 102 08/02/20 05:20: White Blood Count 7.4, Red Blood Count 2.58L, Hemoglobin 8.3L, Hematocrit 25L, Mean Corpuscular Volume 97, Mean Corpuscular Hemoglobin 32, Mean Corpuscular Hemoglobin Concent 33, Red Cell Distribution Width 15.7H, Platelet Count 233, Mean Platelet Volume 9.9, Immature Granulocyte % (Auto) 0, Neutrophils (%) (Auto) 66, Lymphocytes (%) (Auto) 22, Monocytes (%) (Auto) 9, Eosinophils (%) (Auto) 2, Basophils (%) (Auto) 1, Neutrophils # (Auto) 4.9, Lymphocytes # (Auto) 1.7, Monocytes # (Auto) 0.7, Eosinophils # (Auto) 0.1, Basophils # (Auto) 0.1, Immature Granulocyte # (Auto) 0.0, Sodium Level 133L, Potassium Level 4.8, Chloride Level 98, Carbon Dioxide Level 25, Anion Gap 10, Blood Urea Nitrogen 14, Creatinine 0.68, Estimat Glomerular Filtration Rate > 60, BUN/Creatinine Ratio 21, Glucose Level 100, Calcium Level 8.2L Assessment/Plan Assessment/Plan (1) Alcohol abuse Status: Chronic Assessment & Plan: Alcohol withdrawal protocol, required 6 mg ativan last 24 hours 08/02- continue alcohol withdrawal protocol, required 2 mg ativan in the last 24 hours. (2) Confusion Status: Acute Assessment & Plan: Possibly related to alcohol withdrawal, CT head without acute findings. 08/02- still possibly related to alcohol withdrawal, regulating sleeping patterns and activities of daily living. (3) Atrial fibrillation Status: Chronic Assessment & Plan: Possibly not taking home medications, resumed home rivaroxaban, diltiazem and digoxin 08/02- continue home dosage of rivaroxaban, diltiazem and digoxin Qualifiers: Qualified Codes: I48.91 - Unspecified atrial fibrillation (4) Anemia Status: Chronic Assessment & Plan: Present for a year or more, macrocytic, suspect alcohol related, will check B12, folate, iron studies and peripheral smear. On rivaroxaban, will also check stool occult blood. 08/02- checking fecal occult blood, vit B12 was high at 1667, folate was normal at 13.4. iron low at 13, TIBC low at 212, Ferritin normal at 67.4. Will continue to monitor. Qualifiers: Qualified Codes: D64.9 - Anemia, unspecified (5) Debility Status: Acute Assessment & Plan: PT/OT, may need placement for d/c. 08/02- continue PT/OT, placement preparations for [facility] (6) Stage II decubitus ulcer Status: Acute Assessment & Plan: Wound care 08/02- continue wound care Qualifiers: Qualified Codes: L89.152 - Pressure ulcer of sacral region, stage 2 (7) Generalized weakness Status: Acute Assessment & Plan: PT 08/02- continue PT/OT (8) Type 2 diabetes mellitus Status: Chronic Assessment & Plan: Home meds, diabetic diet, sliding scale insulin. 08/02- continue home medications, diabetic diet, and sliding scale insulin (9) DVT prophylaxis Assessment & Plan: Rivaroxaban 08/02- continue rivaroxaban, if able to swallow Clinical Quality Measures DVT/VTE Risk/Contraindication: Risk Factor Score Per Nursin RFS Level Per Nursing on Admit: 3=High AUSTEN DARBY MD 08/02/20 1248: Supervisory-Addendum Brief Supervisory Addendum I personally saw and examined this patient today and did my own history and physical exam which agree with that documented by the medical student. I directed the plan of care as documented. ANGELA ORDAZ MED STUDENT Aug 02, 2020 08:23 AUSTEN DARBY MD Aug 02, 2020 12:48
[2020-08-02] MEDS: lisINopril 10 MG (PRINIVIL) TABLET PO SCH ×2 (08:51→11:30)
[2020-08-02] MEDS: RIVAROXABAN 20 MG TABLET (XARELTO) PO SCH ×2 (08:51→11:30)
[2020-08-02] MEDS: FUROSEMIDE 40 MG (LASIX) TAB PO SCH ×2 (08:51→11:29)
[2020-08-02] MEDS: FOLIC ACID 1 MG TAB PO SCH ×2 (08:52→11:29)
[2020-08-02] MEDS: PANTOPRAZOLE 40 MG (PROTONIX) TAB PO SCH ×2 (08:52→11:29)
[2020-08-02] MEDS: DIGOXIN 0.125 MG (LANOXIN) TAB PO SCH ×2 (08:52→11:29)
--- NOTE | 2020-08-02 09:38 | Physical Therapy Daily Note ---
PT Daily Note-Current Subjective Patient more alert this a.m., however, continues to be confused and slightly lethargic due to ativan. Mental Status Patient Orientation: Confused Transfers SCALE: Activities may be completed with or without assistive devices. 3-Eyhncdvdvo-msxmiet completes the activity by him/herself with no assistance from a helper. 5-Set-up or Clean-up Assistance-helper sets up or cleans up; patient completes activity. [place] assists only prior to or following the activity. 4-Supervision or Touching Assistance-helper provides verbal cues and/or touching/steadying and/or contact guard assistance as patient completes activity. Assistance may be provided throughout the activity or intermittently. 3-Partial/Moderate Assistance-helper does LESS THAN HALF the effort. [place] lifts, holds or supports trunk or limbs, but provides less than half the effort. 2-Substantial/Maximal Assistance-helper does MORE THAN HALF the effort. [place] lifts or holds trunk or limbs and provides more than half the effort. 5-Sfysmpkrf-ppxzig does ALL the effort. Patient does none of the effort to complete the activity. Or, the assistance of 2 or more helpers is required for the patient to complete the activity. If activity was not attempted, code reason: 7-Patient Refused. 9-Not Applicable-not attempted and the patient did not perform the activity before the current illness, exacerbation or injury. 10-Not Attempted due to Environmental Limitations-(lack of equipment, weather restraints, etc.). 88-Not Attempted due to Medical Conditions or Safety Concerns. Sit to Lying (QC): 2 Lying to Sitting/Side of Bed(Q: 2 Sit to Stand (QC): 2 (x 4 sets to FWW with noted retropulsion with VC's to lean forward to attain stand) Exercises Supine Ex: Heel Slides, Straight leg raise Supine Reps: 12 (AAROM) Seated Therapy Exercises: Long arc quads Seated Reps: 15 (AAROM) Assessment After treatment, PT attempted to assist patient with breakfast. Patient appeared to aspirate on biscuit and sausage then sipping coffee. PT notified RN. Patient tolerated treatment and is in bed with alarm activated and telesitter. 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 Time Frame: Aug 06, 2020 Sit to Lying (QC): 6 Lying-Sitting on Side/Bed(QC): 6 Sit to Stand (QC): 6 Chair/Dbd-qb-Qyxdk Xfer(QC): 6 Walk 50ft with 2 Turns (QC): 6 PT Plan Treatment/Plan Treatment Plan: Continue Plan of Care Treatment Plan: Bed Mobility, Education, Functional Activity Mushtaq, Functional Strength, Gait, Safety, Therapeutic Exercise, Transfers Treatment Duration: Aug 06, 2020 Frequency: 6 times per week Patient and/or Family Agrees t: Yes Time/GCodes Time In: 810 Time Out: 833 Total Billed Treatment Time: 23 Total Billed Treatment 1 visit EX x 2 23 min FIORELLA CHAVEZ PT Aug 02, 2020 09:38
--- NOTE | 2020-08-02 10:27 | NUR ---
CM/SS follow up. CM/SS visited with the patient. He was resting but woke up easily when this sw stated his name. The patient reports that he is doing well. He kept his eyes closed and only answered with one to two word answers. APS: CM/SS received an Email from Gisell Valenzuela. She is planning to come see the patient at the hospital. VCV: CM/SS received a call from [facility] stating they will accept the patient for admission. CM/SS informed the physician on acceptance. DPOA: CM/SS contacted Anuja to inform her of acceptance. She verbalized understanding. CM/SS gave a update on patient and that the APS worker will attempt to visit with him today. She voiced concerns with the patient not being alert enough to eat and that the patient's brother hasn't been able to talk with him or face time due to the nurse telling him no last evening. CM/SS will take Ipad to patient's room and get in contact with the patient's brother Trevor ([phone]). CM/SS will continue to follow. Addendum: 08/02/20 at 1424 by FABIAN PHILLIPS CM/SS contacted Trevor to set up face time. He was currently available; therefore, this sw took the Ipad into the room. The patient was able to have a small conversation with his brother Luis. Luis stated his thanks and is hopeful to be able to do this again tomorrow.
[2020-08-02 12:00] VITALS: BP 125/85
[2020-08-02 15:30] VITALS: BP 128/88
[2020-08-02] MEDS: MIRTAZAPINE 15 MG (REMERON) TAB PO SCH (19:46)
[2020-08-02 19:47] VITALS: BP 130/84
[2020-08-03 00:50] VITALS: BP 101/74
[2020-08-03] MEDS: LORazepam INJ 2 MG/ML (ATIVAN) VIAL IV PRN ×2 (03:07→10:24)
[2020-08-03 04:47] VITALS: BP 119/86
[2020-08-03] MEDS: inSUlin ASPART (NovoLOG) 1 UNIT/0.01 ML (CHARGE PER UNIT) SC SCH ×2 (06:00→12:00)
[2020-08-03 06:41] LABS: BASOPHILS % (AUTO) 1 % (0-10); EOSINOPHILS # (AUTO) 0.2 10^3/uL (0.0-0.3); EOSINOPHILS % (AUTO) 3 % (0-10); HEMATOCRIT 23 % (40-54); HEMOGLOBIN 7.3 g/dL (13.3-17.7); LYMPHOCYTES # (AUTO) 1.6 10^3/uL (1.0-4.0); LYMPHOCYTES % (AUTO) 27 % (12-44); MEAN CORPUSCULAR HEMOGLOBIN 32 pg (25-34); MEAN CORPUSCULAR HGB CONC 32 g/dL (32-36); MEAN CORPUSCULAR VOLUME 100 fL (80-99); MEAN PLATELET VOLUME 10.1 fL (9.0-12.2); MONOCYTES # (AUTO) 0.9 10^3/uL (0.0-1.0); MONOCYTES % (AUTO) 15 % (0-12); NEUTROPHILS # (AUTO) 3.4 10^3/uL (1.8-7.8); NEUTROPHILS % (AUTO) 54 % (42-75); PLATELET COUNT 203 10^3/uL (130-400); WHITE BLOOD COUNT 6.2 10^3/uL (4.3-11.0)
[2020-08-03 06:56] LABS: CHLORIDE 101 MMOL/L (98-107); POTASSIUM 4.4 MMOL/L (3.6-5.0); SODIUM 133 MMOL/L (135-145)
[2020-08-03 06:57] LABS: CALCIUM 8.1 MG/DL (8.5-10.1)
[2020-08-03 06:58] LABS: GLUCOSE 160 MG/DL (70-105)
[2020-08-03 06:59] LABS: CARBON DIOXIDE 23 MMOL/L (21-32)
[2020-08-03 07:02] LABS: CREATININE SERUM 0.68 MG/DL (0.60-1.30); GFR ESTIMATED > 60
[2020-08-03 07:03] LABS: BUN/CREATININE RATIO 18
[2020-08-03] MEDS: MULTIVIT W/MINERALS TAB (THERAGRAN M) PO SCH (07:42)
[2020-08-03 08:00] VITALS: BP 119/95
[2020-08-03] MEDS: CATHETER FLUSH 10 ML SYR IV SCH (08:07)
[2020-08-03] MEDS: lisINopril 10 MG (PRINIVIL) TABLET PO SCH (09:14)
[2020-08-03] MEDS: DIGOXIN 0.125 MG (LANOXIN) TAB PO SCH (09:14)
[2020-08-03] MEDS: PANTOPRAZOLE 40 MG (PROTONIX) TAB PO SCH (09:14)
[2020-08-03] MEDS: FUROSEMIDE 40 MG (LASIX) TAB PO SCH (09:14)
[2020-08-03] MEDS: RIVAROXABAN 20 MG TABLET (XARELTO) PO SCH (09:14)
[2020-08-03] MEDS: FOLIC ACID 1 MG TAB PO SCH (09:14)
--- NOTE | 2020-08-03 10:44 | Progress Note ---
ANGELA ORDAZ MED STUDENT 08/03/20 1044: Subjective Subjective/Events-last exam Sigifredo is more awake and alert today than he was yesterday. Pt was able to answer questions in full sentences. He is still having some confusion, stating that today is a , in [birth year] of the year 1924. Pt also believes that he is in [place], [place]. Pt stated that he is "not feeling very peachy today," but was unable to pinpoint what was making him feel this way. He was adamant about contacting his brother, he stated that there has been an accident and needed to make sure that his brother was okay. He was unable to remember the phone number. Review of Systems General: No Chills, No Fatigue, No Malaise HEENT: No Head Aches, No Visual Changes Pulmonary: No Dyspnea, No Cough Cardiovascular: No: Chest Pain, Palpitations Gastrointestinal: No: Nausea, Vomiting, Abdominal Pain, Diarrhea, Constipation, Melena Neurological: Confusion Focused Exam Respiratory: Chest Non Tender, Lungs Clear, Normal Breath Sounds, No Accessory Muscle Use, No Respiratory Distress Cardiovascular: Regular Rate, Rhythm, No Edema, No Murmur, Normal Peripheral Pulses Peripheral Pulses: 2+ Carotid (R), 2+ Carotid (L); 1+ Dorsalis Pedis (R), 1+ Left Dors-Pedis (L); 2+ Radial Pulses (R), 2+ Radial Pulses (L) Skin: normal color, warm/dry; No diaphoresis Objective Exam Last Set of Vital Signs Vital Signs Date Time Temp Pulse Resp B/P (MAP) Pulse Ox O2 Delivery O2 Flow Rate FiO2 08/03/20 08:00 36.0 123 22 119/95 (103) 96 Room Air 07/30/20 08:00 2.00 Capillary Refill : Less Than 3 Seconds I&O Intake and Output 08/03/20 00:00 Intake Total 550 ml Balance 550 ml Intake Oral 550 ml # Voids 5 General: Alert, Other (oriented to self ) HEENT: PERRLA, EOMI Neck: +2 Carotid Pulse No Bruit, No LAD Lungs: Clear to Auscultation, Normal Air Movement Heart: Regular Rate, No Murmurs Abdomen: Normal Bowel Sounds, Soft, No Tenderness Extremities: No Cyanosis, No Edema, Normal Pulses, No Tenderness/Swelling Skin: Other (Wound on R buttock) Psych/Mental Status: Other (Confusion ) Results/Procedures Lab Laboratory Tests 08/02/20 10:55: Glucometer 120H 08/02/20 15:22: Glucometer 101 08/02/20 20:36: Glucometer 100 08/03/20 05:54: White Blood Count 6.2, Red Blood Count 2.28L, Hemoglobin 7.3L, Hematocrit 23L, Mean Corpuscular Volume 100H, Mean Corpuscular Hemoglobin 32, Mean Corpuscular Hemoglobin Concent 32, Red Cell Distribution Width 15.9H, Platelet Count 203, Mean Platelet Volume 10.1, Immature Granulocyte % (Auto) 0, Neutrophils (%) (Auto) 54, Lymphocytes (%) (Auto) 27, Monocytes (%) (Auto) 15H, Eosinophils (%) (Auto) 3, Basophils (%) (Auto) 1, Neutrophils # (Auto) 3.4, Lymphocytes # (Auto) 1.6, Monocytes # (Auto) 0.9, Eosinophils # (Auto) 0.2, Basophils # (Auto) 0.0, Immature Granulocyte # (Auto) 0.0, Sodium Level 133L, Potassium Level 4.4, Chloride Level 101, Carbon Dioxide Level 23, Anion Gap 9, Blood Urea Nitrogen 12, Creatinine 0.68, Estimat Glomerular Filtration Rate > 60, BUN/Creatinine Ratio 18, Glucose Level 160H, Calcium Level 8.1L 08/03/20 07:50: Stool Occult Blood Immunoassay NEGATIVE Assessment/Plan Assessment/Plan (1) Alcohol abuse Status: Chronic Assessment & Plan: Alcohol withdrawal protocol, required 6 mg ativan last 24 hours 08/02- continue alcohol withdrawal protocol, required 2 mg ativan in the last 24 hours. 08/03- continue alcohol withdrawal protocol, required 2 mg ativan in the last 24 hours. Currently estimated 5 days out from last alcoholic beverage. (2) Confusion Status: Acute Assessment & Plan: Possibly related to alcohol withdrawal, CT head without acute findings. 08/02- still possibly related to alcohol withdrawal, regulating sleeping patterns and activities of daily living. 08/03- Continue to regulate sleeping patterns and activities of daily living. Possible that current level of confusion is baseline. (3) Atrial fibrillation Status: Chronic Assessment & Plan: Possibly not taking home medications, resumed home rivaroxaban, diltiazem and digoxin 08/02- continue home dosage of rivaroxaban, diltiazem and digoxin 08/03- continue home dosage of rivaroxaban, diltiazem and digoxin Qualifiers: Qualified Codes: I48.91 - Unspecified atrial fibrillation (4) Anemia Status: Chronic Assessment & Plan: Present for a year or more, macrocytic, suspect alcohol related, will check B12, folate, iron studies and peripheral smear. On rivaroxaban, will also check stool occult blood. 08/02- checking fecal occult blood, vit B12 was high at 1667, folate was normal at 13.4. iron low at 13, TIBC low at 212, Ferritin normal at 67.4. Will continue to monitor. 08/03- FOBT was negative. Continue Folic acid supplementation and start Iron supplementation. Qualifiers: Qualified Codes: D64.9 - Anemia, unspecified (5) Debility Status: Acute Assessment & Plan: PT/OT, may need placement for d/c. 08/02- continue PT/OT, placement preparations for [facility] 08/03- Continue work with PT/OT. Placement preparations still being organized. (6) Stage II decubitus ulcer Status: Acute Assessment & Plan: Wound care 08/02- continue wound care 08/03- Continue wound care. Bed positioning changes q2hr Qualifiers: Qualified Codes: L89.152 - Pressure ulcer of sacral region, stage 2 (7) Generalized weakness Status: Acute Assessment & Plan: PT 08/02- continue PT/OT 08/03- Continue PT/OT (8) Type 2 diabetes mellitus Status: Chronic Assessment & Plan: Home meds, diabetic diet, sliding scale insulin. 08/02- continue home medications, diabetic diet, and sliding scale insulin 08/03- Continue diabetic diet and sliding scale insulin. (9) DVT prophylaxis Assessment & Plan: Rivaroxaban 08/02- continue rivaroxaban, if able to swallow 08/03- Continue Rivaroxaban, was able to swallow pills today Clinical Quality Measures DVT/VTE Risk/Contraindication: Risk Factor Score Per Nursin RFS Level Per Nursing on Admit: 3=High AUSTEN DARBY MD 08/03/202127: Supervisory-Addendum Brief Supervisory Addendum See discharge summary for my notes today. ANGELA ORDAZ MED STUDENT Aug 03, 2020 10:44 AUSTEN DARBY MD Aug 03, 2020 21:28
[2020-08-03] MEDS ORDERED: MULT1TAB63 PO (11:44)
[2020-08-03] MEDS ORDERED: PANT40TA52 PO (11:44)
[2020-08-03] MEDS ORDERED: FENT1PAT58 TD (11:48)
[2020-08-03] MEDS ORDERED: HYDR-3817 PO (11:48)
--- NOTE | 2020-08-03 11:55 | Discharge Summary ---
Discharge Summary Hospital Course Hospital Course Date of Admission: Jul 29, 2020 at 17:54 Admission Diagnosis : Family Physician/Provider: Twan Nowak MD Date of Discharge: 08/03/20 Discharge Diagnosis: (1) Alcohol abuse Status: Chronic Assessment & Plan: Alcohol withdrawal protocol, required 6 mg ativan last 24 hours 08/02- continue alcohol withdrawal protocol, required 2 mg ativan in the last 24 hours. 08/03- Required 2 mg ativan in the last 24 hours. Currently estimated 5 days out from last alcoholic beverage, do not anticipate further need for ativan (2) Confusion Status: Acute Assessment & Plan: Possibly related to alcohol withdrawal, CT head without acute findings. 08/02- still possibly related to alcohol withdrawal, regulating sleeping patterns and activities of daily living. 08/03- Continue to regulate sleeping patterns and activities of daily living. Possible that current level of confusion is baseline. Is able to speak in full sentences and talk about his home caregiver, being discharged to long-term for further treatment. (3) Atrial fibrillation Status: Chronic Assessment & Plan: Possibly not taking home medications, resumed home rivaroxaban, diltiazem and digoxin 08/02- continue home dosage of rivaroxaban, diltiazem and digoxin 08/03- continued home dosage of rivaroxaban, diltiazem and digoxin Qualifiers: Qualified Codes: I48.91 - Unspecified atrial fibrillation (4) Anemia Status: Chronic Assessment & Plan: Present for a year or more, macrocytic, suspect alcohol related, will check B12, folate, iron studies and peripheral smear. On rivaroxaban, will also check stool occult blood. 08/02- checking fecal occult blood, vit B12 was high at 1667, folate was normal at 13.4. iron low at 13, TIBC low at 212, Ferritin normal at 67.4. Will continue to monitor. 08/03- FOBT was negative. Continue Folic acid supplementation, may need work-up for chronic blood loss outpatient depending on his wishes and family discussion. Qualifiers: Qualified Codes: D64.9 - Anemia, unspecified (5) Debility Status: Acute Assessment & Plan: PT/OT, may need placement for d/c. 08/02- continue PT/OT, placement preparations for [facility] 08/03- Continue work with PT/OT, discharging to long-term facility for further strengthening. (6) Stage II decubitus ulcer Status: Acute Assessment & Plan: Wound care 08/02- continue wound care 08/03- Continue wound care. Bed positioning changes q2hr Qualifiers: Qualified Codes: L89.152 - Pressure ulcer of sacral region, stage 2 (7) Generalized weakness Status: Acute Assessment & Plan: PT 08/02- continue PT/OT 08/03- Continue PT/OT (8) Type 2 diabetes mellitus Status: Chronic Assessment & Plan: Home meds, diabetic diet, sliding scale insulin. 08/02- continue home medications, diabetic diet, and sliding scale insulin 08/03- Continue diabetic diet and sliding scale insulin. Hospital Course: See problem list Labs and Pending Lab Test: Laboratory Tests 08/02/20 15:22: Glucometer 101 08/02/20 20:36: Glucometer 100 08/03/20 05:54: White Blood Count 6.2, Red Blood Count 2.28L, Hemoglobin 7.3L, Hematocrit 23L, Mean Corpuscular Volume 100H, Mean Corpuscular Hemoglobin 32, Mean Corpuscular Hemoglobin Concent 32, Red Cell Distribution Width 15.9H, Platelet Count 203, Mean Platelet Volume 10.1, Immature Granulocyte % (Auto) 0, Neutrophils (%) (Auto) 54, Lymphocytes (%) (Auto) 27, Monocytes (%) (Auto) 15H, Eosinophils (%) (Auto) 3, Basophils (%) (Auto) 1, Neutrophils # (Auto) 3.4, Lymphocytes # (Auto) 1.6, Monocytes # (Auto) 0.9, Eosinophils # (Auto) 0.2, Basophils # (Auto) 0.0, Immature Granulocyte # (Auto) 0.0, Sodium Level 133L, Potassium Level 4.4, Chloride Level 101, Carbon Dioxide Level 23, Anion Gap 9, Blood Urea Nitrogen 12, Creatinine 0.68, Estimat Glomerular Filtration Rate > 60, BUN/Creatinine Ratio 18, Glucose Level 160H, Calcium Level 8.1L 08/03/20 07:50: Stool Occult Blood Immunoassay NEGATIVE Home Meds Active Thera-M Tablet (Multivits,Ca,Minerals/Iron/FA) 1 Each Tablet 1 Ea PO DAILY@0700 Pantoprazole Sodium 40 Mg Tablet.dr 40 Mg PO DAILY Dok (Docusate Sodium) 100 Mg Capsule 100 Mg PO BID 30 Days Reported Melatonin 5 Mg Tablet 5 Mg PO HS Duragesic Patch 50MCG (Fentanyl) 1 Each Patch.td72 50 Mcg TD Q72H [Folic Acid] 1 Mg PO DAILY Mirtazapine 15 Mg Tablet 15 Mg PO HS Hydrocodone-Acetamin 7.5-325 (Hydrocodone/Acetaminophen) 1 Each Tablet 1 Each PO Q8H PRN Furosemide 40 Mg Tablet 40 Mg PO DAILY Xarelto (Rivaroxaban) 20 Mg Tablet 20 Mg PO DAILY LAST FILLED 05-25-2020 # DAY SUPPLY Cartia Xt (Diltiazem HCl) 240 Mg Cap.er.24h 240 Mg PO DAILY LAST FILLED 05-25-2020 #30 DAY SUPPLY Lisinopril 10 Mg Tablet 10 Mg PO DAILY Digoxin 125 Mcg Tablet 125 Mcg PO DAILY Skilled NF Admit to: [facility] Certification ([facility]) I certify that SNF services are required to be given on an inpatient basis because of the above named patient's need for long-term care on a continuing basis for the conditions(s) for which he/she was receiving inpatient hospital services prior to his/her transfer to the SNF. Alf Facility Order: Nursing Services, [facility]-Evaluate & Treat, Physical Therapy-Evaluate & Treat, Speech Language-Evaluate & Treat, Wound Care-Eval/Treat Oxygen Delivery Method: Room Air Discharge Diet: ADA Diet Daily Activity as Tolerated: Yes Resuscitation Status: Full Code Austen Resendez Aug 03, 2020 11:49 Pneu Vac Indicated: Yes Discharge Physical Exam General: Alert Lungs: Clear to Auscultation, Normal Air Movement Heart: Regular Rate Abdomen: Normal Bowel Sounds, Soft Neuro: Normal Speech Psych/Mental Status: Other (oriented to self only) AUSTEN RESENDEZ MD Aug 03, 2020 11:54
--- NOTE | 2020-08-03 11:56 | NUR ---
CM/SS finalized discharge. Plan: Patient will discharge to [facility] today skilled today 08/03. [facility]: CM/SS contacted Kerri at the facility to set up chart picker time. She states they will chart picker at 1:30 today. CM/SS will fax finalized discharge orders to facility when available. DPOA: CM/SS attempted to contact Anuja on both her work number and cell without success. CM/SS contacted Chantal who was on the phone with [facility]. The phone call was merged to a 3 way call. CM/SS gave them an update and informed them of patient's discharge. No further needs.
[2020-08-03 12:00] VITALS: BP 120/90
--- NOTE | 2020-08-03 13:26 | ST Dysphagia Evaluation ---
Speech Evaluation-General Medical Diagnosis debility Onset Date: Jul 29, 2020 Therapy Diagnosis Therapy Diagnosis: Oropharyngeal Dysphagia Precautions Precautions: Aspiration Referral Referring Physician: Dr. Resendez Medical History Pertinent Medical History: Atrial Fib, Alcoholism, DM, GERD, HTN, Smoking Reviewed History: Yes Social History Current Living Status: Alone (has a caregiver) Speech PLF/Current-Dysphagia Prior Level of Function Patient lives home alone and does have a caregiver. Subjective Patient was cooperative with the Bedside Dysphagia Evaluation. Cognitive Status Patient Orientation: Person, Confused Oral Motor Skills Dentition: Natural, Tumbled, Stained Current Food Consistancy: Regular, Thin Liquids Ability to Follow Directions: Fair Oral Expression Ability: Moderate Impairment Voice Voice Phonatory-Based Quality: Weak Voice Pitch: Normal Voice Loudness: Moderately Soft/Quiet Face Facial Symmetry: Symmetrical Oral-Facial Assessment Oral-Facial Dentition: Normal Labial Seal Description: Weak Smile: Normal Lingual Protrusion: Normal Lingual ROM: Normal Pharynx Velopharyngeal Move.: Normal Volitional Dry Swallow: Yes Voluntary Cough: Yes Can Clear Throat Volitionally: Yes Dysphagia Evaluation Consistencies Presented: Thin Liquid, Mechanical Soft, Pureed Oral Phase: Reduced Oral Transit Patient's oral phase is within normal range for liquids, decreased oral transit noted with puree and mechanical soft. Patient's pharyngeal phase is within normal range for liquids, decreased swallow onset noted with puree and mechanical soft. Dietary Recommendations: Mechanical Soft Liquid Recommendations: Thin Swallowing Precautions: Alternate Liquids/Solids, Double Swallow, Decreased Bolus 1/2 Tsp, Liquids from Cup, Liquids from Spoon, No Straw, Small Bites and Sips, Sitting Upright 90 Degrees, Sitting 90 Degrees 30 Post Intake Dysphagia Evaluation Summary Patient was admitted to the hospital due to debility. He was found in his home where he had been unable to walk for over a week. The patient completed a Beds guy Dysphagia Evaluation with presentations of thin liquids via 1/2 tsp x4 without difficulty. Patient's exhibits weak labial seal for straw and was unable to get intake. Patient was given 1/2 tsp trials of puree and mechanical soft with a decreased transit A to P noted. His swallow onset was noted to be slightly delayed as well. There were no cough/choke noted with intake. Due to decreased functional swallow, patient was not given regular. Patient is recommended for Dysphagia II diet level with thin liquids. This information was presented to his nurse, Jolene as well as written on the white board in his room. Barriers to Learning Patient has dementia Speech-Plan Patient/Family Goals Patient/Family Goals: Patient is discharging this afternoon to local SNF. Treatment Plan Speech Therapy Treatment Plan: Discontinue ST Treatment Duration: Aug 03, 2020 Frequency: 1 time per week Estimated Hrs Per Day: .25 hour per day Rehab Potential: Guarded Barriers to Learning: Patient has dementia Pt/Family Agrees to Plan: Yes Safety Risks/Education Teaching Recipient: Patient Teaching Methods: Discussion Response to Teaching: Reinforcement Needed Education Topics Provided: Safety of intake, diet level Time Speech Therapy Time In: 13:00 Speech Therapy Time Out: 13:20 Total Billed Time: 20 Billed Treatment Time 1, AYLA, DEE DEE Mancini Aug 03, 2020 13:26
== END 2020-08-03 14:00 | DRG 948 ==
LOC: EDUNIT# 15:00 → ER 15:01 → 4TH 17:54
PROVIDERS: ADMIT Internal Medicine; ATTEND Family Medicine
DX: R53.1 Weakness (principal); R64 Cachexia; F10.27 Alcohol dependence with alcohol-induced persisting dementia; I48.20 Chronic atrial fibrillation, unspecified; I42.9 Cardiomyopathy, unspecified; F10.239 Alcohol dependence with withdrawal, unspecified; R41.0 Disorientation, unspecified; L89.152 Pressure ulcer of sacral region, stage 2; R60.0 Localized edema; D64.9 Anemia, unspecified; F17.290 Nicotine dependence, other tobacco product, uncomplicated; I10 Essential (primary) hypertension; E11.9 Type 2 diabetes mellitus without complications; K21.9 Gastro-esophageal reflux disease without esophagitis; F41.9 Anxiety disorder, unspecified; F32.9 Major depressive disorder, single episode, unspecified; I87.8 Other specified disorders of veins; S82.891S Other fracture of right lower leg, sequela; Z91.81 History of falling; Z79.01 Long term (current) use of anticoagulants; Z89.421 Acquired absence of other right toe(s); Z23 Encounter for immunization; Z68.21 Body mass index [BMI] 21.0-21.9, adult
CPT/HCPCS: 36415; 70450; 71045; 72170; 73080; 80048; 80053; 80162; 80320; 81000; 82274; 82550; 82607; 82728; 82746; 82962; 83540; 83735; 83880; 85025; 85027; 86141; 90662; 93005; 96372

== ENCOUNTER → 2020-08-13 | Outpatient (CLI) | payer MEDICARE ==
[~2020-08-13] MED LIST changes: +FENT1PAT58 TD; +FOLIC ACID PO; +FURO40TA4 PO; +HYDR-3817 PO; +LEVO500T80 PO; +MELA5TAB14 PO; +MIRT15TA6 PO; +MULT1TAB63 PO; +PANT40TA52 PO
== END ==
LOC: CVS 14:50
PROVIDERS: ATTEND Internal Medicine
DX: S91.301A Unspecified open wound, right foot, initial encounter (principal); X58.XXXA Exposure to other specified factors, initial encounter
CPT/HCPCS: 87070; 87077; 87186; 87205

== ENCOUNTER 2020-08-16 16:57 | Emergency (ER) | payer MEDICARE ==
[~2020-08-16] VITALS: Ht 182.8 cm; Wt 77.0 kg
[~2020-08-16 16:57] MED LIST changes: -LEVO500T80 PO
[2020-08-16 17:27] LABS: BASOPHILS # (AUTO) 0.1 10^3/uL (0.0-0.1); BASOPHILS % (AUTO) 1 % (0-10); EOSINOPHILS # (AUTO) 0.2 10^3/uL (0.0-0.3); EOSINOPHILS % (AUTO) 1 % (0-10); HEMATOCRIT 24 % (40-54); HEMOGLOBIN 7.7 g/dL (13.3-17.7); LYMPHOCYTES # (AUTO) 2.3 10^3/uL (1.0-4.0); LYMPHOCYTES % (AUTO) 18 % (12-44); MEAN CORPUSCULAR HEMOGLOBIN 29 pg (25-34); MEAN CORPUSCULAR HGB CONC 33 g/dL (32-36); MEAN CORPUSCULAR VOLUME 90 fL (80-99); MEAN PLATELET VOLUME 9.3 fL (9.0-12.2); MONOCYTES % (AUTO) 8 % (0-12); NEUTROPHILS # (AUTO) 9.2 10^3/uL (1.8-7.8); NEUTROPHILS % (AUTO) 72 % (42-75); PLATELET COUNT 480 10^3/uL (130-400); WHITE BLOOD COUNT 12.8 10^3/uL (4.3-11.0)
[2020-08-16] MEDS ORDERED: CEFEPIME INJECTION 2,000 MG in WATER (STERILE) FOR INJECTION 20 ML IV ONE (17:30)
[2020-08-16 17:39] LABS: ALBUMIN 2.4 GM/DL (3.2-4.5); CHLORIDE 99 MMOL/L (98-107); POTASSIUM 3.7 MMOL/L (3.6-5.0); SODIUM 132 MMOL/L (135-145)
[2020-08-16 17:41] LABS: CALCIUM 7.8 MG/DL (8.5-10.1)
--- NOTE | 2020-08-16 17:41 | Diagnostic Imaging Report ---
INDICATION: Infection COMPARISON: 07/29/2020. FINDINGS: There is cardiomegaly. There are bibasilar infiltrates, left greater than right. There are small bilateral pleural effusions. There is venous congestion. There is no pneumothorax. The mediastinum is unremarkable. IMPRESSION: 1. Bibasilar infiltrate suspect for pneumonia with small bilateral pleural effusions. 2. Cardiomegaly and central pulmonary venous congestion. Dictated by: Dictated on workstation # [id number]
[2020-08-16 17:42] LABS: GLUCOSE 125 MG/DL (70-105)
--- NOTE | 2020-08-16 17:42 | Diagnostic Imaging Report ---
INDICATION: Wound infection. FINDINGS: Bones are diffusely osteopenic. There appears to have been amputation of the fifth metatarsal and toe from marked degenerative changes. There is extensive vascular calcification. There is no definitive evidence of osteomyelitis, although the evaluation is limited due to the osteopenia and degenerative change. IMPRESSION: 1. Osteopenia and marked degenerative changes in the foot with previous right fifth metatarsal and toe amputation. 2. No definitive radiographic evidence of osteomyelitis, however again the exam is limited. If high clinical concern persists, further evaluation with either MRI or three-phase bone scan should be considered. Dictated by: Dictated on workstation # [id number]
[2020-08-16 17:43] LABS: CARBON DIOXIDE 25 MMOL/L (21-32)
[2020-08-16 17:44] LABS: BILIRUBIN,TOTAL 0.4 MG/DL (0.1-1.0)
[2020-08-16 17:45] LABS: ALKALINE PHOSPHATASE 312 U/L (40-136); CREATININE SERUM 0.66 MG/DL (0.60-1.30); GFR ESTIMATED > 60; INR 2.9 (0.8-1.4); PROTHROMBIN TIME PATIENT 30.5 SEC (12.2-14.7)
[2020-08-16 17:46] LABS: BUN/CREATININE RATIO 14
[2020-08-16 17:48] LABS: ALANINE AMINOTRANSFERASE 30 U/L (0-55)
[2020-08-16] MEDS ORDERED: DOXYCYCLINE 100 MG (VIBRAMYCIN) TABLET PO ONE (18:15)
--- NOTE | 2020-08-16 18:46 | ED General ---
General Chief Complaint: General Problems/Pain Stated Complaint: R FOOT INFECTION Nursing Triage Note: TO ED PER EMS PER STAFF A [facility] WHO CALLED AND STATED THAT KIRK SNOW TECHNICIAN FROM [facility] TOLD THEM TO SEND HIM TO THE ER FOR ADMIT BECAUSE HE NEEDS BLOOD,FLUIDS AND NEEDS ANTIBIOTICS. HAS WOUND ON R FOOT THAT HAS APPOINTMENT ON SATURDAY WITH WOUND CARE, CONCERN HGB WAS 7.7 AND LATIC WAS 2.51 COPY OF LAB ON CHART. Nursing Sepsis Screen: No Definite Risk Source of Information: Patient Exam Limitations: No Limitations History of Present Illness Date Seen by Provider: Aug 16, 2020 Time Seen by Provider: 16:58 Initial Comments This 74-year-old gentleman presents to the emergency room from [facility]. He had been admitted to the hospital July for for debility. He was discharged to the assisted. He has since been treated for wound infection on the right foot. This is being dressed by staff and he has a pending wound care appointment with Dr. Gomez on Saturday. Today there was reportedly concerned about lab values that were reported including hemoglobin of 7.7 and lactic acid of 2.51. EMS reports a slight elevation in temperature of 100.1. He is afebrile for us. He denies pain, cough, shortness of breath, vomiting, diarrhea, or other symptoms of acute illness. Wound culture results are also reported and were reviewed. He had MRSA present along with Pseudomonas with sensitivity pending. Allergies and Home Medications Allergies Coded Allergies: No Known Drug Allergies (Unverified , 10/25/17) Home Medications Digoxin 125 Mcg Tablet, 125 MCG PO DAILY, (Reported) Diltiazem HCl 240 Mg Cap.er.24h, 240 MG PO DAILY, (Reported) LAST FILLED 05-25-2020 #30/ DAY SUPPLY Docusate Sodium 100 Mg Capsule, 100 MG PO BID Prescribed by: REGAN GOMEZ on 10/06/19 1124 Doxycycline Hyclate 100 Mg Tablet, 100 MG PO BID Prescribed by: LIONEL MUNIZ on 08/16/20 1901 Fentanyl 1 Each Patch.td72, 50 MCG TD Q72H Prescribed by: AUSTEN DARBY on 08/03/20 1148 Furosemide 40 Mg Tablet, 40 MG PO DAILY, (Reported) Hydrocodone/Acetaminophen 1 Each Tablet, 1 EACH PO Q8H PRN for PAIN-MODERATE (5- 7) Prescribed by: AUSTEN DARBY on 08/03/20 1148 Levofloxacin 500 Mg Tablet, 500 MG PO DAILY Prescribed by: LIONEL MUNIZ on 08/16/20 190 Lisinopril 10 Mg Tablet, 10 MG PO DAILY, (Reported) Melatonin 5 Mg Tablet, 5 MG PO HS, (Reported) Mirtazapine 15 Mg Tablet, 15 MG PO HS, (Reported) Multivits,Ca,Minerals/Iron/FA 1 Each Tablet, 1 EA PO DAILY@0700 Prescribed by: AUSTEN DARBY on 08/03/20 1144 Pantoprazole Sodium 40 Mg Tablet.dr, 40 MG PO DAILY Prescribed by: AUSTEN DARBY on 08/03/20 1144 Rivaroxaban 20 Mg Tablet, 20 MG PO DAILY, (Reported) LAST FILLED 05-25-2020 # DAY SUPPLY [Folic Acid] , 1 MG PO DAILY, (Reported) Patient Home Medication List Home Medication List Reviewed: Yes Review of Systems Review of Systems Constitutional: see HPI EENTM: no symptoms reported Respiratory: no symptoms reported Cardiovascular: no symptoms reported Gastrointestinal: no symptoms reported Genitourinary: no symptoms reported Musculoskeletal: see HPI Skin: see HPI Psychiatric/Neurological: No Symptoms Reported Hematologic/Lymphatic: See HPI Immunological/Allergic: no symptoms reported Past Shjngeo-Jcptft-Mgtaea Hx Past Med/Social Hx: Reviewed Nursing Past Med/Soc Hx Patient Social History Alcohol Use: Denies Use Number of Drinks Today: Alcohol Beverage of Choice: Whiskey, Wine Recreational Drug Use: No Smoking Status: Unknown if Ever Smoked Type Used: Cigars 2nd Hand Smoke Exposure: Yes Recent Foreign Travel: No Contact w/Someone Who Travel: No Recent Infectious Disease Expo: No Recent Hopitalizations: No Immunizations Up To Date Tetanus Booster (TDap): Unknown Date of Pneumonia Vaccine: Aug 26, 2015 Date of Influenza Vaccine: May 26, 2019 Seasonal Allergies Seasonal Allergies: No Past Medical History Surgeries: Yes Amputation (Right fifth toe), Orthopedic, Tonsillectomy Respiratory: Yes Pneumonia Currently Using CPAP: No Currently Using BIPAP: No Cardiac: Yes (heart failure with lower extremity edema) Atrial Fibrillation, Cardiomyopathy, Hypertension Neurological: Yes (neuritis and neuralgia; dizziness) Genitourinary: Yes Gastrointestinal: Yes (ileus) Gastroesophageal Reflux, Liver Disease/Jaundice, Gastrointestinal Bleed, Hepatitis Musculoskeletal: Yes (generalized muscle weakness, unsteadiness on feet) Endocrine: Yes Diabetes, Non-Insulin dep HEENT: No Loss of Vision: Denies Hearing Impairment: Denies Cancer: No Psychosocial: Yes Anxiety, Depression Integumentary: No Blood Disorders: Yes (anemia) Family Medical History Diabetes mellitus G8 BROTHER FH: testicular cancer 19 FATHER Unknown cancer 19 MOTHER No Pertinent Family Hx, Cancer, Diabetes Physical Exam Vital Signs Vital Signs - First Documented 08/16/20 16:57 Temp 36.8 Pulse 71 Resp 18 B/P (MAP) 108/75 (86) Pulse Ox 98 O2 Delivery Room Air Capillary Refill : Less Than 3 Seconds Height, Weight, BMI Height: 5'11.00" Weight: 179lbs. 9.0oz. [id number]; 23.00 BMI Method:Estimated General Appearance: No Apparent Distress, WD/WN HEENT: PERRL/EOMI, Normal ENT Inspection Neck: Normal Inspection Respiratory: Lungs Clear, Normal Breath Sounds, No Accessory Muscle Use Cardiovascular: Regular Rate, Rhythm, No Edema, No Murmur, Normal Peripheral Pulses Gastrointestinal: Normal Bowel Sounds, Non Tender, Soft Extremity: Normal Inspection, Non Tender, Pedal Edema, Other (Packed wounds on the right lateral foot. Disfigurement of the feet resembling Charcot foot.) Neurologic/Psychiatric: Alert, Oriented x3, No Motor/Sensory Deficits, Normal Mood/Affect, investigative shopper II-XII Norm as Tested Skin: Normal Color, Warm/Dry, Other (See above) Focused Exam Lactate Level 08/16/20 17:20: Lactic Acid Level 1.42 Lactic Acid Level Laboratory Tests Test 08/16/20 17:20 Lactic Acid Level 1.42 MMOL/L (0.50-2.00) Progress/Results/Core Measures Suspected Sepsis Recent Fever Within 48 Hours: No Infection Criteria Present: Documented Infection New/Unexplained Altered Menta: No Sepsis Screen: No Definite Risk SIRS Temperature: Pulse: 71 Respiratory Rate: 18 Laboratory Tests 08/16/20 17:20: White Blood Count 12.8H Blood Pressure 108 /75 Mean: 86 08/16/20 17:20: Lactic Acid Level 1.42 Laboratory Tests 08/16/20 17:20: Creatinine 0.66, INR Comment 2.9H, Platelet Count 480H, Total Bilirubin 0.4 Results/Orders Lab Results Laboratory Tests Test 08/16/20 17:20 08/16/20 18:10 Range/Units White Blood Count 12.8 H 4.3-11.0 10^3/uL Red Blood Count 2.62 L 4.30-5.52 10^6/uL Hemoglobin 7.7 L 13.3-17.7 g/dL Hematocrit 24 L 40-54 % Mean Corpuscular Volume 90 80-99 fL Mean Corpuscular Hemoglobin 29 25-34 pg Mean Corpuscular Hemoglobin Concent 33 32-36 g/dL Red Cell Distribution Width 17.4 H 10.0-14.5 % Platelet Count 480 H 130-400 10^3/uL Mean Platelet Volume 9.3 9.0-12.2 fL Immature Granulocyte % (Auto) 1 % Neutrophils (%) (Auto) 72 42-75 % Lymphocytes (%) (Auto) 18 12-44 % Monocytes (%) (Auto) 8 0-12 % Eosinophils (%) (Auto) 1 0-10 % Basophils (%) (Auto) 1 0-10 % Neutrophils # (Auto) 9.2 H 1.8-7.8 10^3/uL Lymphocytes # (Auto) 2.3 1.0-4.0 10^3/uL Monocytes # (Auto) 1.0 0.0-1.0 10^3/uL Eosinophils # (Auto) 0.2 0.0-0.3 10^3/uL Basophils # (Auto) 0.1 0.0-0.1 10^3/uL Immature Granulocyte # (Auto) 0.1 0.0-0.1 10^3/uL Prothrombin Time 30.5 H 12.2-14.7 SEC INR Comment 2.9 H 0.8-1.4 Activated Partial Thromboplast Time 79 H 24-35 SEC Sodium Level 132 L 135-145 MMOL/L Potassium Level 3.7 3.6-5.0 MMOL/L Chloride Level 99 98-107 MMOL/L Carbon Dioxide Level 25 21-32 MMOL/L Anion Gap 8 5-14 MMOL/L Blood Urea Nitrogen 9 7-18 MG/DL Creatinine 0.66 0.60-1.30 MG/DL Estimat Glomerular Filtration Rate > 60 BUN/Creatinine Ratio 14 Glucose Level 125 H 70-105 MG/DL Lactic Acid Level 1.42 0.50-2.00 MMOL/L Calcium Level 7.8 L 8.5-10.1 MG/DL Corrected Calcium 9.1 8.5-10.1 MG/DL Total Bilirubin 0.4 0.1-1.0 MG/DL Aspartate Amino Transf (AST/SGOT) 44 H 5-34 U/L Alanine Aminotransferase (ALT/SGPT) 30 0-55 U/L Alkaline Phosphatase 312 H 40-136 U/L Total Protein 6.0 L 6.4-8.2 GM/DL Albumin 2.4 L 3.2-4.5 GM/DL Coronavirus 2019 (PARM[facility]ER) Negative Negative My Orders Orders - LIONEL MAC MD Cbc With Automated Diff (08/16/20 17:16) Comprehensive Metabolic Panel (08/16/20 17:16) Blood Culture (08/16/20 17:16) Sputum Culture (08/16/20 17:16) Urinalysis (08/16/20 17:16) Urine Culture (08/16/20 17:16) Protime With Inr (08/16/20 17:16) Partial Thromboplastin Time (08/16/20 17:16) Chest 1 View, Ap/Pa Only (08/16/20 17:16) Ed Iv/Invasive Line Start (08/16/20 17:16) Ed Iv/Invasive Line Start (08/16/20 17:16) Vital Signs Adult Sepsis Patie Q15M (08/16/20 17:16) O2 (08/16/20 17:16) Remove Rings In Anticipation O (08/16/20 17:16) Lactic Acid Analyzer (08/16/20 17:16) Cefepime Injection (Maxipime Injection) (08/16/20 17:30) Foot, Right, 3 View (08/16/20 17:17) Doxycycline Hyclate Tablet (Vibramycin T (08/16/20 18:15) Covid 19 Inhouse Test (08/16/20 18:14) Medications Given in ED Current Medications Medications Dose Ordered Sig/Benito Route Start Time Stop Time Status Last Admin Dose Admin Cefepime HCl 2000 mg/Sterile Water 20 ml @ 240 mls/hr ONCE ONCE IV 08/16/20 17:30 08/16/20 17:34 DC 08/16/20 18:42 240 MLS/HR Doxycycline Hyclate 100 mg ONCE ONCE PO 08/16/20 18:15 08/16/20 18:16 DC 08/16/20 18:42 100 MG Vital Signs/I&O 08/16/20 08/16/20 16:57 19:56 Temp 36.8 Pulse 71 64 Resp 18 16 B/P (MAP) 108/75 (86) 133/71 Pulse Ox 98 96 O2 Delivery Room Air Room Air Capillary Refill : Less Than 3 Seconds Blood Pressure Mean: 86 Progress Note : Progress Note Labs appear to stable from earlier today. Hemoglobin has not changed signi ficantly since he was admitted July 29. Lactic acid was normal, an improvement from his labs earlier today. X-ray was obtained of the right foot which demonstrated no osteomyelitis. Chest x-ray was read by the radiologist to have bibasilar infiltrates. Based on my knowledge of his positioning in bed, I favor an layering pleural effusion. Slight pleural effusions were seen on prior x-ray. Patient was treated with cefepime and doxycycline for his wound infections based on culture results. I discussed the situation with Dr. Cunningham. She and I agreed that patient does not need to be treated in the inpatient setting. See discharge instructions. Levaquin was prescribed for the pseudomonal infection and doxycycline was prescribed for the MRSA infection. Diagnostic Imaging Diagonstic Imaging: Xray Plain Films/CT/US/NM/MRI: chest Comments Chest x-ray viewed by me and report reviewed. See report below. Based on my interpretation, high fever and low hearing pleural effusion over infiltrate. NAME: MACHO MAIER [facility] REC#: [id number] PT STATUS: REG ER : 1945 PHYSICIAN: LIONEL MAC MD ADMIT DATE: 08/16/20/ER Signed Date of Exam:08/16/20 CHEST 1 VIEW, AP/PA ONLY INDICATION: Infection COMPARISON: 07/29/2020. FINDINGS: There is cardiomegaly. There are bibasilar infiltrates, left greater than right. There are small bilateral pleural effusions. There is venous congestion. There is no pneumothorax. The mediastinum is unremarkable. IMPRESSION: 1. Bibasilar infiltrate suspect for pneumonia with small bilateral pleural effusions. 2. Cardiomegaly and central pulmonary venous congestion. Dictated by: Dictated on workstation # [id number] Dict: 08/16/201732 Trans: 08/16/201810 [facility] [id number] Interpreted by: ROMIE CHE MD Electronically signed by: ROMIE CHE MD 08/16/201810 Diagonstic Imaging: Xray Plain Films/CT/US/NM/MRI: other (Right foot) Comments NAME: MACHO MAIER [facility] REC#: [id number] PT STATUS: REG ER : 1945 PHYSICIAN: LIONEL MAC MD ADMIT DATE: 08/16/20/ER Signed Date of Exam:08/16/20 FOOT, RIGHT, 3 VIEW INDICATION: Wound infection. FINDINGS: Bones are diffusely osteopenic. There appears to have been amputation of the fifth metatarsal and toe from marked degenerative changes. There is extensive vascular calcification. There is no definitive evidence of osteomyelitis, although the evaluation is limited due to the osteopenia and degenerative change. IMPRESSION: 1. Osteopenia and marked degenerative changes in the foot with previous right fifth metatarsal and toe amputation. 2. No definitive radiographic evidence of osteomyelitis, however again the exam is limited. If high clinical concern persists, further evaluation with either MRI or three-phase bone scan should be considered. Dictated by: Dictated on workstation # [id number] Dict: 08/16/201733 Trans: 08/16/201811 [facility] [phone] Interpreted by: ROIME CHE MD Electronically signed by: ROMIE CHE MD 08/16/201811 Departure Impression Primary Impression: Wound infection Additional Impressions: Chronic anemia Pleural effusion Disposition: 01 HOME, SELF-CARE Condition: Improved Departure-Patient Inst. Referrals: LATASHA DE JESUS MD (PCP/Family) Primary Care Physician Patient Instructions: Wound Infection Add. Discharge Instructions: Continue with wound care as previously planned. Follow-up with the primary care team as soon as possible. Complete antibiotics as prescribed. Call attending physician with further questions or concerns. All discharge instructions reviewed with patient and/or family. Voiced understanding. Scripts Levofloxacin (Levofloxacin) 500 Mg Tablet 500 MG PO DAILY, #7 TAB Prov: LIONEL MAC MD 08/16/20 Doxycycline Hyclate (Doxycycline Hyclate) 100 Mg Tablet 100 MG PO BID, #20 TAB 0 Refills Prov: LIONEL MAC MD 08/16/20 Copy Copies To 1: LATASHA DE JESUS MD, JOSHUA T MD Aug 16, 2020 18:46
--- NOTE | 2020-08-16 18:59 | NUR ---
REPORT TO [facility]НД[facility]
[2020-08-16] MEDS ORDERED: LEVO500T80 PO (19:01)
[2020-08-16] MEDS ORDERED: DOXY100T2 PO (19:01)
--- NOTE | 2020-08-16 19:43 | NUR ---
PT IS ON [address] AT [facility]
--- NOTE | 2020-08-16 19:45 | NUR ---
HECTOR AT [facility] STATES THAT SHE WILL TRY TO CALL AND ARRANGE TRANSPORT FOR PT TO RETURN TO [facility] AND WILL CALL ED WHEN SHE HAS AN ETA.
[2020-08-16 19:56] VITALS: BP 133/71
== END 2020-08-16 19:56 | disposition home or self-care (01) ==
LOC: ER 16:58 → EDUNIT# 17:07 → ER 19:56
DX: T81.49XA Infection following a procedure, other surgical site, initial encounter (principal); D64.9 Anemia, unspecified; J90 Pleural effusion, not elsewhere classified; I48.91 Unspecified atrial fibrillation; I10 Essential (primary) hypertension; K21.9 Gastro-esophageal reflux disease without esophagitis; F41.9 Anxiety disorder, unspecified; F32.9 Major depressive disorder, single episode, unspecified; Z83.3 Family history of diabetes mellitus; Z80.43 Family history of malignant neoplasm of testis; Z77.22 Contact with and (suspected) exposure to environmental tobacco smoke (acute) (chronic); Z20.828 Contact with and (suspected) exposure to other viral communicable diseases; Z79.01 Long term (current) use of anticoagulants
CPT/HCPCS: 71045; 73630; 80053; 83605; 85025; 85610; 85730; 87040; U0002; 36415; 87635

== ENCOUNTER → 2020-08-22 | Outpatient (CLI) | payer MEDICARE ==
[~2020-08-22] MED LIST changes: +LEVO500T80 PO
--- NOTE | 2020-08-22 16:29 | Diagnostic Imaging Report ---
INDICATION: Osteomyelitis, right heel ulcer. TECHNIQUE: AP, oblique, and lateral views of the right foot were obtained. COMPARISON: 08/16/2020. FINDINGS: There is diffuse osteopenia. There is amputation of the 5th digit again noted. There are vascular calcifications. There are diffuse degenerative findings throughout the tarsal bones. There are extensive degenerative changes of the calcaneocuboid joint, talocalcaneal joint, and talonavicular joint. Overall findings have not changed from 08/16/2020. IMPRESSION: Multifocal chronic changes in the right foot with amputation of the 5th digit and diffuse osteopenia. Overall findings have not changed compared with 08/16/2020. Dictated by: Dictated on workstation # [id number]
== END ==
LOC: RAD 11:21
PROVIDERS: ATTEND Surgery
DX: E11.621 Type 2 diabetes mellitus with foot ulcer (principal); E11.42 Type 2 diabetes mellitus with diabetic polyneuropathy; L97.416 Non-pressure chronic ulcer of right heel and midfoot with bone involvement without evidence of necrosis; I70.234 Atherosclerosis of native arteries of right leg with ulceration of heel and midfoot; F10.20 Alcohol dependence, uncomplicated
CPT/HCPCS: 36415; 73630; 83036; 85652; 86141

== ENCOUNTER → 2020-08-22 | Outpatient (CLI) | payer MEDICARE | LOC: WOUNDCARE 09:07 | PROVIDERS: ATTEND Surgery | DX: E11.621 Type 2 diabetes mellitus with foot ulcer (principal); E11.42 Type 2 diabetes mellitus with diabetic polyneuropathy; I70.234 Atherosclerosis of native arteries of right leg with ulceration of heel and midfoot; L97.416 Non-pressure chronic ulcer of right heel and midfoot with bone involvement without evidence of necrosis; F10.20 Alcohol dependence, uncomplicated | CPT/HCPCS: 11043; G0463 ==

== ENCOUNTER → 2020-08-29 | Outpatient (CLI) | payer MEDICARE | LOC: WOUNDCARE 10:39 | PROVIDERS: ATTEND Surgery | DX: E11.621 Type 2 diabetes mellitus with foot ulcer (principal); E11.42 Type 2 diabetes mellitus with diabetic polyneuropathy; I96 Gangrene, not elsewhere classified; L97.416 Non-pressure chronic ulcer of right heel and midfoot with bone involvement without evidence of necrosis; M14.671 Charcot's joint, right ankle and foot; I70.234 Atherosclerosis of native arteries of right leg with ulceration of heel and midfoot; F10.20 Alcohol dependence, uncomplicated | CPT/HCPCS: A6197; G0463; L4360; 99213 ==

== ENCOUNTER → 2020-09-05 | Outpatient (CLI) | payer MEDICARE ==
--- NOTE | 2020-09-05 12:13 | Diagnostic Imaging Report ---
Right lower extremity arterial Doppler. Indication: Foot ulcer, Charcot right ankle. Spectral and color-flow imaging of the arterial system in the right lower extremity was performed. There are no prior studies available for comparison. There seems to be fairly good arterial blood flow to the right lower extremity. Triphasic and biphasic waveforms were seen and there is no abrupt alteration of the velocities to suggest a hemodynamically significant stenosis. IMPRESSION: 1. There is no sonographic evidence for hemodynamically significant stenosis of the arterial system of the right lower extremity. 2. If clinical concern regarding an underlying abnormality persists and further imaging is desired, then CTA of the aorta with bilateral runoffs would be recommended. Dictated by: Dictated on workstation # [id number]
== END ==
LOC: RAD 10:00
PROVIDERS: ATTEND Surgery
DX: E11.621 Type 2 diabetes mellitus with foot ulcer (principal); E11.42 Type 2 diabetes mellitus with diabetic polyneuropathy; I70.234 Atherosclerosis of native arteries of right leg with ulceration of heel and midfoot; L97.416 Non-pressure chronic ulcer of right heel and midfoot with bone involvement without evidence of necrosis; M14.671 Charcot's joint, right ankle and foot; F10.20 Alcohol dependence, uncomplicated
CPT/HCPCS: 93926

== ENCOUNTER → 2020-09-09 | Outpatient (CLI) | payer MEDICARE | LOC: WOUNDCARE 10:54 | PROVIDERS: ATTEND Orthopaedic Surgery Hand Surgery | DX: E11.621 Type 2 diabetes mellitus with foot ulcer (principal); E11.42 Type 2 diabetes mellitus with diabetic polyneuropathy; E11.52 Type 2 diabetes mellitus with diabetic peripheral angiopathy with gangrene; E11.610 Type 2 diabetes mellitus with diabetic neuropathic arthropathy; I70.261 Atherosclerosis of native arteries of extremities with gangrene, right leg; L97.416 Non-pressure chronic ulcer of right heel and midfoot with bone involvement without evidence of necrosis; F10.20 Alcohol dependence, uncomplicated | CPT/HCPCS: 97597; G0463 ==

== ENCOUNTER → 2020-09-15 | Outpatient (CLI) | payer MEDICARE ==
[~2020-09-15] MED LIST changes: -FOLI1TAB24 PO; +FOLI1TAB33 PO
== END ==
LOC: WOUNDCARE 12:21
PROVIDERS: ATTEND Surgery
DX: E11.621 Type 2 diabetes mellitus with foot ulcer (principal); E11.42 Type 2 diabetes mellitus with diabetic polyneuropathy; M14.671 Charcot's joint, right ankle and foot; L97.416 Non-pressure chronic ulcer of right heel and midfoot with bone involvement without evidence of necrosis; I70.234 Atherosclerosis of native arteries of right leg with ulceration of heel and midfoot; F10.20 Alcohol dependence, uncomplicated
CPT/HCPCS: 11042; G0463

== ENCOUNTER → 2020-09-22 | Outpatient (CLI) | payer MEDICARE | LOC: WOUNDCARE 12:44 | PROVIDERS: ATTEND Surgery | DX: E11.621 Type 2 diabetes mellitus with foot ulcer (principal); E11.42 Type 2 diabetes mellitus with diabetic polyneuropathy; I96 Gangrene, not elsewhere classified; L97.412 Non-pressure chronic ulcer of right heel and midfoot with fat layer exposed; M14.671 Charcot's joint, right ankle and foot; I70.234 Atherosclerosis of native arteries of right leg with ulceration of heel and midfoot; F10.20 Alcohol dependence, uncomplicated | CPT/HCPCS: 11042; G0463 ==

== ENCOUNTER → 2020-09-29 | Outpatient (CLI) | payer MEDICARE | LOC: WOUNDCARE 12:43 | PROVIDERS: ATTEND Surgery | DX: E11.52 Type 2 diabetes mellitus with diabetic peripheral angiopathy with gangrene (principal); E11.621 Type 2 diabetes mellitus with foot ulcer; E11.610 Type 2 diabetes mellitus with diabetic neuropathic arthropathy; I70.261 Atherosclerosis of native arteries of extremities with gangrene, right leg; E11.42 Type 2 diabetes mellitus with diabetic polyneuropathy; L97.412 Non-pressure chronic ulcer of right heel and midfoot with fat layer exposed; F10.20 Alcohol dependence, uncomplicated | CPT/HCPCS: 11042; G0463 ==

== ENCOUNTER → 2020-10-20 | Outpatient (CLI) | payer MEDICARE ==
[~2020-10-20] MED LIST changes: -LISI10TA2 PO; +LISI10TA25 PO
== END ==
LOC: WOUNDCARE 15:03
PROVIDERS: ATTEND Surgery
DX: I96 Gangrene, not elsewhere classified (principal); L97.412 Non-pressure chronic ulcer of right heel and midfoot with fat layer exposed; E11.621 Type 2 diabetes mellitus with foot ulcer; E11.42 Type 2 diabetes mellitus with diabetic polyneuropathy; M14.671 Charcot's joint, right ankle and foot; I70.234 Atherosclerosis of native arteries of right leg with ulceration of heel and midfoot; F10.20 Alcohol dependence, uncomplicated
CPT/HCPCS: 11042; G0463

== ENCOUNTER → 2020-10-27 | Outpatient (CLI) | payer MEDICARE ==
[~2020-10-27] MED LIST changes: +ACET325T38 PO; +ASCO-262 PO; +DOCU100T2 PO; +MAGN400O7 PO; +MENT118G TP; +MIRT30TA6 PO; +MULT-1009 PO; +POLY17PO6 PO; +PREG75CA PO; +ZINC56.715 TP
== END ==
LOC: WOUNDCARE 12:41
PROVIDERS: ATTEND Orthopaedic Surgery Hand Surgery
DX: E11.621 Type 2 diabetes mellitus with foot ulcer (principal); E11.42 Type 2 diabetes mellitus with diabetic polyneuropathy; L97.412 Non-pressure chronic ulcer of right heel and midfoot with fat layer exposed; M14.671 Charcot's joint, right ankle and foot; I70.234 Atherosclerosis of native arteries of right leg with ulceration of heel and midfoot; E11.52 Type 2 diabetes mellitus with diabetic peripheral angiopathy with gangrene; F10.20 Alcohol dependence, uncomplicated
CPT/HCPCS: 11042; G0463

== ENCOUNTER 2020-11-02 07:35 | Day surgery (SDC) | payer MEDICARE ==
[2020-11-02] VITALS (13 sets, daily range): BP systolic 103–140; BP diastolic 62–108
[~2020-11-02] VITALS: Ht 188 cm; Wt 73.0 kg
[~2020-11-02 07:35] MED LIST changes: -ACET325T38 PO; -ASCO-262 PO; -DOCU100T2 PO; -MAGN400O7 PO; -MENT118G TP; -MIRT30TA6 PO; -MULT-1009 PO; -POLY17PO6 PO; -PREG75CA PO; -ZINC56.715 TP
[2020-11-02] MEDS ORDERED: HEParin (CATH LAB) 2,000 ML IV ONE (07:38)
[2020-11-02] MEDS ORDERED: LIDOCAINE 1% INJ 20 ML 20 ML VIAL ONE (07:38)
[2020-11-02] MEDS ORDERED: NS IV 1000 ML 1,000 ML ONE (07:38)
[2020-11-02] MEDS ORDERED: NS IV 1000 ML 1,000 ML IV SCH (08:00)
[2020-11-02 08:18] LABS: HEMOGLOBIN 7.7 g/dL (13.3-17.7); MEAN PLATELET VOLUME 10.1 fL (9.0-12.2); WHITE BLOOD COUNT 8.2 10^3/uL (4.3-11.0)
[2020-11-02 08:38] LABS: ALBUMIN 3.7 GM/DL (3.2-4.5); BILIRUBIN,TOTAL 0.5 MG/DL (0.1-1.0); CALCIUM 8.9 MG/DL (8.5-10.1); CREATININE SERUM 1.26 MG/DL (0.60-1.30); POTASSIUM 4.2 MMOL/L (3.6-5.0); TOTAL PROTEIN 7.5 GM/DL (6.4-8.2)
--- NOTE | 2020-11-02 08:39 | Diagnostic Imaging Report ---
INDICATION: Preop for peripheral angiography. Time of exam: 8:06 AM Comparison is made with prior chest 08/16/2020. Heart size is normal. There is a moderate sized left pleural effusion which has increased in size since July. A small right pleural effusion. No infiltrates are detected. The pulmonary vascularity is normal. No pneumothorax. IMPRESSION: Bilateral pleural effusions, largest on the left. Left-sided effusion has increased since examination from July. Dictated by: Dictated on workstation # [id number]
[2020-11-02] MEDS ORDERED: NS IV 500 ML 500 ML IV SCH (08:45)
[2020-11-02 08:47] LABS: INR 1.2 (0.8-1.4); PROTHROMBIN TIME PATIENT 16.1 SEC (12.2-14.7)
[2020-11-02] MEDS ORDERED: NS IV 500 ML 500 ML ONE (08:51)
[2020-11-02] MEDS ORDERED: PREG75CA PO (08:58)
[2020-11-02] MEDS ORDERED: HYDR-3817 PO (08:58)
[2020-11-02] MEDS ORDERED: MAGN400O7 PO (08:58)
[2020-11-02] MEDS ORDERED: MULT-1009 PO (08:58)
[2020-11-02] MEDS ORDERED: ASCO-262 PO (08:58)
[2020-11-02] MEDS ORDERED: ACET325T38 PO (08:58)
[2020-11-02] MEDS ORDERED: DIGO125T3 PO (08:58)
[2020-11-02] MEDS ORDERED: PANT40TA52 PO (08:58)
[2020-11-02] MEDS ORDERED: MENT118G TP (08:58)
[2020-11-02] MEDS ORDERED: POLY17PO6 PO (08:58)
[2020-11-02] MEDS ORDERED: MIRT30TA6 PO (08:58)
[2020-11-02] MEDS ORDERED: DOCU100T2 PO (08:58)
[2020-11-02] MEDS ORDERED: ZINC56.715 TP (08:58)
[2020-11-02] MEDS ORDERED: FOLI1TAB33 PO (08:58)
[2020-11-02] MEDS ORDERED: MIDAZOLAM 5 MG/5 ML (VERSED) VIAL ONE (09:19)
[2020-11-02] MEDS ORDERED: fentaNYL INJ 100 MCG/2 ML AMP ONE (09:19)
[2020-11-02] MEDS ORDERED: GOLYTELY POWDER 4000 ML BTL PO ONE (09:30)
--- NOTE | 2020-11-02 09:44 | Cardiac Procedure Note-CS/ASA ---
Pre-Procedure Note Pre-Op Procedure Note H&P Reviewed The H&P was reviewed, patient examined and no changes noted. Date H&P Reviewed: Nov 02, 2020 Time H&P Reviewed: 09:44 Conscious Sedation Pre-Proced Time 09:44 ASA Score 3 For ASA 3 and 4: Consider anesthesia and medical clearance. Also, for patients with a history of failed moderate sedation consider anesthesia. Airway Lungs Heart ASA score ASA 1: a normal healthy patient ASA 2: a patient with a mild systemic disease (mid diabetes, controlled hypertension, obesity x ASA 3: a patient with a severe systemic disease that limits activity (angina, COPD, prior Myocardial infarction) ASA 4: a patient with an incapacitating disease that is a constant threat to life (CHF, renal failure) ASA 5: a moribund patient not expected to survive 24 hrs. (ruptured aneurysm) ASA 6: a declared brain- patient whose organs are being harvested. For emergent operations, add the letter E after the classification Mallampati Classification Grade 3 Sedation Plan Analgesia, Amnesia, Plan communicated to team members, Discussed options with patient/fam, Discussed risks with patient/fam The patient is an appropriate candidate to undergo the planned procedure, sedation, and anesthesia. The patient immediately re-assessed prior to indication. CARMENCITA SANTOS MD Nov 02, 2020 09:44
--- NOTE | 2020-11-02 09:44 | Consultation - Surgery ---
MARIELA DOBSON MED STUDENT 11/02/20 0944: History of Present Illness History of Present Illness Patient Consulted On(ronnie/time) 11/02/20 09:38 Date Seen by Provider: Nov 02, 2020 Time Seen by Provider: 09:30 History of Present Illness Patient presented to cardiac cath department today and had labs evaluated. Hemoglobin was found to be 7.7. Patient is on eliquis anticoagulation for history of atrial fibrillation. Surgery consulted to evaluate the anemia. Patient denies chest pain or SOB. Denies blood in his stools. Denies abdominal pain. Allergies and Home Medications Allergies Coded Allergies: No Known Drug Allergies (Unverified , 10/25/17) Home Medications Acetaminophen 325 Mg Tablet, 650 MG PO Q6H PRN for PAIN-MILD (1-4) OR TEMPATURE, (Reported) Ascorbate Calcium 500 Mg Tablet, 500 MG PO BID, (Reported) Digoxin 125 Mcg Tablet, 125 MCG PO DAILY, (Reported) HOLD MED AND NOTIFY MD FOR PULSE EQUAL TO OR LESS THAN 60BPM Diltiazem HCl 240 Mg Cap.er.24h, 240 MG PO DAILY, (Reported) HOLD MED AND NOTIFY MD FOR HR EQUAL TO OR LESS THEN 60BPM Docusate Sodium 100 Mg Tablet, 100 MG PO BID, (Reported) Folic Acid 1 Mg Tablet, 1 MG PO DAILY, (Reported) Furosemide 40 Mg Tablet, 40 MG PO DAILY, (Reported) Hydrocodone/Acetaminophen 1 Each Tablet, 1 EACH PO Q8H PRN for PAIN-MODERATE (5- 7), (Reported) Lisinopril 10 Mg Tablet, 10 MG PO DAILY, (Reported) HOLD MED AND NOTIFY MD FOR SBP LESS THAN 100 OR DBP LESS THAN 60 Magnesium Hydroxide 400 Mg/5 Ml Oral.susp, 30 ML PO EVERY 72 HOURS PRN for CONSTIPATION-7TH LINE, (Reported) Melatonin 5 Mg Tablet, 5 MG PO HS, (Reported) Menthol 118 Ml Gel..ml., 1 APPLIC TP TID, (Reported) Mirtazapine 30 Mg Tablet, 30 MG PO HS, (Reported) Multivits,Ca,Minerals/Iron/FA 1 Each Tablet, 1 EACH PO DAILY, (Reported) Pantoprazole Sodium 40 Mg Tablet.dr, 40 MG PO DAILY, (Reported) Polyethylene Glycol 3350 17 Gm Powd.pack, 17 GM PO DAILY PRN for CONSTIPATION- 2ND LINE, (Reported) Pregabalin 75 Mg Capsule, 75 MG PO BID, (Reported) Rivaroxaban 20 Mg Tablet, 20 MG PO DAILY, (Reported) Zinc Oxide 56.7 Gm Oint...g., 56.7 GM TP UD, (Reported) APPLY EVERY SHIFT FOR SKIN BREAKDOWN/GLUTEAL CREASE Past [id number]-[id number]-Jmkdrt Hx Patient Social History Number of Drinks Today: GG Smoking Status: Former Smoker Type Used: Cigars 2nd Hand Smoke Exposure: No Recent Hopitalizations: No Immunizations Up To Date Tetanus Booster (TDap): Unknown Date of Pneumonia Vaccine: Aug 26, 2015 Date of Influenza Vaccine: May 26, 2020 Seasonal Allergies Seasonal Allergies: No Surgeries History of Surgeries: Yes Surgeries: Amputation (right foot 5th toe amputation), Orthopedic, Tonsillectomy Respiratory History of Respiratory Disorde: Yes Respiratory Disorders: Pneumonia Cardiovascular History of Cardiac Disorders: Yes (heart failure with lower extremity edema) Cardiac Disorders: Atrial Fibrillation, Cardiomyopathy, Hypertension Neurological History of Neurological Disord: Yes (neuritis and neuralgia; dizziness) Genitourinary History of Genitourinary Disor: No Gastrointestinal History of Gastrointestinal Di: Yes (ileus) Gastrointestinal Disorders: Gastroesophageal Reflux, Liver Disease/Jaundice, Gastrointestinal Bleed, Hepatitis Musculoskeletal History of Musculoskeletal Dis: Yes (generalized muscle weakness, unsteadiness on feet) Endocrine History of Endocrine Disorders: Yes Endocrine Disorders: Diabetes, Non-Insulin dep HEENT History of HEENT Disorders: No Loss of Vision: Denies Hearing Impairment: Denies Cancer History of Cancer: No Psychosocial History of Psychiatric Problem: Yes Behavioral Health Disorders: Anxiety, Depression Integumentary History of Skin or Integumenta: No Blood Transfusions History of Blood Disorders: Yes (anemia) Family Medical History Significant Family History: No Pertinent Family Hx, Cancer, Diabetes Family Medial History: Diabetes mellitus G8 BROTHER FH: testicular cancer 19 FATHER Unknown cancer 19 MOTHER Review of Systems-General Constitutional: no symptoms reported EENTM: no symptoms reported Respiratory: no symptoms reported; No cough, No short of breath Cardiovascular: no symptoms reported; No chest pain, No palpitations Gastrointestinal: no symptoms reported; No abdominal pain, No melena Genitourinary: no symptoms reported; No dysuria, No frequency Musculoskeletal: no symptoms reported; No back pain, No muscle pain Skin: change in color (multiple presumed senile purpura visible on bilat arms ) Psychiatric/Neurological: No Symptoms Reported; Denies Anxiety, Denies Depressed Physical Exam-General Problems Physical Exam Vital Signs Vital Signs - First Documented 11/02/20 08:02 Temp 36.3 Pulse 83 Resp 18 B/P (MAP) 111/67 (82) Pulse Ox 97 O2 Delivery Room Air Capillary Refill : General Appearance: no apparent distress, thin Eyes: Bilateral Eye EOMI HEENT: PERRL/EOMI; No scleral icterus (R), No scleral icterus (L) Neck: full range of motion, normal inspection Respiratory: no respiratory distress, no accessory muscle use Cardiovascular: normal peripheral pulses, no edema, other (irregular radial pulse by palp) Peripheral Pulses: 2+ Radial Pulses (R), 2+ Radial Pulses (L) Gastrointestinal: non tender, soft Rectal: deferred Back: No muscle spasm, No vertebral tenderness Extremities: normal range of motion, non-tender Neurologic/Psychiatric: alert, normal mood/affect Skin: warm/dry, ecchymosis Lymphatic: no adenopathy Data Review Labs Laboratory Tests 11/02/20 08:05: White Blood Count 8.2, Red Blood Count 3.20L, Hemoglobin 7.7L, Hematocrit 26L, Mean Corpuscular Volume 81, Mean Corpuscular Hemoglobin 24L, Mean Corpuscular Hemoglobin Concent 30L, Red Cell Distribution Width 16.7H, Platelet Count 247, Mean Platelet Volume 10.1, Prothrombin Time 16.1H, INR Comment 1.2, Activated Partial Thromboplast Time 44H, Sodium Level 138, Potassium Level 4.2, Chloride Level 106, Carbon Dioxide Level 22, Anion Gap 10, Blood Urea Nitrogen 26H, Creatinine 1.26, Estimat Glomerular Filtration Rate 56, BUN/Creatinine Ratio 21, Glucose Level 82, Calcium Level 8.9, Corrected Calcium 9.1, Total Bilirubin 0.5, Aspartate Amino Transf (AST/SGOT) 17, Alanine Aminotransferase (ALT/SGPT) 14, Al kaline Phosphatase 142H, Total Protein 7.5, Albumin 3.7, Triglycerides Level 47, Cholesterol Level 92, LDL Cholesterol Direct 41, VLDL Cholesterol 9, HDL Cholesterol 40 Assessment/Plan Assessment/Plan Assessment/Plan Possible GI Bleed halfway anticoagulation Anemia Afib history HTN Diabetes mellitus type 2, non insulin dependent Hepatitis GERD Hx of GIB Clear liquid diet today NPO after midnight Continue to hold rivaroxaban Golytely prep to be performed today Plan to perform EGD and colonoscopy tomorrow Repeat H and H in AM BRATOLO TYLER DO 11/03/20 0859: History of Present Illness History of Present Illness History of Present Illness Consult requested by Dr. Escalona for anemia. Patient is a 74 year old male with afib and on Eliquis, currently on hold. He was found to have hgb of 7.7. He has had previous egd colonoscopies couple years ago when had anemia but no source found. Patient not having any abdominal pain. No nausea or vomiting. No signs of bleeding. Denies fever sweats chills shortness of breath or chest pain at this time. Allergies and Home Medications Allergies Coded Allergies: No Known Drug Allergies (Unverified , 10/25/17) Home Medications Acetaminophen 325 Mg Tablet, 650 MG PO Q6H PRN for PAIN-MILD (1-4) OR TEMPATURE, (Reported) Ascorbate Calcium 500 Mg Tablet, 500 MG PO BID, (Reported) Digoxin 125 Mcg Tablet, 125 MCG PO DAILY, (Reported) HOLD MED AND NOTIFY MD FOR PULSE EQUAL TO OR LESS THAN 60BPM Diltiazem HCl 240 Mg Cap.er.24h, 240 MG PO DAILY, (Reported) HOLD MED AND NOTIFY MD FOR HR EQUAL TO OR LESS THEN 60BPM Docusate Sodium 100 Mg Tablet, 100 MG PO BID, (Reported) Folic Acid 1 Mg Tablet, 1 MG PO DAILY, (Reported) Furosemide 40 Mg Tablet, 40 MG PO DAILY, (Reported) Hydrocodone/Acetaminophen 1 Each Tablet, 1 EACH PO Q8H PRN for PAIN-MODERATE (5- 7), (Reported) Lisinopril 10 Mg Tablet, 10 MG PO DAILY, (Reported) HOLD MED AND NOTIFY MD FOR SBP LESS THAN 100 OR DBP LESS THAN 60 Magnesium Hydroxide 400 Mg/5 Ml Oral.susp, 30 ML PO EVERY 72 HOURS PRN for CONSTIPATION-7TH LINE, (Reported) Melatonin 5 Mg Tablet, 5 MG PO HS, (Reported) Menthol 118 Ml Gel..ml., 1 APPLIC TP TID, (Reported) Mirtazapine 30 Mg Tablet, 30 MG PO HS, (Reported) Multivits,Ca,Minerals/Iron/FA 1 Each Tablet, 1 EACH PO DAILY, (Reported) Pantoprazole Sodium 40 Mg Tablet.dr, 40 MG PO DAILY, (Reported) Polyethylene Glycol 3350 17 Gm Powd.pack, 17 GM PO DAILY PRN for CONSTIPATION- 2ND LINE, (Reported) Pregabalin 75 Mg Capsule, 75 MG PO BID, (Reported) Rivaroxaban 20 Mg Tablet, 20 MG PO DAILY, (Reported) Zinc Oxide 56.7 Gm Oint...g., 56.7 GM TP UD, (Reported) APPLY EVERY SHIFT FOR SKIN BREAKDOWN/GLUTEAL CREASE Patient Home Medication List Home Medication List Reviewed: Yes Past Vjtlgks-Xkmirt-Qqxelp Hx Reviewed Nursing Assessment Reviewed/Agree w Nursing PMH: Yes Family Medical History Significant Family History: No Pertinent Family Hx Family Medial History: Diabetes mellitus G8 BROTHER FH: testicular cancer 19 FATHER Unknown cancer 19 MOTHER Review of Systems-General Constitutional: No chills, No diaphoresis EENTM: No blurred vision, No double vision Respiratory: No cough, No short of breath Cardiovascular: No chest pain, No palpitations Gastrointestinal: No abdominal pain, No melena, No nausea, No vomiting Genitourinary: No dysuria, No frequency Musculoskeletal: No back pain, No muscle pain Skin: change in color (multiple presumed senile purpura visible on bilat arms ) Psychiatric/Neurological: Denies Anxiety, Denies Depressed All Other Systems Reviewed Negative Unless Noted: Yes (Negative excepted noted.) Physical Exam-General Problems Physical Exam General Appearance: WD/WN, no apparent distress HEENT: PERRL/EOMI, normal ENT inspection Neck: full range of motion, supple, normal inspection Respiratory: chest non-tender, no respiratory distress, no accessory muscle use Cardiovascular: no edema, other (irregular radial pulse by palp) Gastrointestinal: non tender, soft, no organomegaly Rectal: deferred Back: normal inspection, no CVA tenderness Extremities: normal range of motion, non-tender Neurologic/Psychiatric: no motor/sensory deficits, alert, normal mood/affect, oriented x 3 Skin: warm/dry, ecchymosis Lymphatic: no adenopathy Assessment/Plan Assessment/Plan Assessment/Plan Anemia -Possible GI Bleed halfway anticoagulation Afib history HTN Diabetes mellitus type 2, non insulin dependent Hepatitis GERD Hx of GIB Clear liquid diet today NPO after midnight Continue to hold rivaroxaban Golytely prep to be performed today Plan to perform EGD and colonoscopy tomorrow he understands risks and benefits Supervisory-Addendum Brief Verification & Attestation Participated in pt care: history, MDM, physical Personally performed: exam, history, MDM, supervision of care Care discussed with: Medical Student Procedures: n/a Results interpretation: Verified all documentation Verification and Attestation of Medical Student E/M Service A medical student performed and documented this service in my presence. I reviewed and verified all information documented by the medical student and made modifications to such information, when appropriate. I personally performed the physical exam and medical decision making. Bartolo Tyler, Nov 02, 2020,18:59 MARIELA DOBSON MED STUDENT Nov 02, 2020 09:44 BARTOLO TYLER DO Nov 03, 2020 08:59
[2020-11-02] MEDS ORDERED: PATIENT MAY USE OWN MEDS, ALL PO SCH (10:15)
[2020-11-02] MEDS ORDERED: ACETAMINOPHEN 325 MG TABLET PO PRN (10:15)
[2020-11-02] MEDS ORDERED: MILK OF MAGNESIA 400 MG/5 ML 30 ML UDC PO PRN (10:15)
--- NOTE | 2020-11-02 10:29 | Peripheral Report ---
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 Post-Procedure Note Procedure Start Date: Nov 02, 2020 Name of Procedure: Bilateral lower extremity runoff Third order Additional imaging x2 Findings/Procedure Note PROCEDURE NOTE: 74 years old gentleman with peripheral arterial disease, foot ulcers, recurrent, scheduled for peripheral angiogram, noted to have underlying renal insufficiency and severe anemia. Decision was made to proceed with diagnostic angiogram with limited use of contrast and keep him in the hospital due to the fact that he has been holding his oral anticoagulation and proceed with workup for his underlying anemia. Dr. Tyler was consulted After explaining the procedure to the patient, all pros and cons were explained, all questions were answered. The patient signed the consent and then he was placed on the cardiac catheterization laboratory. The patient was placed on the cardiac catheterization laboratory. Groin was prepped SL fashion local anesthesia was used. Sheath placed in the left femoral artery, runoff to the left leg was done through the sheath then I did DSA imaging at the trifurcation level on the left leg then using a rim catheter I was able to cross over to the right side and advanced a stork wire then exchanged the catheter into long straight catheter, placed at the common iliac artery and runoff was done then I advanced a stork wire and passed the catheter down to the popliteal artery and did angiogram at the trifurcation level of the right leg then repeat angiogram down at the foot level of the right leg then the catheter was flushed, recorded the pressure at the popliteal artery and proximal SFA then common iliac then abdominal aorta then the catheter was removed. Addendum of the procedure sheath was removed, closure device deployed FINDINGS: Hemodynamics Popliteal artery 129/56 mean of 76 Proximal SFA 130/47 mean of 76 Common iliac 120/48 mean of 76 Abdominal aorta 116/43 mean of 73 Left lower extremity runoff: Heavily calcified artery with slow flow in the SFA, nonobstructive disease, at the trifurcation the posterior tibial artery has some ostial stenosis with good flow down to the foot, slow flow due to small vessel disease Right lower extremity runoff: Heavily calcified SFA, slow flow in the SFA and popliteal artery, no significant obstructive disease at the trifurcation, the posterior tibial artery has mid to distal moderate to severe lesion, persistent good flow with slow flow in all lower extremity artery due to small vessel disease CONCLUSIONS: 1. Heavily calcified arteries bilaterally with slow flow due to small vessel disease 2. Singular lesion at the mid to distal posterior tibial artery on the right side, small artery, consideration for intervention in the future if needed, I am hesitant to proceed with balloon angioplasty due to the renal insufficiency, severe anemia and intolerance to aggressive anticoagulation in addition to the fact that patient is still having good flow down to the foot DISCUSSION AND RECOMMENDATIONS: Continue to maximize medical therapy at this point Anesthesia Type: Conscious Sedation Estimated blood loss (mL): 20 ml Contrast Amount: 22 ml Total Radiation Dose: 43 mGy Post-Procedure Diagnosis Post-operative diagnosis: Nonhealing foot ulcer Peripheral arterial disease Anemia Hypertension CARMENCITA SANTOS MD Nov 02, 2020 10:29
[2020-11-02] MEDS: NS IV 1000 ML 1,000 ML IV SCH ×2 (13:27→18:58)
[2020-11-02] MEDS: DOCUSATE SODIUM 100 MG (COLACE) CAP PO SCH (19:36)
[2020-11-02] MEDS: HYDROcodone/APAP 7.5 MG/325 MG (LORTAB, LORCET PLUS) TABLET PO PRN (20:11)
[2020-11-02] MEDS: PREGABALIN 75 MG (LYRICA) CAP PO SCH (20:11)
[2020-11-02] MEDS ORDERED: NON-FORMULARY MEDICATION 1 EA EA (Docusate Sodium 100 MG) PO SCH (21:00)
[2020-11-02] MEDS ORDERED: MELATONIN 10 MG TABLET PO SCH (21:00)
[2020-11-02] MEDS ORDERED: NON-FORMULARY MEDICATION 1 EA EA (Melatonin 5 MG) PO SCH (21:00)
[2020-11-03 03:00] VITALS: BP 120/69
[2020-11-03] MEDS: NS IV 1000 ML 1,000 ML IV SCH (04:15)
[2020-11-03 04:36] LABS: HEMOGLOBIN 8.5 g/dL (13.3-17.7); MEAN PLATELET VOLUME 10.9 fL (9.0-12.2); WHITE BLOOD COUNT 6.4 10^3/uL (4.3-11.0)
[2020-11-03 04:53] LABS: BUN/CREATININE RATIO 21; CALCIUM 8.9 MG/DL (8.5-10.1); CARBON DIOXIDE 19 MMOL/L (21-32); CHLORIDE 109 MMOL/L (98-107); CREATININE SERUM 0.91 MG/DL (0.60-1.30); GFR ESTIMATED > 60; GLUCOSE 69 MG/DL (70-105); POTASSIUM 3.9 MMOL/L (3.6-5.0); SODIUM 138 MMOL/L (135-145)
--- NOTE | 2020-11-03 05:21 | Cardiology History & Physical ---
HPI-Cardiology Cardiology Consultation Date of Consultation 11/03/20 Date of Admission Time Seen by Provider: 08:16 Indication: anemia, peripheral arterial disease HPI 74 years old gentleman with refractory L disease nonhealing foot ulcer, had an abnormal DANIEL, scheduled for peripheral angiogram, prior to the procedure patient was noted to be severely anemic, reported history of workup in the past for anemia that failed to identify the source of blood loss. I transfused him one unit of packed RBCs and consulted Dr. Tyler for upper and lower endoscopy. Proceeded with diagnostic angiogram with limited amount of contrast used PMH-Cardiology Immunizations Up To Date Tetanus Booster (DTap): Unknown Date of Pneumonia Vaccine: Aug 26, 2015 Date of Influenza Vaccine: May 26, 2020 Seasonal Allergies Seasonal Allergies: No Surgeries Yes Respiratory Yes Cardiovascular Yes (heart failure with lower extremity edema) Atrial Fibrillation, Cardiomyopathy, Chronic Edema/Swelling, Hypertension, Congestive Heart Failure Neurological Yes (neuritis and neuralgia; dizziness) Genitourinary No Gastrointestinal Yes (ileus) Gastroesophageal Reflux, Liver Disease/Jaundice, Gastrointestinal Bleed, Hepatitis Musculoskeletal Yes (generalized muscle weakness, unsteadiness on feet) Endocrine Yes Diabetes, Non-Insulin dep HEENT No Loss of Vision: Denies Hearing Impairment: Denies Cancer No Psychosocial Yes Anxiety, Depression Integumentary No Blood Transfusions Yes (anemia) Other PMHx discussed below Social History Patient Social History Marrital Status: single Employed/Student: unemployed Smoking: Former smoker Have you traveled recently?: No Alcohol Use?: Unable to obtain Family Hx Significant Family History: No Pertinent Family Hx, Cancer, Diabetes Family History: Diabetes mellitus G8 BROTHER FH: testicular cancer 19 FATHER Unknown cancer 19 MOTHER ROS-Cardiology Review of Systems General: No Chills, No Night Sweats; Fatigue, Malaise; No Appetite HEENT: No Head Aches, No Visual Changes, No Eye Pain, No Ear Pain, No Dysphas ia, No Sinus Congestion, No Post Nasal Drip, No Sore Throat Pulmonary: No Dyspnea, No Cough, No Pleuritic Chest Pain Cardiovascular: No: Chest Pain, Palpitations, Orthopnea, Paroxysmal Noc. Dyspnea, Edema, Lt Headedness Gastrointestinal: No: Nausea, Vomiting, Abdominal Pain, Diarrhea, Constipation, Melena, Hematochezia Genitourinary: No Dysuria, No Frequency, No Incontinence, No Hematuria, No Retention Musculoskeletal: No: neck pain, shoulder pain, arm pain, back pain, hand pain, leg pain, foot pain Neurological: No: Weakness, Numbness, Incoordination, Change in speech, Confusion, Seizures Home Medications & Allergies Allergies: Coded Allergies: No Known Drug Allergies (Unverified , 10/25/17) Home Medication List Reviewed: Yes Exam-Cardiology Vital Signs Vital Signs Date Time Temp Pulse Resp B/P (MAP) Pulse Ox O2 Delivery O2 Flow Rate FiO2 11/03/20 08:10 96 Room Air 11/03/20 03:00 36.8 86 18 120/69 (86) Exam General Appearance: Alert, Oriented X3, Cooperative, No Acute Distress HEENT: Atraumatic, PERRLA Respiratory: Clear to Auscultation, Normal Air Movement Cardiovascular: Regular Rate, Normal S1, Normal S2, Other (systolic murmur at the left sternal border) Abdominal: Normal Bowel Sounds, Soft, No Tenderness, No Hepatosplenomegaly, No Masses Extremities: No Cyanosis, No Edema, No Tenderness/Swelling, Other (.) Skin: No Rashes, No Breakdown, No Significant Lesion Neuro: Normal Gait, Normal Speech, Strength at 5/5 X4 Ext, Normal Tone, Sensation Intact Psych/Mental Status: Mental Status NL, Mood NL Results Labs Labs Laboratory Tests 11/03/20 04:00: White Blood Count 6.4, Red Blood Count 3.36L, Hemoglobin 8.5L, Hematocrit 27L, Mean Corpuscular Volume 80, Mean Corpuscular Hemoglobin 25, Mean Corpuscular Hemoglobin Concent 32, Red Cell Distribution Width 16.5H, Platelet Count 225, Mean Platelet Volume 10.9, Sodium Level 138, Potassium Level 3.9, Chloride Level 109H, Carbon Dioxide Level 19L, Anion Gap 10, Blood Urea Nitrogen 19H, Creatinine 0.91, Estimat Glomerular Filtration Rate > 60, BUN/Creatinine Ratio 21, Glucose Level 69L, Calcium Level 8.9 11/03/20 05:52: Glucometer 70 11/03/20 06:26: Glucometer 101 A/P-Cardiology Admission Diagnosis PAD Anemia PAF HTN Admission Status: Inpatient Order (span 2 midnights) Reason for Inpatient Admission: anemia, non healing foot ulcer Assessment/Plan Peripheral artery disease, nonhealing foot ulcer on the right leg. Patient seen by Dr. Barajas for the ulcer in the past and elected conservative management. Had an DANIEL which was abnormal with significantly abnormal waveforms and TBI. The ulcer is persistent and worse at this time. Angiogram done on 11/02/2020 showing heavily calcified arteries, non obstructive disease except mid to distal lesion in the posterior tibial artery on the right side, medical therapy is recommended Anemia, reporting history of workup in the past, I will consult Surgery for evaluation especially with the need for anticoagulation nurses aide, possible colonoscopy, EGD, s/p transfusion one unit PRBC Atrial fibrillation, controlled heart rate, appeared to be chronic, seen in the emergency room in September 2019 and had been on Xarelto. currently on hold, planning to restart once okay with Dr. Tyler Hypertension, blood pressure is controlled. Monitor blood pressure Hyperlipidemia, monitor lipids Echocardiogram done in September 2019 showing normal left ventricular size, EF 60-65 percent, mild MR, aortic valve sclerosis, PA pressure 22 mmHg. Continue to monitor Diabetes mellitus, followed and managed by primary care physician Tobaccoism, stopped smoking in April or May History of Hepatitis CARMENCITA SANTOS MD Nov 03, 2020 05:21
[2020-11-03] MEDS ORDERED: DEXTROSE 50% 50 ML (IMS) SYR ONE (05:49)
[2020-11-03] MEDS ORDERED: DEXTROSE 50% 50 ML (IMS) SYR IV ONE (06:00)
[2020-11-03 08:00] VITALS: BP 135/96
--- NOTE | 2020-11-03 08:05 | Progress Note - Surgery ---
SREE MCKEON MED STUDENT 11/03/20 0804: Subjective Date Seen by a Provider: Nov 03, 2020 Time Seen by a Provider: 07:18 Subjective/Events-last exam Pt states that he was able to rest well, that he took the bowel prep as recommended and that he hasn't had anything to eat or drink since midnight. That this morning his blood sugars were low. He says he is feeling good overall without pain and doesn't think that there is going to be anything found during the procedure but understands that it is necessary to check. He states that he is hungry and would like to know when the procedure will be done. Pt has no new medical complaints or concerns. Focused Exam Respiratory: Chest Non Tender, Lungs Clear, Normal Breath Sounds, No Accessory Muscle Use, No Respiratory Distress Cardiovascular: Regular Rate, Rhythm, No Edema, No Gallop, No JVD, Normal Peripheral Pulses Objective Exam Vital Signs Date Time Temp Pulse Resp B/P (MAP) Pulse Ox O2 Delivery O2 Flow Rate FiO2 11/03/20 03:00 36.8 86 18 120/69 (86) 93 Room Air 11/03/20 01:00 76 11/02/20 23:17 37.0 82 16 124/73 (90) 94 Room Air 11/02/20 20:20 96 Room Air 11/02/20 20:00 36.6 120 20 140/97 (111) 94 Room Air 11/02/20 19:00 100 11/02/20 16:15 105 18 131/108 (116) 96 Room Air 11/02/20 15:30 36.8 80 19 136/93 (107) 95 Room Air 11/02/20 12:41 68 11/02/20 12:33 96 Room Air 11/02/20 11:45 36.2 68 18 122/77 (92) 96 Room Air 11/02/20 11:30 36.3 77 16 107/62 96 Room Air 11/02/20 11:25 36.3 74 16 103/67 96 Room Air 11/02/20 11:20 36.2 63 16 103/63 95 Room Air 11/02/20 11:15 81 18 116/87 (97) 96 Room Air 11/02/20 11:15 36.2 74 18 116/87 96 Room Air 11/02/20 11:00 81 18 128/89 (102) 95 Room Air 11/02/20 10:45 80 16 118/79 (92) 94 Room Air 11/02/20 10:33 86 11/02/20 10:30 36.3 87 18 110/80 (90) 96 Room Air 11/02/20 08:02 36.3 83 18 111/67 (82) 97 Room Air I & O 11/03/20 07:00 Intake Total 625 ml Output Total 1000 ml Balance -375 ml Capillary Refill : Less Than 3 Seconds General Appearance: No Apparent Distress, WD/WN HEENT: PERRL/EOMI, Normal ENT Inspection, Pharynx Normal Neck: Full Range of Motion, Normal Inspection, Non Tender, Supple Respiratory: Chest Non Tender, Lungs Clear, Normal Breath Sounds, No Accessory Muscle Use, No Respiratory Distress Cardiovascular: Regular Rate, Rhythm, No Edema, Normal Peripheral Pulses Peripheral Pulses: 2+ Radial Pulses (R), 2+ Radial Pulses (L) Gastrointestinal: non tender, soft Extremity: Normal Inspection, Non Tender, No Calf Tenderness, No Pedal Edema Neurologic/Psychiatric: Alert, Oriented x3, No Motor/Sensory Deficits, Normal Mood/Affect Skin: Normal Color, Warm/Dry Lymphatic: No Adenopathy Results Lab Laboratory Tests 11/02/20 08:05: White Blood Count 8.2, Red Blood Count 3.20L, Hemoglobin 7.7L, Hematocrit 26L, Mean Corpuscular Volume 81, Mean Corpuscular Hemoglobin 24L, Mean Corpuscular Hemoglobin Concent 30L, Red Cell Distribution Width 16.7H, Platelet Count 247, Mean Platelet Volume 10.1, Prothrombin Time 16.1H, INR Comment 1.2, Activated Partial Thromboplast Time 44H, Sodium Level 138, Potassium Level 4.2, Chloride Level 106, Carbon Dioxide Level 22, Anion Gap 10, Blood Urea Nitrogen 26H, Creatinine 1.26, Estimat Glomerular Filtration Rate 56, BUN/Creatinine Ratio 21, Glucose Level 82, Calcium Level 8.9, Corrected Calcium 9.1, Total Bilirubin 0.5, Aspartate Amino Transf (AST/SGOT) 17, Alanine Aminotransferase (ALT/SGPT) 14, Alkaline Phosphatase 142H, Total Protein 7.5, Albumin 3.7, Triglycerides Level 47, Cholesterol Level 92, LDL Cholesterol Direct 41, VLDL Cholesterol 9, HDL Cholesterol 40 11/03/20 04:00: White Blood Count 6.4, Red Blood Count 3.36L, Hemoglobin 8.5L, Hematocrit 27L, Mean Corpuscular Volume 80, Mean Corpuscular Hemoglobin 25, Mean Corpuscular Hemoglobin Concent 32, Red Cell Distribution Width 16.5H, Platelet Count 225, Mean Platelet Volume 10.9, Sodium Level 138, Potassium Level 3.9, Chloride Level 109H, Carbon Dioxide Level 19L, Anion Gap 10, Blood Urea Nitrogen 19H, Creatinine 0.91, Estimat Glomerular Filtration Rate > 60, BUN/Creatinine Ratio 21, Glucose Level 69L, Calcium Level 8.9 11/03/20 05:52: Glucometer 70 11/03/20 06:26: Glucometer 101 Assessment/Plan Assessment/Plan Assessment/Plan ASSESSMENT 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 Tolerated prep. Hgb 8.5. No new complaints. Denies n/v fever sweats chills shortness of breath or chest pain. 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 Supervisory-Addendum Brief Verification & Attestation Participated in pt care: history, MDM, physical Personally performed: exam, history, MDM, supervision of care Care discussed with: Medical Student Procedures: n/a Results interpretation: Verified all documentation Verification and Attestation of Medical Student E/M Service A medical student performed and documented this service in my presence. I reviewed and verified all information documented by the medical student and made modifications to such information, when appropriate. I personally performed the physical exam and medical decision making. Bartolo Tyler, Nov 03, 2020,13:17 SREE MCKEON MED STUDENT Nov 03, 2020 08:04 BARTOLO TYLER DO Nov 03, 2020 13:17
--- NOTE | 2020-11-03 08:20 | Discharge Inst-Post CATH ---
Discharge Inst-CATH/EP Problems Reviewed?: Yes Post Cardiac Cath/EP D/C Inst Follow Up/Plan appointment with Dr. Escalona's office in 2-4 weeks <b>CARDIAC CATH/EP PROCEDURE DISCHARGE INSTRUCTIONS</b> ACTIVITY * Go Home directly and rest. * Limit activity of the leg (or wrist if it was used) for 7 days including aerobics, swimming, jogging, bicycling, etc. * Restrict stair-climbing for 7 days if possible, if not, climb up with your non-cath leg, then bring together on the same step. * Avoid lifting, pushing, pulling or excessive movement of the affected extremity for 7 days. * Customary sexual activity may be resumed after 2 days-use caution not to use a position that strains or causes pain to the affected extremity. * No driving for 24 hours. * NO SMOKING. * Avoid straining for bowel movements for 7 days. * Gentle walking on level ground is allowed. * Returning to work will depend on the type of procedure and the results. Your doctor will discuss this with you. CALL YOUR DOCTOR FOR ANY OF THE FOLLOWING: *If bleeding from the puncture site occurs- Apply gentle pressure to site with clean cloth and call your doctor or EMS. * If a knot or lump forms under the skin, increases in size, or causes pain. * If bruising appears to be worsening or moving further down your leg instead of disappearing. * Temperature above 101 F. CARE OF YOUR GROIN INCISION; * Bruising or purple discoloration of the skin near the puncture site is common. * You may shower only, no bathtub bathing for 5 days. Be careful to avoid slipping as your leg may feel stiff. * If a closure device was used on your femoral artery, please see the attached guide regarding care of the device and your leg. * Leave dressing on FOR 24 hours. CARE OF YOUR WRIST INCISION; * Bruising or purple discoloration of the skin near the puncture site is common. * You may shower. * DO NOT submerge wrist. * Leave dressing on FOR 24 hours. CARMENCITA ESCALONA MD Nov 03, 2020 08:20
[2020-11-03] MEDS: PREGABALIN 75 MG (LYRICA) CAP PO SCH ×2 (11:09→15:08)
[2020-11-03] MEDS: DOCUSATE SODIUM 100 MG (COLACE) CAP PO SCH (11:09)
[2020-11-03] MEDS: FOLIC ACID 1 MG TAB PO SCH ×2 (11:09→15:08)
[2020-11-03] MEDS: PANTOPRAZOLE 40 MG (PROTONIX) TAB PO SCH ×2 (11:10→15:09)
[2020-11-03 12:13] VITALS: BP 138/94
[2020-11-03] MEDS ORDERED: LACTATED RINGERS 1,000 ML IV ONE (12:37)
[2020-11-03] MEDS ORDERED: HURRICAINE EXT TUBE (BENZOCAINE) ONE (12:37)
[2020-11-03] MEDS ORDERED: MIDAZOLAM 2 MG/2 ML (VERSED) VIAL ONE (13:09)
[2020-11-03] MEDS ORDERED: PROPOFOL INJECTION 50 ML IV ONE (13:09)
[2020-11-03] MEDS ORDERED: LACTATED RINGERS 1,000 ML IV STA (13:20)
[2020-11-03] MEDS ORDERED: HURRICAINE EXT TUBE (BENZOCAINE) XX PRN (13:30)
[2020-11-03] MEDS: DIGOXIN 0.125 MG (LANOXIN) TAB PO SCH ×2 (13:31→15:08)
[2020-11-03] MEDS: lisINopril 10 MG (PRINIVIL) TABLET PO SCH ×2 (13:31→15:09)
[2020-11-03] MEDS: FUROSEMIDE 40 MG (LASIX) TAB PO SCH ×2 (13:31→15:09)
[2020-11-03 14:00] VITALS: BP 97/66
[2020-11-03 14:05] VITALS: BP 102/62
[2020-11-03 14:10] VITALS: BP 110/69
--- NOTE | 2020-11-03 14:15 | Anesthesia-General Post-Op ---
MAC Patient Condition Mental Status/LOC: Same as Preop Cardiovascular: Satisfactory Nausea/Vomiting: Absent Respiratory: Satisfactory Pain: Controlled Complications: Absent Post Op Complications Complications None Follow Up Care/Instructions Patient Instructions None needed. Anesthesiology Discharge Order Discharge Order Patient is doing well, no complaints, stable vital signs, no apparent adverse anesthesia problems. LETI RAUSCH DO Nov 03, 2020 14:15
--- NOTE | 2020-11-03 14:23 | Progress Note-Post Operative ---
Post-Operative Progess Note Surgeon (s)/Counsel (s) Surgeon CRUZITO CHASE DO Counsel: na Pre-Operative Diagnosis anemia, possible gi bleed Post-Operative Diagnosis normal egd, cecal and transverse colon ulceration, diverticulosis Procedure & Operative Findings Date of Procedure 11/03/20 Procedure Performed/Findings egd and colonoscopy with biopsies of cecal and transverse colon ulceration with jayson inking distal to transverse colon ulceration. Anesthesia Type per mda Estimated Blood Loss Estimated blood loss (mL): scant Specimens/Packing Specimens Removed cecal and transverse colon ulceration CRUZITO CHASE DO Nov 03, 2020 14:23
[2020-11-03] MEDS: HYDROcodone/APAP 7.5 MG/325 MG (LORTAB, LORCET PLUS) TABLET PO PRN (15:09)
--- NOTE | 2020-11-03 21:52 | OPERATIVE REPORT ---
DATE OF SERVICE: 11/03/2020 PREOPERATIVE DIAGNOSIS: Anemia, possible gastrointestinal bleed. POSTOPERATIVE DIAGNOSES: Normal EGD, cecal and transverse colon ulceration, diverticulosis. PROCEDURE: EGD and colonoscopy with biopsy of the cecal and transverse colon ulceration with Sonia inking distal to the transverse colon ulceration. SURGEON: Cruzito Tyler DO ANESTHESIA: Per MDA. ESTIMATED BLOOD LOSS: Scant. COMPLICATIONS: None. INDICATIONS: The patient is a 74-year-old male who was found to be anemic. He has been off his Xarelto and has been requested that EGD and colonoscopy be performed. He understands risks and benefits of procedure and wished to proceed with procedure. Consent was signed in the chart. DESCRIPTION OF PROCEDURE: The patient was taken to the endoscopy suite, placed in left lateral recumbent position. Timeout was performed. Scope was inserted in mouth, down the esophagus, stomach and into the duodenum without difficulty. There were no polyps, masses or ulcerations. Scope was then slowly retracted back into stomach where it was further insufflated. There were no polyps, masses or ulcerations. Scope was retroflexed noting no other pathology. Scope was returned to its normal position, slowly withdrawn to distal esophagus, which had normal appearance. No polyps, masses or ulcerations. Scope was slowly retracted back to completely remove noting no other pathology. Digital rectal exam was performed. There were no palpable polyps, masses or ulcerations. Scope was inserted in the rectum, advanced all the way to cecum with minimal difficulty. Prep was adequate with lots of irrigation and suction. In the cecum, appearance of a small ulceration with some reactive tissue around it is present. Biopsies of this area were obtained. Scope was then slowly retracted back. No polyps, masses or ulcerations within the ascending colon. In the beginning of the transverse colon near the hepatic flexure, another small ulceration appearance was present. Cold biopsies were obtained. Just distal to this area, Sonia ink was injected in two locations a 1 mL in each spot. The scope was then continuously retracted back, also starting to note diverticulosis throughout the transverse, descending and sigmoid colon. No polyps, masses or ulcerations within the remainder of the transverse, descending or sigmoid colon. Once in the rectum, scope was retroflexed noting no other pathology. Scope was returned to its normal position, slowly withdrawn until completely removed. The patient tolerated procedure well without any complications. He was taken to recovery room in stable condition. RECOMMENDATIONS: The patient will follow up in the office in approximately 2 weeks to discuss pathology results. Further recommendations pending results. No active bleeding visualized. Job ID: [id number] DocumentID: [id number] Dictated Date: 11/03/2020 14:33:01 Production Line Worker Date: 11/03/2020 21:51:21 Dictated By: CRUZITO TYLER DO
== END 2020-11-03 15:30 | disposition other institution (70) ==
LOC: CATH 07:35 → CSD 10:23 → CATH 11-03 15:30
PROVIDERS: ATTEND Internal Medicine Cardiovascular Disease
DX: K51.90 Ulcerative colitis, unspecified, without complications (principal); D64.9 Anemia, unspecified; K57.30 Diverticulosis of large intestine without perforation or abscess without bleeding; I11.0 Hypertensive heart disease with heart failure; I50.9 Heart failure, unspecified; I48.91 Unspecified atrial fibrillation; F41.9 Anxiety disorder, unspecified; F32.9 Major depressive disorder, single episode, unspecified; K21.9 Gastro-esophageal reflux disease without esophagitis; E78.2 Mixed hyperlipidemia; E11.9 Type 2 diabetes mellitus without complications; I48.0 Paroxysmal atrial fibrillation; I11.9 Hypertensive heart disease without heart failure; Z79.899 Other long term (current) drug therapy; Z87.891 Personal history of nicotine dependence
CPT/HCPCS: 36247; 36248; 43239; 45380; 45381; 71045; 75716; 80048; 80053; 80061; 82962; 85027 ×2; 85610; 85730; 86850; 86900; 86901; 86920; 87081; 88305; C1760; C1769; C1887 ×2; C1894; P9016; 36415

== ENCOUNTER → 2020-11-17 | Outpatient (CLI) | payer MEDICARE ==
[~2020-11-17] MED LIST changes: +ACET325T38 PO; +ASCO-262 PO; +DOCU100T2 PO; +MAGN400O7 PO; +MENT118G TP; +MIRT30TA6 PO; +MULT-1009 PO; +POLY17PO6 PO; +PREG75CA PO; +ZINC56.715 TP
== END ==
LOC: WOUNDCARE 12:40
PROVIDERS: ATTEND Surgery
DX: E11.621 Type 2 diabetes mellitus with foot ulcer (principal); E11.42 Type 2 diabetes mellitus with diabetic polyneuropathy; L97.412 Non-pressure chronic ulcer of right heel and midfoot with fat layer exposed; M14.671 Charcot's joint, right ankle and foot; I70.234 Atherosclerosis of native arteries of right leg with ulceration of heel and midfoot; E11.52 Type 2 diabetes mellitus with diabetic peripheral angiopathy with gangrene; F10.20 Alcohol dependence, uncomplicated
CPT/HCPCS: 11042; G0463

== ENCOUNTER → 2020-11-24 | Outpatient (CLI) | payer MEDICARE | LOC: WOUNDCARE 12:48 | PROVIDERS: ATTEND Surgery | DX: E11.621 Type 2 diabetes mellitus with foot ulcer (principal); I96 Gangrene, not elsewhere classified; E11.42 Type 2 diabetes mellitus with diabetic polyneuropathy; L97.412 Non-pressure chronic ulcer of right heel and midfoot with fat layer exposed; M14.671 Charcot's joint, right ankle and foot; I70.234 Atherosclerosis of native arteries of right leg with ulceration of heel and midfoot; F10.20 Alcohol dependence, uncomplicated | CPT/HCPCS: 11042; G0463 ==

== ENCOUNTER → 2020-12-01 | Outpatient (CLI) | payer MEDICARE | LOC: WOUNDCARE 12:58 | PROVIDERS: ATTEND Surgery | DX: E11.621 Type 2 diabetes mellitus with foot ulcer (principal); I96 Gangrene, not elsewhere classified; E11.42 Type 2 diabetes mellitus with diabetic polyneuropathy; L97.412 Non-pressure chronic ulcer of right heel and midfoot with fat layer exposed; M14.671 Charcot's joint, right ankle and foot; I70.234 Atherosclerosis of native arteries of right leg with ulceration of heel and midfoot; F10.20 Alcohol dependence, uncomplicated | CPT/HCPCS: 11042; G0463 ==

== ENCOUNTER → 2020-12-08 | Outpatient (CLI) | payer MEDICARE | LOC: WOUNDCARE 13:00 | PROVIDERS: ATTEND Orthopaedic Surgery Hand Surgery | DX: E11.52 Type 2 diabetes mellitus with diabetic peripheral angiopathy with gangrene (principal); E11.42 Type 2 diabetes mellitus with diabetic polyneuropathy; E11.621 Type 2 diabetes mellitus with foot ulcer; L97.412 Non-pressure chronic ulcer of right heel and midfoot with fat layer exposed; I70.261 Atherosclerosis of native arteries of extremities with gangrene, right leg; E11.610 Type 2 diabetes mellitus with diabetic neuropathic arthropathy; F10.20 Alcohol dependence, uncomplicated | CPT/HCPCS: 11042; G0463 ==

== ENCOUNTER → 2020-12-15 | Outpatient (CLI) | payer MEDICARE | LOC: WOUNDCARE 12:58 | PROVIDERS: ATTEND Surgery | DX: E11.621 Type 2 diabetes mellitus with foot ulcer (principal); E11.42 Type 2 diabetes mellitus with diabetic polyneuropathy; L97.412 Non-pressure chronic ulcer of right heel and midfoot with fat layer exposed; M14.671 Charcot's joint, right ankle and foot; I70.234 Atherosclerosis of native arteries of right leg with ulceration of heel and midfoot; F10.20 Alcohol dependence, uncomplicated | CPT/HCPCS: 99212 ==